=== PATIENT | male | born 1945 | race Caucasian/White ===

== ENCOUNTER 2017-07-23 17:13 | Inpatient (IN) | payer BC ==
[2017-07-23] MEDS ORDERED: ASPIRIN 81 MG CHEWABLE TABLET ONE (17:52)
[2017-07-23] MEDS ORDERED: LOSARTAN POTASSIUM 50 MG TABLET PO ONE (18:00)
[2017-07-23 18:21] LABS: Protime INR 1.17
[2017-07-23 18:27] LABS: Absolute Lymphocytes (CBC) 0.9 K/uL (0.7-4.9); Absolute Monocytes 0.7 K/uL (0.1-1.3); Absolute Neutrophil 5.7 K/uL (1.8-8.0); Basophils % 0.9 % (0-1.3); Eosinophils % 1.5 % (0-4.4); Hematocrit 28.7 % (39.6-49.0); MCH 26.6 pg (27.0-35.0); MCV 83.7 fL (80-100); MPV 7.2 fL (7.6-11.3); Monocytes % 9.7 % (3.3-12.3); RBC Red Blood Cell Count 3.43 M/uL (4.33-5.43)
[2017-07-23 18:29] LABS: Potassium 4.9 mEq/L (3.6-5.0)
[2017-07-23 18:35] LABS: Albumin 2.9 g/dL (3.2-5.5); Bilirubin Direct 0.2 mg/dL (0-0.2); Bilirubin Total 0.6 mg/dL (0.3-1.2); Magnesium 2.1 mg/dL (1.8-2.5); Protein, Total 6.8 g/dL (6.0-8.3)
--- NOTE | 2017-07-23 19:55 | EDPHYS ---
Physician Documentation [facility] Name: Navjot Collins Age: 72 yrs Sex: Male : 1945 Arrival Date: 07/23/2017 Time: 17:16 Bed 8 Private MD: ED Physician Tomas Moise HPI: 07/23 19:40 This 72 yrs old Male presents to ER via EMS with complaints of Shortness Of wa Breath. 19:40 The patient has shortness of breath at rest. Onset: The symptoms/episode began/occurred wa 3 week(s) ago. Duration: The symptoms are continuous, and are steadily getting worse, also c/o R leg swelling. denies chest pain. The patient's shortness of breath is aggravated by exertion, is alleviated by nothing. Associated signs and symptoms: Pertinent negatives: chest pain, non-productive cough, dizziness, fever, loss of consciousness. Severity of symptoms: At their worst the symptoms were moderate in the emergency department the symptoms are unchanged. The patient has experienced similar episodes in the past, a few times. The patient has not recently seen a physician. Historical: - Allergies: 17:24 Codeine; hb 17:24 fedrazil; hb 17:24 Vicodin; hb 17:24 Demerol; hb - Home Meds: 17:24 amiodarone 200 mg Oral tab 1 tab 2 times per day [Active]; atorvastatin 40 mg Oral tab hb 1 tab once daily [Active]; Bello Aspirin 81 mg tab Oral 1 tab once daily [Active]; bumetanide 1 mg Oral tab 1 tab once daily [Active]; carvedilol 6.25 mg Oral tab 1 tab every 12 hours [Active]; dobutamine intravenous 5 mcg/kg/min (89.4 Kg) [Active]; docusate sodium 100 mg Oral tab [Active]; Eliquis 5 mg Oral tab 1 tab 2 times per day [Active]; famotidine 20 mg Oral tab 1 tab once daily [Active]; famotidine 20 mg Oral tab [Active]; fenasteride 5 mg daily [Active]; glipizide 10 mg Oral tab 1 tab 2 times per day [Active]; Levemir 100 unit/mL subcutaneous soln 15 units in am and 3 units at 2100 [Active]; insulin regular human injection sliding tid [Active]; liothyronine 25 mcg Oral tab 1 tab once daily [Active]; losartan 50 mg Oral tab 1 tab once daily [Active]; metformin 500 mg Oral tab 1 tab 2 times per day [Active]; magnesium oxide 400 mg Oral tab [Active]; minocycline 100 mg Oral cap 1 cap every 12 hours [Active]; zinc sulfate 220 mg Oral tab daily [Active]; tamsulosin 0.4 mg Oral cp24 1 cap once daily [Active]; tramadol 50 mg Oral tab 1 tab every 6 hours [Active]; - PMHx: 17:24 CHF; Diabetes - NIDDM; HTN; hb - PSHx: 17:24 5 vessel bypass; left lower leg amputation; hb - Immunization history:: Adult Immunizations up to date. - Social history:: Smoking status: Patient/guardian denies using tobacco. - Family history:: not pertinent. - Hospitalizations: : No recent hospitalization is reported. ROS: 19:42 Constitutional: Negative for fever, chills, and weight loss, Eyes: Negative for injury, wa pain, redness, and discharge, ENT: Negative for injury, pain, and discharge, Neck: Negative for injury, pain, and swelling, Cardiovascular: Negative for chest pain, palpitations, and edema, Abdomen/GI: Negative for abdominal pain, nausea, vomiting, diarrhea, and constipation, Back: Negative for injury and pain, : Negative for injury, bleeding, discharge, and swelling, Neuro: Negative for headache, weakness, numbness, tingling, and seizure, Psych: Negative for depression, anxiety, suicide ideation, homicidal ideation, and hallucinations. 19:42 Respiratory: Positive for shortness of breath, at rest. Negative for cough. 19:42 MS/extremity: Positive for swelling, tenderness. 19:42 Skin: Positive for erythema, swelling, diffuse superficial wounds/ulcers. 19:42 All other systems are negative. Exam: 19:44 Constitutional: This is a well developed, well nourished patient who is awake, alert, wa and in no acute distress. Head/Face: Normocephalic, atraumatic. Eyes: Pupils equal round and reactive to light, extra-ocular motions intact. Lids and lashes normal. Conjunctiva and sclera are non-icteric and not injected. Cornea within normal limits. Periorbital areas with no swelling, redness, or edema. ENT: Nares patent. No nasal discharge, no septal abnormalities noted. Tympanic membranes are normal and external auditory canals are clear. Oropharynx with no redness, swelling, or masses, exudates, or evidence of obstruction, uvula midline. Mucous membranes moist. Neck: Trachea midline, no thyromegaly or masses palpated, and no cervical lymphadenopathy. Supple, full range of motion without nuchal rigidity, or vertebral point tenderness. No Meningismus. Chest/axilla: Normal chest wall appearance and motion. Nontender with no deformity. No lesions are appreciated. Abdomen/GI: Soft, non-tender, with normal bowel sounds. No distension or tympany. No guarding or rebound. No evidence of tenderness throughout. Back: No spinal tenderness. No costovertebral tenderness. Full range of motion. Neuro: Awake and alert, GCS 15, oriented to person, place, time, and situation. Cranial nerves II-XII grossly intact. Motor strength 5/5 in all extremities. Sensory grossly intact. Cerebellar exam normal. Normal gait. Psych: Awake, alert, with orientation to person, place and time. Behavior, mood, and affect are within normal limits. 19:44 Cardiovascular: Rate: normal, Heart sounds: murmur, systolic. 19:44 Respiratory: the patient does not display signs of respiratory distress, Respirations: normal, Breath sounds: coarse bilaterally. 19:44 Musculoskeletal/extremity: L BKA. R leg swelling with 1+ pitting edema. noted superficial cuts with erythema and superficial ulcerations. Vital Signs: 17:18 BP 129 / 73; Pulse 61; Resp 18; Temp 98.4; Pulse Ox 96% on R/A; Pain 0/10; hb 18:32 BP 122 / 86; Pulse 60; Resp 17; Pulse Ox 100% on R/A; Pain 0/10; hb 19:29 BP 117 / 55; Pulse 58; Resp 18 S; Temp 98.7(O); Pulse Ox 98% on R/A; Pain 0/10; ea 20:00 BP 120 / 77; Pulse 60; Resp 18; Pulse Ox 98% on R/A; Pain 0/10; ea 21:15 BP 118 / 68; Pulse 60; Resp 18; Pulse Ox 99% on R/A; ea 22:19 BP 102 / 68; Pulse 60; Resp 18; Temp 98; Pulse Ox 97% on R/A; Pain 0/10; mg2 MDM: 17:16 Patient medically screened. pa 19:46 Differential diagnosis: CHF exacerbation, Myocardial Infarction pneumonia, pulmonary wa edema, Pulmonary Embolism Unstable Angina cellulitis. DVT. Data reviewed: vital signs, nurses notes, lab test result(s), EKG, radiologic studies. Test interpretation: by ED physician or midlevel provider: EKG: HR: 60. rightward axis. non-specific ST-T changes. 19:48 Test interpretation: by ED physician or midlevel provider: labs noted for anemia. pa elevated BNP and d-dimer. renal insufficiency. hyperglycemia. 07/23 17:33 Order name: CPK; Complete Time: 19:22 07/23 17:33 Order name: Amylase, Serum; Complete Time: 19:22 07/23 17:33 Order name: Blood Culture Adult (2) 07/23 17:33 Order name: BMP; Complete Time: 19:22 07/23 17:33 Order name: BNP; Complete Time: 19:22 07/23 17:33 Order name: CBC with Diff; Complete Time: 19:22 07/23 17:33 Order name: D-Dimer; Complete Time: 19:22 07/23 17:33 Order name: Hepatic Function; Complete Time: 19:22 07/23 17:33 Order name: Lipase; Complete Time: 19:23 07/23 17:33 Order name: Magnesium; Complete Time: 19:23 07/23 17:33 Order name: PT-INR; Complete Time: 19:22 07/23 17:33 Order name: Ptt, Activated; Complete Time: 19:23 07/23 17:33 Order name: Troponin (emerg Dept Use Only); Complete Time: 19:23 07/23 17:33 Order name: EKG; Complete Time: 18:00 07/23 17:33 Order name: Cardiac monitoring; Complete Time: 17:53 07/23 17:33 Order name: EKG - Nurse/Tech; Complete Time: 18:57 07/23 17:33 Order name: IV Saline Lock; Complete Time: 17:53 07/23 17:33 Order name: Labs collected and sent; Complete Time: 18:57 07/23 17:33 Order name: O2 Per Protocol; Complete Time: 18:57 07/23 17:33 Order name: O2 Sat Monitoring; Complete Time: 18:57 pa 07/23 18:22 Order name: Chest Single View [facility] 07/23 19:24 Order name: US Extremity Venous Uni Ltd pa 07/23 19:25 Order name: CT Chest For PE Angio; Complete Time: 20:32 pa Administered Medications: 17:55 Drug: Aspirin Chewable Tablet 324 mg Route: PO; hb 19:00 Follow up: Response: No adverse reaction ea 18:08 Drug: Losartan 50 mg Route: PO; aj 19:00 Follow up: Response: No adverse reaction ea 21:00 Drug: Lasix 40 mg Route: IVP; Site: right antecubital; ea 21:19 Follow up: Response: No adverse reaction ea Disposition: 07/23/17 19:54 Hospitalization ordered by Rodo Paz for Inpatient Admission. Preliminary diagnosis are dyspnea, Right Lower Extremity Swelling, CHF, R leg cellulitis. - Bed requested for Telemetry/MedSurg (Inpatient). - Status is Inpatient Admission. mg2 - Condition is Stable. - Problem is an acute exacerbation. - Symptoms have improved. UTI on Admission? No Signatures: Dispatcher [employer] EDLA Ana Paula Kumar RN Tisha Hatfield RN RN Dayna Cabral [facility] Carey Villar RN RN Tomas Diaz MD MD wa Gardose, Michele RN RN mg2 Corrections: (The following items were deleted from the chart) 18:22 18:00 Chest Pa And Lat (2 Views)+[email or web address] ordered. [facility] 19:54 19:54 Hospitalization Ordered by Rodo Paz MD for Inpatient Admission. Preliminary pa diagnosis is dyspnea; Right Lower Extremity Swelling; CHF; R leg cellulitis. Bed requested for Telemetry/MedSurg (Inpatient). Status is Inpatient Admission. Condition is Stable. Problem is an acute exacerbation. Symptoms have improved. UTI on Admission? No. pa 20:48 19:54 07/23/2017 19:54 Hospitalization Ordered by Rodo Paz MD for Inpatient [facility] Admission. Preliminary diagnosis is dyspnea; Right Lower Extremity Swelling; CHF; R leg cellulitis. Bed requested for Telemetry/MedSurg (Inpatient). Status is Inpatient Admission. Condition is Stable. Problem is an acute exacerbation. Symptoms have improved. UTI on Admission? No. wa 22:33 20:48 07/23/2017 19:54 Hospitalization Ordered by Rodo Paz MD for Inpatient mg2 Admission. Preliminary diagnosis is dyspnea; Right Lower Extremity Swelling; CHF; R leg cellulitis. Bed requested for Telemetry/MedSurg (Inpatient). Status is Inpatient Admission. Condition is Stable. Problem is an acute exacerbation. Symptoms have improved. UTI on Admission? No. dh3
--- NOTE | 2017-07-23 19:55 | ER ---
Nurse's Notes [facility] Name: Navjot Collins Age: 72 yrs Sex: Male : 1945 Arrival Date: 07/23/2017 Time: 17:16 Bed 8 Private MD: Diagnosis: dyspnea;Right Lower Extremity Swelling;CHF;R leg cellulitis Presentation: 07/23 17:17 Presenting complaint: EMS states: SOB and sinus congestion x 3 days. BP 137/74, HR 60, hb SpO2 100% on RA, BGL 470. Transition of care: patient was not received from another setting of care. Onset of symptoms is unknown. Care prior to arrival: None. 17:17 Method Of Arrival: EMS: [facility] hb 17:17 Acuity: ZENAIDA 3 hb Historical: - Allergies: 17:24 Codeine; hb 17:24 fedrazil; hb 17:24 Vicodin; hb 17:24 Demerol; hb - Home Meds: 17:24 amiodarone 200 mg Oral tab 1 tab 2 times per day [Active]; atorvastatin 40 mg Oral tab hb 1 tab once daily [Active]; Bello Aspirin 81 mg tab Oral 1 tab once daily [Active]; bumetanide 1 mg Oral tab 1 tab once daily [Active]; carvedilol 6.25 mg Oral tab 1 tab every 12 hours [Active]; dobutamine intravenous 5 mcg/kg/min (89.4 Kg) [Active]; docusate sodium 100 mg Oral tab [Active]; Eliquis 5 mg Oral tab 1 tab 2 times per day [Active]; famotidine 20 mg Oral tab 1 tab once daily [Active]; famotidine 20 mg Oral tab [Active]; fenasteride 5 mg daily [Active]; glipizide 10 mg Oral tab 1 tab 2 times per day [Active]; Levemir 100 unit/mL subcutaneous soln 15 units in am and 3 units at 2100 [Active]; insulin regular human injection sliding tid [Active]; liothyronine 25 mcg Oral tab 1 tab once daily [Active]; losartan 50 mg Oral tab 1 tab once daily [Active]; metformin 500 mg Oral tab 1 tab 2 times per day [Active]; magnesium oxide 400 mg Oral tab [Active]; minocycline 100 mg Oral cap 1 cap every 12 hours [Active]; zinc sulfate 220 mg Oral tab daily [Active]; tamsulosin 0.4 mg Oral cp24 1 cap once daily [Active]; tramadol 50 mg Oral tab 1 tab every 6 hours [Active]; - PMHx: 17:24 CHF; Diabetes - NIDDM; HTN; hb - PSHx: 17:24 5 vessel bypass; left lower leg amputation; hb - Immunization history:: Adult Immunizations up to date. - Social history:: Smoking status: Patient/guardian denies using tobacco. - Family history:: not pertinent. - Hospitalizations: : No recent hospitalization is reported. Screenin:26 Abuse screen: Denies threats or abuse. Denies injuries from another. Nutritional hb screening: No deficits noted. Tuberculosis screening: No symptoms or risk factors identified. Fall Risk Total [place] Fall Scale indicates Low Risk Score (25-44 pts). Fall prevention measures have been instituted. Side Rails Up X 2 Frequent Obs/Assesments occuring As available Patient and Family Educated on Fall Prevention Program and strategies. Assessment: 17:45 General: Appears in no apparent distress. Behavior is calm, cooperative. Pain: Denies hb pain. Neuro: Level of Consciousness is awake, alert, obeys commands, Oriented to person, place, time, situation. Cardiovascular: Heart tones S1 S2 present Capillary refill < 3 seconds Patient's skin is warm and dry. Rhythm is regular. Respiratory: Airway is patent Trachea midline Respiratory effort is even, unlabored, Respiratory pattern is regular, symmetrical, Breath sounds are clear bilaterally. GI: No signs and/or symptoms were reported involving the gastrointestinal system. : No signs and/or symptoms were reported regarding the genitourinary system. EENT: No signs and/or symptoms were reported regarding the EENT system. Derm: No signs and/or symptoms reported regarding the dermatologic system. wounds in various stages of healing noted to right lower leg. Musculoskeletal: No signs and/or symptoms reported regarding the musculoskeletal system. 18:32 Reassessment: Patient appears in no apparent distress at this time. Patient and/or hb family updated on plan of care and expected duration. Pain level reassessed. Patient is alert, oriented x 3, equal unlabored respirations, skin warm/dry/pink. 19:15 General: Appears in no apparent distress. Behavior is calm, cooperative. Pain: Denies ea pain. Neuro: Level of Consciousness is awake, alert, obeys commands, Oriented to person, place, time, situation. Cardiovascular: Heart tones S1 S2 present Patient's skin is warm and dry. Respiratory: Airway is patent Respiratory effort is even, unlabored, Respiratory pattern is regular, symmetrical, Breath sounds are clear bilaterally. GI: No signs and/or symptoms were reported involving the gastrointestinal system. : No signs and/or symptoms were reported regarding the genitourinary system. EENT: No signs and/or symptoms were reported regarding the EENT system. Derm: No signs and/or symptoms reported regarding the dermatologic system. wounds noted to right lower leg. Musculoskeletal: No signs and/or symptoms reported regarding the musculoskeletal system. 20:00 Reassessment: Patient and/or family updated on plan of care and expected duration. Pain ea level reassessed. Patient is alert, oriented x 3, equal unlabored respirations, skin warm/dry/pink. 21:27 Reassessment: Patient and/or family updated on plan of care and expected duration. Pain ea level reassessed. Patient is alert, oriented x 3, equal unlabored respirations, skin warm/dry/pink. 22:19 Reassessment: Patient and/or family updated on plan of care and expected duration. Pain mg2 level reassessed. Patient is alert, oriented x 3, equal unlabored respirations, skin warm/dry/pink. Report given to Alba ROQUE on fourth floor. Vital Signs: 17:18 BP 129 / 73; Pulse 61; Resp 18; Temp 98.4; Pulse Ox 96% on R/A; Pain 0/10; hb 18:32 BP 122 / 86; Pulse 60; Resp 17; Pulse Ox 100% on R/A; Pain 0/10; hb 19:29 BP 117 / 55; Pulse 58; Resp 18 S; Temp 98.7(O); Pulse Ox 98% on R/A; Pain 0/10; ea 20:00 BP 120 / 77; Pulse 60; Resp 18; Pulse Ox 98% on R/A; Pain 0/10; ea 21:15 BP 118 / 68; Pulse 60; Resp 18; Pulse Ox 99% on R/A; ea 22:19 BP 102 / 68; Pulse 60; Resp 18; Temp 98; Pulse Ox 97% on R/A; Pain 0/10; mg2 ED Course: 17:16 Patient arrived in ED. hb 17:16 Jose Maria, Tomas, MD is Attending Physician. wa 17:18 Triage completed. hb 17:26 Arm band placed on right wrist. hb 17:45 Patient has correct armband on for positive identification. Placed in gown. Bed in low hb position. Call light in reach. Side rails up X 1. 17:45 Inserted saline lock: 18 gauge in right antecubital area, using aseptic technique. hb Blood collected. 18:04 EKG done, by stress test technician. reviewed by Tomas Moise MD. at1 18:17 Tisha Ward, RN is Primary Nurse. hb 18:19 X-ray completed. Portable x-ray completed in exam room. Patient tolerated procedure ml well. 18:23 Chest Single View In Process Unspecified. EDMS 18:29 Notified ED physician of [facility] [place] notified [id number]. hb 19:[address] via stretcher. nj 19:52 Rodo Paz MD is Hospitalizing Provider. wa 20:02 CT Chest For PE Angio In Process Unspecified. EDMS 20:39 US Extremity Venous Uni Ltd In Process Unspecified. EDMS 21:28 No provider procedures requiring assistance completed. Patient admitted, IV remains in ea place. Administered Medications: 17:55 Drug: Aspirin Chewable Tablet 324 mg Route: PO; hb 19:00 Follow up: Response: No adverse reaction ea 18:08 Drug: Losartan 50 mg Route: PO; aj 19:00 Follow up: Response: No adverse reaction ea 21:00 Drug: Lasix 40 mg Route: IVP; Site: right antecubital; ea 21:19 Follow up: Response: No adverse reaction ea Outcome: 19:54 Decision to Hospitalize by Provider. wa 21:28 Instructed on the need for admit. ea 22:20 Admitted to Med/surg accompanied by tech, room 412, with chart, Report called to Alba arango RN 22:23 Condition: stable mg2 22:33 Patient left the ED. mg2 Signatures: Dispatcher [employer] EDAna Paula Jones, RN Dorothy Iyer Amanda, virtualization engineer EKG Tat1 Tisha Ward, RN RN hb Baldev, Gary nj Villar, Carey, RN RN ea Jose Maria, Tomas, MD MD wa Gardose, Titi, RN RN mg2
--- NOTE | 2017-07-23 20:01 | RAD REPORT ---
EXAM DESCRIPTION: RAD - Chest Single View - 07/23/2017 6:23 pm CLINICAL HISTORY: Shortness of breath COMPARISON: November 2016 TECHNIQUE: AP portable chest image was obtained 1808 hours . FINDINGS: Opacification has developed in the lateral mid right lung field. Bilateral pleural effusio ns are present new or enlarged from the prior study. Cardiac silhouette has enlarged slightly. Sterno oneal wires are in place. Interstitial markings are diffusely prominent. Trachea is midline. No pneumo thorax. No gross bony abnormality seen. No acute aortic findings suspected. IMPRESSION: Lateral right midlung field opacification suspicious for pneumonia. Cardiomegaly, pleural effusions and increased interstitial markings suspicious for a concurrent CHF o r volume overload.
--- NOTE | 2017-07-23 20:12 | RAD REPORT ---
EXAM DESCRIPTION: CT - Chest For Pe Angio - 07/23/2017 8:02 pm CLINICAL HISTORY: Chest pain, shortness of breath, sinus congestion COMPARISON: None. TECHNIQUE: Dynamically enhanced 3 mm thick images of the chest were obtained during administration o f approximately 150mL Isovue 370 IV contrast. Coronal and oblique reconstruction images were generate d and reviewed. Exam utilizes a protocol to evaluate the pulmonary arterial tree. All CT scans are performed using dose optimization technique as appropriate and may include automated exposure control or mA/KV adjustment according to patient size. FINDINGS: No pulmonary emboli are identified. The aorta as imaged shows no acute or suspicious finding. Heart size is upper normal. No pericardial thickening or effusion. Interstitial markings are prominent and there are moderate bilateral pleural effusions. Fluid is seen along the fissures as well. Patient has a fluid retention pattern in the subcutaneous fatty tissues. No pneumothorax or pleural based mass. No mediastinal or hilar suspicious masses. No chest wall masses or abnormal axillary lymphadenopathy. Large thyroid gland extending into the substernal chest. IMPRESSION: No pulmonary emboli identified. Moderate bilateral pleural effusions with lung base atelectasis. There is diffuse interstitial thicke janae in subcutaneous fluid retention. Findings are all consistent with moderate severity CHF/ volume overload. The right midlung field opacification on the chest film is fluid along the major fissure. A consolida omega pneumonia is no longer suspected.
[2017-07-23] MEDS ORDERED: FUROSEMIDE 40 MG/4 ML VIAL ONE (20:29)
--- NOTE | 2017-07-23 20:50 | RAD REPORT ---
EXAM DESCRIPTION: VAS - Extremity Venous Uni Ltd - 07/23/2017 8:39 pm CLINICAL HISTORY: Leg pain and swelling COMPARISON: None. TECHNIQUE: Real-time sonographic evaluation of the right lower extremity deep venous systems was per formed. FINDINGS: Normal compressibility, flow augmentation, phasic flow and spontaneous flow are identified in the right lower extremity deep venous system. No intraluminal filling defects seen. Soft tissue edema is present with no abscess or drainable fluid collection. IMPRESSION: No DVT in the right lower extremity. Soft tissue edema without abscess or drainable fluid collection.
[2017-07-23] MEDS ORDERED: ACETAMINOPHEN 500 MG TAB PO PRN (22:42)
[2017-07-23] MEDS ORDERED: Levofloxacin500mg IV 500 MG/100 ML BAG IV SCH (22:42)
[2017-07-23] MEDS ORDERED: ONDANSETRON 4 MG/2 ML VIAL IV PRN (22:42)
[2017-07-23] MEDS: APIXABAN 5 MG TABLET PO SCH (22:42)
--- NOTE | 2017-07-23 23:43 | P.HP ---
Certification for Inpatient Patient admitted to: Inpatient With expected LOS: >2 Midnights Practitioner: I am a practitioner with admitting privileges, knowledge of patient current condition, hospital course, and medical plan of care. Services: Services provided to patient in accordance with Admission requirements found in Title 42 Section 412.3 of the Code of Federal Regulations Patient History Date of Service: 07/23/17 Reason for admission: acute on chronic systolic CHF History of Present Illness: Mr Collins is a 72 years old male with history of DM II, CKD, CAD s/p CABG, right BKA, who came to ED complaining of progressive SOB for the last 3 weeks. He also noticed swelling in his right leg. Also he has several wound lesions with a redness area on his right leg. No history of fever or chills. The patient denied any chest pain at all. No cough or wheezing. In ER Lab work revealed normal WBC count, D-Dimer elevated. CTA chest shows no PE but signs of fluid overload. Allergies meperidine [From Demerol] Allergy (Unverified 07/23/17 22:37) Unknown pseudoephedrine Allergy (Verified 10/10/16 11:24) Hives acetaminophen [From Vicodin] Adverse Reaction (Verified 10/10/16 11:24) Nausea/Vomiting codeine Adverse Reaction (Verified 10/10/16 11:24) Nausea/Vomiting hydrocodone bitartrate [From Vicodin] Adverse Reaction (Verified 10/10/16 11:24) Nausea/Vomiting [place] Allergy (Uncoded 10/10/16 11:24) Unknown Home Medications: Aspirin [Bello Chewable Aspirin] 1 tab PO DAILY 05/31/15 Losartan Potassium [Cozaar*] 50 mg PO DAILY #30 tablet 07/10/15 Tamsulosin HCl [Flomax] 0.4 mg PO DAILY #30 cap.er.24h 07/10/15 Ascorbic Acid [Vitamin C*] 1,000 mg PO DAILY 10/09/16 Carvedilol [Coreg*] 6.25 mg PO BID 10/09/16 Finasteride [Proscar*] 5 mg PO DAILY 10/09/16 Glipizide [Glipizide Xl] 10 mg PO BID 10/09/16 Metformin ER [Glucophage ER*] 500 mg PO BID 10/09/16 Zinc Sulfate [Zinc Sulfate*] 220 mg PO DAILY 10/09/16 Amiodarone HCl [Pacerone] 1 tab PO BID 12/07/16 Apixaban [Eliquis] 1 tab PO BID 12/07/16 Atorvastatin Calcium [Lipitor] 40 mg PO BEDTIME 12/07/16 Bumetanide 1 tab PO BID 12/07/16 Docusate Sodium [Stool Softener] 50 mg PO DAILY 12/07/16 Famotidine [Pepcid*] 1 tab PO BEDTIME 12/07/16 Liothyronine Sodium [Cytomel] 1 tab PO [id number] 12/07/16 Magnesium Oxide [Mag 0X*] 1 tab PO BID 12/07/16 traMADol HCL [Ultram*] 1 tab PO Q6H PRN MDD 200mg 12/07/16 Fluconazole [Diflucan] 100 mg PO DAILY #5 tablet 12/09/16 Amox/Clavulanate [Augmentin 500 mg Tab*] 500 mg PO BID #28 tab 12/11/16 - Past Medical/Surgical History Diabetic: Yes -: high cholesterol -: HTN -: CAD -: chronic systolic CHF -: carotid stent -: CABG - Family History Father -: Heart disease Mother -: Lung disease - Social History Smoking Status: Never smoker Alcohol use: No CD- Drugs: No Caffeine use: No Place of Residence: Home Review of Systems 10-point ROS is otherwise unremarkable Physical Examination - Vital Signs Temperature: 98 F Blood Pressure: 102/68 Pulse: 60 Respirations: 18 - Physical Exam General: Alert, In no apparent distress HEENT: Atraumatic, PERRLA, Mucous membr. moist/pink, EOMI, Sclerae nonicteric Neck: Supple, 2+ carotid pulse no bruit, No LAD, JVD distended Respiratory: Normal air movement, Crackles/rales (bibasilar rales) Cardiovascular: Regular rate/rhythm, Normal S1 S2 Gastrointestinal: Normal bowel sounds, No tenderness Musculoskeletal: No tenderness Integumentary: No rashes Neurological: Normal speech, Normal strength at 5/5 x4 extr, Normal tone, Normal affect Lymphatics: No axilla or inguinal lymphadenopathy - Studies Laboratory Data (last 24 hrs) 07/23/17 17:33: PT 13.8 H, INR 1.17, APTT 31.8 07/23/17 17:33: WBC 7.5, Hgb 9.1 L, Hct 28.7 L, Plt Count 399 07/23/17 17:33: B-Natriuretic Peptide 1745 H 07/23/17 17:33: Sodium 135, Potassium 4.9, BUN 35 H, Creatinine 1.31 H, Glucose 386 H, Magnesium 2.1, Total Bilirubin 0.6, AST 13, ALT 15, Alkaline Phosphatase 85, Amylase 44, Lipase 31 Assessment and Plan - Problems (Diagnosis) (1) Cellulitis Current Visit: Yes Status: Acute Qualifiers: Site of cellulitis: extremity Site of cellulitis of extremity: lower extremity Laterality: right Qualified Code(s): L03.115 - Cellulitis of right lower limb (2) Acute on chronic systolic CHF (congestive heart failure) Current Visit: Yes Status: Acute (3) Hx of CABG Current Visit: No Status: Acute (4) Hypertension Onset Date: 06/18/15 Current Visit: No Status: Acute Qualifiers: Hypertension type: essential hypertension Qualified Code(s): I10 - Essential (primary) hypertension (5) Diabetes type 2, controlled Onset Date: 12/08/16 Current Visit: No Status: Chronic Qualifiers: 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 He has also right leg cellulitis. Will order IV lasix, EHCO in am, will resume home medication when verified. Start empiric antibiotic for LE cellulitis. - Advance Directives Does patient have a Living Will: No Does patient have a Durable POA for Healthcare: No - Code Status/Comfort Care Code Status Assessed: Yes Code Status: Full Code
[2017-07-24] MEDS: INSULIN -REGULAR HUMAN 50 UNIT/0.5 ML ML SQ SCH ×5 (00:32→22:20)
[2017-07-24] MEDS: FUROSEMIDE 40 MG/4 ML VIAL IV SCH ×3 (01:00→16:36)
[2017-07-24] MEDS ORDERED: VANCOMYCIN 1.5 GM in NA CHLORIDE 0.9% 500 ML IVPB SCH (05:00)
--- NOTE | 2017-07-24 06:44 | EKG ---
Test Date: 2017-07-23 Test Time: 17:49:48 Appliance Fixer: XIANG MEASUREMENT RESULTS: Intervals: Rate: 60 SC: 204 QRSD: 114 QT: 492 QTc: 492 Curlew: P: 33 SC: 204 QRS: 103 T: 17 INTERPRETIVE STATEMENTS: Normal sinus rhythm Rightward axis Nonspecific T wave abnormality Prolonged QT Abnormal ECG Compared to ECG 12/07/2016 07:30:00 intraventricular conduction delay no longer present Electronically Signed On 07-24-17 06:43:41 CDT by Cristino Ellis
[2017-07-24 07:22] LABS: Potassium 4.6 mEq/L (3.6-5.0)
[2017-07-24 07:27] LABS: Absolute Monocytes 0.8 K/uL (0.1-1.3); Absolute Neutrophil 5.2 K/uL (1.8-8.0); Basophils % 0.6 % (0-1.3); Eosinophils % 2.8 % (0-4.4); Hematocrit 26.3 % (39.6-49.0); Lymphocytes % 13.7 % (15.3-44.8); MCH 27.5 pg (27.0-35.0); MCV 82.9 fL (80-100); MPV 6.9 fL (7.6-11.3); Monocytes % 11.6 % (3.3-12.3); RBC Red Blood Cell Count 3.17 M/uL (4.33-5.43)
[2017-07-24] MEDS: APIXABAN 5 MG TABLET PO SCH (08:22)
[2017-07-24] MEDS: VANCOMYCIN 1.5 GM in NA CHLORIDE 0.9% 500 ML IVPB SCH (09:30)
[2017-07-24] MEDS: ASPIRIN 81 MG CHEWABLE TABLET PO SCH (11:36)
[2017-07-24] MEDS: ASCORBIC ACID 500 MG TABLET PO SCH (11:36)
[2017-07-24] MEDS: ZINC SULFATE 220 MG CAP PO SCH (11:36)
[2017-07-24] MEDS: TAMSULOSIN 0.4 MG SR CAP PO SCH (11:37)
[2017-07-24] MEDS: FINASTERIDE 5 MG TAB PO SCH (11:38)
[2017-07-24] MEDS ORDERED: GLUCAGON 1 MG/VIAL IM PRN (12:35)
[2017-07-24] MEDS ORDERED: D50W 25 GM/50 ML SYRINGE IV PRN (12:35)
--- NOTE | 2017-07-24 12:49 | PN ---
Date of Progress Note: 07/24/2017 Subjective: The patient seen and examined, chart reviewed, and case discussed with RN. The patient states that he is not having any pain. His shortness of breath has improved significantly. Review of Systems: Negative except as above. Medications: Reviewed. Physical Examination: Vital Signs: Temperature 98.8, heart rate 58, blood pressure 100/54, respirations 16, and O2 94% on room air. General: Awake, alert, oriented x3. Not in any acute distress. Elderly male. CV: S1, S2. Regular rate and rhythm. Peripheral pulses present. Respiratory: Some diminished breath sounds at the bases. Some crackles heard. No wheezing. No use of accessory muscles. Gastrointestinal: Abdomen is soft, nontender, nondistended. Positive bowel sounds. Extremities: No clubbing, cyanosis, or edema. Musculoskeletal: The patient has a left BKA. Neurologic: Nonfocal. The patient does have some diabetic neuropathy in his right leg. Skin: Erythema of the right lower extremity with some swelling. No weeping. Mild tenderness to pal pation. Multiple healed abrasions and excoriation. Laboratory Data: Sodium 135, potassium 4.6, chloride 99, CO2 31, BUN 36, creatinine 1.37, glucose 30 9, calcium 8.5, and magnesium 2. D-dimer 1749. WBC 7.3, H and H 8.7, 26.3, platelets 394, and neutr ophils 71%. Blood cultures pending. CT angio of the chest shows no PE, moderate bilateral pleural e ffusions with lung base atelectasis, diffuse interstitial thickening and subcutaneous fluid retention . Findings are all consistent with moderate severity CHF, volume overload. Right mid lung field opa cification. The chest film is fluid along the major fissure. Consolidated pneumonia is no longer lindsay spected. Doppler of the lower extremity shows no DVT in the right lower extremity. Soft tissue memo a without abscess or drainable fluid collection. Assessment: A 72-year-old male with; 1.Right lower extremity cellulitis. We will continue with IV antibiotics. Follow up on blood cultu res. Elevate. 2.Acute on chronic systolic congestive heart failure. We will continue congestive heart failure francisco j delines. Repeat chest x-ray in a day or two depending on clinical improvement. 3.Coronary artery disease, status post coronary artery bypass graft, [place] artery, [place] heart wit hout angina. 4.Essential hypertension. Resume home medications. 5.Diabetes mellitus type 2, uncontrolled without long-term use of insulin, with skin complications a nd hyperglycemia. 6.Hypercholesterolemia. 7.We will continue statin. 8.History of paroxysmal atrial fibrillation. The patient states that he was initially on apixaban a nd amiodarone, however, was taken off by his power checker recently after a negative Holter monitor te sting that revealed no arrhythmias. 9.Gastrointestinal and deep venous thrombosis prophylaxis addressed. Plan: Continue antibiotics. Follow up with echocardiogram. /FRANCY Voice ID: [id number] Report ID: [id number]
[2017-07-24] MEDS: GLIPIZIDE S.A. 5 MG TAB PO SCH (16:35)
[2017-07-24] MEDS ORDERED: GLIPIZIDE S.A. 5 MG TAB PO SCH (21:00)
[2017-07-24] MEDS: CARVEDILOL 6.25 MG TAB PO SCH (21:00)
[2017-07-24] MEDS: ATORVASTATIN 40 MG TAB PO SCH (22:19)
[2017-07-24] MEDS: INSULIN DETEMIR 100 UNIT/1 ML INSULIN SQ SCH (22:19)
[2017-07-24] MEDS: FAMOTIDINE 20 MG TAB PO SCH (22:19)
[2017-07-24] MEDS: MAGNESIUM OXIDE 400 MG TAB PO SCH (22:19)
[2017-07-25] MEDS: FUROSEMIDE 40 MG/4 ML VIAL IV SCH ×3 (00:29→17:14)
[2017-07-25 05:20] LABS: Absolute Monocytes 0.8 K/uL (0.1-1.3); Absolute Neutrophil 5.5 K/uL (1.8-8.0); Basophils % 0.6 % (0-1.3); Eosinophils % 3.3 % (0-4.4); Hematocrit 29.8 % (39.6-49.0); Lymphocytes % 13.6 % (15.3-44.8); MCH 27.3 pg (27.0-35.0); MCV 81.9 fL (80-100); MPV 6.9 fL (7.6-11.3); RBC Red Blood Cell Count 3.64 M/uL (4.33-5.43)
[2017-07-25 05:35] LABS: Bilirubin Total 0.6 mg/dL (0.3-1.2); Potassium 4.5 mEq/L (3.6-5.0)
[2017-07-25 05:36] LABS: Albumin 2.7 g/dL (3.2-5.5); Protein, Total 6.2 g/dL (6.0-8.3)
[2017-07-25] MEDS: LIOTHYRONINE SOD 25 MCG TAB PO SCH (05:59)
[2017-07-25] MEDS: Levofloxacin500mg IV 500 MG/100 ML BAG IV SCH (05:59)
[2017-07-25] MEDS: GLIPIZIDE S.A. 5 MG TAB PO SCH ×2 (08:29→17:14)
[2017-07-25] MEDS: INSULIN -REGULAR HUMAN 50 UNIT/0.5 ML ML SQ SCH ×4 (08:29→21:54)
[2017-07-25] MEDS: VANCOMYCIN 1.5 GM in NA CHLORIDE 0.9% 500 ML IVPB SCH (08:31)
[2017-07-25] MEDS: ASCORBIC ACID 500 MG TABLET PO SCH (09:28)
[2017-07-25] MEDS: BUMETANIDE 1 MG TABLET PO SCH (09:28)
[2017-07-25] MEDS: ZINC SULFATE 220 MG CAP PO SCH (09:28)
[2017-07-25] MEDS: CARVEDILOL 6.25 MG TAB PO SCH ×2 (09:29→21:40)
[2017-07-25] MEDS: MAGNESIUM OXIDE 400 MG TAB PO SCH ×2 (09:29→21:40)
[2017-07-25] MEDS: TAMSULOSIN 0.4 MG SR CAP PO SCH (09:30)
[2017-07-25] MEDS: LOSARTAN POTASSIUM 50 MG TABLET PO SCH (09:30)
[2017-07-25] MEDS: ASPIRIN 81 MG CHEWABLE TABLET PO SCH (09:30)
[2017-07-25] MEDS: FINASTERIDE 5 MG TAB PO SCH (09:30)
--- NOTE | 2017-07-25 13:33 | CON ---
Chief Complaint: Swelling of his legs, shortness of breath. History Of Present Illness: Mr. Collins is a gentleman, who has diabetes and severe vascular disease. He had bypass surgery in September 2016 after we found severe 3-vessel CAD. He has underlying diabetes. 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 He has a histor y of hypothyroidism, diabetes, hypertension, CAD, dyslipidemia, peptic ulcer disease, congestive hear t failure. He gets a lot of injuries to his right shins as part of his daily activities. He does no t have a left [place], it is an artificial leg that apparently does not cause much pain in him and we lindsay spect he has severe peripheral neuropathy. He uses no tobacco now, rare alcohol, for the last 2 amrit hs he has been grieving. He lost his . He has been eating mostly restaurant food, fast foods, e asy to prepare foods. He is aware that he is having way too much salt intake. Physical Examination: Vital Signs: Height 6 feet 2, 187 pounds. General: Appears to be his stated age. HEENT: Unremarkable. Lungs: Clear. Heart: Reveals an S4 gallop. Abdomen: Soft. Extremities: Left kotks-myz-fxhi amputation stump looks good. On the right, there are numerous lace rations, most of them appear to be healing. The lower part of his calf is cyanotic, cool to touch an d there is 2 to 3+ edema and there seems to be cellulitis of the leg as well. Laboratory Data: Reveals creatinine of 1.41. He has a hemoglobin of 9.1 on arrival, it is 9.9 today . His white blood cell count is normal at 7500, there does seem to be a minimal left shift, the high est percent of neutrophils was 75.9. Impression: The patient is volume overloaded, he needs diuretics. He is getting antibiotics. I joana pect his leg will start to work better. We will teach him about sodium restriction instruction on a 2 g sodium diet and try to help and reestablish his level of stability, at some point an echocardiogr am will be useful. He has had a CT angio of the chest that is negative for PE and I do not think we have an echocardiogram any more recent than from before when he had heart surgery, at that point his ejection fraction was 45% to 49%. Thank you very much for kind referral of Mr. Collins. I will follow him with you. LAUREL Voice ID: [id number] Report ID: [id number]
--- NOTE | 2017-07-25 15:02 | PN ---
Date of Progress Note: 07/25/2017 Subjective: The patient seen and examined. Chart reviewed and case discussed with RN. The patient states he is doing better. His shortness of breath has improved. Lower extremity redness has also i mproved. The patient was seen by Dr. Ellis, this morning. Review of Systems: Negative except as above. Medications: Reviewed. Physical Examination: Vital Signs: Temperature 98.2, heart rate is 62, blood pressure 114/64, respirations 18, O2 of 99% o n room air. General: Awake, alert, oriented x3, not in any acute distress. Elderly male. CV: S1, S2. Regular rate and rhythm. Peripheral pulses present. Respiratory: Moving air well bilaterally. No wheezing or crackles. Gastrointestinal: Abdomen is soft, nontender, nondistended. Positive bowel sounds. Extremities: No clubbing, cyanosis. The patient does have some edema on the right lower extremity. Musculoskeletal: Left BKA. Neurologic: Nonfocal. Laboratory Data: Sodium 136, potassium 4.5, chloride 97, CO2 of 33, BUN 34, creatinine 1.41, glucose 206, calcium 8.7. WBC 7.7, H and H 9.9 and 29.8, platelets 421. Blood cultures, no growth to date. Assessment And Plan: A 72-year-old male with: 1.Right lower extremity cellulitis. We will continue IV antibiotics. Erythema is improving. Nannette nue elevation. Blood cultures, no growth to date. 2.Bykfo-vl-clhthci systolic congestive heart failure. We will continue with congestive heart failur e guidelines. Repeat chest x-ray in a.m. Appreciate Dr. Ellis' input. 3.Coronary artery disease status post coronary artery bypass graft, [place] artery, [place] heart with out angina. 4.Essential hypertension, stable. 5.Diabetes mellitus type 2, uncontrolled without long-term use of insulin with hyperglycemia. We wi ll adjust insulin dose. 6.Hypercholesterolemia. Continue statin. 7.History of paroxysmal atrial fibrillation, currently in sinus rhythm. The patient states he is no longer taking Eliquis. 8.Gastrointestinal and deep venous thrombosis prophylaxis addressed. SA/MODL Voice ID: [id number] Report ID: [id number]
[2017-07-25] MEDS: ENOXAPARIN 30 MG/0.3 ML SQ SCH (17:15)
[2017-07-25] MEDS: ATORVASTATIN 40 MG TAB PO SCH (21:40)
[2017-07-25] MEDS: FAMOTIDINE 20 MG TAB PO SCH (21:40)
[2017-07-25] MEDS: INSULIN DETEMIR 100 UNIT/1 ML INSULIN SQ SCH (21:55)
[2017-07-26] MEDS: FUROSEMIDE 40 MG/4 ML VIAL IV SCH ×2 (00:11→09:00)
[2017-07-26 05:16] LABS: Absolute Lymphocytes (CBC) 1.2 K/uL (0.7-4.9); Absolute Neutrophil 4.9 K/uL (1.8-8.0); Basophils % 0.9 % (0-1.3); Eosinophils % 2.9 % (0-4.4); Hematocrit 30.2 % (39.6-49.0); Lymphocytes % 16.6 % (15.3-44.8); MCH 27.1 pg (27.0-35.0); MCV 82.7 fL (80-100); Monocytes % 13.1 % (3.3-12.3); RBC Red Blood Cell Count 3.65 M/uL (4.33-5.43)
[2017-07-26 05:32] LABS: Albumin 2.7 g/dL (3.2-5.5); Bilirubin Total 0.7 mg/dL (0.3-1.2); Magnesium 1.8 mg/dL (1.8-2.5)
[2017-07-26] MEDS: Levofloxacin500mg IV 500 MG/100 ML BAG IV SCH (05:54)
[2017-07-26] MEDS: LIOTHYRONINE SOD 25 MCG TAB PO SCH (05:55)
[2017-07-26] MEDS ORDERED: MAGNESIUM SULFATE 1 gm IVPB 1 GM/100 ML BAG IV ONE (07:00)
[2017-07-26] MEDS: INSULIN -REGULAR HUMAN 50 UNIT/0.5 ML ML SQ SCH ×4 (07:30→21:53)
[2017-07-26] MEDS: GLIPIZIDE S.A. 5 MG TAB PO SCH ×2 (08:39→17:14)
[2017-07-26] MEDS: VANCOMYCIN 1.5 GM in NA CHLORIDE 0.9% 500 ML IVPB SCH (08:40)
[2017-07-26] MEDS: BUMETANIDE 1 MG TABLET PO SCH (10:36)
[2017-07-26] MEDS: MAGNESIUM OXIDE 400 MG TAB PO SCH ×2 (10:36→21:52)
[2017-07-26] MEDS: ASCORBIC ACID 500 MG TABLET PO SCH (10:36)
[2017-07-26] MEDS: FINASTERIDE 5 MG TAB PO SCH (10:37)
[2017-07-26] MEDS: CARVEDILOL 6.25 MG TAB PO SCH ×2 (10:37→21:52)
[2017-07-26] MEDS: LOSARTAN POTASSIUM 50 MG TABLET PO SCH (10:37)
[2017-07-26] MEDS: ZINC SULFATE 220 MG CAP PO SCH (10:37)
[2017-07-26] MEDS: TAMSULOSIN 0.4 MG SR CAP PO SCH (10:37)
[2017-07-26] MEDS: ASPIRIN 81 MG CHEWABLE TABLET PO SCH (10:38)
--- NOTE | 2017-07-26 12:49 | PN ---
Mr. Collins has lost about 14 pounds of body fluids since being here. I am going to recommend we stop t he intravenous Lasix, continue to give him the bumetanide. I believe he is approaching a point where he could be discharged for outpatient care. I think the main thing that got him in trouble was eati ng way too much sodiums. We have some reassurance that he is going to be able to reduce that. He co uld probably be discharged perhaps tomorrow. LORIN/FRANCY Voice ID: [id number] Report ID: [id number]
--- NOTE | 2017-07-26 14:22 | PN ---
Date of Progress Note: 07/26/2017 Subjective: The patient seen and examined, chart reviewed, and case discussed with RN. The patient is still having some redness and erythema of his right lower extremity. The patient states his breat brandi has improved. Review of Systems: Negative except as above. Medications: Reviewed. Physical Examination: Vital Signs: Temperature 98.2, heart rate 58, blood pressure 103/55, respirations 18, O2 of 96% on r oom air. General: Awake, alert, oriented x3. He is in no acute distress. Does appear somewhat depressed. CV: S1, S2. Regular rate and rhythm. Peripheral pulses present. Respiratory: Moving air better. No crackles. Improved. Gastrointestinal: Abdomen is soft, nontender, nondistended. Positive bowel sounds. No guarding or rigidity. Extremities: No clubbing, cyanosis, or edema. Musculoskeletal: Left BKA. Neurologic: Nonfocal. Laboratory Data: Sodium 134, potassium 4, chloride 93, CO2 of 34, BUN 34, creatinine 1.45, glucose 1 69, calcium 8.7, magnesium 1.8. WBC 7.3, H and H are 9.9 and 30.2, platelets 430. Blood cultures, n o growth to date. Assessment And Plan: A 72-year-old male with: 1.Right lower extremity cellulitis: Continue antibiotics. Erythema still present. Elevate and use ice. Blood cultures show no growth to date. 2.Ekloe-ns-iphqbke systolic congestive heart failure: Continue with congestive heart failure mally lopez repeat. We will follow up with chest x-ray. Dr. Ellis on board. 3.Coronary artery disease, status post coronary artery bypass graft: [place] artery, [place] heart wi thout angina. 4.Essential hypertension, stable. 5.Diabetes mellitus, type 2: Uncontrolled with long-term use of insulin with hyperglycemia. Hemogl obin A1c pending. Adjust insulin dose. 6.Hypercholesterolemia: Continue statin. 7.History of paroxysmal atrial fibrillation: Currently in sinus rhythm. The patient states he is n o longer taking amiodarone or Eliquis. 8.Gastrointestinal and deep venous thrombosis prophylaxis addressed. Plan: Continue IV antibiotics. Likely discharge in next 24 to 48 hours once continues to improve. SA/MODL Voice ID: [id number] Report ID: [id number]
[2017-07-26] MEDS: ENOXAPARIN 30 MG/0.3 ML SQ SCH (17:14)
[2017-07-26] MEDS: FAMOTIDINE 20 MG TAB PO SCH (21:52)
[2017-07-26] MEDS: ATORVASTATIN 40 MG TAB PO SCH (21:52)
[2017-07-26] MEDS: INSULIN DETEMIR 100 UNIT/1 ML INSULIN SQ SCH (21:53)
[2017-07-27 04:17] LABS: Absolute Lymphocytes (CBC) 1.3 K/uL (0.7-4.9); Absolute Neutrophil 4.7 K/uL (1.8-8.0); Basophils % 0.8 % (0-1.3); Eosinophils % 3.2 % (0-4.4); Hematocrit 29.8 % (39.6-49.0); Lymphocytes % 17.4 % (15.3-44.8); MCH 26.7 pg (27.0-35.0); MCV 82.4 fL (80-100); MPV 6.7 fL (7.6-11.3); Monocytes % 14.1 % (3.3-12.3); RBC Red Blood Cell Count 3.62 M/uL (4.33-5.43)
[2017-07-27 04:34] LABS: Albumin 2.7 g/dL (3.2-5.5); Bilirubin Total 0.7 mg/dL (0.3-1.2); Magnesium 2.1 mg/dL (1.8-2.5); Potassium 4.1 mEq/L (3.6-5.0); Protein, Total 6.2 g/dL (6.0-8.3)
[2017-07-27] MEDS: LIOTHYRONINE SOD 25 MCG TAB PO SCH (05:32)
[2017-07-27] MEDS: Levofloxacin500mg IV 500 MG/100 ML BAG IV SCH (05:32)
[2017-07-27] MEDS: BUMETANIDE 1 MG TABLET PO SCH (09:00)
[2017-07-27] MEDS: VANCOMYCIN 1.5 GM in NA CHLORIDE 0.9% 500 ML IVPB SCH (10:03)
[2017-07-27] MEDS: GLIPIZIDE S.A. 5 MG TAB PO SCH ×2 (10:04→16:30)
[2017-07-27] MEDS: FINASTERIDE 5 MG TAB PO SCH (10:04)
[2017-07-27] MEDS: ASPIRIN 81 MG CHEWABLE TABLET PO SCH (10:04)
[2017-07-27] MEDS: CARVEDILOL 6.25 MG TAB PO SCH ×2 (10:04→20:38)
[2017-07-27] MEDS: ASCORBIC ACID 500 MG TABLET PO SCH (10:04)
[2017-07-27] MEDS: MAGNESIUM OXIDE 400 MG TAB PO SCH ×2 (10:04→20:37)
[2017-07-27] MEDS: TAMSULOSIN 0.4 MG SR CAP PO SCH (10:04)
[2017-07-27] MEDS: ZINC SULFATE 220 MG CAP PO SCH (10:05)
[2017-07-27] MEDS: INSULIN -REGULAR HUMAN 50 UNIT/0.5 ML ML SQ SCH ×4 (10:05→20:39)
[2017-07-27] MEDS: LOSARTAN POTASSIUM 50 MG TABLET PO SCH (10:05)
[2017-07-27 10:19] LABS: A1c Component 1.19 mg/dL; Hemoglobin A1c 14.8 % (4-6.0)
[2017-07-27] MEDS: ENOXAPARIN 30 MG/0.3 ML SQ SCH (16:30)
--- NOTE | 2017-07-27 17:56 | P.PN ---
Date of Service: 07/27/17 Subjective: The patient seen and examined, chart reviewed, and case discussed with RN. Improved Erythema than before. Pt would like to have one more night in the hospital to ensure his is not getting worse. Review of Systems: Negative except as above. Medications: Reviewed. Physical Examination: Vital Signs: Temp Pulse Resp BP Pulse Ox 97.0 F 59 18 103/55 L 98 07/27/17 16:00 07/27/17 16:00 07/27/17 16:00 07/27/17 16:00 07/27/17 16:00 General: Awake, alert, oriented x3. He is in no acute distress. Does appear somewhat depressed. CV: S1, S2. Regular rate and rhythm. Peripheral pulses present. Respiratory: Moving air better. No crackles. Improved. Gastrointestinal: Abdomen is soft, nontender, nondistended. Positive bowel sounds. No guarding or rigidity. Extremities: No clubbing, cyanosis, or edema. Musculoskeletal: Left BKA. Neurologic: Nonfocal. Laboratory Data: Sodium 134, potassium 4, chloride 93, CO2 of 34, BUN 34, creatinine 1.45, glucose 169, calcium 8.7, magnesium 1.8. WBC 7.3, H and H are 9.9 and 30.2, platelets 430. Blood cultures, no growth to date. Assessment And Plan: A 72-year-old male with: 1.Right lower extremity cellulitis: - Continue antibiotics. Switch to PO. Observe for 24hrs for adequate response - Erythema still present but improved - Elevate and use ice. - Blood cultures show no growth to date. 2. Ozeqe-zl-pvfmcxm systolic congestive heart failure: - Continue with congestive heart failure guidelines - We will follow up with chest x-ray. - Cardiology consulted. Appreciate reccs 3. Coronary artery disease, status post coronary artery bypass graft: [place] artery, [place] heart without angina. 4. Essential hypertension, stable. 5. Diabetes mellitus, type 2: Uncontrolled with long-term use of insulin with hyperglycemia. Hemoglobin A1c pending. Adjust insulin dose. 6. Hypercholesterolemia: Continue statin. 7. History of paroxysmal atrial fibrillation: Currently in sinus rhythm. The patient states he is no longer taking amiodarone or Eliquis. 8. Gastrointestinal and deep venous thrombosis prophylaxis addressed. Plan: Continue PO antibiotics. Likely discharge in next 24 to 48 hours once continues to improve.
[2017-07-27] MEDS: ATORVASTATIN 40 MG TAB PO SCH (20:38)
[2017-07-27] MEDS: FAMOTIDINE 20 MG TAB PO SCH (20:38)
[2017-07-27] MEDS: INSULIN DETEMIR 100 UNIT/1 ML INSULIN SQ SCH (20:38)
[2017-07-28 04:43] VITALS: TEMP 97.8
[2017-07-28] MEDS: LIOTHYRONINE SOD 25 MCG TAB PO SCH (05:03)
[2017-07-28 05:17] VITALS: BMI 22.7
[2017-07-28] MEDS: INSULIN -REGULAR HUMAN 50 UNIT/0.5 ML ML SQ SCH (07:30)
[2017-07-28 08:14] VITALS: BP 110/65
[2017-07-28] MEDS ORDERED: levoFLOXacin 500 MG TAB PO SCH (09:00)
[2017-07-28] MEDS: ASCORBIC ACID 500 MG TABLET PO SCH (09:31)
[2017-07-28] MEDS: LOSARTAN POTASSIUM 50 MG TABLET PO SCH (09:31)
[2017-07-28] MEDS: GLIPIZIDE S.A. 5 MG TAB PO SCH (09:31)
[2017-07-28] MEDS: MAGNESIUM OXIDE 400 MG TAB PO SCH (09:31)
[2017-07-28] MEDS: BUMETANIDE 1 MG TABLET PO SCH (09:31)
[2017-07-28] MEDS: ZINC SULFATE 220 MG CAP PO SCH (09:31)
[2017-07-28] MEDS: ASPIRIN 81 MG CHEWABLE TABLET PO SCH (09:32)
[2017-07-28] MEDS: CARVEDILOL 6.25 MG TAB PO SCH (09:32)
[2017-07-28] MEDS: FINASTERIDE 5 MG TAB PO SCH (09:32)
[2017-07-28] MEDS: TAMSULOSIN 0.4 MG SR CAP PO SCH (09:32)
[2017-07-28 10:31] VITALS: O2SAT 93
--- NOTE | 2017-07-28 16:48 | P.DS ---
Admission Date: 07/23/17 Discharge Date: 07/28/17 Disposition: ROUTINE DISCHARGE Discharge Condition: GOOD Reason for Admission: acute on chronic systolic CHF Consultations: Cardiology Brief History of Present Illness: Mr Collins is a 72 years old male with history of DM II, CKD, CAD s/p CABG, right BKA, who came to ED complaining of progressive SOB for the last 3 weeks. He also noticed swelling in his right leg. Also he has several wound lesions with a redness area on his right leg. No history of fever or chills. The patient denied any chest pain at all. No cough or wheezing. In ER Lab work revealed normal WBC count, D-Dimer elevated. CTA chest shows no PE but signs of fluid overload. Hospital Course: Discharge Diagnosis: 1. Right lower extremity cellulitis 2. Hyvql-ah-pivrsqx systolic congestive heart failure 3. Coronary artery disease, status post coronary artery bypass graft: [place] artery, [place] heart without angina. 4. Essential hypertension, stable. 5. Diabetes mellitus, type 2: Uncontrolled with long-term use of insulin with hyperglycemia. 6. Hypercholesterolemia 7. History of paroxysmal atrial fibrillation Hospital Course Overall during the hospital stay patient remained stable The patient was initially to the hospital for right lower extremity cellulitis. Started on vancomycin IV. Blood culture and wound cultures were done. Blood culture and controllable negative patient was switched over to p.o. antibiotics upon improvement of his lower extremity cellulitis. Patient was switched to p.o. Levaquin here in the hospital. Patient also was found to have acute on chronic systolic congestive heart failure for which he was initially placed on IV Lasix which improved his symptoms markedly. Cardiology was consulted who agreed with the plan. Cardiology recommended patient to be on a 2 g sodium diet along with fluid restriction as well while here in the hospital and discharged. Patient was then switched over to p.o. Lasix once adequate diuresis was achieved. Patient was asked to follow up with cardiology outpatient in about 1-2 weeks post discharge and was asked to continue taking the medication as prescribed. Other chronic conditions remained stable while here in the hospital. Vital Signs/Physical Exam: Temp Pulse Resp BP Pulse Ox 97.8 F 68 18 110/65 97 07/28/17 08:00 07/28/17 09:32 07/28/17 08:00 07/28/17 09:32 07/28/17 08:00 General: Alert, In no apparent distress HEENT: Atraumatic, PERRLA, EOMI Neck: Supple, JVD not distended Respiratory: Clear to auscultation bilaterally, Normal air movement Cardiovascular: Regular rate/rhythm, Normal S1 S2 Gastrointestinal: Normal bowel sounds, No tenderness Musculoskeletal: No tenderness Integumentary: No rashes Neurological: Normal speech, Normal tone, Normal affect Lymphatics: No axilla or inguinal lymphadenopathy Laboratory Data at Discharge: WBC 7.3 K/uL (4.3-10.9) 07/27/17 03:50 Hgb 9.7 g/dL (13.6-17.9) L 07/27/17 03:50 Hct 29.8 % (39.6-49.0) L 07/27/17 03:50 Plt Count 407 K/uL (152-406) H 07/27/17 03:50 PT 13.8 SECONDS (9.5-12.5) H 07/23/17 17:33 INR 1.17 07/23/17 17:33 APTT 31.8 SECONDS (24.3-36.9) 07/23/17 17:33 Sodium 136 mEq/L (135-145) 07/27/17 03:50 Potassium 4.1 mEq/L (3.6-5.0) 07/27/17 03:50 BUN 37 mg/dL (6-20) H 07/27/17 03:50 Creatinine 1.48 mg/dL (0.61-1.24) H 07/27/17 03:50 Glucose 220 mg/dL (65-120) H 07/27/17 03:50 Magnesium 2.1 mg/dL (1.8-2.5) 07/27/17 03:50 Total Bilirubin 0.7 mg/dL (0.3-1.2) 07/27/17 03:50 AST 16 IU/L (10-42) 07/27/17 03:50 ALT 14 IU/L (10-60) 07/27/17 03:50 Alkaline Phosphatase 86 IU/L (42-121) 07/27/17 03:50 B-Natriuretic Peptide 1745 pg/ml (<=100) H 07/23/17 17:33 Amylase 44 U/L (28-100) 07/23/17 17:33 Lipase 31 U/L (22-51) 07/23/17 17:33 Home Medications: Aspirin [Bello Chewable Aspirin] 1 tab PO DAILY 05/31/15 Losartan Potassium [Cozaar*] 50 mg PO DAILY #30 tablet 07/10/15 Tamsulosin HCl [Flomax] 0.4 mg PO DAILY #30 cap.er.24h 07/10/15 Ascorbic Acid [Vitamin C*] 1,000 mg PO DAILY 10/09/16 Carvedilol [Coreg*] 6.25 mg PO BID 10/09/16 Finasteride [Proscar*] 5 mg PO DAILY 10/09/16 Glipizide [Glipizide Xl] 10 mg PO BID 10/09/16 Metformin ER [Glucophage ER*] 500 mg PO BID 10/09/16 Zinc Sulfate [Zinc Sulfate*] 220 mg PO DAILY 10/09/16 Atorvastatin Calcium [Lipitor] 40 mg PO BEDTIME 12/07/16 Bumetanide 1 tab PO DAILY 12/07/16 Famotidine [Pepcid*] 1 tab PO BEDTIME 12/07/16 Liothyronine Sodium [Cytomel] 1 tab PO [id number] 12/07/16 Magnesium Oxide [Mag 0X*] 500 tab PO BID 12/07/16 Levofloxacin [Levaquin*] 500 mg PO DAILY #10 tab 07/28/17 New Medications: Levofloxacin [Levaquin*] 500 mg PO DAILY #10 tab Patient Discharge Instructions: Please f/u with Dr Greene in 1 to 2 days post discharge. Please f/u with Dr Kelley in 1 to 2 days post discharge. New medication. Levaquin 500mg Daily for 10 days Diet: Regular Activity: Ad joao Followup: Haresh Kelley MD [ACTIVE - CAN ADMIT] - 1 Week (call to schedule appointment) Harry Greene MD [Primary Care Provider] - 1 Week (call to schedule appoinment)
--- NOTE | 2017-07-29 07:01 | PN ---
Date of Progress Note: 07/27/2017 History Of Present Illness: Mr. Collins is a 72-year-old who is a patient of mine, has had coronary art livan disease, status post CABG. He has peripheral vascular disease, status post left BKA. He came in with congestive heart failure. He has been grieving over the of his . He has been eating inappropriately with excessive salt intake, came in with congestive heart failure, has been seen by Dr. Ellis on the July 25 and the July 26. I saw him on July 27 here. Diuresed well. Lost approximat reynaldo 16 pounds since he has been admitted. We will continue present regimen. Mr. Collins wishes to stay 1 more day before going home and we will concur with that. Continue present regimen. The case was discussed with Dr. Parker. He can go home tomorrow. I would like to see him in the office in the nex t 2 weeks. He was instructed on salt intake control and he is very aware of his diet. JAVIER/FRANCY Voice ID: [id number] Report ID: [id number]
== END 2017-07-28 11:02 | disposition home or self-care (01) | DRG 602 ==
LOC: ER 17:13 → ERHOLD 21:42 → 4TH 21:50
PROVIDERS: ADMIT Internal Medicine; ATTEND Internal Medicine
DX: L03.115 Cellulitis of right lower limb (principal); I50.23 Acute on chronic systolic (congestive) heart failure; E78.00 Pure hypercholesterolemia, unspecified; I48.0 Paroxysmal atrial fibrillation; Z89.512 Acquired absence of left leg below knee; E03.9 Hypothyroidism, unspecified; I11.0 Hypertensive heart disease with heart failure; I25.10 Atherosclerotic heart disease of native coronary artery without angina pectoris; E11.65 Type 2 diabetes mellitus with hyperglycemia; Z95.1 Presence of aortocoronary bypass graft; Z79.82 Long term (current) use of aspirin
CPT/HCPCS: 36415; 71045; 71275; 80048; 80053; 80076; 80202; 82150; 82550; 82962; 83036; 83690; 83735; 83880; 84484; 85025; 85379; 85610; 85730; 87040; 93005; 93971; 94760; 96374; 99285; J1650; J3475; Q9967

== ENCOUNTER 2017-08-03 08:46 | Observation (INO) | payer BC ==
[2017-08-03 09:36] LABS: Absolute Lymphocytes (CBC) 0.8 K/uL (0.7-4.9); Absolute Neutrophil 4.5 K/uL (1.8-8.0); Basophils % 0.6 % (0-1.3); Hematocrit 28.2 % (39.6-49.0); MCH 26.3 pg (27.0-35.0); MCV 80.9 fL (80-100); MPV 7.1 fL (7.6-11.3); RBC Red Blood Cell Count 3.49 M/uL (4.33-5.43)
[2017-08-03 09:40] LABS: Protime INR 1.32
[2017-08-03 09:47] LABS: Potassium 4.2 mEq/L (3.6-5.0)
[2017-08-03 09:53] LABS: Albumin 2.9 g/dL (3.2-5.5); Bilirubin Direct 0.2 mg/dL (0-0.2); Bilirubin Total 0.8 mg/dL (0.3-1.2); Magnesium 2.3 mg/dL (1.8-2.5)
[2017-08-03 09:55] LABS: CKMB Creatine Kinase MB 4.8 ng/ml (0.3-4.0)
[2017-08-03] MEDS ORDERED: FUROSEMIDE 20 MG/ 2ML VIAL ONE ×2 (09:55→11:20)
[2017-08-03] MEDS ORDERED: PANTOPRAZOLE 40 MG INJ ONE (10:00)
--- NOTE | 2017-08-03 10:38 | RAD REPORT ---
EXAM DESCRIPTION: Marisol Single View08/03/2017 10:00 am CLINICAL HISTORY: Chest pain COMPARISON: July 23, 2017 FINDINGS: An opacity overlying the mid to lower lateral right hemithorax is without significant hernandez ge compatible with a small to moderate loculated pleural effusion which extends into the fissure. A small left pleural effusion is seen. The lungs appear clear of acute infiltrate The heart remains enlarged. Postsurgical changes involve the chest
--- NOTE | 2017-08-03 10:44 | EDPHYS ---
Physician Documentation [facility] Name: Navjot Collins Age: 72 yrs Sex: Male : 1945 Arrival Date: 08/03/2017 Time: 08:49 Bed 5 Private MD: ED Physician Davon Arredondo HPI: 08/03 09:00 This 72 yrs old Male presents to ER via EMS with complaints of Shortness Of laila Breath. 09:00 The patient has shortness of breath at rest, that woke him/her from sleep. Onset: The laila symptoms/episode began/occurred 2 day(s) ago. Duration: The symptoms are continuous, and are steadily getting worse. The patient's shortness of breath is aggravated by supine position, is alleviated by sitting up, application of supplemental oxygen. Associated signs and symptoms: The patient has no apparent associated signs or symptoms. Severity of symptoms: At their worst the symptoms were mild in the emergency department the symptoms are unchanged. The patient has experienced similar episodes in the past, a few times. Historical: - Allergies: 08:50 Codeine; sg 08:50 Demerol; sg 08:50 fedrazil; sg 08:50 Vicodin; sg - PMHx: 08:50 CHF; Diabetes - NIDDM; HTN; sg - PSHx: 08:50 5 vessel bypass; left lower leg amputation; sg - Immunization history:: Adult Immunizations up to date. - Social history:: Smoking status: Patient/guardian denies using tobacco. ROS: 09:01 Constitutional: Negative for fever, chills, and weight loss, Eyes: Negative for injury, laila pain, redness, and discharge, ENT: Negative for injury, pain, and discharge, Neck: Negative for injury, pain, and swelling, Cardiovascular: Negative for chest pain, palpitations, and edema, Abdomen/GI: Negative for abdominal pain, nausea, vomiting, diarrhea, and constipation, Back: Negative for injury and pain, : Negative for injury, bleeding, discharge, and swelling, MS/Extremity: Negative for injury and deformity, Neuro: Negative for headache, weakness, numbness, tingling, and seizure, Psych: Negative for depression, anxiety, suicide ideation, homicidal ideation, and hallucinations, Allergy/Immunology: Negative for hives, rash, and allergies, Endocrine: Negative for neck swelling, polydipsia, polyuria, polyphagia, and marked weight changes, Hematologic/Lymphatic: Negative for swollen nodes, abnormal bleeding, and unusual bruising. 09:01 Respiratory: Positive for dyspnea on exertion, orthopnea, shortness of breath. 09:01 MS/extremity: Positive for left bka. 09:01 Skin: Positive for pallor. Exam: 09: Constitutional: This is a well developed, well nourished patient who is awake, alert, laila and in no acute distress. Head/Face: Normocephalic, atraumatic. Eyes: Pupils equal round and reactive to light, extra-ocular motions intact. Lids and lashes normal. Conjunctiva and sclera are non-icteric and not injected. Cornea within normal limits. Periorbital areas with no swelling, redness, or edema. ENT: Nares patent. No nasal discharge, no septal abnormalities noted. Tympanic membranes are normal and external auditory canals are clear. Oropharynx with no redness, swelling, or masses, exudates, or evidence of obstruction, uvula midline. Mucous membranes moist. Neck: Trachea midline, no thyromegaly or masses palpated, and no cervical lymphadenopathy. Supple, full range of motion without nuchal rigidity, or vertebral point tenderness. No Meningismus. Chest/axilla: Normal chest wall appearance and motion. Nontender with no deformity. No lesions are appreciated. Cardiovascular: Regular rate and rhythm with a normal S1 and S2. No gallops, murmurs, or rubs. Normal PMI, no JVD. No pulse deficits. Abdomen/GI: Soft, non-tender, with normal bowel sounds. No distension or tympany. No guarding or rebound. No evidence of tenderness throughout. Back: No spinal tenderness. No costovertebral tenderness. Full range of motion. Male : Normal genitalia with no discharge or lesions. MS/ Extremity: Pulses equal, no cyanosis. Neurovascular intact. Full, normal range of motion. Neuro: Awake and alert, GCS 15, oriented to person, place, time, and situation. Cranial nerves II-XII grossly intact. Motor strength 5/5 in all extremities. Sensory grossly intact. Cerebellar exam normal. Normal gait. Psych: Awake, alert, with orientation to person, place and time. Behavior, mood, and affect are within normal limits. 09:01 Respiratory: the patient does not display signs of respiratory distress, Respirations: normal, Breath sounds: rales, that are mild, are located in both bases. Vital Signs: 08:51 BP 114 / 60; Pulse 66 MON; Resp 18 S; Temp 97.9; Pulse Ox 100% on R/A; sg 08:52 Weight 80.29 kg; Height 6 ft. 2 in. (187.96 cm); sv 09:56 BP 101 / 50; Pulse 65 MON; Resp 17 S; Pulse Ox 100% on R/A; Pain 0/10; sg 12:51 BP 106 / 72; Pulse 63; Resp 17; Temp 97.9; Pulse Ox 100% on R/A; Pain 0/10; sg 08:52 Body Mass Index 22.73 (80.29 kg, 187.96 cm) sv MDM: 08:55 Patient medically screened. [facility] 09:03 Data reviewed: vital signs, nurses notes, lab test result(s), EKG, radiologic studies, laila plain films. 08/03 08:59 Order name: Basic Metabolic Panel [facility] 08/03 08:59 Order name: BNP; Complete Time: 10:34 [facility] 08/03 08:59 Order name: CBC with Diff; Complete Time: 10:08 [facility] 08/03 08:59 Order name: Ckmb; Complete Time: 10:08 [facility] 08/03 08:59 Order name: CPK; Complete Time: 10:08 [facility] 08/03 08:59 Order name: LFT's; Complete Time: 10:08 [facility] 08/03 08:59 Order name: Magnesium; Complete Time: 10:08 [facility] 08/03 08:59 Order name: PT-INR; Complete Time: 10:08 [facility] 08/03 08:59 Order name: Ptt, Activated; Complete Time: 10:08 [facility] 08/03 08:59 Order name: Troponin (emerg Dept Use Only); Complete Time: 10:08 [facility] 08/03 08:59 Order name: Lipase; Complete Time: 10:08 [facility] 08/03 09:00 Order name: Basic Metabolic Panel; Complete Time: 10:08 EDMS 08/03 09:10 Order name: Type And Screen; Complete Time: 10:34 [facility] 08/03 11:55 Order name: Urine Dipstick--Ancillary (enter results) bd 08/03 08:59 Order name: XRAY Chest (1 view); Complete Time: 11:31 [facility] 08/03 08:59 Order name: EKG; Complete Time: 09:00 [facility] 08/03 08:59 Order name: Cardiac monitoring; Complete Time: 09: [facility] 08/03 08:59 Order name: EKG - Nurse/Tech; Complete Time: 09:22 [facility] 08/03 08:59 Order name: IV Saline Lock; Complete Time: 09: [facility] 08/03 08:59 Order name: Labs collected and sent; Complete Time: : [facility] 08/03 08:59 Order name: O2 Per Protocol; Complete Time: 09: [facility] 08/03 10:52 Order name: CONS Physician Consult EDNM 08/03 11:26 Order name: Diet Ada 1800 Angelito; Complete Time: 11:27 sg 08/03 11:55 Order name: Urine Culture [facility] 08/03 08:59 Order name: O2 Sat Monitoring; Complete Time: 09:22 [facility] Administered Medications: 10:05 Drug: ProTONIX 40 mg Route: IVP; Site: right forearm; sg 11:00 Follow up: Response: No adverse reaction sg 10:05 Drug: Lasix 20 mg Route: IVP; Site: right forearm; sg 11:57 Follow up: Urine output 500 ml; Response: No adverse reaction sg 11:15 Drug: Lasix 20 mg Route: IVP; Site: right forearm; sg 11:58 Follow up: Response: No adverse reaction sg 11:25 Drug: Aspirin 81 mg Route: PO; sg 11:57 Follow up: Response: No adverse reaction sg 11:26 Drug: Lovenox 70 mg Route: Sub-Q; Site: right lower abdomen; sg 11:58 Follow up: Response: No adverse reaction sg 12:24 Drug: Rocephin - (cefTRIAXone) 1 grams Route: IVPB; Infused Over: 30 mins; Site: right sg wrist; 13:00 Follow up: Response: No adverse reaction; IV Status: Completed infusion; abx sg administered slow IV push as per hospital pharmacy protocol Point of Care Testing: Blood Glucose: 09:00 Blood Glucose: 221 mg/dL; sg 12:37 Blood Glucose: 201 mg/dL; sg Ranges: Critical Glucose Levels:Adult <50 mg/dl or >400 mg/dl <40 mg/dl or >180 mg/dl Disposition: 08/03/17 10:43 Hospitalization ordered by Katlyn Praker for Inpatient Admission. Preliminary diagnosis are Dyspnea, Anemia, unspecified, Cardiomegaly, Unspecified combined systolic (congestive) and diastolic (congestive) heart failure. - Bed requested for Telemetry/MedSurg (Inpatient). - Status is Inpatient Admission. aa5 - Condition is Fair. - Problem is new. - Symptoms have improved. UTI on Admission? No Signatures: Dispatcher [employer] EDMS Ariadna Huntley Blayne Scott RN RN Davon Arredondo MD MD cha Calderon, Audri, RN RN aa5 Maksim Pierce PA PA [id number] Corrections: (The following items were deleted from the chart) 12:18 10:43 Hospitalization Ordered by Katlyn Parker MD for Inpatient Admission. Preliminary bd diagnosis is Dyspnea; Anemia, unspecified; Cardiomegaly; Unspecified combined systolic (congestive) and diastolic (congestive) heart failure. Bed requested for Telemetry/MedSurg (Inpatient). Status is Inpatient Admission. Condition is Fair. Problem is new. Symptoms have improved. UTI on Admission? No. [facility] 13:15 12:18 08/03/2017 10:43 Hospitalization Ordered by Katlyn Parker MD for Inpatient aa5 Admission. Preliminary diagnosis is Dyspnea; Anemia, unspecified; Cardiomegaly; Unspecified combined systolic (congestive) and diastolic (congestive) heart failure. Bed requested for Telemetry/MedSurg (Inpatient). Status is Inpatient Admission. Condition is Fair. Problem is new. Symptoms have improved. UTI on Admission? No. bd
--- NOTE | 2017-08-03 10:44 | ER ---
Nurse's Notes [facility] Name: Navjot Collins Age: 72 yrs Sex: Male : 1945 Arrival Date: 08/03/2017 Time: 08:49 Bed 5 Private MD: Diagnosis: Dyspnea;Anemia, unspecified;Cardiomegaly;Unspecified combined systolic (congestive) and diastolic (congestive) heart failure Presentation: 08/03 08:51 Presenting complaint: EMS states: pt reports shortness of breath that started yesterday sg and is worsened by being in the supine position, feels better sitting upright, pt has a hx of CHF, HTN, Diabetes, pt EMS states that VSS in transport and upon arrival, pt denies CP, Fever, NVD. Transition of care: patient was not received from another setting of care. Onset of symptoms was August 03, 2017. Initial Sepsis Screen: Does the patient meet any 2 criteria? No. Patient's initial sepsis screen is negative. Does the patient have a suspected source of infection? No. Patient's initial sepsis screen is negative. Care prior to arrival: None. 08:51 Method Of Arrival: EMS: [facility] sg 08:51 Acuity: ZENAIDA 3 sg Triage Assessment: 08:50 General: Appears in no apparent distress. comfortable, well groomed, well developed, sg well nourished, Behavior is calm, cooperative, appropriate for age. Pain: Denies pain. EENT: No signs and/or symptoms were reported regarding the EENT system. Nares are clear bilaterally Throat is pink. Neuro: Level of Consciousness is awake, alert, obeys commands, Oriented to person, place, time, Speech is normal, Facial symmetry appears normal. Cardiovascular: Heart tones S1 S2 present Capillary refill is brisk in bilateral fingers Patient's skin is warm and dry. Chest pain is denied. Respiratory: Reports shortness of breath at rest in supine position, but improves if sitting upright Onset: The symptoms/episode began/occurred yesterday, the patient has mild shortness of breath. GI: No signs and/or symptoms were reported involving the gastrointestinal system. : No signs and/or symptoms were reported regarding the genitourinary system. Derm: Skin is pink, warm \T\ dry. Musculoskeletal: No signs and/or symptoms reported regarding the musculoskeletal system. Historical: - Allergies: 08:50 Codeine; sg 08:50 Demerol; sg 08:50 fedrazil; sg 08:50 Vicodin; sg - PMHx: 08:50 CHF; Diabetes - NIDDM; HTN; sg - PSHx: 08:50 5 vessel bypass; left lower leg amputation; sg - Immunization history:: Adult Immunizations up to date. - Social history:: Smoking status: Patient/guardian denies using tobacco. Screenin:00 Abuse screen: Denies threats or abuse. Denies injuries from another. Nutritional sg screening: No deficits noted. Tuberculosis screening: No symptoms or risk factors identified. Never had TB. Fall Risk None identified. Assessment: 09:29 General: Appears in no apparent distress. comfortable, well groomed, well developed, sg well nourished, Behavior is calm, cooperative, appropriate for age. Pain: Denies pain. Neuro: Level of Consciousness is awake, alert, obeys commands, Oriented to person, place, time, Speech is normal, Facial symmetry appears normal, Pupils are PERRLA. Cardiovascular: Heart tones S1 S2 present Capillary refill is brisk in bilateral fingers Patient's skin is warm and dry. Chest pain is denied. Cardiovascular: Rhythm is sinus rhythm. Respiratory: Airway is patent Respiratory effort is even, unlabored, Breath sounds are clear. GI: No signs and/or symptoms were reported involving the gastrointestinal system. : No signs and/or symptoms were reported regarding the genitourinary system. EENT: No signs and/or symptoms were reported regarding the EENT system. Derm: Skin is pink, warm \T\ dry. redness noted to the RLE, no swelling noted. Musculoskeletal: Circulation, motion, and sensation intact. Range of motion: intact in all extremities, Swelling absent L BKA. 11:30 Reassessment: Patient appears in no apparent distress at this time. Patient and/or sg family updated on plan of care and expected duration. Pain level reassessed. Patient is alert, oriented x 3, equal unlabored respirations, skin warm/dry/pink. Patient states feeling better. Respiratory: Airway is patent Respiratory effort is even, unlabored, Breath sounds are clear Denies cough, shortness of breath. 12:50 Reassessment: Patient appears in no apparent distress at this time. Patient and/or sg family updated on plan of care and expected duration. Pain level reassessed. Patient is alert, oriented x 3, equal unlabored respirations, skin warm/dry/pink. Report called to Yanira ROQUE. Vital Signs: 08:51 BP 114 / 60; Pulse 66 MON; Resp 18 S; Temp 97.9; Pulse Ox 100% on R/A; sg 08:52 Weight 80.29 kg; Height 6 ft. 2 in. (187.96 cm); sv 09:56 BP 101 / 50; Pulse 65 MON; Resp 17 S; Pulse Ox 100% on R/A; Pain 0/10; sg 12:51 BP 106 / 72; Pulse 63; Resp 17; Temp 97.9; Pulse Ox 100% on R/A; Pain 0/10; sg 08:52 Body Mass Index 22.73 (80.29 kg, 187.96 cm) sv ED Course: 08:45 First set of blood cultures drawn by me. Missed attempt(s): 18 gauge in right forearm. sg Bleeding controlled, band aid applied, catheter tip intact. 08:49 Patient arrived in ED. sg 08:50 Arm band placed on. sg 08:53 Triage completed. sg 08:55 Davon Arredondo MD is Attending Physician. laila 09:00 Initial lab(s) drawn, by me, sent to lab. Second set of blood cultures drawn by me. sg Inserted saline lock: 20 gauge in right forearm, using aseptic technique. Blood collected. 09:26 Blayne Oreilly, RN is Primary Nurse. sg 09:56 XRAY Chest (1 view) In Process Unspecified. EDMS 09:57 X-ray completed. Portable x-ray completed in exam room. Patient tolerated procedure jb2 well. 10:00 Patient has correct armband on for positive identification. Bed in low position. Call sg light in reach. Side rails up X2. electronic device monitor on. Pulse ox on. NIBP on. Warm blanket given. Verbal reassurance given. Head of bed elevated. 10:41 Katlyn Parker MD is Hospitalizing Provider. [facility] 12:37 Diet: Patient given a diabetic meal tray. Tolerated well. sg 13:10 No provider procedures requiring assistance completed. Patient admitted, IV remains in sg place. intact, No redness/swelling at site. Administered Medications: 10:05 Drug: ProTONIX 40 mg Route: IVP; Site: right forearm; sg 11:00 Follow up: Response: No adverse reaction sg 10:05 Drug: Lasix 20 mg Route: IVP; Site: right forearm; sg 11:57 Follow up: Urine output 500 ml; Response: No adverse reaction sg 11:15 Drug: Lasix 20 mg Route: IVP; Site: right forearm; sg 11:58 Follow up: Response: No adverse reaction sg 11:25 Drug: Aspirin 81 mg Route: PO; sg 11:57 Follow up: Response: No adverse reaction sg 11:26 Drug: Lovenox 70 mg Route: Sub-Q; Site: right lower abdomen; sg 11:58 Follow up: Response: No adverse reaction sg 12:24 Drug: Rocephin - (cefTRIAXone) 1 grams Route: IVPB; Infused Over: 30 mins; Site: right sg wrist; 13:00 Follow up: Response: No adverse reaction; IV Status: Completed infusion; abx sg administered slow IV push as per hospital pharmacy protocol Point of Care Testing: Blood Glucose: 09:00 Blood Glucose: 221 mg/dL; sg 12:37 Blood Glucose: 201 mg/dL; sg Ranges: Output: 11:57 Urine: 500ml; Total: 500ml. Outcome: 10:43 Decision to Hospitalize by Provider. laila 13:10 Admitted to Med/surg accompanied by tech, via wheelchair, with chart, Report called to lu Doyle RN 13:10 Condition: stable 13:10 Instructed on the need for admit, safety practices, Demonstrated understanding of instructions, pt escorted upstairs wearing personal clothing with belongings, eye glasses noted to be hanging on his shirt during transport to admit unit 13:15 Patient left the ED. aa5 Signatures: Dispatcher [employer] Yolie Duggan RN RN sv Gay, Steven, RN RN sg Anderson, Corey, MD MD cha Buechter, Jesse jb2 Calderon, Audri, RN RN aa5
[2017-08-03] MEDS ORDERED: ASPIRIN 81 MG CHEWABLE TABLET ONE (11:19)
[2017-08-03] MEDS ORDERED: ENOXAPARIN 80 MG/0.8 ML SQ ONE (11:20)
--- NOTE | 2017-08-03 11:47 | P.HP ---
Certification for Inpatient Patient admitted to: Observation With expected LOS: <2 Midnights Patient will require the following post-hospital care: None Practitioner: I am a practitioner with admitting privileges, knowledge of patient current condition, hospital course, and medical plan of care. Services: Services provided to patient in accordance with Admission requirements found in Title 42 Section 412.3 of the Code of Federal Regulations Patient History Date of Service: 08/03/17 Reason for admission: Shortness Of breath History of Present Illness: This is a 72 y/o M who presented to ED with shortness of breath along with orthopnea for the past couple of days. Has history of CAD with Bypass surgery and congestive heart failure. Stated that he has been having trouble sleeping at night due to the shortness of breath. Called Dr. Kelley's office today and was instructed to come to ED for further evaluation. Patient resting comfortably in exam room now. Currently without shortness of breath. Denies chest pain. Allergies meperidine [From Demerol] Allergy (Verified 07/23/17 23:55) Unknown pseudoephedrine Allergy (Verified 07/23/17 23:55) Hives acetaminophen [From Vicodin] Adverse Reaction (Verified 07/23/17 23:55) Nausea/Vomiting codeine Adverse Reaction (Verified 07/23/17 23:55) Nausea/Vomiting hydrocodone bitartrate [From Vicodin] Adverse Reaction (Verified 07/23/17 23:55) Nausea/Vomiting fedrazil Allergy (Mild, Uncoded 07/24/17 03:46) Unknown Home medications list reviewed: Yes Home Medications: Aspirin [Bello Chewable Aspirin] 1 tab PO DAILY 05/31/15 Losartan Potassium [Cozaar*] 50 mg PO DAILY #30 tablet 07/10/15 Tamsulosin HCl [Flomax] 0.4 mg PO DAILY #30 cap.er.24h 07/10/15 Ascorbic Acid [Vitamin C*] 1,000 mg PO DAILY 10/09/16 Carvedilol [Coreg*] 6.25 mg PO BID 10/09/16 Finasteride [Proscar*] 5 mg PO DAILY 10/09/16 Glipizide [Glipizide Xl] 10 mg PO BID 10/09/16 Metformin ER [Glucophage ER*] 500 mg PO BID 10/09/16 Zinc Sulfate [Zinc Sulfate*] 220 mg PO DAILY 10/09/16 Atorvastatin Calcium [Lipitor] 40 mg PO BEDTIME 12/07/16 Bumetanide 1 tab PO DAILY 12/07/16 Famotidine [Pepcid*] 1 tab PO BEDTIME 12/07/16 Liothyronine Sodium [Cytomel] 1 tab PO [id number] 12/07/16 Magnesium Oxide [Mag 0X*] 500 tab PO BID 12/07/16 Levofloxacin [Levaquin*] 500 mg PO DAILY #10 tab 07/28/17 - Past Medical/Surgical History Diabetic: Yes -: high cholesterol -: HTN -: CAD -: chronic systolic CHF Past Surgical History: Reviewed- Non-Contributory -: carotid stent -: CABG -: BKA left leg -: Prostate surgery - Family History Father -: Heart disease Mother -: Lung disease - Social History Smoking Status: Never smoker Alcohol use: No CD- Drugs: No Caffeine use: No Review of Systems General: Unremarkable Eyes: Unremarkable ENT: Unremarkable Respiratory: Shortness of Breath, SOB with Excertion, As per HPI Cardiovascular: Orthopnea Gastrointestinal: Unremarkable Genitourinary: Unremarkable Musculoskeletal: Unremarkable Integumentary: Unremarkable Neurological: Unremarkable Lymphatics: Unremarkable Physical Examination - Vital Signs Temperature: 97.9 F Blood Pressure: 114/60 Pulse: 66 Respirations: 18 Pulse Ox (%): 100 - Physical Exam General: Alert, In no apparent distress, Oriented x3, Cooperative HEENT: Atraumatic, Normocephalic, PERRLA, Mucous membr. moist/pink, EOMI Neck: Supple, 2+ carotid pulse no bruit, Without JVD or thyroid abnormality Respiratory: Clear to auscultation bilaterally, Normal air movement Cardiovascular: No edema, Normal pulses, No gallops, Systolic murmur Capillary refill: <2 Seconds Gastrointestinal: Normal bowel sounds, Soft and benign, Non-distended, No ascites, No tenderness, No masses, No rebound, No guarding Musculoskeletal: No swelling, No erythema, No tenderness, No warmth Integumentary: No rashes Neurological: Normal speech, Normal strength at 5/5 x4 extr, Normal tone, Sensation intact, Cranial nerves 3-12 intact, Normal reflexes 2+, Normal affect Lymphatics: No axilla or inguinal lymphadenopathy - Studies Laboratory Data (last 24 hrs) 08/03/17 09:00: PT 15.6 H, INR 1.32, APTT 29.6 08/03/17 09:00: WBC 6.4, Hgb 9.2 L, Hct 28.2 L, Plt Count 319 D 08/03/17 09:00: B-Natriuretic Peptide 1543 H 08/03/17 09:00: Sodium 133 L, Potassium 4.2, BUN 44 H, Creatinine 1.44 H, Glucose 211 H, Magnesium 2.3, Total Bilirubin 0.8, AST 20, ALT 20, Alkaline Phosphatase 80, Lipase 26 Troponin 0.04 Assessment and Plan - Problems (Diagnosis) (1) Anemia Current Visit: Yes Status: Chronic Plan: To monitor H/H Qualifiers: Anemia type: iron deficiency Iron deficiency anemia type: unspecified iron deficiency Qualified Code(s): D50.9 - Iron deficiency anemia, unspecified (2) Hx of CABG Current Visit: No Status: Acute (3) Hypertension Onset Date: 06/18/15 Current Visit: No Status: Chronic Qualifiers: Hypertension type: essential hypertension Qualified Code(s): I10 - Essential (primary) hypertension (4) Hyponatremia Onset Date: 12/08/16 Current Visit: Yes Status: Acute Plan: Hyponatremia probably secondary to cardiomegaly and heart failure. Will give diuretics and monitor sodium levels (5) CHF (congestive heart failure) Onset Date: 12/08/16 Current Visit: Yes Status: Chronic Plan: Echocardiogram will be done. Diuretics will be given to patient. Monitor SPO2 and patients respiratory status Qualifiers: Qualified Code(s): I50.22 - Chronic systolic (congestive) heart failure (6) Diabetes type 2, controlled Onset Date: 12/08/16 Current Visit: No Status: Chronic Plan: to monitor glucose closely and adjust with home medications and insulin if need be Qualifiers: Diabetes mellitus detention insulin use: with detention use Diabetes mellitus complication status: without complication Qualified Code(s): E11.9 - Type 2 diabetes mellitus without complications; Z79.4 - correction (current) use of insulin (7) Renal insufficiency Onset Date: 12/08/16 Current Visit: Yes Status: Chronic Plan: monitor creatinine and BUN with daily BMP Discharge Plan: Home Plan to discharge in: 24 Hours - Advance Directives Does patient have a Living Will: No Does patient have a Durable POA for Healthcare: No - Code Status/Comfort Care Code Status Assessed: Yes (Blayne Oreilly RN and I both in room and spoke to patient about code status.) Code Status: Do Not Resuscitate
[2017-08-03] MEDS ORDERED: GLUCAGON 1 MG/VIAL IM PRN ×2 (11:49→13:40)
[2017-08-03] MEDS ORDERED: D50W 25 GM/50 ML SYRINGE IV PRN ×2 (11:49→13:40)
[2017-08-03] MEDS ORDERED: CEFTRIAXONE/SWI 1gm 1 GM/10 ML SYR ONE (12:05)
[2017-08-03] MEDS ORDERED: INSULIN -REGULAR HUMAN 50 UNIT/0.5 ML ML ONE (12:41)
[2017-08-03 13:26] LABS: Urine Blood 1+ (NEG); Urine Glucose NEGATIVE (NEG); Urine Protein NEGATIVE (NEG); Urine Specific Gravity <1.005 (1.005-1.030)
[2017-08-03] MEDS ORDERED: ALBUTEROL 2.5 MG/3 ML NEB SOL NEB PRN (13:40)
[2017-08-03] MEDS ORDERED: ONDANSETRON 4 MG/2 ML VIAL IV PRN (13:40)
[2017-08-03] MEDS ORDERED: IPRATROPIUM BROM 0.5MG/2.5ML NEB PRN (13:40)
[2017-08-03] MEDS ORDERED: ACETAMINOPHEN 500 MG TAB PO PRN (13:40)
--- NOTE | 2017-08-03 14:43 | EKG ---
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
[2017-08-03] MEDS: INSULIN -REGULAR HUMAN 50 UNIT/0.5 ML ML SQ SCH ×2 (16:30→21:00)
[2017-08-03] MEDS ORDERED: INSULIN -REGULAR HUMAN 50 UNIT/0.5 ML ML SQ SCH (16:30)
--- NOTE | 2017-08-03 16:59 | CON ---
History Of Present Illness: Mr. Collins is 72. He came to the hospital with more shortness of breath. He was in our hospital about 10 days ago. When he went home, he was free of any symptoms, but after being home about 2 days, he developed orthopnea and came to the hospital. When he was here last wee k, he was volume overloaded, underwent a diuresis with intravenous Lasix, went home, and tried to do a better job of controlling sodium. His medications when he went home where Levaquin, Pepcid, liothy ronine, bumetanide 1 mg, magnesium oxide, atorvastatin, glipizide, metformin, Proscar, zinc, Coreg 6. 25 b.i.d., tamsulosin, losartan, and aspirin. We do not have a very recent echocardiogram. I think, he went home, came to the hospital, and went home over the weekend. An echocardiogram from 2015 ifeanyi wed the ejection fraction was mildly depressed. He had a cardiac cath in the summer of 2016 and unde rwent bypass surgery after that. He has also had a left [id number] amputation for gangrene. He has underlying diabetes, congestive heart failure, coronary heart disease, and dyslipidemia. Physical Examination: General: He is alert, oriented, pleasant. Vital signs: 6 feet 2, 177 pounds. Lungs: Reveal sparse basilar crackles. Heart: Reveals a regular rate and rhythm. There is no significant murmur. There seems to be an S4 gallop. Abdomen: Soft. Extremities: He has a left [id number]-bgf-[id number] amputation on the right. There are lot of wounds to the s kin. There is mild redness of the skin and mild edema. The chest x-ray from today reveals mild interstitial pulmonary edema. Small left pleural effusion is seen. Impression: If the patient again has mild volume overload, I think we need to let him go home not ta loretta the 1 mg of bumetanide, either double the dose or given 80 mg of Lasix and he will continue to w ork with a low-sodium diet. I think we should do an echocardiogram to see if perhaps he needs a defi brillator or perhaps therapy with Entresto. Thank you very much for your kind referral of Mr. Collins. I will follow him with you. LORIN/FRANCY Voice ID: [id number] Report ID: [id number]
[2017-08-03] MEDS ORDERED: FUROSEMIDE 20 MG/ 2ML VIAL IV SCH (17:00)
--- NOTE | 2017-08-03 17:17 | ECHO ---
HEIGHT: 6 ft 2 in WEIGHT: 177 lb 0 oz DATE OF STUDY: 08/03/[address]: Cl Pierce 2-DIMENSIONAL: YES M.MODE: YES DOPPLER: YES COLOR FLOW: YES TDS: PORTABLE: DEFINITY: BUBBLE STUDY: DIAGNOSIS: SHORTNESS OF BREATH CARDIAC HISTORY: CATHERIZATION: NO SURGERY: YES PROSTHETIC VALVE: NO PACEMAKER: NO MEASUREMENTS (cm) DIASTOLIC (NORMALS) SYSTOLIC (NORMALS) IVSd (0.6-1.2) LA Diam (1.9-4.0) LVEF 45% LVIDd (3.5-5.7) LVIDs (2.0-3.5) %FS % LVPWd (0.6-1.2) Ao Diam (2.0-3.7) 2 DIMENSIONAL ASSESSMENT: RIGHT ATRIUM: DILATED LEFT ATRIUM: DILATED RIGHT VENTRICLE: NORMAL LEFT VENTRICLE: NORMAL TRICUSPID VALVE: NORMAL MITRAL VALVE: NORMAL PULMONIC VALVE: NORMAL AORTIC VALVE: NORMAL PERICARDIAL EFFUSION: NONE AORTIC ROOT: NORMAL LEFT VENTRICULAR WALL MOTION: PARADOXICAL SEPTAL MOTION. MILD GLOBAL HYPOKINESIS. DOPPLER/COLOR FLOW: MILD AORITC, MITRAL AND TRICUSPID REGURGITATION. MILD PULMONARY HYPERTENSION. ESTIMATED RIGHT VENTRICULAR SYSTOLIC PRESSURE 45 mmHg. COMMENTS: MILDLY DESPRESSED LEFT VENTRICULAR EJECTION FRACTION. DILATED LEFT AND RIGHT ATRIUM. MILD AORTIC, MITRAL AND TRICUSPID REGURGITATION. MILD PULMONARY HYPERTENSION. TECHNOLOGIST: REGGIE CEDENO
[2017-08-03] MEDS: FUROSEMIDE 40 MG/4 ML VIAL IV SCH (18:19)
[2017-08-03] MEDS: ENOXAPARIN 80 MG/0.8 ML SQ SCH (20:57)
[2017-08-03] MEDS: MAGNESIUM OXIDE 400 MG TAB PO SCH (20:58)
[2017-08-03] MEDS: METFORMIN ER 500 MG TAB PO SCH (20:59)
[2017-08-03] MEDS: CARVEDILOL 6.25 MG TAB PO SCH (20:59)
[2017-08-03] MEDS ORDERED: ATORVASTATIN 40 MG TAB PO SCH (21:00)
[2017-08-03] MEDS ORDERED: FAMOTIDINE 20 MG TAB PO SCH (21:00)
[2017-08-03 21:45] VITALS: O2SAT 96
[2017-08-04 04:42] LABS: Absolute Lymphocytes (CBC) 1.1 K/uL (0.7-4.9); Absolute Monocytes 0.9 K/uL (0.1-1.3); Absolute Neutrophil 3.4 K/uL (1.8-8.0); Basophils % 0.6 % (0-1.3); Eosinophils % 2.3 % (0-4.4); Hematocrit 27.6 % (39.6-49.0); Lymphocytes % 19.4 % (15.3-44.8); MCH 25.8 pg (27.0-35.0); MPV 7.2 fL (7.6-11.3); Monocytes % 16.8 % (3.3-12.3); RBC Red Blood Cell Count 3.41 M/uL (4.33-5.43)
[2017-08-04 05:06] VITALS: BMI 22.8
[2017-08-04] MEDS ORDERED: LIOTHYRONINE SOD 25 MCG TAB PO SCH (06:00)
[2017-08-04] MEDS: INSULIN -REGULAR HUMAN 50 UNIT/0.5 ML ML SQ SCH (07:30)
[2017-08-04 07:50] VITALS: BP 108/53; TEMP 99.3
[2017-08-04] MEDS ORDERED: LOSARTAN POTASSIUM 50 MG TABLET PO SCH (09:00)
[2017-08-04] MEDS ORDERED: CEFTRIAXONE/SWI 1gm 1 GM/10 ML SYR IV SCH (09:00)
[2017-08-04] MEDS ORDERED: ZINC SULFATE 220 MG CAP PO SCH (09:00)
[2017-08-04] MEDS ORDERED: ASPIRIN 81 MG CHEWABLE TABLET PO SCH ×2 (09:00)
[2017-08-04] MEDS ORDERED: TAMSULOSIN 0.4 MG SR CAP PO SCH (09:00)
[2017-08-04] MEDS ORDERED: FINASTERIDE 5 MG TAB PO SCH (09:00)
[2017-08-04] MEDS ORDERED: ASCORBIC ACID 500 MG TABLET PO SCH (09:00)
[2017-08-04] MEDS ORDERED: BUMETANIDE 1 MG TABLET PO SCH (09:00)
[2017-08-04] MEDS: ENOXAPARIN 80 MG/0.8 ML SQ SCH (09:44)
[2017-08-04] MEDS: METFORMIN ER 500 MG TAB PO SCH (09:46)
[2017-08-04] MEDS: MAGNESIUM OXIDE 400 MG TAB PO SCH (09:46)
[2017-08-04] MEDS: CARVEDILOL 6.25 MG TAB PO SCH (09:47)
[2017-08-04] MEDS: FUROSEMIDE 40 MG/4 ML VIAL IV SCH (09:47)
--- NOTE | 2017-08-04 15:14 | P.SSS ---
Patient History Date of Service: 08/04/17 Primary Care Provider: None Reason for admission: Shortness Of breath History of Present Illness: See HPI Allergies meperidine [From Demerol] Allergy (Verified 07/23/17 23:55) Unknown pseudoephedrine Allergy (Verified 07/23/17 23:55) Hives acetaminophen [From Vicodin] Adverse Reaction (Verified 07/23/17 23:55) Nausea/Vomiting codeine Adverse Reaction (Verified 07/23/17 23:55) Nausea/Vomiting hydrocodone bitartrate [From Vicodin] Adverse Reaction (Verified 07/23/17 23:55) Nausea/Vomiting fedrazil Allergy (Mild, Uncoded 07/24/17 03:46) Unknown Home Medications: Aspirin [Bello Chewable Aspirin] 1 tab PO DAILY 05/31/15 Losartan Potassium [Cozaar*] 50 mg PO DAILY #30 tablet 07/10/15 Tamsulosin HCl [Flomax] 0.4 mg PO DAILY #30 cap.er.24h 07/10/15 Ascorbic Acid [Vitamin C*] 1,000 mg PO DAILY 10/09/16 Carvedilol [Coreg*] 6.25 mg PO BID 10/09/16 Finasteride [Proscar*] 5 mg PO DAILY 10/09/16 Glipizide [Glipizide Xl] 10 mg PO BID 10/09/16 Metformin ER [Glucophage ER*] 500 mg PO BID 10/09/16 Zinc Sulfate [Zinc Sulfate*] 220 mg PO DAILY 10/09/16 Atorvastatin Calcium [Lipitor] 40 mg PO BEDTIME 12/07/16 Famotidine [Pepcid*] 1 tab PO BEDTIME 12/07/16 Liothyronine Sodium [Cytomel] 1 tab PO [id number] 12/07/16 Magnesium Oxide [Mag 0X*] 400 mg PO BID 12/07/16 Levofloxacin [Levaquin*] 500 mg PO DAILY #10 tab 07/28/17 Furosemide [Lasix] 40 mg PO BIDL #60 tab 08/04/17 - Past Medical/Surgical History Has patient received pneumonia vaccine in the past: Yes Diabetic: Yes -: high cholesterol -: HTN -: CAD -: chronic systolic CHF -: carotid stent -: CABG -: BKA left leg -: Prostate surgery - Family History Father -: Heart disease Mother -: Lung disease - Social History Smoking Status: Never smoker Alcohol use: No CD- Drugs: No Caffeine use: No Place of Residence: Home Review of Systems General: As per HPI Physical Examination - Vital Signs Temperature: 99.3 F Blood Pressure: 108/53 Pulse: 66 Respirations: 18 Pulse Ox (%): 96 - Physical Exam General: Alert, In no apparent distress HEENT: Atraumatic, PERRLA, Mucous membr. moist/pink, EOMI, Sclerae nonicteric Neck: Supple, 2+ carotid pulse no bruit, No LAD, Without JVD or thyroid abnormality Respiratory: Clear to auscultation bilaterally, Normal air movement Cardiovascular: Regular rate/rhythm, Normal S1 S2 Gastrointestinal: Normal bowel sounds, No tenderness Musculoskeletal: No tenderness Integumentary: No rashes Neurological: Normal gait, Normal speech, Normal strength at 5/5 x4 extr, Normal tone, Normal affect Lymphatics: No axilla or inguinal lymphadenopathy - Diagnosis (Problem(s)) (1) Acute on chronic systolic CHF (congestive heart failure) Onset Date: 07/24/17 Status: Resolved Plan: CHF exacerbation due to noncompliance with diet and fluid restriction -ECHO with EF of 45% doing well -Continue on ARB, BB and lasix -DC home with F/u with PCP and cards (2) Hx of CABG Status: Acute (3) Diabetes type 2, controlled Onset Date: 12/08/16 Status: Chronic Qualifiers: Diabetes mellitus [facility] insulin use: with [facility] use Diabetes mellitus complication status: without complication Qualified Code(s): E11.9 - Type 2 diabetes mellitus without complications; Z79.4 - [facility] (current) use of insulin (4) Hypertension Onset Date: 06/18/15 Status: Chronic Qualifiers: Hypertension type: essential hypertension Qualified Code(s): I10 - Essential (primary) hypertension - Disposition Disposition: ROUTINE DISCHARGE Condition: GOOD Patient Discharge Instructions: Please f/u with PCP and Cards in 1 to 2 week post discharge. New medication. Lasix 40mg BID. Stop taking. Bumex Diet: Regular Activity: Ad joao
== END 2017-08-04 11:42 | disposition home or self-care (01) ==
LOC: ER 08:46 → ERHOLD 10:47 → 4TH 12:54
PROVIDERS: ADMIT Family Medicine; ATTEND Family Medicine
DX: I11.0 Hypertensive heart disease with heart failure (principal); I50.23 Acute on chronic systolic (congestive) heart failure; E11.9 Type 2 diabetes mellitus without complications; D64.9 Anemia, unspecified; E87.1 Hypo-osmolality and hyponatremia; N28.9 Disorder of kidney and ureter, unspecified; Z95.1 Presence of aortocoronary bypass graft; Z89.512 Acquired absence of left leg below knee; Z79.82 Long term (current) use of aspirin
CPT/HCPCS: 36415; 71045; 80048; 80076; 81003; 82550; 82553; 82962; 83690; 83735; 83880; 84484; 85025; 85610; 85730; 86850; 86900; 86901; 87077; 87086; 87088; 87186; 93005; 93306; 96365; 96372; 96375; 99285; C9113; G0378; J0696; J1650; J1940

== ENCOUNTER 2017-10-29 08:20 | Emergency (ER) | payer BC ==
[2017-10-29 09:13] LABS: Absolute Lymphocytes (CBC) 1.4 K/uL (0.7-4.9); Absolute Monocytes 0.8 K/uL (0.1-1.3); Absolute Neutrophil 4.6 K/uL (1.8-8.0); Basophils % 0.7 % (0-1.3); Eosinophils % 2.7 % (0-4.4); Hematocrit 31.4 % (39.6-49.0); Lymphocytes % 20.5 % (15.3-44.8); MCV 76.7 fL (80-100); MPV 7.1 fL (7.6-11.3); Monocytes % 11.1 % (3.3-12.3); RBC Red Blood Cell Count 4.09 M/uL (4.33-5.43)
[2017-10-29 09:16] LABS: Protime INR 0.99
[2017-10-29] MEDS ORDERED: INSULIN -REGULAR HUMAN 50 UNIT/0.5 ML ML ONE ×2 (10:16→11:47)
--- NOTE | 2017-10-29 11:09 | EKG ---
Test Date: 2017-10-29 Test Time: 08:47:24 Sleeve Separator: XIANG MEASUREMENT RESULTS: Intervals: Rate: 69 ID: [id number] QRSD: 116 QT: 434 QTc: 465 [place]: P: 51 ID: [id number] QRS: 92 T: 250 INTERPRETIVE STATEMENTS: Normal sinus rhythm Rightward axis T wave abnormality, consider inferolateral ischemia Prolonged QT Abnormal ECG Compared to ECG 08/03/2017 09:14:14 Possible ischemia now present Prolonged QT interval now present First degree AV block no longer present T-wave abnormality still present Electronically Signed On 10-29-17 11:08:37 CDT by Cristino Ellis
[2017-10-29 11:56] LABS: BUN Blood Urea Nitrogen 43 mg/dL (7-18)
[2017-10-29 11:58] LABS: Bicarbonate 29 mmol/L (21-32)
[2017-10-29 12:00] LABS: Potassium 4.2 mmol/L (3.5-5.1); Sodium Level 132 mmol/L (136-145)
[2017-10-29] MEDS ORDERED: NA CHLORIDE 0.9% 1,000 ML ONE (12:00)
[2017-10-29 12:06] LABS: Glucose Level 574 mg/dL (74-106)
--- NOTE | 2017-10-29 13:38 | EDPHYS ---
Physician Documentation [facility] Name: Navjot Collins Age: 72 yrs Sex: Male : 1945 Arrival Date: 10/29/2017 Time: 08:21 Bed 2 Private MD: ED Physician Caleb Locke HPI: 10/29 09:00 This 72 yrs old Male presents to ER via EMS with complaints of Wound Check. rn 09:00 The patient presents with an injury, pain. The complaints affect the right [place]. Onset: rn The symptoms/episode began/occurred yesterday. Severity of symptoms: At their worst the symptoms were mild, in the emergency department the symptoms are unchanged. The patient has not experienced similar symptoms in the past. Reports went to bed last night, leg was ok, woke up with bleeding wounds, has neuropathy and rat problem at home, on aspirin, also reports blood sugar has been high, just started on insulin yesterday.. Historical: - Allergies: 08:22 Codeine; aa5 08:22 Demerol; aa5 08:22 fedrazil; aa5 08:22 Vicodin; aa5 - Home Meds: 08:27 Tresiba FlexTouch U-100 100 unit/mL (3 mL) subcutaneous inpn [Active]; aa5 - PMHx: 08:22 CHF; HTN; Diabetes - IDDM; aa5 - PSHx: 08:22 5 vessel bypass; left lower leg amputation; aa5 - Immunization history:: Adult Immunizations unknown. - Ebola Screening: : No symptoms or risks identified at this time. - Family history:: not pertinent. - Social history:: Smoking status: Patient/guardian denies using tobacco. - Hospitalizations: : No recent hospitalization is reported. ROS: 09:00 Constitutional: Negative for fever, chills, and weight loss, Eyes: Negative for injury, rn pain, redness, and discharge, Neck: Negative for injury, pain, and swelling, Cardiovascular: Negative for chest pain, palpitations, and edema, Respiratory: Negative for shortness of breath, cough, wheezing, and pleuritic chest pain, Abdomen/GI: Negative for abdominal pain, nausea, vomiting, diarrhea, and constipation, MS/Extremity: Negative for deformity, Skin: + multiple skin abrasions and bleeding Neuro: Negative for headache, weakness, and seizure. Exam: 09:00 Constitutional: This is a well developed, well nourished patient who is awake, alert, rn and in no acute distress. Head/Face: Normocephalic, atraumatic. Eyes: Pupils equal round and reactive to light, extra-ocular motions intact. Lids and lashes normal. Conjunctiva and sclera are non-icteric and not injected. Cornea within normal limits. Periorbital areas with no swelling, redness, or edema. ENT: dry MM Cardiovascular: Regular rate and rhythm with a normal S1 and S2. No gallops, murmurs, or rubs. Normal PMI, no JVD. No pulse deficits. Respiratory: Lungs have equal breath sounds bilaterally, clear to auscultation and percussion. No rales, rhonchi or wheezes noted. No increased work of breathing, no retractions or nasal flaring. Abdomen/GI: Soft, non-tender, with normal bowel sounds. No distension or tympany. No guarding or rebound. No evidence of tenderness throughout. MS/ Extremity: Left lower ext amputation with prosthesis in place, RLE with multiple shallow abrasions/ulcerations to anterior tibia, no arterial bleeding, no signs of cellulitis Vital Signs: 08:25 BP 111 / 55; Pulse 72; Resp 18 S; Temp 98.0(O); Pulse Ox 100% on R/A; aa5 09:32 BP 123 / 59; Pulse 72; Resp 18; Pulse Ox 98% on R/A; Pain 0/10; jb4 10:07 BP 123 / 70; Pulse 80; Resp 18; Pulse Ox 100% on R/A; jb1 13:18 BP 105 / 66; Pulse 76; Resp 18; Pulse Ox 98% on R/A; Pain 0/10; jb4 14:18 BP 112 / 60; Pulse 68; Resp 18 S; Pulse Ox 96% on R/A; Pain 0/10; jb4 MDM: 08:21 Patient medically screened. rn 13:35 Differential diagnosis: abrasion, rat bites, hyperglycemia. Data reviewed: vital signs, rn nurses notes, lab test result(s), and as a result, I will discharge patient. Counseling: I had a detailed discussion with the patient and/or guardian regarding: the historical points, exam findings, and any diagnostic results supporting the discharge/admit diagnosis, lab results, the need for outpatient follow up, to return to the emergency department if symptoms worsen or persist or if there are any questions or concerns that arise at home. Response to treatment: the patient's symptoms have markedly improved after treatment, patient is well hydrated. and as a result, I will discharge patient. Special discussion: I discussed with the patient/guardian in detail that at this point there is no indication for admission to the hospital. It is understood, however, that if the symptoms persist or worsen the patient needs to return immediately for re-evaluation. ED course: Abrasions/possible bites, normal bloodwork except for hyperglycemia, no acidosis/AG/ketones, improved down to 225, will dc home, has insulin at home, insulin pen.. 10/29 08:31 Order name: CBC with Diff; Complete Time: 10:09 rn 10/29 08:31 Order name: Basic Metabolic Panel; Complete Time: 12:12 rn 10/29 08:31 Order name: Protime (+inr); Complete Time: 10: rn 10/29 08:31 Order name: Ptt, Activated; Complete Time: 10: rn 10/29 08:31 Order name: Procalcitonin; Complete Time: 10:09 rn 10/29 08:31 Order name: Blood Culture Adult (2) rn 10/29 08:31 Order name: Ketone, Serum; Complete Time: 12:12 rn 10/29 08:31 Order name: Osmolality, Serum; Complete Time: 10:34 rn 10/29 08:34 Order name: Glucose; Complete Time: 10:09 aa5 10/29 08:31 Order name: IV Start; Complete Time: 08:32 rn 10/29 08:31 Order name: Glucose Level; Complete Time: 08:32 rn 10/29 08:31 Order name: EKG; Complete Time: 08:31 rn 08 08:31 Order name: EKG - Nurse/Tech; Complete Time: 08:48 rn Administered Medications: 10:16 Drug: Insulin Regular Human 10 units {Co-Signature: la1 (Tomi Bangura RN).} Route: Sub-Q; iw Site: left upper arm; 11:23 Follow up: Response: No adverse reaction jb4 10:17 Not Given (Physician Discretion): Insulin Regular Human 10 units IVP once iw 11:42 Drug: Insulin Regular Human 10 units {Co-Signature: drea (Aadn Harley RN).} Route: aa5 Sub-Q; Site: left lower abdomen; 13:18 Follow up: Response: No adverse reaction jb4 11:43 Drug: Insulin Regular Human 5 units {Co-Signature: drea (Adan Harley RN).} Route: IVP; aa5 Site: left antecubital; 13:18 Follow up: Response: No adverse reaction jb4 12:01 Drug: NS 0.9% 1000 ml Route: IV; Rate: 1000 ml; Site: left antecubital; la1 13:01 Follow up: Response: No adverse reaction; IV Status: Completed infusion jb4 Point of Care Testing: Blood Glucose: 11:23 Blood Glucose: 447 mg/dL; jb4 13:18 Blood Glucose: 220 mg/dL; jb4 08:32 >486 mg/dL aa5 Ranges: Critical Glucose Levels:Adult <50 mg/dl or >400 mg/dl <40 mg/dl or >180 mg/dl Disposition: 10/29/17 13:37 Discharged to Home. Impression: Hyperglycemia, unspecified, Dehydration, Skin avulsions/abrasions, possible rat bites. - Condition is Stable. - Discharge Instructions: Dehydration, Adult, Hyperglycemia, Blood Glucose Monitoring, Adult, Wound Care. - Prescriptions for Bactrim DS 800- 160 mg Oral Tablet - take 1 tablet by ORAL route every 12 hours for 10 days; 20 tablet. Doxycycline Monohydrate 100 mg Oral Tablet - take 1 tablet by ORAL route every 12 hours for 10 days; 20 tablet. - Medication Reconciliation Form, Thank You Letter, Antibiotic Education, Prescription Opioid Use, Work release form form. - Follow up: Private Physician; When: 5 - 6 days; Reason: Recheck today's complaints, Re-evaluation by your physician. - Problem is new. - Symptoms have improved. Signatures: Dispatcher [employer] Ira Jha RN RN iw Nieto, Roman, MD MD rn Calderon, Audri, RN RN aa5 Tomi Bangura RN RN la1 Adan Harley RN RN jb4 Tomi damon1 Adan Harley RN jb4 Corrections: (The following items were deleted from the chart) 09:03 09:00 Constitutional: Negative for fever, chills, and weight loss, Eyes: Negative for rn injury, pain, redness, and discharge, Neck: Negative for injury, pain, and swelling, Cardiovascular: Negative for chest pain, palpitations, and edema, Respiratory: Negative for shortness of breath, cough, wheezing, and pleuritic chest pain, Abdomen/GI: Negative for abdominal pain, nausea, vomiting, diarrhea, and constipation, MS/Extremity: Negative for deformity, Skin: + multiple skin abrasions and bleeding Neuro: Negative for headache, weakness, numbness, tingling, and seizure, rn 14:45 13:37 10/29/2017 13:37 Discharged to Home. Impression: Hyperglycemia, unspecified; jb4 Dehydration; Skin avulsions/abrasions, possible rat bites. Condition is Stable. Forms are Medication Reconciliation Form, Thank You Letter, Antibiotic Education, Prescription Opioid Use. Follow up: Private Physician; When: 5 - 6 days; Reason: Recheck today's complaints, Re-evaluation by your physician. Problem is new. Symptoms have improved. rn
--- NOTE | 2017-10-29 13:38 | ER ---
Nurse's Notes [facility] Name: Navjot Collins Age: 72 yrs Sex: Male : 1945 Arrival Date: 10/29/2017 Time: 08:21 Bed 2 Private MD: Diagnosis: Hyperglycemia, unspecified;Dehydration;Skin avulsions/abrasions, possible rat bites Presentation: 10/29 08:21 Presenting complaint: EMS states: wound to right lower leg x 2 days ago. Pt states aa5 "I've found 2 rats in my house so I don't know it that is where I got the wounds from". Pt denies any injury. EMS also reports pt has not taken his insulin for 2 weeks. Transition of care: patient was not received from another setting of care. Onset of symptoms was October 2017. Risk Assessment: Do you want to hurt yourself or someone else? Patient reports no desire to harm self or others. Initial Sepsis Screen: Does the patient meet any 2 criteria? No. Patient's initial sepsis screen is negative. Does the patient have a suspected source of infection? No. Patient's initial sepsis screen is negative. Care prior to arrival: Medication(s) given: Normal saline infusion, 250cc IV initiated. 20 GA, in the right antecubital area, Glucose check: 580 Tresiba 20 units SQ. 08:21 Method Of Arrival: EMS: [facility] aa5 08:21 Acuity: ZENAIDA 3 aa5 Historical: - Allergies: 08:22 Codeine; aa5 08:22 Demerol; aa5 08:22 fedrazil; aa5 08:22 Vicodin; aa5 - Home Meds: 08:27 Tresiba FlexTouch U-100 100 unit/mL (3 mL) subcutaneous inpn [Active]; aa5 - PMHx: 08:22 CHF; HTN; Diabetes - IDDM; aa5 - PSHx: 08:22 5 vessel bypass; left lower leg amputation; aa5 - Immunization history:: Adult Immunizations unknown. - Ebola Screening: : No symptoms or risks identified at this time. - Family history:: not pertinent. - Social history:: Smoking status: Patient/guardian denies using tobacco. - Hospitalizations: : No recent hospitalization is reported. Screenin:30 Abuse screen: Denies threats or abuse. Nutritional screening: No deficits noted. aa5 Tuberculosis screening: No symptoms or risk factors identified. Fall Risk Secondary diagnosis (15 points) BKA. IV access (20 points). Total Oakes Fall Scale indicates Low Risk Score (25-44 pts). Fall prevention measures have been instituted. Side Rails Up X 2. Assessment: 08:22 General: Appears comfortable, Behavior is calm, cooperative. Pain: Denies pain. Neuro: aa5 Level of Consciousness is awake, alert, obeys commands, Oriented to person, place, time, situation. Cardiovascular: Heart tones S1 S2 present Rhythm is regular. Respiratory: Airway is patent Respiratory effort is even, unlabored, Respiratory pattern is regular, symmetrical, Breath sounds are clear bilaterally. GI: Abdomen is flat, non-distended, Bowel sounds present X 4 quads. Abd is soft and non tender X 4 quads. Patient currently denies nausea, vomiting. : No signs and/or symptoms were reported regarding the genitourinary system. EENT: No signs and/or symptoms were reported regarding the EENT system. Derm: Skin is pink, warm \\T\\ dry. 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 Abrasion noted to right knee and right lateral aspect of lower leg, multiple puncture wounds noted to right knee, mild bleeding noted at this time. 3 puncture wounds noted to knuckles of right hand (right pinky finger and right ring finger). Large abrasion noted to right [place]. 08:30 Reassessment: When asked why pt has not taken insulin over the last 2 weeks pt states aa5 "I thought the insulin had the needles in the pen ready to go but they didn't and I had trouble figuring out how to attach the needles to the pen so I gave up". Pt states "everything has been hard since my a couple of months ago". . 09:00 Reassessment: Patient and/or family updated on plan of care and expected duration. Pain aa5 level reassessed. Patient is alert, oriented x 3, equal unlabored respirations, skin warm/dry/pink. Patient denies pain at this time. 10:00 Reassessment: Patient and/or family updated on plan of care and expected duration. Pain aa5 level reassessed. Patient is alert, oriented x 3, equal unlabored respirations, skin warm/dry/pink. Patient denies pain at this time. Wound care completed per MD VO to right lower leg and right hand, cleaned with Hibiclens and saline. Right leg and right hand dressed with Neosporin, non-adherent dressing and Kerlix. . 11:00 Reassessment: Patient and/or family updated on plan of care and expected duration. Pain aa5 level reassessed. Patient is alert, oriented x 3, equal unlabored respirations, skin warm/dry/pink. Patient denies pain at this time. 12:03 Reassessment: Patient appears in no apparent distress at this time. No changes from la1 previously documented assessment. Patient and/or family updated on plan of care and expected duration. Pain level reassessed. Patient is alert, oriented x 3, equal unlabored respirations, skin warm/dry/pink. 13:08 Reassessment: Patient appears in no apparent distress at this time. Patient and/or jb4 family updated on plan of care and expected duration. Pain level reassessed. Patient is alert, oriented x 3, equal unlabored respirations, skin warm/dry/pink. Dressing changed applied to lower right leg. Pt denies pain. Vital Signs: 08:25 BP 111 / 55; Pulse 72; Resp 18 S; Temp 98.0(O); Pulse Ox 100% on R/A; aa5 09:32 BP 123 / 59; Pulse 72; Resp 18; Pulse Ox 98% on R/A; Pain 0/10; jb4 10:07 BP 123 / 70; Pulse 80; Resp 18; Pulse Ox 100% on R/A; jb1 13:18 BP 105 / 66; Pulse 76; Resp 18; Pulse Ox 98% on R/A; Pain 0/10; jb4 14:18 BP 112 / 60; Pulse 68; Resp 18 S; Pulse Ox 96% on R/A; Pain 0/10; jb4 ED Course: 08:21 Patient arrived in ED. aa5 08:21 Caleb Locke MD is Attending Physician. rn 08:21 Arm band placed on. aa5 08:21 Patient has correct armband on for positive identification. Bed in low position. Call aa5 light in reach. Side rails up X2. 08:25 First set of blood cultures drawn by me. Maintain EMS IV. Dressing intact. Good blood jb4 return noted. Site clean \\T\\ dry. Gauge \\T\\ site: 20 gauge, right A/C. 08:25 Initial lab(s) drawn, by me, sent to lab. jb4 08:28 Eleonora Emmanuel, RN is Primary Nurse. aa5 08:29 Triage completed. aa5 09:05 Inserted saline lock: 22 gauge in left antecubital area, using aseptic technique. Blood jb4 collected. 09:22 EKG done, by gem technician. reviewed by Caleb Locke MD. at1 09:23 Notified ED physician of a critical lab result(s). 575. la1 09:40 Second set of blood cultures drawn. jb4 10:00 No provider procedures requiring assistance completed. aa5 14:12 intact, bleeding controlled. jb4 Administered Medications: 10:16 Drug: Insulin Regular Human 10 units {Co-Signature: annalise (Tomi Bangura RN).} Route: Sub-Q; iw Site: left upper arm; 11:23 Follow up: Response: No adverse reaction jb4 10:17 Not Given (Physician Discretion): Insulin Regular Human 10 units IVP once iw 11:42 Drug: Insulin Regular Human 10 units {Co-Signature: drea (Adan Harley RN).} Route: aa5 Sub-Q; Site: left lower abdomen; 13:18 Follow up: Response: No adverse reaction jb4 11:43 Drug: Insulin Regular Human 5 units {Co-Signature: drea (Adan Harley RN).} Route: IVP; aa5 Site: left antecubital; 13:18 Follow up: Response: No adverse reaction jb4 12:01 Drug: NS 0.9% 1000 ml Route: IV; Rate: 1000 ml; Site: left antecubital; la1 13:01 Follow up: Response: No adverse reaction; IV Status: Completed infusion jb4 Point of Care Testing: Blood Glucose: 11:23 Blood Glucose: 447 mg/dL; jb4 13:18 Blood Glucose: 220 mg/dL; jb4 08:32 >486 mg/dL aa5 Ranges: Outcome: 13:37 Discharge ordered by . rn 14:12 Discharged to home ambulatory. jb4 14:12 Condition: stable 14:12 Discharge instructions given to patient, Instructed on discharge instructions, follow up and referral plans. medication usage, wound care, Demonstrated understanding of instructions, follow-up care, medications, wound care, Prescriptions given X 2. 14:45 Patient left the ED. jb4 Signatures: Adalberto Rascon jb1 Ira Garcia, RN Caleb Yap MD MD rn Calderon, Audri RN RN aa5 Ana Paula morocho, jockey's agent EKG Tat1 Tomi Bangura, RN RN la1 Adan Harley, RN RN jb4 Tomi Bangura RN la1 Adan Harley RN jb4 Corrections: (The following items were deleted from the chart) 08:28 08:21 Care prior to arrival: IV initiated. 20 GA, in the right antecubital area, aa5 Glucose check: 580 aa5 08:30 08:21 Care prior to arrival: IV initiated. 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 Abrasion noted to right knee and right aa5 lateral aspect of lower leg, multiple puncture wounds noted to right lower leg, mild bleeding noted at this time. 3 puncture wounds noted to top of R hand adjacent to thumb. aa5 10:56 10:00 Reassessment: Patient and/or family updated on plan of care and expected aa5 duration. Pain level reassessed. Patient is alert, oriented x 3, equal unlabored respirations, skin warm/dry/pink. Wound care completed per MD VO to right lower leg and right hand, cleaned with Hibiclens and saline. Right leg and right hand dressed with Neosporin, non-adherent dressing and Kerlix. . aa5 14:16 14:15 Response: No adverse reaction; IV Status: Completed infusion jb4 jb4 14:50 14:12 Discharge instructions given to patient, Instructed on discharge instructions, jb4 follow up and referral plans. medication usage, wound care, Demonstrated understanding of instructions, follow-up care, medications, wound care, Prescriptions given X 2, jb4
[2017-10-29 14:49] VITALS: TEMP 98
[2017-10-29 14:54] VITALS: BP 112/60; O2SAT 96
== END 2017-10-29 14:45 | disposition home or self-care (01) ==
LOC: ER 08:20
DX: S80.811A Abrasion, right lower leg, initial encounter (principal); X58.XXXA Exposure to other specified factors, initial encounter; Y93.9 Activity, unspecified; Y92.9 Unspecified place or not applicable; E11.65 Type 2 diabetes mellitus with hyperglycemia; Z79.4 Long term (current) use of insulin; E86.0 Dehydration; I11.0 Hypertensive heart disease with heart failure; I50.9 Heart failure, unspecified; Z89.512 Acquired absence of left leg below knee; Z88.5 Allergy status to narcotic agent; Z88.8 Allergy status to other drugs, medicaments and biological substances
CPT/HCPCS: 36415; 80048; 82010; 82947; 82962; 83930; 84145; 85025; 85610; 85730; 87040; 93005; 96361; 96372; 96374; 99284; J7030

== ENCOUNTER 2018-04-13 21:03 | Observation (INO) | payer BC ==
[2018-04-13 21:44] LABS: Absolute Lymphocytes (CBC) 0.9 K/uL (0.7-4.9); Absolute Neutrophil 4.6 K/uL (1.8-8.0); Basophils % 0.4 % (0-1.3); Eosinophils % 0.7 % (0-4.4); Hematocrit 41.5 % (39.6-49.0); Lymphocytes % 13.2 % (15.3-44.8); MPV 7.8 fL (7.6-11.3); Monocytes % 15.5 % (3.3-12.3); Protime INR 1.05; RBC Red Blood Cell Count 4.81 M/uL (4.33-5.43)
[2018-04-13 22:00] LABS: Albumin 3.6 g/dL (3.4-5.0); Bilirubin Direct 0.2 mg/dL (0-0.2); Bilirubin Total 0.7 mg/dL (0.2-1.0); Magnesium 2.6 mg/dL (1.8-2.4); Potassium 4.3 mmol/L (3.5-5.1); Protein, Total 7.5 g/dL (6.4-8.2)
[2018-04-13 22:34] LABS: Blood Morphology Comment NOT SEEN (NOT SEEN); Platelet Estimate ADEQ
[2018-04-13 23:16] LABS: Urine Blood 1+ (NEG); Urine Glucose 3+ (NEG); Urine Protein 1+ (NEG); Urine Specific Gravity 1.015 (1.005-1.030); Urine pH 5.5 (5.0-7.0)
[2018-04-13] MEDS ORDERED: INSULIN -REGULAR HUMAN 50 UNIT/0.5 ML ML ONE (23:35)
[2018-04-14 00:03] LABS: Urine Bacteria 20-50 /HPF (NONE SEEN); Urine Culture Reflex Order REFLEXED; Urine RBC <5 /HPF (NONE SEEN); Urine Yeast PRESENT (NONE SEEN)
--- NOTE | 2018-04-14 00:21 | ER ---
Nurse's Notes [facility] Name: Navjot Collins Age: 72 yrs Sex: Male : 1945 Arrival Date: 04/13/2018 Time: 21:04 Bed 23 Private MD: Diagnosis: Urinary tract infection, site not specified;Unspecified combined systolic (congestive) and diastolic (congestive) heart failure Presentation: 04/13 21:09 Presenting complaint: Patient states: COUGH AND CONGESTION SINCE THURSDAY. TAKING DESYM ls4 AND STILL FEELING BAD. THROAT HURTS AND NOSE IS STUFFY. DRAINAGE GOES TO MY STOMACH AND MAKES MY STOMACH UNEASY. Transition of care: patient was not received from another setting of care. Onset of symptoms was April 11, 2018. Risk Assessment: Do you want to hurt yourself or someone else? Patient reports no desire to harm self or others. Initial Sepsis Screen: Does the patient meet any 2 criteria? No. Patient's initial sepsis screen is negative. Does the patient have a suspected source of infection? No. Patient's initial sepsis screen is negative. Care prior to arrival: None. 21:09 Method Of Arrival: EMS: [facility] ls4 21:09 Acuity: ZENAIDA 3 ls4 Triage Assessment: 21:13 General: Appears in no apparent distress. Behavior is calm, cooperative. Pain: Denies ls4 pain. Historical: - Allergies: 21:13 Codeine; ls4 21:13 Demerol; ls4 21:13 fedrazil; ls4 21:13 Vicodin; ls4 - Home Meds: 21:13 Tresiba FlexTouch U-100 100 unit/mL (3 mL) subcutaneous inpn [Active]; metformin 500 mg ls4 Oral tab 1 tab 2 times per day [Active]; glipizide 10 mg Oral tab 1 tab 2 times per day [Active]; - PMHx: 21:13 CHF; Diabetes - IDDM; Diabetes - NIDDM; HTN; ls4 - Immunization history:: Adult Immunizations up to date. - Social history:: Smoking status: Patient/guardian denies using tobacco, never smoked. - Ebola Screening: : Patient negative for fever greater than or equal to 101.5 degrees Fahrenheit, and additional compatible Ebola Virus Disease symptoms Patient denies exposure to infectious person Patient denies travel to an Ebola-affected area in the 21 days before illness onset No symptoms or risks identified at this time. Screenin:15 Abuse screen: Denies threats or abuse. Denies injuries from another. Nutritional ls4 screening: No deficits noted. Tuberculosis screening: No symptoms or risk factors identified. Fall Risk None identified. Assessment: 21:15 General: Appears in no apparent distress. Behavior is calm, cooperative. Neuro: No ls4 deficits noted. Respiratory: No deficits noted. GI: No deficits noted. : No deficits noted. EENT: Reports difficulty swallowing since THURSDAY DUE TO SORE THROAT THURSDAY nasal congestion since THURSDAY. Musculoskeletal: Amputation of BKA Circulation, motion, and sensation intact. Capillary refill < 3 seconds, Range of motion: intact in all extremities. 22:30 Reassessment: Patient appears in no apparent distress at this time. Patient and/or ls4 family updated on plan of care and expected duration. Pain level reassessed. Patient is alert, oriented x 3, equal unlabored respirations, skin warm/dry/pink. 04/14 00:01 Reassessment: Patient and/or family updated on plan of care and expected duration. Pain ls4 level reassessed. Patient is alert, oriented x 3, equal unlabored respirations, skin warm/dry/pink. Vital Signs: 04/13 21:13 BP 114 / 63; Pulse 70; Resp 16; Temp 98.2(O); Pulse Ox 99% on R/A; Pain 3/10; ls4 22:26 BP 118 / 58; Pulse 73; Resp 16; Temp 98.4; Pulse Ox 96% on R/A; Pain 0/10; ls4 23:54 BP 109 / 47; Pulse 76; Resp 16; Pulse Ox 99% on R/A; Pain 3/10; rv 04/14 00:00 BP 105 / 51; Pulse 70; Resp 18; Pulse Ox 98% on R/A; rv 00:30 BP 106 / 51; Pulse 69; Resp 18; Pulse Ox 100% on R/A; rv ED Course: 04/13 21:04 Patient arrived in ED. al2 21:05 Davon Norman PA is PHCP. cp 21:05 Mekhi Sandhu MD is Attending Physician. cp 21:09 Zee Norman RN is Primary Nurse. ls4 21:11 Triage completed. ls4 21:13 Arm band placed on right wrist. ls4 21:14 Fall risk band placed. Side rails up X 1. Pulse ox on. NIBP on. ls4 21:14 Warm blanket given. ls4 21:22 No provider procedures requiring assistance completed. ls4 21:42 Inserted saline lock: 20 gauge in right forearm, using aseptic technique. lt1 21:42 Initial lab(s) drawn, by me, sent to lab. lt1 21:42 Flu and/or RSV swab sent to lab. Strep swab sent to lab. lt1 21:57 XRAY Chest (1 view) In Process Unspecified. EDMS 23:54 Urine Dipstick--Ancillary (enter results) Sent. rv 04/14 00:19 Rodo Paz MD is Hospitalizing Provider. cp 00:36 Inserted saline lock: 22 gauge in right hand, using aseptic technique. IV discontinued, ls4 RIGHT FOREARM 20 G DISCONTINUED, SOME SWELLING AT CATHETER SITE, POSSIBLE TO INFILTRATE. WARM PACK APPLIED. 01:04 Urine Culture Sent. rv Administered Medications: 04/13 23:42 Drug: Insulin Regular Human 10 units {Co-Signature: rv (Naresh Hoover RN).} Route: ls4 IVP; Site: left antecubital; 23:59 Follow up: Response: No adverse reaction; Blood sugar is lowered ls4 04/14 00:34 Drug: Rocephin - (cefTRIAXone) 1 grams {Note: 10 MIN PER PHARMACY PROTOCOL .} Route: ls4 IVPB; Infused Over: 10 mins; Site: right hand; 01:04 Follow up: IV Status: Completed infusion rv 00:34 Drug: Lasix 20 mg Route: IVP; Site: right hand; ls4 01:04 Follow up: Response: No adverse reaction rv Outcome: 00:20 Decision to Hospitalize by Provider. cp 01:02 Admitted to Med/surg accompanied by tech, via stretcher, room 206, with chart, Report rv called to SHALA ROQUE3 01:02 Condition: good 01:02 Instructed on the need for admit. 01:35 Patient left the ED. rv Signatures: Dispatcher [employer] EDMS Davon Norman PA PA cp Love, Angelica al2 Naresh Hoover RN RN rv Zee Norman RN RN ls4 Jennifer Mcfarland lt1 Naresh Hoover RN rv Corrections: (The following items were deleted from the chart) 04/13 21:25 21:09 Acuity: ZENAIDA 4 ls4 ls4
--- NOTE | 2018-04-14 00:21 | EDPHYS ---
Physician Documentation [facility] Name: Navjot Collins Age: 72 yrs Sex: Male : 1945 Arrival Date: 04/13/2018 Time: 21:04 Bed 23 Private MD: ED Physician Mekhi Sandhu HPI: 04/13 21:15 This 72 yrs old Male presents to ER via EMS with complaints of cough, cp congestion. 21:15 The patient or guardian reports cough, that is intermittent. cp 21:15 Onset: The symptoms/episode began/occurred 2 day(s) ago. cp 21:15 Severity of symptoms: in the emergency department the symptoms are unchanged, despite cp home interventions. Associated signs and symptoms: Pertinent positives: nausea, sore throat. Historical: - Allergies: 21:13 Codeine; ls4 21:13 Demerol; ls4 21:13 fedrazil; ls4 21:13 Vicodin; ls4 - Home Meds: 21:13 Tresiba FlexTouch U-100 100 unit/mL (3 mL) subcutaneous inpn [Active]; metformin 500 mg ls4 Oral tab 1 tab 2 times per day [Active]; glipizide 10 mg Oral tab 1 tab 2 times per day [Active]; - PMHx: 21:13 CHF; Diabetes - IDDM; Diabetes - NIDDM; HTN; ls4 - Immunization history:: Adult Immunizations up to date. - Social history:: Smoking status: Patient/guardian denies using tobacco, never smoked. - Ebola Screening: : Patient negative for fever greater than or equal to 101.5 degrees Fahrenheit, and additional compatible Ebola Virus Disease symptoms Patient denies exposure to infectious person Patient denies travel to an Ebola-affected area in the 21 days before illness onset No symptoms or risks identified at this time. ROS: 21:25 Constitutional: Positive for body aches, Negative for fever, poor PO intake. cp 21:25 Eyes: Negative for injury, pain, redness, and discharge. cp 21:25 ENT: Positive for sinus congestion, sore throat, Negative for drainage from ear(s), ear cp pain, difficulty swallowing, difficulty handling secretions. 21:25 Neck: Negative for pain with movement, pain at rest, stiffness. 21:25 Cardiovascular: Negative for chest pain, palpitations. 21:25 Respiratory: Positive for cough, "sounds productive", Negative for wheezing. cp 21:25 Abdomen/GI: Negative for abdominal pain, vomiting, diarrhea, constipation, black/tarry stool, rectal bleeding. 21:25 : Negative for urinary symptoms, testicular pain 21:25 Skin: Negative for cellulitis, rash. 21:25 Neuro: Positive for general weakness, Negative for altered mental status, dizziness, headache. 21:25 All other systems are negative. Exam: 21:30 Constitutional: The patient appears in no acute distress, alert, awake, cp non-diaphoretic, non-toxic, well developed, well nourished. 21:30 Head/Face: Normocephalic, atraumatic. cp 21:30 Eyes: Periorbital structures: appear normal, Pupils: equal, round, and reactive to cp light and accomodation, Extraocular movements: intact throughout, Conjunctiva: normal, no exudate, no injection, Sclera: no appreciated abnormality, Lids and lashes: appear normal, bilaterally. 21:30 ENT: External ear(s): are unremarkable, Ear canal(s): are normal, clear, TM's: bulging, is not appreciated, bilaterally, dullness, bilaterally, erythema, is not appreciated, bilaterally, Nose: is normal, Mouth: Lips: moist, Oral mucosa: pink and intact, moist, Posterior pharynx: is normal, airway is patent, no erythema, no exudate. 21:30 Neck: ROM/movement: is normal, is supple, without pain, no range of motions cp limitations, no meningismus, no nuchal rigidity. 21:30 Chest/axilla: Inspection: normal, Palpation: is normal, no crepitus, no tenderness. 21:30 Cardiovascular: Rate: normal, Rhythm: regular, JVD: is not appreciated. 21:30 Respiratory: the patient does not display signs of respiratory distress, Respirations: normal, no use of accessory muscles, no retractions, no splinting, no tachypnea, labored breathing, is not present, Breath sounds: bronchial sounds, that are mild, are heard diffusely, stridor, is not appreciated, + upper airway congestion. wheezing: is not appreciated. 21:30 Abdomen/GI: Inspection: abdomen appears normal, Bowel sounds: active, all quadrants, Palpation: abdomen is soft and non-tender, in all quadrants, rebound tenderness, is not appreciated, voluntary guarding, is not appreciated, involuntary guarding, is not appreciated. 21:30 Back: CVA tenderness, is absent. 21:30 Skin: cellulitis, is not appreciated, no rash present. 21:30 Neuro: Orientation: to person, place \\T\\ time. Mentation: is normal, Cerebellar function: is grossly normal, Motor: moves all fours, strength is normal, Sensation: is normal. 21:30 Musculoskeletal/extremity: left BKA. cp Vital Signs: 21:13 BP 114 / 63; Pulse 70; Resp 16; Temp 98.2(O); Pulse Ox 99% on R/A; Pain 3/10; ls4 22:26 BP 118 / 58; Pulse 73; Resp 16; Temp 98.4; Pulse Ox 96% on R/A; Pain 0/10; ls4 23:54 BP 109 / 47; Pulse 76; Resp 16; Pulse Ox 99% on R/A; Pain 3/10; rv 04/14 00:00 BP 105 / 51; Pulse 70; Resp 18; Pulse Ox 98% on R/A; rv 00:30 BP 106 / 51; Pulse 69; Resp 18; Pulse Ox 100% on R/A; rv MDM: 04/13 21:05 Patient medically screened. cp 22:00 Differential Diagnosis: Bronchitis Influenza Otitis Media Pneumonia Other CHF, cp pulmonary edema, sepsis. 04/14 00:18 Data reviewed: vital signs, nurses notes, lab test result(s), EKG, radiologic studies, cp plain films. Physician consultation: Rodo Paz MD was called at 00:18, was contacted at 00:18, regarding admission, to the telemetry unit. patient's condition. 04/13 21:13 Order name: Influenza Screen (a \\T\\ B); Complete Time: 22:30 cp 04/13 21:13 Order name: Strep; Complete Time: 22:30 cp 04/13 21: Order name: Basic Metabolic Panel; Complete Time: 22:30 cp 04/13 23:20 Interpretation: Normal except: GLUC 328; BUN 44; CRE 1.53; GFR 45. cp 04/13 21: Order name: CBC with Diff; Complete Time: 23:04 cp 04/13 23:04 Interpretation: Normal except: MCV 86.3; MCH 29.1; LYM% 13.2; MN% 15.5. 04/13 21:13 Order name: LFT's; Complete Time: 22:30 04/13 23:36 Interpretation: Normal except: ALK 124; GLOB 3.9; A/G 0.9. cp 04/13 21:13 Order name: Magnesium; Complete Time: 22:30 04/13 23:47 Interpretation: Abnormal: MG 2.6. 04/13 21:13 Order name: NT PRO-BNP; Complete Time: 22:30 04/13 23:20 Interpretation: Abnormal: NT PRO-BNP 3285. 04/13 21:13 Order name: PT-INR; Complete Time: 22:30 04/13 21:46 Order name: Manual Differential; Complete Time: 23:04 EDMO 04/13 23:47 Interpretation: Normal except: LYM 13; MONO 11. 04/13 22:09 Order name: Throat Culture EDMO 04/13 22:44 Order name: Urine Dipstick--Ancillary (enter results) ar5 04/13 22:45 Order name: Urine Dipstick-Ancillary; Complete Time: 23:20 [facility] 04/13 23:20 Interpretation: Normal except: UBLD 1+; UPROT 1+; UESTR 1+. 04/13 23:37 Order name: Urine Microscopic Only; Complete Time: 00:16 04/14 00:16 Interpretation: Normal except: UWBC >50; UBACT 20-50; YEAST PRESENT; BUD PRESENT. 04/13 23:56 Order name: Glucose, Ancillary Testing; Complete Time: 00:16 [facility] 04/13 21:13 Order name: Urine Dipstick-Ancillary (obtain specimen); Complete Time: 22:40 04/13 21:13 Order name: XRAY Chest (1 view) 04/13 21:13 Order name: EKG; Complete Time: 21:14 04/13 21:13 Order name: Cardiac monitoring; Complete Time: 21:24 04/13 21:13 Order name: EKG - Nurse/Tech; Complete Time: 21:24 04/13 21:13 Order name: IV Saline Lock; Complete Time: 21:25 04/13 21:13 Order name: Labs collected and sent; Complete Time: 21:25 04/13 21:13 Order name: O2 Per Protocol; Complete Time: 00:00 cp 04/13 21:13 Order name: O2 Sat Monitoring; Complete Time: 21:25 cp 04/14 00:07 Order name: Urine Culture EDMS 04/14 00:45 Order name: Lactate EDMS 04/14 00:45 Order name: Procalcitonin EDMS Administered Medications: 04/13 23:42 Drug: Insulin Regular Human 10 units {Co-Signature: rv (Naresh Hoover RN).} Route: ls4 IVP; Site: left antecubital; 23:59 Follow up: Response: No adverse reaction; Blood sugar is lowered [facility] 04/14 00:34 Drug: Rocephin - (cefTRIAXone) 1 grams {Note: 10 MIN PER PHARMACY PROTOCOL .} Route: ls4 IVPB; Infused Over: 10 mins; Site: right hand; 01:04 Follow up: IV Status: Completed infusion rv 00:34 Drug: Lasix 20 mg Route: IVP; Site: right hand; [facility] 01:04 Follow up: Response: No adverse reaction rv Disposition: 04/14/18 00:20 Hospitalization ordered by Rodo Paz for Observation. Preliminary diagnosis are Urinary tract infection, site not specified, Unspecified combined systolic (congestive) and diastolic (congestive) heart failure. - Bed requested for Telemetry/MedSurg (observation). - Status is Observation. rv - Condition is Stable. - Problem is new. - Symptoms have improved. UTI on Admission? Yes Signatures: Dispatcher [employer] [facility] Sarahi Osborne RN RN mw Page, Corey, PA PA cp Vicente, Ronaldo, RN RN rv Stewart, Lisa, RN RN 4 Naresh Hoover RN rv Corrections: (The following items were deleted from the chart) 00:26 00:20 Hospitalization Ordered by Rodo Paz MD for Observation. Preliminary mw diagnosis is Urinary tract infection, site not specified; Unspecified combined systolic (congestive) and diastolic (congestive) heart failure. Bed requested for Telemetry/MedSurg (observation). Status is Observation. Condition is Stable. Problem is new. Symptoms have improved. UTI on Admission? Yes. cp 01:35 00:26 04/14/2018 00:20 Hospitalization Ordered by Rodo Paz MD for Observation. rv Preliminary diagnosis is Urinary tract infection, site not specified; Unspecified combined systolic (congestive) and diastolic (congestive) heart failure. Bed requested for Telemetry/MedSurg (observation). Status is Observation. Condition is Stable. Problem is new. Symptoms have improved. UTI on Admission? Yes. mw
[2018-04-14] MEDS ORDERED: FUROSEMIDE 20 MG/ 2ML VIAL ONE (00:31)
[2018-04-14] MEDS ORDERED: CEFTRIAXONE/SWI 1gm 1 GM/10 ML SYR ONE (00:31)
--- NOTE | 2018-04-14 00:54 | P.HP ---
Certification for Inpatient Patient admitted to: Inpatient With expected LOS: >2 Midnights Practitioner: I am a practitioner with admitting privileges, knowledge of patient current condition, hospital course, and medical plan of care. Services: Services provided to patient in accordance with Admission requirements found in Title 42 Section 412.3 of the Code of Federal Regulations Patient History Date of Service: 04/14/18 Reason for admission: UTI, URI History of Present Illness: Mr Collins is a 72 years old male with history of CAD, Chronic systolic CHF, last echo shows EF 45% on 08/07, diabetes mellitus II, HTN, who start about 3 days ago with stuffy and runny nose, chills but no fever, sore throat, upset stomach and dry cough. His symptoms continue getting worse and today decided to come to ER for evaluation. At arrival he was afebrile, O2 Sat 99% on RA, Lab work remarkable for normal WBC count, abnormal renal function (possible at baseline) and abnormal UA consistent with UTI. ProBNP is also elevated, but the patient denied SOB. Allergies meperidine [From Demerol] Allergy (Verified 07/23/17 23:55) Unknown pseudoephedrine Allergy (Verified 07/23/17 23:55) Hives acetaminophen [From Vicodin] Adverse Reaction (Verified 07/23/17 23:55) Nausea/Vomiting codeine Adverse Reaction (Verified 07/23/17 23:55) Nausea/Vomiting hydrocodone bitartrate [From Vicodin] Adverse Reaction (Verified 07/23/17 23:55) Nausea/Vomiting fedrazil Allergy (Mild, Uncoded 07/24/17 03:46) Unknown Home medications list reviewed: Yes Home Medications: Aspirin [Bello Chewable Aspirin] 1 tab PO DAILY 05/31/15 Losartan Potassium [Cozaar*] 50 mg PO DAILY #30 tablet 07/10/15 Tamsulosin HCl [Flomax] 0.4 mg PO DAILY #30 cap.er.24h 07/10/15 Ascorbic Acid [Vitamin C*] 1,000 mg PO DAILY 10/09/16 Carvedilol [Coreg*] 6.25 mg PO BID 10/09/16 Finasteride [Proscar*] 5 mg PO DAILY 10/09/16 Glipizide [Glipizide Xl] 10 mg PO BID 10/09/16 Metformin ER [Glucophage ER*] 500 mg PO BID 10/09/16 Zinc Sulfate [Zinc Sulfate*] 220 mg PO DAILY 10/09/16 Atorvastatin Calcium [Lipitor] 40 mg PO BEDTIME 12/07/16 Famotidine [Pepcid*] 1 tab PO BEDTIME 12/07/16 Liothyronine Sodium [Cytomel] 1 tab PO [id number] 12/07/16 Magnesium Oxide [Mag 0X*] 400 mg PO BID 12/07/16 levoFLOXacin [Levaquin*] 500 mg PO DAILY #10 tab 07/28/17 Furosemide [Lasix] 40 mg PO BIDL #60 tab 08/04/17 - Past Medical/Surgical History Diabetic: Yes -: high cholesterol -: HTN -: CAD -: chronic systolic CHF -: carotid stent -: CABG -: BKA left leg -: Prostate surgery - Family History Father -: Heart disease Mother -: Lung disease - Social History Smoking Status: Never smoker Alcohol use: No CD- Drugs: No Caffeine use: No Place of Residence: Home Review of Systems 10-point ROS is otherwise unremarkable Physical Examination - Physical Exam General: Alert, In no apparent distress HEENT: Atraumatic, PERRLA, Mucous membr. moist/pink, EOMI, Sclerae nonicteric Neck: Supple, 2+ carotid pulse no bruit, No LAD, Without JVD or thyroid abnormality Respiratory: Normal air movement, Other (coarse bilateral) Cardiovascular: Regular rate/rhythm, Normal S1 S2 Gastrointestinal: Normal bowel sounds, No tenderness Musculoskeletal: No tenderness, Other (left BKA) Integumentary: No rashes Neurological: Normal speech, Normal strength at 5/5 x4 extr, Normal tone, Normal affect Lymphatics: No axilla or inguinal lymphadenopathy - Studies Laboratory Data (last 24 hrs) 04/13/18 21:25: PT 12.4, INR 1.05 04/13/18 21:25: WBC 6.6, Hgb 14.0, Hct 41.5, Plt Count 218 04/13/18 21:25: Sodium 138, Potassium 4.3, BUN 44 H, Creatinine 1.53 H, Glucose 328 H, Magnesium 2.6 H, Total Bilirubin 0.7, AST 24, ALT 52, Alkaline Phosphatase 124 H Microbiology Data (last 24 hrs): 04/13/18 21:34 Throat Group A Streptococcus Rapid Screen - Final 04/13/18 21:34 Nasopharnyx Influenza Type A Antigen Screen - Final 04/13/18 21:34 Nasopharnyx Influenza Type B Antigen Screen - Final Assessment and Plan - Problems (Diagnosis) (1) CKD (chronic kidney disease) Current Visit: Yes Status: Acute Qualifiers: Chronic kidney disease stage: stage 3 (moderate) Qualified Code(s): N18.3 - Chronic kidney disease, stage 3 (moderate) (2) Chronic systolic CHF (congestive heart failure) Current Visit: Yes Status: Acute (3) URI (upper respiratory infection) Current Visit: Yes Status: Acute Qualifiers: URI type: unspecified viral URI Qualified Code(s): J06.9 - Acute upper respiratory infection, unspecified (4) CAD (coronary artery disease) Current Visit: Yes Status: Acute Qualifiers: Coronary Disease-Associated Artery/Lesion type: bypass graft [place] vs. 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 UA shows presence of yeast as well as leukocyte esterase. Will start empiric treatment with fluconazole and Rocephin. Pending lactate and procalcitonin. - Advance Directives Does patient have a Living Will: No Does patient have a Durable POA for Healthcare: No - Code Status/Comfort Care Code Status Assessed: Yes Code Status: Full Code
[2018-04-14] MEDS ORDERED: ACETAMINOPHEN 500 MG TAB PO PRN (01:43)
[2018-04-14] MEDS ORDERED: ONDANSETRON 4 MG/2 ML VIAL IV PRN (01:43)
[2018-04-14] MEDS ORDERED: FLUCONAZOLE 200mg IVPB 200 MG/100 ML BAG IV SCH (01:43)
[2018-04-14 01:55] VITALS: BMI 22.7
[2018-04-14] MEDS: PHENOL 1.4% ORAL SPRAY 180ML MM PRN ×2 (05:00→09:34)
--- NOTE | 2018-04-14 08:09 | RAD REPORT ---
EXAM DESCRIPTION: Marisol Single View04/13/2018 11:41 pm CLINICAL HISTORY: Cough COMPARISON: July 2017 FINDINGS: The lungs appear clear of acute infiltrate. The heart is mildly to moderately enlarged. Postsurgical changes involve the chest. IMPRESSION: No acute abnormalities displayed
[2018-04-14] MEDS ORDERED: CEFTRIAXONE/SWI 1gm 1 GM/10 ML SYR IV SCH (09:00)
[2018-04-14] MEDS ORDERED: ASCORBIC ACID 500 MG TABLET PO SCH (09:00)
[2018-04-14] MEDS ORDERED: LOSARTAN POTASSIUM 50 MG TABLET PO SCH (09:00)
[2018-04-14] MEDS ORDERED: INFLUENZA VACCINE (for 3y+) 0.5 ML DOSE IMVAC ONE (09:00)
[2018-04-14] MEDS ORDERED: TAMSULOSIN 0.4 MG SR CAP PO SCH (09:00)
[2018-04-14] MEDS ORDERED: LIOTHYRONINE SOD 25 MCG TAB PO SCH (09:00)
[2018-04-14] MEDS ORDERED: CEFTRIAXONE 1 GM/NS 50 ML 1 GM/50 ML BAG IV SCH (09:00)
[2018-04-14] MEDS ORDERED: FINASTERIDE 5 MG TAB PO SCH (09:00)
[2018-04-14] MEDS ORDERED: INSULIN DEGLUDEC 20 UNIT SQ SCH (09:00)
[2018-04-14] MEDS ORDERED: ENOXAPARIN 40 MG/0.4 ML SQ SCH (09:00)
[2018-04-14] MEDS ORDERED: CARVEDILOL 6.25 MG TAB PO SCH (09:00)
[2018-04-14] MEDS ORDERED: ASPIRIN 81 MG CHEWABLE TABLET PO SCH (09:00)
[2018-04-14] MEDS: INSULIN -REGULAR HUMAN 50 UNIT/0.5 ML ML SQ SCH ×2 (09:40→11:30)
--- NOTE | 2018-04-14 10:09 | P.DS ---
Admission Date: 04/14/18 Discharge Date: 04/14/18 Primary Care Provider: Dr. Greene; Cardiology-Dr. Kelley; Disposition: ROUTINE DISCHARGE Discharge Condition: GOOD Reason for Admission: UTI, URI Consultations: none Procedures: Chest x-ray: Unremarkable Medication problem list: UTI URI likely viral Chronic renal disease stage 3 CAD Chronic systolic CHF Diabetes mellitus type 2 Hypertension Insomnia History BKA left lower extremity BPH Hypothyroidism Grief reaction Brief History of Present Illness: 72-year-old male presented emergency room with cough, congestion and sore throat. Patient was evaluated in the emergency room. Chest x-ray unremarkable. Urinalysis showed UTI. Patient was admitted for treatment. Patient with underlying chronic CHF, CAD, diabetes, hypertension. Hospital Course: Patient presented with cough, congestion. Patient evaluated in the hospital. Chest x-ray unremarkable for pneumonia. Pro calcitonin negative. White count negative. Strep test and influenza test also negative. Patient likely with viral upper respiratory infection. Patient also found to have UTI. Yeast was also noted. Patient did well in his stay. at discharge patient will continue with Augmentin 500 mg 1 pill twice daily for 7 days. Patient will also be given Diflucan 100 mg once daily for 5 days. Patient will be provided Tessalon Perles 100 mg 1 pill 3 times a day as needed for cough and Mucinex 600 mg twice daily as needed for congestion. Recommendation is for the patient to follow up with his PCP within 1 week to follow up urine culture results. Patient may require repeat chest x-ray in the future if congestion persists. Patient with chronic renal disease stage II. This has remained stable. Recommend for patient to follow up with nephrology in outpatient to further monitor. Recommend to recheck lab-BMP in 1-2 weeks to monitor stability. Recommend no further use of nonsteroidal anti-inflammatories. Future medications will need to be renally dosed. Patient with chronic systolic CHF and CAD. This has remained stable. Recent echo shows ejection fraction 45%. Patient will continue with a 1500 cc per day fluid restriction and low-salt diet. Patient may follow up with cardiology as directed. Patient may require diuretic therapy in the future if with increase edema and shortness of breath. Patient will continue with aspirin 81 mg daily. Patient has hypertension. This has remained stable. At discharge patient will continue with carvedilol 6.25 mg 1 pill twice daily and losartan 50 mg 1 pill daily. Recommendation is to maintain blood pressures less 150/80. Further adjustment can be done by his PCP. Patient has diabetes mellitus type 2, insulin dependent. This has remained stable. At discharge patient will continue with Tresiba 20 units subcu daily, glipizide 10 mg 1 pill twice daily and metformin 500 mg 1 pill twice daily. Recommendation is to maintain blood sugars less 140 fasting and less than 200 per meals. Further adjustment can be done by his PCP. Patient has BPH. Patient will continue with Proscar 5 mg daily and Flomax 0.4 mg daily. Patient may follow up with urology as directed. Patient has hypothyroidism. Patient will continue with Cytomel 25 mcg daily. Patient has hyperlipidemia. Patient will continue with Lipitor 40 mg daily. Patient reports loss of over the last year. Patient may benefit with grief counseling. This can be further addressed by his PCP. Vital Signs/Physical Exam: Temp Pulse Resp BP Pulse Ox 98.6 F 74 17 129/58 L 97 04/14/18 08:00 04/14/18 09:37 04/14/18 08:00 04/14/18 09:37 04/14/18 08:00 General: Alert, In no apparent distress, Oriented x3, Cooperative HEENT: Atraumatic Neck: Supple Respiratory: Clear to auscultation bilaterally, Normal air movement Cardiovascular: Normal pulses, Regular rate/rhythm Gastrointestinal: Normal bowel sounds, Soft and benign, Non-distended, No tenderness, No masses, No rebound, No guarding Musculoskeletal: No erythema, No tenderness, No warmth Integumentary: No tenderness/swelling, No erythema, No warmth, No cyanosis Neurological: Normal speech, Normal strength at 5/5 x4 extr, Normal tone, Normal affect Laboratory Data at Discharge: WBC 6.6 K/uL (4.3-10.9) 04/13/18 21:25 Hgb 14.0 g/dL (13.6-17.9) 04/13/18 21:25 Hct 41.5 % (39.6-49.0) 04/13/18 21:25 Plt Count 218 K/uL (152-406) 04/13/18 21:25 PT 12.4 SECONDS (9.5-12.5) 04/13/18 21:25 INR 1.05 04/13/18 21:25 Sodium 138 mmol/L (136-145) 04/13/18 21:25 Potassium 4.3 mmol/L (3.5-5.1) 04/13/18 21:25 BUN 44 mg/dL (7-18) H 04/13/18 21:25 Creatinine 1.53 mg/dL (0.55-1.3) H 04/13/18 21:25 Glucose 328 mg/dL (74-106) H 04/13/18 21:25 Magnesium 2.6 mg/dL (1.8-2.4) H 04/13/18 21:25 Total Bilirubin 0.7 mg/dL (0.2-1.0) 04/13/18 21:25 AST 24 U/L (15-37) 04/13/18 21:25 ALT 52 U/L (12-78) 04/13/18 21:25 Alkaline Phosphatase 124 U/L (45-117) H 04/13/18 21:25 Home Medications: Amoxicillin/Potassium Clav [Augmentin 500-125 Tablet] 1 each PO BID #14 tablet 04/14/18 Aspirin 81 mg PO DAILY 04/14/18 Atorvastatin Calcium 40 mg PO DAILY 04/14/18 Benzonatate [Tessalon Perle] 100 mg PO TID PRN #15 cap 04/14/18 Carvedilol [Coreg*] 6.25 mg PO BID 04/14/18 Finasteride [Proscar*] 5 mg PO DAILY 04/14/18 Fluconazole [Diflucan] 100 mg PO DAILY #5 tablet 04/14/18 Glipizide [Glucotrol] 10 mg PO BID 04/14/18 Guaifenesin [Mucinex] 600 mg PO BID #15 tab.er.12h 04/14/18 Insulin Degludec [Tresiba Flextouch U-200] 20 units SQ DAILY 04/14/18 Liothyronine [Cytomel*] 1 tab PO DAILY 04/14/18 Losartan Potassium [Cozaar*] 50 mg PO DAILY 04/14/18 Metformin HCl 500 mg PO BID 04/14/18 Tamsulosin HCl 0.4 mg PO DAILY 04/14/18 Vit C/Ascorb Sod/Multivit-Min [Emergen-C 500 mg Chewable Tab] 1,000 mg PO DAILY 04/14/18 New Medications: Amoxicillin/Potassium Clav [Augmentin 500-125 Tablet] 1 each PO BID #14 tablet Benzonatate [Tessalon Perle] 100 mg PO TID PRN #15 cap PRN Reason: Cough Fluconazole [Diflucan] 100 mg PO DAILY #5 tablet Guaifenesin [Mucinex] 600 mg PO BID #15 tab.er.12h Patient Discharge Instructions: 1. Patient will need follow up with PCP in 1 week to follow up this hospitalization. 2. Patient presented with cough, congestion. Patient evaluated in the hospital. Chest x-ray unremarkable for pneumonia. Pro calcitonin negative. White count negative. Strep test and influenza test also negative. Patient likely with viral upper respiratory infection. Patient also found to have UTI. Yeast was also noted. Patient did well in his stay. at discharge patient will continue with Augmentin 500 mg 1 pill twice daily for 7 days. Patient will also be given Diflucan 100 mg once daily for 5 days. Patient will be provided Tessalon Perles 100 mg 1 pill 3 times a day as needed for cough and Mucinex 600 mg twice daily as needed for congestion. Recommendation is for the patient to follow up with his PCP within 1 week to follow up urine culture results. Patient may require repeat chest x- ray in the future if congestion persists. 3. Patient with chronic renal disease stage II. This has remained stable. Recommend for patient to follow up with nephrology in outpatient to further monitor. Recommend to recheck lab- BMP in 1-2 weeks to monitor stability. Recommend no further use of nonsteroidal anti-inflammatories. Future medications will need to be renally dosed. 4. Patient with chronic systolic CHF and CAD. This has remained stable. Patient will continue with a 1500 cc per day fluid restriction and low- salt diet. Patient may follow up with cardiology as directed. Patient may require diuretic therapy in the future if with increase edema and shortness of breath. Patient will continue with aspirin 81 mg daily. 5. Patient has hypertension. This has remained stable. At discharge patient will continue with carvedilol 6.25 mg 1 pill twice daily and losartan 50 mg 1 pill daily. Recommendation is to maintain blood pressures less 150/80. Further adjustment can be done by his PCP. 6. Patient has diabetes mellitus type 2, insulin dependent. This has remained stable. At discharge patient will continue with Tresiba 20 units subcu daily, glipizide 10 mg 1 pill twice daily and metformin 500 mg 1 pill twice daily. Recommendation is to maintain blood sugars less 140 fasting and less than 200 per meals. Further adjustment can be done by his PCP. 7. Patient has BPH. Patient will continue with Proscar 5 mg daily and Flomax 0.4 mg daily. Patient may follow up with urology as directed. 8. Patient has hypothyroidism. Patient will continue with Cytomel 25 mcg daily. 9. Patient has hyperlipidemia. Patient will continue with Lipitor 40 mg daily. 10. Patient reports loss of over the last year. Patient may benefit with grief counseling. This can be further addressed by his PCP. Diet: ADA Activity: Fall precautions Time spent managing pt's care (in minutes): 55
[2018-04-14 12:04] VITALS: O2SAT 97
[2018-04-14 13:48] VITALS: BP 129/65; TEMP 98.3
[2018-04-14] MEDS ORDERED: ATORVASTATIN 40 MG TAB PO SCH (21:00)
[2018-04-15] MEDS ORDERED: FLUCONAZOLE 200mg IVPB 200 MG/100 ML BAG IV SCH (02:00)
== END 2018-04-14 14:04 | disposition home or self-care (01) ==
LOC: ER 21:03 → INTOOBSV 04-14 00:43 → ERHOLD 04-14 00:43 → 2ND 04-14 01:06
PROVIDERS: ADMIT Internal Medicine; ATTEND Internal Medicine
DX: N39.0 Urinary tract infection, site not specified (principal); B37.49 Other urogenital candidiasis; J06.9 Acute upper respiratory infection, unspecified; I13.0 Hypertensive heart and chronic kidney disease with heart failure and stage 1 through stage 4 chronic kidney disease, or unspecified chronic kidney disease; E11.22 Type 2 diabetes mellitus with diabetic chronic kidney disease; N18.3 Chronic kidney disease, stage 3 (moderate); I50.22 Chronic systolic (congestive) heart failure; I25.10 Atherosclerotic heart disease of native coronary artery without angina pectoris; G47.00 Insomnia, unspecified; E03.9 Hypothyroidism, unspecified; N40.0 Benign prostatic hyperplasia without lower urinary tract symptoms; Z89.512 Acquired absence of left leg below knee; F43.20 Adjustment disorder, unspecified; E78.5 Hyperlipidemia, unspecified; Z23 Encounter for immunization
CPT/HCPCS: 36415; 71045; 80048; 80076; 81003; 81015; 82962; 83605; 83735; 83880; 84145; 85025; 85610; 87040; 87070; 87081; 87086; 87088; 87804; 99285; G0008; G0378; J0696; J1450; J1650; J1940; Q2035

== ENCOUNTER 2019-05-26 19:59 | Inpatient (IN) | payer BC ==
[2019-05-26 21:08] LABS: Absolute Lymphocytes (CBC) 1.3 K/uL (0.7-4.9); Basophils % 0.6 % (0-1.3); Hematocrit 41.9 % (39.6-49.0); Lymphocytes % 17.6 % (15.3-44.8); MPV 7.6 fL (7.6-11.3); RBC Red Blood Cell Count 4.84 M/uL (4.33-5.43)
[2019-05-26 21:11] LABS: Protime INR 1.04
[2019-05-26 21:40] LABS: Albumin 3.7 g/dL (3.4-5.0); Bilirubin Direct 0.2 mg/dL (0-0.2); Bilirubin Total 0.8 mg/dL (0.2-1.0); Potassium 4.4 mmol/L (3.5-5.1); Protein, Total 7.9 g/dL (6.4-8.2)
[2019-05-26 21:41] LABS: Magnesium 2.4 mg/dL (1.8-2.4); Troponin (Emerg Dept Use Only) 0.02 ng/mL (0.0-0.045)
[2019-05-26 21:44] LABS: CKMB Creatine Kinase MB 10.9 ng/mL (0.3-3.6)
--- NOTE | 2019-05-26 21:56 | ER ---
Nurse's Notes [facility] Name: Navjot Collins Age: 74 yrs Sex: Male : 1945 Arrival Date: 05/26/2019 Time: 20:02 Bed 27 Private MD: Diagnosis: Persistent atrial fibrillation;Unspecified atrial fibrillation Presentation: 05/25 20:22 Chief complaint: Patient states: STARTED THURSDAY MORNING WITH CHILLS, FEVER, BODY ACHE, rv DRY COUGH. HAVE BEEN TAKING OTC DRUGS WHICH HELPED, AND ABLE TO GO TO WORK. THURSDAY FELT BETTER, THURSDAY DRY COUGH STARTING TO BEING A WET COUGH. Coronavirus screen: The patient has NOT traveled to a country currently being monitored by the [facility] within the last 14 days. Proceed with normal triage procedures. The patient has NOT had contact with any known and/or suspected case of coronavirus. Proceed with normal triage procedures. Ebola Screen: No symptoms or risks identified at this time. Initial Sepsis Screen: Does the patient meet any 2 criteria? No. Patient's initial sepsis screen is negative. Does the patient have a suspected source of infection? No. Patient's initial sepsis screen is negative. Risk Assessment: Do you want to hurt yourself or someone else? Patient reports no desire to harm self or others. 20:22 Method Of Arrival: Ambulatory rv 20:22 Acuity: ZENAIDA 3 rv 20:28 Onset of symptoms was May 23, 2019 at 08:00. rv Triage Assessment: 20:27 Respiratory: Reports cough that is Onset: The symptoms/episode began/occurred THURSDAY, rv the patient has mild shortness of breath. Historical: - Allergies: 20:26 Codeine; rv 20:26 Demerol; rv 20:26 fedrazil; rv 20:26 Vicodin; rv - Home Meds: 20:26 glipizide 10 mg Oral tab 1 tab 2 times per day [Active]; metformin 500 mg Oral tab 1 rv tab 2 times per day [Active]; Tresiba FlexTouch U-100 100 unit/mL (3 mL) subcutaneous inpn [Active]; - PMHx: 20:26 CHF; Diabetes - IDDM; HTN; PROSTATE CA; rv - PSHx: 20:26 PROSTATE AND BLADDER SX; BKA; CABG; rv - Immunization history:: Adult Immunizations up to date. - Social history:: Smoking status: Patient denies any tobacco usage or history of. Screenin:27 Abuse screen: Denies threats or abuse. Denies injuries from another. Nutritional rv screening: No deficits noted. Tuberculosis screening: No symptoms or risk factors identified. Fall Risk None identified. Assessment: 20:27 General: Appears in no apparent distress. Behavior is calm, cooperative. Pain: Denies rv pain. Neuro: Level of Consciousness is awake, alert, obeys commands, Oriented to person, place, time, situation. Cardiovascular: Patient's skin is warm and dry. Rhythm is regular. Respiratory: Airway is patent Respiratory effort is even, Breath sounds are clear bilaterally. Derm: Skin is intact. 22:12 Reassessment: Patient appears in no apparent distress at this time. Patient and/or rv family updated on plan of care and expected duration. Pain level reassessed. Patient is alert, oriented x 3, equal unlabored respirations, skin warm/dry/pink. DR DOS SANTOS EXPLAINED THE TEST RESULTS AND THE PLAN OF CARE. PATIENT UNDERSTOOD AND AGREED. AWAITING ADMISSION ORDERS. Vital Signs: 20:22 BP 122 / 68; Pulse 88; Resp 19; Temp 97.6; Pulse Ox 100% ; Weight 97.52 kg; Height 6 rv ft. 2 in. (187.96 cm); Pain 0/10; 22:00 BP 96 / 53; Pulse 89; Resp 17; Pulse Ox 98% on R/A; rv 22:40 BP 106 / 85; Pulse 97; Resp 16; Temp 97.6; Pulse Ox 97% on R/A; Pain 0/10; rv 20:22 Body Mass Index 27.60 (97.52 kg, 187.96 cm) rv Vitals: 22:41 Cardiac Rhythm Assessment Atrial fibrillation. rv Lomira Coma Score: 22:41 Eye Response: spontaneous(4). Verbal Response: oriented(5). Motor Response: obeys rv commands(6). Total: 15. ED Course: 20:02 Patient arrived in ED. cl3 20:09 Naresh Hoover, JUDE is Primary Nurse. rv 20:22 Mekhi Dos Santos MD is Attending Physician. tw4 20:25 Triage completed. rv 20:27 Arm band placed on Patient placed Patient notified of wait time. rv 20:28 Patient has correct armband on for positive identification. Pulse ox on. NIBP on. rv 20:41 XRAY CXR (1 view) In Process Unspecified. EDMS 20:50 Inserted saline lock: 20 gauge in right antecubital area, using aseptic technique. rv Blood collected. 20:50 Initial lab(s) drawn, by me, sent to lab. First set of blood cultures drawn by me. rv 21:44 Notified ED physician of a critical lab result(s). CKMB 10.9 Dr Dos Santos notified. bb 21:55 Bharti Mclaughlin MD is Hospitalizing Provider. tw4 22:41 No provider procedures requiring assistance completed. IV is intact, with fluids rv infusing freely, with good blood return, Patient admitted, IV remains in place. Administered Medications: No medications were administered Outcome: 21:56 Decision to Hospitalize by Provider. tw4 22:42 Admitted to Tele accompanied by tech, via wheelchair, room 429, with chart, Report rv called to NURIA ROQUE 22:42 Condition: good 22:42 Discharge instructions given to patient, Instructed on the need for admit, Demonstrated understanding of instructions. 22:53 Patient left the ED. mg2 Signatures: Dispatcher [employer] EDSarai Oliveros RN RN bb Mekhi Dos Santos MD MD tw4 Titi Miller RN RN mg2 Naresh Hoover RN RN rv Maxim Tovar cl3 Corrections: (The following items were deleted from the chart) 20:29 20:22 Acuity: ZENAIDA 4 rv rv
--- NOTE | 2019-05-26 21:57 | EDPHYS ---
Physician Documentation [facility] Name: Navjot Collins Age: 74 yrs Sex: Male : 1945 Arrival Date: 05/26/2019 Time: 20:02 Bed 27 Private MD: ED Physician Mekhi Sandhu HPI: 05/26 03:30 This 74 yrs old Male presents to ER via Ambulatory with complaints of tw4 Productive Cough. 03:30 The patient or guardian reports cough. Onset: The symptoms/episode began/occurred tw4 today. Severity of symptoms: At their worst the symptoms were moderate, in the emergency department the symptoms are unchanged. The patient has not experienced similar symptoms in the past. Historical: - Allergies: 05/25 20:26 Codeine; rv 20:26 Demerol; rv 20:26 fedrazil; rv 20:26 Vicodin; rv - Home Meds: 20:26 glipizide 10 mg Oral tab 1 tab 2 times per day [Active]; metformin 500 mg Oral tab 1 rv tab 2 times per day [Active]; Tresiba FlexTouch U-100 100 unit/mL (3 mL) subcutaneous inpn [Active]; - PMHx: 20:26 CHF; Diabetes - IDDM; HTN; PROSTATE CA; rv - PSHx: 20:26 PROSTATE AND BLADDER SX; BKA; CABG; rv - Immunization history:: Adult Immunizations up to date. - Social history:: Smoking status: Patient denies any tobacco usage or history of. ROS: 05/26 03:30 Constitutional: Negative for fever, chills, and weight loss, Eyes: Negative for injury, tw4 pain, redness, and discharge, ENT: Negative for injury, pain, and discharge, Cardiovascular: Negative for chest pain, palpitations, and edema, Abdomen/GI: Negative for abdominal pain, nausea, vomiting, diarrhea, and constipation, Back: Negative for injury and pain, MS/Extremity: Negative for injury and deformity, Skin: Negative for injury, rash, and discoloration. Respiratory: Positive for cough, with no reported sputum, Negative for dyspnea on exertion, hemoptysis, orthopnea, shortness of breath, sputum production. Exam: 03:30 Constitutional: This is a well developed, well nourished patient who is awake, alert, tw4 and in no acute distress. Head/Face: Normocephalic, atraumatic. Chest/axilla: Normal chest wall appearance and motion. Nontender with no deformity. No lesions are appreciated. Cardiovascular: Regular rate and rhythm with a normal S1 and S2. No gallops, murmurs, or rubs. Normal PMI, no JVD. No pulse deficits. Abdomen/GI: Soft, non-tender, with normal bowel sounds. No distension or tympany. No guarding or rebound. No evidence of tenderness throughout. Back: No spinal tenderness. No costovertebral tenderness. Full range of motion. Skin: Warm, dry with normal turgor. Normal color with no rashes, no lesions, and no evidence of cellulitis. 03:30 Respiratory: the patient does not display signs of respiratory distress, Respirations: normal, Breath sounds: no acute changes. Vital Signs: 05/25 20:22 BP 122 / 68; Pulse 88; Resp 19; Temp 97.6; Pulse Ox 100% ; Weight 97.52 kg; Height 6 rv ft. 2 in. (187.96 cm); Pain 0/10; 22:00 BP 96 / 53; Pulse 89; Resp 17; Pulse Ox 98% on R/A; rv 22:40 BP 106 / 85; Pulse 97; Resp 16; Temp 97.6; Pulse Ox 97% on R/A; Pain 0/10; rv 20:22 Body Mass Index 27.60 (97.52 kg, 187.96 cm) rv Gerda Coma Score: 22:41 Eye Response: spontaneous(4). Verbal Response: oriented(5). Motor Response: obeys rv commands(6). Total: 15. MDM: 20:22 Patient medically screened. tw4 05/26 03:41 Differential Diagnosis: Obstructed Airway Bronchitis Influenza. Data reviewed: vital tw4 signs, nurses notes. Data interpreted: Pulse oximetry: Interpretation: normal. Counseling: I had a detailed discussion with the patient and/or guardian regarding: the historical points, exam findings, and any diagnostic results supporting the discharge/admit diagnosis. Physician consultation: Bharti Mclaughlin MD regarding admission, to the telemetry unit. patient's condition, and will see patient in ED. Special discussion: I discussed with the patient/guardian in detail that at this point there is no indication for admission to the hospital. It is understood, however, that if the symptoms persist or worsen the patient needs to return immediately for re-evaluation. 05/25 20:26 Order name: Blood Culture Adult (2) 05/25 20:26 Order name: BMP; Complete Time: 21:46 05/25 21:46 Interpretation: Normal except: GLUC 149; CRE 1.58; GFR 43; BUN 34. 05/25 20:26 Order name: CBC with Diff; Complete Time: 21:44 05/25 21:46 Interpretation: Within normal limits. 05/25 20:26 Order name: Ckmb; Complete Time: 21:46 05/25 21:46 Interpretation: Normal except: CKMB 10.9. 05/25 20:26 Order name: CPK; Complete Time: 21:47 05/25 21:47 Interpretation: Within normal limits: CPK 204. 05/25 20:26 Order name: Hepatic Function; Complete Time: 21:46 05/25 21:46 Interpretation: Normal except: ALK 132; GLOB 4.2; A/G 0.9. 05/25 20:26 Order name: Lipase; Complete Time: 21:47 05/25 21:47 Interpretation: Within normal limits: LIP 141. 05/25 20:26 Order name: Magnesium; Complete Time: 21:47 05/25 21:47 Interpretation: Within normal limits: MG 2.4. 05/25 20:26 Order name: NT PRO-BNP; Complete Time: 21:47 05/25 21:47 Interpretation: Normal except: NT PRO-BNP 2696. 05/25 20:26 Order name: PT-INR; Complete Time: 21:44 05/25 21:47 Interpretation: Within normal limits: PT 12.2. 05/25 20:26 Order name: Ptt, Activated; Complete Time: 21:44 05/25 21:47 Interpretation: Within normal limits: PTT 33.8. 05/25 20:26 Order name: Troponin (emerg Dept Use Only); Complete Time: 21:47 05/25 21:47 Interpretation: Within normal limits: TROPED 0.02. 05/25 20:30 Order name: Flu rv 05/25 22:10 Order name: Magnesium EDOH 05/25 20:26 Order name: XRAY CXR (1 view) tw 05/25 20:26 Order name: EKG; Complete Time: 20:28 tw4 05/25 20:26 Order name: Cardiac monitoring; Complete Time: 20:57 tw4 05/25 20:26 Order name: EKG - Nurse/Tech; Complete Time: 20:57 tw 05/25 20:26 Order name: IV Saline Lock; Complete Time: 20:57 tw4 05/25 20:26 Order name: Labs collected and sent; Complete Time: 20:57 tw 05/25 20:26 Order name: O2 Per Protocol; Complete Time: 20:58 tw 05/25 20:26 Order name: O2 Sat Monitoring; Complete Time: 20:58 tw 05/25 22:09 Order name: CONS Pharmacy Consult EDOH 05/25 22:10 Order name: CONS Physician Consult; Complete Time: 22:16 EDOH 05/25 22:10 Order name: Echo with Doppler EDOH 05/25 22:10 Order name: Thyroid Stimulating Hormone EDOH 05/25 22:39 Order name: CONS Physician Consult EDOH EC:30 Rate is 84 beats/min. Rhythm is irregularly irregular, A fib. PA interval is normal. tw4 QRS interval is normal. QT interval is normal. No ST changes noted. Clinical impression: Atrial Fibrillation. Interpreted by me. Reviewed by me. Administered Medications: No medications were administered Disposition: 05/26/19 21:56 Hospitalization ordered by Bharti Mclaughlin for Inpatient Admission. Preliminary diagnosis are Persistent atrial fibrillation, Unspecified atrial fibrillation. - Bed requested for Telemetry/MedSurg (Inpatient). - Status is Inpatient Admission. mg2 - Condition is Stable. - Problem is new. - Symptoms have improved. Signatures: Dispatcher [employer] EDOH Charlotte Amaya, RN RN Mekhi Sandhu MD MD tw4 Titi Miller RN RN mg2 Naresh Hoover RN RN rv Corrections: (The following items were deleted from the chart) 05/25 22:18 21:56 Hospitalization Ordered by Bharti Mclaughlin MD for Inpatient Admission. Preliminary cg diagnosis is Persistent atrial fibrillation; Unspecified atrial fibrillation. Bed requested for Telemetry/MedSurg (Inpatient). Status is Inpatient Admission. Condition is Stable. Problem is new. Symptoms have improved. tw4 22:53 22:18 05/26/2019 21:56 Hospitalization Ordered by Bharti cMlaughlin MD for Inpatient mg2 Admission. Preliminary diagnosis is Persistent atrial fibrillation; Unspecified atrial fibrillation. Bed requested for Telemetry/MedSurg (Inpatient). Status is Inpatient Admission. Condition is Stable. Problem is new. Symptoms have improved. cg
[2019-05-26] MEDS ORDERED: MORPHINE 2 MG/ML SYR IV PRN (22:03)
[2019-05-26] MEDS ORDERED: ONDANSETRON 4 MG/2 ML VIAL IV PRN (22:03)
[2019-05-26] MEDS ORDERED: ALBUTEROL 2.5 MG/3 ML NEB SOL NEB PRN ×2 (22:03→22:05)
[2019-05-26] MEDS ORDERED: FUROSEMIDE 40 MG/4 ML VIAL IV ONE (22:05)
[2019-05-26] MEDS: guaiFENesin 100 MG/5 ML UCUP PO PRN (23:40)
[2019-05-26 23:58] LABS: Magnesium 2.3 mg/dL (1.8-2.4); Thyroid Stimulating Hormone 0.891 uIU/mL (0.360-3.740)
--- NOTE | 2019-05-27 00:20 | HP ---
Date of Admission: 05/26/2019 Presenting Complaint: Fatigue, body weakness, and exertional dyspnea. History Of Present Illness: A 74-year-old male with past medical history of hypertension, diabetes mellitus, hyperlipidemia, hypothyroidism, CAD status post CABG in 2017, follows with Dr. Harry for history of PVD, status post left BKA in 2016, who presented today because of fatigue. The p atient describes nasal congestion and cough 1 week ago that has since resolved, but he continued to h ave feeling of wellness as well as fatigue since the last 5 days. He has left work today feeling aimee y tired and has presented to the ED. In the ED, he was noted with EKG finding of atrial fibrillation with rate control at 83 beats per minute. Patient denies any chest pain. He denies any palpitation s or fluttering of the heart. He initially denies history of atrial fibrillation in the past, but marisol gutierrez recalled he was on Eliquis for a period of 1 year after which he was taken off for cardiac arrhyt hmia 2 years ago. He states he has followed with Dr. Kelley since then and is scheduled for a stres s test. His initial troponin was negative, but his CK was mildly elevated. Patient denies any alcoh ol or tobacco use. He denies any new medication changes. He states his losartan and aspi rin. In the ED, his blood pressure has been ranging in the upper 90s to low 100 systolic. The patie nt is a poor historian and it was difficult getting history from him, but later admits to being on le vothyroxine, but unsure of dose. Past Medical History: Hypertension, hyperlipidemia, diabetes mellitus, relatively uncontrolled. He states his last A1c was greater than 12.4. Hypomagnesemia, coronary artery disease status post CABG, prostate cancer, history of CHF with self-reported last ejection fraction of 40%. Past Surgical History: Left BKA, CABG, prostate and bladder surgery. Home Medications: Tresiba, glipizide, losartan 50 daily, and aspirin. The patient did not come with full list. These as self-reported by him. Levothyroxine unknown dose and magnesium tablet unknown dose. Allergies: CODEINE, DEMEROL, , AND VICODIN. Family History: Significant for coronary artery disease. Social History: The resides in the community, is fully functional. 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 Review of Systems: All other systems reviewed x14 were negative. Physical Examination: Vital Signs: Blood pressure currently 110/65, pulse of 76, respiratory rate of 18, O2 saturation of 100% on room air, temperature, afebrile 98.7. General: Elderly male, calm, sitting up in bed. Head: Atraumatic, normocephalic. Pupils equal and reactive to light. Anicteric. Moist oral mucosa . Neck: No JVD. No carotid bruit. Respiratory: Good air entry. No crepitation. Left sternotomy scar in situ. Cardiovascular: S1, S2. Irregular rhythm. No murmur. No S3 noted. GI: Abdomen full, soft. Bowel sounds positive. No organomegaly. Extremities: Left BKA. Right lower extremity with 1+ pedal edema. Hands; marked Dupuytren contract ures with interossei muscle wasting of bilateral hands. Neuro: Patient is alert, oriented. Cranial nerves 2 through 12 grossly intact. Laboratory Data: EKG; atrial fibrillation at 84 beats per minute. No ST-segment changes. Potassium 4.4, BUN 34, creatinine 1.5, magnesium 2.4, alkaline phosphatase 132. CK 204, CK-MB 10.9, troponin 0.02. ProBNP of 2696, lipase 146, hemoglobin 14, platelet 265. INR 1.04. Chest x-ray shows mild pu lmonary congestive changes. Impression: 1.Recurrent atrial fibrillation. 2.Mild systolic congestive heart failure exacerbation. 3.Hypertension, controlled. 4.Diabetes mellitus. 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 6.Presumed hypothyroidism. 7.Presumed hypomagnesemia. Plan: 1.We will admit patient to observation. We will place patient on telemetry monitoring. We will do serial set of cardiac enzymes. We will consult Cardiology in a.m. We will obtain echo given new ons et atrial fibrillation. We will give patient Lasix 40 mg x1 now. Patient may need p.o. diuretic if not already on it when home medications are reviewed. We will do insulin sliding scale with Accu-Mery ks. Given new onset atrial fibrillation, risk of CVA has been discussed with patient. We will start patient on low-dose Eliquis. We will obtain magnesium and TSH. Pending patient home med list, we w ill start patient on empirical magnesium at TSH doses. Mild creatinine elevation may be due to chron ic kidney disease. We will monitor. We will consult Nephrology for outpatient followup. 2.Deep venous thrombosis prophylaxis, patient is on Eliquis. 3.Advanced directives, patient is full code. Total time spent in evaluation and discussion with patient and review greater than 60 minutes. EO/MODL Voice ID: [id number]
[2019-05-27] MEDS: LORAZEPAM 0.5 MG TABLET PO PRN ×2 (02:27→22:36)
[2019-05-27] MEDS: LEVOTHYROXINE SOD 0.025 MG TAB PO SCH (05:31)
[2019-05-27 06:09] LABS: Absolute Lymphocytes (CBC) 1.3 K/uL (0.7-4.9); Basophils % 0.6 % (0-1.3); Lymphocytes % 13.1 % (15.3-44.8); MPV 7.6 fL (7.6-11.3); RBC Red Blood Cell Count 4.28 M/uL (4.33-5.43)
[2019-05-27 06:18] LABS: Albumin 3.3 g/dL (3.4-5.0); Bilirubin Total 0.6 mg/dL (0.2-1.0); CKMB Creatine Kinase MB 8.2 ng/mL (0.3-3.6); Potassium 4.2 mmol/L (3.5-5.1); Protein, Total 6.9 g/dL (6.4-8.2); Troponin I 0.04 ng/mL (0.0-0.045)
[2019-05-27] MEDS: BENZONATATE 100 MG CAP PO PRN ×3 (06:36→20:16)
[2019-05-27] MEDS: INSULIN -REGULAR HUMAN 50 UNIT/0.5 ML ML SQ SCH ×4 (07:30→20:21)
[2019-05-27] MEDS: PANTOPRAZOLE 40MG TABLET PO SCH ×2 (07:39→17:13)
[2019-05-27] MEDS: MAGNESIUM OXIDE 400 MG TAB PO SCH ×2 (07:40→20:20)
[2019-05-27] MEDS ORDERED: SOTALOL HCL 80 MG TAB PO ONE (07:57)
[2019-05-27] MEDS ORDERED: PNEUMOCOCCAL VACCINE 0.5 ML IMVAC ONE (08:00)
--- NOTE | 2019-05-27 08:22 | RAD REPORT ---
EXAM DESCRIPTION: Marisol Single View05/26/2019 8:38 pm CLINICAL HISTORY: Cough COMPARISON: 2019 FINDINGS: The lungs appear clear of acute infiltrate. The heart is mildly to moderately enlarged. Postsurgical changes involve the chest. IMPRESSION: No acute abnormalities displayed
[2019-05-27] MEDS ORDERED: APIXABAN 2.5 MG TABLET PO SCH (09:00)
[2019-05-27] MEDS: FUROSEMIDE 40 MG TABLET PO SCH (09:16)
[2019-05-27] MEDS: APIXABAN 5 MG TABLET PO SCH ×2 (09:16→20:16)
[2019-05-27] MEDS: NITROGLYCERIN 0.2 MG/HR (5 MG) PATCH TD SCH (09:19)
--- NOTE | 2019-05-27 12:15 | CON ---
Identification: 74-year-old man. Chief Complaint: Symptoms of cold and flu and dyspnea. Reason For Consult: Atrial fibrillation. History Of Present Illness: Mr. Collins is a gentleman, who has prior bypass surgery, prior left below- the-knee amputation. He has had about a week of upper respiratory viral illness type symptoms, came to the ER because he was coughing more instead of less and was found to be in atrial fibrillation. T he patient was treated for atrial fibrillation for several years following a surgery. He was in atri al fibrillation briefly following surgery, but several years ago amiodarone and Eliquis were both sto pped. He has had no atrial fibrillation for the past couple of years. He is not really aware of his heart beating irregularly. His chest x-ray looks like there is pulmonary edema. There is no radiol ogy report and may be a left pleural effusion as well. Medications: The patient's outpatient medications; Coreg, finasteride, liothyronine, tamsulosin, los shelly, vitamin C, atorvastatin, glipizide, insulin, aspirin, bumetanide, cinnamon bark, famotidine, z inc, and magnesium oxide. Allergies: HE IS ALLERGIC TO MEPERIDINE, PSEUDOEPHEDRINE, ACETAMINOPHEN, AND CODEINE. Social History: He smoked cigarettes remotely, none in several years. His bypass surgery was Eliseo koehler in 2016. Physical Examination: General: He is 6 feet 2 inches, 211 pounds. HEENT: Normal. Lungs: Clear. Heart: Abnormal with rapid regular heartbeat. It is going about 109 beats per minute on telemetry. I am concerned that it is probably atrial flutter. He is not in atrial fibrillation now. Laboratory Data: His laboratory exam does not reveal elevated troponin. His complete blood count wa s normal. Creatinine 1.54. Glomerular filtration rate 45, blood sugars 149 to 128 and troponins are normal. Patient is known to have an ejection fraction that is mildly depressed in the range of 45%. Impression: The patient is probably still in flutter. He is in mild volume overload heart failure. He will get diuresis, anticoagulation with Eliquis, and the correct dose would be 5 mg twice a day a nd we will start Betapace, stop the Coreg, consider doing a cardioversion if he is still in atrial fl utter tomorrow. SH/MODL Voice ID: [id number] Report ID: [id number]
--- NOTE | 2019-05-27 13:28 | ECHO ---
HEIGHT: 6 ft 2 in WEIGHT: 211 lb 0 oz DATE OF STUDY: 05/27/[address]: Bharti Mclaughlin MD 2-DIMENSIONAL: YES M.MODE: YES DOPPLER: YES COLOR FLOW: YES TDS: NO PORTABLE: NO DEFINITY: NO BUBBLE STUDY: NO DIAGNOSIS: ATRIAL FIBRILLATION CARDIAC HISTORY: CATHERIZATION: YES SURGERY: YES PROSTHETIC VALVE: NO PACEMAKER: NO MEASUREMENTS (cm) DIASTOLIC (NORMALS) SYSTOLIC (NORMALS) IVSd 1.2 (0.6-1.2) LA Diam 3.8 (1.9-4.0) LVEF 40-45% LVIDd 4.6 (3.5-5.7) LVIDs 4.1 (2.0-3.5) %FS 12% LVPWd 1.1 (0.6-1.2) Ao Diam 3.2 (2.0-3.7) 2 DIMENSIONAL ASSESSMENT: RIGHT ATRIUM: NORMAL LEFT ATRIUM: DILATED RIGHT VENTRICLE: NORMAL LEFT VENTRICLE: LEFT VENTRICULAR HYPERTROPHY TRICUSPID VALVE: NORMAL MITRAL VALVE: NORMAL PULMONIC VALVE: NORMAL AORTIC VALVE: NORMAL PERICARDIAL EFFUSION: NONE AORTIC ROOT: NORMAL LEFT VENTRICULAR WALL MOTION: PARADOXICAL SEPTAL MOTION. DOPPLER/COLOR FLOW: TRACE OF AORTIC REGURGITATION. COMMENTS: DEPRESSED LEFT VENTRICULAR EJECTION FRACTION WITH PARADOXICAL SEPTAL MOTION. DILATED LEFT ATRIUM. LEFT VENTRICULAR HYPERTROPHY. TECHNOLOGIST: ADONIS LINDQUIST
--- NOTE | 2019-05-27 13:44 | EKG ---
Test Date: 2019-05-27 Test Time: 08:18:29 Shoe Worker: XIANG MEASUREMENT RESULTS: Intervals: Rate: 96 OR: 226 QRSD: 114 QT: 360 QTc: 454 [place]: P: 51 OR: 226 QRS: 98 T: -15 INTERPRETIVE STATEMENTS: Sinus rhythm with 1st degree AV block Rightward axis T wave abnormality, consider inferior ischemia Abnormal ECG Compared to ECG 05/26/2019 20:39:04 First degree AV block now present Possible ischemia now present Atrial fibrillation no longer present T-wave abnormality still present Electronically Signed On 05-27-19 13:43:31 SHIP KEEPER by Cristino Ellis
--- NOTE | 2019-05-27 13:45 | EKG ---
Test Date: 2019-05-26 Test Time: 20:39:04 Doughmaker: RV MEASUREMENT RESULTS: Intervals: Rate: 84 [place]: QRSD: 114 QT: 388 QTc: 458 [place]: P: [place]: QRS: 95 T: -65 INTERPRETIVE STATEMENTS: Atrial fibrillation Rightward axis Nonspecific T wave abnormality Abnormal ECG Compared to ECG 10/29/2017 08:47:24 Sinus rhythm no longer present Possible ischemia no longer present Prolonged QT interval no longer present T-wave abnormality still present Electronically Signed On 05-27-19 13:43:53 FINISH REPAIR WORKER by Cristino Ellis
--- NOTE | 2019-05-27 15:32 | P.CNS ---
Date of Consult: 05/27/19 Reason for Consult: CKD Requesting Physician: Bharti Mclaughlin Chief Complaint: Fatigue History of Present Illness: 74 yo WM HTN, DM presented to the ER with several days of moderate, progressive fatigue with associated cough and congestion. Feels like he is fighting a viral syndrome. Denies any history of CKD. Denies excessive NSAIDs. No difficulty with urination. Reports a history of prostate cancer sp resection by Dr. Farley. Allergies meperidine [From Demerol] Allergy (Verified 04/14/18 01:48) Unknown pseudoephedrine Allergy (Verified 04/14/18 01:48) Hives acetaminophen [From Vicodin] Adverse Reaction (Verified 05/26/19 23:06) Nausea/Vomiting codeine Adverse Reaction (Verified 05/26/19 23:06) Nausea/Vomiting hydrocodone bitartrate [From Vicodin] Adverse Reaction (Verified 05/26/19 23:06) Nausea/Vomiting fedrazil Allergy (Mild, Uncoded 04/14/18 01:48) Unknown Home medications list reviewed: Yes Home Medications: Aspirin 81 mg PO DAILY 04/14/18 Atorvastatin Calcium 40 mg PO DAILY 04/14/18 Finasteride [Proscar*] 5 mg PO DAILY 04/14/18 Insulin Degludec [Tresiba Flextouch U-200] 40 units SQ DAILY 04/14/18 Liothyronine [Cytomel*] 1 tab PO DAILY 04/14/18 Losartan Potassium [Cozaar*] 50 mg PO DAILY 04/14/18 Tamsulosin HCl 0.4 mg PO DAILY 04/14/18 Vit C/Ascorb Sod/Multivit-Min [Emergen-C 500 mg Chewable Tab] 1,000 mg PO DAILY 04/14/18 carvediloL [Coreg*] 6.25 mg PO BID 04/14/18 glipiZIDE [Glucotrol] 10 mg PO BID 04/14/18 Bumetanide [Bumex] 1 mg PO DAILY 06/24/18 Cinnamon Bark [Cinnamon] 500 mg PO BID 06/24/18 Famotidine 1 tab PO DAILY 05/26/19 Magnesium Oxide [Magnesium] 1 tab PO BID 05/26/19 Zinc 1 tab PO DAILY 05/26/19 - Past Medical/Surgical History Diabetic: Yes -: diabetes -: hypertention -: CAD -: chronic systolic CHF -: carotid stent -: CABG quintup2016 -: BKA left leg -: Prostate surgery -: bladder surgery -: skin graft - Family History Father Medical History: Heart disease Mother Medical History: Lung disease Notes: COPD, leaking heart valve, emphysema - Social History Smoking Status: Never smoker Alcohol use: No CD- Drugs: No Caffeine use: No Place of Residence: Home Review of Systems 10-point ROS is otherwise unremarkable General: Weakness, Malaise Respiratory: Cough Neurological: Weakness Physical Examination Temp Pulse Resp BP Pulse Ox 98.5 F 85 20 100/54 L 97 05/27/19 12:00 05/27/19 12:00 05/27/19 12:00 05/27/19 12:00 05/27/19 12:00 General: In no apparent distress, Oriented x3, Cooperative HEENT: Atraumatic Neck: Supple Respiratory: Clear to auscultation bilaterally Cardiovascular: No edema, Regular rate/rhythm Gastrointestinal: Soft and benign, Non-distended Musculoskeletal: No clubbing, No contractures Integumentary: No rashes, No cyanosis Neurological: Normal speech Laboratory Data (last 24 hrs) 05/27/19 05:46: Sodium 139, Potassium 4.2, BUN 35 H, Creatinine 1.54 H, Glucose 135 H, Total Bilirubin 0.6, AST 23, ALT 28, Alkaline Phosphatase 110, Troponin I 0.04 05/27/19 05:46: WBC 10.1 D, Hgb 12.8 L, Hct 37.0 L, Plt Count 269 05/26/19 23:20: Magnesium 2.3 05/26/19 20:50: PT 12.2, INR 1.04, APTT 33.8 05/26/19 20:50: WBC 7.5, Hgb 14.0, Hct 41.9, Plt Count 265 05/26/19 20:50: Sodium 138, Potassium 4.4, BUN 34 H, Creatinine 1.58 H, Glucose 149 H, Magnesium 2.4, Total Bilirubin 0.8, AST 24, ALT 32, Alkaline Phosphatase 132 H, Lipase 141 Imagings Data: EXAM DESCRIPTION: Marisol Single View05/26/2019 8:38 pm CLINICAL HISTORY: Cough COMPARISON: 2019 FINDINGS: The lungs appear clear of acute infiltrate. The heart is mildly to moderately enlarged. Postsurgical changes involve the chest IMPRESSION: No acute abnormalities displayed LEFT VENTRICULAR WALL MOTION: PARADOXICAL SEPTAL MOTION. DOPPLER/COLOR FLOW: TRACE OF AORTIC REGURGITATION. COMMENTS: DEPRESSED LEFT VENTRICULAR EJECTION FRACTION WITH PARADOXICAL SEPTAL MOTION. DILATED LEFT ATRIUM. LEFT VENTRICULAR HYPERTROPHY. LVEF 40-45% Conclusions/Impression: A/ CKD III in the setting of DM & HTN. Hypocalcemia. Systolic CHF, chronic. HTN with CKD/ CHF. DM II with CKD. BPH with LUTS. P/ Continue current POC and Medications. Continue Lasix. Start Vitamin D. Counseled regarding CKD. No NSAIDs. AM labs. Daily weight. Thank you kindly for the consultation.
--- NOTE | 2019-05-27 16:35 | PN ---
Date of Progress Note: 05/27/2019 Code Status: Full. Medications: List reviewed. Subjective: Patient seen and examined. Chart reviewed and case discussed with RN. Patient seems to be doing better, currently on Betapace. No acute events overnight. Physical Examination: Vital Signs: Temperature 98.7, heart rate 105, blood pressure 152/74, respirations 20, O2 sat 97% on room air. General: Awake, alert, oriented x3. Elderly male, in some mild distress. CV: S1, S2, irregularly irregular. Peripheral pulses on the right present. Respiratory: Moving air well bilaterally. Some upper airway noise, but no wheezing or stridor. Gastrointestinal: Abdomen is soft, nontender, nondistended. Positive bowel sounds. No guarding or rigidity. Extremities: No clubbing, cyanosis, or edema in the right lower extremity. Musculoskeletal: Left BKA. Neuro: Nonfocal. Laboratory Data: Sodium 139, potassium 4.2, chloride 107, CO2 of 25, BUN 35, creatinine 1.54, glucose 135, calcium 8.1, albumin 3.3. WBC 10.1, H and H 12.8 and 37, platelets 269. Assessment: 1. Recurrent atrial fibrillation. Patient now on Betapace and Eliquis for stroke prophylaxis. Appreciate Dr. Ellis' input. Patient may go for cardioversion in a.m. 2. Acute on chronic systolic congestive heart failure exacerbation. improving. We will continue with Lasix. Monitor I's and O's, free fluid restriction, daily weights. 3. Essential hypertension. Continue home medications. Stable 4. Diabetes mellitus type 2 with hyperglycemia, [id number]. SSI, monitor glucose levels. 5. Hypothyroidism. We will continue Synthroid. 6. Mixed hyperlipidemia. Continue statin. 7. Diabetic amyotrophy with hand muscle weakness. 8. Chronic kidney disease stage 3. We will continue with monitoring creatinine and avoid NSAIDs. 9. Deep vein thrombosis prophylaxis. Patient is on Eliquis. Plan: Continue with current treatment. /FRANCY Voice ID: [id number] Report ID: [id number] MTDWalter
[2019-05-27] MEDS: glipiZIDE 5 MG TAB PO SCH (17:13)
[2019-05-27] MEDS: SOTALOL HCL 80 MG TAB PO SCH (17:13)
[2019-05-27] MEDS ORDERED: HOME MED 1 EA UNK (Glipizide [Glucotrol] 10 MG) PO SCH (21:00)
[2019-05-27 22:21] VITALS: O2SAT 93
[2019-05-27] MEDS: guaiFENesin 100 MG/5 ML UCUP PO PRN (22:36)
[2019-05-28 03:59] LABS: Urine Appearance CLEAR; Urine Bilirubin NEGATIVE (NEG); Urine Blood NEGATIVE (NEG); Urine Color YELLOW; Urine Glucose NEGATIVE (NEG); Urine Protein NEGATIVE (NEG); Urine Specific Gravity 1.015 (1.005-1.030); Urine Urobilinogen 0.2 mg/dL (0.2-1.0); Urine pH 5.5 (5.0-7.0)
[2019-05-28 04:19] LABS: Urine Bacteria 20-50 /HPF (NONE SEEN); Urine Culture Reflex Order REFLEXED; Urine RBC NONE SEEN /HPF (NONE SEEN)
[2019-05-28 04:42] LABS: UR MICROALBUMIN 2.4 mg/dL (< 1.9)
[2019-05-28] MEDS: SOTALOL HCL 80 MG TAB PO SCH (05:34)
[2019-05-28] MEDS: LEVOTHYROXINE SOD 0.025 MG TAB PO SCH (05:34)
[2019-05-28 05:55] LABS: Basophils % 0.3 % (0-1.3); Hematocrit 34.5 % (39.6-49.0); Lymphocytes % 8.4 % (15.3-44.8); MPV 7.8 fL (7.6-11.3); RBC Red Blood Cell Count 3.85 M/uL (4.33-5.43)
[2019-05-28 06:06] LABS: Albumin 2.9 g/dL (3.4-5.0); Bilirubin Total 0.7 mg/dL (0.2-1.0); CKMB Creatine Kinase MB 5.2 ng/mL (0.3-3.6); Magnesium 2.1 mg/dL (1.8-2.4); Phosphorus 3.6 mg/dL (2.5-4.9); Protein, Total 6.3 g/dL (6.4-8.2); Troponin I 0.04 ng/mL (0.0-0.045); Uric Acid 8.6 mg/dL (3.5-7.2)
[2019-05-28] MEDS ORDERED: LIOTHYRONINE SOD 25 MCG TAB PO SCH (06:30)
[2019-05-28 06:33] VITALS: BMI 27.0
[2019-05-28] MEDS: INSULIN -REGULAR HUMAN 50 UNIT/0.5 ML ML SQ SCH ×2 (07:30→11:30)
[2019-05-28 08:11] LABS: Blood Morphology Comment NOT SEEN (NOT SEEN); Platelet Estimate ADEQ; Urine White Blood Cell Casts OK
[2019-05-28] MEDS: guaiFENesin 100 MG/5 ML UCUP PO PRN (08:42)
[2019-05-28] MEDS: NITROGLYCERIN 0.2 MG/HR (5 MG) PATCH TD SCH (08:44)
[2019-05-28] MEDS: FUROSEMIDE 40 MG TABLET PO SCH (08:46)
[2019-05-28] MEDS: PANTOPRAZOLE 40MG TABLET PO SCH (08:50)
[2019-05-28] MEDS: APIXABAN 5 MG TABLET PO SCH (08:51)
[2019-05-28] MEDS: glipiZIDE 5 MG TAB PO SCH (08:51)
[2019-05-28] MEDS: MAGNESIUM OXIDE 400 MG TAB PO SCH (08:52)
[2019-05-28] MEDS: BENZONATATE 100 MG CAP PO PRN (08:54)
[2019-05-28] MEDS ORDERED: FINASTERIDE 5 MG TAB PO SCH (09:00)
[2019-05-28] MEDS ORDERED: VITAMIN D 5,000 UNIT CAP PO SCH (09:00)
[2019-05-28] MEDS ORDERED: INSULIN DEGLUDEC 40 UNIT SQ SCH (09:00)
[2019-05-28] MEDS ORDERED: LOSARTAN POTASSIUM 50 MG TABLET PO SCH (09:00)
[2019-05-28] MEDS ORDERED: ATORVASTATIN 40 MG TAB PO SCH (09:00)
[2019-05-28] MEDS ORDERED: FAMOTIDINE 20 MG TAB PO SCH (09:00)
[2019-05-28] MEDS ORDERED: TAMSULOSIN 0.4 MG SR CAP PO SCH (09:00)
[2019-05-28] MEDS ORDERED: CALCITROL 0.25 MCG CAP PO SCH (09:00)
--- NOTE | 2019-05-28 09:27 | PN ---
Subjective: Mr. Collins is in sinus rhythm, sinus bradycardia. I think he should be discharged home, t aking Betapace 80 b.i.d., Eliquis 5 b.i.d. He should stop his aspirin. He should continue albuterol , atorvastatin, glipizide, insulin, levothyroxine, losartan and his other home medications. He seems to have a stable situation with his coronary artery disease and his heart rhythm is stable. LORIN/FRANCY Voice ID: [id number] Report ID: [id number]
--- NOTE | 2019-05-28 10:54 | P.PN ---
Date of Service: 05/28/19 Vital Signs Temp Pulse Resp BP Pulse Ox 97.9 F 68 17 109/60 98 05/28/19 04:00 05/28/19 08:46 05/28/19 04:00 05/28/19 08:46 05/28/19 04:00 Medications Albuterol Sulfate (Proventil 0.083% Neb Soln) 2.5 mg NEB Q3HP PRN PRN Reason: SHORTNESS OF BREATH Stop: 06/25/19 22:06 Albuterol Sulfate (Proventil 0.083% Neb Soln) 2.5 mg NEB Q6HP PRN PRN Reason: SHORTNESS OF BREATH Stop: 06/25/19 22:04 Apixaban (Eliquis) 5 mg PO BID [facility] Stop: 06/26/19 09:01 Last Admin: 05/28/19 08:51 Dose: 5 mg Atorvastatin Calcium (Lipitor) 40 mg PO DAILY [facility] Stop: 06/27/19 09:01 Last Admin: 05/28/19 08:51 Dose: 40 mg Benzonatate (Tessalon Perle) 200 mg PO TID PRN PRN Reason: COUGH Stop: 06/26/19 05:53 Last Admin: 05/28/19 08:54 Dose: 100 mg Calcitriol (Rocaltrol) 0.5 mcg PO DAILY [facility] Stop: 06/27/19 09:01 Last Admin: 05/28/19 08:50 Dose: 0.5 mcg Cholecalciferol (Vitamin D 5,000 Iu Cap) 5,000 unit PO DAILY [facility] Stop: 06/27/19 09:01 Last Admin: 05/28/19 08:46 Dose: 5,000 unit Famotidine (Pepcid) 20 mg PO DAILY [facility]; Protocol Stop: 06/27/19 09:01 Last Admin: 05/28/19 08:50 Dose: 20 mg Finasteride (Proscar) 5 mg PO DAILY [facility] Stop: 06/27/19 09:01 Last Admin: 05/28/19 08:46 Dose: 5 mg Furosemide (Lasix) 40 mg PO DAILY [facility] Stop: 06/26/19 09:01 Last Admin: 05/28/19 08:46 Dose: 40 mg [facility]) [facility] Stop: 06/26/19 16:31 Last Admin: 05/28/19 08:51 Dose: 10 mg Guaifenesin (Robitussin 100mg/5ml) 200 mg PO QID PRN PRN Reason: COUGH Stop: 06/25/19 22:06 Last Admin: 05/28/19 08:42 Dose: 200 mg Home Med (Insulin Degludec [Tresiba Flextouch U-200]) 40 units SQ DAILY [facility] Stop: 06/27/19 09:01 Last Admin: 05/28/19 08:51 Dose: Not Given Insulin Human Regular (Novolin -R) 0 unit SQ ACHS [facility]; Protocol Stop: 06/26/19 07:31 Last Admin: 05/28/19 07:30 Dose: Not Given Levothyroxine Sodium (Synthroid) 0.025 mg PO DAILYAC [facility] Stop: 06/26/19 06:31 Last Admin: 05/28/19 05:34 Dose: 0.025 mg Liothyronine Sodium (Cytomel) 25 mcg PO DAILYAC [facility] Stop: 06/27/19 06:31 Last Admin: 05/28/19 05:34 Dose: 25 mcg Lorazepam (Ativan) 0.5 mg PO DAILY PRN PRN Reason: INSOMNIA Stop: 06/25/19 22:06 Last Admin: 05/27/19 22:36 Dose: 0.5 mg Losartan Potassium (Cozaar) 50 mg PO DAILY [facility] Stop: 06/27/19 09:01 Last Admin: 05/28/19 08:46 Dose: 50 mg Magnesium Oxide (Mag 0x Tab) 400 mg PO BID [facility] Stop: 06/26/19 09:01 Last Admin: 05/28/19 08:52 Dose: 400 mg Morphine Sulfate (Morphine Sulfate) 2 mg IV Q4H PRN PRN Reason: Pain scale 5-7 (Moderate) Stop: 06/25/19 22:04 Nitroglycerin (Transderm-Nitro 0.2mg/Hr Patch) 5 mg TD DAILY [facility] Stop: 06/26/19 09:01 Last Admin: 05/28/19 08:44 Dose: 5 mg Ondansetron HCl (Zofran) 4 mg IV Q8H PRN PRN Reason: NAUSEA / VOMITING Stop: 06/25/19 22:04 Last Admin: 05/28/19 08:40 Dose: 4 mg Pantoprazole Sodium (Protonix Tab) [facility]; Protocol Stop: 06/26/19 07:31 Last Admin: 05/28/19 08:50 Dose: 40 mg Sodium Chloride (Normal Saline Flush) 10 ml IV BID [facility] Stop: 06/26/19 09:01 Last Admin: 05/28/19 08:53 Dose: 10 ml Sotalol HCl (Betapace) 80 mg PO BID 6AM 6PM [facility] Stop: 06/26/19 18:01 Last Admin: 05/28/19 05:34 Dose: 80 mg Tamsulosin HCl (Flomax) 0.4 mg PO DAILY [facility] Stop: 06/27/19 09:01 Last Admin: 05/28/19 08:46 Dose: 0.4 mg Microbiology Results 05/27/19 05:40 Sputum Culture & Sensitivity - Preliminary 05/26/19 21:07 Blood - Blood Aerobic Blood Culture - Preliminary No growth in 24 hours. 05/26/19 21:07 Blood - Blood Anaerobic Blood Culture - Preliminary No growth in 24 hours. 05/26/19 20:50 Blood - Blood Aerobic Blood Culture - Preliminary No growth in 24 hours. 05/26/19 20:50 Blood - Blood Anaerobic Blood Culture - Preliminary No growth in 24 hours. 05/26/19 20:44 Nasopharnyx Influenza Type A Antigen Screen - Final 05/26/19 20:44 Nasopharnyx Influenza Type B Antigen Screen - Final Assessment/ Plan: Nephrology CPS stable without CP or SOB. No acute events overnight. Feeling better. +Cough and congestion. Vitals, medications, blood work and imaging reviewed in the chart. General: In no apparent distress, Oriented x3, Cooperative HEENT: Atraumatic Neck: Supple Respiratory: Clear to auscultation bilaterally Cardiovascular: No edema, Regular rate/rhythm Gastrointestinal: Soft and benign, Non-distended Musculoskeletal: No clubbing, No contractures Integumentary: No rashes, No cyanosis Neurological: Normal speech Laboratory Data (last 24 hrs) 05/27/19 05:46: Sodium 139, Potassium 4.2, BUN 35 H, Creatinine 1.54 H, Glucose 135 H, Total Bilirubin 0.6, AST 23, ALT 28, Alkaline Phosphatase 110, Troponin I 0.04 05/27/19 05:46: WBC 10.1 D, Hgb 12.8 L, Hct 37.0 L, Plt Count 269 05/26/19 23:20: Magnesium 2.3 05/26/19 20:50: PT 12.2, INR 1.04, APTT 33.8 05/26/19 20:50: WBC 7.5, Hgb 14.0, Hct 41.9, Plt Count 265 05/26/19 20:50: Sodium 138, Potassium 4.4, BUN 34 H, Creatinine 1.58 H, Glucose 149 H, Magnesium 2.4, Total Bilirubin 0.8, AST 24, ALT 32, Alkaline Phosphatase 132 H, Lipase 141 Imagings Data: [facility] 8:38 pm CLINICAL HISTORY: Cough COMPARISON: 2018 FINDINGS: The lungs appear clear of acute infiltrate. The heart is mildly to moderately enlarged. Postsurgical changes involve the chest IMPRESSION: No acute abnormalities displayed LEFT VENTRICULAR WALL MOTION: PARADOXICAL SEPTAL MOTION. DOPPLER/COLOR FLOW: TRACE OF AORTIC REGURGITATION. COMMENTS: DEPRESSED LEFT VENTRICULAR EJECTION FRACTION WITH PARADOXICAL SEPTAL MOTION. DILATED LEFT ATRIUM. LEFT VENTRICULAR HYPERTROPHY. LVEF 40-45% Conclusions/Impression: A/ CKD III in the setting of DM & HTN. Hypocalcemia. Systolic CHF, chronic. HTN with CKD/ CHF. DM II with CKD. BPH with LUTS. P/ Continue current POC and Medications. Continue Lasix. Counseled regarding CKD. Follow up urine culture. No NSAIDs. AM labs. Daily weight.
--- NOTE | 2019-05-28 12:21 | PN ---
Mr. Collins seems to be stable. I would recommend he be discharged. Taking Betapace and Eliquis. Stop aspirin. LORIN/MODL Voice ID: [id number] Report ID: [id number]
[2019-05-28] MEDS ORDERED: PNEUMOCOCCAL VACCINE 0.5 ML IMVAC ONE (15:00)
[2019-05-28 15:47] VITALS: BP 101/59; TEMP 98.6
--- NOTE | 2019-05-29 00:10 | DS ---
Date of Discharge: 05/28/2019 Consultants: 1.Dr. Ellis with Cardiology. 2.Dr. Márquez with Nephrology. Admitting Diagnoses: 1.Recurrent atrial fibrillation with rapid ventricular rate. 2.Mild systolic congestive heart failure. 3.Essential hypertension. 4.Diabetes mellitus type 2 insulin requiring with hyperglycemia. 5.Diabetic amyotrophy with hand muscle weakness. 6.Hypothyroidism. 7.Hypomagnesemia. Discharge Diagnoses: 1.Recurrent atrial fibrillation with rapid ventricular rate, now in sinus rhythm on Betapace and Uma hyun for stroke prophylaxis. 2.Acute on chronic systolic congestive heart failure exacerbation, improved. 3.Essential hypertension, stable. 4.Diabetes mellitus type 2, now with hypoglycemia, improved. 5.Hypothyroidism, continue Synthroid. 6.Mixed hyperlipidemia, on statin. 7.Diabetic amyotrophy with hand muscle weakness, stable. 8.Chronic kidney disease stage 3, stable. Hospital Course: Patient is a 74-year-old male with past medical history of diabetes, hyperlipidemia , hypothyroidism, coronary artery disease status post CABG, peripheral vascular disease status post l eft BKA, comes in with fatigue. Patient was found to be in atrial fibrillation. Patient was started on Betapace and Eliquis. Patient was seen by Dr. Ellis, Cardiology. He was also given Lasix IV fo r his congestive heart failure. Workup for his atrial fibrillation was done. TSH was normal. Kiki raymond did have elevated kidney function, however, this is chronic and his kidney function was at baselin e. He was seen by his special education educational assistant, Dr. Márquez. The patient's flu screen was negative. He has bee n having some cough and upper respiratory tract type symptoms. Patient was doing better. He is back in sinus rhythm. His rate was controlled. He tolerated sotalol well. He was then cleared from Dr. Ellis's standpoint. Patient did have some nausea and vomiting on the day of discharge, however, wa s subsequently able to tolerate his lunch. His blood glucose levels remained stable after he ate. Gurmeet reddy was then discharged home in a stable condition. Activity: As tolerated. Medications: As per medication reconciliation list. Followup: Follow up with primary care physician in 2-3 days. Follow up with special education educational assistant, Dr. Kristen belle in 2 weeks. Follow up with pharmaceutical representative, Dr. Ellis in 2 weeks. Return to ER for worsening condi tion. Diet: Diabetic, free fluid restriction 1500 mL and sodium restriction. Physical Examination: General: Awake, alert, and oriented x3 elderly male. CV: S1, S2. Respiratory: Moving air well bilaterally. Abdomen: Abdomen is soft, nontender, nondistended. Positive bowel sounds. Extremities: No clubbing, cyanosis, or edema in the right lower extremity Musculoskeletal: Left BKA . Neurologic: Nonfocal. Total time spent discharging patient was 40 minutes. /FRANCY Voice ID: [id number] Report ID: [id number]
== END 2019-05-28 16:20 | disposition home or self-care (01) | DRG 308 ==
LOC: ER 19:59 → 4TH 22:04 → OBSVTOIN 05-27 10:55
PROVIDERS: ADMIT Internal Medicine; ATTEND Internal Medicine
DX: I48.20 Chronic atrial fibrillation, unspecified (principal); I50.23 Acute on chronic systolic (congestive) heart failure; I13.0 Hypertensive heart and chronic kidney disease with heart failure and stage 1 through stage 4 chronic kidney disease, or unspecified chronic kidney disease; N18.3 Chronic kidney disease, stage 3 (moderate); E11.22 Type 2 diabetes mellitus with diabetic chronic kidney disease; E03.9 Hypothyroidism, unspecified; E78.2 Mixed hyperlipidemia; E11.44 Type 2 diabetes mellitus with diabetic amyotrophy; E11.649 Type 2 diabetes mellitus with hypoglycemia without coma; I25.10 Atherosclerotic heart disease of native coronary artery without angina pectoris; I73.9 Peripheral vascular disease, unspecified; Z95.1 Presence of aortocoronary bypass graft; Z89.512 Acquired absence of left leg below knee; Z23 Encounter for immunization
CPT/HCPCS: 36415; 71045; 80048; 80053; 80076; 81001; 82043; 82550; 82553; 82570; 82947; 83690; 83735; 83880; 84100; 84443; 84484; 84550; 85025; 85610; 85730; 87040; 87070; 87086; 87088; 87205; 87804; 90471; 90670; 93005; 93306; 94760; 99285; G0378; J1940; J2405

== ENCOUNTER 2020-02-08 03:19 | Observation (INO) | payer BC ==
--- OUTSIDE RECORDS SUMMARY | 2020-02-08 03:22 | XMS REPORT | Clinical Summary ---
:1945 Author Organization [facility] Address [address] [place] [address] Care Team Providers Name Role Phone Terell Primary Care Provider Hardik Schofield Unavailable Allergies Active Allergy Reactions Severity Noted Date Comments Codeine 10/14/2016 Hydrocodone-Acetaminophen 10/14/2016 Medications Medication Sig Dispensed Refills Start Date End Date Status liothyronine Take 25 mcg by mouth 0 Active (CYTOMEL) 25 MCG daily. tablet finasteride Take 5 mg by mouth 0 Active (PROSCAR) 5 mg daily. tablet aspirin 81 MG EC Take 81 mg by mouth 0 Active tablet daily. zinc sulfate Take 220 mg by mouth 0 Active (ZINCATE) 220 (50) daily. mg capsule insulin detemir To use 15 units q am 45 mL 3 11/05/2016 Active (LEVEMIR FLEXTOUCH) and 3 units q 9 pm. 100 unit/mL (3 mL) InPn injection insulin aspart To use via sliding 45 mL 3 11/05/2016 Active (NOVOLOG FLEXPEN) scale from 3 units 100 unit/mL InPn to 20 units three times a day. insulin pen needles Use as directed. 600 each 3 11/05/2016 Active (BD ULTRA-FINE Dispense as written, SLICK) 4 mm x 32 G do not substitute. Brand medically necessary. To use 6 a day. apixaban (ELIQUIS) Take 1 tablet (5 mg 60 tablet 0 11/05/2016 Active 5 mg Tab tablet total) by mouth 2 (two) times daily. DOBUTamine Inject 447 mcg/min 250 mL 0 11/05/2016 Active (DOBUTREX) 1,000 intravenously mg/250 mL (4,000 continuous. mcg/mL) infusion famotidine (PEPCID) Take 1 tablet (20 mg 30 tablet 0 7 Active 20 MG tablet total) by mouth nightly. tamsulosin (FLOMAX) Take 1 capsule (0.4 30 capsule 0 7 Active 0.4 mg Cp24 24 hr mg total) by mouth capsule daily. 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 Coronary artery disease 10/14/2016 Social History Tobacco Use Types Packs/Day Years Used Date Never Smoker Smokeless Tobacco: Never Used Alcohol Use Drinks/Week oz/Week Comments No Sex Assigned at Date Recorded Not on file Last Filed Vital Signs Not on file Plan of Treatment Not on file Implants Implanted Type Area Yolk Spray Drier Device Shelf Model / Identifier Expiration Serial / Date Lot Sternal Zipfix Ndl Strl [id number] - [id number] Cardiovascula r SYNTHES:SYNTHES 09/19/2021 [id number] / Implanted: Qty: 4 on 10/15/2016 at [facility][NOTE 3] / [id number] Description:2 IMPLANTED AND 4 WASTED/ H AD TO REOPEN CHEST Results Not on fileafter 02/07/2019 Insurance Payer Benefit Plan Subscriber ID Effective Phone Address Typ e / Group Dates MEDICARE MEDICARE PART [id number] 2012-Prese Medicare A nt BLUE BCBS OS [id number] 2013-Prese [phone] [address] PO CROSS/BLUE POS/PPO/EPO nt 12 [id number] [place] [address] Advance Directives For more information, please contact: [phone] Code Status Date Activated Date Inactivated Comments Full Code 10/14/2016 6:43 PM 11/07/2016 4:05 PM This code status was determined by: Patient
--- OUTSIDE RECORDS SUMMARY | 2020-02-08 03:22 | XMS REPORT ---
:1945 Author Organization [facility] Address [address] [facility] [place] [place] [address] Care Team Providers Name Role Phone Higinio Garcia Unavailable [phone] PROBLEMS Type Condition ICD9-CM [id number] Onset Condition SNOMED Code Notes Code Code Dates Status Problem Cancer of C61 Active 80150251 prostate with intermediate recurrence risk (stage T2b-c or Lili 7 or PSA 10-20) Problem CA of prostate C61 Active 295545062 Problem Status post Z98.890 Active 188999637 cryoablation ALLERGIES Allergen (clinical Drug/Non Drug Reaction Allergy Type Onset Date S tatus drug ingredient) Allergy documented on EMR CODEINE Unknown Non Drug Allergy Active VICODIN Unknown Non Drug Allergy Active ENCOUNTERS from 1945 to 2020-02-02 Encounter Location Date Provider Diagnosis [place] [address] [facility] Jan, Higinio Garcia Cancer o f prostate Specialty/Urology [address], [place] [address] recurrence ris k (stage T2b-c or Sumner 7 or PS A 10-20) C61 and Status post cryoablati on Z98.890 IMMUNIZATIONS No Information SOCIAL HISTORY Tobacco Use: Social History Observation Description Date Details (start date - stop date) Never Smoker Sex Assigned At : Social History Observation Description Sex Assigned At Unknown Alcohol Screen Question Answer Notes Did you have a drink containing alcohol in the past year? No Points 0 Interpretation Negative Tobacco Use/Smoking Question Answer Notes Are you a never smoker REASON FOR REFERRAL No Information VITAL SIGNS Height 72 in Jan, Weight 211 lbs Jan, Temperature 97.2 degrees Fahrenheit Jan, BMI 28.61 kg/m2 Jan, Oximetry 96 % Jan, Blood pressure systolic 118 mm Hg Jan, Blood pressure diastolic 60 mm Hg Jan, MEDICATIONS Medication SIG (Take, Route, Frequency, Start Date End Date Status Duration) Eliquis 2.5 MG as directed Orally Active Metformin HCl 1000 MG 1 tablet with meals Orally Twice Active a day GlipiZIDE - as directed Active Cinnamon 500 MG as directed Orally Active Sotalol HCl 80 MG 1 tablet Orally every 12 hrs Active Famotidine 20 MG 1 tablet at bedtime as needed Active Orally Once a day Losartan Potassium 50 MG 1 tablet Orally BID Active Zinc 50 MG 1 tablet Orally Once a day A ctive Tresiba 200 units/mL As Directed Subcuteneous Active Magnesium 300 MG 1 capsule with a meal Orally Once Active a day Flomax 0.4 MG 1 capsule Orally Once a day Active Finasteride 5 MG 1 tablet Orally Once a day Active Vitamin C 1000 MG 1 tablet Orally Once a day Active Bumetanide 1 MG as directed Orally Active PROCEDURES No Information RESULTS No Results REASON FOR VISIT MICAELA CRESPO MEDICAL (GENERAL) HISTORY Type Description Date Medical History CONGESTIVE HEART FAILURE Medical History DIABETES Medical History PROSTATE CANCER-T1C Nx M0, GL 7 Medical History psa from dr mendes 0.2 done on 06/30/2019 Medical History ARTHIRITIS Surgical History CRYOTHERAPT OF THE PROSTATE 08/12/2016 Surgical History LEG AMPUTATION 06/09/2015 [facility]ICA Surgical History VASECTOMY Surgical History 5 WAY HEART BYPASS 10/15/2016 Goals Section No Information Health Concerns No Information MEDICAL EQUIPMENT No Information MENTAL STATUS No Information FUNCTIONAL STATUS No Information ASSESSMENTS Encounter Date Diagnosis Notes Jan, Status post cryoablation (ICD-10 - Z98.8 90) Jan, Cancer of prostate with intermediate rec urrence risk (stage T2b-c or Sumner 7 or PSA 10-20) (ICD-10 - C61) PLAN OF TREATMENT Treatment Notes Test Name Order Date URINALYSIS AUTO W/O SCOPE ([id number]) 2020-02-02 PSA, TOTAL 2020-02-02 PSA (Free and Total) 2020-02-02 Next Appt Details Provider Name:Higinio Garcia, 2020-08-02 09:00:00 AM, [address] [place] [address], [place], [address], Insurance Providers Payer Name Payer Payer Insured Name Patient Coverage Covera End Address Phone Relationship to Start Date Russ e Insured [facility] [phone] Navjot Collins and Servando [id number] [address] [place] [phone]
[2020-02-08 04:17] LABS: Absolute Lymphocytes (CBC) 0.6 K/uL (0.7-4.9); Basophils % 0.2 % (0-1.3); Hematocrit 37.5 % (39.6-49.0); Lymphocytes % 9.9 % (15.3-44.8); MPV 8.1 fL (7.6-11.3); RBC Red Blood Cell Count 4.43 M/uL (4.33-5.43)
[2020-02-08] MEDS ORDERED: PIPER/TAZO/NS 3.375gm 3.375 GM/100 ML BAG ONE (04:18)
[2020-02-08] MEDS ORDERED: NA CHLORIDE 0.9% 1,000 ML ONE (04:18)
[2020-02-08] MEDS ORDERED: FAMOTIDINE 20 MG/2 ML VIAL IV ONE (04:18)
[2020-02-08 04:30] LABS: Albumin 3.3 g/dL (3.4-5.0); Bilirubin Direct 0.1 mg/dL (0-0.2); Bilirubin Total 0.6 mg/dL (0.2-1.0); Magnesium 2.5 mg/dL (1.8-2.4); Potassium 4.8 mmol/L (3.5-5.1); Protein, Total 7.1 g/dL (6.4-8.2); Troponin (Emerg Dept Use Only) 0.03 ng/mL (0.0-0.045)
--- NOTE | 2020-02-08 04:51 | EDPHYS ---
Physician Documentation [facility] Name: Navjot Collins Age: 74 yrs Sex: Male : 1945 Arrival Date: 02/08/2020 Time: 03:19 Bed 26 Private MD: ED Physician Davon Arredondo HPI: 02/07 04:15 This 74 yrs old Male presents to ER via EMS with complaints of Not Feeling laila Well. 04:15 The patient has shortness of breath at rest, with light activity. Onset: The laila symptoms/episode began/occurred 4 day(s) ago. Duration: The symptoms are continuous, and are steadily getting worse. The patient's shortness of breath has no apparent modifying factors. The patient or guardian reports cough, difficulty breathing, flu symptoms. Modifying factors: The symptoms are alleviated by elevating head. Associated signs and symptoms: Pertinent positives: non-productive cough. Severity of symptoms: At their worst the symptoms were moderate in the emergency department the symptoms. Historical: - Allergies: 03:30 Codeine; wh 03:30 Demerol; 03:30 fedrazil; 03:30 Vicodin; wh - Home Meds: 03:30 tamsulosin 0.4 mg oral cp24 1 cap once daily [Active]; famotidine 20 mg Oral tab 1 tab wh once daily [Active]; losartan 50 mg oral tab 1 tab once daily [Active]; Eliquis 5 mg oral tab 1 tab 2 times per day [Active]; sotalol 80 mg Oral tab 1 tab daily [Active]; finasteride 5 mg oral tab 1 tab once daily [Active]; bumetanide 1 mg oral tab 1 tab once daily [Active]; Vit C [Active]; Zinc [Active]; Tresiba 40 units once daily [Active]; gabapentin 300 mg oral cap 1 cap as needed [Active]; - PMHx: 03:30 CHF; Diabetes - IDDM; HTN; PROSTATE CA; wh - Immunization history:: Adult Immunizations up to date. - Social history:: Smoking status: Patient/guardian denies using. - Family history:: not pertinent. ROS: 04:15 Constitutional: Negative for fever, chills, and weight loss, Eyes: Negative for injury, laila pain, redness, and discharge, ENT: Negative for injury, pain, and discharge, Neck: Negative for injury, pain, and swelling, Cardiovascular: Negative for chest pain, palpitations, and edema, Abdomen/GI: Negative for abdominal pain, nausea, vomiting, diarrhea, and constipation, Back: Negative for injury and pain, : Negative for injury, bleeding, discharge, and swelling, MS/Extremity: Negative for injury and deformity, Skin: Negative for injury, rash, and discoloration, Neuro: Negative for headache, weakness, numbness, tingling, and seizure, Psych: Negative for depression, anxiety, suicide ideation, homicidal ideation, and hallucinations, Allergy/Immunology: Negative for hives, rash, and allergies, Endocrine: Negative for neck swelling, polydipsia, polyuria, polyphagia, and marked weight changes, Hematologic/Lymphatic: Negative for swollen nodes, abnormal bleeding, and unusual bruising. 04:15 Respiratory: Positive for dyspnea on exertion, orthopnea, shortness of breath, at rest. Exam: 04:15 Constitutional: This is a well developed, well nourished patient who is awake, alert, laila and in no acute distress. Head/Face: Normocephalic, atraumatic. Eyes: Pupils equal round and reactive to light, extra-ocular motions intact. Lids and lashes normal. Conjunctiva and sclera are non-icteric and not injected. Cornea within normal limits. Periorbital areas with no swelling, redness, or edema. ENT: Nares patent. No nasal discharge, no septal abnormalities noted. Tympanic membranes are normal and external auditory canals are clear. Oropharynx with no redness, swelling, or masses, exudates, or evidence of obstruction, uvula midline. Mucous membranes moist. Neck: Trachea midline, no thyromegaly or masses palpated, and no cervical lymphadenopathy. Supple, full range of motion without nuchal rigidity, or vertebral point tenderness. No Meningismus. Chest/axilla: Normal chest wall appearance and motion. Nontender with no deformity. No lesions are appreciated. Cardiovascular: Regular rate and rhythm with a normal S1 and S2. No gallops, murmurs, or rubs. Normal PMI, no JVD. No pulse deficits. Abdomen/GI: Soft, non-tender, with normal bowel sounds. No distension or tympany. No guarding or rebound. No evidence of tenderness throughout. Back: No spinal tenderness. No costovertebral tenderness. Full range of motion. Male : Normal genitalia with no discharge or lesions. Skin: Warm, dry with normal turgor. Normal color with no rashes, no lesions, and no evidence of cellulitis. Neuro: Awake and alert, GCS 15, oriented to person, place, time, and situation. Cranial nerves II-XII grossly intact. Motor strength 5/5 in all extremities. Sensory grossly intact. Cerebellar exam normal. Normal gait. Psych: Awake, alert, with orientation to person, place and time. Behavior, mood, and affect are within normal limits. 04:15 Respiratory: mild respiratory distress is noted, Respirations: labored breathing, is not present, Breath sounds: decreased breath sounds, that are mild, rhonchi, that are mild, Respiratory rate: cough, sob , dyspnea, orthopena 04:24 ECG was reviewed by the Attending Physician. [facility] Vital Signs: 03:25 BP 114 / 62; Pulse 59; Resp 21; Temp 99.8; Pulse Ox 96% ; rv 05:02 BP 110 / 61; Pulse 56; Resp 16; Pulse Ox 98% on R/A; wh MDM: 03:30 Patient medically screened. [facility] 04:15 Differential diagnosis: asthma, CHF exacerbation, Chronic Obstructive Pulmonary Disease laila bronchitis, flu, URI, pneumonia, pulmonary edema. Antibiotic administration: zosyn and zithromax. The patient's Wells Deep Vein Thrombosis Score was calculated as follows: Total Score: 0-2 Pts- Low Risk. The patient's pulmonary embolism risk score was calculated as follows: Total Score: 0-2 points. This patient was found to be at low risk for a pulmonary embolism by using the Well's assessment criteria. Immunization status: Pneumococcal vaccine: Influenza vaccine: Data reviewed: vital signs, nurses notes, EMS record, lab test result(s), EKG, radiologic studies, plain films. 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 Test interpretation: by ED physician or midlevel provider: ECG, plain radiologic studies. 02/07 03:33 Order name: Basic Metabolic Panel [facility] 02/07 03:33 Order name: CBC with Diff; Complete Time: 04:20 [facility] 02/07 03:33 Order name: LFT's; Complete Time: 04:46 [facility] 02/07 03:33 Order name: Magnesium; Complete Time: 04:46 [facility] 02/07 03:33 Order name: NT PRO-BNP; Complete Time: 04:46 [facility] 02/07 03:33 Order name: PT-INR; Complete Time: 05:31 [facility] 02/07 03:33 Order name: Troponin (emerg Dept Use Only); Complete Time: 04:46 [facility] 02/07 03:33 Order name: Blood Culture Adult (2) [facility] 02/07 03:33 Order name: Lipase; Complete Time: 04:46 [facility] 02/07 03:33 Order name: Lactate; Complete Time: 04:46 [facility] 02/07 03:33 Order name: Urine Culture [facility] 02/07 03:33 Order name: Flu; Complete Time: 05:31 [facility] 02/07 03:33 Order name: COVID-19 [facility] 02/07 03:33 Order name: Basic Metabolic Panel; Complete Time: 04:46 [facility] 02/07 03:33 Order name: XRAY Chest (1 view) [facility] 02/07 03:33 Order name: EKG; Complete Time: 03:34 [facility] 02/07 03:33 Order name: Cardiac monitoring; Complete Time: 04:02 [facility] 02/07 03:33 Order name: EKG - Nurse/Tech; Complete Time: 04:02 [facility] 02/07 03:33 Order name: IV Saline Lock; Complete Time: 04:02 [facility] 02/07 03:33 Order name: Labs collected and sent; Complete Time: 04:02 [facility] 02/07 08:06 Order name: Glucose, Ancillary Testing [facility] 02/07 10:17 Order name: SARS-COV-2 RT PCR [facility] 02/07 11:11 Order name: Troponin I [facility] 02/07 11:44 Order name: Glucose, Ancillary Testing [facility] 02/07 03:33 Order name: O2 Per Protocol; Complete Time: 04:02 [facility] 02/07 03:33 Order name: O2 Sat Monitoring; Complete Time: 04:03 [facility] 02/07 03:33 Order name: Urine Dipstick-Ancillary (obtain specimen); Complete Time: 05:49 [facility] EC:24 Rate is 57 beats/min. Rhythm is regular. QRS [place] is Normal. NM interval is normal. QRS laila interval is normal. QT interval is normal. No Q waves. T waves are Normal. T waves are Inverted in leads V5, V6. Clinical impression: NSR w/ Non-specific ST/T Changes. Interpreted by me. Reviewed by me. Administered Medications: Discontinued: NS 0.9% 1000 ml IV at 1 bolus Per protocol; 1000 mL bolus Discontinued: NS 0.9% 1000 ml IV at 125 ml/hr continuous 04:39 Drug: Pepcid 20 mg Route: IVP; Site: left forearm; rv 04:57 Follow up: Response: No adverse reaction wh 04:39 Drug: NS 0.9% 1000 ml Route: IV; Rate: 1 bolus; Site: left forearm; rv 04:42 Follow up: IV Status: Order to discontinue infusion rv 05:50 Follow up: Response: No adverse reaction; IV Status: Order to discontinue infusion 04:40 Drug: Zosyn 3.375 grams Route: IVPB; Infused Over: 60 mins; Site: left forearm; rv 05:20 Follow up: Response: No adverse reaction; IV Status: Completed infusion 04:40 Drug: NS 0.9% 1000 ml Route: IV; Rate: 125 ml/hr; Site: left forearm; rv 05:50 Follow up: Response: No adverse reaction; IV Status: Order to discontinue infusion 04:57 Drug: Lasix 20 mg Route: IVP; Site: left forearm; 05:20 Follow up: Response: No adverse reaction 05:20 Drug: Zithromax 500 mg Route: IVPB; Infused Over: 1 hrs; Site: left forearm; 05:48 Follow up: Response: No adverse reaction; IV Status: Infusion continued upon admission Disposition: 02/08/20 04:50 Hospitalization ordered by Maris Chao for Inpatient Admission. Preliminary diagnosis are Cough, Dyspnea, Acute upper respiratory infection, unspecified, Systolic (congestive) heart failure, Cardiomegaly. - Bed requested for [facility] ER HOLD. - Status is Inpatient Admission. iw - Condition is Stable. - Problem is new. - Symptoms have improved. Signatures: Dispatcher [employer] EDMS Davon Arredondo MD MD cha Williams, Irene, RN RN iw Tomi Bangura, COMMODITY MANAGER-C COMMODITY MANAGER-Cla1 Anita Hoffman RN RN tl1 [place] Naresh Hoover RN RN rv Corrections: (The following items were deleted from the chart) 05:43 04:50 Hospitalization Ordered by Maris Chao MD for Inpatient Admission. Preliminary tl1 diagnosis is Cough; Dyspnea; Acute upper respiratory infection, unspecified; Systolic (congestive) heart failure; Cardiomegaly. Bed requested for Telemetry/MedSurg (Inpatient). Status is Inpatient Admission. Condition is Stable. Problem is new. Symptoms have improved. laila 12:48 05:43 02/08/2020 04:50 Hospitalization Ordered by Maris Chao MD for Inpatient iw Admission. Preliminary diagnosis is Cough; Dyspnea; Acute upper respiratory infection, unspecified; Systolic (congestive) heart failure; Cardiomegaly. Bed requested for [facility] ER HOLD. Status is Inpatient Admission. Condition is Stable. Problem is new. Symptoms have improved. tl1
--- NOTE | 2020-02-08 04:51 | ER ---
Nurse's Notes [facility] Name: Navjot Collins Age: 74 yrs Sex: Male : 1945 Arrival Date: 02/08/2020 Time: 03:19 Bed 26 Private MD: Diagnosis: Cough;Dyspnea;Acute upper respiratory infection, unspecified;Systolic (congestive) heart failure;Cardiomegaly Presentation: 02/07 03:24 Chief complaint: EMS states: Pt C/O general malaise that started Thursday, getting wh worse. Associated symptoms of cough, SOB and dry heaving. Pt denies having fever. Coronavirus screen: Client denies travel out of the [place] in the last 14 days. cough unrelated to allergies, Malaise. Ebola Screen: Patient negative for fever greater than or equal to 101.5 degrees Fahrenheit, and additional compatible Ebola Virus Disease symptoms Patient denies exposure to infectious person. Initial Sepsis Screen: Does the patient meet any 2 criteria? No. Patient's initial sepsis screen is negative. Does the patient have a suspected source of infection? No. Patient's initial sepsis screen is negative. Risk Assessment: Do you want to hurt yourself or someone else? Patient reports no desire to harm self or others. Onset of symptoms was February 08, 2020. Care prior to arrival: Glucose check: 109. 03:24 Method Of Arrival: EMS: [facility] 03:24 Acuity: ZENAIDA 3 Historical: - Allergies: 03:30 Codeine; 03:30 Demerol; 03:30 fedrazil; 03:30 Vicodin; - Home Meds: 03:30 tamsulosin 0.4 mg oral cp24 1 cap once daily [Active]; famotidine 20 mg Oral tab 1 tab once daily [Active]; losartan 50 mg oral tab 1 tab once daily [Active]; Eliquis 5 mg oral tab 1 tab 2 times per day [Active]; sotalol 80 mg Oral tab 1 tab daily [Active]; finasteride 5 mg oral tab 1 tab once daily [Active]; bumetanide 1 mg oral tab 1 tab once daily [Active]; Vit C [Active]; Zinc [Active]; Tresiba 40 units once daily [Active]; gabapentin 300 mg oral cap 1 cap as needed [Active]; - PMHx: 03:30 CHF; Diabetes - IDDM; HTN; PROSTATE CA; wh - Immunization history:: Adult Immunizations up to date. - Social history:: Smoking status: Patient/guardian denies using. - Family history:: not pertinent. Screenin:30 Abuse screen: Denies threats or abuse. Denies injuries from another. Nutritional wh screening: No deficits noted. Tuberculosis screening: No symptoms or risk factors identified. Fall Risk None identified. Assessment: 03:45 General: Appears in no apparent distress. Behavior is calm, cooperative, appropriate wh for age. Pain: Denies pain. Neuro: Level of Consciousness is awake, alert, obeys commands, Oriented to person, place, time, situation, Appropriate for age. Cardiovascular: Heart tones S1 S2 Rhythm is regular. Respiratory: Reports shortness of breath cough that is Airway is patent Respiratory effort is even, unlabored, Respiratory pattern is regular, symmetrical, Breath sounds are diminished. GI: Abdomen is flat, non-distended. : No signs and/or symptoms were reported regarding the genitourinary system. EENT: No signs and/or symptoms were reported regarding the EENT system. Derm: Skin is intact, is healthy with good turgor, Skin is pink, warm \T\ dry. normal. Musculoskeletal: Amputation of left BKA. Circulation, motion, and sensation intact. 05:02 Reassessment: Patient appears in no apparent distress at this time. No changes from previously documented assessment. Patient and/or family updated on plan of care and expected duration. Pain level reassessed. Patient is alert, oriented x 3, equal unlabored respirations, skin warm/dry/pink. Provider at bedside explaining POC need for admit. Vital Signs: 03:25 BP 114 / 62; Pulse 59; Resp 21; Temp 99.8; Pulse Ox 96% ; rv 05:02 BP 110 / 61; Pulse 56; Resp 16; Pulse Ox 98% on R/A; ED Course: 03:19 Patient arrived in ED. cl3 03:26 Triage completed. 03:30 Davon Arredondo MD is Attending Physician. [facility] 03:30 Patient has correct armband on for positive identification. Bed in low position. Call light in reach. Side rails up X 1. Pulse ox on. NIBP on. 03:31 Arm band placed on right wrist. wh 03:45 Inserted saline lock: 20 gauge in right antecubital area, using aseptic technique. Blood collected. 03:48 XRAY Chest (1 view) In Process Unspecified. EDMS 04:30 Inserted saline lock: 20 gauge in left forearm, using aseptic technique. Blood rv collected. 04:30 Lab(s) recollected, by me, sent to lab. rv 04:38 Naresh Hoover RN is Primary Nurse. rv 04:48 Maris Chao MD is Hospitalizing Provider. laila 05:48 No provider procedures requiring assistance completed. Patient admitted, IV remains in place. Administered Medications: Discontinued: NS 0.9% 1000 ml IV at 1 bolus Per protocol; 1000 mL bolus Discontinued: NS 0.9% 1000 ml IV at 125 ml/hr continuous 04:39 Drug: Pepcid 20 mg Route: IVP; Site: left forearm; rv 04:57 Follow up: Response: No adverse reaction wh 04:39 Drug: NS 0.9% 1000 ml Route: IV; Rate: 1 bolus; Site: left forearm; rv 04:42 Follow up: IV Status: Order to discontinue infusion rv 05:50 Follow up: Response: No adverse reaction; IV Status: Order to discontinue infusion wh 04:40 Drug: Zosyn 3.375 grams Route: IVPB; Infused Over: 60 mins; Site: left forearm; rv 05:20 Follow up: Response: No adverse reaction; IV Status: Completed infusion wh 04:40 Drug: NS 0.9% 1000 ml Route: IV; Rate: 125 ml/hr; Site: left forearm; rv 05:50 Follow up: Response: No adverse reaction; IV Status: Order to discontinue infusion wh 04:57 Drug: Lasix 20 mg Route: IVP; Site: left forearm; wh 05:20 Follow up: Response: No adverse reaction wh 05:20 Drug: Zithromax 500 mg Route: IVPB; Infused Over: 1 hrs; Site: left forearm; wh 05:48 Follow up: Response: No adverse reaction; IV Status: Infusion continued upon admission Outcome: 04:50 Decision to Hospitalize by Provider. laila 05:48 Admitted to ER Hold. Please see [facility] for further documentation. 05:48 Condition: stable 05:48 Instructed on the need for admit. 12:48 Patient left the ED. iw Signatures: Dispatcher [employer] EDDavon Gongora MD MD cha Williams, Irene RN RN Bay Perdomo Ronaldo, RN RN Maxim Acosta cl3 Corrections: (The following items were deleted from the chart) 03:31 03:31 General: Appears [facility] 05:01 03:24 Chief complaint: EMS states: Pt C/O general malaise that started Thursday, wh getting worse. Associated symptoms of cough and dry heaving. Pt denies having fever 05:05 05:02 Pulse 56bpm; Resp 16bpm; Pulse Ox 98% RA; wh 06:06 03:45 Musculoskeletal: Circulation, motion, and sensation intact. [facility]
[2020-02-08 04:59] LABS: Protime INR 1.39
[2020-02-08] MEDS ORDERED: NA CHLORIDE 0.9% 250 ML ONE (05:07)
[2020-02-08] MEDS ORDERED: AZITHROMYCIN 500 MG INJ IVPB ONE (05:07)
[2020-02-08] MEDS ORDERED: FUROSEMIDE 20 MG/ 2ML VIAL ONE (05:08)
--- NOTE | 2020-02-08 05:44 | P.HP ---
Certification for Inpatient Patient admitted to: Observation With expected LOS: <2 Midnights Patient will require the following post-hospital care: None Practitioner: I am a practitioner with admitting privileges, knowledge of patient current condition, hospital course, and medical plan of care. Services: Services provided to patient in accordance with Admission requirements found in Title 42 Section 412.3 of the Code of Federal Regulations <Tomi Bangura - Last Filed: 02/08/20 05:38> Patient History Date of Service: 02/08/20 Primary Care Provider: Dr. Greene Reason for admission: CHF exacerbation History of Present Illness: 74-year-old male with history of systolic congestive heart failure, diabetes mellitus type 2, hypertension presents emergency department for increasing shortness of breath and malaise over the course of the last 1 day. Patient reports that he has also had some nausea and dry heaving. Patient was evaluated in the emergency department labs significant for creatinine 1.48, GFR 47, BUN 34 which is around his baseline and elevated BNP 08383. White blood cell count 6.0 hemoglobin 12.6 hematocrit 37.5. Chest x-ray appears to show mild overload with questionable pneumonia. Patient given IV antibiotics and Lasix in the emergency department, ED provider wishes to admit patient for further evaluation and management. When I saw the patient in the emergency department is awake, alert, oriented x3. Patient in no respiratory distress. Patient does appear mildly overloaded, patient does not appear septic. Patient be admitted for further evaluation and management. - Past Medical/Surgical History Diabetic: Yes -: Diabetes mellitus type 2 -: hypertention -: CAD -: chronic systolic CHF -: Atrial fibrillation on chronic anticoagulation -: carotid stent -: CABG tup2016 -: BKA left leg -: Prostate surgery -: bladder surgery -: skin graft Psychosocial/ Personal History: Patient lives at home with his family - Family History Father -: Heart disease Mother -: Lung disease Notes: COPD, leaking heart valve, emphysema - Social History Smoking Status: Never smoker Alcohol use: No CD- Drugs: No Caffeine use: No Place of Residence: Home <SvetaTomi - Last Filed: 02/08/20 05:38> Date of Service: 02/08/20 <Maris Chao - Last Filed: 02/09/20 06:08> Allergies meperidine [From Demerol] Allergy (Verified 02/08/20 05:56) Unknown pseudoephedrine Allergy (Verified 02/08/20 05:56) Hives acetaminophen [From Vicodin] Adverse Reaction (Verified 02/08/20 05:56) Nausea/Vomiting codeine Adverse Reaction (Verified 02/08/20 05:56) Nausea/Vomiting hydrocodone bitartrate [From Vicodin] Adverse Reaction (Verified 02/08/20 05:56) Nausea/Vomiting fedrazil Allergy (Mild, Uncoded 02/08/20 05:56) Unknown Home Medications: Finasteride [Proscar*] 5 mg PO DAILY 04/14/18 Insulin Degludec [Tresiba Flextouch U-200] 40 units SQ DAILY 04/14/18 Liothyronine [Cytomel*] 1 tab PO DAILY 04/14/18 Losartan Potassium [Cozaar*] 50 mg PO DAILY 04/14/18 Tamsulosin HCl 0.4 mg PO DAILY 04/14/18 Vit C/Ascorb Sod/Multivit-Min [Emergen-C 500 mg Chewable Tab] 1,000 mg PO DAILY 04/14/18 Bumetanide [Bumex*] 1 mg PO DAILY 06/24/18 Famotidine 1 tab PO DAILY 05/26/19 Zinc 1 tab PO DAILY 05/26/19 Apixaban [Eliquis] 5 mg PO BID #60 tablet 05/28/19 Sotalol HCl [Betapace*] 80 mg PO BID 6AM 6PM #60 tab 05/28/19 Glipizide [Glipizide ER] 10 mg PO BID 02/08/20 Review of Systems 10-point ROS is otherwise unremarkable Respiratory: Cough, Shortness of Breath, SOB with Excertion <Tomi Bangura - Last Filed: 02/08/20 05:38> Physical Examination - Physical Exam General: Alert, In no apparent distress HEENT: Atraumatic, PERRLA, Mucous membr. moist/pink Neck: Supple, 2+ carotid pulse no bruit, No LAD Respiratory: Normal air movement, Crackles/rales (Crackles in lung bases bilateral) Cardiovascular: Normal S1 S2, Irregular heart rate/rhythm (Atrial fibrillation, rate controlled) Gastrointestinal: Normal bowel sounds, No tenderness Musculoskeletal: No tenderness Integumentary: No rashes Neurological: Normal gait, Normal speech, Normal strength at 5/5 x4 extr, Normal tone, Normal affect - Studies Laboratory Data (last 24 hrs) 02/08/20 04:30: PT 16.3 H, INR 1.39 02/08/20 03:55: WBC 6.0, Hgb 12.6 L, Hct 37.5 L, Plt Count 185 02/08/20 03:55: Sodium 139, Potassium 4.8, BUN 34 H, Creatinine 1.48 H, Glucose 88, Magnesium 2.5 H, Total Bilirubin 0.6, AST 20, ALT 20, Alkaline Phosphatase 92, Lipase 130 Microbiology Data (last 24 hrs): 02/08/20 04:30 Nasopharnyx Influenza Type A Antigen Screen - Final 02/08/20 04:30 Nasopharnyx Influenza Type B Antigen Screen - Final <Tomi Bangura - Last Filed: 02/08/20 05:38> - Studies Microbiology Data (last 24 hrs): 02/08/20 04:30 Nasopharnyx Influenza Type A Antigen Screen - Final 02/08/20 04:30 Nasopharnyx Influenza Type B Antigen Screen - Final <Maris Chao - Last Filed: 02/09/20 06:08> Assessment and Plan - Plan Assessment Acute on chronic systolic congestive heart failure Dyspnea-suspected pneumonia Atrial fibrillation on chronic anticoagulation therapy Diabetes mellitus type 2 CKD 3 Hypertension Plan Acute on chronic systolic congestive heart failure: Monitor on telemetry, IV Lasix for diuresis. 1500 cc per day fluid restriction. DVT prophylaxis, continue Eliquis 5 mg p.o. b.i.d.. Dyspnea-suspected pneumonia: Continue with Rocephin/Zithromax. Blood cultures were obtained in the ER, follow these up. Daily labs. Atrial fibrillation on chronic anticoagulation therapy: Continue Eliquis and sotalol. Diabetes mellitus type 2: A.c. HS Accu-Cheks, sliding scale insulin therapy. CKD 3: Appears stable at this time, continue diuresis. Consult nephrology as necessary. Hypertension: Continue home medications losartan and sotalol. Discharge Plan: Home Plan to discharge in: 24 Hours - Advance Directives Does patient have a Living Will: No Does patient have a Durable POA for Healthcare: Yes - Code Status/Comfort Care Code Status Assessed: Yes (Full code) Critical Care: No Time Spent Managing Pts Care (In Minutes): 55 <Tomi Bangura - Last Filed: 02/08/20 05:38> Date of Service: 02/08/20 Agree with findings as mentioned above. Patient is clinically still short of breath and coughing and congested. His COVID-19 test came back positive. Will continue with current plan of care. We may have a dose of steroids if he starts getting hypoxic. Currently he is afebrile and his clinical symptoms appear to be stable. Will monitor him for any diarrhea or respiratory distress. <Maris Chao - Last Filed: 02/09/20 06:08>
[2020-02-08] MEDS ORDERED: ACETAMINOPHEN 500 MG TAB PO PRN (06:04)
[2020-02-08] MEDS ORDERED: ONDANSETRON 4 MG/2 ML VIAL IV PRN (06:04)
[2020-02-08] MEDS: SOTALOL HCL 80 MG TAB PO SCH ×2 (06:04→17:10)
[2020-02-08] MEDS ORDERED: SOTALOL HCL 80 MG TAB ONE (06:47)
--- NOTE | 2020-02-08 07:15 | RAD REPORT ---
EXAM DESCRIPTION: RAD - Chest Single View - 02/08/2020 3:48 am CLINICAL HISTORY: COUGH COMPARISON: Portable May 2019 TECHNIQUE: AP portable chest image was obtained 02/08/2020 3:48 am . FINDINGS: Lung volumes are very low. No peripheral mass or consolidations seen. Interstitial pattern is accentuated by the exam limitations. Edema and infiltrate are potentially masked. Enlarged cardia c silhouette with prominent pericardial fat pad is again noted. Sternotomy wires are in place. No roman surable pleural effusion and no pneumothorax. No acute bony abnormality seen. No acute aortic finding s suspected. IMPRESSION: Exam is significantly limited. Cardiomegaly and increased interstitial opacification present. This is mostly or entirely chronic fin dings. Early edema or infiltrate potentially masked.
[2020-02-08] MEDS: INSULIN -REGULAR HUMAN 50 UNIT/0.5 ML ML SQ SCH ×4 (07:30→20:11)
[2020-02-08] MEDS: LOSARTAN POTASSIUM 50 MG TABLET PO SCH ×2 (08:15→08:25)
[2020-02-08] MEDS: APIXABAN 5 MG TABLET PO SCH ×2 (08:23→20:11)
[2020-02-08] MEDS: FUROSEMIDE 40 MG/4 ML VIAL IV SCH ×2 (08:24→17:09)
[2020-02-08] MEDS ORDERED: CEFTRIAXONE/SWI 1gm 1 GM/10 ML SYR ONE (08:31)
[2020-02-08] MEDS ORDERED: CEFTRIAXONE/SWI 1gm 1 GM/10 ML SYR IV SCH (09:00)
[2020-02-08] MEDS ORDERED: AZITHROMYCIN IV 500 MG in NA CHLORIDE 0.9% 250 ML IVPB SCH (09:00)
[2020-02-08] MEDS ORDERED: CEFTRIAXONE 1 GM/NS 50 ML 1 GM/50 ML BAG IV SCH (09:00)
[2020-02-08] MEDS ORDERED: HYDROCODONE/CHLORPHEN 5 ML/OSYR PO ONE (09:06)
[2020-02-08] MEDS ORDERED: HYDROCODONE/CHLORPHEN 5 ML/OSYR ONE (11:18)
[2020-02-08] MEDS: BENZONATATE 100 MG CAP PO PRN (14:36)
[2020-02-08] MEDS ORDERED: FUROSEMIDE 40 MG/4 ML VIAL IV ONE (17:00)
[2020-02-09 05:35] LABS: Absolute Lymphocytes (CBC) 0.4 K/uL (0.7-4.9); Basophils % 0.6 % (0-1.3); Hematocrit 35.5 % (39.6-49.0); Lymphocytes % 10.1 % (15.3-44.8); MPV 8.1 fL (7.6-11.3); RBC Red Blood Cell Count 4.21 M/uL (4.33-5.43)
[2020-02-09 05:44] LABS: Magnesium 2.2 mg/dL (1.8-2.4); Potassium 4.2 mmol/L (3.5-5.1)
[2020-02-09] MEDS: SOTALOL HCL 80 MG TAB PO SCH ×2 (05:56→17:01)
--- NOTE | 2020-02-09 06:07 | EKG ---
Test Date: 2020-02-08 Test Time: 03:42:29 Container Maker: MEASUREMENT RESULTS: Intervals: Rate: 57 TN: 218 QRSD: 102 QT: 472 QTc: 459 [place]: P: 36 TN: 218 QRS: 110 T: 41 INTERPRETIVE STATEMENTS: Sinus bradycardia with 1st degree AV block Right axis deviation Nonspecific T wave abnormality Abnormal ECG Compared to ECG 05/27/2019 08:18:29 Sinus rhythm no longer present Possible ischemia no longer present T-wave abnormality still present Electronically Signed On 02-09-20 06:03:19 RULING MACHINE OPERATOR by Haresh Kelley
--- NOTE | 2020-02-09 06:09 | P.PN ---
Subjective Date of Service: 02/09/20 Patient started desatting. His oxygen saturations when I was talking with then went down to 87% on room air. The nurses have reported that he was down to 90% around lunchtime. Concerned that he would develop more severe symptoms of COVID-19 pneumonia. Repeat chest x-ray and lab data. Patient also with c ongestive heart failure symptoms. Continue with diuresing patient aggressively. If chest x-ray shows infiltrates will also get pulmonary consultation. Will add steroids to patient's regimen. I have talked to him and he said he does not feel well. He feels a little more short of breath today. He is concerned because of his diagnosis. Will monitor him closely. Review of Systems 10-point ROS is otherwise unremarkable Physical Examination - Vital Signs Temperature: 97.6 F Blood Pressure: 101/50 Pulse: 60 Respirations: 12 Pulse Ox (%): 87 - Physical Exam General: Alert, In no apparent distress, Oriented x3, Mild distress HEENT: Atraumatic, PERRLA, EOMI Neck: Supple, JVD not distended Respiratory: Diminished, Crackles/rales, Expiratory wheezes Cardiovascular: Regular rate/rhythm, Normal S1 S2, Systolic murmur Gastrointestinal: Normal bowel sounds, Soft and benign, Non-distended, No tenderness Musculoskeletal: No clubbing, No swelling, No tenderness Integumentary: No rashes Neurological: Normal speech, Normal tone, Normal affect Lymphatics: No axilla or inguinal lymphadenopathy - Studies Microbiology Data (last 24 hrs): 02/08/20 04:30 Nasopharnyx Influenza Type A Antigen Screen - Final 02/08/20 04:30 Nasopharnyx Influenza Type B Antigen Screen - Final Medications List Reviewed: Yes Assessment & Plan - Problems (Diagnosis) (1) Acute diastolic CHF (congestive heart failure) Current Visit: Yes Status: Acute (2) Pneumonia due to COVID-19 virus Current Visit: Yes Status: Acute (3) Chronic kidney disease, stage 3 Current Visit: Yes Status: Acute (4) Type 2 diabetes mellitus with diabetic foot infection Current Visit: No Status: Resolved - Plan 1. Echocardiogram pending 2. Patient remains hypoxic. O2 sats were 87% today on room air. He did come up to 93% after I had him take some deep breaths. But of concern because he has dropped his sats over the last 24 hr quite significantly. May start him on 2 L of oxygen. 3. We will start patient on a Beta naheed 4. Cardiology consultation appreciated 5. Aggressive diuresis 6. Strict I's and O's 7. Repeat CXR 8. Daily weights 9. Add IV steroids and check inflammatory markers 10. Education regarding diet and treatment of congestive heart failure Discharge Plan: Home Plan to discharge in: Greater than 2 days - Advance Directives Does patient have a Living Will: No Does patient have a Durable POA for Healthcare: No - Code Status/Comfort Care Code Status Assessed: Yes Code Status: Full Code Critical Care: No Time Spent Managing PTS Care (In Minutes): 35
[2020-02-09] MEDS: INSULIN -REGULAR HUMAN 50 UNIT/0.5 ML ML SQ SCH ×4 (07:30→20:14)
[2020-02-09] MEDS: LOSARTAN POTASSIUM 50 MG TABLET PO SCH (09:18)
[2020-02-09] MEDS: FUROSEMIDE 40 MG/4 ML VIAL IV SCH (09:18)
[2020-02-09] MEDS: APIXABAN 5 MG TABLET PO SCH ×2 (09:18→20:03)
[2020-02-09] MEDS: AZITHROMYCIN 250 MG TAB PO SCH (09:47)
[2020-02-09 10:18] LABS: Platelet Estimate ADEQ
[2020-02-09 10:19] LABS: Blood Morphology Comment NOT SEEN (NOT SEEN)
[2020-02-09] MEDS: BENZONATATE 100 MG CAP PO PRN (11:03)
[2020-02-09 12:01] LABS: C-Reactive Protein 79.4 mg/L (<3.00); Ferritin 170.6 ng/mL (26-388); Troponin I 0.04 ng/mL (0.0-0.045)
--- NOTE | 2020-02-09 14:15 | P.CNS ---
Date of Consult: 02/09/20 Primary Care Provider: Dr. Greene Chief Complaint: Mancia virus pneumonia History of Present Illness: Patient is 74 years of age became sick over the weekend developed progressive shortness of breath CT the emergency room currently on room air feeling fine denies any other systemic symptoms multiple medical problems patient is anti coagulated Allergies meperidine [From Demerol] Allergy (Verified 02/08/20 05:56) Unknown pseudoephedrine Allergy (Verified 02/08/20 05:56) Hives acetaminophen [From Vicodin] Adverse Reaction (Verified 02/08/20 05:56) Nausea/Vomiting codeine Adverse Reaction (Verified 02/08/20 05:56) Nausea/Vomiting hydrocodone bitartrate [From Vicodin] Adverse Reaction (Verified 02/08/20 05:56) Nausea/Vomiting fedrazil Allergy (Mild, Uncoded 02/08/20 05:56) Unknown Home Medications: Finasteride [Proscar*] 5 mg PO DAILY 04/14/18 Insulin Degludec [Tresiba Flextouch U-200] 40 units SQ DAILY 04/14/18 Liothyronine [Cytomel*] 1 tab PO DAILY 04/14/18 Losartan Potassium [Cozaar*] 50 mg PO DAILY 04/14/18 Tamsulosin HCl 0.4 mg PO DAILY 04/14/18 Vit C/Ascorb Sod/Multivit-Min [Emergen-C 500 mg Chewable Tab] 1,000 mg PO DAILY 04/14/18 Bumetanide [Bumex*] 1 mg PO DAILY 06/24/18 Famotidine 1 tab PO DAILY 05/26/19 Zinc 1 tab PO DAILY 05/26/19 Apixaban [Eliquis] 5 mg PO BID #60 tablet 05/28/19 Sotalol HCl [Betapace*] 80 mg PO BID 6AM 6PM #60 tab 05/28/19 Glipizide [Glipizide ER] 10 mg PO BID 02/08/20 - Past Medical/Surgical History Diabetic: Yes -: Diabetes mellitus type 2 -: hypertention -: CAD -: chronic systolic CHF -: Atrial fibrillation on chronic anticoagulation -: carotid stent -: CABG quintuple 2016 -: BKA left leg -: Prostate surgery -: bladder surgery -: skin graft Psychosocial/ Personal History: Patient lives at home with his family - Family History Father Medical History: Heart disease Mother Medical History: Lung disease Notes: COPD, leaking heart valve, emphysema - Social History Smoking Status: Never smoker Alcohol use: No CD- Drugs: No Caffeine use: No Place of Residence: Home Review of Systems 10-point ROS is otherwise unremarkable General: Weakness Respiratory: Shortness of Breath Physical Examination Temp Pulse Resp BP Pulse Ox 97.6 F 60 12 101/50 L 87 L 02/09/20 13:44 02/09/20 13:44 02/09/20 13:44 02/09/20 13:44 02/09/20 13:44 General: Alert, Oriented x3 HEENT: Atraumatic Neck: Supple Respiratory: Diminished, Crackles/rales Cardiovascular: No edema, Normal S1 S2 Musculoskeletal: Other (Patient has below-knee amputation on the left leg) - Problems (1) Pneumonia due to COVID-19 virus Current Visit: Yes Status: Acute Plan: Patient is 74 years of age admitted with pneumonia due to mancia virus he is doing better room-air saturation satisfactory plan to discharge home tomorrow on prednisone 20 mg twice a day released a week and then 10 mg twice a day follow- up with me in 2 weeks
[2020-02-09] MEDS: METHYLPREDNISOLONE 40 MG INJ IV SCH (17:01)
[2020-02-10] MEDS: METHYLPREDNISOLONE 40 MG INJ IV SCH ×2 (00:48→08:09)
[2020-02-10] MEDS: SOTALOL HCL 80 MG TAB PO SCH (05:28)
[2020-02-10 06:06] VITALS: BMI 27.8
[2020-02-10 06:23] LABS: Absolute Lymphocytes (CBC) 0.3 K/uL (0.7-4.9); Basophils % 0.3 % (0-1.3); Hematocrit 40.2 % (39.6-49.0); Lymphocytes % 9.6 % (15.3-44.8); MPV 7.9 fL (7.6-11.3); RBC Red Blood Cell Count 4.76 M/uL (4.33-5.43)
[2020-02-10 06:58] LABS: Bilirubin Total 0.8 mg/dL (0.2-1.0); Magnesium 2.2 mg/dL (1.8-2.4); Phosphorus 3.6 mg/dL (2.5-4.9); Potassium 4.8 mmol/L (3.5-5.1); Protein, Total 7.2 g/dL (6.4-8.2)
[2020-02-10] MEDS: LOSARTAN POTASSIUM 50 MG TABLET PO SCH (08:08)
[2020-02-10] MEDS: INSULIN -REGULAR HUMAN 50 UNIT/0.5 ML ML SQ SCH ×2 (08:09→11:46)
[2020-02-10] MEDS: APIXABAN 5 MG TABLET PO SCH (08:09)
[2020-02-10] MEDS: AZITHROMYCIN 250 MG TAB PO SCH (08:10)
[2020-02-10 08:34] LABS: Blood Morphology Comment NOT SEEN (NOT SEEN); Platelet Estimate ADEQ; White Blood Cell Scan OK (OK)
--- NOTE | 2020-02-10 08:36 | RAD REPORT ---
EXAM DESCRIPTION: RAD - Chest Single View - 02/10/2020 5:20 am CLINICAL HISTORY: pneumonia Chest pain. COMPARISON: Chest Single View dated 02/08/2020; Chest Single View dated 05/26/2019; Chest Single View dated 04/13/2018; Chest Single View dated 08/03/2017 FINDINGS: Portable technique limits examination quality. [id number] bilateral interstitial lung opacities again noted favored to represent interstitial pulmonary edema or interstitial pneumonia. The heart is moderately enlarged in size. Sternotomy wires . IMPRESSION: Stable chest since 02/08/2020.
[2020-02-10] MEDS ORDERED: FUROSEMIDE 40 MG/4 ML VIAL IV SCH (09:00)
[2020-02-10 13:21] VITALS: BP 139/69; TEMP 98.9
[2020-02-10 13:45] VITALS: O2SAT 92
--- NOTE | 2020-02-10 14:09 | P.DS ---
Discharge Date: 02/10/20 Primary Care Provider: Dr. 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 Patient reports that he has also had some nausea and dry heaving. Patient was evaluated in the emergency department labs significant for creatinine 1.48, GFR 47, BUN 34 which is around his baseline and elevated BNP 55[address]. White blood cell count 6.0 hemoglobin 12.6 hematocrit 37.5. Chest x-ray appears to show mild overload with questionable pneumonia. Patient given IV antibiotics and Lasix in the emergency department, ED provider wishes to admit patient for further evaluation and management. When I saw the patient in the emergency department is awake, alert, oriented x3. Patient in no respiratory distress. Patient does appear mildly overloaded, patient does not appear septic. Patient be admitted for further evaluation and management. Hospital Course: Patient has done well during hospital stay. Patient was seen by pulmonary. Recommendation is to discharged with Outpatient follow up. continue with anticoagulation and steroids. Inhaler therapy as needed. Return to the Emergency room if symptoms worsen. Vital Signs/Physical Exam: Temp Pulse Resp BP Pulse Ox 98.9 F 58 20 139/69 93 02/10/20 12:00 02/10/20 12:00 02/10/20 12:00 02/10/20 12:00 02/10/20 12:00 General: Alert, In no apparent distress, Oriented x3 Laboratory Data at Discharge: WBC 2.6 K/uL (4.3-10.9) L D 02/10/20 06:11 Hgb 13.7 g/dL (13.6-17.9) 02/10/20 06:11 Hct 40.2 % (39.6-49.0) 02/10/20 06:11 Plt Count 189 K/uL (152-406) 02/10/20 06:11 PT 16.3 SECONDS (9.5-12.5) H 02/08/20 04:30 INR 1.39 02/08/20 04:30 Sodium 135 mmol/L (136-145) L 02/10/20 06:11 Potassium 4.8 mmol/L (3.5-5.1) 02/10/20 06:11 BUN 37 mg/dL (7-18) H 02/10/20 06:11 Creatinine 1.66 mg/dL (0.55-1.3) H 02/10/20 06:11 Glucose 307 mg/dL (74-106) H 02/10/20 06:11 Phosphorus 3.6 mg/dL (2.5-4.9) 02/10/20 06:11 Magnesium 2.2 mg/dL (1.8-2.4) 02/10/20 06:11 Total Bilirubin 0.8 mg/dL (0.2-1.0) 02/10/20 06:11 AST 17 U/L (15-37) 02/10/20 06:11 ALT 21 U/L (12-78) 02/10/20 06:11 Alkaline Phosphatase 88 U/L (45-117) 02/10/20 06:11 Troponin I 0.04 ng/mL (0.0-0.045) 02/09/20 11:02 Lipase 130 U/L (73-393) 02/08/20 03:55 Home Medications: Finasteride [Proscar*] 5 mg PO DAILY 04/14/18 Insulin Degludec [Tresiba Flextouch U-200] 40 units SQ DAILY 04/14/18 Liothyronine [Cytomel*] 1 tab PO DAILY 04/14/18 Losartan Potassium [Cozaar*] 50 mg PO DAILY 04/14/18 Tamsulosin HCl 0.4 mg PO DAILY 04/14/18 Vit C/Ascorb Sod/Multivit-Min [Emergen-C 500 mg Chewable Tab] 1,000 mg PO DAILY 04/14/18 Bumetanide [Bumex*] 1 mg PO DAILY 06/24/18 Famotidine 1 tab PO DAILY 05/26/19 Zinc 1 tab PO DAILY 05/26/19 Apixaban [Eliquis] 5 mg PO BID #60 tablet 03/07/20 Sotalol HCl [Betapace*] 80 mg PO BID 6AM 6PM #60 tab 05/28/19 Glipizide [Glipizide ER] 10 mg PO BID 02/08/20 Benzonatate [Tessalon Perle*] 200 mg PO TID PRN #30 cap 02/10/20 New Medications: Benzonatate [Tessalon Perle*] 200 mg PO TID PRN #30 cap PRN Reason: Cough Patient Discharge Instructions: OK TO DC IV AND DC HOME. FOLLOW-UP WITH PRIMARY CARE PROVIDER IN 1-2 WEEKS. FOLLOW-UP WITH pulmonary and cardiology IN 1-2 WEEKS. RETURN TO THE ER IF symptoms worsen. CALL DR. GARCIA AT [phone] IF ANY QUESTIONS REGARDING HOSPITAL STAY. PLEASE CALL THE FLOOR AT [phone] IF ANY MEDICATION OR NURSING QUESTIONS. Diet: Renal Activity: Fall precautions Followup: Kevin Mueller MD [ACTIVE - CAN ADMIT] - NONE,NONE [Primary Care Provider] - Time spent managing pt's care (in minutes): 35
== END 2020-02-10 13:25 | disposition home or self-care (01) ==
LOC: ER 03:19 → ERHOLD 05:36 → 3RD-ICU 11:39
PROVIDERS: ADMIT Hospitalist; ATTEND Hospitalist
DX: U07.1 COVID-19 (principal); J12.89 Other viral pneumonia; I13.0 Hypertensive heart and chronic kidney disease with heart failure and stage 1 through stage 4 chronic kidney disease, or unspecified chronic kidney disease; N18.30 Chronic kidney disease, stage 3 unspecified; I50.23 Acute on chronic systolic (congestive) heart failure; E11.22 Type 2 diabetes mellitus with diabetic chronic kidney disease; Z79.4 Long term (current) use of insulin; I25.10 Atherosclerotic heart disease of native coronary artery without angina pectoris; Z79.01 Long term (current) use of anticoagulants; I48.91 Unspecified atrial fibrillation; Z95.1 Presence of aortocoronary bypass graft; Z89.512 Acquired absence of left leg below knee; R94.31 Abnormal electrocardiogram [ECG] [EKG]; E11.628 Type 2 diabetes mellitus with other skin complications; L08.9 Local infection of the skin and subcutaneous tissue, unspecified
CPT/HCPCS: 96365; 96367; 93005; 87040 ×2; 87088; 85025 ×3; 87086; 80048 ×2; 36415 ×3; 83735 ×3; 84100; 85610; 82947 ×11; 85379; 80076; 83605; 84484 ×4; 82728; 83690; 80053; 84145; 83880 ×3; 86140; 87804 ×2; 71045 ×2; 96375; 99285; U0003; J1940 ×5; J0456 ×2; J2543; J0696; J7050 ×2; J7030; J2405; J2920 ×3; G0378 ×4

== ENCOUNTER 2020-02-12 19:43 | Inpatient (IN) | payer BC ==
[2020-02-12 20:39] LABS: Absolute Lymphocytes (CBC) 0.3 K/uL (0.7-4.9); Basophils % 0.2 % (0-1.3); Hematocrit 39.4 % (39.6-49.0); Lymphocytes % 5.2 % (15.3-44.8); MPV 7.8 fL (7.6-11.3); RBC Red Blood Cell Count 4.74 M/uL (4.33-5.43)
[2020-02-12 20:42] LABS: Protime INR 1.27
[2020-02-12 21:00] LABS: Bilirubin Direct 0.2 mg/dL (0-0.2); Magnesium 2.3 mg/dL (1.8-2.4); Potassium 5.2 mmol/L (3.5-5.1); Troponin (Emerg Dept Use Only) 0.05 ng/mL (0.0-0.045)
--- NOTE | 2020-02-12 21:20 | RAD REPORT ---
EXAM DESCRIPTION: RAD - Chest Single View - 02/12/2020 8:56 pm CLINICAL HISTORY: generalized weakness Chest pain. COMPARISON: Chest Single View dated 02/10/2020; Chest Single View dated 02/08/2020; Chest Single Vie w dated 05/26/2019; Chest Single View dated 04/13/2018 FINDINGS: Portable technique limits examination quality. Moderate bilateral interstitial lung prominence is seen which probably represents a viral pneumonitis /bronchitis. The heart is prominent in size with changes of a prior CABG. No displaced fractures. IMPRESSION: Moderate viral pneumonitis/bronchitis pattern.
--- NOTE | 2020-02-12 22:46 | EDPHYS ---
Physician Documentation [facility] Name: Navjot Collins Age: 74 yrs Sex: Male : 1945 Arrival Date: 02/12/2020 Time: 19:51 Bed 18 Private MD: ED Physician Duglas Burnham HPI: 02/11 20:09 This 74 yrs old Male presents to ER via EMS with complaints of Generalized pm1 weakness, covid positive. 20:09 The patient presents to the emergency department with weakness of the entire body, pm1 generalized weakness. 20:09 Onset: The symptoms/episode began/occurred today. Associated signs and symptoms: pm1 Pertinent positives: fever, shortness of breath, Pertinent negatives: chest pain. Severity of symptoms: in the emergency department the symptoms are worse. Current symptoms: bodyaches. The patient has been recently been admitted at [facility], was discharged last week. Patient was hospitalized last week with covid and was discharged 3 days ago. He was doing fine Thursday and Thursday, but this morning he started getting a fever and having generalized weakness. On EMS arrival the patient RA O2 sat was 89%. Historical: - Allergies: 19:57 Codeine; jb4 19:57 Demerol; jb4 19:57 fedrazil; jb4 19:57 Vicodin; jb4 - Home Meds: 19:57 bumetanide 1 mg Oral tab 1 tab once daily [Active]; Eliquis 5 mg Oral tab 1 tab 2 times jb4 per day [Active]; famotidine 20 mg Oral tab 1 tab once daily [Active]; finasteride 5 mg Oral tab 1 tab once daily [Active]; gabapentin 300 mg Oral cap 1 cap as needed [Active]; sotalol 80 mg Oral tab 1 tab daily [Active]; losartan 50 mg Oral tab 1 tab once daily [Active]; tamsulosin 0.4 mg Oral cp24 1 cap once daily [Active]; Tresiba 40 units once daily [Active]; vit c [Active]; zinc [Active]; - PMHx: 19:57 CHF; Diabetes - IDDM; HTN; PROSTATE CA; jb4 - PSHx: 19:57 None; RBTK amputation; jb4 - Immunization history:: Adult Immunizations up to date. - Social history:: Smoking status: Patient denies any tobacco usage or history of. Patient/guardian denies using alcohol, street drugs. ROS: 20:09 ENT: Negative for injury, pain, and discharge, Neck: Negative for injury, pain, and pm1 swelling, Cardiovascular: Negative for chest pain, palpitations, and edema. 20:09 Abdomen/GI: Negative for abdominal pain, nausea, vomiting, diarrhea, and constipation, Back: Negative for injury and pain, MS/Extremity: Negative for injury and deformity, Skin: Negative for injury, rash, and discoloration, Neuro: Negative for headache, weakness, numbness, tingling, and seizure. 20:09 Constitutional: Positive for body aches, fever, poor PO intake. 20:09 Respiratory: Positive for cough, shortness of breath, Negative for wheezing. Exam: 20:09 Constitutional: This is a well developed, well nourished patient who is awake, alert, pm1 and in no acute distress. Head/Face: Normocephalic, atraumatic. Chest/axilla: Normal chest wall appearance and motion. Nontender with no deformity. No lesions are appreciated. Respiratory: Lungs have equal breath sounds bilaterally, clear to auscultation and percussion. No rales, rhonchi or wheezes noted. No increased work of breathing, no retractions or nasal flaring. Abdomen/GI: Soft, non-tender, with normal bowel sounds. No distension or tympany. No guarding or rebound. No evidence of tenderness throughout. Back: No spinal tenderness. No costovertebral tenderness. Full range of motion. Skin: Warm, dry with normal turgor. Normal color with no rashes, no lesions, and no evidence of cellulitis. MS/ Extremity: Pulses equal, no cyanosis. Neurovascular intact. Full, normal range of motion. 20:09 Cardiovascular: Exam negative for acute changes, Rate: normal, Rhythm: regular, Pulses: 20:09 Neuro: Orientation: is normal, Mentation: is normal, Motor: is normal, moves all fours. Vital Signs: 19:52 BP 128 / 68; Pulse 69; Resp 16; Temp 100.5(O); Pulse Ox 96% on R/A; Weight 95.25 kg jb4 (R); Height 6 ft. 2 in. (187.96 cm); Pain 0/10; 21:00 BP 123 / 59; Pulse 67; Resp 19; Temp 100.3(O); Pulse Ox 96% on R/A; jb4 22:00 BP 108 / 50; Pulse 62; Resp 16; Pulse Ox 94% on R/A; jb4 22:43 BP 107 / 48; Pulse 67; Resp 17; Temp 99.2(O); Pulse Ox 81% on R/A; jb4 23:45 BP 107 / 57; Pulse 66; Resp 16; Pulse Ox 97% on 2 lpm NC; 4 02/12 00:45 BP 117 / 86; Pulse 69; Resp 16; Temp 98.4(O); Pulse Ox 98% on 2 lpm NC; 4 01:30 BP 102 / 51; Pulse 88; Resp 16; Pulse Ox 98% on 2 lpm NC; [facility] 02/11 19:52 Body Mass Index 26.96 (95.25 kg, 187.96 cm) [facility] 02/11 22:43 Pt resting in bed. Provider notified of O2 levels, pt placed on nasal cannula. [facility] MDM: 20:01 Patient medically screened. pm1 22:42 Data reviewed: vital signs. pm1 22:42 Counseling: I had a detailed discussion with the patient and/or guardian regarding: the pm1 historical points, exam findings, and any diagnostic results supporting the discharge/admit diagnosis, lab results, radiology results, the need for further work-up and treatment in the hospital, due to hypoxia. 22:45 ED course: Patient with RA sat of 86% while talking. Elevated troponin, like demand pm1 ischemia from hypoxia related to covid. Patient without home O2. Patient meets criteria for admission. 02/11 20:08 Order name: Basic Metabolic Panel; Complete Time: 00:16 pm1 02/11 20:08 Order name: CBC with Diff; Complete Time: 20:41 pm1 02/11 20:08 Order name: LFT's; Complete Time: 00:16 pm1 02/11 20:08 Order name: Magnesium; Complete Time: 00:16 pm1 02/11 20:08 Order name: NT PRO-BNP; Complete Time: 00:16 pm1 02/11 20:08 Order name: PT-INR; Complete Time: 20:46 pm1 02/11 20:08 Order name: Troponin (emerg Dept Use Only); Complete Time: 00:16 pm1 02/11 20:08 Order name: XRAY Chest (1 view); Complete Time: 21:22 pm1 02/11 20:08 Order name: EKG; Complete Time: 20:09 pm1 02/11 20:08 Order name: Procalcitonin; Complete Time: 21:20 pm1 02/11 20:08 Order name: Lactate; Complete Time: 21:10 pm1 02/11 23:07 Order name: COVID-19 jb4 02/11 23:17 Order name: CRP la1 02/12 00:14 Order name: C-Reactive Protein; Complete Time: 00:16 EDMS 02/11 20:08 Order name: Cardiac monitoring; Complete Time: 21:04 pm1 02/11 20:08 Order name: EKG - Nurse/Tech; Complete Time: 21:04 pm1 02/11 20:08 Order name: IV Saline Lock; Complete Time: 20:35 pm1 02/11 20:08 Order name: Labs collected and sent; Complete Time: 20:35 pm1 02/11 20:08 Order name: O2 Per Protocol; Complete Time: 20:35 pm1 02/11 20:08 Order name: O2 Sat Monitoring; Complete Time: 20:35 pm1 Administered Medications: No medications were administered Disposition: 02/12 06:07 Co-signature as Attending Physician, Duglas Burnham MD. 7 Disposition: 02/12/20 22:45 Hospitalization ordered by Nathan Soler for Observation. Preliminary diagnosis are Coronavirus infection, unspecified, Hypoxia. - Bed requested for Intensive Care Unit. - Status is Observation. rosa - Condition is Stable. - Problem is new. - Symptoms have improved. Signatures: Dispatcher [employer] EDMS Raina Perez RN Tomi Gallardo FNP-C CRUISE AGENT-Cla1 Donnie Duran, ICE SKATING TEACHER ICE SKATING TEACHER pm1 Adan Harley, RN RN jb4 [place] Maurice, MD MD 7 Corrections: (The following items were deleted from the chart) 02/11 22:49 22:45 Hospitalization Ordered by Tomi DAVALOS-C for Observation. Preliminary dw diagnosis is Coronavirus infection, unspecified; Hypoxia. Bed requested for Telemetry/MedSurg (observation). Status is Observation. Condition is Stable. Problem is new. Symptoms have improved. pm1 22:59 22:49 02/12/2020 22:45 Hospitalization Ordered by Tomi PHIPPS for Observation. la1 Preliminary diagnosis is Coronavirus infection, unspecified; Hypoxia. Bed requested for Intensive Care Unit. Status is Observation. Condition is Stable. Problem is new. Symptoms have improved. dw 02/12 01:47 02/11 22:59 02/12/2020 22:45 Hospitalization Ordered by Nathan Soler DO for wh Observation. Preliminary diagnosis is Coronavirus infection, unspecified; Hypoxia. Bed requested for Intensive Care Unit. Status is Observation. Condition is Stable. Problem is new. Symptoms have improved. la1
--- NOTE | 2020-02-12 22:46 | ER ---
Nurse's Notes [facility] Name: Navjot Collins Age: 74 yrs Sex: Male : 1945 Arrival Date: 02/12/2020 Time: 19:51 Bed 18 Private MD: Diagnosis: Coronavirus infection, unspecified;Hypoxia Presentation: 02/11 19:52 Chief complaint: EMS states: Pt was released on Thursday from the Covid unit. He is jb4 positive. Tonight he is complaining of Generalized weakness and overall just feeling bad. His O2 at home was 89% on RA and had a temp of 102. Placed on 2L NC, given 1 G of Tylenol PO. BGL was 208. Coronavirus screen: Client denies travel out of the [place] in the last 14 days. At this time, the client does not indicate any symptoms associated with coronavirus-19. Ebola Screen: No symptoms or risks identified at this time. Initial Sepsis Screen: Does the patient meet any 2 criteria? Temp <36.0*C (96.8*F)) or > 38.3*C (100.9*F). Yes Does the patient have a suspected source of infection? No. Patient's initial sepsis screen is negative. Risk Assessment: Do you want to hurt yourself or someone else? Patient reports no desire to harm self or others. Onset of symptoms was February 12, 2020. Transition of care: patient was not received from another setting of care. 19:52 Method Of Arrival: EMS: [facility] jb4 19:52 Acuity: ZENAIDA 3 jb4 Historical: - Allergies: 19:57 Codeine; jb4 19:57 Demerol; jb4 19:57 fedrazil; jb4 19:57 Vicodin; jb4 - Home Meds: 19:57 bumetanide 1 mg Oral tab 1 tab once daily [Active]; Eliquis 5 mg Oral tab 1 tab 2 times jb4 per day [Active]; famotidine 20 mg Oral tab 1 tab once daily [Active]; finasteride 5 mg Oral tab 1 tab once daily [Active]; gabapentin 300 mg Oral cap 1 cap as needed [Active]; sotalol 80 mg Oral tab 1 tab daily [Active]; losartan 50 mg Oral tab 1 tab once daily [Active]; tamsulosin 0.4 mg Oral cp24 1 cap once daily [Active]; Tresiba 40 units once daily [Active]; vit c [Active]; zinc [Active]; - PMHx: 19:57 CHF; Diabetes - IDDM; HTN; PROSTATE CA; jb4 - PSHx: 19:57 None; RBTK amputation; jb4 - Immunization history:: Adult Immunizations up to date. - Social history:: Smoking status: Patient denies any tobacco usage or history of. Patient/guardian denies using alcohol, street drugs. Screenin:57 Abuse screen: Denies threats or abuse. Nutritional screening: No deficits noted. jb4 Tuberculosis screening: Fall Risk None identified. Assessment: 19:57 General: Appears in no apparent distress. comfortable, Behavior is calm, cooperative, jb4 appropriate for age. Pain: Denies pain. Neuro: Level of Consciousness is awake, alert, obeys commands, Oriented to person, place, time, situation. Cardiovascular: Patient's skin is warm and dry. Respiratory: Airway is patent Respiratory effort is even, unlabored, Respiratory pattern is regular, symmetrical, Denies shortness of breath. GI: No signs and/or symptoms were reported involving the gastrointestinal system. : No signs and/or symptoms were reported regarding the genitourinary system. EENT: No signs and/or symptoms were reported regarding the EENT system. Derm: Skin is intact, Skin is pink, warm \T\ dry. Musculoskeletal: Circulation, motion, and sensation intact. Range of motion: intact in all extremities. 21:00 Reassessment: Patient appears in no apparent distress at this time. Patient and/or jb4 family updated on plan of care and expected duration. Pain level reassessed. Patient is alert, oriented x 3, equal unlabored respirations, skin warm/dry/pink. 22:00 Reassessment: Patient appears in no apparent distress at this time. Patient and/or jb4 family updated on plan of care and expected duration. Pain level reassessed. Patient is alert, oriented x 3, equal unlabored respirations, skin warm/dry/pink. 23:00 Reassessment: Patient appears in no apparent distress at this time. Patient and/or jb4 family updated on plan of care and expected duration. Pain level reassessed. Patient is alert, oriented x 3, equal unlabored respirations, skin warm/dry/pink. 23:48 Reassessment: Patient appears in no apparent distress at this time. Patient and/or jb4 family updated on plan of care and expected duration. Pain level reassessed. Patient is alert, oriented x 3, equal unlabored respirations, skin warm/dry/pink. 02/12 00:00 Reassessment: attempted to call report, informed that the nurse could not take report jb4 and they would call back. 01:00 Reassessment: Patient appears in no apparent distress at this time. Patient and/or jb4 family updated on plan of care and expected duration. Pain level reassessed. Patient is alert, oriented x 3, equal unlabored respirations, skin warm/dry/pink. 01:45 Reassessment: Patient appears in no apparent distress at this time. Patient and/or jb4 family updated on plan of care and expected duration. Pain level reassessed. Patient is alert, oriented x 3, equal unlabored respirations, skin warm/dry/pink. Vital Signs: 02/11 19:52 BP 128 / 68; Pulse 69; Resp 16; Temp 100.5(O); Pulse Ox 96% on R/A; Weight 95.25 kg jb4 (R); Height 6 ft. 2 in. (187.96 cm); Pain 0/10; 21:00 BP 123 / 59; Pulse 67; Resp 19; Temp 100.3(O); Pulse Ox 96% on R/A; jb4 22:00 BP 108 / 50; Pulse 62; Resp 16; Pulse Ox 94% on R/A; jb4 22:43 BP 107 / 48; Pulse 67; Resp 17; Temp 99.2(O); Pulse Ox 81% on R/A; jb4 23:45 BP 107 / 57; Pulse 66; Resp 16; Pulse Ox 97% on 2 lpm NC; jb4 02/12 00:45 BP 117 / 86; Pulse 69; Resp 16; Temp 98.4(O); Pulse Ox 98% on 2 lpm NC; jb4 01:30 BP 102 / 51; Pulse 88; Resp 16; Pulse Ox 98% on 2 lpm NC; 4 02/11 19:52 Body Mass Index 26.96 (95.25 kg, 187.96 cm) [facility] 11/22 22:43 Pt resting in bed. Provider notified of O2 levels, pt placed on nasal cannula. [facility] ED Course: 19:51 Patient arrived in ED. jb4 19:54 Triage completed. jb4 19:57 Arm band placed on right wrist. jb4 19:57 Patient has correct armband on for positive identification. Bed in low position. Call [facility] light in reach. Side rails up X 1. Pulse ox on. NIBP on. 20:01 Donnie Duran NP is PHCP. pm1 20:01 Duglas Burnham MD is Attending Physician. pm1 20:16 Adan Harley, RN is Primary Nurse. jb4 20:34 Initial lab(s) drawn, by nc, sent to lab. Inserted saline lock: 20 gauge in right jp3 forearm, using aseptic technique. Blood collected. Patient maintains SpO2 saturation greater than 95% on room air. 20:57 XRAY Chest (1 view) In Process Unspecified. EDMS 22:45 Tomi Bangura FNP-C is Hospitalizing Provider. pm1 22:59 Nathan Soler DO is Hospitalizing Provider. sc1 02/12 00:16 No provider procedures requiring assistance completed. Patient admitted, IV remains in jb4 place. Administered Medications: No medications were administered Outcome: 02/11 22:45 Decision to Hospitalize by Provider. pm1 02/12 01:45 Admitted to ICU accompanied by nurse, via stretcher, room 7, with oxygen, with chart. [facility] Condition: stable Discharge instructions given to patient, Instructed on the need for admit, Demonstrated understanding of instructions. 01:47 Patient left the ED. Signatures: Dispatcher [employer] EDOK Tomi Bangura FNP-C COOKER SODA-Cla1 Donnie Duran NP ACCOUNTING TECHNICIAN pm1 Adan Harley, RN RN [facility] [place] Ilan Dougherty 3 Corrections: (The following items were deleted from the chart) 00:17 00:16 Discharged to [place] [id number]
[2020-02-13 00:14] LABS: C-Reactive Protein 61.6 mg/L (<3.00)
--- NOTE | 2020-02-13 00:14 | P.HP ---
Certification for Inpatient Patient admitted to: Inpatient With expected LOS: >2 Midnights Patient will require the following post-hospital care: None Practitioner: I am a practitioner with admitting privileges, knowledge of patient current condition, hospital course, and medical plan of care. Services: Services provided to patient in accordance with Admission requirements found in Title 42 Section 412.3 of the Code of Federal Regulations <Tomi Bangura - Last Filed: 02/13/20 00:09> Patient History Date of Service: 02/13/20 Primary Care Provider: Dr. Greene Reason for admission: COVID pneumonia History of Present Illness: 74-year-old male with history of diabetes mellitus type 2, chronic sy stolic congestive heart failure, chronic kidney disease stage III, CAD status post CABG, HIV presents emergency department for shortness of breath. Patient was recently admitted on 02/08/2020 for CHF exacerbation and COVID. Patient was diuresed and treated with IV steroids while in the hospital. Patient was discharged on home oxygen, patient was not sure if he was prescribed steroids are not but he has not been taking them. Patient became much more short of breath throughout the course of the day, reported that they had delivered his home oxygen but he did not attempt to utilize it. Patient presented to the emergency department for evaluation. During patient's evaluation in the emergency department he was noted to have stable CKD 3, elevated BNP at 11,000 which has improved since his previous hospitalization. Chest x-ray is significant for moderate viral pneumonitis pattern. Patient was hypoxic on room air with saturations in the low 80s, patient appears very weak and ill. Patient doing okay on 3-4 L per nasal cannula at this time. ED provider wishes to admit patient for further evaluation and management. When I saw the patient in the emergency department he was awake but drowsy, oriented x3. Patient complaining of shortness of breath and generalized weakness. - Past Medical/Surgical History Diabetic: Yes -: Diabetes mellitus type 2 -: hypertention -: CAD -: chronic systolic CHF -: Atrial fibrillation on chronic anticoagulation -: carotid stent -: CABG quintuple 2016 -: BKA left leg -: Prostate surgery -: bladder surgery -: skin graft Psychosocial/ Personal History: Patient lives at home with his family - Family History Father -: Heart disease Mother -: Lung disease Notes: COPD, leaking heart valve, emphysema - Social History Smoking Status: Never smoker Alcohol use: No CD- Drugs: No Caffeine use: No Place of Residence: Home <Tomi Bangura - Last Filed: 02/13/20 00:09> Date of Service: 02/13/20 Home medications list reviewed: Yes <Nathan Soler - Last Filed: 02/13/20 12:21> Allergies meperidine [From Demerol] Allergy (Verified 02/08/20 05:56) Unknown pseudoephedrine Allergy (Verified 02/08/20 05:56) Hives acetaminophen [From Vicodin] Adverse Reaction (Verified 02/08/20 05:56) Nausea/Vomiting codeine Adverse Reaction (Verified 02/08/20 05:56) Nausea/Vomiting hydrocodone bitartrate [From Vicodin] Adverse Reaction (Verified 02/08/20 05:56) Nausea/Vomiting fedrazil Allergy (Mild, Uncoded 02/08/20 05:56) Unknown Home Medications: Finasteride [Proscar*] 5 mg PO DAILY 04/14/18 Insulin Degludec [Tresiba Flextouch U-200] 40 units SQ DAILY 04/14/18 Liothyronine [Cytomel*] 1 tab PO DAILY 04/14/18 Losartan Potassium [Cozaar*] 50 mg PO DAILY 04/14/18 Tamsulosin HCl 0.4 mg PO DAILY 04/14/18 Vit C/Ascorb Sod/Multivit-Min [Emergen-C 500 mg Chewable Tab] 1,000 mg PO DAILY 04/14/18 Bumetanide [Bumex*] 1 mg PO DAILY 06/24/18 Famotidine 1 tab PO DAILY 05/26/19 Zinc 1 tab PO DAILY 05/26/19 Apixaban [Eliquis] 5 mg PO BID #60 tablet 05/28/19 Sotalol HCl [Betapace*] 80 mg PO BID 6AM 6PM #60 tab 05/28/19 Glipizide [Glipizide ER] 10 mg PO BID 02/08/20 Benzonatate [Tessalon Perle*] 200 mg PO TID PRN #30 cap 02/10/20 Review of Systems 10-point ROS is otherwise unremarkable Respiratory: Cough, Shortness of Breath, SOB with Excertion <Tomi Bangura - Last Filed: 02/13/20 00:09> Physical Examination - Physical Exam General: Alert, In no apparent distress, Oriented x3 HEENT: Atraumatic, Normocephalic, Other (Mucous membranes dry) Neck: Supple Respiratory: Clear to auscultation bilaterally, Diminished (Bilateral) Cardiovascular: No edema, Normal S1 S2 Capillary refill: <2 Seconds Gastrointestinal: Normal bowel sounds, No tenderness, No masses Musculoskeletal: No erythema, No tenderness, Other (Left BKA) Integumentary: No tenderness/swelling, No erythema, No warmth Neurological: Normal speech, Normal strength at 5/5 x4 extr, Normal tone, Sen sation intact - Studies Laboratory Data (last 24 hrs) 02/12/20 20:26: PT 14.9 H, INR 1.27 02/12/20 20:26: WBC 5.3 D, Hgb 13.5 L, Hct 39.4 L, Plt Count 184 02/12/20 20:26: Sodium 134 L, Potassium 5.2 H, BUN 35 H, Creatinine 1.59 H, Glucose 211 H, Magnesium 2.3, Total Bilirubin 1.0, AST 24, ALT 23, Alkaline Ph osphatase 74 <Tomi Bangura - Last Filed: 02/13/20 00:09> - Studies Laboratory Data (last 24 hrs) 02/12/20 20:26: PT 14.9 H, INR 1.27 02/12/20 20:26: WBC 5.3 D, Hgb 13.5 L, Hct 39.4 L, Plt Count 184 02/12/20 20:26: Sodium 134 L, Potassium 5.2 H, BUN 35 H, Creatinine 1.59 H, Glucose 211 H, Magnesium 2.3, Total Bilirubin 1.0, AST 24, ALT 23, Alkaline Phosphatase 74 <Nathan Soler - Last Filed: 02/13/20 12:21> Assessment and Plan - Plan Assessment Acute respiratory failure with hypoxia secondary to COVID pneumonia Chronic systolic congestive heart failure CKD stage 3 Atrial fibrillation on chronic anticoagulation therapy Diabetes mellitus type 2 Hypertension Hyperlipidemia Plan Acute respiratory failure with hypoxia secondary to COVID pneumonia: Pulmonology consult in place, respiratory therapy consult in place. Daily room air saturations. Continue with IV steroids, oral supplements. Monitor on telemetry. Oxygen as needed. Continue Eliquis for DVT prophylaxis. Chronic systolic congestive heart failure: Obtain and continue home medications. Appears stable at this time CKD stage 3: Appears stable at this time. Consult nephrology as necessary. Atrial fibrillation on chronic anticoagulation therapy: Continue Eliquis. Monitor on telemetry Diabetes mellitus type 2: A.c. HS Accu-Cheks scale insulin therapy. Hypertension: Obtain and continue home medications. Hyperlipidemia: Obtain and continue home medications. Discharge Plan: Home Plan to discharge in: 48 Hours - Advance Directives Does patient have a Living Will: No Does patient have a Durable POA for Healthcare: No - Code Status/Comfort Care Code Status Assessed: Yes (Full code) Critical Care: No Time Spent Managing Pts Care (In Minutes): 55 <Tomi Bangura - Last Filed: 02/13/20 00:09> - Plan Case discussed in detail with nurse practitioner. Agree with evaluation, assessment and plan of care. Please see orders for more details. Will discuss with pulmonology as well. <Nathan Soler - Last Filed: 02/13/20 12:21>
[2020-02-13] MEDS ORDERED: ONDANSETRON 4 MG/2 ML VIAL IV PRN (01:24)
[2020-02-13] MEDS ORDERED: HYDROCODONE/APAP 7.5/325 MG TAB PO PRN (01:24)
[2020-02-13] MEDS ORDERED: BENZONATATE 100 MG CAP PO PRN (01:24)
[2020-02-13] MEDS ORDERED: ACETAMINOPHEN 500 MG TAB PO PRN (01:24)
[2020-02-13] MEDS ORDERED: MORPHINE 2 MG/ML SYR IV PRN (01:24)
[2020-02-13] MEDS: METHYLPREDNISOLONE 125 MG INJ IV SCH ×3 (02:22→17:46)
[2020-02-13 03:11] LABS: Absolute Lymphocytes (CBC) 0.5 K/uL (0.7-4.9); Basophils % 0.2 % (0-1.3); Hematocrit 40.4 % (39.6-49.0); Lymphocytes % 12.7 % (15.3-44.8); MPV 8.3 fL (7.6-11.3); RBC Red Blood Cell Count 4.78 M/uL (4.33-5.43)
[2020-02-13 03:25] LABS: C-Reactive Protein 64.1 mg/L (<3.00); Ferritin 338.2 ng/mL (26-388); Magnesium 2.5 mg/dL (1.8-2.4); Potassium 4.8 mmol/L (3.5-5.1)
[2020-02-13] MEDS: SOTALOL HCL 80 MG TAB PO SCH ×2 (06:06→17:46)
[2020-02-13] MEDS: INSULIN -REGULAR HUMAN 50 UNIT/0.5 ML ML SQ SCH ×4 (07:30→21:18)
--- NOTE | 2020-02-13 08:32 | P.CNS ---
Date of Consult: 02/13/20 Reason for Consult: Mancia virus pneumonia Primary Care Provider: Dr. Greene Chief Complaint: COVID pneumonia History of Present Illness: Patient is 74 years of age recurrent hospital admission knee Dameon recently discharged with diagnosis of mancia virus came in worsening shortness of breath some fever doing better on oxygen he was not discharged home on prednisone Allergies meperidine [From Demerol] Allergy (Verified 02/08/20 05:56) Unknown pseudoephedrine Allergy (Verified 02/08/20 05:56) Hives acetaminophen [From Vicodin] Adverse Reaction (Verified 02/08/20 05:56) Nausea/Vomiting codeine Adverse Reaction (Verified 02/08/20 05:56) Nausea/Vomiting hydrocodone bitartrate [From Vicodin] Adverse Reaction (Verified 02/08/20 05:56) Nausea/Vomiting fedrazil Allergy (Mild, Uncoded 02/08/20 05:56) Unknown Home Medications: Finasteride [Proscar*] 5 mg PO DAILY 04/14/18 Insulin Degludec [Tresiba Flextouch U-200] 40 units SQ DAILY 04/14/18 Liothyronine [Cytomel*] 1 tab PO DAILY 04/14/18 Losartan Potassium [Cozaar*] 50 mg PO DAILY 04/14/18 Tamsulosin HCl 0.4 mg PO DAILY 04/14/18 Vit C/Ascorb Sod/Multivit-Min [Emergen-C 500 mg Chewable Tab] 1,000 mg PO DAILY 04/14/18 Bumetanide [Bumex*] 1 mg PO DAILY 06/24/18 Famotidine 1 tab PO DAILY 05/26/19 Zinc 1 tab PO DAILY 05/26/19 Apixaban [Eliquis] 5 mg PO BID #60 tablet 05/28/19 Sotalol HCl [Betapace*] 80 mg PO BID 6AM 6PM #60 tab 05/28/19 Glipizide [Glipizide ER] 10 mg PO BID 02/08/20 Benzonatate [Tessalon Perle*] 200 mg PO TID PRN #30 cap 02/10/20 - Past Medical/Surgical History Diabetic: Yes -: Diabetes mellitus type 2 -: hypertention -: CAD -: chronic systolic CHF -: Atrial fibrillation on chronic anticoagulation -: carotid stent -: CABG quintuple 2017 -: BKA left leg -: Prostate surgery -: bladder surgery -: skin graft Psychosocial/ Personal History: Patient lives at home with his family - Family History Father Medical History: Heart disease Mother Medical History: Lung disease Notes: COPD, leaking heart valve, emphysema - Social History Smoking Status: Never smoker Alcohol use: No CD- Drugs: No Caffeine use: Yes Place of Residence: Home Review of Systems 10-point ROS is otherwise unremarkable General: Weakness Respiratory: Cough, Shortness of Breath Physical Examination Temp Pulse Resp BP Pulse Ox 97 F 67 20 125/63 99 02/13/20 04:00 02/13/20 04:00 02/13/20 04:00 02/13/20 04:00 02/13/20 04:00 General: Alert, In no apparent distress, Oriented x3 Respiratory: Clear to auscultation bilaterally Cardiovascular: No edema, Normal S1 S2 Laboratory Data (last 24 hrs) 02/12/20 20:26: PT 14.9 H, INR 1.27 02/12/20 20:26: WBC 5.3 D, Hgb 13.5 L, Hct 39.4 L, Plt Count 184 02/12/20 20:26: Sodium 134 L, Potassium 5.2 H, BUN 35 H, Creatinine 1.59 H, Glucose 211 H, Magnesium 2.3, Total Bilirubin 1.0, AST 24, ALT 23, Alkaline Phosphatase 74 - Problems (1) Pneumonia due to human coronavirus Current Visit: Yes Status: Acute Plan: Patient is 74 years of age admitted with pneumonia due to mancia virus is hypoxic he is doing much better on oxygen patient has chronic renal failure mildly elevated CRP chest x-ray reviewed currently he is stable agree with present anticoagulation and steroids possible discharge home tomorrow on oxygen and prednisone patient is a diabetic
[2020-02-13] MEDS ORDERED: LOSARTAN POTASSIUM 50 MG TABLET PO SCH (09:00)
[2020-02-13] MEDS: BUMETANIDE 1 MG TABLET PO SCH (09:03)
[2020-02-13] MEDS: APIXABAN 5 MG TABLET PO SCH ×2 (09:04→21:18)
[2020-02-13] MEDS: TAMSULOSIN 0.4 MG SR CAP PO SCH (09:04)
[2020-02-13] MEDS: FAMOTIDINE 20 MG TAB PO SCH (09:04)
[2020-02-13] MEDS: FINASTERIDE 5 MG TAB PO SCH (09:04)
[2020-02-13] MEDS: LIOTHYRONINE SOD 25 MCG TAB PO SCH (09:04)
[2020-02-13] MEDS: VITAMIN D 1000 UNIT TAB PO SCH (09:05)
[2020-02-13] MEDS: ZINC SULFATE 220 MG CAP PO SCH (09:05)
[2020-02-13] MEDS: ASCORBIC ACID 500 MG TABLET PO SCH ×3 (09:05→21:18)
--- NOTE | 2020-02-13 12:20 | P.PN ---
Subjective Date of Service: 02/13/20 Primary Care Provider: Dr. Greene Chief Complaint: COVID pneumonia Subjective: Other (Shortness of breath improved) Physical Examination - Vital Signs Temperature: 97 F Blood Pressure: 108/54 Pulse: 66 Respirations: 20 Pulse Ox (%): 91 - Physical Exam General: Alert, Other (Some tachypnea noted) HEENT: Atraumatic Respiratory: Other (Some tachypnea noted. Patient on nasal cannula.) Cardiovascular: Normal pulses Neurological: Normal speech, Normal strength at 5/5 x4 extr, Normal tone, Normal affect - Studies Laboratory Data (last 24 hrs) 02/12/20 20:26: PT 14.9 H, INR 1.27 02/12/20 20:26: WBC 5.3 D, Hgb 13.5 L, Hct 39.4 L, Plt Count 184 02/12/20 20:26: Sodium 134 L, Potassium 5.2 H, BUN 35 H, Creatinine 1.59 H, Glucose 211 H, Magnesium 2.3, Total Bilirubin 1.0, AST 24, ALT 23, Alkaline Phosphatase 74 Medications List Reviewed: Yes Assessment & Plan Discharge Plan: Home Plan to discharge in: 24 Hours Physician Review Additional Text: Assessment Acute respiratory failure with hypoxia secondary to COVID pneumonia Chronic systolic congestive heart failure CKD stage 3 Atrial fibrillation on chronic anticoagulation therapy Diabetes mellitus type 2 Hypertension Hyperlipidemia Hypothyroidism Plan Acute respiratory failure with hypoxia secondary to COVID pneumonia: Continue with IV steroids. Supplementations to be continued. Continue Eliquis. Will continue monitor closely. Anticipate improvement over the next 24 hr. Likely discharge tomorrow on oxygen and steroids. Advanced care planning addressed. Patient will go home with oxygen at discharge. Chronic systolic congestive heart failure: Continue home medication CKD stage 3: Overall stable. Atrial fibrillation on chronic anticoagulation therapy: Continue Eliquis and sotalol. Monitor on telemetry. Patient normal sinus rhythm. Diabetes mellitus type 2: Monitor Accu-Cheks and provide sliding scale. Hypertension: Obtain and restart home medication Hyperlipidemia: Obtain and restart home medication. Hypothyroidism: Continue medication Time Spent Managing Pts Care (In Minutes): 55
[2020-02-13] MEDS ORDERED: D50W 25 GM/50 ML SYRINGE IV PRN (16:55)
[2020-02-13] MEDS ORDERED: GLUCAGON 1 MG/VIAL IM PRN (16:55)
[2020-02-13] MEDS ORDERED: INSULIN GLARGINE 100 UNITS/ML SQ SCH (21:00)
[2020-02-13] MEDS ORDERED: INSULIN GLARGINE 100 UNITS/ML SQ ONE (21:13)
[2020-02-14] MEDS: METHYLPREDNISOLONE 125 MG INJ IV SCH ×2 (00:50→07:54)
[2020-02-14 03:55] VITALS: O2SAT 96
[2020-02-14 05:08] LABS: Absolute Lymphocytes (CBC) 0.5 K/uL (0.7-4.9); Basophils % 0.1 % (0-1.3); Hematocrit 41.7 % (39.6-49.0); Lymphocytes % 5.1 % (15.3-44.8); MPV 8.1 fL (7.6-11.3); RBC Red Blood Cell Count 5.01 M/uL (4.33-5.43)
[2020-02-14 05:29] LABS: C-Reactive Protein 42.2 mg/L (<3.00); Magnesium 2.6 mg/dL (1.8-2.4); Potassium 4.7 mmol/L (3.5-5.1)
[2020-02-14] MEDS: SOTALOL HCL 80 MG TAB PO SCH (05:37)
[2020-02-14 06:19] VITALS: BMI 27.1
[2020-02-14 07:41] LABS: Blood Morphology Comment NOT SEEN (NOT SEEN); Platelet Estimate ADEQ
--- NOTE | 2020-02-14 07:47 | P.DS ---
Admission Date: 02/12/20 Discharge Date: 02/14/20 Primary Care Provider: Dr. Greene Disposition: DC HOME/HOME HEALTH CARE Discharge Condition: GOOD Reason for Admission: COVID pneumonia Consultations: Pulmonary-Dr. Mueller Procedures: CXR: FINDINGS: Portable technique limits examination quality. Moderate bilateral interstitial lung prominence is seen which probably represents a viral pneumonitis/bronchitis. The heart is prominent in size with changes of a prior CABG. No displaced fractures. IMPRESSION: Moderate viral pneumonitis/bronchitis pattern. Medical Problem List: Acute respiratory failure with hypoxia secondary to COVID-19 bilateral pneumonia Chronic systolic congestive heart failure CKD stage 3 Atrial fibrillation on chronic anticoagulation therapy Diabetes mellitus type 2, insulin-dependent with hyperglycemia Hypertension BPH Hypothyroidism Brief History of Present Illness: 74-year-old male with history of systolic this CHF, chronic renal disease stage III, atrial fibrillation on chronic anti coagulation therapy, diabetes mellitus type 2, hypertension, hyperlipidemia and hypothyroidism. Patient recently hospitalist for CHF exacerbation and COVID 19 infection. The patient was discharge. Since that time the patient had worsening shortness of breath. The patient presented back with difficulty breathing. Patient found to have acute respiratory failure with hypoxia. The patient was admitted for treatment. Hospital Course: Patient presented with acute respiratory failure with hypoxia secondary to COVID 19 bilateral pneumonia. Patient was treated with IV steroids and supplementation. The patient has done well. The patient remains on home oxygen. Home oxygen had been arranged on prior visit. Patient was seen and evaluated by pulmonology. Patient has improved. Inflammatory markers also improved. At discharge the patient will continue with home oxygen. Currently on 1 L per nasal cannula. Home oxygen will be arranged. At discharge the patient will also continue with prednisone 20 mg 1 pill twice daily for 7 days then 1 pill daily for 7 days. The patient may also continue with vitamin supplementation including vitamin-C, vitamin-D, and zinc. Patient will follow up with pulmonology within 1 week to follow up this hospitalization and continue his care. Education on COVID 19 will be provided including isolation. Patient will continue with face mask use, social distancing and hand washing. Patient with underlying history of chronic systolic CHF. This appears stable. At discharge patient will continue with a 1500 cc per day fluid restriction and low-salt diet. Recommend to monitor his weight daily. If his weight increases by more than 5 lb he is to contact his PCP or cardiology for further recommendation. At discharge patient will continue with Bumex 1 mg daily. Patient with atrial fibrillation on chronic anti coagulation therapy. This appears stable. At discharge patient will continue with sotalol 80 mg 1 pill twice daily and Eliquis 5 mg 1 pill twice daily. Recommend follow up with cardiology in 2-4 weeks to monitor his progress. Patient with hypertension. At discharge patient will continue with Cozaar 100 mg daily. Recommend to maintain blood pressure less than 130/80. May need to hold medication if blood pressure less than 110 systolic. Further adjustment in medication can be done by his PCP. Patient with diabetes mellitus type 2 insulin-dependent with hyperglycemia. Recommend to maintain blood sugar less than 140 fasting and less than 200 after meals. Patient will continue with glipizide ER 10 mg 1 pill twice daily and Tresiba 40 units subcu daily. If his blood sugars remain above 200. He may have to increase Tresiba insulin by 2-5 units. This can be done with the help of his PCP. Recommend follow up with his PCP to further monitor and address. Patient with hypothyroidism. At discharge he will continue with Cytomel 25 mcg daily. Patient with BPH. At discharge patient will continue with Proscar 5 mg daily and Flomax 0.4 mg daily. Patient with chronic renal disease stage III. This appears stable at this time. Recommend no further use of nonsteroidal anti-inflammatories. Future medications may need to be renally dose. Recommend recheck lab-BMP in 2-4 weeks to monitor his progress. Patient may benefit with nephrology evaluation as an outpatient to further address. Vital Signs/Physical Exam: Temp Pulse Resp BP Pulse Ox 97.6 F 61 15 118/58 L 95 02/14/20 04:00 02/14/20 06:00 02/14/20 06:00 02/14/20 04:00 02/14/20 06:00 General: Alert, In no apparent distress, Oriented x3, Cooperative HEENT: Atraumatic Respiratory: Other (Patient on 1 L per nasal cannula. Patient breathing appropriately. No tachypnea or tachycardia noted.) Cardiovascular: Normal pulses Gastrointestinal: No guarding Neurological: Normal speech, Normal strength at 5/5 x4 extr, Normal tone, Normal affect Laboratory Data at Discharge: WBC 9.1 K/uL (4.3-10.9) D 02/14/20 05:00 Hgb 14.2 g/dL (13.6-17.9) 02/14/20 05:00 Hct 41.7 % (39.6-49.0) 02/14/20 05:00 Plt Count 217 K/uL (152-406) 02/14/20 05:00 PT 14.9 SECONDS (9.5-12.5) H 02/12/20 20:26 INR 1.27 02/12/20 20:26 Sodium 137 mmol/L (136-145) 02/14/20 05:00 Potassium 4.7 mmol/L (3.5-5.1) 02/14/20 05:00 BUN 47 mg/dL (7-18) H 02/14/20 05:00 Creatinine 1.60 mg/dL (0.55-1.3) H 02/14/20 05:00 Glucose 340 mg/dL (74-106) H 02/14/20 05:00 Magnesium 2.6 mg/dL (1.8-2.4) H 02/14/20 05:00 Total Bilirubin 1.0 mg/dL (0.2-1.0) 02/12/20 20:26 AST 24 U/L (15-37) 02/12/20 20:26 ALT 23 U/L (12-78) 02/12/20 20:26 Alkaline Phosphatase 74 U/L (45-117) 02/12/20 20:26 Troponin I 0.05 ng/mL (0.0-0.045) H 02/13/20 08:45 Home Medications: Finasteride [Proscar*] 5 mg PO DAILY 04/14/18 Insulin Degludec [Tresiba Flextouch U-200] 40 units SQ DAILY 04/14/18 Liothyronine [Cytomel*] 1 tab PO DAILY 04/14/18 Losartan Potassium [Cozaar*] 50 mg PO DAILY 04/14/18 Tamsulosin HCl 0.4 mg PO DAILY 04/14/18 Vit C/Ascorb Sod/Multivit-Min [Emergen-C 500 mg Chewable Tab] 1,000 mg PO DAILY 04/14/18 Bumetanide [Bumex*] 1 mg PO DAILY 06/24/18 Famotidine 1 tab PO DAILY 05/26/19 Zinc 1 tab PO DAILY 05/26/19 Apixaban [Eliquis] 5 mg PO BID #60 tablet 05/28/19 Sotalol HCl [Betapace*] 80 mg PO BID 6AM 6PM #60 tab 05/28/19 Glipizide [Glipizide ER] 10 mg PO BID 02/08/20 Benzonatate [Tessalon Perle*] 200 mg PO TID PRN #30 cap 02/10/20 Cholecalciferol (Vitamin D3) [Vitamin D 1000 Iu Tab*] 1,000 unit PO DAILY #90 tab 02/14/20 predniSONE [Prednisone*] 20 mg PO SEECOM #21 tab 02/14/20 New Medications: predniSONE [Prednisone*] 20 mg PO SEECOM #21 tab Cholecalciferol (Vitamin D3) [Vitamin D 1000 Iu Tab*] 1,000 unit PO DAILY #90 tab Patient Discharge Instructions: 1. Recommend follow up with PCP in 1 week to follow up this hospitalization. 2. Patient presented with acute respiratory failure with hypoxia secondary to COVID 19 bilateral pneumonia. Patient was treated with IV steroids and supplementation. The patient has done well. The patient remains on home oxygen. Home oxygen had been arranged on prior visit. Patient was seen and evaluated by pulmonology. Patient has improved. Inflammatory markers also improved. At discharge the patient will continue with home oxygen. Currently on 1 L per nasal cannula. Home oxygen will be arranged. At discharge the patient will also continue with prednisone 20 mg 1 pill twice daily for 7 days then 1 pill daily for 7 days. The patient may also continue with vitamin supplementation including vitamin-C, vitamin-D, and zinc. Patient will follow up with pulmonology within 1 week to follow up this hospitalization and continue his care. Education on COVID 19 will be provided including isolation. Patient will continue with face mask use, social distancing and hand washing. 3. Patient with underlying history of chronic systolic CHF. This appears stable. At discharge patient will continue with a 1500 cc per day fluid restriction and low-salt diet. Recommend to monitor his weight daily. If his weight increases by more than 5 lb he is to contact his PCP or cardiology for further recommendation. At discharge patient will continue with Bumex 1 mg daily. 4. Patient with atrial fibrillation on chronic anti coagulation therapy. This appears stable. At discharge patient will continue with sotalol 80 mg 1 pill twice daily and Eliquis 5 mg 1 pill twice daily. Recommend follow up with cardiology in 2-4 weeks to monitor his progress. 5. Patient with hypertension. At discharge patient will continue with Cozaar 100 mg daily. Recommend to maintain blood pressure less than 130/80. May need to hold medication if blood pressure less than 110 systolic. Further adjustment in medication can be done by his PCP. 6. Patient with diabetes mellitus type 2 insulin-dependent with hyperglycemia. Recommend to maintain blood sugar less than 140 fasting and less than 200 after meals. Patient will continue with glipizide ER 10 mg 1 pill twice daily and Tresiba 40 units subcu daily. If his blood sugars remain above 200. He may have to increase Tresiba insulin by 2-5 units. This can be done with the help of his PCP. Recommend follow up with his PCP to further monitor and address. 7. Patient with hypothyroidism. At discharge he will continue with Cytomel 25 mcg daily. 8. Patient with BPH. At discharge patient will continue with Proscar 5 mg daily and Flomax 0.4 mg daily. 9. Patient with chronic renal disease stage III. This appears stable at this time. Recommend no further use of nonsteroidal anti-inflammatories. Future medications may need to be renally dose. Recommend recheck lab-BMP in 2-4 weeks to monitor his progress. Patient may benefit with nephrology evaluation as an outpatient to further address. Diet: ADA Activity: Ad joao Followup: Unknown,U [Primary Care Provider] - Time spent managing pt's care (in minutes): 55
[2020-02-14] MEDS: LIOTHYRONINE SOD 25 MCG TAB PO SCH (07:49)
[2020-02-14] MEDS: FAMOTIDINE 20 MG TAB PO SCH (07:50)
[2020-02-14] MEDS: ASCORBIC ACID 500 MG TABLET PO SCH (07:50)
[2020-02-14] MEDS: TAMSULOSIN 0.4 MG SR CAP PO SCH (07:50)
[2020-02-14] MEDS: VITAMIN D 1000 UNIT TAB PO SCH (07:50)
[2020-02-14] MEDS: ZINC SULFATE 220 MG CAP PO SCH (07:51)
[2020-02-14] MEDS: FINASTERIDE 5 MG TAB PO SCH (07:51)
[2020-02-14] MEDS: APIXABAN 5 MG TABLET PO SCH (07:51)
[2020-02-14] MEDS: INSULIN -REGULAR HUMAN 50 UNIT/0.5 ML ML SQ SCH ×2 (07:53→12:16)
[2020-02-14] MEDS: BUMETANIDE 1 MG TABLET PO SCH (07:55)
[2020-02-14 14:58] VITALS: BP 123/70; TEMP 97.2
== END 2020-02-14 14:15 | disposition home or self-care (01) | DRG 177 ==
LOC: ER 19:43 → ERHOLD 23:25 → 3RD-ICU 02-13 01:33
PROVIDERS: ADMIT Family Medicine; ATTEND Family Medicine
DX: U07.1 COVID-19 (principal); J12.89 Other viral pneumonia; J96.01 Acute respiratory failure with hypoxia; I13.0 Hypertensive heart and chronic kidney disease with heart failure and stage 1 through stage 4 chronic kidney disease, or unspecified chronic kidney disease; I50.22 Chronic systolic (congestive) heart failure; N18.30 Chronic kidney disease, stage 3 unspecified; E11.22 Type 2 diabetes mellitus with diabetic chronic kidney disease; E11.65 Type 2 diabetes mellitus with hyperglycemia; I25.10 Atherosclerotic heart disease of native coronary artery without angina pectoris; I48.91 Unspecified atrial fibrillation; N40.0 Benign prostatic hyperplasia without lower urinary tract symptoms; E03.9 Hypothyroidism, unspecified; E78.5 Hyperlipidemia, unspecified; Z88.8 Allergy status to other drugs, medicaments and biological substances; Z79.899 Other long term (current) drug therapy; Z88.5 Allergy status to narcotic agent; Z79.01 Long term (current) use of anticoagulants; Z85.46 Personal history of malignant neoplasm of prostate; Z89.511 Acquired absence of right leg below knee; Z95.1 Presence of aortocoronary bypass graft; Z79.4 Long term (current) use of insulin; Z99.81 Dependence on supplemental oxygen; Z79.52 Long term (current) use of systemic steroids
CPT/HCPCS: 36415; 71045; 80048; 80076; 82728; 82947; 83605; 83735; 83880; 84145; 84484; 85025; 85610; 86140; 93005; 99285; J1815; J2930

== ENCOUNTER 2020-04-22 05:07 | Inpatient (IN) | payer BC ==
[2020-04-22 06:09] LABS: Absolute Lymphocytes (CBC) 1.2 K/uL (0.7-4.9); Basophils % 0.8 % (0-1.3); Hematocrit 33.4 % (39.6-49.0); Lymphocytes % 17.5 % (15.3-44.8); MPV 8.1 fL (7.6-11.3); RBC Red Blood Cell Count 3.94 M/uL (4.33-5.43)
[2020-04-22 06:13] LABS: Protime INR 1.2
[2020-04-22] MEDS ORDERED: INSULIN -REGULAR HUMAN 50 UNIT/0.5 ML ML ONE (06:13)
[2020-04-22 06:27] LABS: Albumin 3.2 g/dL (3.4-5.0); Bilirubin Direct 0.1 mg/dL (0-0.2); Bilirubin Total 0.4 mg/dL (0.2-1.0); Magnesium 2.7 mg/dL (1.8-2.4); Protein, Total 6.8 g/dL (6.4-8.2); Troponin (Emerg Dept Use Only) 0.02 ng/mL (0.0-0.045)
--- NOTE | 2020-04-22 06:41 | EDPHYS ---
Physician Documentation [facility] Name: Navjot Collins Age: 74 yrs Sex: Male : 1945 Arrival Date: 04/22/2020 Time: 05:08 Bed 5 Private MD: MIKAEL Physician Davon Arredondo HPI: 04/22 05:15 This 74 yrs old Male presents to ER via Unassigned with complaints of laila Shortness Of Breath. 05:15 The patient has shortness of breath at rest, with light activity. Onset: The laila symptoms/episode began/occurred this morning. Duration: The symptoms are intermittent, with no pattern. The patient's shortness of breath is aggravated by nothing, is alleviated by nothing. Associated signs and symptoms: The patient has no apparent associated signs or symptoms. Severity of symptoms: At their worst the symptoms were moderate. The patient has not experienced similar symptoms in the past. Historical: - Allergies: 05:23 Codeine; lp1 05:23 Demerol; lp1 05:23 fedrazil; lp1 05:23 Vicodin; lp1 - PMHx: 05:23 CHF; Diabetes - IDDM; HTN; PROSTATE CA; lp1 09:35 Atrial Fib; CAD; sv - PSHx: 05:24 L BKA; lp1 09:35 Carotid stent; CABG; Prostate; Bladder; Skin Graft; sv - Immunization history:: Adult Immunizations up to date. - Social history:: Smoking status: Patient denies any tobacco usage or history of. - Family history:: not pertinent. ROS: 05:15 Constitutional: Negative for fever, chills, and weight loss, Eyes: Negative for injury, laila pain, redness, and discharge, ENT: Negative for injury, pain, and discharge, Neck: Negative for injury, pain, and swelling, Cardiovascular: Negative for chest pain, palpitations, and edema, Abdomen/GI: Negative for abdominal pain, nausea, vomiting, diarrhea, and constipation, Back: Negative for injury and pain, : Negative for injury, bleeding, discharge, and swelling, MS/Extremity: Negative for injury and deformity, Skin: Negative for injury, rash, and discoloration, Neuro: Negative for headache, weakness, numbness, tingling, and seizure, Psych: Negative for depression, anxiety, suicide ideation, homicidal ideation, and hallucinations, Allergy/Immunology: Negative for hives, rash, and allergies, Endocrine: Negative for neck swelling, polydipsia, polyuria, polyphagia, and marked weight changes, Hematologic/Lymphatic: Negative for swollen nodes, abnormal bleeding, and unusual bruising. 05:15 Respiratory: Positive for cough, shortness of breath, at rest. Exam: 05:15 Constitutional: This is a well developed, well nourished patient who is awake, alert, laila and in no acute distress. Head/Face: Normocephalic, atraumatic. Eyes: Pupils equal round and reactive to light, extra-ocular motions intact. Lids and lashes normal. Conjunctiva and sclera are non-icteric and not injected. Cornea within normal limits. Periorbital areas with no swelling, redness, or edema. ENT: Nares patent. No nasal discharge, no septal abnormalities noted. Tympanic membranes are normal and external auditory canals are clear. Oropharynx with no redness, swelling, or masses, exudates, or evidence of obstruction, uvula midline. Mucous membranes moist. Neck: Trachea midline, no thyromegaly or masses palpated, and no cervical lymphadenopathy. Supple, full range of motion without nuchal rigidity, or vertebral point tenderness. No Meningismus. Chest/axilla: Normal chest wall appearance and motion. Nontender with no deformity. No lesions are appreciated. Cardiovascular: Regular rate and rhythm with a normal S1 and S2. No gallops, murmurs, or rubs. Normal PMI, no JVD. No pulse deficits. Abdomen/GI: Soft, non-tender, with normal bowel sounds. No distension or tympany. No guarding or rebound. No evidence of tenderness throughout. Back: No spinal tenderness. No costovertebral tenderness. Full range of motion. Male : Normal genitalia with no discharge or lesions. Skin: Warm, dry with normal turgor. Normal color with no rashes, no lesions, and no evidence of cellulitis. MS/ Extremity: Pulses equal, no cyanosis. Neurovascular intact. Full, normal range of motion. Neuro: Awake and alert, GCS 15, oriented to person, place, time, and situation. Cranial nerves II-XII grossly intact. Motor strength 5/5 in all extremities. Sensory grossly intact. Cerebellar exam normal. Normal gait. Psych: Awake, alert, with orientation to person, place and time. Behavior, mood, and affect are within normal limits. 05:15 Respiratory: the patient does not display signs of respiratory distress, Respirations: normal, Breath sounds: 06:03 ECG was reviewed by the Attending Physician. [facility] Vital Signs: 05:21 BP 128 / 69; Pulse 60; Resp 20; Pulse Ox 95% on R/A; Weight 98.43 kg (R); Height 6 ft. lp1 2 in. (187.96 cm); Pain 0/10; 06:45 BP 112 / 57; Pulse 59; Resp 21; Pulse Ox 95% on 2 lpm NC; jb4 07:30 BP 125 / 71; Pulse 56; Resp 19; Pulse Ox 96% on R/A; hb 05:21 Body Mass Index 27.86 (98.43 kg, 187.96 cm) lp1 MDM: 05:10 Patient medically screened. laila 05:17 Differential diagnosis: Anemia pulmonary edema, Pulmonary Embolism reactive airway laila disease, Sepsis Unstable Angina. Antibiotic administration: Not indicated. The patient's Wells Deep Vein Thrombosis Score was calculated as follows: Total Score: 0-2 Pts- Low Risk. The patient's pulmonary embolism risk score was calculated as follows: Total Score: 0-2 points. This patient was found to be at low risk for a pulmonary embolism by using the Well's assessment criteria. Immunization status: Pneumococcal vaccine: Influenza vaccine: Data reviewed: vital signs, nurses notes, EMS record, old medical records, lab test result(s), EKG, radiologic studies. 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 Test interpretation: by ED physician or midlevel provider: ECG, plain radiologic studies. Counseling: I had a detailed discussion with the patient and/or guardian regarding: the historical points, exam findings, and any diagnostic results supporting the discharge/admit diagnosis, the presence of at least one elevated blood pressure reading (>120/80) during this emergency department visit, lab results, radiology results, the need for outpatient follow up. 04/22 05:14 Order name: Basic Metabolic Panel [facility] 04/22 05:14 Order name: CBC with Diff [facility] 04/22 05:14 Order name: LFT's [facility] 04/22 05:14 Order name: Magnesium [facility] 04/22 05:15 Order name: NT PRO-BNP [facility] 04/22 05:15 Order name: PT-INR [facility] 04/22 05:15 Order name: Troponin (emerg Dept Use Only) [facility] 04/22 05:15 Order name: Basic Metabolic Panel; Complete Time: 06:36 [facility] 04/22 05:15 Order name: CBC with Automated Diff; Complete Time: 06:25 [facility] 04/22 05:15 Order name: Liver (Hepatic) Function; Complete Time: 06:36 [facility] 04/22 05:15 Order name: Magnesium; Complete Time: 06:36 [facility] 04/22 05:15 Order name: NT PRO-BNP; Complete Time: 06:36 [facility] 04/22 05:15 Order name: Protime (+INR); Complete Time: 06:25 [facility] 04/22 05:15 Order name: Troponin (Emerg Dept Use Only); Complete Time: 06:36 [facility] 04/22 05:15 Order name: XRAY Chest (1 view) [facility] 04/22 06:00 Order name: Glucose, Ancillary Testing; Complete Time: 06:25 [facility] 04/22 06:31 Order name: Blood Culture Adult (2) [facility] 04/22 07:15 Order name: Glucose, Ancillary Testing [facility] 04/22 07:41 Order name: Glucose, Ancillary Testing [facility] 04/22 07:50 Order name: COVID-19 : Document "Date of Symptom Onset" if Symptomatic. sv 04/22 07:56 Order name: CORONAVIRUS [facility] 04/22 08:09 Order name: Glucose, Ancillary Testing [facility] 04/22 08:44 Order name: SARS-COV-[address] [facility] 04/22 08:49 Order name: Urine Dipstick--Ancillary (enter results) 04/22 09:31 Order name: Urine Dipstick-Ancillary [facility] 04/22 13:39 Order name: Troponin I [facility] 04/22 05:15 Order name: EKG; Complete Time: 05:16 [facility] 04/22 05:15 Order name: Cardiac monitoring; Complete Time: 05:44 [facility] 04/22 05:15 Order name: EKG - Nurse/Tech; Complete Time: 05:52 [facility] 04/22 05:15 Order name: IV Saline Lock; Complete Time: 05:52 [facility] 04/22 05:15 Order name: Labs collected and sent; Complete Time: 05:52 [facility] 04/22 05:15 Order name: O2 Per Protocol; Complete Time: 05:44 [facility] 04/22 05:15 Order name: O2 Sat Monitoring; Complete Time: 05:44 [facility] 04/22 05:15 Order name: Urine Dipstick-Ancillary (obtain specimen); Complete Time: 08:53 laila EC:03 Rate is 58 beats/min. Rhythm is regular. QRS Lysite is Normal. VT interval is normal. QRS laila interval is normal. QT interval is normal. No Q waves. T waves are Normal. No ST changes noted. Clinical impression: Abnormal EKG without significant change and No evidence of ischemia. Interpreted by me. Reviewed by me. Administered Medications: 05:53 Not Given (Other Intervention Used): Insulin Regular Human 10 units IVP once jb4 06:07 Drug: Insulin Regular Human 7 units {Co-Signature: mike (Ameena Myers RN).} Route: IVP; jb4 Site: right antecubital; 07:05 Follow up: Response: No adverse reaction sv 06:37 CANCELLED (Duplicate Order): Lasix 20 mg IVP once laila 06:54 CANCELLED (Duplicate Order): Zithromax 500 mg IVPB once over 1 hrs; mix in 250 mL NS laila 07:30 Drug: Decadron - Dexamethasone 10 mg Route: IVP; Site: right wrist; sv 08:20 Follow up: Response: No adverse reaction sv 07:33 Drug: D50W 50 ml Route: IVP; Site: right wrist; hb 07:55 Follow up: Response: No adverse reaction; Blood sugar is elevated sv 07:36 Drug: Lasix 40 mg Route: IVP; Site: right wrist; sv 08:20 Follow up: Response: No adverse reaction sv 08:40 Drug: Rocephin 1 grams Route: IV; Rate: per protocol; Site: right wrist; sv 08:42 Follow up: Response: No adverse reaction; IV Status: Completed infusion; IV Intake: 10mlsv 10:31 Drug: Pepcid 20 mg Route: IVP; Site: right wrist; sv 11:00 Follow up: Response: No adverse reaction sv Disposition: 04/22/20 06:41 Hospitalization ordered by Maris Chao for Inpatient Admission. Preliminary diagnosis are Dyspnea, Hypoxemia, Cardiomegaly, Unspecified combined systolic (congestive) and diastolic (congestive) heart failure, Type 1 diabetes mellitus, Unspecified kidney failure - insufficency. - Bed requested for Intensive Care Unit. - Status is Inpatient Admission. sv - Condition is Fair. - Problem is new. - Symptoms have improved. Signatures: Dispatcher [employer] EDYolie Brenner, RN JUDE Raina Perez RN Davon Recinos MD MD cha Smirch, Shelby, JUDE ROQUE Ameena Myers RN RN lp1 Tisha Ward RN RN Adan Harley RN RN jb4 Ameena Myers RN lp1 Corrections: (The following items were deleted from the chart) 06:37 06:31 Lasix 20 mg IVP once ordered. [facility] 06:51 06:41 Hospitalization Ordered by Maris Chao MD for Inpatient Admission. Preliminary [facility] diagnosis is Dyspnea; Hypoxemia; Cardiomegaly; Unspecified combined systolic (congestive) and diastolic (congestive) heart failure; Type 1 diabetes mellitus. Bed requested for Telemetry/MedSurg (Inpatient). Status is Inpatient Admission. Condition is Fair. Problem is new. Symptoms have improved. [facility] 06:54 06:31 Zithromax 500 mg IVPB once over 1 hrs; mix in 250 mL NS ordered. [facility] 08:26 06:51 04/22/2020 06:41 Hospitalization Ordered by Maris Chao MD for Inpatient ss Admission. Preliminary diagnosis is Dyspnea; Hypoxemia; Cardiomegaly; Unspecified combined systolic (congestive) and diastolic (congestive) heart failure; Type 1 diabetes mellitus; Unspecified kidney failure - insufficency. Bed requested for Telemetry/MedSurg (Inpatient). Status is Inpatient Admission. Condition is Fair. Problem is new. Symptoms have improved. [facility] 12:27 08:26 04/22/2020 06:41 Hospitalization Ordered by Maris Chao MD for Inpatient dw Admission. Preliminary diagnosis is Dyspnea; Hypoxemia; Cardiomegaly; Unspecified combined systolic (congestive) and diastolic (congestive) heart failure; Type 1 diabetes mellitus; Unspecified kidney failure - insufficency. Bed requested for [facility] ER HOLD. Status is Inpatient Admission. Condition is Fair. Problem is new. Symptoms have improved. ss 13:55 12:27 04/22/2020 06:41 Hospitalization Ordered by Maris Chao MD for Inpatient sv Admission. Preliminary diagnosis is Dyspnea; Hypoxemia; Cardiomegaly; Unspecified combined systolic (congestive) and diastolic (congestive) heart failure; Type 1 diabetes mellitus; Unspecified kidney failure - insufficency. Bed requested for Intensive Care Unit. Status is Inpatient Admission. Condition is Fair. Problem is new. Symptoms have improved. dw
--- NOTE | 2020-04-22 06:41 | ER ---
Nurse's Notes [facility] Name: Navjot Collins Age: 74 yrs Sex: Male : 1945 Arrival Date: 04/22/2020 Time: 05:08 Bed 5 Private MD: Diagnosis: Dyspnea;Hypoxemia;Cardiomegaly;Unspecified combined systolic (congestive) and diastolic (congestive) heart failure;Type 1 diabetes mellitus;Unspecified kidney failure-insufficency Presentation: 04/22 05:21 Chief complaint: EMS states: shortness of breath when going to bed tonight; states sob lp1 worse when laying flat; Hx of CHF; Denies any fever, N/V/D. Coronavirus screen: Client denies travel out of the [place] in the last 14 days. At this time, the client does not indicate any symptoms associated with coronavirus-19. Ebola Screen: No symptoms or risks identified at this time. Initial Sepsis Screen: Does the patient meet any 2 criteria? No. Patient's initial sepsis screen is negative. Does the patient have a suspected source of infection? No. Patient's initial sepsis screen is negative. Risk Assessment: Do you want to hurt yourself or someone else? Patient reports no desire to harm self or others. Onset of symptoms was April 22, 2020. 05:21 Method Of Arrival: EMS: [facility] lp1 05:21 Acuity: ZENAIDA 3 lp1 Historical: - Allergies: 05:23 Codeine; lp1 05:23 Demerol; lp1 05:23 fedrazil; lp1 05:23 Vicodin; lp1 - PMHx: 05:23 CHF; Diabetes - IDDM; HTN; PROSTATE CA; lp1 09:35 Atrial Fib; CAD; sv - PSHx: 05:24 L BKA; lp1 09:35 Carotid stent; CABG; Prostate; Bladder; Skin Graft; sv - Immunization history:: Adult Immunizations up to date. - Social history:: Smoking status: Patient denies any tobacco usage or history of. - Family history:: not pertinent. Screenin:23 Abuse screen: Denies threats or abuse. Denies injuries from another. Nutritional lp1 screening: No deficits noted. Tuberculosis screening: No symptoms or risk factors identified. 07:30 Fall Risk No fall in past 12 months (0 pts). Secondary diagnosis (15 points) impaired sv mobility, IV access (20 points). Ambulatory Aid- Crutches/Cane/Walker (15 pts). Gait- Mental Status- Oriented to own ability (0 pts). Total Oakes Fall Scale indicates High Risk Score (45 or more points). Fall prevention measures have been instituted. Side Rails Up X 2 Placed Close to Nursing Station Frequent Obs/Assessments Occuring As available patient and family educated on Fall Prevention Program and Strategies. Assessment: 05:15 General: Appears in no apparent distress. comfortable, Behavior is calm, cooperative, jb4 appropriate for age. Pain: Denies pain. Neuro: Level of Consciousness is awake, alert, obeys commands, Oriented to person, place, time, situation. Cardiovascular: Patient's skin is warm and dry. Respiratory: Airway is patent Respiratory effort is even, unlabored, Respiratory pattern is regular, symmetrical, Breath sounds are clear bilaterally. GI: No signs and/or symptoms were reported involving the gastrointestinal system. : No signs and/or symptoms were reported regarding the genitourinary system. EENT: No signs and/or symptoms were reported regarding the EENT system. Derm: Skin is intact, Skin is pink, warm \\T\\ dry. Musculoskeletal: Circulation, motion, and sensation intact. Range of motion: intact in all extremities. 06:08 Reassessment: PT reports feeling more short of breath, lungs CTA JANNET, placed on 2L NC. jb4 06:15 Reassessment: Patient appears in no apparent distress at this time. Patient and/or jb4 family updated on plan of care and expected duration. Pain level reassessed. Patient is alert, oriented x 3, equal unlabored respirations, skin warm/dry/pink. 07:00 Reassessment: Patient appears in no apparent distress at this time. Patient and/or jb4 family updated on plan of care and expected duration. Pain level reassessed. Patient is alert, oriented x 3, equal unlabored respirations, skin warm/dry/pink. 07:20 Reassessment: Patient appears in no apparent distress at this time. Patient and/or sv family updated on plan of care and expected duration. Pain level reassessed. Patient is alert, oriented x 3, equal unlabored respirations, skin warm/dry/pink. 07:30 Cardiovascular: Rhythm is sinus bradycardia. sv 07:32 Reassessment: Pr c/o feeling like his blood sugar was low, BGL 53. Dr. Yolanda negron notified, orders given, see MAY. 07:45 Reassessment: Pepcid unavailable in the ER pyxis at this time, waiting for pharmacy to restock it. 10:31 Reassessment: Pepcid given as ordered. sv Vital Signs: 05:21 BP 128 / 69; Pulse 60; Resp 20; Pulse Ox 95% on R/A; Weight 98.43 kg (R); Height 6 ft. lp1 2 in. (187.96 cm); Pain 0/10; 06:45 BP 112 / 57; Pulse 59; Resp 21; Pulse Ox 95% on 2 lpm NC; jb4 07:30 BP 125 / 71; Pulse 56; Resp 19; Pulse Ox 96% on R/A; hb 05:21 Body Mass Index 27.86 (98.43 kg, 187.96 cm) lp1 ED Course: 05:08 Patient arrived in ED. cl3 05:10 Davon Arredondo MD is Attending Physician. laila 05:22 Triage completed. lp1 05:23 Arm band placed on. lp1 05:24 Patient has correct armband on for positive identification. Placed in gown. Bed in low lp1 position. Call light in reach. bus monitor on. Pulse ox on. NIBP on. 05:35 Adan Harley, RN is Primary Nurse. jb4 06:20 XRAY Chest (1 view) In Process Unspecified. EDMS 06:38 Maris Chao MD is Hospitalizing Provider. laila 07:25 Basic Metabolic Panel Sent. sv 07:25 CBC with Diff Sent. sv 07:25 LFT's Sent. sv 07:25 Magnesium Sent. sv 07:25 NT PRO-BNP Sent. sv 07:25 PT-INR Sent. sv 07:25 Troponin (emerg Dept Use Only) Sent. sv 07:26 Primary Nurse role handed off by Adan Harley, RN sv 07:26 Yolie Troncoso, JUDE is Primary Nurse. sv 07:54 COVID-19 : Document "Date of Symptom Onset" if Symptomatic. Sent. sv 08:00 No provider procedures requiring assistance completed. Patient admitted, IV remains in sv place. intact. 08:19 CORONAVIRUS Sent. sv 08:52 Urine Dipstick--Ancillary (enter results) Sent. sv 12:58 Repeat lab(s) drawn. by or, sent to lab. 3 Administered Medications: 05:53 Not Given (Other Intervention Used): Insulin Regular Human 10 units IVP once jb4 06:07 Drug: Insulin Regular Human 7 units {Co-Signature: [email or web address] (Ameena Myers RN).} Route: IVP; jb4 Site: right antecubital; 07:05 Follow up: Response: No adverse reaction sv 06:37 CANCELLED (Duplicate Order): Lasix 20 mg IVP once laila 06:54 CANCELLED (Duplicate Order): Zithromax 500 mg IVPB once over 1 hrs; mix in 250 mL NS laila 07:30 Drug: Decadron - Dexamethasone 10 mg Route: IVP; Site: right wrist; sv 08:20 Follow up: Response: No adverse reaction sv 07:33 Drug: D50W 50 ml Route: IVP; Site: right wrist; hb 07:55 Follow up: Response: No adverse reaction; Blood sugar is elevated sv 07:36 Drug: Lasix 40 mg Route: IVP; Site: right wrist; sv 08:20 Follow up: Response: No adverse reaction sv 08:40 Drug: Rocephin 1 grams Route: IV; Rate: per protocol; Site: right wrist; sv 08:42 Follow up: Response: No adverse reaction; IV Status: Completed infusion; IV Intake: 10mlsv 10:31 Drug: Pepcid 20 mg Route: IVP; Site: right wrist; sv 11:00 Follow up: Response: No adverse reaction sv Intake: 08:42 IV: 10ml; Total: 10ml. sv Output: 08:43 Urine: 550ml (Voided); Total: 550ml. sv Outcome: 06:41 Decision to Hospitalize by Provider. laila 08:00 Admitted to ER Hold. Please see [employer] for further documentation. sv 08:00 Condition: stable 08:00 Instructed on the need for admit. 13:55 Patient left the ED. sv Signatures: Dispatcher [employer] EDMS Yolie Troncoso RN RN sv Anderson, Corey, MD MD cha Pena, Laura, RN RN lp1 Tisha Ward RN RN Adan Harley RN RN jb4 Dayna Chris 3 Maxim Tovar cl3 Ameena Myers RN lp1 Corrections: (The following items were deleted from the chart) 08:00 Admitted to [facility] Hold. [facility]. sv sv 08: Instructed on the need for admit, sv sv
[2020-04-22] MEDS ORDERED: ACETAMINOPHEN 500 MG TAB PO PRN ×2 (07:38→14:25)
[2020-04-22] MEDS ORDERED: dexAMETHasone 10 MG/ML VIAL ONE (07:43)
[2020-04-22] MEDS ORDERED: CEFTRIAXONE/SWI 1gm 1 GM/10 ML SYR ONE (07:44)
[2020-04-22] MEDS ORDERED: FUROSEMIDE 40 MG/4 ML VIAL ONE (07:44)
[2020-04-22] MEDS ORDERED: D50W 25 GM/50 ML SYRINGE IV ONE ×2 (07:47→07:49)
[2020-04-22] MEDS: FUROSEMIDE 40 MG/4 ML VIAL IV SCH ×2 (08:21→17:01)
--- NOTE | 2020-04-22 08:36 | RAD REPORT ---
EXAM DESCRIPTION: Marisol Single View04/22/2020 6:20 am CLINICAL HISTORY: Cough COMPARISON: January 2020 FINDINGS: Moderate right and [id number] left pulmonary opacities Cardiomegaly. Postsurgical changes involve the chest IMPRESSION: Moderate right and [id number] left pulmonary opacities probably pneumonia. Pulmon yina edema is another consideration
[2020-04-22] MEDS: ASPIRIN EC 81 MG TAB PO SCH (09:00)
[2020-04-22] MEDS ORDERED: ENOXAPARIN 100 MG/ML SYR SQ SCH (09:00)
[2020-04-22 09:08] VITALS: BMI 27.7
[2020-04-22 09:31] LABS: Urine Blood NEGATIVE (NEG); Urine Glucose 1+ (NEG); Urine Protein NEGATIVE (NEG); Urine Specific Gravity 1.015 (1.005-1.030); Urine pH 5.5 (5.0-7.0)
[2020-04-22] MEDS ORDERED: PNEUMOCOCCAL VACCINE 0.5 ML IMVAC ONE (10:00)
[2020-04-22] MEDS ORDERED: INFLUENZA VACCINE (for 3y+) 0.5 ML DOSE IMVAC ONE (10:00)
[2020-04-22] MEDS: APIXABAN 5 MG TABLET PO SCH ×2 (10:32→20:50)
[2020-04-22] MEDS ORDERED: APIXABAN 5 MG TABLET ONE (10:34)
[2020-04-22] MEDS ORDERED: FAMOTIDINE 20 MG/2 ML VIAL IV ONE (10:34)
[2020-04-22] MEDS ORDERED: D50W 25 GM/50 ML SYRINGE IV PRN (14:23)
[2020-04-22] MEDS ORDERED: D50W 25 GM/50 ML VIAL IV PRN (16:00)
[2020-04-22] MEDS: GLIPIZIDE S.A. 5 MG TAB PO SCH (17:01)
[2020-04-22] MEDS: INSULIN -REGULAR HUMAN 50 UNIT/0.5 ML ML SQ SCH ×2 (17:01→21:05)
[2020-04-22] MEDS: SOTALOL HCL 80 MG TAB PO SCH (17:02)
--- NOTE | 2020-04-22 20:29 | P.HP ---
Certification for Inpatient Patient admitted to: Inpatient With expected LOS: >2 Midnights Patient will require the following post-hospital care: None Practitioner: I am a practitioner with admitting privileges, knowledge of patient current condition, hospital course, and medical plan of care. Services: Services provided to patient in accordance with Admission requirements found in Title 42 Section 412.3 of the Code of Federal Regulations Patient History Date of Service: 04/22/20 Reason for admission: Acute CHF exacerbation History of Present Illness: Patient is a 74-year-old gentleman with a history of COVID-19 pneumonia. Patient was diagnosed about 2 months ago. Patient came into the hospital because he was short of breath. His chest x-ray revealed bilateral pulmonary edema. Patient BNP was also elevated. Patient also with elevated BUN/creatinine. Patient will be admitted to the hospital for gentle diuresing and will need to monitor his renal function closely. Will repeat his chest x- ray in the morning. Cardiology consultation as well as an echocardiogram. Last 1 was done about 8 months ago which revealed an ejection fraction of 40%. Patient will be admitted to the hospital for further evaluation. Allergies meperidine [From Demerol] Allergy (Verified 02/08/20 05:56) Unknown pseudoephedrine Allergy (Verified 02/08/20 05:56) Hives acetaminophen [From Vicodin] Adverse Reaction (Verified 02/08/20 05:56) Nausea/Vomiting codeine Adverse Reaction (Verified 02/08/20 05:56) Nausea/Vomiting hydrocodone bitartrate [From Vicodin] Adverse Reaction (Verified 02/08/20 05:56) Nausea/Vomiting fedrazil Allergy (Mild, Uncoded 02/08/20 05:56) Unknown Home Medications: Finasteride [Proscar*] 5 mg PO DAILY 04/14/18 Insulin Degludec [Tresiba Flextouch U-200] 40 units SQ DAILY 04/14/18 Liothyronine [Cytomel*] 1 tab PO DAILY 04/14/18 Losartan Potassium [Cozaar*] 50 mg PO DAILY 04/14/18 Tamsulosin HCl 0.4 mg PO DAILY 04/14/18 Vit C/Ascorb Sod/Multivit-Min [Emergen-C 500 mg Chewable Tab] 1,000 mg PO DAILY 04/14/18 Bumetanide [Bumex*] 1 mg PO DAILY 06/24/18 Famotidine 1 tab PO DAILY 05/26/19 Zinc 1 tab PO DAILY 05/26/19 Apixaban [Eliquis] 5 mg PO BID #60 tablet 05/28/19 Sotalol HCl [Betapace*] 80 mg PO BID 6AM 6PM #60 tab 05/28/19 Glipizide [Glipizide ER] 10 mg PO BID 02/08/20 Cholecalciferol (Vitamin D3) [Vitamin D 1000 Iu Tab*] 1,000 unit PO DAILY #90 tab 02/14/20 Acetaminophen [Tylenol Extra Strength] 500 mg PO Q6H PRN 04/22/20 Atorvastatin Calcium [Lipitor] 40 mg PO BEDTIME 04/22/20 Bee Pollen 1,013.3 mg PO BID 04/22/20 Cinnamon Bark [Cinnamon] 1,200 mg PO BID 04/22/20 Magnesium Oxide [Magnesium] 400 mg PO DAILY 04/22/20 carvediloL [Carvedilol] 6.25 mg PO BID 04/22/20 - Past Medical/Surgical History Diabetic: Yes -: Diabetes mellitus type 2 -: hypertention -: CAD -: chronic systolic CHF -: Atrial fibrillation on chronic anticoagulation -: Prostate cancer -: carotid stent -: CABG [id number] -: BKA left leg -: Prostate surgery -: bladder surgery -: skin graft Psychosocial/ Personal History: Patient lives at home with his family - Family History Father Medical History: Heart disease Mother Medical History: Lung disease Notes: COPD, leaking heart valve, emphysema - Social History Smoking Status: Never smoker Alcohol use: No CD- Drugs: No Caffeine use: Yes Place of Residence: Home Review of Systems 10-point ROS is otherwise unremarkable Physical Examination - Vital Signs Temperature: 97.6 F Blood Pressure: 148/75 Pulse: 84 Respirations: 18 Pulse Ox (%): 95 - Physical Exam General: Alert, In no apparent distress, Oriented x3 HEENT: Atraumatic, PERRLA, Mucous membr. moist/pink, EOMI, Sclerae nonicteric Neck: Supple, 2+ carotid pulse no bruit, No LAD, Without JVD or thyroid abnormality Respiratory: Diminished, Crackles/rales Cardiovascular: Regular rate/rhythm, Normal S1 S2, No murmurs Gastrointestinal: Normal bowel sounds, Soft and benign, Non-distended, No tenderness Musculoskeletal: No clubbing, No tenderness, Swelling, Other (Left above knee amputation) Integumentary: Pressure ulcer (Right pressure ulcer on the calf) Neurological: Normal speech, Normal tone, Sensation intact, Cranial nerves 3-12 intact, Normal affect, Abnormal gait Lymphatics: No axilla or inguinal lymphadenopathy - Studies Laboratory Data (last 24 hrs) 04/22/20 05:45: PT 14.2 H, INR 1.20 04/22/20 05:45: WBC 6.80, Hgb 11.3 L, Hct 33.4 L, Plt Count 235 04/22/20 05:45: Sodium 137, Potassium 5.0, BUN 45 H, Creatinine 1.55 H, Glucose 255 H, Magnesium 2.7 H, Total Bilirubin 0.4, AST 16, ALT 19, Alkaline Phosphatase 84 Assessment & Plan - Problems (Diagnosis) (1) Acute systolic (congestive) heart failure Current Visit: Yes Status: Acute (2) CAD (coronary artery disease) Onset Date: 04/15/18 Current Visit: No Status: Acute Qualifiers: (3) CKD (chronic kidney disease) Onset Date: 04/15/18 Current Visit: No Status: Acute (4) S/P CABG (coronary artery bypass graft) Current Visit: No Status: Acute (5) Hypertension Onset Date: 06/18/15 Current Visit: No Status: Chronic Qualifiers: (6) Renal insufficiency Onset Date: 12/08/16 Current Visit: No Status: Chronic (7) Type 2 diabetes mellitus with diabetic foot infection Current Visit: No Status: Resolved (8) Pressure ulcer of left leg, stage 2 Current Visit: No Status: Resolved - Plan 1. Echocardiogram will be repeated-last one was done in May of 2019 which rev ealed an ejection fraction of 40% 2. Continue wound care 3. Monitor oxygenation closely 4. Cardiology consultation 5. Aggressive diuresis 6. Strict I's and O's 7. Repeat CXR 8. Daily weights 9. Education regarding diet and treatment of congestive heart failure Discharge Plan: Home Plan to discharge in: Greater than 2 days - Advance Directives Does patient have a Living Will: No Does patient have a Durable POA for Healthcare: Yes - Code Status/Comfort Care Code Status Assessed: Yes Code Status: Full Code Critical Care: No Time Spent Managing PTS Care (In Minutes): 45
[2020-04-22] MEDS: carvediloL 6.25 MG TAB PO SCH (20:50)
[2020-04-22] MEDS: BEE POLLEN 550 MG PO SCH (21:00)
[2020-04-22] MEDS ORDERED: HOME MED 1 EA UNK (Glipizide [Glipizide Er] 10 MG Tab.Er.24) PO SCH (21:00)
[2020-04-22] MEDS ORDERED: ATORVASTATIN 40 MG TAB PO SCH (21:00)
[2020-04-23] MEDS: FUROSEMIDE 40 MG/4 ML VIAL IV SCH ×2 (00:11→09:02)
[2020-04-23 04:05] LABS: Absolute Lymphocytes (CBC) 0.7 K/uL (0.7-4.9); Basophils % 0.2 % (0-1.3); Hematocrit 35.1 % (39.6-49.0); MPV 8.3 fL (7.6-11.3); RBC Red Blood Cell Count 4.14 M/uL (4.33-5.43)
[2020-04-23 04:37] LABS: Albumin 3.2 g/dL (3.4-5.0); Bilirubin Total 0.6 mg/dL (0.2-1.0); Magnesium 2.4 mg/dL (1.8-2.4); Potassium 4.7 mmol/L (3.5-5.1)
[2020-04-23 04:55] LABS: Blood Morphology Comment NOTED (NOT SEEN); Burr Cells 2+; Platelet Estimate ADEQ
[2020-04-23] MEDS: SOTALOL HCL 80 MG TAB PO SCH (05:17)
[2020-04-23] MEDS ORDERED: LIOTHYRONINE SOD 25 MCG TAB PO SCH (06:30)
--- NOTE | 2020-04-23 08:20 | EKG ---
Test Date: 2020-04-22 Test Time: 05:53:02 Tool Maker Apprentice: LORENZO MEASUREMENT RESULTS: Intervals: Rate: 58 DC: 212 QRSD: 100 QT: 482 QTc: 473 Ransom: P: 43 DC: 212 QRS: 112 T: -45 INTERPRETIVE STATEMENTS: Sinus bradycardia with 1st degree AV block Right axis deviation Nonspecific T wave abnormality Prolonged QT Abnormal ECG Compared to ECG 02/12/2020 21:02:24 First degree AV block now present Sinus rhythm no longer present T-wave abnormality still present Electronically Signed On 04-23-20 08:17:49 LANGUAGE INSTRUCTOR by Haresh Kelley
--- NOTE | 2020-04-23 08:47 | P.DS ---
Admission Date: 04/22/20 Discharge Date: 04/23/20 Primary Care Provider: Dr. Greene; Cardiology-Dr. Kelley Disposition: ROUTINE DISCHARGE Discharge Condition: GOOD Reason for Admission: Acute CHF exacerbation Consultations: Cardiology-Dr. Kelley Procedures: COVID: Positive CXR: FINDINGS: Moderate right and [id number] left pulmonary opacities Cardiomegaly. Postsurgical changes involve the chest IMPRESSION: Moderate right and [id number] left pulmonary opacities probably pneumonia. Pulmonary edema is another consideration Medical Problem List: Dyspnea secondary to acute on chronic systolic CHF Atrial fibrillation on chronic anti coagulation therapy Hypertension Diabetes mellitus type 2 insulin dependent Chronic renal disease stage III BPH Hyperlipidemia CAD GERD Hypothyroidism COVID positive, asymptomatic Brief History of Present Illness: 74-year-old male with a history of CHF, hypothyroidism, hypertension, diabetes mellitus type 2, and atrial fibrillation on chronic anti coagulation therapy. Patient was diagnosed with COVID-19 pneumonia about 2 months ago. Patient presented with increasing shortness of breath. Patient reports decreasing his diuretic therapy at home. Previous echocardiogram shows ejection fraction around 40%. Patient admitted for further evaluation and treatment. Hospital Course: Patient presented with acute on chronic systolic CHF. Patient was admitted for treatment. Patient responded well to diuretic therapy. Patient is not on a fluid restriction at home. He had decreased his diuretic therapy as well. Medications were adjusted during the course of his stay. Shortness of breath has resolved. Room-air saturations within normal range. No significant shortness of breath at discharge. At discharge the patient will continue 1500 cc per day fluid restriction and low-salt diet. Recommend to monitor his weight daily. If his weight increases by more than 5 lb he is to contact his PCP or cardiology for further recommendation. At discharge will increase Bumex to 1 mg twice daily. Recommend follow up with cardiology or his PCP within 1 week. Further adjustment in his medication may be required. This can be done with the help of his PCP. Education on CHF provided. Patient with atrial fibrillation on chronic anti coagulation therapy. At discharge patient will continue with his medications of Eliquis 5 mg 1 pill twice daily and Betapace 80 mg 1 pill twice daily. Recommend follow up with cardiology to further monitor and address. Patient with hypertension. At discharge patient will continue with his medication of losartan 50 mg daily. Recommend to maintain blood pressure less than 130/80. Further adjustment can be done by his PCP. Patient with hyperlipidemia. At discharge patient will continue with Lipitor 40 mg daily. Patient with BPH. At discharge patient will continue with Flomax 0.4 mg daily and Proscar 5 mg 1 pill daily. Patient with diabetes mellitus type 2 insulin dependent. This has remained stable. At discharge he will continue with glipizide 10 mg 1 pill twice daily and Tresiba 40 units at bedtime. Recommend to maintain blood sugar less 140 fasting less than 200 after meals. Further adjustment can be done by his PCP. Patient with GERD. At discharge patient will continue with Pepcid 20 mg daily. Patient with hypothyroidism. At discharge patient will continue with Cytomel 25 mcg daily. Patient with history of COVID. Patient was treated about 2 months ago. Patient remains asymptomatic. At discharge patient will continue quarantine for at least 10 days. Education on the CDC guidelines for COVID isolation will be provided. Patient may return to work after 10 days. Patient will need to continue with social distancing, fask mask use, and hand washing. Vital Signs/Physical Exam: Temp Pulse Resp BP Pulse Ox 98.2 F 66 16 116/58 L 96 04/23/20 08:00 04/23/20 08:00 04/23/20 08:00 04/23/20 08:00 04/23/20 08:00 General: Alert, In no apparent distress, Oriented x3, Cooperative HEENT: Atraumatic Neck: Supple Respiratory: Clear to auscultation bilaterally, Normal air movement Cardiovascular: Normal pulses, Regular rate/rhythm Gastrointestinal: Normal bowel sounds, Soft and benign, Non-distended, No rebound, No guarding Neurological: Normal speech, Normal strength at 5/5 x4 extr, Normal tone, Normal affect Laboratory Data at Discharge: WBC 9.50 K/uL (4.3-10.9) D 04/23/20 03:20 Hgb 11.9 g/dL (13.6-17.9) L 04/23/20 03:20 Hct 35.1 % (39.6-49.0) L 04/23/20 03:20 Plt Count 275 K/uL (152-406) 04/23/20 03:20 PT 14.2 SECONDS (9.5-12.5) H 04/22/20 05:45 INR 1.20 04/22/20 05:45 Sodium 139 mmol/L (136-145) 04/23/20 03:20 Potassium 4.7 mmol/L (3.5-5.1) 04/23/20 03:20 BUN 48 mg/dL (7-18) H 04/23/20 03:20 Creatinine 1.62 mg/dL (0.55-1.3) H 04/23/20 03:20 Glucose 264 mg/dL (74-106) H 04/23/20 03:20 Phosphorus 4.0 mg/dL (2.5-4.9) 04/23/20 03:20 Magnesium 2.4 mg/dL (1.8-2.4) 04/23/20 03:20 Total Bilirubin 0.6 mg/dL (0.2-1.0) 04/23/20 03:20 AST 14 U/L (15-37) L 04/23/20 03:20 ALT 18 U/L (12-78) 04/23/20 03:20 Alkaline Phosphatase 85 U/L (45-117) 04/23/20 03:20 Troponin I < 0.02 ng/mL (0.0-0.045) 04/22/20 20:23 Home Medications: Finasteride [Proscar*] 5 mg PO DAILY 04/14/18 Insulin Degludec [Tresiba Flextouch U-200] 40 units SQ DAILY 04/14/18 Liothyronine [Cytomel*] 1 tab PO DAILY 04/14/18 Losartan Potassium [Cozaar*] 50 mg PO DAILY 04/14/18 Tamsulosin HCl 0.4 mg PO DAILY 04/14/18 Vit C/Ascorb Sod/Multivit-Min [Emergen-C 500 mg Chewable Tab] 1,000 mg PO DAILY 04/14/18 Famotidine 1 tab PO DAILY 05/26/19 Zinc 1 tab PO DAILY 05/26/19 Apixaban [Eliquis] 5 mg PO BID #60 tablet 05/28/19 Sotalol HCl [Betapace*] 80 mg PO BID 6AM 6PM #60 tab 05/28/19 Glipizide [Glipizide ER] 10 mg PO BID 02/08/20 Cholecalciferol (Vitamin D3) [Vitamin D 1000 Iu Tab*] 1,000 unit PO DAILY #90 tab 02/14/20 Acetaminophen [Tylenol Extra Strength] 500 mg PO Q6H PRN 04/22/20 Atorvastatin Calcium [Lipitor] 40 mg PO BEDTIME 04/22/20 Bee Pollen 1,013.3 mg PO BID 04/22/20 Cinnamon Bark [Cinnamon] 1,200 mg PO BID 04/22/20 Magnesium Oxide [Magnesium] 400 mg PO DAILY 04/22/20 Bumetanide [Bumex*] 1 mg PO BID #60 tab 04/23/20 New Medications: Bumetanide [Bumex*] 1 mg PO BID #60 tab Patient Discharge Instructions: Recommend follow up with PCP in 1 week to follow up this hospitalization. Patient presented with acute on chronic systolic CHF. Patient was admitted for treatment. Patient responded well to diuretic therapy. Patient is not on a fluid restriction at home. He had decreased his diuretic therapy as well. Medications were adjusted during the course of his stay. Shortness of breath has resolved. Room-air saturations within normal range. No significant shortness of breath at discharge. At discharge the patient will continue 1500 cc per day fluid restriction and low-salt diet. Recommend to monitor his weight daily. If his weight increases by more than 5 lb he is to contact his PCP or cardiology for further recommendation. At discharge will increase Bumex to 1 mg twice daily. Recommend follow up with cardiology or his PCP within 1 week. Further adjustment in his medication may be required. This can be done with the help of his PCP. Education on CHF provided. Patient with atrial fibrillation on chronic anti coagulation therapy. At discharge patient will continue with his medications of Eliquis 5 mg 1 pill twice daily and Betapace 80 mg 1 pill twice daily. Recommend follow up with cardiology to further monitor and address. Patient with hypertension. At discharge patient will continue with his medication of losartan 50 mg daily. Recommend to maintain blood pressure less than 130/80. Further adjustment can be done by his PCP. Patient with hyperlipidemia. At discharge patient will continue with Lipitor 40 mg daily. Patient with BPH. At discharge patient will continue with Flomax 0.4 mg daily and Proscar 5 mg 1 pill daily. Patient with diabetes mellitus type 2 insulin dependent. This has remained stable. At discharge he will continue with glipizide 10 mg 1 pill twice daily and Tresiba 40 units at bedtime. Recommend to maintain blood sugar less 140 fasting less than 200 after meals. Further adjustment can be done by his PCP. Patient with GERD. At discharge patient will continue with Pepcid 20 mg daily. Patient with hypothyroidism. At discharge patient will continue with Cytomel 25 mcg daily. Patient with history of COVID. Patient was treated about 2 months ago. Patient remains asymptomatic. At discharge patient will continue quarantine for at least 10 days. Education on the CDC guidelines for COVID isolation will be provided. Patient may return to work after 10 days. Patient will need to continue with social distancing, fask mask use, and hand washing. Diet: AHA Activity: Ad joao Followup: NONE,NONE [Primary Care Provider] - Time spent managing pt's care (in minutes): 55
[2020-04-23] MEDS ORDERED: ZINC SULFATE 220 MG CAP PO SCH (09:00)
[2020-04-23] MEDS ORDERED: MAGNESIUM OXIDE 400 MG TAB PO SCH (09:00)
[2020-04-23] MEDS ORDERED: HOME MED 1 EA UNK (Zinc [Zinc] 50 MG Tablet) PO SCH (09:00)
[2020-04-23] MEDS ORDERED: VIT C PO SCH (09:00)
[2020-04-23] MEDS ORDERED: MULTIVIT MIN PO SCH (09:00)
[2020-04-23] MEDS ORDERED: TAMSULOSIN 0.4 MG SR CAP PO SCH (09:00)
[2020-04-23] MEDS ORDERED: FINASTERIDE 5 MG TAB PO SCH (09:00)
[2020-04-23] MEDS ORDERED: LOSARTAN POTASSIUM 50 MG TABLET PO SCH (09:00)
[2020-04-23] MEDS: GLIPIZIDE S.A. 5 MG TAB PO SCH (09:00)
[2020-04-23] MEDS ORDERED: HOME MED 1 EA UNK (Magnesium Oxide [Magnesium] 400 MG Capsule) PO SCH (09:00)
[2020-04-23] MEDS: BEE POLLEN 550 MG PO SCH (09:00)
[2020-04-23] MEDS ORDERED: FAMOTIDINE 20 MG TAB PO SCH (09:00)
[2020-04-23] MEDS ORDERED: ASCORB SOD PO SCH (09:00)
[2020-04-23] MEDS ORDERED: VITAMIN D 1000 UNIT TAB PO SCH (09:00)
[2020-04-23] MEDS ORDERED: INSULN SQ SCH (09:00)
[2020-04-23] MEDS ORDERED: INSULIN DEGLUDEC 200 UNIT/ML SQ SCH (09:00)
[2020-04-23] MEDS: carvediloL 6.25 MG TAB PO SCH (09:01)
[2020-04-23] MEDS: ASPIRIN EC 81 MG TAB PO SCH (09:01)
[2020-04-23] MEDS: INSULIN -REGULAR HUMAN 50 UNIT/0.5 ML ML SQ SCH ×2 (09:02→11:49)
--- NOTE | 2020-04-23 10:17 | RAD REPORT ---
EXAM DESCRIPTION: Marisol Single View04/23/2020 10:05 am CLINICAL HISTORY: Shortness of breath COMPARISON: April 22 FINDINGS: Partial resolution in bilateral pulmonary opacities. The heart remains enlarged. Postsurgi jamel changes involve the chest IMPRESSION: Improvement in the bilateral pulmonary opacities
[2020-04-23] MEDS: APIXABAN 5 MG TABLET PO SCH (10:41)
[2020-04-23 13:11] VITALS: BP 121/58; TEMP 97.5
[2020-04-23 14:15] VITALS: O2SAT 95
--- NOTE | 2020-04-25 05:28 | CON ---
Date of Consultation: 04/23/2020 Reason For Consultation: Congestive heart failure. I saw the patient on 04/23/2020. History Of Present Illness: Mr. Collins is a 74-year-old white male, who is very well known to me from the admission. He is COVID positive. Chest x-ray showed pneumonia versus edema. Came in with short ness of breath, feeling much better with diuresis. He has denied any nausea, vomiting, diaphoresis, chest pain. He denies pedal edema. Has mostly had PND and orthopnea. Denied any fever or chills. Has had some cough, which is nonproductive. Last echocardiogram was in May 2019 showing an ejectio n fraction of 40% to 45% . Past Medical History: Includes; 1.History of left BKA. 2.Gastroesophageal reflux disease. 3.Diabetes. 4.Hypertension. 5.CAD, status post CABG. 6.History of chronic systolic congestive heart failure. 7.History of prostate cancer. 8.History of hypothyroidism. Allergies: INCLUDE DEMEROL, TYLENOL, AND CODEINE. Medications: Include glipizide, losartan, sotalol, Eliquis, Lipitor, Pepcid, and Bumex. Physical Examination: General: Mr. Collins is a very pleasant, no acute distress. Vital Signs: Stable, afebrile, sinus rhythm. HEENT: Negative. Neck: Supple with no bruit. Chest: Revealed rales at both bases. Cardiac: Revealed a regular rhythm and rate. No murmurs, gallops, or rubs. Abdomen: Benign. Extremities: Revealed trace edema. Diagnostic Data: Chest x-ray showed pneumonia versus edema. EKG is nonspecific. BNP is creatinine is 1.55. He is COVID positive. Impression And Plan: 1.Acute on chronic systolic congestive heart failure. 2.COVID pneumonia. 3.Coronary artery disease, status post coronary artery bypass graft. 4.Peripheral artery disease, status post left BKA. 5.Diabetes. 6.Hypertension. 7.Hypothyroidism. 8.Gastroesophageal reflux disease. 9.Prostate cancer. 10.Renal insufficiency, stage III. 11.Elevated BNP secondary to congestive heart failure. Mr. Collins needs to have a repeat echocardiogram to see what his ejection fraction is. IV L asix. I think he is comfortable enough to go home today. We should increase his Bumex at home on an as-needed basis. We should continue the sotalol and Eliquis for his atrial fibrillation that is con trolled now in sinus rhythm. We should continue with . We will watch his creatinine, ejec tion fraction, and progress as an outpatient. JAVIER/FRANCY Voice ID: [id number] Report ID: [id number]
== END 2020-04-23 13:40 | disposition home or self-care (01) | DRG 291 ==
LOC: ER 05:07 → ERHOLD 07:42 → 3RD-ICU 13:07 → 4TH 16:20
PROVIDERS: ADMIT Hospitalist; ATTEND Family Medicine
DX: I13.0 Hypertensive heart and chronic kidney disease with heart failure and stage 1 through stage 4 chronic kidney disease, or unspecified chronic kidney disease (principal); U07.1 COVID-19; I50.23 Acute on chronic systolic (congestive) heart failure; J12.82 Pneumonia due to coronavirus disease 2019; N17.9 Acute kidney failure, unspecified; N18.30 Chronic kidney disease, stage 3 unspecified; E11.22 Type 2 diabetes mellitus with diabetic chronic kidney disease; E11.51 Type 2 diabetes mellitus with diabetic peripheral angiopathy without gangrene; L89.892 Pressure ulcer of other site, stage 2; E78.5 Hyperlipidemia, unspecified; E03.9 Hypothyroidism, unspecified; K21.9 Gastro-esophageal reflux disease without esophagitis; N40.0 Benign prostatic hyperplasia without lower urinary tract symptoms; I48.91 Unspecified atrial fibrillation; I25.10 Atherosclerotic heart disease of native coronary artery without angina pectoris; Z88.5 Allergy status to narcotic agent; Z88.8 Allergy status to other drugs, medicaments and biological substances; Z85.46 Personal history of malignant neoplasm of prostate; Z89.512 Acquired absence of left leg below knee; Z95.5 Presence of coronary angioplasty implant and graft; Z95.1 Presence of aortocoronary bypass graft; Z79.4 Long term (current) use of insulin; Z79.01 Long term (current) use of anticoagulants; Z79.899 Other long term (current) drug therapy
CPT/HCPCS: 36415; 71045; 80048; 80053; 80076; 81003; 82947; 83735; 83880; 84100; 84484; 85025; 85379; 85610; 87040; 93005; 99285; J0696; J1100; J1940; U0003

== ENCOUNTER 2022-08-22 11:04 | Emergency (ER) | payer BC ==
[2022-08-22] MEDS ORDERED: ONDANSETRON 4 MG/2 ML VIAL ONE (11:25)
[2022-08-22] MEDS ORDERED: Ringers Lactate 1,000 ML IV ONE (11:25)
[2022-08-22 11:29] LABS: Absolute Lymphocytes (CBC) 0.6 K/uL (0.7-4.9); Hematocrit 43.2 % (39.6-49.0); Lymphocytes % 7.9 % (15.3-44.8); MCV 85.9 fL (80-100); MPV 7.2 fL (7.6-11.3); RBC Red Blood Cell Count 5.03 M/uL (4.33-5.43)
[2022-08-22 11:45] LABS: Albumin 3.7 g/dL (3.4-5.0); Bilirubin Total 1.3 mg/dL (0.2-1.0); Potassium 4.8 mEq/L (3.5-5.1); Protein, Total 7.5 g/dL (6.4-8.2)
--- NOTE | 2022-08-22 14:05 | EDPHYS ---
Physician Documentation [facility] Name: Navjot Collins Age: 77 yrs Sex: Male : 1945 Arrival Date: 08/22/2022 Time: 11:04 Bed 6 Private MD: ED Physician Lazaro Butler HPI: 08/22 11:10 This 77 yrs old Male presents to ER via EMS with complaints of Nausea/Vomiting/Diarrhea.jmm 11:10 The patient presents to the emergency department with nausea, vomiting, diarrhea. jmm Onset: The symptoms/episode began/occurred acutely. 11:10 Is a 77-year-old male with history of atrial fibrillation, coronary artery disease, jmm diabetes mellitus, CHF, prostate cancer, hypertension the presents emerged department with complaints of vomiting and diarrhea. Symptoms initially began with back pain. Patient currently denies any pain. States he is have never had abdominal pain. Patient states he feels dehydrated and fatigued.. Historical: - Allergies: 11:06 Codeine; ld1 11:06 Demerol; ld1 11:06 fedrazil; ld1 11:06 Vicodin; ld1 - PMHx: 11:06 Atrial Fib; CAD; Diabetes - IDDM; CHF; PROSTATE CA; HTN; ld1 - Immunization history:: Adult Immunizations up to date, Client reports receiving the 2nd dose of the Covid vaccine. - Social history:: Smoking status: Patient denies any tobacco usage or history of. Patient/guardian denies using alcohol. ROS: 11:10 Constitutional: Negative for fever, chills, and weight loss, Cardiovascular: Negative jmm for chest pain, palpitations, and edema, Respiratory: Negative for shortness of breath, cough, wheezing, and pleuritic chest pain. 11:10 Abdomen/GI: Positive for vomiting, diarrhea. 11:10 All other systems are negative. Exam: 11:10 Constitutional: This is a well developed, well nourished patient who is awake, alert, jmm and in no acute distress. Head/Face: atraumatic. Eyes: EOMI, no conjunctival erythema appreciated ENT: Moist Mucus Membranes Neck: Trachea midline, Supple Chest/axilla: Normal chest wall appearance and motion. Cardiovascular: Regular rate and rhythm. No edema appreciated Respiratory: Normal respirations, no respiratory distress appreciated 11:10 Back: Normal ROM Skin: General appearance color normal MS/ Extremity: Moves all extremities, no obvious deformities appreciated, no edema noted to the lower extremities Neuro: Awake and alert Psych: Behavior is normal, Mood is normal, Patient is cooperative and pleasant 11:10 Abdomen/GI: Inspection: abdomen appears normal, Bowel sounds: normal, Palpation: soft, nontender, in all quadrants. Vital Signs: 11:07 Pulse 56; Resp 18; Temp 98.2; Pulse Ox 100% on R/A; Pain 0/10; ld1 11:07 BP 134 / 68; ld1 12:28 BP 108 / 47; Pulse 58; Resp 18; Pulse Ox 99% on R/A; ld1 13:52 BP 113 / 51; Pulse 74; Resp 18; Pulse Ox 99% on R/A; ld1 11:07 Pain Scale: Adult ld1 MDM: 11:11 Patient medically screened. [facility] 11:49 Differential diagnosis: Nonspecific abd pain, gastritis, cholecystitis, pancreatitis, [facility] appendicitis, diverticulitis, viral gastroenteritis, gastroenteritis. Data reviewed: vital signs, nurses notes. 11:49 Consideration of Admission/Observation Escalation of care including [facility] admission/observation considered. I considered the following discharge prescriptions or medication management in the emergency department Medications were administered in the Emergency Department. See MAR. Counseling: I had a detailed discussion with the patient and/or guardian regarding: the historical points, exam findings, and any diagnostic results supporting the discharge/admit diagnosis, lab results, the need for outpatient follow up, to return to the emergency department if symptoms worsen or persist or if there are any questions or concerns that arise at home. Refusal of service: The patient/guardian displays adequate decision making capability and despite a detailed discussion of alternatives, benefits, risks, and consequences refuses: Ultrasound. ED course: Patient states feeling much better. Able to tolerate p.o. in the ED after antiemetics given. Patient otherwise given strict return precautions. Patient understood and agrees plan of care.. 08/22 11:10 Order name: CBC with Diff; Complete Time: 11:33 ld08/22 11:10 Order name: CMP; Complete Time: 11:49 ld1 08/22 11:10 Order name: Lipase; Complete Time: 11:49 ld08/22 11:10 Order name: IV Saline Lock; Complete Time: 11:20 ld08/22 11:10 Order name: Labs collected and sent; Complete Time: :20 ld1 Administered Medications: 11:20 Drug: Lactated Ringers Solution IV 1000 ml Route: IV; Rate: 1000 bolus; Site: right ld1 antecubital; 11:20 Drug: Ondansetron IVP 4 mg Route: IVP; Site: right antecubital; ld1 Disposition: 18:25 Co-signature as Attending Physician, Lazaro Butler MD I reviewed the patient's care rt provided by the Advanced Practice Provider and agree with the diagnosis and treatment plan. Disposition Summary: 08/22/22 14:05 Discharge Ordered Location: Home jmm Condition: Stable jmm Diagnosis - Vomiting jmm - Diarrhea, unspecified jmm Followup: jmm - With: Private Physician - When: 2 - 3 days - Reason: Recheck today's complaints, Continuance of care, Re-evaluation by your physician Discharge Instructions: - Discharge Summary Sheet jmm - Food Choices to Help Relieve Diarrhea, Adult jmm - Diarrhea, Adult jmm - Vomiting, Adult jmm Forms: - Medication Reconciliation Form jmm - Thank You Letter jmm - Antibiotic Education jmm - Prescription Opioid Use jmm - Work release form mb9 Prescriptions: - ondansetron 4 mg Oral Tablet,disintegrating - take 1 tablet by ORAL route every 4 to 6 hours As needed; 30 tablet; Refills: jmm 0, Product Selection Permitted - dicyclomine 20 mg Oral Tablet - take 1 tablet by ORAL route 4 times per day As needed; 30 tablet; Refills: 0, jmm Product Selection Permitted Signatures: Dispatcher [employer] EDKristopher Garcia PA PA jmm Sims, Lauren, RN RN ld1 Lazaro Butler MD MD rt Corrections: (The following items were deleted from the chart) 12:57 11:50 Abdomen Limited+US.RAD.BRZ ordered. EDMS EDMS
--- NOTE | 2022-08-22 14:05 | ER ---
Nurse's Notes [facility] Name: Navjot Collins Age: 77 yrs Sex: Male : 1945 Arrival Date: 08/22/2022 Time: 11:04 Bed 6 Private MD: Diagnosis: Vomiting;Diarrhea, unspecified Presentation: 08/22 11:07 Chief complaint: EMS states: toned out to patient home for N/V/D X 1 day. Coronavirus ld1 screen: At this time, the client does not indicate any symptoms associated with coronavirus-19. Ebola Screen: No symptoms or risks identified at this time. Initial Sepsis Screen: Does the patient meet any 2 criteria? No. Patient's initial sepsis screen is negative. Does the patient have a suspected source of infection? No. Patient's initial sepsis screen is negative. Risk Assessment: Do you want to hurt yourself or someone else? Patient reports no desire to harm self or others. Onset of symptoms was August 22, 2022. 11:07 Method Of Arrival: EMS: [facility] ld1 11:07 Acuity: ZENAIDA 3 ld1 Triage Assessment: 11:07 General: Appears in no apparent distress. uncomfortable, Behavior is calm, cooperative, ld1 appropriate for age. Pain: Denies pain. EENT: No signs and/or symptoms were reported regarding the EENT system. Neuro: Level of Consciousness is awake, alert, obeys commands, Oriented to person, place, time, situation. Cardiovascular: Capillary refill < 3 seconds Patient's skin is warm and dry. Respiratory: Airway is patent Respiratory effort is even, unlabored. GI: Abdomen is flat, non-distended, Reports diarrhea, nausea, vomiting. : No signs and/or symptoms were reported regarding the genitourinary system. Derm: No signs and/or symptoms reported regarding the dermatologic system. Musculoskeletal: No signs and/or symptoms reported regarding the musculoskeletal system. Historical: - Allergies: 11:06 Codeine; ld1 11:06 Demerol; ld1 11:06 fedrazil; ld1 11:06 Vicodin; ld1 - PMHx: 11:06 Atrial Fib; CAD; Diabetes - IDDM; CHF; PROSTATE CA; HTN; ld1 - Immunization history:: Adult Immunizations up to date, Client reports receiving the 2nd dose of the Covid vaccine. - Social history:: Smoking status: Patient denies any tobacco usage or history of. Patient/guardian denies using alcohol. Screenin:09 [facility] ED Fall Risk Assessment (Adult) History of falling in the last 3 months, ld1 including since admission No falls in past 3 months (0 pts). Abuse screen: Denies threats or abuse. Denies injuries from another. Nutritional screening: No deficits noted. Tuberculosis screening: No symptoms or risk factors identified. Assessment: 11: Reassessment: See triage assessment. ld1 14:23 Reassessment: No changes from previously documented assessment. Patient and/or family mb9 updated on plan of care and expected duration. Pain level reassessed. Patient is alert, oriented x 3, equal unlabored respirations, skin warm/dry/pink. Patient states feeling better. Patient states symptoms have improved. Vital Signs: 11:07 Pulse 56; Resp 18; Temp 98.2; Pulse Ox 100% on R/A; Pain 0/10; ld1 11:07 BP 134 / 68; ld1 12:28 BP 108 / 47; Pulse 58; Resp 18; Pulse Ox 99% on R/A; ld1 13:52 BP 113 / 51; Pulse 74; Resp 18; Pulse Ox 99% on R/A; ld1 11:07 Pain Scale: Adult ld1 ED Course: 11:06 Patient arrived in ED. ld1 11:07 Arm band placed on right wrist. ld1 11:08 Kristopher Tony PA is PHCP. [facility] 11:08 Hasmukh Philippe MD is Attending Physician. [facility] 11: Triage completed. ld1 11: Patient has correct armband on for positive identification. Placed in gown. Bed in low ld1 position. Call light in reach. Side rails up X2. alarm security or surveillance monitor on. Pulse ox on. NIBP on. Door closed. Noise minimized. Warm blanket given. 11: No provider procedures requiring assistance completed. ld1 11:20 Inserted saline lock: 20 gauge in right antecubital area, using aseptic technique. ld1 Blood collected. 11:33 Lazaro Butler MD is Attending Physician. [facility] 14:23 IV discontinued, intact, bleeding controlled, No redness/swelling at site. Pressure mb9 dressing applied. Administered Medications: 11:20 Drug: Lactated Ringers Solution IV 1000 ml Route: IV; Rate: 1000 bolus; Site: right ld1 antecubital; 11:20 Drug: Ondansetron IVP 4 mg Route: IVP; Site: right antecubital; ld1 Medication: 14:28 VIS not applicable for this client. mb9 Outcome: 14:05 Discharge ordered by . poli 14:23 Discharged to home ambulatory. mb9 14:23 Condition: stable 14:23 Discharge instructions given to patient, Instructed on discharge instructions, follow up and referral plans. Demonstrated understanding of instructions, follow-up care, medications, Prescriptions given X 2. 14:28 Patient left the ED. mb9 Signatures: Kristopher Tony PA PA jmm Sims, Lauren RN RN ld1 Isis Vasquez RN RN mb9
[2022-08-22 15:03] VITALS: TEMP 98.2
[2022-08-22 15:05] VITALS: O2SAT 99
[2022-08-22 15:06] VITALS: BP 113/51
== END 2022-08-22 14:28 | disposition home or self-care (01) ==
LOC: ER 11:04
DX: R11.10 Vomiting, unspecified (principal); R19.7 Diarrhea, unspecified; I10 Essential (primary) hypertension; I48.91 Unspecified atrial fibrillation; I50.9 Heart failure, unspecified; Z88.5 Allergy status to narcotic agent; Z88.8 Allergy status to other drugs, medicaments and biological substances
CPT/HCPCS: 85025; 36415; 83690; 80053; 96374; 99285; J2405; J7120

== ENCOUNTER 2023-01-06 16:35 | Emergency (ER) | payer BC ==
--- NOTE | 2023-01-06 18:18 | RAD REPORT ---
EXAM DESCRIPTION: RAD - Ankle Right 3 View - 01/06/2023 5:34 pm CLINICAL HISTORY: SWELLING COMPARISON: No comparisons TECHNIQUE: Right ankle, 3 views. FINDINGS: No fracture, dislocation or periosteal reaction. Fairly marginated lesion at the base of t he calcaneus with marrow marginal zone of sclerosis, nonspecific, may represent nonossifying fibroma or bone infarct. Small calcaneal spur. Vascular calcifications. Soft tissue irregularities at the aranza l and overlying the lateral malleolus with some soft tissue swelling. No joint effusion seen. No join t space narrowing. No soft tissue abnormality. IMPRESSION: No acute fracture. Soft tissue abnormalities and nonspecific marginal sclerotic lesion i n the base of the calcaneus as above.
--- NOTE | 2023-01-06 18:32 | EDPHYS ---
Physician Documentation [facility] Name: Navjot Collins Age: 77 yrs Sex: Male : 1945 Arrival Date: 01/06/2023 Time: 16:35 Bed 10 Private MD: ED Physician Diogo Jacobo HPI: 01/06 17:15 This 77 yrs old Male presents to ER via Ambulatory with complaints of Laceration to cp right ankle. 17:15 The patient presents with a laceration. The complaints affect the right ankle. Context: cp injury occurred about 1 month ago. 17:15 Patient reports laceration to lateral side of right ankle occurred about 1 month ago. cp Wound seemed to be healing until today when it started bleeding after he believes striking area. Patient denies odorous or purulent drainage. Minimal pain. Historical: - Allergies: 16:55 Codeine; ap3 16:55 Demerol; ap3 16:55 fedrazil; ap3 16:55 Vicodin; ap3 - PMHx: 16:55 Atrial Fib; Atrial Fib; CAD; CAD; CHF; Diabetes - IDDM; HTN; PROSTATE CA; ap3 - Immunization history:: Client reports receiving the 2nd dose of the Covid vaccine. - Social history:: Smoking status: Patient denies any tobacco usage or history of. ROS: 17:20 Constitutional: Negative for body aches, chills, fever, poor PO intake, cp 17:20 Skin: Positive for of the right lateral malleolus, open wound, cp 17:20 Neuro: Negative for altered mental status, headache, weakness, 17:20 All other systems are negative, Exam: 17:25 Constitutional: The patient appears in no acute distress, alert, awake, comfortable, cp non-diaphoretic, non-toxic, well developed, well nourished, 17:25 Head/Face: Normocephalic, atraumatic. cp 17:25 Eyes: Periorbital structures: appear normal, Conjunctiva: normal, no exudate, no injection, Sclera: no appreciated abnormality, Lids and lashes: appear normal, bilaterally, 17:25 ENT: External ear(s): are unremarkable, Nose: is normal, Mouth: Lips: moist, Oral mucosa: pink and intact, moist, Posterior pharynx: Airway: no evidence of obstruction, patent, 17:25 Chest/axilla: Inspection: normal, 17:25 Cardiovascular: Rate: bradycardic, Pulses: right dorsalis pedis is weak, Edema: is not appreciated, 17:25 Respiratory: the patient does not display signs of respiratory distress, Respirations: normal, no use of accessory muscles, no retractions, labored breathing, is not present, 17:25 Skin: dime size open wound wound noted lateral right malleolus, with mild surrounding erythema and swelling noted, no active bleeding and no drainage expressed. wound depth appears through dermis. Vital Signs: 16:53 BP 107 / 60; Pulse 52; Resp 18; Temp 98.2; Pulse Ox 98% on R/A; Weight 87.54 kg; ap3 MDM: 17:00 Patient medically screened. cp 17:30 Differential diagnosis: foreign body, osteomyelitis, sepsis, abscess, cellulitis. cp 18:30 Data reviewed: vital signs, nurses notes, radiologic studies, plain films. cp 18:30 Care significantly affected by the following chronic conditions: Diabetes, cp Hypertension, Congestive Heart Failure, PAD. Counseling: I had a detailed discussion with the patient and/or guardian regarding the historical points, exam findings, and any diagnostic results supporting the discharge/admit diagnosis, radiology results, the need for outpatient follow up, a family practitioner. 01/06 17:11 Order name: XRAY Ankle RIGHT 3 view; Complete Time: 18:20 cp 01/06 18:21 Interpretation: Report reviewed. 01/06 18:18 Order name: Wound dressing; Complete Time: 18:37 cp Administered Medications: 18:37 Drug: Bacitracin Topical Ointment (500 unit/g) 1 application Topical once Route: cm10 Topical; Site: affected area; Disposition Summary: 01/06/23 18:31 Discharge Ordered Notes: Location: Home cp Problem: new cp Symptoms: have improved cp Condition: Stable cp Diagnosis - Leg Laceration/ Open wound of lower leg - right lateral ankle cp Followup: cp - With: Private Physician - When: 1 week - Reason: Wound Recheck Discharge Instructions: - Discharge Summary Sheet cp - Nonsutured Laceration Care cp - Form - Return To Work cp Forms: - Medication Reconciliation Form cp - Thank You Letter cp - Antibiotic Education cp - Prescription Opioid Use cp - Patient Portal Instructions cp - Leadership Thank You Letter cp Prescriptions: - Cephalexin 500 mg Oral Capsule - take 1 capsule ORAL route every 8 hours for 10 days; 30 capsule; Refills: 0, cp Product Selection Permitted Signatures: Dispatcher [employer] Davon Araujo PA PA cp Prokisch, Amanda, RN RN ap3 Melanie Kendrick RN RN cm10
--- NOTE | 2023-01-06 18:32 | ER ---
Nurse's Notes [facility] Name: Navjot Collins Age: 77 yrs Sex: Male : 1945 Arrival Date: 01/06/2023 Time: 16:35 Bed 10 Private MD: Diagnosis: Leg Laceration/ Open wound of lower leg-right lateral ankle Presentation: 01/06 16:53 Chief complaint: Patient states: he had previously cut his right ankle approx one month ap3 ago. patient states the wound was about healed, when he "bumped" the wound the wound opened back up. patient denies pain, but reports being on a blood thinner. bleeding is controlled at this time. Coronavirus screen: At this time, the client does not indicate any symptoms associated with coronavirus-19. Ebola Screen: No symptoms or risks identified at this time. Initial Sepsis Screen: Does the patient meet any 2 criteria? No. Patient's initial sepsis screen is negative. Does the patient have a suspected source of infection? No. Patient's initial sepsis screen is negative. Risk Assessment: Do you want to hurt yourself or someone else? Patient reports no desire to harm self or others. Onset of symptoms is unknown. 16:53 Method Of Arrival: Ambulatory ap3 16:53 Acuity: ZENAIDA 4 ap3 Triage Assessment: 16:56 General: Appears in no apparent distress. Behavior is calm, cooperative, appropriate ap3 for age. Pain: Denies pain. Neuro: Level of Consciousness is awake, alert, obeys commands, Oriented to person, place, time. Cardiovascular: Patient's skin is warm and dry. Respiratory: Airway is patent Respiratory effort is even, unlabored, Respiratory pattern is regular, symmetrical. Derm: Reports wound on the lateral right ankle. Historical: - Allergies: 16:55 Codeine; ap3 16:55 Demerol; ap3 16:55 fedrazil; ap3 16:55 Vicodin; ap3 - PMHx: 16:55 Atrial Fib; Atrial Fib; CAD; CAD; CHF; Diabetes - IDDM; HTN; PROSTATE CA; ap3 - Immunization history:: Client reports receiving the 2nd dose of the Covid vaccine. - Social history:: Smoking status: Patient denies any tobacco usage or history of. Screenin:56 [facility] ED Fall Risk Assessment (Adult) History of falling in the last 3 months, ap3 including since admission No falls in past 3 months (0 pts). Abuse screen: Denies threats or abuse. Nutritional screening: No deficits noted. Tuberculosis screening: No symptoms or risk factors identified. Vital Signs: 16:53 BP 107 / 60; Pulse 52; Resp 18; Temp 98.2; Pulse Ox 98% on R/A; Weight 87.54 kg; ap3 ED Course: 16:40 Patient arrived in ED. im 16:40 Davon Norman PA is PHCP. cp 16:40 Diogo Jacobo DO is Attending Physician. cp 16:55 Triage completed. ap3 16:56 Arm band placed on right wrist. ap3 17:35 XRAY Ankle RIGHT 3 view In Process Unspecified. EDMS 18:20 Diogo Jacobo DO is Attending Physician. cp 18:42 Patient has correct armband on for positive identification. Provided Education on: ER cm10 process and procedures. . 18:42 No provider procedures requiring assistance completed. Patient did not have IV access cm10 during this emergency room visit. Dressings: Kerlix non-adherent dressing x 1 right lateral malleolus 4X4s. Administered Medications: 18:37 Drug: Bacitracin Topical Ointment (500 unit/g) 1 application Topical once Route: cm10 Topical; Site: affected area; Medication: 18:43 VIS not applicable for this client. cm10 Outcome: 18:31 Discharge ordered by MD. cp 18:43 Discharged to home ambulatory, cm10 18:43 Condition: good 18:43 Discharge instructions given to patient, Instructed on discharge instructions, follow up and referral plans. medication usage, Demonstrated understanding of instructions, follow-up care, medications, Prescriptions given X 1, 18:44 Patient left the ED. cm10 Signatures: Dispatcher [employer] EDMS Davon Norman PA PA cp Prokisch, Amanda, RN RN ap3 Juhi Kline Clarissa, RN RN cm10
[2023-01-06] MEDS ORDERED: BACI/NEOMYCIN/POLY OINT 15GM TOP ONE (18:34)
[2023-01-06 19:10] VITALS: BP 107/60; TEMP 98.2; O2SAT 98
== END 2023-01-06 18:44 | disposition home or self-care (01) ==
LOC: ER 16:35
DX: S91.011A Laceration without foreign body, right ankle, initial encounter (principal)

== ENCOUNTER 2023-01-22 14:31 | Emergency (ER) | payer BC ==
--- OUTSIDE RECORDS SUMMARY | 2023-01-22 14:38 | XMS REPORT | Continuity of Care Document ---
:1945 Author Organization [facility] t Address [address] [place] [place] [address] Care Team Providers Name Role Phone Sharpless Primary Care Physician Lorrie Greene Attending Clinician Unavailable LORRIE GILMAN Attending Clinician Unavailable LORRIE GILMAN Admitting Clinician Unavailable Payers Payer Name Policy Type Policy Number Effective Date Expiration Date S [facility] [employer] 6 [id number] [facility] Problems Condition Condition Condition Status Onset Resolution Last Treating Co mments Source Name Details Category Date Date Treatment Clinician Date HLD HLD Disease Recurre [facility] (hyperlipi (hyperlipi nce 824 Peg kes demia) demia) 00:00: Medical 00 Center Prostate Prostate Disease Recurre Overview: C [facility] cancer cancer nce 8-24 [facility]: g of this Medical 00 note Center might be different from the original. 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 00:00: Medica l (congestiv (congestiv 00 Ce nter e) and e) and diastolic diastolic (congestiv (congestiv e) heart e) heart failure failure Coronary Coronary Disease Recurre [facility] artery artery nce 10-14 [facility] disease disease 00:00: Medical 00 [place] [id number] Cancer of Problem Comm on prostate Spirit with - [facility] intermedia te [facility] recurrence Medica l risk Center (stage T2b-c or Lili 7 or PSA 10-20) [id number] Status Problem Common post Spirit cryoablati - [facility] on [facility] Allergies, Adverse Reactions, Alerts Allergy Allergy Status Severity Reaction(s) Onset Inactive Treating Comm ents Source Name Type Date Date Clinician Codeine Propensi Active [facility] ty to 10-14 [facility] adverse 00:00: Medical reaction 00 [place] s Hydrocod Propensi Active [facility] one-Acet ty to 10-14 [facility] aminophe adverse 00:00: Medical n reaction 00 [place] [facility] Social History Social Habit Start Date Stop Date Quantity Comments Source History of [facility] - Tobacco Use [facility] Tobacco use and 2016-11-13 2016-11-13 Smokeless tobacco CH I [facility] exposure 00:00:00 00:00:00 non-user [facility] Alcohol intake 2016-11-13 2016-11-13 [facility] non-drinker of [facility] nter alcohol (finding) Sex Assigned At [birth year] [facility] kes 00:00:00 00:00:00 [facility] Smoking Status Start Date Stop Date Source Never Smoker [facility] - [facility] Medications Ordered Filled Start Stop Current Ordering Indication Dosage Frequency Signature Comments Components Source Medication Medication Date Date Medication? Clinician (SIG) Name Name zinc Yes 220mg QD Take [address] sulfate 8-24 mg by Arjun (ZINCATE) 11:11: mouth Medical 220 (50) mg 52 daily. [place] capsule dexronin Yes 25ug QD Take [address] e (CYTOMEL) 8-24 mcg by [facility] 25 MCG 11:11: mouth Medical tablet 08 daily. [place] finasteride Yes 5mg QD Take [address] (PROSCAR) 5 8-24 by mouth Luke s mg tablet 11:11: daily. Medica l 08 [place] aspirin 81 Yes 81mg QD Take [address] MG EC 8-24 by mouth [facility] tablet 11:11: daily. Medical 08 [place] tamsulosin Yes .4mg QD Take 1 [facility] (FLOMAX) 8-18 capsule [facility] 0.4 mg Cp24 00:00: (0.4 mg Med ical 24 hr 00 total) by Center capsule mouth daily. insulin Yes To use 15 [facility] detemir 8-16 units q am [facility] (LEVEMIR 00:00: and 3 Medical FLEXTOUCH) 00 units q 9 Cent er 100 unit/mL pm. (3 mL) InPn injection insulin Yes To use via [facility] aspart 8-16 sliding [facility] (NOVOLOG 00:00: scale from Med ical FLEXPEN) 00 3 units to Cente r 100 unit/mL 20 units InPn three times a day. insulin pen Yes Use as [facility] needles (BD 8-16 directed. [place] ULTRA-FINE 00:00: Dispense Med ical SLICK) 4 mm 00 as Center x 32 G written, do not substitute . Brand medically necessary. To use 6 a day. apixaban Yes 5mg Q.5D Take [address] (ELIQUIS) 5 8-16 tablet (5 [place] mg Tab 00:00: mg total) Medica l tablet 00 by mouth 2 Center (two) times daily. DOBUTamine Yes 447ug/m Inject [address] (DOBUTREX) 8-16 in mcg/min [facility] 1,000 00:00: intravenou Medica l mg/250 mL 00 sly Center (4,000 continuous mcg/mL) . infusion famotidine Yes 20mg QD Take 1 [facility] (PEPCID) 20 8-16 tablet (20 Peg kes MG tablet 00:00: mg total) Med ical 00 by mouth Center nightly. Famotidine Famotidine No 1{table QD Famotidine 20 MG 20 MG t_at_be 20 MG dtime_a s_neede d} glipiZIDE - glipiZIDE - No glipiZIDE - Sotalol HCl Sotalol HCl No 1{table BID Sotalol 80 MG 80 MG t} HCl 80 MG Zinc 50 MG Zinc 50 MG No 1{table QD Zinc 50 MG t} Eliquis 2.5 Eliquis 2.5 No Eliquis MG MG 2.5 MG Bumetanide Bumetanide No Bumetanide 1 MG 1 MG 1 MG Finasteride Finasteride No 1{table QD Finasterid 5 MG 5 MG t} e 5 MG Cinnamon Cinnamon No Cinnamon 500 MG 500 MG 500 MG Rosuvastati Rosuvastati No 1{table Rosuvastat n Calcium n Calcium t} in Calcium 40 MG 40 MG 40 MG Tresiba 200 Tresiba 200 No Tresiba units/mL units/mL 200 units/mL Magnesium Magnesium No 1{capsu QD Magnesium 300 MG 300 MG le_with 300 MG _a_meal } Losartan Losartan No 1{table BID Losartan Potassium Potassium t} Potassium 50 MG 50 MG 50 MG Flomax 0.4 Flomax 0.4 No 1{capsu QD Flomax 0.4 MG MG le} MG Vitamin C Vitamin C No 1{table QD Vitamin C 1000 MG 1000 MG t} 1000 MG Famotidine Famotidine No 1{table QD Famotidine 20 MG 20 MG t_at_be 20 MG dtime_a s_neede d} glipiZIDE - glipiZIDE - No glipiZIDE - Sotalol HCl Sotalol HCl No 1{table BID Sotalol 80 MG 80 MG t} HCl 80 MG Zinc 50 MG Zinc 50 MG No 1{table QD Zinc 50 MG t} Eliquis 2.5 Eliquis 2.5 No Eliquis MG MG 2.5 MG Bumetanide Bumetanide No Bumetanide 1 MG 1 MG 1 MG Finasteride Finasteride No 1{table QD Finasterid 5 MG 5 MG t} e 5 MG Cinnamon Cinnamon No Cinnamon 500 MG 500 MG 500 MG Rosuvastati Rosuvastati No 1{table Rosuvastat n Calcium n Calcium t} in Calcium 40 MG 40 MG 40 MG Tresiba 200 Tresiba 200 No Tresiba units/mL units/mL 200 units/mL Magnesium Magnesium No 1{capsu QD Magnesium 300 MG 300 MG le_with 300 MG _a_meal } Losartan Losartan No 1{table BID Losartan Potassium Potassium t} Potassium 50 MG 50 MG 50 MG Flomax 0.4 Flomax 0.4 No 1{capsu QD Flomax 0.4 MG MG le} MG Vitamin C Vitamin C No 1{table QD Vitamin C 1000 MG 1000 MG t} 1000 MG Famotidine Famotidine No 1{table QD Famotidine 20 MG 20 MG t_at_be 20 MG dtime_a s_neede d} glipiZIDE - glipiZIDE - No glipiZIDE - Sotalol HCl Sotalol HCl No 1{table BID Sotalol 80 MG 80 MG t} HCl 80 MG Zinc 50 MG Zinc 50 MG No 1{table QD Zinc 50 MG t} Eliquis 2.5 Eliquis 2.5 No Eliquis MG MG 2.5 MG Bumetanide Bumetanide No Bumetanide 1 MG 1 MG 1 MG Finasteride Finasteride No 1{table QD Finasterid 5 MG 5 MG t} e 5 MG Cinnamon Cinnamon No Cinnamon 500 MG 500 MG 500 MG Rosuvastati Rosuvastati No 1{table Rosuvastat n Calcium n Calcium t} in Calcium 40 MG 40 MG 40 MG Tresiba 200 Tresiba 200 No Tresiba units/mL units/mL 200 units/mL Magnesium Magnesium No 1{capsu QD Magnesium 300 MG 300 MG le_with 300 MG _a_meal } Losartan Losartan No 1{table BID Losartan Potassium Potassium t} Potassium 50 MG 50 MG 50 MG Flomax 0.4 Flomax 0.4 No 1{capsu QD Flomax 0.4 MG MG le} MG Vitamin C Vitamin C No 1{table QD Vitamin C 1000 MG 1000 MG t} 1000 MG Sotalol HCl Sotalol HCl No 1{table BID Sotalol 80 MG 80 MG t} HCl 80 MG Losartan Losartan No 1{table Losartan Potassium Potassium t} Potassium 25 MG 25 MG 25 MG Cinnamon Cinnamon No Cinnamon 500 MG 500 MG 500 MG Eliquis 2.5 Eliquis 2.5 No Eliquis MG MG 2.5 MG Tresiba 200 Tresiba 200 No Tresiba units/mL units/mL 200 units/mL Flomax 0.4 Flomax 0.4 No 1{capsu QD Flomax 0.4 MG MG le} MG glipiZIDE - glipiZIDE - No glipiZIDE - Farxiga 5mg Farxiga 5mg No Farxiga 5mg Magnesium Magnesium No 1{capsu QD Magnesium 300 MG 300 MG le_with 300 MG _a_meal } Xarelto 20 Xarelto 20 No 1{table QD Xarelto 20 MG MG t_with_ MG food} Finasteride Finasteride No 1{table QD Finasterid 5 MG 5 MG t} e 5 MG Rosuvastati Rosuvastati No 1{table Rosuvastat n Calcium n Calcium t} in Calcium 40 MG 40 MG 40 MG Vitamin C Vitamin C No 1{table QD Vitamin C 1000 MG 1000 MG t} 1000 MG Famotidine Famotidine No 1{table QD Famotidine 20 MG 20 MG t_at_be 20 MG dtime_a s_neede d} Zinc 50 MG Zinc 50 MG No 1{table QD Zinc 50 MG t} Bumetanide Bumetanide No Bumetanide 1 MG 1 MG 1 MG Vital Signs Vital Name Observation Time Observation Value Comments Source height 2022-01-01 11:00:00 72 [in_i] [facility] weight 2022-01-01 11:00:00 204 [lb_av] [facility] temperature 2022-01-01 11:00:00 98.2 [degF] [facility] bmi 2022-01-01 11:00:00 27.66 kg/m2 [facility] oximetry 2022-01-01 11:00:00 97 % [facility] respiratory rate 2022-01-01 11:00:00 16 /min Comm on [facility] blood pressure 2022-01-01 11:00:00 145 mm[Hg] Common [facility] blood pressure 2022-01-01 11:00:00 61 mm[Hg] [facility] - diastolic [facility] height 2020-12-31 11:00:00 72 [in_i] [facility] weight 2020-12-31 11:00:00 195 [lb_av] [facility] temperature 2020-12-31 11:00:00 98.2 [degF] [facility] S [facility] bmi 2020-12-31 11:00:00 26.44 kg/m2 [facility] oximetry 2020-12-31 11:00:00 98 % [facility] blood pressure 2020-12-31 11:00:00 109 mm[Hg] Common [facility] - systolic [facility] blood pressure 2020-12-31 11:00:00 54 mm[Hg] Common [facility] - diastolic [facility] Procedures This patient has no known procedures. Encounters Start End Encounter Admission Attending Care Care Encounter Source Date/Time Date/Time Type Type Clinicians Facility Department ID 2021-11-20 Outpatient Lrorie Greene STLMLC STLMLC [id number] Common 10:29:01 [id number] [facility] 2021-09-26 Outpatient Lorrie Greene STLMLC STLMLC [id number] Common 09:06:01 [id number] [facility] 2021-04-17 Outpatient STLMLC STLMLC [id number] Common 13:00:48 [id number] [facility] 2021-04-17 Outpatient STLMLC STLMLC [id number] Common 12:04:30 [id number] [facility] 2022-01-01 2022-01-01 OFFICE STLMLC STLMLC [id number] Co mmon 00:00:00 00:00:00 VISIT [facility] LEVEL 2 [facility] 2021-09-26 2021-09-26 (TEL) STLMLC STLMLC [id number] Co mmon 00:00:00 00:00:00 [facility] 2021-02-12 2021-02-12 (TEL) STLMLC STLMLC [id number] Co mmon 00:00:00 00:00:00 Danny Daniel [facility] 2020-12-31 2020-12-31 [facility] [id number] Co mmon 00:00:00 00:00:00 VISIT Danny SADLER PT - DAREN LEVEL 2 [facility] 2020-02-02 2020-02-02 [facility] [id number] Common 00:00:00 00:00:00 [facility] Results Test Description Test Time Test Comments Results Result Comments Source B-TYPE NATRIURETIC FACTOR (BNP) 2016-11-13 13:04:00 Test Item Value Reference Range Interpretation Comme nts B-TYPE NATRIURETIC PEPTIDE (BEAKER) (test code = 700) 1327 pg/mL 0-100 H [id number] 12:58:00 Test Item Value Reference Range Interpretation Comments MAGNESIUM (BEAKER) (test code = 1.5 mg/dL 1.6-2.6 L 627) BASIC METABOLIC [id number] 12:58:00 Test Item Value Reference Range Interpretation Comments SODIUM (BEAKER) 138 meq/L 136-145 (test code = 381) POTASSIUM (BEAKER) 4.3 meq/L 3.5-5.1 (test code = 379) CHLORIDE (BEAKER) 99 meq/L 98-107 (test code = 382) CO2 (BEAKER) (test 32 meq/L 22-29 H code = 355) BLOOD UREA NITROGEN 18 mg/dL 7-21 (BEAKER) (test code = 354) CREATININE (BEAKER) 1.20 mg/dL 0.57-1.25 (test code = 358) GLUCOSE RANDOM 131 mg/dL 70-105 H (BEAKER) (test code = 652) CALCIUM (BEAKER) 8.6 mg/dL 8.4-10.2 (test code = 697) EGFR (BEAKER) (test 60 mL/min/1.73 ESTIMA MARIA DOLORES GFR IS code = 1092) sq m NOT ACCURATE CREATININE CLEARANCE IN PREDICTING GLOMERULAR FILTRATION RATE . ESTIMATED GFR I S NOT APPLICABLE FOR DIALYSIS PATIEN TS. POCT-GLUCOSE [id number] 13:01:00 Test Item Value Reference Range Interpretation Comments POC-GLUCOSE METER 210 mg/dL 70-110 H TESTED AT [facility] 67[address] (BEAKER) (test code = NERY De Jesus [place] 1538) [id number] POCT-GLUCOSE [id number] 08:40:00 Test Item Value Reference Range Interpretation Comments POC-GLUCOSE METER 150 mg/dL 70-110 H TESTED AT [facility] 67[address] (BEAKER) (test code = NERY De Jesus [place] 1538) [id number] BASIC METABOLIC [id number] 06:02:00 Test Item Value Reference Range Interpretation Comments SODIUM (BEAKER) 137 meq/L 136-145 (test code = 381) POTASSIUM (BEAKER) 4.0 meq/L 3.5-5.1 (test code = 379) CHLORIDE (BEAKER) 95 meq/L 98-107 L (test code = 382) CO2 (BEAKER) (test 33 meq/L 22-29 H code = 355) BLOOD UREA NITROGEN 39 mg/dL 7-21 H (BEAKER) (test code = 354) CREATININE (BEAKER) 1.26 mg/dL 0.57-1.25 H (test code = 358) GLUCOSE RANDOM 100 mg/dL 70-105 (BEAKER) (test code = 652) CALCIUM (BEAKER) 8.6 mg/dL 8.4-10.2 (test code = 697) EGFR (BEAKER) (test 57 mL/min/1.73 ESTIMA MARIA DOLORES GFR IS code = 1092) sq m NOT ACCURATE CREATININE CLEARANCE IN PREDICTING GLOMERULAR FILTRATION RATE . ESTIMATED GFR I S NOT APPLICABLE FOR DIALYSIS PATIEN TS. CBC W/PLT COUNT & AUTO [id number] 05:58:00 Test Item Value Reference Range Interpretation Comments WHITE BLOOD CELL COUNT (BEAKER) 8.4 K/ L 3.5-10.5 (test code = 775) RED BLOOD CELL COUNT (BEAKER) 3.04 M/ L 4.63-6.08 L (test code = 761) HEMOGLOBIN (BEAKER) (test code = 8.6 GM/DL 13.7-17.5 L 410) HEMATOCRIT (BEAKER) (test code = 27.3 % 40.1-51.0 L 411) MEAN CORPUSCULAR VOLUME (BEAKER) 89.8 fL 79.0-92.2 (test code = 753) MEAN CORPUSCULAR HEMOGLOBIN 28.3 pg 25.7-32.2 (BEAKER) (test code = 751) MEAN CORPUSCULAR HEMOGLOBIN CONC 31.5 GM/DL 32.3-36.5 L (BEAKER) (test code = 752) RED CELL DISTRIBUTION WIDTH 15.9 % 11.6-14.4 H (BEAKER) (test code = 412) PLATELET COUNT (BEAKER) (test 332 K/CU MM 150-450 code = 756) MEAN PLATELET VOLUME (BEAKER) 8.7 fL 9.4-12.4 L (test code = 754) NUCLEATED RED BLOOD CELLS 0 /100 WBC 0-0 (BEAKER) (test code = 413) NEUTROPHILS RELATIVE PERCENT 74 % (BEAKER) (test code = 429) LYMPHOCYTES RELATIVE PERCENT 8 % (BEAKER) (test code = 430) MONOCYTES RELATIVE PERCENT 13 % (BEAKER) (test code = 431) EOSINOPHILS RELATIVE PERCENT 4 % (BEAKER) (test code = 432) BASOPHILS RELATIVE PERCENT 1 % (BEAKER) (test code = 437) NEUTROPHILS ABSOLUTE COUNT 6.18 K/ L 1.78-5.38 H (BEAKER) (test code = 670) LYMPHOCYTES ABSOLUTE COUNT 0.70 K/ L 1.32-3.57 L (BEAKER) (test code = 414) MONOCYTES ABSOLUTE COUNT (BEAKER) 1.07 K/ L 0.30-0.82 H (test code = 415) EOSINOPHILS ABSOLUTE COUNT 0.36 K/ L 0.04-0.54 (BEAKER) (test code = 416) BASOPHILS ABSOLUTE COUNT (BEAKER) 0.04 K/ L 0.01-0.08 (test code = 417) IMMATURE GRANULOCYTES-RELATIVE 1 % 0-1 PERCENT (BEAKER) (test code = 2801) POCT-GLUCOSE [id number] 21:47:00 Test Item Value Reference Range Interpretation Comments POC-GLUCOSE METER 98 mg/dL 70-110 [facility] [place] [address] [facility] [address]) POCT-GLUCOSE [id number] 17:12:00 Test Item Value Reference Range Interpretation Comments POC-GLUCOSE METER 173 mg/dL 70-110 H TESTED AT [facility] 6720 (BEAKER) (test code = [facility] 1538) [id number] POCT-GLUCOSE [id number] 12:15:00 Test Item Value Reference Range Interpretation Comments POC-GLUCOSE METER 202 mg/dL 70-110 H TESTED AT [facility] 67[address] ([facility]) (test code = NERY De Jesus [place] 15[address]) [address] URINE [id number] 10:38:00 Test Item Value Reference Range Interpretation Comments CULTURE (BEAKER) (test A >100, 000 col/mL Gerri code = 1095) albicans GRAM STAIN RESULT <1+ WBCs (BEAKER) (test code = 1123) GRAM STAIN RESULT 3+ yeast (BEAKER) (test code = 02335) POCT-GLUCOSE [id number] 07:51:00 Test Item Value Reference Range Interpretation Comments POC-GLUCOSE METER 165 mg/dL 70-110 H TESTED AT [facility] 67[address] ([facility]) (test code = NERY De Jesus [facility] 1538) [address] BASIC METABOLIC [id number] 07:02:00 Test Item Value Reference Range Interpretation Comments SODIUM (BEAKER) 134 meq/L 136-145 L (test code = 381) POTASSIUM (BEAKER) 4.6 meq/L 3.5-5.1 (test code = 379) CHLORIDE (BEAKER) 92 meq/L 98-107 L (test code = 382) CO2 (BEAKER) (test 34 meq/L 22-29 H code = 355) BLOOD UREA NITROGEN 39 mg/dL 7-21 H (BEAKER) (test code = 354) CREATININE (BEAKER) 1.29 mg/dL 0.57-1.25 H (test code = 358) GLUCOSE RANDOM 134 mg/dL 70-105 H (BEAKER) (test code = 652) CALCIUM (BEAKER) 8.6 mg/dL 8.4-10.2 (test code = 697) EGFR (BEAKER) (test 55 mL/min/1.73 ESTIMA MARIA DOLORES GFR IS code = 1092) sq m NOT ACCURATE CREATININE CLEARANCE IN PREDICTING GLOMERULAR FILTRATION RATE . ESTIMATED GFR I S NOT APPLICABLE FOR DIALYSIS PATIEN TS. CBC W/PLT COUNT & AUTO [id number] 07:00:00 Test Item Value Reference Range Interpretation Comments WHITE BLOOD CELL COUNT (BEAKER) 9.2 K/ L 3.5-10.5 (test code = 775) RED BLOOD CELL COUNT (BEAKER) 3.20 M/ L 4.63-6.08 L (test code = 761) HEMOGLOBIN (BEAKER) (test code = 9.0 GM/DL 13.7-17.5 L 410) HEMATOCRIT (BEAKER) (test code = 28.7 % 40.1-51.0 L 411) MEAN CORPUSCULAR VOLUME (BEAKER) 89.7 fL 79.0-92.2 (test code = 753) MEAN CORPUSCULAR HEMOGLOBIN 28.1 pg 25.7-32.2 (BEAKER) (test code = 751) MEAN CORPUSCULAR HEMOGLOBIN CONC 31.4 GM/DL 32.3-36.5 L (BEAKER) (test code = 752) RED CELL DISTRIBUTION WIDTH 15.9 % 11.6-14.4 H (BEAKER) (test code = 412) PLATELET COUNT (BEAKER) (test 355 K/CU MM 150-450 code = 756) MEAN PLATELET VOLUME (BEAKER) 8.7 fL 9.4-12.4 L (test code = 754) NUCLEATED RED BLOOD CELLS 0 /100 WBC 0-0 (BEAKER) (test code = 413) NEUTROPHILS RELATIVE PERCENT 76 % (BEAKER) (test code = 429) LYMPHOCYTES RELATIVE PERCENT 6 % (BEAKER) (test code = 430) MONOCYTES RELATIVE PERCENT 13 % (BEAKER) (test code = 431) EOSINOPHILS RELATIVE PERCENT 4 % (BEAKER) (test code = 432) BASOPHILS RELATIVE PERCENT 0 % (BEAKER) (test code = 437) NEUTROPHILS ABSOLUTE COUNT 6.93 K/ L 1.78-5.38 H (BEAKER) (test code = 670) LYMPHOCYTES ABSOLUTE COUNT 0.54 K/ L 1.32-3.57 L (BEAKER) (test code = 414) MONOCYTES ABSOLUTE COUNT (BEAKER) 1.23 K/ L 0.30-0.82 H (test code = 415) EOSINOPHILS ABSOLUTE COUNT 0.37 K/ L 0.04-0.54 (BEAKER) (test code = 416) BASOPHILS ABSOLUTE COUNT (BEAKER) 0.04 K/ L 0.01-0.08 (test code = 417) IMMATURE GRANULOCYTES-RELATIVE 0 % 0-1 PERCENT (BEAKER) (test code = 2801) OXYGEN SATURATION, [id number] 06:11:00 Test Item Value Reference Range Interpretation Comments O2 SATURATION (MEASURED) (BEAKER) 95.5 % (test code = 1455) Please get mixed venous blood gas from the PICC line portPOCT-GLUCOSE METER 2016-11-05 22:09:00 Test Item Value Reference Range Interpretation Comments POC-GLUCOSE METER 153 mg/dL 70-110 H TESTED AT [place] [address] ([facility]) (test code = NERY De Jesus [facility] 1538) [address] POCT-GLUCOSE [id number] 21:01:00 Test Item Value Reference Range Interpretation Comments POC-GLUCOSE METER 61 mg/dL 70-110 L Notified Neal Harmon MD/TESTED AT ([facility]) (test code = [place] [address] [facility] [address] POCT-GLUCOSE [id number] 17:03:00 Test Item Value Reference Range Interpretation Comments POC-GLUCOSE METER 87 mg/dL 70-110 TESTED AT [place] [address] ([facility]) (test code = NERY De Jesus [facility] [address]) POCT-GLUCOSE [id number] 16:42:00 Test Item Value Reference Range Interpretation Comments POC-GLUCOSE METER 62 mg/dL 70-110 L Notified Neal Harmon MD/TESTED AT ([facility]) (test code = [address] [address]) [facility] [address] 0 POCT-GLUCOSE [id number] 11:42:00 Test Item Value Reference Range Interpretation Comments POC-GLUCOSE METER 125 mg/dL 70-110 H TESTED AT [place] [address] ([facility]) (test code = NERY De Jesus [facility] 1538) [id number] POCT-GLUCOSE [id number] 07:52:00 Test Item Value Reference Range Interpretation Comments POC-GLUCOSE METER 150 mg/dL 70-110 H TESTED AT [place] [address] ([facility]) (test code = NERY De Jesus [facility] 1538) [address] OXYGEN SATURATION, [id number] 07:30:00 Test Item Value Reference Range Interpretation Comments O2 SATURATION (MEASURED) ([facility]) 96.3 % (test code = 1455) Please get mixed venous blood gas from the PICC line portCBC W/PLT COUNT & AUTO [id number] 06:47:00 Test Item Value Reference Range Interpretation Comments WHITE BLOOD CELL COUNT ([facility]) 8.4 K/ L 3.5-10.5 (test code = 775) RED BLOOD CELL COUNT (BEAKER) 3.01 M/ L 4.63-6.08 L (test code = 761) HEMOGLOBIN (BEAKER) (test code = 8.5 GM/DL 13.7-17.5 L 410) HEMATOCRIT (BEAKER) (test code = 26.5 % 40.1-51.0 L 411) MEAN CORPUSCULAR VOLUME (BEAKER) 88.0 fL 79.0-92.2 (test code = 753) MEAN CORPUSCULAR HEMOGLOBIN 28.2 pg 25.7-32.2 (BEAKER) (test code = 751) MEAN CORPUSCULAR HEMOGLOBIN CONC 32.1 GM/DL 32.3-36.5 L (BEAKER) (test code = 752) RED CELL DISTRIBUTION WIDTH 15.9 % 11.6-14.4 H (BEAKER) (test code = 412) PLATELET COUNT (BEAKER) (test 354 K/CU MM 150-450 code = 756) MEAN PLATELET VOLUME (BEAKER) 8.3 fL 9.4-12.4 L (test code = 754) NUCLEATED RED BLOOD CELLS 0 /100 WBC 0-0 (BEAKER) (test code = 413) NEUTROPHILS RELATIVE PERCENT 74 % (BEAKER) (test code = 429) LYMPHOCYTES RELATIVE PERCENT 7 % (BEAKER) (test code = 430) MONOCYTES RELATIVE PERCENT 13 % (BEAKER) (test code = 431) EOSINOPHILS RELATIVE PERCENT 4 % (BEAKER) (test code = 432) BASOPHILS RELATIVE PERCENT 1 % (BEAKER) (test code = 437) NEUTROPHILS ABSOLUTE COUNT 6.22 K/ L 1.78-5.38 H (BEAKER) (test code = 670) LYMPHOCYTES ABSOLUTE COUNT 0.58 K/ L 1.32-3.57 L (BEAKER) (test code = 414) MONOCYTES ABSOLUTE COUNT (BEAKER) 1.10 K/ L 0.30-0.82 H (test code = 415) EOSINOPHILS ABSOLUTE COUNT 0.37 K/ L 0.04-0.54 (BEAKER) (test code = 416) BASOPHILS ABSOLUTE COUNT (BEAKER) 0.06 K/ L 0.01-0.08 (test code = 417) IMMATURE GRANULOCYTES-RELATIVE 0 % 0-1 PERCENT (BEAKER) (test code = 2801) HEPATIC FUNCTION [id number] 06:41:00 Test Item Value Reference Range Interpretation Comments TOTAL PROTEIN (BEAKER) (test code = 5.6 gm/dL 6.0-8.3 L 770) ALBUMIN (BEAKER) (test code = 1145) 2.6 g/dL 3.5-5.0 L BILIRUBIN TOTAL (BEAKER) (test code 0.9 mg/dL 0.2-1.2 = 377) BILIRUBIN DIRECT (BEAKER) (test 0.6 mg/dL 0.1-0.5 H code = 706) ALKALINE PHOSPHATASE (BEAKER) (test 105 U/L 40-150 code = 346) AST (SGOT) (BEAKER) (test code = 28 U/L 5-34 353) ALT (SGPT) (BEAKER) (test code = 29 U/L 6-55 347) BASIC METABOLIC [id number] 06:41:00 Test Item Value Reference Range Interpretation Comments SODIUM (BEAKER) 135 meq/L 136-145 L (test code = 381) POTASSIUM (BEAKER) 3.8 meq/L 3.5-5.1 (test code = 379) CHLORIDE (BEAKER) 94 meq/L 98-107 L (test code = 382) CO2 (BEAKER) (test 34 meq/L 22-29 H code = 355) BLOOD UREA NITROGEN 41 mg/dL 7-21 H (BEAKER) (test code = 354) CREATININE (BEAKER) 1.10 mg/dL 0.57-1.25 (test code = 358) GLUCOSE RANDOM 125 mg/dL 70-105 H (BEAKER) (test code = 652) CALCIUM (BEAKER) 8.3 mg/dL 8.4-10.2 L (test code = 697) EGFR (BEAKER) (test 66 mL/min/1.73 ESTIMA MARIA DOLORES GFR IS code = 1092) sq m NOT ACCURATE CREATININE CLEARANCE IN PREDICTING GLOMERULAR FILTRATION RATE . ESTIMATED GFR I S NOT APPLICABLE FOR DIALYSIS PATIEN TS. POCT-GLUCOSE [id number] 21:00:00 Test Item Value Reference Range Interpretation Comments POC-GLUCOSE METER 169 mg/dL 70-110 H TESTED AT [facility] 6720 (BEAKER) (test code = NERY [place] 5[address]) [address] POCT-GLUCOSE [id number] 19:37:00 Test Item Value Reference Range Interpretation Comments POC-GLUCOSE METER 114 mg/dL 70-110 H TESTED AT [facility] 6720 (BEAKER) (test code = NERY De Jesus [place] 1538) [address] URINALYSIS W/ [id number] 19:32:00 Test Item Value Reference Range Interpretation Comments COLOR (BEAKER) (test code = 470) Light Yellow CLARITY (BEAKER) (test code = Clear 469) SPECIFIC GRAVITY UA (BEAKER) 1.006 1.001-1.035 (test code = 468) PH UA (BEAKER) (test code = 467) 5.0 5.0-8.0 PROTEIN UA (BEAKER) (test code = Negative Negative 464) GLUCOSE UA (BEAKER) (test code = Negative Negative 365) KETONES UA (BEAKER) (test code = Negative Negative 371) BILIRUBIN UA (BEAKER) (test code Negative Negative = 462) BLOOD UA (BEAKER) (test code = Small Negative A 461) NITRITE UA (BEAKER) (test code = Negative Negative 465) LEUKOCYTE ESTERASE UA (BEAKER) Large Negative A (test code = 466) UROBILINOGEN UA (BEAKER) (test 0.2 mg/dL 0.2-1.0 code = 463) RBC UA (BEAKER) (test code = 5 /HPF 519) WBC UA (BEAKER) (test code = 46 /HPF 520) SQUAMOUS EPITHELIAL (BEAKER) < /HPF (test code = 516) HYALINE CASTS (BEAKER) (test 3 /LPF code = 514) YEAST (BEAKER) (test code = Few 9255) SOURCE(BEAKER) (test code = Urine, Chakraborty 3717) POCT-GLUCOSE [id number] 17:51:00 Test Item Value Reference Range Interpretation Comments POC-GLUCOSE METER 76 mg/dL 70-110 TESTED AT [facility] 6720 (BEAKER) (test code = [place] [address] 1538) BASIC METABOLIC [id number] 16:25:00 Test Item Value Reference Range Interpretation Comments SODIUM (BEAKER) 136 meq/L 136-145 (test code = 381) POTASSIUM (BEAKER) 3.6 meq/L 3.5-5.1 (test code = 379) CHLORIDE (BEAKER) 93 meq/L 98-107 L (test code = 382) CO2 (BEAKER) (test 36 meq/L 22-29 H code = 355) BLOOD UREA NITROGEN 40 mg/dL 7-21 H (BEAKER) (test code = 354) CREATININE (BEAKER) 1.26 mg/dL 0.57-1.25 H (test code = 358) GLUCOSE RANDOM 63 mg/dL 70-105 L (AKER) (test code = 652) CALCIUM (BEAKER) 8.5 mg/dL 8.4-10.2 (test code = 697) EGFR (BEAKER) (test 57 mL/min/1.73 ESTIMA MARIA DOLORES GFR IS code = 1092) sq m NOT ACCURATE CREATININE CLEARANCE IN PREDICTING GLOMERULAR FILTRATION RATE . ESTIMATED GFR I S NOT APPLICABLE FOR DIALYSIS PATIEN TS. OXYGEN SATURATION, [id number] 15:57:00 Test Item Value Reference Range Interpretation Comments O2 SATURATION (MEASURED) ([facility]) 94.9 % (test code = 1455) Please get mixed venous blood gas from the PICC line portPOCT-GLUCOSE METER 2016-11-04 12:34:00 Test Item Value Reference Range Interpretation Comments POC-GLUCOSE METER 183 mg/dL 70-110 H TESTED AT [place] [address] ([facility]) (test code = NERY De Jesus [place] 1538) [address] POCT-GLUCOSE [id number] 09:04:00 Test Item Value Reference Range Interpretation Comments POC-GLUCOSE METER 149 mg/dL 70-110 H TESTED AT [place] [address] ([facility]) (test code = NERY De Jesus [place] 1538) [address] POCT-GLUCOSE [id number] 21:28:00 Test Item Value Reference Range Interpretation Comments POC-GLUCOSE METER 145 mg/dL 70-110 H TESTED AT [place] [address] ([facility]) (test code = NERY De Jesus [place] 1538) [address] POCT-GLUCOSE [id number] 19:45:00 Test Item Value Reference Range Interpretation Comments POC-GLUCOSE METER 36 mg/dL 70-110 LL Notified Neal Haromn MD/TESTED AT ([facility]) (test code = [place] [address] [place] 1538) [place] [address] POCT-GLUCOSE [id number] 16:49:00 Test Item Value Reference Range Interpretation Comments POC-GLUCOSE METER 116 mg/dL 70-110 H TESTED AT [facility] 67 (BEAKER) (test code = NERY De Jesus [place] 1538) [address] POCT-GLUCOSE [id number] 12:09:00 Test Item Value Reference Range Interpretation Comments POC-GLUCOSE METER 197 mg/dL 70-110 H TESTED AT [place] [address] (BEAKER) (test code = [facility] Neal [place] 1538) [address] OXYGEN SATURATION, [id number] 08:41:00 Test Item Value Reference Range Interpretation Comments O2 SATURATION (MEASURED) (BEAKER) 68.6 % (test code = 1455) POCT-GLUCOSE [id number] 07:39:00 Test Item Value Reference Range Interpretation Comments POC-GLUCOSE METER 158 mg/dL 70-110 H [facility] [place] [address] [facility] (test code = [facility] Neal [facility] 1538) [address] [id number] 06:59:00 Test Item Value Reference Range Interpretation Comments MAGNESIUM (BEAKER) (test code = 2.3 mg/dL 1.6-2.6 627) BASIC METABOLIC [id number] 06:59:00 Test Item Value Reference Range Interpretation Comments SODIUM (BEAKER) 132 meq/L 136-145 L (test code = 381) POTASSIUM (BEAKER) 3.6 meq/L 3.5-5.1 (test code = 379) CHLORIDE (BEAKER) 90 meq/L 98-107 L (test code = 382) CO2 (BEAKER) (test 34 meq/L 22-29 H code = 355) BLOOD UREA NITROGEN 42 mg/dL 7-21 H (BEAKER) (test code = 354) CREATININE (BEAKER) 1.42 mg/dL 0.57-1.25 H (test code = 358) GLUCOSE RANDOM 123 mg/dL 70-105 H (BEAKER) (test code = 652) CALCIUM (BEAKER) 8.1 mg/dL 8.4-10.2 L (test code = 697) EGFR (BEAKER) (test 49 mL/min/1.73 ESTIMA MARIA DOLORES GFR IS code = 1092) sq m NOT ACCURATE CREATININE CLEARANCE IN PREDICTING GLOMERULAR FILTRATION RATE . ESTIMATED GFR I S NOT APPLICABLE FOR DIALYSIS PATIEN TS. CBC W/PLT COUNT & AUTO [id number] 05:36:00 Test Item Value Reference Range Interpretation Comments WHITE BLOOD CELL COUNT (BEAKER) 10.5 K/ L 3.5-10.5 (test code = 775) RED BLOOD CELL COUNT (BEAKER) 2.95 M/ L 4.63-6.08 L (test code = 761) HEMOGLOBIN (BEAKER) (test code = 8.3 GM/DL 13.7-17.5 L 410) HEMATOCRIT (BEAKER) (test code = 25.9 % 40.1-51.0 L 411) MEAN CORPUSCULAR VOLUME (BEAKER) 87.8 fL 79.0-92.2 (test code = 753) MEAN CORPUSCULAR HEMOGLOBIN 28.1 pg 25.7-32.2 (BEAKER) (test code = 751) MEAN CORPUSCULAR HEMOGLOBIN CONC 32.0 GM/DL 32.3-36.5 L (BEAKER) (test code = 752) RED CELL DISTRIBUTION WIDTH 15.9 % 11.6-14.4 H (BEAKER) (test code = 412) PLATELET COUNT (BEAKER) (test 352 K/CU MM 150-450 code = 756) MEAN PLATELET VOLUME (BEAKER) 8.4 fL 9.4-12.4 L (test code = 754) NUCLEATED RED BLOOD CELLS 0 /100 WBC 0-0 (BEAKER) (test code = 413) NEUTROPHILS RELATIVE PERCENT 77 % (BEAKER) (test code = 429) LYMPHOCYTES RELATIVE PERCENT 5 % (BEAKER) (test code = 430) MONOCYTES RELATIVE PERCENT 13 % (BEAKER) (test code = 431) EOSINOPHILS RELATIVE PERCENT 4 % (BEAKER) (test code = 432) BASOPHILS RELATIVE PERCENT 0 % (BEAKER) (test code = 437) NEUTROPHILS ABSOLUTE COUNT 8.01 K/ L 1.78-5.38 H (BEAKER) (test code = 670) LYMPHOCYTES ABSOLUTE COUNT 0.57 K/ L 1.32-3.57 L (BEAKER) (test code = 414) MONOCYTES ABSOLUTE COUNT (BEAKER) 1.33 K/ L 0.30-0.82 H (test code = 415) EOSINOPHILS ABSOLUTE COUNT 0.44 K/ L 0.04-0.54 (BEAKER) (test code = 416) BASOPHILS ABSOLUTE COUNT (BEAKER) 0.04 K/ L 0.01-0.08 (test code = 417) IMMATURE GRANULOCYTES-RELATIVE 1 % 0-1 PERCENT ([facility]) (test code = 2801) POCT-GLUCOSE [id number] 01:47:00 Test Item Value Reference Range Interpretation Comments POC-GLUCOSE METER 133 mg/dL 70-110 H TESTED AT [place] [address] ([facility]) (test code = NERY De [place] 1538) [address] POCT-GLUCOSE [id number] 22:09:00 Test Item Value Reference Range Interpretation Comments POC-GLUCOSE METER 94 mg/dL 70-110 TESTED AT [place] [address] ([facility]) (test code = [place] [address] 1538) POCT-GLUCOSE [id number] 20:22:00 Test Item Value Reference Range Interpretation Comments POC-GLUCOSE METER 70 mg/dL 70-110 TESTED AT [place] [address] ([facility]) (test code = NERY De Jesus [facility] [address]) POCT-GLUCOSE [id number] 20:21:00 Test Item Value Reference Range Interpretation Comments POC-GLUCOSE METER 93 mg/dL 70-110 TESTED AT [place] [address] ([facility]) (test code = NERY De Jesus [facility] [address]) POCT-GLUCOSE [id number] 20:17:00 Test Item Value Reference Range Interpretation Comments POC-GLUCOSE METER 222 mg/dL 70-110 H TESTED AT [place] [address] ([facility]) (test code = NERY De Jesus [place] 1538) [address] POCT-GLUCOSE [id number] 20:05:00 Test Item Value Reference Range Interpretation Comments POC-GLUCOSE METER 142 mg/dL 70-110 H TESTED AT [place] [address] ([facility]) (test code = NERY De Jesus [place] 1538) [address] POCT-GLUCOSE [id number] 20:01:00 Test Item Value Reference Range Interpretation Comments POC-GLUCOSE METER 80 mg/dL 70-110 TESTED AT [place] [address] ([facility]) (test code = [place] [address]38) POCT-GLUCOSE [id number] 19:56:00 Test Item Value Reference Range Interpretation Comments POC-GLUCOSE METER 151 mg/dL 70-110 H TESTED AT [place] [address] ([facility]) (test code = NERY De Jesus [facility] 1538) [address] [id number] 15:40:00 Test Item Value Reference Range Interpretation Comments MAGNESIUM (BEAKER) (test code = 1.9 mg/dL 1.6-2.6 627) [id number] 15:40:00 Test Item Value Reference Range Interpretation Comments POTASSIUM (BEAKER) (test code = 3.6 meq/L 3.5-5.1 379) OXYGEN SATURATION, [id number] 12:59:00 Test Item Value Reference Range Interpretation Comments O2 SATURATION (MEASURED) (BEAKER) 68.7 % (test code = 1455) OXYGEN SATURATION, [id number] 06:27:00 Test Item Value Reference Range Interpretation Comments O2 SATURATION (MEASURED) (BEAKER) 68.9 % (test code = 1455) [id number] 19:45:00 Test Item Value Reference Range Interpretation Comments MAGNESIUM (BEAKER) (test code = 2.1 mg/dL 1.6-2.6 627) [id number] 19:45:00 Test Item Value Reference Range Interpretation Comments POTASSIUM (BEAKER) (test code = 4.1 meq/L 3.5-5.1 379) OXYGEN SATURATION, [id number] 19:12:00 Test Item Value Reference Range Interpretation Comments O2 SATURATION (MEASURED) (BEAKER) 55.0 % (test code = 1455) POCT-GLUCOSE [id number] 11:52:00 Test Item Value Reference Range Interpretation Comments POC-GLUCOSE METER 237 mg/dL 70-110 H TESTED AT [facility] 6720 (BEAKER) (test code = [place] 15[address]) [address] POCT-GLUCOSE [id number] 07:46:00 Test Item Value Reference Range Interpretation Comments POC-GLUCOSE METER 155 mg/dL 70-110 H TESTED AT [facility] 6720 (BEAKER) (test code = NERY De Jesus [facility] 1538) [address] [id number] 04:52:00 Test Item Value Reference Range Interpretation Comments MAGNESIUM (BEAKER) (test code = 1.7 mg/dL 1.6-2.6 627) BASIC METABOLIC [id number] 04:52:00 Test Item Value Reference Range Interpretation Comments SODIUM (BEAKER) 132 meq/L 136-145 L (test code = 381) POTASSIUM (BEAKER) 3.8 meq/L 3.5-5.1 (test code = 379) CHLORIDE (BEAKER) 96 meq/L 98-107 L (test code = 382) CO2 (BEAKER) (test 30 meq/L 22-29 H code = 355) BLOOD UREA NITROGEN 35 mg/dL 7-21 H (BEAKER) (test code = 354) CREATININE (BEAKER) 0.96 mg/dL 0.57-1.25 (test code = 358) GLUCOSE RANDOM 141 mg/dL 70-105 H (BEAKER) (test code = 652) CALCIUM (BEAKER) 8.3 mg/dL 8.4-10.2 L (test code = 697) EGFR (BEAKER) (test 78 mL/min/1.73 ESTIMA MARIA DOLORES GFR IS code = 1092) sq m NOT ACCURATE CREATININE CLEARANCE IN PREDICTING GLOMERULAR FILTRATION RATE . ESTIMATED GFR I S NOT APPLICABLE FOR DIALYSIS PATIEN TS. CBC W/PLT COUNT & AUTO [id number] 04:43:00 Test Item Value Reference Range Interpretation Comments WHITE BLOOD CELL COUNT (BEAKER) 11.5 K/ L 3.5-10.5 H (test code = 775) RED BLOOD CELL COUNT (BEAKER) 3.06 M/ L 4.63-6.08 L (test code = 761) HEMOGLOBIN (BEAKER) (test code = 8.7 GM/DL 13.7-17.5 L 410) HEMATOCRIT (BEAKER) (test code = 26.8 % 40.1-51.0 L 411) MEAN CORPUSCULAR VOLUME (BEAKER) 87.6 fL 79.0-92.2 (test code = 753) MEAN CORPUSCULAR HEMOGLOBIN 28.4 pg 25.7-32.2 (BEAKER) (test code = 751) MEAN CORPUSCULAR HEMOGLOBIN CONC 32.5 GM/DL 32.3-36.5 (BEAKER) (test code = 752) RED CELL DISTRIBUTION WIDTH 15.9 % 11.6-14.4 H (BEAKER) (test code = 412) PLATELET COUNT (BEAKER) (test 353 K/CU MM 150-450 code = 756) MEAN PLATELET VOLUME (BEAKER) 8.2 fL 9.4-12.4 L (test code = 754) NUCLEATED RED BLOOD CELLS 0 /100 WBC 0-0 (BEAKER) (test code = 413) NEUTROPHILS RELATIVE PERCENT 80 % (BEAKER) (test code = 429) LYMPHOCYTES RELATIVE PERCENT 5 % (BEAKER) (test code = 430) MONOCYTES RELATIVE PERCENT 11 % (BEAKER) (test code = 431) EOSINOPHILS RELATIVE PERCENT 4 % (BEAKER) (test code = 432) BASOPHILS RELATIVE PERCENT 0 % (BEAKER) (test code = 437) NEUTROPHILS ABSOLUTE COUNT 9.17 K/ L 1.78-5.38 H (BEAKER) (test code = 670) LYMPHOCYTES ABSOLUTE COUNT 0.52 K/ L 1.32-3.57 L (BEAKER) (test code = 414) MONOCYTES ABSOLUTE COUNT (BEAKER) 1.30 K/ L 0.30-0.82 H (test code = 415) EOSINOPHILS ABSOLUTE COUNT 0.43 K/ L 0.04-0.54 (BEAKER) (test code = 416) BASOPHILS ABSOLUTE COUNT (BEAKER) 0.04 K/ L 0.01-0.08 (test code = 417) IMMATURE GRANULOCYTES-RELATIVE 1 % 0-1 PERCENT (BEAKER) (test code = 2801) POCT-GLUCOSE [id number] 22:55:00 Test Item Value Reference Range Interpretation Comments POC-GLUCOSE METER 154 mg/dL 70-110 H TESTED AT [place] [address] ([facility]) (test code = [facility] 1538) [address] POCT-GLUCOSE [id number] 17:41:00 Test Item Value Reference Range Interpretation Comments POC-GLUCOSE METER 106 mg/dL 70-110 TESTED AT [place] [address] ([facility]) (test code = [facility] 1538) [address] POCT-GLUCOSE [id number] 12:37:00 Test Item Value Reference Range Interpretation Comments POC-GLUCOSE METER 170 mg/dL 70-110 H TESTED AT [place] [address] ([facility]) (test code = [facility] 1538) [address] VITAMIN D, [id number] 10:42:00 Test Item Value Reference Range Interpretation Comments VITAMIN D 25-OH ([facility]) (test 16.1 ng/mL 13.0-47.8 code = 2764) POCT-GLUCOSE [id number] 06:35:00 Test Item Value Reference Range Interpretation Comments POC-GLUCOSE METER 137 mg/dL 70-110 H TESTED AT [facility] 6720 (BEAKER) (test code = [place] 1538) [address] OXYGEN SATURATION, [id number] 05:20:00 Test Item Value Reference Range Interpretation Comments O2 SATURATION (MEASURED) (BEAKER) 63.0 % (test code = 1455) BASIC METABOLIC [id number] 04:35:00 Test Item Value Reference Range Interpretation Comments SODIUM (BEAKER) 132 meq/L 136-145 L (test code = 381) POTASSIUM (BEAKER) 3.8 meq/L 3.5-5.1 (test code = 379) CHLORIDE (BEAKER) 96 meq/L 98-107 L (test code = 382) CO2 (BEAKER) (test 29 meq/L 22-29 code = 355) BLOOD UREA NITROGEN 37 mg/dL 7-21 H (BEAKER) (test code = 354) CREATININE (BEAKER) 1.16 mg/dL 0.57-1.25 (test code = 358) GLUCOSE RANDOM 92 mg/dL 70-105 (BEAKER) (test code = 652) CALCIUM (BEAKER) 8.0 mg/dL 8.4-10.2 L (test code = 697) EGFR (BEAKER) (test 62 mL/min/1.73 ESTIMA MARIA DOLORES GFR IS code = 1092) sq m NOT ACCURATE CREATININE CLEARANCE IN PREDICTING GLOMERULAR FILTRATION RATE . ESTIMATED GFR I S NOT APPLICABLE FOR DIALYSIS PATIEN TS. CBC W/PLT COUNT & AUTO [id number] 04:32:00 Test Item Value Reference Range Interpretation Comments WHITE BLOOD CELL COUNT (BEAKER) 12.1 K/ L 3.5-10.5 H (test code = 775) RED BLOOD CELL COUNT (BEAKER) 2.99 M/ L 4.63-6.08 L (test code = 761) HEMOGLOBIN (BEAKER) (test code = 8.4 GM/DL 13.7-17.5 L 410) HEMATOCRIT (BEAKER) (test code = 26.1 % 40.1-51.0 L 411) MEAN CORPUSCULAR VOLUME (BEAKER) 87.3 fL 79.0-92.2 (test code = 753) MEAN CORPUSCULAR HEMOGLOBIN 28.1 pg 25.7-32.2 (BEAKER) (test code = 751) MEAN CORPUSCULAR HEMOGLOBIN CONC 32.2 GM/DL 32.3-36.5 L (BEAKER) (test code = 752) RED CELL DISTRIBUTION WIDTH 16.1 % 11.6-14.4 H (BEAKER) (test code = 412) PLATELET COUNT (BEAKER) (test 395 K/CU MM 150-450 code = 756) MEAN PLATELET VOLUME (BEAKER) 8.3 fL 9.4-12.4 L (test code = 754) NUCLEATED RED BLOOD CELLS 0 /100 WBC 0-0 (BEAKER) (test code = 413) NEUTROPHILS RELATIVE PERCENT 78 % (BEAKER) (test code = 429) LYMPHOCYTES RELATIVE PERCENT 5 % (BEAKER) (test code = 430) MONOCYTES RELATIVE PERCENT 12 % (BEAKER) (test code = 431) EOSINOPHILS RELATIVE PERCENT 5 % (BEAKER) (test code = 432) BASOPHILS RELATIVE PERCENT 0 % (BEAKER) (test code = 437) NEUTROPHILS ABSOLUTE COUNT 9.38 K/ L 1.78-5.38 H (BEAKER) (test code = 670) LYMPHOCYTES ABSOLUTE COUNT 0.58 K/ L 1.32-3.57 L (BEAKER) (test code = 414) MONOCYTES ABSOLUTE COUNT (BEAKER) 1.41 K/ L 0.30-0.82 H (test code = 415) EOSINOPHILS ABSOLUTE COUNT 0.58 K/ L 0.04-0.54 H (BEAKER) (test code = 416) BASOPHILS ABSOLUTE COUNT (BEAKER) 0.05 K/ L 0.01-0.08 (test code = 417) IMMATURE GRANULOCYTES-RELATIVE 1 % 0-1 PERCENT (BEAKER) (test code = 2801) POCT-GLUCOSE [id number] 21:23:00 Test Item Value Reference Range Interpretation Comments POC-GLUCOSE METER 135 mg/dL 70-110 H TESTED AT [place] [address] [facility] (test code = [facility] 1538) [address] POCT-GLUCOSE [id number] 18:20:00 Test Item Value Reference Range Interpretation Comments POC-GLUCOSE METER 80 mg/dL 70-110 TESTED AT [place] [address] ([facility]) (test code = [facility] [address]38) POCT-GLUCOSE [id number] 16:50:00 Test Item Value Reference Range Interpretation Comments POC-GLUCOSE METER 71 mg/dL 70-110 TESTED AT [facility] 6720 [facility] (test code = [facility] Neal [facility] [address] 1538) POCT-GLUCOSE [id number] 12:30:00 Test Item Value Reference Range Interpretation Comments POC-GLUCOSE METER 117 mg/dL 70-110 H TESTED AT [facility] 6720 [facility] (test code = [facility] 1538) [address] OXYGEN SATURATION, [id number] 08:46:00 Test Item Value Reference Range Interpretation Comments O2 SATURATION (MEASURED) (AKER) 66.5 % (test code = 1455) From p iccPOCT-GLUCOSE [id number] 07:53:00 Test Item Value Reference Range Interpretation Comments POC-GLUCOSE METER 150 mg/dL 70-110 H TESTED AT [facility] 6720 [facility] (test code = [facility] 1538) [address] BASIC METABOLIC [id number] 03:06:00 Test Item Value Reference Range Interpretation Comments SODIUM (BEAKER) 131 meq/L 136-145 L (test code = 381) POTASSIUM (BEAKER) 4.4 meq/L 3.5-5.1 (test code = 379) CHLORIDE (BEAKER) 97 meq/L 98-107 L (test code = 382) CO2 (BEAKER) (test 25 meq/L 22-29 code = 355) BLOOD UREA NITROGEN 47 mg/dL 7-21 H (BEAKER) (test code = 354) CREATININE (BEAKER) 1.27 mg/dL 0.57-1.25 H (test code = 358) GLUCOSE RANDOM 160 mg/dL 70-105 H (BEAKER) (test code = 652) CALCIUM (BEAKER) 7.9 mg/dL 8.4-10.2 L (test code = 697) EGFR (BEAKER) (test 56 mL/min/1.73 ESTIMA MARIA DOLORES GFR IS code = 1092) sq m NOT ACCURATE CREATININE CLEARANCE IN PREDICTING GLOMERULAR FILTRATION RATE . ESTIMATED GFR I S NOT APPLICABLE FOR DIALYSIS PATIEN TS. [id number] 02:57:00 Test Item Value Reference Range Interpretation Comments MAGNESIUM (BEAKER) (test code = 1.8 mg/dL 1.6-2.6 627) CBC W/PLT COUNT & AUTO [id number] 02:46:00 Test Item Value Reference Range Interpretation Comments WHITE BLOOD CELL COUNT (BEAKER) 12.9 K/ L 3.5-10.5 H (test code = 775) RED BLOOD CELL COUNT (BEAKER) 2.81 M/ L 4.63-6.08 L (test code = 761) HEMOGLOBIN (BEAKER) (test code = 8.2 GM/DL 13.7-17.5 L 410) HEMATOCRIT (BEAKER) (test code = 24.6 % 40.1-51.0 L 411) MEAN CORPUSCULAR VOLUME (BEAKER) 87.5 fL 79.0-92.2 (test code = 753) MEAN CORPUSCULAR HEMOGLOBIN 29.2 pg 25.7-32.2 (BEAKER) (test code = 751) MEAN CORPUSCULAR HEMOGLOBIN CONC 33.3 GM/DL 32.3-36.5 (BEAKER) (test code = 752) RED CELL DISTRIBUTION WIDTH 16.2 % 11.6-14.4 H (BEAKER) (test code = 412) PLATELET COUNT (BEAKER) (test 376 K/CU MM 150-450 code = 756) MEAN PLATELET VOLUME (BEAKER) 8.5 fL 9.4-12.4 L (test code = 754) NUCLEATED RED BLOOD CELLS 0 /100 WBC 0-0 (BEAKER) (test code = 413) NEUTROPHILS RELATIVE PERCENT 78 % (BEAKER) (test code = 429) LYMPHOCYTES RELATIVE PERCENT 5 % (BEAKER) (test code = 430) MONOCYTES RELATIVE PERCENT 12 % (BEAKER) (test code = 431) EOSINOPHILS RELATIVE PERCENT 4 % (BEAKER) (test code = 432) BASOPHILS RELATIVE PERCENT 0 % (BEAKER) (test code = 437) NEUTROPHILS ABSOLUTE COUNT 10.07 K/ L 1.78-5.38 H (BEAKER) (test code = 670) LYMPHOCYTES ABSOLUTE COUNT 0.65 K/ L 1.32-3.57 L (BEAKER) (test code = 414) MONOCYTES ABSOLUTE COUNT (BEAKER) 1.52 K/ L 0.30-0.82 H (test code = 415) EOSINOPHILS ABSOLUTE COUNT 0.51 K/ L 0.04-0.54 (BEAKER) (test code = 416) BASOPHILS ABSOLUTE COUNT (BEAKER) 0.05 K/ L 0.01-0.08 (test code = 417) IMMATURE GRANULOCYTES-RELATIVE 1 % 0-1 PERCENT (BEAKER) (test code = 2801) POCT-GLUCOSE [id number] 22:00:00 Test Item Value Reference Range Interpretation Comments POC-GLUCOSE METER 180 mg/dL 70-110 H TESTED AT [place] [address] ([facility]) (test code = [facility] 1538) [id number] POCT-GLUCOSE [id number] 17:30:00 Test Item Value Reference Range Interpretation Comments POC-GLUCOSE METER 200 mg/dL 70-110 H TESTED AT [place] [address] ([facility]) (test code = [facility] 1538) [id number] POCT-GLUCOSE [id number] 12:26:00 Test Item Value Reference Range Interpretation Comments POC-GLUCOSE METER 196 mg/dL 70-110 H TESTED AT [place] [address] ([facility]) (test code = [facility] 1538) [id number] POCT-GLUCOSE [id number] 08:00:00 Test Item Value Reference Range Interpretation Comments POC-GLUCOSE METER 105 mg/dL 70-110 TESTED AT [place] [address] ([facility]) (test code = [facility] 1538) [id number] BASIC METABOLIC [id number] 03:10:00 Test Item Value Reference Range Interpretation Comments SODIUM (BEAKER) 130 meq/L 136-145 L (test code = 381) POTASSIUM (BEAKER) 4.7 meq/L 3.5-5.1 (test code = 379) CHLORIDE (BEAKER) 95 meq/L 98-107 L (test code = 382) CO2 (BEAKER) (test 27 meq/L 22-29 code = 355) BLOOD UREA NITROGEN 54 mg/dL 7-21 H (BEAKER) (test code = 354) CREATININE (BEAKER) 1.50 mg/dL 0.57-1.25 H (test code = 358) GLUCOSE RANDOM 86 mg/dL 70-105 (BEAKER) (test code = 652) CALCIUM (BEAKER) 7.8 mg/dL 8.4-10.2 L (test code = 697) EGFR (BEAKER) (test 46 mL/min/1.73 ESTIMA MARIA DOLORES GFR IS code = 1092) sq m NOT ACCURATE CREATININE CLEARANCE IN PREDICTING GLOMERULAR FILTRATION RATE . ESTIMATED GFR I S NOT APPLICABLE FOR DIALYSIS PATIEN TS. CBC W/PLT COUNT & AUTO [id number] 02:59:00 Test Item Value Reference Range Interpretation Comments WHITE BLOOD CELL COUNT (BEAKER) 13.9 K/ L 3.5-10.5 H (test code = 775) RED BLOOD CELL COUNT (BEAKER) 2.96 M/ L 4.63-6.08 L (test code = 761) HEMOGLOBIN (BEAKER) (test code = 8.5 GM/DL 13.7-17.5 L 410) HEMATOCRIT (BEAKER) (test code = 25.9 % 40.1-51.0 L 411) MEAN CORPUSCULAR VOLUME (BEAKER) 87.5 fL 79.0-92.2 (test code = 753) MEAN CORPUSCULAR HEMOGLOBIN 28.7 pg 25.7-32.2 (BEAKER) (test code = 751) MEAN CORPUSCULAR HEMOGLOBIN CONC 32.8 GM/DL 32.3-36.5 (BEAKER) (test code = 752) RED CELL DISTRIBUTION WIDTH 16.6 % 11.6-14.4 H (BEAKER) (test code = 412) PLATELET COUNT (BEAKER) (test 404 K/CU MM 150-450 code = 756) MEAN PLATELET VOLUME (BEAKER) 8.1 fL 9.4-12.4 L (test code = 754) NUCLEATED RED BLOOD CELLS 0 /100 WBC 0-0 (BEAKER) (test code = 413) NEUTROPHILS RELATIVE PERCENT 79 % (BEAKER) (test code = 429) LYMPHOCYTES RELATIVE PERCENT 4 % (BEAKER) (test code = 430) MONOCYTES RELATIVE PERCENT 11 % (BEAKER) (test code = 431) EOSINOPHILS RELATIVE PERCENT 4 % (BEAKER) (test code = 432) BASOPHILS RELATIVE PERCENT 0 % (BEAKER) (test code = 437) NEUTROPHILS ABSOLUTE COUNT 11.03 K/ L 1.78-5.38 H (BEAKER) (test code = 670) LYMPHOCYTES ABSOLUTE COUNT 0.59 K/ L 1.32-3.57 L (BEAKER) (test code = 414) MONOCYTES ABSOLUTE COUNT (BEAKER) 1.57 K/ L 0.30-0.82 H (test code = 415) EOSINOPHILS ABSOLUTE COUNT 0.55 K/ L 0.04-0.54 H (BEAKER) (test code = 416) BASOPHILS ABSOLUTE COUNT (BEAKER) 0.05 K/ L 0.01-0.08 (test code = 417) IMMATURE GRANULOCYTES-RELATIVE 1 % 0-1 PERCENT (AKER) (test code = 2801) POCT-GLUCOSE [id number] 21:36:00 Test Item Value Reference Range Interpretation Comments POC-GLUCOSE METER 105 mg/dL 70-110 TESTED AT [place] [address] ([facility]) (test code = [facility] 1538) [id number] POCT-GLUCOSE [id number] 18:33:00 Test Item Value Reference Range Interpretation Comments POC-GLUCOSE METER 155 mg/dL 70-110 H TESTED AT [place] [address] ([facility]) (test code = [facility] Neal [facility] 1538) [address] POCT-GLUCOSE [id number] 14:12:00 Test Item Value Reference Range Interpretation Comments POC-GLUCOSE METER 347 mg/dL 70-110 H Notified Neal Harmon MD/TESTED ([facility]) (test code = AT [address] 1538) [facility] [address] 0 POCT-GLUCOSE [id number] 08:41:00 Test Item Value Reference Range Interpretation Comments POC-GLUCOSE METER 113 mg/dL 70-110 H TESTED AT [place] [address] ([facility]) (test code = [facility] Neal [facility] 1538) [address] BASIC METABOLIC [id number] 06:04:00 Test Item Value Reference Range Interpretation Comments SODIUM (BEAKER) 131 meq/L 136-145 L (test code = 381) POTASSIUM (BEAKER) 4.5 meq/L 3.5-5.1 (test code = 379) CHLORIDE (BEAKER) 97 meq/L 98-107 L (test code = 382) CO2 (BEAKER) (test 28 meq/L 22-29 code = 355) BLOOD UREA NITROGEN 56 mg/dL 7-21 H (BEAKER) (test code = 354) CREATININE (BEAKER) 1.35 mg/dL 0.57-1.25 H (test code = 358) GLUCOSE RANDOM 85 mg/dL 70-105 (BEAKER) (test code = 652) CALCIUM (BEAKER) 7.9 mg/dL 8.4-10.2 L (test code = 697) EGFR (BEAKER) (test 52 mL/min/1.73 ESTIMA MARIA DOLORES GFR IS code = 1092) sq m NOT ACCURATE CREATININE CLEARANCE IN PREDICTING GLOMERULAR FILTRATION RATE . ESTIMATED GFR I S NOT APPLICABLE FOR DIALYSIS PATIEN TS. [id number] 05:59:00 Test Item Value Reference Range Interpretation Comments MAGNESIUM (BEAKER) (test code = 2.1 mg/dL 1.6-2.6 627) CBC W/PLT COUNT & AUTO [id number] 05:44:00 Test Item Value Reference Range Interpretation Comments WHITE BLOOD CELL COUNT (BEAKER) 12.7 K/ L 3.5-10.5 H (test code = 775) RED BLOOD CELL COUNT (BEAKER) 2.91 M/ L 4.63-6.08 L (test code = 761) HEMOGLOBIN (BEAKER) (test code = 8.2 GM/DL 13.7-17.5 L 410) HEMATOCRIT (BEAKER) (test code = 25.7 % 40.1-51.0 L 411) MEAN CORPUSCULAR VOLUME (BEAKER) 88.3 fL 79.0-92.2 (test code = 753) MEAN CORPUSCULAR HEMOGLOBIN 28.2 pg 25.7-32.2 (BEAKER) (test code = 751) MEAN CORPUSCULAR HEMOGLOBIN CONC 31.9 GM/DL 32.3-36.5 L (BEAKER) (test code = 752) RED CELL DISTRIBUTION WIDTH 16.8 % 11.6-14.4 H (BEAKER) (test code = 412) PLATELET COUNT (BEAKER) (test 404 K/CU MM 150-450 code = 756) MEAN PLATELET VOLUME (BEAKER) 8.3 fL 9.4-12.4 L (test code = 754) NUCLEATED RED BLOOD CELLS 0 /100 WBC 0-0 (BEAKER) (test code = 413) NEUTROPHILS RELATIVE PERCENT 82 % (BEAKER) (test code = 429) LYMPHOCYTES RELATIVE PERCENT 4 % (BEAKER) (test code = 430) MONOCYTES RELATIVE PERCENT 10 % (BEAKER) (test code = 431) EOSINOPHILS RELATIVE PERCENT 4 % (BEAKER) (test code = 432) BASOPHILS RELATIVE PERCENT 0 % (BEAKER) (test code = 437) NEUTROPHILS ABSOLUTE COUNT 10.39 K/ L 1.78-5.38 H (AKER) (test code = 670) LYMPHOCYTES ABSOLUTE COUNT 0.48 K/ L 1.32-3.57 L (BEAKER) (test code = 414) MONOCYTES ABSOLUTE COUNT (BEAKER) 1.23 K/ L 0.30-0.82 H (test code = 415) EOSINOPHILS ABSOLUTE COUNT 0.54 K/ L 0.04-0.54 (BEAKER) (test code = 416) BASOPHILS ABSOLUTE COUNT (BEAKER) 0.03 K/ L 0.01-0.08 (test code = 417) IMMATURE GRANULOCYTES-RELATIVE 1 % 0-1 PERCENT ([facility]) (test code = 2801) POCT-GLUCOSE [id number] 21:59:00 Test Item Value Reference Range Interpretation Comments POC-GLUCOSE METER 146 mg/dL 70-110 H TESTED AT [place] [address] ([facility]) (test code = [facility] Specle [facility] 1538) [address] POCT-GLUCOSE [id number] 19:45:00 Test Item Value Reference Range Interpretation Comments POC-GLUCOSE METER 90 mg/dL 70-110 TESTED AT [place] [address] ([facility]) (test code = [facility] Specle [facility] [address] 1538) POCT-GLUCOSE [id number] 18:41:00 Test Item Value Reference Range Interpretation Comments POC-GLUCOSE METER 56 mg/dL 70-110 L TESTED AT [place] [address] ([facility]) (test code = [facility] Specle [facility] [address] 1538) OXYGEN SATURATION, [id number] 18:02:00 Test Item Value Reference Range Interpretation Comments O2 SATURATION (MEASURED) ([facility]) 65.3 % (test code = 1455) POCT-GLUCOSE [id number] 13:05:00 Test Item Value Reference Range Interpretation Comments POC-GLUCOSE METER 138 mg/dL 70-110 H TESTED AT [place] [address] ([facility]) (test code = [facility] Specle [facility] 1538) [address] POCT-GLUCOSE [id number] 07:30:00 Test Item Value Reference Range Interpretation Comments POC-GLUCOSE METER 70 mg/dL 70-110 TESTED AT [place] [address] ([facility]) (test code = [facility] Specle [facility] [address] 1538) CBC W/PLT COUNT & AUTO [id number] 05:50:00 Test Item Value Reference Range Interpretation Comments WHITE BLOOD CELL COUNT (BEAKER) 13.9 K/ L 3.5-10.5 H (test code = 775) RED BLOOD CELL COUNT (BEAKER) 3.19 M/ L 4.63-6.08 L (test code = 761) HEMOGLOBIN (BEAKER) (test code = 8.9 GM/DL 13.7-17.5 L 410) HEMATOCRIT (BEAKER) (test code = 28.0 % 40.1-51.0 L 411) MEAN CORPUSCULAR VOLUME (BEAKER) 87.8 fL 79.0-92.2 (test code = 753) MEAN CORPUSCULAR HEMOGLOBIN 27.9 pg 25.7-32.2 (BEAKER) (test code = 751) MEAN CORPUSCULAR HEMOGLOBIN CONC 31.8 GM/DL 32.3-36.5 L (BEAKER) (test code = 752) RED CELL DISTRIBUTION WIDTH 16.8 % 11.6-14.4 H (BEAKER) (test code = 412) PLATELET COUNT (BEAKER) (test 429 K/CU MM 150-450 code = 756) MEAN PLATELET VOLUME (BEAKER) 8.5 fL 9.4-12.4 L (test code = 754) NUCLEATED RED BLOOD CELLS 0 /100 WBC 0-0 (BEAKER) (test code = 413) NEUTROPHILS RELATIVE PERCENT 79 % (BEAKER) (test code = 429) LYMPHOCYTES RELATIVE PERCENT 3 % (BEAKER) (test code = 430) MONOCYTES RELATIVE PERCENT 11 % (BEAKER) (test code = 431) EOSINOPHILS RELATIVE PERCENT 6 % (BEAKER) (test code = 432) BASOPHILS RELATIVE PERCENT 0 % (BEAKER) (test code = 437) NEUTROPHILS ABSOLUTE COUNT 10.98 K/ L 1.78-5.38 H (BEAKER) (test code = 670) LYMPHOCYTES ABSOLUTE COUNT 0.47 K/ L 1.32-3.57 L (BEAKER) (test code = 414) MONOCYTES ABSOLUTE COUNT (BEAKER) 1.52 K/ L 0.30-0.82 H (test code = 415) EOSINOPHILS ABSOLUTE COUNT 0.78 K/ L 0.04-0.54 H (BEAKER) (test code = 416) BASOPHILS ABSOLUTE COUNT (BEAKER) 0.04 K/ L 0.01-0.08 (test code = 417) IMMATURE GRANULOCYTES-RELATIVE 1 % 0-1 PERCENT (BEAKER) (test code = 2801) [id number] 05:44:00 Test Item Value Reference Range Interpretation Comments MAGNESIUM (BEAKER) (test code = 2.3 mg/dL 1.6-2.6 627) BASIC METABOLIC [id number] 05:44:00 Test Item Value Reference Range Interpretation Comments SODIUM (BEAKER) 128 meq/L 136-145 L (test code = 381) POTASSIUM (BEAKER) 5.8 meq/L 3.5-5.1 H (test code = 379) CHLORIDE (BEAKER) 96 meq/L 98-107 L (test code = 382) CO2 (BEAKER) (test 25 meq/L 22-29 code = 355) BLOOD UREA NITROGEN 73 mg/dL 7-21 H (BEAKER) (test code = 354) CREATININE (BEAKER) 1.57 mg/dL 0.57-1.25 H (test code = 358) GLUCOSE RANDOM 57 mg/dL 70-105 L (BEAKER) (test code = 652) CALCIUM (BEAKER) 8.0 mg/dL 8.4-10.2 L (test code = 697) EGFR (BEAKER) (test 44 mL/min/1.73 ESTIMA MARIA DOLORES GFR IS code = 1092) sq m NOT ACCURATE CREATININE CLEARANCE IN PREDICTING GLOMERULAR FILTRATION RATE . ESTIMATED GFR I S NOT APPLICABLE FOR DIALYSIS PATIEN TS. HEPATIC FUNCTION [id number] 05:44:00 Test Item Value Reference Range Interpretation Comments TOTAL PROTEIN (BEAKER) (test code = 5.5 gm/dL 6.0-8.3 L 770) ALBUMIN (BEAKER) (test code = 1145) 2.6 g/dL 3.5-5.0 L BILIRUBIN TOTAL (BEAKER) (test code 1.2 mg/dL 0.2-1.2 = 377) BILIRUBIN DIRECT (BEAKER) (test 0.9 mg/dL 0.1-0.5 H code = 706) ALKALINE PHOSPHATASE (BEAKER) (test 90 U/L 40-150 code = 346) AST (SGOT) (BEAKER) (test code = 39 U/L 5-34 H 353) ALT (SGPT) (BEAKER) (test code = 35 U/L 6-55 347) B-TYPE NATRIURETIC FACTOR (BNP)2016-10-27 05:42:00 Test Item Value Reference Range Interpretation Comments B-TYPE NATRIURETIC PEPTIDE (BEAKER) 637 pg/mL 0-100 H (test code = 700) POCT-GLUCOSE [id number] 21:47:00 Test Item Value Reference Range Interpretation Comments POC-GLUCOSE METER 93 mg/dL 70-110 [facility] AT [place] [address] [facility] (test code = [facility] [address] 1538) POCT-GLUCOSE [id number] 18:06:00 Test Item Value Reference Range Interpretation Comments POC-GLUCOSE METER 81 mg/dL 70-110 TESTED AT [place] [address] ([facility]) (test code = [facility] [address] 1538) BASIC METABOLIC [id number] 15:40:00 Test Item Value Reference Range Interpretation Comments SODIUM (BEAKER) 126 meq/L 136-145 L (test code = 381) POTASSIUM (BEAKER) 5.4 meq/L 3.5-5.1 H (test code = 379) CHLORIDE (BEAKER) 97 meq/L 98-107 L (test code = 382) CO2 (BEAKER) (test 23 meq/L 22-29 code = 355) BLOOD UREA NITROGEN 73 mg/dL 7-21 H (BEAKER) (test code = 354) CREATININE (BEAKER) 1.64 mg/dL 0.57-1.25 H (test code = 358) GLUCOSE RANDOM 109 mg/dL 70-105 H (BEAKER) (test code = 652) CALCIUM (BEAKER) 8.0 mg/dL 8.4-10.2 L (test code = 697) EGFR (BEAKER) (test 42 mL/min/1.73 ESTIMA MARIA DOLORES GFR IS code = 1092) sq m NOT ACCURATE CREATININE CLEARANCE IN PREDICTING GLOMERULAR FILTRATION RATE . ESTIMATED GFR I S NOT APPLICABLE FOR DIALYSIS PATIEN TS. B-TYPE NATRIURETIC FACTOR (BNP)2016-10-26 14:57:00 Test Item Value Reference Range Interpretation Comments B-TYPE NATRIURETIC PEPTIDE (BEAKER) 667 pg/mL 0-100 H (test code = 700) POCT-GLUCOSE [id number] 12:53:00 Test Item Value Reference Range Interpretation Comments POC-GLUCOSE METER 132 mg/dL 70-110 H TESTED AT [place] [address] ([facility]) (test code = NERY De Jesus [facility] 1538) [address] URINE [id number] 10:15:00 Test Item Value Reference Interpretation Comments Range CULTURE ([facility]) (test ENTEROBACTER A >100, 000 col/mL code = 1095) CLOACAE COMPLEX Enterobacter cloacae complex Amikacin (test code = S 1) Aztreonam (test code = S 32) Cefepime (test code = S 51) Cefoxitin (test code = R 68) Ceftazidime (test code S = 27) Ceftriaxone (test code S = 52) Ertapenem (test code = S 38) Gentamicin (test code S = 18) Levofloxacin (test S code = 22) Meropenem (test code = S 34) Nitrofurantoin (test R code = 23) Piperacillin + S Tazobactam (test code = 29) Tetracycline (test S code = 2) Tobramycin (test code S = 25) Trimethoprim + S Sulfamethoxazole (test code = 47) POCT-GLUCOSE [id number] 08:21:00 Test Item Value Reference Range Interpretation Comments POC-GLUCOSE METER 80 mg/dL 70-110 TESTED AT [place] [address] ([facility]) (test code = NERY De Jesus [facility] [address] 1538) POCT-GLUCOSE [id number] 07:48:00 Test Item Value Reference Range Interpretation Comments POC-GLUCOSE METER 68 mg/dL 70-110 L TESTED AT [place] [address] ([facility]) (test code = NERY De Jesus [facility] [address] 1538) OXYGEN SATURATION, [id number] 06:44:00 Test Item Value Reference Range Interpretation Comments O2 SATURATION (MEASURED) ([facility]) 72.0 % (test code = 1455) [id number] 06:06:00 Test Item Value Reference Range Interpretation Comments MAGNESIUM ([facility]) (test code = 2.2 mg/dL 1.6-2.6 627) BASIC METABOLIC [id number] 06:06:00 Test Item Value Reference Range Interpretation Comments SODIUM ([facility]) 129 meq/L 136-145 L (test code = 381) POTASSIUM (BEAKER) 5.4 meq/L 3.5-5.1 H (test code = 379) CHLORIDE (BEAKER) 98 meq/L 98-107 (test code = 382) CO2 (BEAKER) (test 25 meq/L 22-29 code = 355) BLOOD UREA NITROGEN 71 mg/dL 7-21 H (BEAKER) (test code = 354) CREATININE (BEAKER) 1.63 mg/dL 0.57-1.25 H (test code = 358) GLUCOSE RANDOM 69 mg/dL 70-105 L (BEAKER) (test code = 652) CALCIUM (BEAKER) 8.1 mg/dL 8.4-10.2 L (test code = 697) EGFR (BEAKER) (test 42 mL/min/1.73 ESTIMA MARIA DOLORES GFR IS code = 1092) sq m NOT ACCURATE CREATININE CLEARANCE IN PREDICTING GLOMERULAR FILTRATION RATE . ESTIMATED GFR I S NOT APPLICABLE FOR DIALYSIS PATIEN TS. CBC W/PLT COUNT & AUTO [id number] 05:57:00 Test Item Value Reference Range Interpretation Comments WHITE BLOOD CELL COUNT (BEAKER) 14.1 K/ L 3.5-10.5 H (test code = 775) RED BLOOD CELL COUNT (BEAKER) 3.01 M/ L 4.63-6.08 L (test code = 761) HEMOGLOBIN (BEAKER) (test code = 8.5 GM/DL 13.7-17.5 L 410) HEMATOCRIT (BEAKER) (test code = 26.3 % 40.1-51.0 L 411) MEAN CORPUSCULAR VOLUME (BEAKER) 87.4 fL 79.0-92.2 (test code = 753) MEAN CORPUSCULAR HEMOGLOBIN 28.2 pg 25.7-32.2 (BEAKER) (test code = 751) MEAN CORPUSCULAR HEMOGLOBIN CONC 32.3 GM/DL 32.3-36.5 (BEAKER) (test code = 752) RED CELL DISTRIBUTION WIDTH 17.0 % 11.6-14.4 H (BEAKER) (test code = 412) PLATELET COUNT (BEAKER) (test 417 K/CU MM 150-450 code = 756) MEAN PLATELET VOLUME (BEAKER) 8.7 fL 9.4-12.4 L (test code = 754) NUCLEATED RED BLOOD CELLS 0 /100 WBC 0-0 (BEAKER) (test code = 413) NEUTROPHILS RELATIVE PERCENT 74 % (BEAKER) (test code = 429) LYMPHOCYTES RELATIVE PERCENT 6 % (BEAKER) (test code = 430) MONOCYTES RELATIVE PERCENT 15 % (BEAKER) (test code = 431) EOSINOPHILS RELATIVE PERCENT 5 % (BEAKER) (test code = 432) BASOPHILS RELATIVE PERCENT 0 % (BEAKER) (test code = 437) NEUTROPHILS ABSOLUTE COUNT 10.41 K/ L 1.78-5.38 H (BEAKER) (test code = 670) LYMPHOCYTES ABSOLUTE COUNT 0.85 K/ L 1.32-3.57 L (BEAKER) (test code = 414) MONOCYTES ABSOLUTE COUNT (BEAKER) 2.05 K/ L 0.30-0.82 H (test code = 415) EOSINOPHILS ABSOLUTE COUNT 0.67 K/ L 0.04-0.54 H (BEAKER) (test code = 416) BASOPHILS ABSOLUTE COUNT (BEAKER) 0.03 K/ L 0.01-0.08 (test code = 417) IMMATURE GRANULOCYTES-RELATIVE 1 % 0-1 PERCENT (BEAKER) (test code = 2801) POCT-GLUCOSE [id number] 05:03:00 Test Item Value Reference Range Interpretation Comments POC-GLUCOSE METER 71 mg/dL 70-110 TESTED AT [place] [address] ([facility]) (test code = NERY De Jesus [facility] [address] 1538) POCT-GLUCOSE [id number] 22:42:00 Test Item Value Reference Range Interpretation Comments POC-GLUCOSE METER 112 mg/dL 70-110 H TESTED AT [place] [address] ([facility]) (test code = NERY De Jesus [facility] 1538) [address] POCT-GLUCOSE [id number] 21:31:00 Test Item Value Reference Range Interpretation Comments POC-GLUCOSE METER 58 mg/dL 70-110 L Corinneied Neal Harmon MD/TESTED AT ([facility]) [address]test code = [address]) [facility] 7[address] 0 POCT-GLUCOSE [id number] 16:10:00 Test Item Value Reference Range Interpretation Comments POC-GLUCOSE METER 89 mg/dL 70-110 TESTED AT [place] [address] ([facility]) (test code = NERY De Jesus [facility] [address] 1538) POCT-GLUCOSE [id number] 13:08:00 Test Item Value Reference Range Interpretation Comments POC-GLUCOSE METER 81 mg/dL 70-110 TESTED AT [facility] 6720 ([facility]) (test code = NERY De Jesus [facility] [address] 1538) POCT-GLUCOSE [id number] 12:39:00 Test Item Value Reference Range Interpretation Comments POC-GLUCOSE METER 68 mg/dL 70-110 L Notified R Eden SKELTON/TESTED AT ([facility]) (test code = [place] [address] [facility] 7[address] 0 BASIC METABOLIC [id number] 11:54:00 Test Item Value Reference Range Interpretation Comments SODIUM (BEAKER) 128 meq/L 136-145 L (test code = 381) POTASSIUM (BEAKER) 4.7 meq/L 3.5-5.1 (test code = 379) CHLORIDE (BEAKER) 96 meq/L 98-107 L (test code = 382) CO2 (BEAKER) (test 24 meq/L 22-29 code = 355) BLOOD UREA NITROGEN 65 mg/dL 7-21 H (BEAKER) (test code = 354) CREATININE (BEAKER) 1.56 mg/dL 0.57-1.25 H (test code = 358) GLUCOSE RANDOM 85 mg/dL 70-105 (BEAKER) (test code = 652) CALCIUM (BEAKER) 8.0 mg/dL 8.4-10.2 L (test code = 697) EGFR (BEAKER) (test 44 mL/min/1.73 ESTIMA MARIA DOLORES GFR IS code = 1092) sq m NOT ACCURATE CREATININE CLEARANCE IN PREDICTING GLOMERULAR FILTRATION RATE . ESTIMATED GFR I S NOT APPLICABLE FOR DIALYSIS PATIEN TS. POCT-GLUCOSE [id number] 08:04:00 Test Item Value Reference Range Interpretation Comments POC-GLUCOSE METER 128 mg/dL 70-110 H TESTED AT [facility] 6720 ([facility]) (test code = NERY De Jesus [facility] 1538) [address] OXYGEN SATURATION, [id number] 06:17:00 Test Item Value Reference Range Interpretation Comments O2 SATURATION (MEASURED) (BEAKER) 68.7 % (test code = 1455) [id number] 05:30:00 Test Item Value Reference Range Interpretation Comments CORTISOL, TOTAL (BEAKER) (test 13.8 ug/dL 3.7-19.4 code = 8709) POCT-GLUCOSE [id number] 20:36:00 Test Item Value Reference Range Interpretation Comments POC-GLUCOSE METER 158 mg/dL 70-110 H [facility] AT [place] [address] [facility] (test code = NERY De Jesus [facility] 1538) [address] HEMOGLOBIN AND [id number] 14:16:00 Test Item Value Reference Range Interpretation Comments HEMOGLOBIN (BEAKER) (test code = 8.4 GM/DL 13.7-17.5 L 410) HEMATOCRIT (BEAKER) (test code = 25.5 % 40.1-51.0 L 411) POCT-GLUCOSE [id number] 11:57:00 Test Item Value Reference Range Interpretation Comments POC-GLUCOSE METER 205 mg/dL 70-110 H TESTED AT [place] [address] [facility] (test code = [facility] 1538) [address] OSMOLALITY, [id number] 11:29:00 Test Item Value Reference Range Interpretation Comments OSMOLALITY URINE (BEAKER) (test 377 mOsm/kg 40-1400 code = 614) OSMOLALITY, [id number] 11:29:00 Test Item Value Reference Range Interpretation Comments OSMOLALITY, SERUM (BEAKER) (test 296 mOsm/kg 275-295 H code = 615) SODIUM, RANDOM [id number] 11:17:00 Test Item Value Reference Range Interpretation Comments SODIUM URINE (BEAKER) (test code = 36 meq/L 243) Reference Range: No NormalsOXYGEN SATURATION, [id number] 10:45:00 Test Item Value Reference Range Interpretation Comments O2 SATURATION (MEASURED) (BEAKER) 60.9 % (test code = 1455) POCT-GLUCOSE [id number] 08:33:00 Test Item Value Reference Range Interpretation Comments POC-GLUCOSE METER 172 mg/dL 70-110 H TESTED AT [place] [address] [facility] (test code = [facility] 1538) [address] BASIC METABOLIC [id number] 07:16:00 Test Item Value Reference Range Interpretation Comments SODIUM (BEAKER) 128 meq/L 136-145 L (test code = 381) POTASSIUM (BEAKER) 5.0 meq/L 3.5-5.1 (test code = 379) CHLORIDE (BEAKER) 95 meq/L 98-107 L (test code = 382) CO2 (BEAKER) (test 26 meq/L 22-29 code = 355) BLOOD UREA NITROGEN 58 mg/dL 7-21 H (AKER) (test code = 354) CREATININE (BEAKER) 1.30 mg/dL 0.57-1.25 H (test code = 358) GLUCOSE RANDOM 154 mg/dL 70-105 H ([facility]) (test code = 652) CALCIUM (BEAKER) 7.7 mg/dL 8.4-10.2 L (test code = 697) EGFR (BEAKER) (test 55 mL/min/1.73 ESTIMA MARIA DOLORES GFR IS code = 1092) sq m NOT ACCURATE CREATININE CLEARANCE IN PREDICTING GLOMERULAR FILTRATION RATE . ESTIMATED GFR I S NOT APPLICABLE FOR DIALYSIS PATIEN TS. [id number] 07:14:00 Test Item Value Reference Range Interpretation Comments MAGNESIUM ([facility]) (test code = 2.0 mg/dL 1.6-2.6 627) POCT-GLUCOSE [id number] 23:28:00 Test Item Value Reference Range Interpretation Comments POC-GLUCOSE METER 213 mg/dL 70-110 H TESTED AT [place] [address] ([facility]) (test code = NERY De Jesus [facility] 1538) [id number] POCT-GLUCOSE [id number] 17:20:00 Test Item Value Reference Range Interpretation Comments POC-GLUCOSE METER 246 mg/dL 70-110 H TESTED AT [place] [address] ([facility]) (test code = NERY De Jesus [facility] 1538) [address] POCT-GLUCOSE [id number] 12:22:00 Test Item Value Reference Range Interpretation Comments POC-GLUCOSE METER 325 mg/dL 70-110 H Notified R Eden SKELTON/TESTED ([facility]) (test code = AT [facility] [address] [facility] 1538) [place] [address] POCT-GLUCOSE [id number] 08:07:00 Test Item Value Reference Range Interpretation Comments POC-GLUCOSE METER 199 mg/dL 70-110 H TESTED AT [place] [address] ([facility]) (test code = [place] [facility] 1538) [id number] TSH/FREE T4 IF [id number] 04:46:00 Test Item Value Reference Range Interpretation Comments THYROID STIMULATING HORMONE 3.07 uIU/mL 0.35-4.94 ([facility]) (test code = 772) BASIC METABOLIC [id number] 04:30:00 Test Item Value Reference Range Interpretation Comments SODIUM (BEAKER) 127 meq/L 136-145 L (test code = 381) POTASSIUM (BEAKER) 5.0 meq/L 3.5-5.1 (test code = 379) CHLORIDE (BEAKER) 95 meq/L 98-107 L (test code = 382) CO2 (BEAKER) (test 25 meq/L 22-29 code = 355) BLOOD UREA NITROGEN 53 mg/dL 7-21 H (BEAKER) (test code = 354) CREATININE (BEAKER) 1.30 mg/dL 0.57-1.25 H (test code = 358) GLUCOSE RANDOM 260 mg/dL 70-105 H (BEAKER) (test code = 652) CALCIUM (BEAKER) 7.8 mg/dL 8.4-10.2 L (test code = 697) EGFR (BEAKER) (test 55 mL/min/1.73 ESTIMA MARIA DOLORES GFR IS code = 1092) sq m NOT ACCURATE CREATININE CLEARANCE IN PREDICTING GLOMERULAR FILTRATION RATE . ESTIMATED GFR I S NOT APPLICABLE FOR DIALYSIS PATIEN TS. [id number] 04:26:00 Test Item Value Reference Range Interpretation Comments MAGNESIUM (BEAKER) (test code = 2.0 mg/dL 1.6-2.6 627) CBC W/PLT COUNT & AUTO [id number] 04:16:00 Test Item Value Reference Range Interpretation Comments WHITE BLOOD CELL COUNT (BEAKER) 11.3 K/ L 3.5-10.5 H (test code = 775) RED BLOOD CELL COUNT (BEAKER) 3.11 M/ L 4.63-6.08 L (test code = 761) HEMOGLOBIN (BEAKER) (test code = 8.8 GM/DL 13.7-17.5 L 410) HEMATOCRIT (BEAKER) (test code = 26.3 % 40.1-51.0 L 411) MEAN CORPUSCULAR VOLUME (BEAKER) 84.6 fL 79.0-92.2 (test code = 753) MEAN CORPUSCULAR HEMOGLOBIN 28.3 pg 25.7-32.2 (BEAKER) (test code = 751) MEAN CORPUSCULAR HEMOGLOBIN CONC 33.5 GM/DL 32.3-36.5 (BEAKER) (test code = 752) RED CELL DISTRIBUTION WIDTH 15.9 % 11.6-14.4 H (BEAKER) (test code = 412) PLATELET COUNT (BEAKER) (test 292 K/CU MM 150-450 code = 756) MEAN PLATELET VOLUME (BEAKER) 9.0 fL 9.4-12.4 L (test code = 754) NUCLEATED RED BLOOD CELLS 0 /100 WBC 0-0 (BEAKER) (test code = 413) NEUTROPHILS RELATIVE PERCENT 72 % (BEAKER) (test code = 429) LYMPHOCYTES RELATIVE PERCENT 6 % (BEAKER) (test code = 430) MONOCYTES RELATIVE PERCENT 16 % (BEAKER) (test code = 431) EOSINOPHILS RELATIVE PERCENT 5 % (BEAKER) (test code = 432) BASOPHILS RELATIVE PERCENT 0 % (BEAKER) (test code = 437) NEUTROPHILS ABSOLUTE COUNT 8.15 K/ L 1.78-5.38 H (BEAKER) (test code = 670) LYMPHOCYTES ABSOLUTE COUNT 0.66 K/ L 1.32-3.57 L (BEAKER) (test code = 414) MONOCYTES ABSOLUTE COUNT (BEAKER) 1.76 K/ L 0.30-0.82 H (test code = 415) EOSINOPHILS ABSOLUTE COUNT 0.56 K/ L 0.04-0.54 H (BEAKER) (test code = 416) BASOPHILS ABSOLUTE COUNT (BEAKER) 0.02 K/ L 0.01-0.08 (test code = 417) IMMATURE GRANULOCYTES-RELATIVE 1 % 0-1 PERCENT (BEAKER) (test code = 2801) OXYGEN SATURATION, [id number] 04:09:00 Test Item Value Reference Range Interpretation Comments O2 SATURATION (MEASURED) (BEAKER) 74.6 % (test code = 1455) From piccPOCT-GLUCOSE [id number] 21:46:00 Test Item Value Reference Range Interpretation Comments POC-GLUCOSE METER 277 mg/dL 70-110 H TESTED AT [facility] [address] (BEAKER) (test code = [place] 1538) [address] URINALYSIS W/ [id number] 17:56:00 Test Item Value Reference Range Interpretation Comments COLOR (BEAKER) (test code = 470) Yellow CLARITY (BEAKER) (test code = 469) Hazy SPECIFIC GRAVITY UA (BEAKER) (test 1.006 1.001-1.035 code = 468) PH UA (BEAKER) (test code = 467) 5.0 5.0-8.0 PROTEIN UA (BEAKER) (test code = Negative Negative 464) GLUCOSE UA (BEAKER) (test code = Negative Negative 365) KETONES UA (BEAKER) (test code = Negative Negative 371) BILIRUBIN UA (BEAKER) (test code = Negative Negative 462) BLOOD UA (BEAKER) (test code = Trace Negative A 461) NITRITE UA (BEAKER) (test code = Negative Negative 465) LEUKOCYTE ESTERASE UA (BEAKER) Large Negative A (test code = 466) UROBILINOGEN UA (BEAKER) (test 0.2 mg/dL 0.2-1.0 code = 463) RBC UA (BEAKER) (test code = 519) 9 /HPF WBC UA (BEAKER) (test code = 520) 52 /HPF BACTERIA (BEAKER) (test code = Occasional 517) MUCUS (BEAKER) (test code = 1574) Rare SQUAMOUS EPITHELIAL (BEAKER) (test 1 /HPF code = 516) YEAST (BEAKER) (test code = 1585) Moderate SOURCE(BEAKER) (test code = 5587) TSH/FREE T4 IF [id number] 17:15:00 Test Item Value Reference Range Interpretation Comments THYROID STIMULATING HORMONE 2.91 uIU/mL 0.35-4.94 (BEAKER) (test code = 772) POCT-GLUCOSE [id number] 17:07:00 Test Item Value Reference Range Interpretation Comments POC-GLUCOSE METER 275 mg/dL 70-110 H TESTED AT [facility] 6720 (BEAKER) (test code = [facility] Neal [facility] 1538) [address] CREATININE, RANDOM [id number] 14:19:00 Test Item Value Reference Range Interpretation Comments CREATININE URINE (BEAKER) (test 20.8 mg/dL code = 375) Reference Range: No NormalsSODIUM, RANDOM [id number] 14:19:00 Test Item Value Reference Range Interpretation Comments SODIUM URINE (BEAKER) (test code = 48 meq/L 243) Reference Range: No NormalsUREA NITROGEN, RANDOM [id number] 14:19:00 Test Item Value Reference Range Interpretation Comments UREA NITROGEN URINE (BEAKER) (test 348 mg/dL code = 538) Reference Range: No NormalsPOCT-GLUCOSE [id number] 12:15:00 Test Item Value Reference Range Interpretation Comments POC-GLUCOSE METER 254 mg/dL 70-110 H TESTED AT [facility] 6720 (BEAKER) (test code = NERY [place] 1538) [address] POCT-GLUCOSE [id number] 07:43:00 Test Item Value Reference Range Interpretation Comments POC-GLUCOSE METER 163 mg/dL 70-110 H TESTED AT [place] [address] (BEAKER) (test code = NERY De Jesus [place] 1538) [address] CBC (HEMOGRAM ONLY)2016-10-22 07:31:00 Test Item Value Reference Range Interpretation Comments WHITE BLOOD CELL COUNT (BEAKER) 11.4 K/ L 3.5-10.5 H (test code = 775) RED BLOOD CELL COUNT (BEAKER) 2.96 M/ L 4.63-6.08 L (test code = 761) HEMOGLOBIN (BEAKER) (test code = 8.4 GM/DL 13.7-17.5 L 410) HEMATOCRIT (BEAKER) (test code = 25.1 % 40.1-51.0 L 411) MEAN CORPUSCULAR VOLUME (BEAKER) 84.8 fL 79.0-92.2 (test code = 753) MEAN CORPUSCULAR HEMOGLOBIN 28.4 pg 25.7-32.2 (BEAKER) (test code = 751) MEAN CORPUSCULAR HEMOGLOBIN CONC 33.5 GM/DL 32.3-36.5 (BEAKER) (test code = 752) RED CELL DISTRIBUTION WIDTH 15.9 % 11.6-14.4 H (BEAKER) (test code = 412) PLATELET COUNT (BEAKER) (test 256 K/CU MM 150-450 code = 756) MEAN PLATELET VOLUME (BEAKER) 9.1 fL 9.4-12.4 L (test code = 754) NUCLEATED RED BLOOD CELLS 0 /100 WBC 0-0 (BEAKER) (test code = 413) BASIC METABOLIC [id number] 07:28:00 Test Item Value Reference Range Interpretation Comments SODIUM (BEAKER) 128 meq/L 136-145 L (test code = 381) POTASSIUM (BEAKER) 4.6 meq/L 3.5-5.1 (test code = 379) CHLORIDE (BEAKER) 95 meq/L 98-107 L (test code = 382) CO2 (BEAKER) (test 29 meq/L 22-29 code = 355) BLOOD UREA NITROGEN 51 mg/dL 7-21 H (BEAKER) (test code = 354) CREATININE (BEAKER) 1.15 mg/dL 0.57-1.25 (test code = 358) GLUCOSE RANDOM 185 mg/dL 70-105 H (BEAKER) (test code = 652) CALCIUM (BEAKER) 7.8 mg/dL 8.4-10.2 L (test code = 697) EGFR (BEAKER) (test 63 mL/min/1.73 ESTIMA MARIA DOLORES GFR IS code = 1092) sq m NOT ACCURATE CREATININE CLEARANCE IN PREDICTING GLOMERULAR FILTRATION RATE . ESTIMATED GFR I S NOT APPLICABLE FOR DIALYSIS PATIEN TS. [id number] 07:25:00 Test Item Value Reference Range Interpretation Comments MAGNESIUM (BEAKER) (test code = 2.0 mg/dL 1.6-2.6 627) POCT-GLUCOSE [id number] 21:08:00 Test Item Value Reference Range Interpretation Comments POC-GLUCOSE METER 251 mg/dL 70-110 H TEST[facility] AT [place] [address] [facility] (test code = N[place] 1538) [address] POCT-GLUCOSE [id number] 18:33:00 Test Item Value Reference Range Interpretation Comments POC-GLUCOSE METER 292 mg/dL 70-110 H TESTED AT [place] [address] ([facility]) (test code = [place] 1538) [address] POCT-GLUCOSE [id number] 13:14:00 Test Item Value Reference Range Interpretation Comments POC-GLUCOSE METER 230 mg/dL 70-110 H TESTED AT [place] [address] ([facility] (test code = N[place] 1538) [address] POCT-GLUCOSE [id number] 10:23:00 Test Item Value Reference Range Interpretation Comments POC-GLUCOSE METER 186 mg/dL 70-110 H TESTED AT [facility] 6720 [facility] (test code = [place] 1538) [address] BASIC METABOLIC [id number] 04:32:00 Test Item Value Reference Range Interpretation Comments SODIUM (BEAKER) 129 meq/L 136-145 L (test code = 381) POTASSIUM (BEAKER) 4.2 meq/L 3.5-5.1 (test code = 379) CHLORIDE (BEAKER) 97 meq/L 98-107 L (test code = 382) CO2 (BEAKER) (test 27 meq/L 22-29 code = 355) BLOOD UREA NITROGEN 49 mg/dL 7-21 H (BEAKER) (test code = 354) CREATININE (BEAKER) 1.12 mg/dL 0.57-1.25 (test code = 358) GLUCOSE RANDOM 189 mg/dL 70-105 H (BEAKER) (test code = 652) CALCIUM (BEAKER) 7.7 mg/dL 8.4-10.2 L (test code = 697) EGFR (BEAKER) (test 65 mL/min/1.73 ESTIMA MARIA DOLORES GFR IS code = 1092) sq m NOT ACCURATE CREATININE CLEARANCE IN PREDICTING GLOMERULAR FILTRATION RATE . ESTIMATED GFR I S NOT APPLICABLE FOR DIALYSIS PATIEN TS. [id number] 04:31:00 Test Item Value Reference Range Interpretation Comments MAGNESIUM (BEAKER) (test code = 1.9 mg/dL 1.6-2.6 627) CBC (HEMOGRAM ONLY)2016-10-21 04:08:00 Test Item Value Reference Range Interpretation Comments WHITE BLOOD CELL COUNT (BEAKER) 10.2 K/ L 3.5-10.5 (test code = 775) RED BLOOD CELL COUNT (BEAKER) 2.86 M/ L 4.63-6.08 L (test code = 761) HEMOGLOBIN (BEAKER) (test code = 8.2 GM/DL 13.7-17.5 L 410) HEMATOCRIT (BEAKER) (test code = 24.0 % 40.1-51.0 L 411) MEAN CORPUSCULAR VOLUME (BEAKER) 83.9 fL 79.0-92.2 (test code = 753) MEAN CORPUSCULAR HEMOGLOBIN 28.7 pg 25.7-32.2 (BEAKER) (test code = 751) MEAN CORPUSCULAR HEMOGLOBIN CONC 34.2 GM/DL 32.3-36.5 (BEAKER) (test code = 752) RED CELL DISTRIBUTION WIDTH 15.0 % 11.6-14.4 H (BEAKER) (test code = 412) PLATELET COUNT ([facility]) (test 208 K/CU MM 150-450 code = 756) MEAN PLATELET VOLUME ([facility]) 9.3 fL 9.4-12.4 L (test code = 754) NUCLEATED RED BLOOD CELLS 0 /100 WBC 0-0 ([facility]) (test code = 413) OXYGEN SATURATION, [id number] 04:08:00 Test Item Value Reference Range Interpretation Comments O2 SATURATION (MEASURED) ([facility]) 68.6 % (test code = 1455) Central linePOCT-GLUCOSE [id number] 22:05:00 Test Item Value Reference Range Interpretation Comments POC-GLUCOSE METER 301 mg/dL 70-110 H TESTED AT [place] [address] ([facility]) (test code = [place] 1538) [address] [id number] 21:20:00 Test Item Value Reference Range Interpretation Comments POTASSIUM ([facility]) (test code = 4.3 meq/L 3.5-5.1 379) Check Serum Potassium level 2 hours after oral potassium replacement completed or 30 min after intravenous potassium replacement.POCT-GLUCOSE [id number] 18:09:00 Test Item Value Reference Range Interpretation Comments POC-GLUCOSE METER 238 mg/dL 70-110 H TESTED AT [place] [address] ([facility]) (test code = NERY De Jesus [place] 1538) [address] HGB/HCT (H&H) - STAT [id number] 13:23:00 Test Item Value Reference Range Interpretation Comments HEMOGLOBIN ([facility]) (test code = 9.7 g/dL 13.0-16.8 L 410) HEMATOCRIT ([facility]) (test code = 29.0 % 40.0-50.0 L 411) POTASSIUM-STAT [id number] 13:21:00 Test Item Value Reference Range Interpretation Comments POTASSIUM ([facility]) (test code = 4.2 meq/L 3.6-5.5 379) POCT-GLUCOSE [id number] 11:35:00 Test Item Value Reference Range Interpretation Comments POC-GLUCOSE METER 285 mg/dL 70-110 H TESTED AT [place] [address] ([facility]) (test code = [place] 1538) [address] POCT-GLUCOSE [id number] 07:53:00 Test Item Value Reference Range Interpretation Comments POC-GLUCOSE METER 145 mg/dL 70-110 H TESTED AT [facility] 6720 (BEAKER) (test code = [place] 1538) [address] BASIC METABOLIC [id number] 04:24:00 Test Item Value Reference Range Interpretation Comments SODIUM (BEAKER) 130 meq/L 136-145 L (test code = 381) POTASSIUM (BEAKER) 3.9 meq/L 3.5-5.1 (test code = 379) CHLORIDE (BEAKER) 98 meq/L 98-107 (test code = 382) CO2 (BEAKER) (test 25 meq/L 22-29 code = 355) BLOOD UREA NITROGEN 49 mg/dL 7-21 H (BEAKER) (test code = 354) CREATININE (BEAKER) 1.26 mg/dL 0.57-1.25 H (test code = 358) GLUCOSE RANDOM 129 mg/dL 70-105 H (BEAKER) (test code = 652) CALCIUM (BEAKER) 7.7 mg/dL 8.4-10.2 L (test code = 697) EGFR (BEAKER) (test 57 mL/min/1.73 ESTIMA MARIA DOLORES GFR IS code = 1092) sq m NOT ACCURATE CREATININE CLEARANCE IN PREDICTING GLOMERULAR FILTRATION RATE . ESTIMATED GFR I S NOT APPLICABLE FOR DIALYSIS PATIEN TS. Specimen slightly [id number] 04:20:00 Test Item Value Reference Range Interpretation Comments PHOSPHORUS (BEAKER) (test code = 2.9 mg/dL 2.3-4.7 604) [id number] 04:20:00 Test Item Value Reference Range Interpretation Comments MAGNESIUM (BEAKER) (test code = 1.7 mg/dL 1.6-2.6 627) IRON, [id number] 04:19:00 Test Item Value Reference Range Interpretation Comments IRON (BEAKER) (test code = 547) 23 ug/dL 40-160 L IRON, TIBC, % SAT. (WITHOUT FERRITIN)2016-10-20 04:19:00 Test Item Value Reference Range Interpretation Comments IRON (BEAKER) (test code = 547) 23 ug/dL 40-160 L TOTAL IRON BINDING CAPACITY 186 ug/dL 250-450 L (BEAKER) (test code = 769) IRON % SATURATION (2) (BEAKER) 12 % 20-55 L (test code = 2590) CALCIUM, [id number] 04:07:00 Test Item Value Reference Range Interpretation Comments CALCIUM IONIZED (BEAKER) (test 1.11 mmol/L 1.12-1.27 L code = 698) PH, BLOOD (BEAKER) (test code = 7.40 1810) OXYGEN SATURATION, [id number] 04:02:00 Test Item Value Reference Range Interpretation Comments O2 SATURATION (MEASURED) (BEAKER) 74.1 % (test code = 1455) CBC (HEMOGRAM ONLY)2016-10-20 03:53:00 Test Item Value Reference Range Interpretation Comments WHITE BLOOD CELL COUNT (BEAKER) 10.4 K/ L 3.5-10.5 (test code = 775) RED BLOOD CELL COUNT (BEAKER) 2.97 M/ L 4.63-6.08 L (test code = 761) HEMOGLOBIN (BEAKER) (test code = 8.4 GM/DL 13.7-17.5 L 410) HEMATOCRIT (BEAKER) (test code = 25.1 % 40.1-51.0 L 411) MEAN CORPUSCULAR VOLUME (BEAKER) 84.5 fL 79.0-92.2 (test code = 753) MEAN CORPUSCULAR HEMOGLOBIN 28.3 pg 25.7-32.2 (BEAKER) (test code = 751) MEAN CORPUSCULAR HEMOGLOBIN CONC 33.5 GM/DL 32.3-36.5 (BEAKER) (test code = 752) RED CELL DISTRIBUTION WIDTH 15.3 % 11.6-14.4 H (BEAKER) (test code = 412) PLATELET COUNT (BEAKER) (test 160 K/CU MM 150-450 code = 756) MEAN PLATELET VOLUME (BEAKER) 9.0 fL 9.4-12.4 L (test code = 754) NUCLEATED RED BLOOD CELLS 0 /100 WBC 0-0 (BEAKER) (test code = 413) POCT-GLUCOSE [id number] 00:24:00 Test Item Value Reference Range Interpretation Comments POC-GLUCOSE METER 164 mg/dL 70-110 H TESTED AT [facility] 6720 (BEAKER) (test code = [place] 1538) [address] POCT-GLUCOSE [id number] 17:07:00 Test Item Value Reference Range Interpretation Comments POC-GLUCOSE METER 279 mg/dL 70-110 H TESTED AT [facility] 6720 [facility] (test code = NERY De Jesus [facility] 1538) [address] OXYGEN SATURATION, [id number] 15:53:00 Test Item Value Reference Range Interpretation Comments O2 SATURATION (MEASURED) (BEAKER) 53.1 % (test code = 1455) Mixed venous.POCT-GLUCOSE [id number] 11:36:00 Test Item Value Reference Range Interpretation Comments POC-GLUCOSE METER 268 mg/dL 70-110 H TESTED AT [facility] 6720 [facility] (test code = NERY De Jesus [facility] 1538) [address] PLATELET AGGREGATION: FUNCTION [id number] 09:16:00 Test Item Value Reference Range Interpretation Comments WEAK ADP 79 % 60-91 RESULT(BEAKER) (test code = 2135) PLATELET FUNCTION 60-100% indicates SCREEN INTERP (BEAKER) normal platelet (test code = 2173) function [id number] Qian Burns MD [facility] (test code = (electronic signature) 7389) PLATELET COUNT AGG 147 K/CU MM 150-450 L (BEAKER) (test code = 2656) [id number] 04:53:00 Test Item Value Reference Range Interpretation Comments MAGNESIUM (BEAKER) (test code = 1.8 mg/dL 1.6-2.6 627) BASIC METABOLIC [id number] 04:53:00 Test Item Value Reference Range Interpretation Comments SODIUM (BEAKER) 133 meq/L 136-145 L (test code = 381) POTASSIUM (BEAKER) 3.8 meq/L 3.5-5.1 (test code = 379) CHLORIDE (BEAKER) 100 meq/L 98-107 (test code = 382) CO2 (BEAKER) (test 26 meq/L 22-29 code = 355) BLOOD UREA NITROGEN 49 mg/dL 7-21 H (BEAKER) (test code = 354) CREATININE (BEAKER) 1.17 mg/dL 0.57-1.25 (test code = 358) GLUCOSE RANDOM 185 mg/dL 70-105 H (BEAKER) (test code = 652) CALCIUM (BEAKER) 8.2 mg/dL 8.4-10.2 L (test code = 697) EGFR (BEAKER) (test 62 mL/min/1.73 ESTIMA MARIA DOLORES GFR IS code = 1092) sq m NOT ACCURATE CREATININE CLEARANCE IN PREDICTING GLOMERULAR FILTRATION RATE . ESTIMATED GFR I S NOT APPLICABLE FOR DIALYSIS PATIEN TS. Specimen slightly ictericLACTIC ACID, ARTERIAL, WHOLE [id number] 04:43:00 Test Item Value Reference Range Interpretation Comments LACTATE BLOOD ARTERIAL (2) 0.6 mmol/L 0.5-2.2 (BEAKER) (test code = 2874) Effective 07/25/2015: Units/Reference Range ChangeNew: 0.5-2.2 mmol/L Previous: 5- 20 mg/dLSpecimen slightly ictericCBC W/PLT COUNT & AUTO DIFFERENTIAL 2016-10-19 04:07:00 Test Item Value Reference Range Interpretation Comments WHITE BLOOD CELL COUNT (BEAKER) 9.6 K/ L 3.5-10.5 (test code = 775) RED BLOOD CELL COUNT (BEAKER) 2.79 M/ L 4.63-6.08 L (test code = 761) HEMOGLOBIN (BEAKER) (test code = 7.8 GM/DL 13.7-17.5 L 410) HEMATOCRIT (BEAKER) (test code = 23.8 % 40.1-51.0 L 411) MEAN CORPUSCULAR VOLUME (BEAKER) 85.3 fL 79.0-92.2 (test code = 753) MEAN CORPUSCULAR HEMOGLOBIN 28.0 pg 25.7-32.2 (BEAKER) (test code = 751) MEAN CORPUSCULAR HEMOGLOBIN CONC 32.8 GM/DL 32.3-36.5 (BEAKER) (test code = 752) RED CELL DISTRIBUTION WIDTH 15.4 % 11.6-14.4 H (BEAKER) (test code = 412) PLATELET COUNT (BEAKER) (test 143 K/CU MM 150-450 L code = 756) MEAN PLATELET VOLUME (BEAKER) 9.8 fL 9.4-12.4 (test code = 754) NUCLEATED RED BLOOD CELLS 0 /100 WBC 0-0 (BEAKER) (test code = 413) NEUTROPHILS RELATIVE PERCENT 78 % (BEAKER) (test code = 429) LYMPHOCYTES RELATIVE PERCENT 6 % (BEAKER) (test code = 430) MONOCYTES RELATIVE PERCENT 12 % (BEAKER) (test code = 431) EOSINOPHILS RELATIVE PERCENT 2 % (BEAKER) (test code = 432) BASOPHILS RELATIVE PERCENT 0 % (BEAKER) (test code = 437) NEUTROPHILS ABSOLUTE COUNT 7.46 K/ L 1.78-5.38 H (BEAKER) (test code = 670) LYMPHOCYTES ABSOLUTE COUNT 0.61 K/ L 1.32-3.57 L (BEAKER) (test code = 414) MONOCYTES ABSOLUTE COUNT (BEAKER) 1.19 K/ L 0.30-0.82 H (test code = 415) EOSINOPHILS ABSOLUTE COUNT 0.23 K/ L 0.04-0.54 (BEAKER) (test code = 416) BASOPHILS ABSOLUTE COUNT (BEAKER) 0.03 K/ L 0.01-0.08 (test code = 417) IMMATURE GRANULOCYTES-RELATIVE 1 % 0-1 PERCENT (BEAKER) (test code = 2801) HEMOGLOBIN-STAT [id number] 00:13:00 Test Item Value Reference Range Interpretation Comments HEMOGLOBIN (BEAKER) (test code = 8.3 g/dL 13.0-16.8 L 410) HEMATOCRIT-STAT [id number] 00:13:00 Test Item Value Reference Range Interpretation Comments HEMATOCRIT (BEAKER) (test code = 411) 24.0 % 40.0-50.0 L OXYGEN SATURATION, [id number] 00:10:00 Test Item Value Reference Range Interpretation Comments O2 SATURATION (MEASURED) (BEAKER) 63.2 % (test code = 1455) POCT-GLUCOSE [id number] 23:19:00 Test Item Value Reference Range Interpretation Comments POC-GLUCOSE METER 200 mg/dL 70-110 H TESTED AT [facility] 6720 (BEAKER) (test code = [place] 1538) [address] LACTIC ACID, ARTERIAL, WHOLE [id number] 18:09:00 Test Item Value Reference Range Interpretation Comments LACTATE BLOOD ARTERIAL (2) 1.2 mmol/L 0.5-2.2 (BEAKER) (test code = 2874) Effective 07/25/2015: Units/Reference Range ChangeNew: 0.5-2.2 mmol/L Previous: 5- 20 mg/dLSpecimen slightly ictericOXYGEN SATURATION, [id number] 17:53:00 Test Item Value Reference Range Interpretation Comments O2 SATURATION (MEASURED) (BEAKER) 50.9 % (test code = 1455) POCT-GLUCOSE [id number] 17:48:00 Test Item Value Reference Range Interpretation Comments POC-GLUCOSE METER 149 mg/dL 70-110 H TESTED AT [facility] 6720 (BEAKER) (test code = [facility] [place] 1538) [address] OXYGEN SATURATION, [id number] 14:36:00 Test Item Value Reference Range Interpretation Comments O2 SATURATION (MEASURED) (BEAKER) 39.0 % (test code = 1455) Please get from the central [facility] METABOLIC [id number] 13:05:00 Test Item Value Reference Range Interpretation Comments SODIUM (BEAKER) 134 meq/L 136-145 L (test code = 381) POTASSIUM (BEAKER) 4.0 meq/L 3.5-5.1 (test code = 379) CHLORIDE (BEAKER) 101 meq/L 98-107 (test code = 382) CO2 (BEAKER) (test 25 meq/L - code = 355) BLOOD UREA NITROGEN 47 mg/dL 7-21 H (BEAKER) (test code = 354) CREATININE (BEAKER) 1.22 mg/dL 0.57-1.25 (test code = 358) GLUCOSE RANDOM 287 mg/dL 70-105 H (BEAKER) (test code = 652) CALCIUM (BEAKER) 8.5 mg/dL 8.4-10.2 (test code = 697) EGFR (BEAKER) (test 59 mL/min/1.73 ESTIMA MARIA DOLORES GFR IS code = 1092) sq m NOT ACCURATE CREATININE CLEARANCE IN PREDICTING GLOMERULAR FILTRATION RATE . ESTIMATED GFR I S NOT APPLICABLE FOR DIALYSIS PATIEN TS. Specimen slightly ictericOXYGEN SATURATION, [id number] 12:39:00 Test Item Value Reference Range Interpretation Comments O2 SATURATION (MEASURED) (BEAKER) 95.3 % (test code = 1455) POCT-GLUCOSE [id number] 10:27:00 Test Item Value Reference Range Interpretation Comments POC-GLUCOSE METER 134 mg/dL 70-110 H TESTED AT [facility] 6720 (BEAKER) (test code = [facility] [place] 1538) [address] POCT-GLUCOSE [id number] 10:27:00 Test Item Value Reference Range Interpretation Comments POC-GLUCOSE METER 180 mg/dL 70-110 H TESTED AT [facility] 6720 (BEAKER) (test code = NERY De Jesus [facility] 1538) [address] POCT-GLUCOSE [id number] 10:27:00 Test Item Value Reference Range Interpretation Comments POC-GLUCOSE METER 88 mg/dL 70-110 TESTED AT [facility] 6720 (BEAKER) (test code = NERY De Jesus [facility] [address] 1538) CBC W/PLT COUNT & AUTO [id number] 04:40:00 Test Item Value Reference Range Interpretation Comments WHITE BLOOD CELL COUNT (BEAKER) 12.1 K/ L 3.5-10.5 H (test code = 775) RED BLOOD CELL COUNT (BEAKER) 2.80 M/ L 4.63-6.08 L (test code = 761) HEMOGLOBIN (BEAKER) (test code = 7.9 GM/DL 13.7-17.5 L 410) HEMATOCRIT (BEAKER) (test code = 23.8 % 40.1-51.0 L 411) MEAN CORPUSCULAR VOLUME (BEAKER) 85.0 fL 79.0-92.2 (test code = 753) MEAN CORPUSCULAR HEMOGLOBIN 28.2 pg 25.7-32.2 (BEAKER) (test code = 751) MEAN CORPUSCULAR HEMOGLOBIN CONC 33.2 GM/DL 32.3-36.5 (BEAKER) (test code = 752) RED CELL DISTRIBUTION WIDTH 16.0 % 11.6-14.4 H (BEAKER) (test code = 412) PLATELET COUNT (BEAKER) (test 136 K/CU MM 150-450 L code = 756) MEAN PLATELET VOLUME (BEAKER) 10.0 fL 9.4-12.4 (test code = 754) NUCLEATED RED BLOOD CELLS 0 /100 WBC 0-0 (BEAKER) (test code = 413) NEUTROPHILS RELATIVE PERCENT 81 % (BEAKER) (test code = 429) LYMPHOCYTES RELATIVE PERCENT 5 % (BEAKER) (test code = 430) MONOCYTES RELATIVE PERCENT 12 % (BEAKER) (test code = 431) EOSINOPHILS RELATIVE PERCENT 1 % (BEAKER) (test code = 432) BASOPHILS RELATIVE PERCENT 0 % (BEAKER) (test code = 437) NEUTROPHILS ABSOLUTE COUNT 9.88 K/ L 1.78-5.38 H (BEAKER) (test code = 670) LYMPHOCYTES ABSOLUTE COUNT 0.54 K/ L 1.32-3.57 L (BEAKER) (test code = 414) MONOCYTES ABSOLUTE COUNT (BEAKER) 1.46 K/ L 0.30-0.82 H (test code = 415) EOSINOPHILS ABSOLUTE COUNT 0.14 K/ L 0.04-0.54 (BEAKER) (test code = 416) BASOPHILS ABSOLUTE COUNT (BEAKER) 0.02 K/ L 0.01-0.08 (test code = 417) IMMATURE GRANULOCYTES-RELATIVE 1 % 0-1 PERCENT (BEAKER) (test code = 2801) [id number] 04:26:00 Test Item Value Reference Range Interpretation Comments PHOSPHORUS (BEAKER) (test code = 4.5 mg/dL 2.3-4.7 604) [id number] 04:26:00 Test Item Value Reference Range Interpretation Comments MAGNESIUM (BEAKER) (test code = 2.2 mg/dL 1.6-2.6 627) BASIC METABOLIC [id number] 04:26:00 Test Item Value Reference Range Interpretation Comments SODIUM (BEAKER) 136 meq/L 136-145 (test code = 381) POTASSIUM (BEAKER) 4.3 meq/L 3.5-5.1 (test code = 379) CHLORIDE (BEAKER) 103 meq/L 98-107 (test code = 382) CO2 (BEAKER) (test 25 meq/L 22-29 code = 355) BLOOD UREA NITROGEN 46 mg/dL 7-21 H (BEAKER) (test code = 354) CREATININE (BEAKER) 1.09 mg/dL 0.57-1.25 (test code = 358) GLUCOSE RANDOM 154 mg/dL 70-105 H (BEAKER) (test code = 652) CALCIUM (BEAKER) 8.9 mg/dL 8.4-10.2 (test code = 697) EGFR (BEAKER) (test 67 mL/min/1.73 ESTIMA MARIA DOLORES GFR IS code = 1092) sq m NOT ACCURATE CREATININE CLEARANCE IN PREDICTING GLOMERULAR FILTRATION RATE . ESTIMATED GFR I S NOT APPLICABLE FOR DIALYSIS PATIEN TS. Specimen slightly ictericLACTIC ACID, ARTERIAL, WHOLE [id number] 04:18:00 Test Item Value Reference Range Interpretation Comments LACTATE BLOOD ARTERIAL (2) 0.6 mmol/L 0.5-2.2 (BEAKER) (test code = 2874) Effective 07/25/2015: Units/Reference Range ChangeNew: 0.5-2.2 mmol/L Previous: 5- 20 mg/dLSpecimen slightly ictericCALCIUM, [id number] 04:12:00 Test Item Value Reference Range Interpretation Comments CALCIUM IONIZED (BEAKER) (test 1.16 mmol/L 1.12-1.27 code = 698) PH, BLOOD (BEAKER) (test code = 7.44 1810) POTASSIUM-STAT [id number] 21:18:00 Test Item Value Reference Range Interpretation Comments POTASSIUM (BEAKER) (test code = 3.9 meq/L 3.6-5.5 379) CALCIUM, [id number] 21:18:00 Test Item Value Reference Range Interpretation Comments CALCIUM IONIZED (BEAKER) (test 1.21 mmol/L 1.12-1.27 code = 698) PH, BLOOD (BEAKER) (test code = 7.40 1810) SODIUM NA-STAT [id number] 21:18:00 Test Item Value Reference Range Interpretation Comments SODIUM (BEAKER) (test code = 381) 132 meq/L 135-148 L POCT-GLUCOSE [id number] 20:19:00 Test Item Value Reference Range Interpretation Comments POC-GLUCOSE METER 150 mg/dL 70-110 H TESTED AT [place] [id number] ([facility]) (test code = [place] [address]) [id number] POCT-GLUCOSE [id number] 20:19:00 Test Item Value Reference Range Interpretation Comments POC-GLUCOSE METER 182 mg/dL 70-110 H TESTED AT [place] [address] ([facility]) (test code = [place] [address]) [id number] POCT-GLUCOSE [id number] 16:29:00 Test Item Value Reference Range Interpretation Comments POC-GLUCOSE METER 97 mg/dL 70-110 TESTED AT [place] [address] ([facility]) (test code = [place] [facility] [address]38) CBC W/PLT COUNT & AUTO [id number] 13:55:00 Test Item Value Reference Range Interpretation Comments WHITE BLOOD CELL COUNT (BEAKER) 12.1 K/ L 3.5-10.5 H (test code = 775) RED BLOOD CELL COUNT (BEAKER) 2.75 M/ L 4.63-6.08 L (test code = 761) HEMOGLOBIN (BEAKER) (test code = 7.8 GM/DL 13.7-17.5 L 410) HEMATOCRIT (BEAKER) (test code = 23.3 % 40.1-51.0 L 411) MEAN CORPUSCULAR VOLUME (BEAKER) 84.7 fL 79.0-92.2 (test code = 753) MEAN CORPUSCULAR HEMOGLOBIN 28.4 pg 25.7-32.2 (BEAKER) (test code = 751) MEAN CORPUSCULAR HEMOGLOBIN CONC 33.5 GM/DL 32.3-36.5 (BEAKER) (test code = 752) RED CELL DISTRIBUTION WIDTH 16.0 % 11.6-14.4 H (BEAKER) (test code = 412) PLATELET COUNT (BEAKER) (test 127 K/CU MM 150-450 L code = 756) MEAN PLATELET VOLUME (BEAKER) 10.7 fL 9.4-12.4 (test code = 754) NUCLEATED RED BLOOD CELLS 0 /100 WBC 0-0 (BEAKER) (test code = 413) NEUTROPHILS RELATIVE PERCENT 86 % (BEAKER) (test code = 429) LYMPHOCYTES RELATIVE PERCENT 3 % (BEAKER) (test code = 430) MONOCYTES RELATIVE PERCENT 10 % (BEAKER) (test code = 431) EOSINOPHILS RELATIVE PERCENT 0 % (BEAKER) (test code = 432) BASOPHILS RELATIVE PERCENT 0 % (BEAKER) (test code = 437) NEUTROPHILS ABSOLUTE COUNT 10.43 K/ L 1.78-5.38 H (BEAKER) (test code = 670) LYMPHOCYTES ABSOLUTE COUNT 0.33 K/ L 1.32-3.57 L (BEAKER) (test code = 414) MONOCYTES ABSOLUTE COUNT (BEAKER) 1.25 K/ L 0.30-0.82 H (test code = 415) EOSINOPHILS ABSOLUTE COUNT 0.05 K/ L 0.04-0.54 (BEAKER) (test code = 416) BASOPHILS ABSOLUTE COUNT (BEAKER) 0.02 K/ L 0.01-0.08 (test code = 417) IMMATURE GRANULOCYTES-RELATIVE 1 % 0-1 PERCENT (BEAKER) (test code = 2801) (MANUAL DIFFERENTIAL)[id number] 13:55:00 Test Item Value Reference Range Interpretation Comments NEUTROPHILS - REL (DIFF) (BEAKER) 95 % (test code = 1359) LYMPHOCYTES - REL (DIFF) (BEAKER) 2 % (test code = 1360) METAMYELOCYTES-REL (DIFF) (BEAKER) 1 % 0-0 H (test code = 258) MYELOCYTES-REL (DIFF) (BEAKER) 1 % 0-0 H (test code = 1594) BANDS - REL (DIFF) (BEAKER) (test 1 % 0-10 code = 1348) NEUTROPHILS - ABS (DIFF) (BEAKER) 11.50 K/ L 1.80-8.00 H (test code = 1365) LYMPHOCYTES - ABS (DIFF) (BEAKER) 0.24 K/ L 1.48-4.50 L (test code = 1366) METAMYELOCTYES - ABS (DIFF) 0.12 K/ L 0.00-0.00 H (BEAKER) (test code = 261) BANDS-ABS (DIFF) (BEAKER) (test 0.1 K/ L 0.0-0.8 code = 1349) MYELOCYTES-ABS (DIFF) (BEAKER) 0.12 K/ L 0.00-0.00 H (test code = 1593) TOTAL COUNTED (BEAKER) (test code 100 = 1351) BANDS + SEGMENTED NEUTROPHILS 11.62 (BEAKER) (test code = 1352) WBC MORPHOLOGY (BEAKER) (test code Normal = 487) PLT MORPHOLOGY (BEAKER) (test code Normal = 486) RBC MORPHOLOGY (BEAKER) (test code Normal = 762) POCT-GLUCOSE [id number] 06:04:00 Test Item Value Reference Range Interpretation Comments POC-GLUCOSE METER 215 mg/dL 70-110 H TESTED AT [facility] 6720 (BEAKER) (test code = NERY [place] 1538) [address] LACTIC ACID, ARTERIAL, WHOLE [id number] 04:42:00 Test Item Value Reference Range Interpretation Comments LACTATE BLOOD ARTERIAL (2) 1.0 mmol/L 0.5-2.2 (BEAKER) (test code = 2874) Effective 07/25/2015: Units/Reference Range ChangeNew: 0.5-2.2 mmol/L Previous: 5- 20 mg/dLSpecimen slightly [id number] 04:41:00 Test Item Value Reference Range Interpretation Comments PHOSPHORUS (BEAKER) (test code = 5.3 mg/dL 2.3-4.7 H 604) [id number] 04:41:00 Test Item Value Reference Range Interpretation Comments MAGNESIUM (BEAKER) (test code = 2.2 mg/dL 1.6-2.6 627) BASIC METABOLIC [id number] 04:41:00 Test Item Value Reference Range Interpretation Comments SODIUM (BEAKER) 137 meq/L 136-145 (test code = 381) POTASSIUM (BEAKER) 5.1 meq/L 3.5-5.1 (test code = 379) CHLORIDE (BEAKER) 105 meq/L 98-107 (test code = 382) CO2 (BEAKER) (test 22 meq/L 22-29 code = 355) BLOOD UREA NITROGEN 38 mg/dL 7-21 H (BEAKER) (test code = 354) CREATININE (BEAKER) 1.03 mg/dL 0.57-1.25 (test code = 358) GLUCOSE RANDOM 201 mg/dL 70-105 H (BEAKER) (test code = 652) CALCIUM (BEAKER) 8.8 mg/dL 8.4-10.2 (test code = 697) EGFR (BEAKER) (test 72 mL/min/1.73 ESTIMA MARIA DOLORES GFR IS code = 1092) sq m NOT ACCURATE CREATININE CLEARANCE IN PREDICTING GLOMERULAR FILTRATION RATE . ESTIMATED GFR I S NOT APPLICABLE FOR DIALYSIS PATIEN TS. Specimen slightly ictericCALCIUM, [id number] 04:05:00 Test Item Value Reference Range Interpretation Comments CALCIUM IONIZED (BEAKER) (test 1.01 mmol/L 1.12-1.27 L code = 698) PH, BLOOD (BEAKER) (test code = 7.40 1810) OXYGEN SATURATION, [id number] 04:04:00 Test Item Value Reference Range Interpretation Comments O2 SATURATION (MEASURED) (BEAKER) 76.6 % (test code = 1455) POCT-GLUCOSE [id number] 22:05:00 Test Item Value Reference Range Interpretation Comments POC-GLUCOSE METER 149 mg/dL 70-110 H TESTED AT [facility] 6720 (BEAKER) (test code = NERY De Jesus [facility] 1538) [id number] POCT-GLUCOSE [id number] 22:05:00 Test Item Value Reference Range Interpretation Comments POC-GLUCOSE METER 155 mg/dL 70-110 H [facility] 6720 [facility] (test code = NERY De Jesus [place] 1538) [address] POCT-GLUCOSE [id number] 22:05:00 Test Item Value Reference Range Interpretation Comments POC-GLUCOSE METER 132 mg/dL 70-110 H [facility] 6720 [facility] (test code = NERY De Jesus [facility] 1538) [address] [id number] 21:34:00 Test Item Value Reference Range Interpretation Comments MAGNESIUM (BEAKER) (test code = 2.0 mg/dL 1.6-2.6 627) POTASSIUM-STAT [id number] 21:22:00 Test Item Value Reference Range Interpretation Comments POTASSIUM (BEAKER) (test code = 4.7 meq/L 3.6-5.5 379) HGB/HCT (H&H) - STAT [id number] 21:22:00 Test Item Value Reference Range Interpretation Comments HEMOGLOBIN (BEAKER) (test code = 9.0 g/dL 13.0-16.8 L 410) HEMATOCRIT (BEAKER) (test code = 26.0 % 40.0-50.0 L 411) CALCIUM, [id number] 21:21:00 Test Item Value Reference Range Interpretation Comments CALCIUM IONIZED (BEAKER) (test 1.25 mmol/L 1.12-1.27 code = 698) PH, BLOOD (BEAKER) (test code = 7.41 1810) GLUCOSE-STAT [id number] 17:45:00 Test Item Value Reference Range Interpretation Comments GLUCOSE RANDOM (BEAKER) (test code 109 mg/dL 70-110 = 652) BLOOD GAS, [id number] 17:45:00 Test Item Value Reference Range Interpretation Comments PH ARTERIAL (BEAKER) (test code = 7.42 7.35-7.45 383) PCO2 ARTERIAL (BEAKER) (test code 42 mmHg 35-45 = 384) PO2 ARTERIAL (BEAKER) (test code = 138 mmHg 80-90 H 385) O2 SATURATION ARTERIAL (BEAKER) 98.8 % 96.0-97.0 H (test code = 386) HCO3 ARTERIAL (BEAKER) (test code 26 mmol/L 21-29 = 388) BASE EXCESS ARTERIAL (BEAKER) 1.9 mmol/L -2.0-3.0 (test code = 387) PATIENT TEMPERATURE (BEAKER) (test 37.3 C code = 1818) FIO2 (BEAKER) (test code = 1819) 40.0 % [id number] 17:07:00 Test Item Value Reference Range Interpretation Comments POTASSIUM (BEAKER) (test code = 4.9 meq/L 3.5-5.1 379) [id number] 17:07:00 Test Item Value Reference Range Interpretation Comments MAGNESIUM (BEAKER) (test code = 1.8 mg/dL 1.6-2.6 627) [id number] 17:07:00 Test Item Value Reference Range Interpretation Comments GLUCOSE RANDOM (BEAKER) (test code 104 mg/dL 70-105 = 652) Effective 02/07/2014: Reference Range Change-Adult onlyNew: 70-105 Previous: 70-110CBC W/PLT COUNT & AUTO [id number] 17:00:00 Test Item Value Reference Range Interpretation Comments WHITE BLOOD CELL COUNT (BEAKER) 13.1 K/ L 3.5-10.5 H (test code = 775) RED BLOOD CELL COUNT (BEAKER) 3.41 M/ L 4.63-6.08 L (test code = 761) HEMOGLOBIN (BEAKER) (test code = 9.5 GM/DL 13.7-17.5 L 410) HEMATOCRIT (BEAKER) (test code = 28.1 % 40.1-51.0 L 411) MEAN CORPUSCULAR VOLUME (BEAKER) 82.4 fL 79.0-92.2 (test code = 753) MEAN CORPUSCULAR HEMOGLOBIN 27.9 pg 25.7-32.2 (BEAKER) (test code = 751) MEAN CORPUSCULAR HEMOGLOBIN CONC 33.8 GM/DL 32.3-36.5 (BEAKER) (test code = 752) RED CELL DISTRIBUTION WIDTH 15.3 % 11.6-14.4 H (BEAKER) (test code = 412) PLATELET COUNT (BEAKER) (test 171 K/CU MM 150-450 code = 756) MEAN PLATELET VOLUME (BEAKER) 10.8 fL 9.4-12.4 (test code = 754) NUCLEATED RED BLOOD CELLS 0 /100 WBC 0-0 (BEAKER) (test code = 413) IMMATURE GRANULOCYTES-RELATIVE 0 % 0-1 PERCENT (BEAKER) (test code = 2801) (MANUAL DIFFERENTIAL)[id number] 17:00:00 Test Item Value Reference Range Interpretation Comments NEUTROPHILS - REL (DIFF) (BEAKER) 82 % (test code = 1359) LYMPHOCYTES - REL (DIFF) (BEAKER) 5 % (test code = 1360) MONOCYTES - REL (DIFF) (BEAKER) 1 % (test code = 1361) EOSINOPHILS - REL (DIFF) (BEAKER) 5 % (test code = 1362) BANDS - REL (DIFF) (BEAKER) (test 7 % 0-10 code = 1348) NEUTROPHILS - ABS (DIFF) (BEAKER) 10.74 K/ L 1.80-8.00 H (test code = 1365) LYMPHOCYTES - ABS (DIFF) (BEAKER) 0.66 K/ L 1.48-4.50 L (test code = 1366) MONOCYTES - ABS (DIFF) (BEAKER) 0.13 K/ L 0.00-1.30 (test code = 1367) EOSINOPHILS - ABS (DIFF) (BEAKER) 0.66 K/ L 0.00-0.50 H (test code = 1368) BANDS-ABS (DIFF) (BEAKER) (test 0.9 K/ L 0.0-0.8 H code = 1349) TOTAL COUNTED (BEAKER) (test code 100 = 1351) BANDS + SEGMENTED NEUTROPHILS 11.66 (BEAKER) (test code = 1352) WBC MORPHOLOGY (BEAKER) (test code Normal = 487) PLT MORPHOLOGY (BEAKER) (test code Normal = 486) RBC MORPHOLOGY (BEAKER) (test code Normal = 762) POCT-GLUCOSE [id number] 16:29:00 Test Item Value Reference Range Interpretation Comments POC-GLUCOSE METER 85 mg/dL 70-110 TESTED AT [place] [address] ([facility]) (test code = [place] [address] 1538) POCT-GLUCOSE [id number] 16:29:00 Test Item Value Reference Range Interpretation Comments POC-GLUCOSE METER 82 mg/dL 70-110 TESTED AT [place] [address] ([facility]) (test code = NERY De Jesus [facility] [address] 1538) POCT-GLUCOSE [id number] 10:19:00 Test Item Value Reference Range Interpretation Comments POC-GLUCOSE METER 90 mg/dL 70-110 TESTED AT [place] [address] ([facility]) (test code = NERY De Jesus [facility] [address] 1538) POCT-GLUCOSE [id number] 09:16:00 Test Item Value Reference Range Interpretation Comments POC-GLUCOSE METER 128 mg/dL 70-110 H TESTED AT [place] [address] ([facility]) (test code = NERY De Jesus [facility] 1538) [address] CALCIUM, [id number] 06:15:00 Test Item Value Reference Range Interpretation Comments CALCIUM IONIZED ([facility]) (test 1.28 mmol/L 1.12-1.27 H code = 698) PH, BLOOD ([facility]) (test code = 7.38 1810) [id number] 05:48:00 Test Item Value Reference Range Interpretation Comments ACTIVATED CLOTTING TIME 131 sec TEST ED AT [place] [address] ([facility]) (test code = [place] [address]) [address] [id number] 05:48:00 Test Item Value Reference Range Interpretation Comments ACTIVATED CLOTTING TIME 505 sec TEST ED AT [place] [address] ([facility]) (test code = NERY De Jesus [facility] 441) [address] [id number] 05:48:00 Test Item Value Reference Range Interpretation Comments ACTIVATED CLOTTING TIME 527 sec TEST ED AT [place] [address] ([facility]) (test code = NERY De Jesus [place] 441) [address] [id number] 05:48:00 Test Item Value Reference Range Interpretation Comments ACTIVATED CLOTTING TIME 670 sec TEST ED AT [place] [address] ([facility]) (test code = NERY De Jesus [place] 441) [address] [id number] 05:48:00 Test Item Value Reference Range Interpretation Comments ACTIVATED CLOTTING TIME > sec OUTS LAUREN MEASURING (BEAKER) (test code = CIARA OHARA AT [facility] 6745 [address]) [place] [address] [id number] 05:40:00 Test Item Value Reference Range Interpretation Comments PHOSPHORUS (BEAKER) (test code = 4.0 mg/dL 2.3-4.7 604) [id number] 05:40:00 Test Item Value Reference Range Interpretation Comments MAGNESIUM (BEAKER) (test code = 1.9 mg/dL 1.6-2.6 627) BASIC METABOLIC [id number] 05:40:00 Test Item Value Reference Range Interpretation Comments SODIUM (BEAKER) 141 meq/L 136-145 (test code = 381) POTASSIUM (BEAKER) 4.6 meq/L 3.5-5.1 (test code = 379) CHLORIDE (BEAKER) 110 meq/L 98-107 H (test code = 382) CO2 (BEAKER) (test 24 meq/L 22-29 code = 355) BLOOD UREA NITROGEN 37 mg/dL 7-21 H (BEAKER) (test code = 354) CREATININE (BEAKER) 1.06 mg/dL 0.57-1.25 (test code = 358) GLUCOSE RANDOM 110 mg/dL 70-105 H (BEAKER) (test code = 652) CALCIUM (BEAKER) 9.4 mg/dL 8.4-10.2 (test code = 697) EGFR (BEAKER) (test 69 mL/min/1.73 ESTIMA MARIA DOLORES GFR IS code = 1092) sq m NOT ACCURATE CREATININE CLEARANCE IN PREDICTING GLOMERULAR FILTRATION RATE . ESTIMATED GFR I S NOT APPLICABLE FOR DIALYSIS PATIEN TS. Specimen slightly ictericBLOOD GAS, [id number] 05:05:00 Test Item Value Reference Range Interpretation Comments PH ARTERIAL (BEAKER) (test code = 7.36 7.35-7.45 383) PCO2 ARTERIAL (BEAKER) (test code 45 mmHg 35-45 = 384) PO2 ARTERIAL (BEAKER) (test code 171 mmHg 80-90 H = 385) O2 SATURATION ARTERIAL (BEAKER) 99.1 % 96.0-97.0 H (test code = 386) HCO3 ARTERIAL (BEAKER) (test code 25 mmol/L 21-29 = 388) BASE EXCESS ARTERIAL (BEAKER) -0.8 mmol/L -2.0-3.0 (test code = 387) PATIENT TEMPERATURE (BEAKER) 37.0 C (test code = 1818) FIO2 (BEAKER) (test code = 1819) 21.0 % LACTIC ACID, ARTERIAL, WHOLE [id number] 05:02:00 Test Item Value Reference Range Interpretation Comments LACTATE BLOOD ARTERIAL (2) 2.6 mmol/L 0.5-2.2 H (BEAKER) (test code = 2874) Effective 07/25/2015: Units/Reference Range ChangeNew: 0.5-2.2 mmol/L Previous: 5- 20 mg/dLSpecimen slightly ictericOXYGEN SATURATION, [id number] 05:01:00 Test Item Value Reference Range Interpretation Comments O2 SATURATION (MEASURED) (BEAKER) 71.2 % (test code = 1455) POCT-GLUCOSE [id number] 22:16:00 Test Item Value Reference Range Interpretation Comments POC-GLUCOSE METER 136 mg/dL 70-110 H TESTED AT [facility] 6720 ([facility]) (test code = [place] 1538) [address] CBC W/PLT COUNT & AUTO [id number] 20:16:00 Test Item Value Reference Range Interpretation Comments WHITE BLOOD CELL COUNT (BEAKER) 12.0 K/ L 3.5-10.5 H (test code = 775) RED BLOOD CELL COUNT (BEAKER) 3.15 M/ L 4.63-6.08 L (test code = 761) HEMOGLOBIN (BEAKER) (test code = 9.0 GM/DL 13.7-17.5 L 410) HEMATOCRIT (BEAKER) (test code = 27.2 % 40.1-51.0 L 411) MEAN CORPUSCULAR VOLUME (BEAKER) 86.3 fL 79.0-92.2 (test code = 753) MEAN CORPUSCULAR HEMOGLOBIN 28.6 pg 25.7-32.2 (BEAKER) (test code = 751) MEAN CORPUSCULAR HEMOGLOBIN CONC 33.1 GM/DL 32.3-36.5 (BEAKER) (test code = 752) RED CELL DISTRIBUTION WIDTH 14.8 % 11.6-14.4 H (BEAKER) (test code = 412) PLATELET COUNT (BEAKER) (test 140 K/CU MM 150-450 L code = 756) MEAN PLATELET VOLUME (BEAKER) 9.9 fL 9.4-12.4 (test code = 754) NUCLEATED RED BLOOD CELLS 0 /100 WBC 0-0 (BEAKER) (test code = 413) IMMATURE GRANULOCYTES-RELATIVE 0 % 0-1 PERCENT (BEAKER) (test code = 2801) (MANUAL DIFFERENTIAL)[id number] 20:16:00 Test Item Value Reference Range Interpretation Comments NEUTROPHILS - REL (DIFF) (BEAKER) 80 % (test code = 1359) LYMPHOCYTES - REL (DIFF) (BEAKER) 4 % (test code = 1360) MONOCYTES - REL (DIFF) (BEAKER) 7 % (test code = 1361) BANDS - REL (DIFF) (BEAKER) (test 9 % 0-10 code = 1348) NEUTROPHILS - ABS (DIFF) (BEAKER) 9.60 K/ L 1.80-8.00 H (test code = 1365) LYMPHOCYTES - ABS (DIFF) (BEAKER) 0.48 K/ L 1.48-4.50 L (test code = 1366) MONOCYTES - ABS (DIFF) (BEAKER) 0.84 K/ L 0.00-1.30 (test code = 1367) BANDS-ABS (DIFF) (BEAKER) (test 1.1 K/ L 0.0-0.8 H code = 1349) TOTAL COUNTED (BEAKER) (test code = 100 1351) BANDS + SEGMENTED NEUTROPHILS 10.68 (BEAKER) (test code = 1352) WBC MORPHOLOGY (BEAKER) (test code Normal = 487) PLT MORPHOLOGY (BEAKER) (test code Normal = 486) SCHISTOCYTES (BEAKER) (test code = 1+ few 765) JEAN PAUL CELLS (BEAKER) (test code = 1+ few 474) ELLIPTOCYTES (BEAKER) (test code = 1+ few 962) [id number] 19:13:00 Test Item Value Reference Range Interpretation Comments PHOSPHORUS (BEAKER) (test code = 2.8 mg/dL 2.3-4.7 604) [id number] 19:13:00 Test Item Value Reference Range Interpretation Comments MAGNESIUM (BEAKER) (test code = 1.7 mg/dL 1.6-2.6 627) BASIC METABOLIC [id number] 19:13:00 Test Item Value Reference Range Interpretation Comments SODIUM (BEAKER) 140 meq/L 136-145 (test code = 381) POTASSIUM (BEAKER) 4.2 meq/L 3.5-5.1 (test code = 379) CHLORIDE (BEAKER) 110 meq/L 98-107 H (test code = 382) CO2 (BEAKER) (test 22 meq/L 22-29 code = 355) BLOOD UREA NITROGEN 32 mg/dL 7-21 H (BEAKER) (test code = 354) CREATININE (BEAKER) 0.89 mg/dL 0.57-1.25 (test code = 358) GLUCOSE RANDOM 139 mg/dL 70-105 H (BEAKER) (test code = 652) CALCIUM (BEAKER) 9.6 mg/dL 8.4-10.2 (test code = 697) EGFR (BEAKER) (test 85 mL/min/1.73 ESTIMA MARIA DOLORES GFR IS code = 1092) sq m NOT ACCURATE CREATININE CLEARANCE IN PREDICTING GLOMERULAR FILTRATION RATE . ESTIMATED GFR I S NOT APPLICABLE FOR DIALYSIS PATIEN TS. Specimen slightly ictericLACTIC ACID, ARTERIAL, WHOLE [id number] 19:09:00 Test Item Value Reference Range Interpretation Comments LACTATE BLOOD ARTERIAL (2) 2.6 mmol/L 0.5-2.2 H (BEAKER) (test code = 2874) Effective 07/25/2015: Units/Reference Range ChangeNew: 0.5-2.2 mmol/L Previous: 5- 20 mg/dLSpecimen slightly [id number] 19:04:00 Test Item Value Reference Range Interpretation Comments FIBRINOGEN LEVEL (BEAKER) (test 274 mg/dl 225-434 code = 658) [id number] 19:04:00 Test Item Value Reference Range Interpretation Comments PARTIAL THROMBOPLASTIN TIME 40.5 seconds 22.5-36.0 H (BEAKER) (test code = 760) PROTHROMBIN [id number] 19:03:00 Test Item Value Reference Range Interpretation Comments PROTIME (BEAKER) (test code = 19.0 seconds 11.7-14.7 H 759) INR (BEAKER) (test code = 370) 1.6 <=5.9 RECOMMENDED COUMADIN/WARFARIN INR THERAPY RANGESSTANDARD DOSE: 2.0 - 3.0 Includes: PROPHYLAXIS for venous thrombosis, systemic embolization; TREATMENT for venous thrombosis and/or pulmonary embolus.HIGH RISK: Target INR is 2.5-3.5 for patients with mechanical heart valves.BLOOD GAS, [id number] 19:00:00 Test Item Value Reference Range Interpretation Comments PH ARTERIAL (BEAKER) (test code = 7.38 7.35-7.45 383) PCO2 ARTERIAL (BEAKER) (test code 45 mmHg 35-45 = 384) PO2 ARTERIAL (BEAKER) (test code = 260 mmHg 80-90 H 385) O2 SATURATION ARTERIAL (BEAKER) 99.6 % 96.0-97.0 H (test code = 386) HCO3 ARTERIAL (BEAKER) (test code 26 mmol/L 21-29 = 388) BASE EXCESS ARTERIAL (BEAKER) 0.3 mmol/L -2.0-3.0 (test code = 387) PATIENT TEMPERATURE (BEAKER) (test 35.2 C code = 1818) FIO2 (BEAKER) (test code = 1819) 60.0 % GLUCOSE-STAT [id number] 19:00:00 Test Item Value Reference Range Interpretation Comments GLUCOSE RANDOM (BEAKER) (test code 137 mg/dL 70-110 H = 652) HGB/HCT (H&H) - STAT [id number] 19:00:00 Test Item Value Reference Range Interpretation Comments HEMOGLOBIN (BEAKER) (test code = 10.0 g/dL 13.0-16.8 L 410) HEMATOCRIT (BEAKER) (test code = 29.0 % 40.0-50.0 L 411) CALCIUM, [id number] 19:00:00 Test Item Value Reference Range Interpretation Comments CALCIUM IONIZED (BEAKER) (test 1.33 mmol/L 1.12-1.27 H code = 698) PH, BLOOD (BEAKER) (test code = 7.38 1810) OXYGEN SATURATION, [id number] 18:59:00 Test Item Value Reference Range Interpretation Comments O2 SATURATION (MEASURED) (BEAKER) 83.4 % (test code = 1455) SODIUM NA-STAT [id number] 18:59:00 Test Item Value Reference Range Interpretation Comments SODIUM (BEAKER) (test code = 381) 137 meq/L 135-148 POTASSIUM-STAT [id number] 18:59:00 Test Item Value Reference Range Interpretation Comments POTASSIUM (BEAKER) (test code = 4.0 meq/L 3.6-5.5 379) [id number] 18:02:00 Test Item Value Reference Range Interpretation Comments FIBRINOGEN LEVEL (BEAKER) (test 247 mg/dl 225-434 code = 658) [id number] 18:02:00 Test Item Value Reference Range Interpretation Comments PARTIAL THROMBOPLASTIN TIME 37.7 seconds 22.5-36.0 H (BEAKER) (test code = 760) PROTHROMBIN [id number] 18:01:00 Test Item Value Reference Range Interpretation Comments PROTIME (BEAKER) (test code = 19.4 seconds 11.7-14.7 H 759) INR (BEAKER) (test code = 370) 1.6 <=5.9 RECOMMENDED COUMADIN/WARFARIN INR THERAPY RANGESSTANDARD DOSE: 2.0 - 3.0 Includes: PROPHYLAXIS for venous thrombosis, systemic embolization; TREATMENT for venous thrombosis and/or pulmonary embolus.HIGH RISK: Target INR is 2.5-3.5 for patients with mechanical heart valves.CALCIUM, [id number] 17:06:00 Test Item Value Reference Range Interpretation Comments CALCIUM IONIZED (BEAKER) (test 1.11 mmol/L 1.12-1.27 L code = 698) PH, BLOOD (BEAKER) (test code = 7.33 1810) BLOOD GAS, [id number] 17:05:00 Test Item Value Reference Range Interpretation Comments PH ARTERIAL (BEAKER) (test code = 7.33 7.35-7.45 L 383) PCO2 ARTERIAL (BEAKER) (test code 49 mmHg 35-45 H = 384) PO2 ARTERIAL (BEAKER) (test code 230 mmHg 80-90 H = 385) O2 SATURATION ARTERIAL (BEAKER) 99.4 % 96.0-97.0 H (test code = 386) HCO3 ARTERIAL (BEAKER) (test code 26 mmol/L 21-29 = 388) BASE EXCESS ARTERIAL (BEAKER) -0.7 mmol/L -2.0-3.0 (test code = 387) PATIENT TEMPERATURE (BEAKER) 35.3 C (test code = 1818) FIO2 (BEAKER) (test code = 1819) 100.0 % GLUCOSE-STAT [id number] 17:05:00 Test Item Value Reference Range Interpretation Comments GLUCOSE RANDOM (BEAKER) (test code 153 mg/dL 70-110 H = 652) HGB/HCT (H&H) - STAT [id number] 17:05:00 Test Item Value Reference Range Interpretation Comments HEMOGLOBIN (BEAKER) (test code = 7.4 g/dL 13.0-16.8 L 410) HEMATOCRIT (BEAKER) (test code = 22.0 % 40.0-50.0 L 411) SODIUM NA-STAT [id number] 17:02:00 Test Item Value Reference Range Interpretation Comments SODIUM (BEAKER) (test code = 381) 135 meq/L 135-148 POTASSIUM-STAT [id number] 17:02:00 Test Item Value Reference Range Interpretation Comments POTASSIUM (BEAKER) (test code = 4.1 meq/L 3.6-5.5 379) PLATELET [id number] 16:15:00 Test Item Value Reference Range Interpretation Comments PLATELET COUNT (BEAKER) (test 154 K/CU MM 150-450 code = 756) THROMBOELASTOGRAPH (TEG)[id number] 16:14:00 Test Item Value Reference Range Interpretation Comments TEG ACTIVATED CLOTTING TIME 4.1 minutes 4.0-7.0 (BEAKER) (test code = 1407) TEG FIBRINOGEN ACTIVITY (BEAKER) 67.8 degrees 61.0-73.0 (test code = 1408) TEG PLT. AGGREGATION (BEAKER) 58.9 MM 55.0-65.0 (test code = 1409) TGH ACTIVATED CLOTTING TIME 4.2 minutes 4.0-7.0 (BEAKER) (test code = 1411) TGH FIBRINOGEN ACTIVITY (BEAKER) 69.0 degrees 61.0-73.0 (test code = 1412) TGH PLT. AGGREGATION (BEAKER) 59.3 MM 55.0-65.0 (test code = 1413) BLOOD GAS, [id number] 16:01:00 Test Item Value Reference Range Interpretation Comments PH ARTERIAL (BEAKER) (test code = 7.37 7.35-7.45 383) PCO2 ARTERIAL (BEAKER) (test code 41 mmHg 35-45 = 384) PO2 ARTERIAL (BEAKER) (test code 430 mmHg 80-90 H = 385) O2 SATURATION ARTERIAL (BEAKER) 99.8 % 96.0-97.0 H (test code = 386) HCO3 ARTERIAL (BEAKER) (test code 23 mmol/L 21-29 = 388) BASE EXCESS ARTERIAL (BEAKER) -2.3 mmol/L -2.0-3.0 L (test code = 387) PATIENT TEMPERATURE (BEAKER) 35.0 C (test code = 1818) FIO2 (BEAKER) (test code = 1819) 100.0 % GLUCOSE-STAT [id number] 16:01:00 Test Item Value Reference Range Interpretation Comments GLUCOSE RANDOM (BEAKER) (test code 171 mg/dL 70-110 H = 652) HGB/HCT (H&H) - STAT [id number] 16:01:00 Test Item Value Reference Range Interpretation Comments HEMOGLOBIN (BEAKER) (test code = 8.6 g/dL 13.0-16.8 L 410) HEMATOCRIT (BEAKER) (test code = 25.0 % 40.0-50.0 L 411) SODIUM NA-STAT [id number] 16:00:00 Test Item Value Reference Range Interpretation Comments SODIUM (BEAKER) (test code = 381) 137 meq/L 135-148 POTASSIUM-STAT [id number] 16:00:00 Test Item Value Reference Range Interpretation Comments POTASSIUM (BEAKER) (test code = 4.2 meq/L 3.6-5.5 379) CALCIUM, [id number] 16:00:00 Test Item Value Reference Range Interpretation Comments CALCIUM IONIZED (BEAKER) (test 1.17 mmol/L 1.12-1.27 code = 698) PH, BLOOD (BEAKER) (test code = 7.34 1810) [id number] 15:45:00 Test Item Value Reference Range Interpretation Comments FIBRINOGEN LEVEL (BEAKER) (test 177 mg/dl 225-434 L code = 658) [id number] 15:45:00 Test Item Value Reference Range Interpretation Comments PARTIAL THROMBOPLASTIN TIME 39.6 seconds 22.5-36.0 H (BEAKER) (test code = 760) PROTHROMBIN [id number] 15:44:00 Test Item Value Reference Range Interpretation Comments PROTIME (BEAKER) (test code = 20.3 seconds 11.7-14.7 H 759) INR (BEAKER) (test code = 370) 1.7 <=5.9 RECOMMENDED COUMADIN/WARFARIN INR THERAPY RANGESSTANDARD DOSE: 2.0 - 3.0 Includes: PROPHYLAXIS for venous thrombosis, systemic embolization; TREATMENT for venous thrombosis and/or pulmonary embolus.HIGH RISK: Target INR is 2.5-3.5 for patients with mechanical heart valves.SODIUM NA-STAT [id number] 15:06:00 Test Item Value Reference Range Interpretation Comments SODIUM (BEAKER) (test code = 381) 136 meq/L 135-148 POTASSIUM-STAT [id number] 15:06:00 Test Item Value Reference Range Interpretation Comments POTASSIUM (BEAKER) (test code = 4.2 meq/L 3.6-5.5 379) BLOOD GAS, [id number] 15:06:00 Test Item Value Reference Range Interpretation Comments PH ARTERIAL (BEAKER) (test code = 7.42 7.35-7.45 383) PCO2 ARTERIAL (BEAKER) (test code 37 mmHg 35-45 = 384) PO2 ARTERIAL (BEAKER) (test code 470 mmHg 80-90 H = 385) O2 SATURATION ARTERIAL (BEAKER) 99.9 % 96.0-97.0 H (test code = 386) HCO3 ARTERIAL (BEAKER) (test code 24 mmol/L 21-29 = 388) BASE EXCESS ARTERIAL (BEAKER) -0.8 mmol/L -2.0-3.0 (test code = 387) PATIENT TEMPERATURE (BEAKER) 35.1 C (test code = 1818) FIO2 (BEAKER) (test code = 1819) 96.0 % GLUCOSE-STAT [id number] 15:06:00 Test Item Value Reference Range Interpretation Comments GLUCOSE RANDOM (BEAKER) (test code 169 mg/dL 70-110 H = 652) HGB/HCT (H&H) - STAT [id number] 15:06:00 Test Item Value Reference Range Interpretation Comments HEMOGLOBIN (BEAKER) (test code = 7.9 g/dL 13.0-16.8 L 410) HEMATOCRIT (BEAKER) (test code = 23.0 % 40.0-50.0 L 411) CALCIUM, [id number] 15:06:00 Test Item Value Reference Range Interpretation Comments CALCIUM IONIZED (BEAKER) (test 1.35 mmol/L 1.12-1.27 H code = 698) PH, BLOOD (BEAKER) (test code = 7.39 1810) THROMBOELASTOGRAPH (TEG)2016-10-15 14:48:00 Test Item Value Reference Range Interpretation Comments TEG ACTIVATED CLOTTING TIME 6.3 minutes 4.0-7.0 (BEAKER) (test code = 1407) TEG FIBRINOGEN ACTIVITY (BEAKER) 70.1 degrees 61.0-73.0 (test code = 1408) TEG PLT. AGGREGATION (BEAKER) 52.4 MM 55.0-65.0 L (test code = 1409) TGH ACTIVATED CLOTTING TIME 6.4 minutes 4.0-7.0 (BEAKER) (test code = 1411) TGH FIBRINOGEN ACTIVITY (BEAKER) 67.8 degrees 61.0-73.0 (test code = 1412) TGH PLT. AGGREGATION (BEAKER) 61.5 MM 55.0-65.0 (test code = 1413) PLATELET [id number] 14:42:00 Test Item Value Reference Range Interpretation Comments PLATELET COUNT (BEAKER) (test 161 K/CU MM 150-450 code = 756) [id number] 14:32:00 Test Item Value Reference Range Interpretation Comments FIBRINOGEN LEVEL (BEAKER) (test 199 mg/dl 225-434 L code = 658) [id number] 14:32:00 Test Item Value Reference Range Interpretation Comments PARTIAL THROMBOPLASTIN TIME 44.5 seconds 22.5-36.0 H (BEAKER) (test code = 760) PROTHROMBIN [id number] 14:31:00 Test Item Value Reference Range Interpretation Comments PROTIME (BEAKER) (test code = 20.4 seconds 11.7-14.7 H 759) INR (BEAKER) (test code = 370) 1.8 <=5.9 RECOMMENDED COUMADIN/WARFARIN INR THERAPY RANGESSTANDARD DOSE: 2.0 - 3.0 Includes: PROPHYLAXIS for venous thrombosis, systemic embolization; TREATMENT for venous thrombosis and/or pulmonary embolus.HIGH RISK: Target INR is 2.5-3.5 for patients with mechanical heart valves.PLATELET [id number] 14:28:00 Test Item Value Reference Range Interpretation Comments PLATELET COUNT (BEAKER) (test 130 K/CU MM 150-450 L code = 756) THROMBOELASTOGRAPH (TEG)2016-10-15 14:15:00 Test Item Value Reference Range Interpretation Comments TEG ACTIVATED CLOTTING TIME 10.7 minutes 4.0-7.0 H (BEAKER) (test code = 1407) TEG FIBRINOGEN ACTIVITY (BEAKER) 54.3 degrees 61.0-73.0 L (test code = 1408) TEG PLT. AGGREGATION (BEAKER) 48.5 MM 55.0-65.0 L (test code = 1409) TGH ACTIVATED CLOTTING TIME 10.4 minutes 4.0-7.0 H (BEAKER) (test code = 1411) TGH FIBRINOGEN ACTIVITY (BEAKER) 63.1 degrees 61.0-73.0 (test code = 1412) TGH PLT. AGGREGATION (BEAKER) 53.1 MM 55.0-65.0 L (test code = 1413) CALCIUM, [id number] 14:11:00 Test Item Value Reference Range Interpretation Comments CALCIUM IONIZED (BEAKER) (test 1.04 mmol/L 1.12-1.27 L code = 698) PH, BLOOD (BEAKER) (test code = 7.40 1810) SODIUM NA-STAT [id number] 14:09:00 Test Item Value Reference Range Interpretation Comments SODIUM (BEAKER) (test code = 381) 136 meq/L 135-148 POTASSIUM-STAT [id number] 14:09:00 Test Item Value Reference Range Interpretation Comments POTASSIUM (BEAKER) (test code = 4.3 meq/L 3.6-5.5 379) BLOOD GAS, [id number] 14:09:00 Test Item Value Reference Range Interpretation Comments PH ARTERIAL (BEAKER) (test code = 7.43 7.35-7.45 383) PCO2 ARTERIAL (BEAKER) (test code 37 mmHg 35-45 = 384) PO2 ARTERIAL (BEAKER) (test code 503 mmHg 80-90 H = 385) O2 SATURATION ARTERIAL (BEAKER) 99.9 % 96.0-97.0 H (test code = 386) HCO3 ARTERIAL (BEAKER) (test code 24 mmol/L 21-29 = 388) BASE EXCESS ARTERIAL (BEAKER) -0.5 mmol/L -2.0-3.0 (test code = 387) PATIENT TEMPERATURE (BEAKER) 35.2 C (test code = 1818) FIO2 (BEAKER) (test code = 1819) 100.0 % GLUCOSE-STAT [id number] 14:09:00 Test Item Value Reference Range Interpretation Comments GLUCOSE RANDOM (BEAKER) (test code 178 mg/dL 70-110 H = 652) HGB/HCT (H&H) - STAT [id number] 14:09:00 Test Item Value Reference Range Interpretation Comments HEMOGLOBIN (BEAKER) (test code = 8.4 g/dL 13.0-16.8 L 410) HEMATOCRIT (BEAKER) (test code = 25.0 % 40.0-50.0 L 411) HEMOGLOBIN-STAT [id number] 13:41:00 Test Item Value Reference Range Interpretation Comments HEMOGLOBIN (BEAKER) (test code = 8.4 GM/DL 13.7-17.5 L 410) [id number] 13:36:00 Test Item Value Reference Range Interpretation Comments FIBRINOGEN LEVEL (BEAKER) (test 157 mg/dl 225-434 L code = 658) [id number] 13:36:00 Test Item Value Reference Range Interpretation Comments PARTIAL THROMBOPLASTIN TIME 49.2 seconds 22.5-36.0 H (BEAKER) (test code = 760) PROTHROMBIN [id number] 13:35:00 Test Item Value Reference Range Interpretation Comments PROTIME (BEAKER) (test code = 25.5 seconds 11.7-14.7 H 759) INR (BEAKER) (test code = 370) 2.3 <=5.9 RECOMMENDED COUMADIN/WARFARIN INR THERAPY RANGESSTANDARD DOSE: 2.0 - 3.0 Includes: PROPHYLAXIS for venous thrombosis, systemic embolization; TREATMENT for venous thrombosis and/or pulmonary embolus.HIGH RISK: Target INR is 2.5-3.5 for patients with mechanical heart valves.CALCIUM, [id number] 13:08:00 Test Item Value Reference Range Interpretation Comments CALCIUM IONIZED (BEAKER) (test 1.40 mmol/L 1.12-1.27 H code = 698) PH, BLOOD (BEAKER) (test code = 7.35 1810) BLOOD GAS, [id number] 13:08:00 Test Item Value Reference Range Interpretation Comments PH ARTERIAL (BEAKER) (test code = 7.36 7.35-7.45 383) PCO2 ARTERIAL (BEAKER) (test code 43 mmHg 35-45 = 384) PO2 ARTERIAL (BEAKER) (test code 432 mmHg 80-90 H = 385) O2 SATURATION ARTERIAL (BEAKER) 99.8 % 96.0-97.0 H (test code = 386) HCO3 ARTERIAL (BEAKER) (test code 24 mmol/L 21-29 = 388) BASE EXCESS ARTERIAL (BEAKER) -1.5 mmol/L -2.0-3.0 (test code = 387) PATIENT TEMPERATURE (BEAKER) 35.7 C (test code = 1818) FIO2 (BEAKER) (test code = 1819) 100.0 % GLUCOSE-STAT [id number] 13:08:00 Test Item Value Reference Range Interpretation Comments GLUCOSE RANDOM (BEAKER) (test code 170 mg/dL 70-110 H = 652) SODIUM NA-STAT [id number] 13:08:00 Test Item Value Reference Range Interpretation Comments SODIUM (BEAKER) (test code = 381) 132 meq/L 135-148 L HGB/HCT (H&H) - STAT [id number] 13:08:00 Test Item Value Reference Range Interpretation Comments HEMOGLOBIN (BEAKER) (test code = 9.0 g/dL 13.0-16.8 L 410) HEMATOCRIT (BEAKER) (test code = 26.0 % 40.0-50.0 L 411) POTASSIUM-STAT [id number] 13:07:00 Test Item Value Reference Range Interpretation Comments POTASSIUM (BEAKER) (test code = 4.7 meq/L 3.6-5.5 379) POTASSIUM-STAT [id number] 12:42:00 Test Item Value Reference Range Interpretation Comments POTASSIUM (BEAKER) (test code = 5.2 meq/L 3.6-5.5 379) BLOOD GAS, [id number] 12:42:00 Test Item Value Reference Range Interpretation Comments PH ARTERIAL (BEAKER) (test code = 7.37 7.35-7.45 383) PCO2 ARTERIAL (BEAKER) (test code 45 mmHg 35-45 = 384) PO2 ARTERIAL (BEAKER) (test code = 326 mmHg 80-90 H 385) O2 SATURATION ARTERIAL (BEAKER) 99.7 % 96.0-97.0 H (test code = 386) HCO3 ARTERIAL (BEAKER) (test code 26 mmol/L 21-29 = 388) BASE EXCESS ARTERIAL (BEAKER) 0.1 mmol/L -2.0-3.0 (test code = 387) PATIENT TEMPERATURE (BEAKER) (test 36.7 C code = 1818) FIO2 (BEAKER) (test code = 1819) 70.0 % SODIUM NA-STAT [id number] 12:42:00 Test Item Value Reference Range Interpretation Comments SODIUM (BEAKER) (test code = 381) 133 meq/L 135-148 L GLUCOSE-STAT [id number] 12:42:00 Test Item Value Reference Range Interpretation Comments GLUCOSE RANDOM (BEAKER) (test code 159 mg/dL 70-110 H = 652) HGB/HCT (H&H) - STAT [id number] 12:42:00 Test Item Value Reference Range Interpretation Comments HEMOGLOBIN (BEAKER) (test code = 8.4 g/dL 13.0-16.8 L 410) HEMATOCRIT (BEAKER) (test code = 25.0 % 40.0-50.0 L 411) SODIUM NA-STAT [id number] 12:26:00 Test Item Value Reference Range Interpretation Comments SODIUM (BEAKER) (test code = 381) 136 meq/L 135-148 POTASSIUM-STAT [id number] 12:26:00 Test Item Value Reference Range Interpretation Comments POTASSIUM (BEAKER) (test code = 5.5 meq/L 3.6-5.5 379) BLOOD GAS, [id number] 12:26:00 Test Item Value Reference Range Interpretation Comments PH ARTERIAL (BEAKER) (test code = 7.36 7.35-7.45 383) PCO2 ARTERIAL (BEAKER) (test code 47 mmHg 35-45 H = 384) PO2 ARTERIAL (BEAKER) (test code = 336 mmHg 80-90 H 385) O2 SATURATION ARTERIAL (BEAKER) 99.7 % 96.0-97.0 H (test code = 386) HCO3 ARTERIAL (BEAKER) (test code 26 mmol/L 21-29 = 388) BASE EXCESS ARTERIAL (BEAKER) 0.4 mmol/L -2.0-3.0 (test code = 387) PATIENT TEMPERATURE (BEAKER) (test 36.0 C code = 1818) FIO2 (BEAKER) (test code = 1819) 75.0 % GLUCOSE-STAT [id number] 12:26:00 Test Item Value Reference Range Interpretation Comments GLUCOSE RANDOM (BEAKER) (test code 162 mg/dL 70-110 H = 652) HGB/HCT (H&H) - STAT [id number] 12:26:00 Test Item Value Reference Range Interpretation Comments HEMOGLOBIN (BEAKER) (test code = 9.3 g/dL 13.0-16.8 L 410) HEMATOCRIT (BEAKER) (test code = 27.0 % 40.0-50.0 L 411) BLOOD GAS, [id number] 12:04:00 Test Item Value Reference Range Interpretation Comments PH ARTERIAL (BEAKER) (test code = 7.34 7.35-7.45 L 383) PCO2 ARTERIAL (BEAKER) (test code 45 mmHg 35-45 = 384) PO2 ARTERIAL (BEAKER) (test code 271 mmHg 80-90 H = 385) O2 SATURATION ARTERIAL (BEAKER) 99.6 % 96.0-97.0 H (test code = 386) HCO3 ARTERIAL (BEAKER) (test code 25 mmol/L 21-29 = 388) BASE EXCESS ARTERIAL (BEAKER) -2.1 mmol/L -2.0-3.0 L (test code = 387) PATIENT TEMPERATURE (BEAKER) 32.1 C (test code = 1818) FIO2 (BEAKER) (test code = 1819) 50.0 % GLUCOSE-STAT [id number] 12:04:00 Test Item Value Reference Range Interpretation Comments GLUCOSE RANDOM (BEAKER) (test code 158 mg/dL 70-110 H = 652) HGB/HCT (H&H) - STAT [id number] 12:04:00 Test Item Value Reference Range Interpretation Comments HEMOGLOBIN (BEAKER) (test code = 8.9 g/dL 13.0-16.8 L 410) HEMATOCRIT (BEAKER) (test code = 26.0 % 40.0-50.0 L 411) SODIUM NA-STAT [id number] 12:02:00 Test Item Value Reference Range Interpretation Comments SODIUM (BEAKER) (test code = 381) 135 meq/L 135-148 POTASSIUM-STAT [id number] 12:02:00 Test Item Value Reference Range Interpretation Comments POTASSIUM (BEAKER) (test code = 4.8 meq/L 3.6-5.5 379) BLOOD GAS, [id number] 10:09:00 Test Item Value Reference Range Interpretation Comments PH ARTERIAL (BEAKER) (test code = 7.43 7.35-7.45 383) PCO2 ARTERIAL (BEAKER) (test code 39 mmHg 35-45 = 384) PO2 ARTERIAL (BEAKER) (test code = 102 mmHg 80-90 H 385) O2 SATURATION ARTERIAL (BEAKER) 98.0 % 96.0-97.0 H (test code = 386) HCO3 ARTERIAL (BEAKER) (test code 25 mmol/L 21-29 = 388) BASE EXCESS ARTERIAL (BEAKER) 0.6 mmol/L -2.0-3.0 (test code = 387) PATIENT TEMPERATURE (BEAKER) (test 36.0 C code = 1818) FIO2 (BEAKER) (test code = 1819) 36.0 % SODIUM NA-STAT [id number] 10:09:00 Test Item Value Reference Range Interpretation Comments SODIUM (BEAKER) (test code = 381) 133 meq/L 135-148 L GLUCOSE-STAT [id number] 10:09:00 Test Item Value Reference Range Interpretation Comments GLUCOSE RANDOM (BEAKER) (test code 191 mg/dL 70-110 H = 652) HGB/HCT (H&H) - STAT [id number] 10:09:00 Test Item Value Reference Range Interpretation Comments HEMOGLOBIN (BEAKER) (test code = 13.2 g/dL 13.0-16.8 410) HEMATOCRIT (BEAKER) (test code = 39.0 % 40.0-50.0 L 411) POTASSIUM-STAT [id number] 10:08:00 Test Item Value Reference Range Interpretation Comments POTASSIUM (BEAKER) (test code = 4.7 meq/L 3.6-5.5 379) CALCIUM, [id number] 10:07:00 Test Item Value Reference Range Interpretation Comments CALCIUM IONIZED (BEAKER) (test 1.17 mmol/L 1.12-1.27 code = 698) PH, BLOOD (BEAKER) (test code = 7.41 1810) POCT-GLUCOSE [id number] 06:19:00 Test Item Value Reference Range Interpretation Comments POC-GLUCOSE METER 230 mg/dL 70-110 H TESTED AT [facility] 67[address] (BEAKER) (test code = [place] 1538) [address] COMPREHENSIVE METABOLIC [id number] 20:05:00 Test Item Value Reference Range Interpretation Comments TOTAL PROTEIN 6.5 gm/dL 6.0-8.3 (BEAKER) (test code = 770) ALBUMIN (BEAKER) 3.3 g/dL 3.5-5.0 L (test code = 1145) ALKALINE PHOSPHATASE 108 U/L 40-150 (BEAKER) (test code = 346) BILIRUBIN TOTAL 1.2 mg/dL 0.2-1.2 (BEAKER) (test code = 377) SODIUM (BEAKER) (test 137 meq/L 136-145 code = 381) POTASSIUM (BEAKER) 4.6 meq/L 3.5-5.1 (test code = 379) CHLORIDE (BEAKER) 103 meq/L 98-107 (test code = 382) CO2 (BEAKER) (test 27 meq/L 22-29 code = 355) BLOOD UREA NITROGEN 38 mg/dL 7-21 H (BEAKER) (test code = 354) CREATININE (BEAKER) 1.22 mg/dL 0.57-1.25 (test code = 358) GLUCOSE RANDOM 157 mg/dL 70-105 H (BEAKER) (test code = 652) CALCIUM (BEAKER) 8.8 mg/dL 8.4-10.2 (test code = 697) AST (SGOT) (BEAKER) 17 U/L 5-34 (test code = 353) ALT (SGPT) (BEAKER) 15 U/L 6-55 (test code = 347) EGFR (BEAKER) (test 59 mL/min/1.73 ESTIMA MARIA DOLORES GFR IS code = 1092) sq m NOT ACCURATE CREATININE CLEARANCE IN PREDICTING GLOMERULAR FILTRATION RATE . ESTIMATED GFR I S NOT APPLICABLE FOR DIALYSIS PATIEN TS. [id number] 19:25:00 Test Item Value Reference Range Interpretation Comments PARTIAL THROMBOPLASTIN TIME 34.3 seconds 22.5-36.0 (BEAKER) (test code = 760) PROTHROMBIN [id number] 19:24:00 Test Item Value Reference Range Interpretation Comments PROTIME (BEAKER) (test code = 15.9 seconds 11.7-14.7 H 759) INR (BEAKER) (test code = 370) 1.3 <=5.9 RECOMMENDED COUMADIN/WARFARIN INR THERAPY RANGESSTANDARD DOSE: 2.0 - 3.0 Includes: PROPHYLAXIS for venous thrombosis, systemic embolization; TREATMENT for venous thrombosis and/or pulmonary embolus.HIGH RISK: Target INR is 2.5-3.5 for patients with mechanical heart valves.CBC W/PLT COUNT & AUTO [id number] 19:16:00 Test Item Value Reference Range Interpretation Comments WHITE BLOOD CELL COUNT (BEAKER) 5.9 K/ L 3.5-10.5 (test code = 775) RED BLOOD CELL COUNT (BEAKER) 4.71 M/ L 4.63-6.08 (test code = 761) HEMOGLOBIN (BEAKER) (test code = 12.6 GM/DL 13.7-17.5 L 410) HEMATOCRIT (BEAKER) (test code = 39.3 % 40.1-51.0 L 411) MEAN CORPUSCULAR VOLUME (BEAKER) 83.4 fL 79.0-92.2 (test code = 753) MEAN CORPUSCULAR HEMOGLOBIN 26.8 pg 25.7-32.2 (BEAKER) (test code = 751) MEAN CORPUSCULAR HEMOGLOBIN CONC 32.1 GM/DL 32.3-36.5 L (BEAKER) (test code = 752) RED CELL DISTRIBUTION WIDTH 15.9 % 11.6-14.4 H (BEAKER) (test code = 412) PLATELET COUNT (BEAKER) (test 246 K/CU MM 150-450 code = 756) MEAN PLATELET VOLUME (BEAKER) 10.0 fL 9.4-12.4 (test code = 754) NUCLEATED RED BLOOD CELLS 0 /100 WBC 0-0 (BEAKER) (test code = 413) NEUTROPHILS RELATIVE PERCENT 71 % (BEAKER) (test code = 429) LYMPHOCYTES RELATIVE PERCENT 11 % (BEAKER) (test code = 430) MONOCYTES RELATIVE PERCENT 14 % (BEAKER) (test code = 431) EOSINOPHILS RELATIVE PERCENT 2 % (BEAKER) (test code = 432) BASOPHILS RELATIVE PERCENT 1 % (BEAKER) (test code = 437) NEUTROPHILS ABSOLUTE COUNT 4.19 K/ L 1.78-5.38 (BEAKER) (test code = 670) LYMPHOCYTES ABSOLUTE COUNT 0.67 K/ L 1.32-3.57 L (BEAKER) (test code = 414) MONOCYTES ABSOLUTE COUNT (BEAKER) 0.83 K/ L 0.30-0.82 H (test code = 415) EOSINOPHILS ABSOLUTE COUNT 0.13 K/ L 0.04-0.54 (BEAKER) (test code = 416) BASOPHILS ABSOLUTE COUNT (BEAKER) 0.04 K/ L 0.01-0.08 (test code = 417) IMMATURE GRANULOCYTES-RELATIVE 0 % 0-1 PERCENT (BEAKER) (test code = 4107)
[2023-01-22 15:18] LABS: Absolute Lymphocytes (CBC) 0.9 K/uL (0.7-4.9); Lymphocytes % 8.8 % (15.3-44.8); MCV 88.4 fL (80-100); MPV 6.5 fL (7.6-11.3); Platelets 287 thou/uL (152-406); RBC Red Blood Cell Count 3.05 M/uL (4.33-5.43)
[2023-01-22 15:35] LABS: Bilirubin Direct 0.4 mg/dL (0-0.2); Bilirubin Indirect, Calculated 0.9 mg/dL (0.2-0.8); Bilirubin Total 1.3 mg/dL (0.2-1.0); Magnesium 3.1 mg/dL (1.6-2.4); Potassium 5.4 mEq/L (3.5-5.1); Protein, Total 6.9 g/dL (6.4-8.2); Troponin High Sensitivity 51.4 pg/mL (<58.9)
[2023-01-22 15:39] LABS: SARS-CoV-2 Antigen Rapid Res Negative (Negative)
[2023-01-22 15:51] LABS: Specific Gravity 1.026 (1.005-1.030); Urine Bacteria None Seen /HPF (<20); Urine Bilirubin NEGATIVE (Negative); Urine Blood 3+ (OVER) (Negative); Urine Clarity Turbid (Clear); Urine Color Light-Yellow (Yellow); Urine Glucose 4+ (Over) (Negative); Urine Mucus Slight /HPF (None Seen); Urine Protein TRACE (Negative); Urine RBC >50 /HPF (None Seen); Urine Urobilinogen Normal (Normal); Urine pH 5.5 (5.0-7.0)
--- NOTE | 2023-01-22 16:07 | RAD REPORT ---
EXAM DESCRIPTION: RADChest Single View01/22/2023 3:47 pm CLINICAL HISTORY: COUGH COMPARISON: Chest Pa And Lat (2 Views) dated 10/10/2021; Chest Single View dated 04/23/2020; Chest Sing le View dated 04/22/2020; Chest Single View dated 02/12/2020 TECHNIQUE: Portable AP view of the chest. FINDINGS: The lungs are clear. No pneumothorax or effusion. Stable cardiomegaly. Mediastinal contou rs are unchanged, with sequelae of prior CABG. IMPRESSION: No acute cardiopulmonary process.
--- NOTE | 2023-01-22 16:54 | ER ---
Nurse's Notes [facility] Name: Navjot Collins Age: 77 yrs Sex: Male : 1945 Arrival Date: 01/22/2023 Time: 14:31 Bed 18 Private MD: Diagnosis: Influenza due to other identified influenza virus with gastrointestinal manifestations;Microscopic hematuria Presentation: 01/22 14:42 Chief complaint: Patient states: cough and dry heaves onset 2 days ago. Coronavirus cm10 screen: Vaccine status: Patient reports receiving the 2nd dose of the covid vaccine. Client denies travel out of the [place] in the last 14 days. Ebola Screen: Patient denies travel to an Ebola-affected area in the 21 days before illness onset. No symptoms or risks identified at this time. Initial Sepsis Screen: Does the patient meet any 2 criteria? No. Patient's initial sepsis screen is negative. Does the patient have a suspected source of infection? No. Patient's initial sepsis screen is negative. Risk Assessment: Do you want to hurt yourself or someone else? Patient reports no desire to harm self or others. Onset of symptoms was January 22, 2023. 14:42 Method Of Arrival: Wheelchair cm10 14:42 Acuity: ZENAIDA 4 cm10 Historical: - Allergies: 14:44 Codeine; cm10 14:44 Demerol; cm10 14:44 fedrazil; cm10 14:44 Vicodin; cm10 - PMHx: 14:44 Atrial Fib; CAD; CHF; Diabetes - IDDM; HTN; PROSTATE CA; cm10 - Immunization history:: Adult Immunizations unknown. - Social history:: Smoking status: Patient denies any tobacco usage or history of. - Family history:: not pertinent. Screenin:45 [facility] ED Fall Risk Assessment (Adult) Score/Fall Risk Level 0 - 2 = Low Risk. Abuse eh3 screen: Denies threats or abuse. Denies injuries from another. Nutritional screening: No deficits noted. Tuberculosis screening: No symptoms or risk factors identified. Assessment: 14:45 General: Appears in no apparent distress. uncomfortable, Behavior is calm, cooperative, eh3 appropriate for age. Pain: Denies pain. Neuro: Level of Consciousness is awake, alert, obeys commands, Oriented to person, place, time, situation. Cardiovascular: Capillary refill < 3 seconds Patient's skin is warm and dry. Respiratory: Airway is patent Respiratory effort is even, unlabored, Respiratory pattern is regular, symmetrical. GI: Abdomen is round non-distended. Derm: Skin is pink, warm \T\ dry. Musculoskeletal: Amputation of BKA Circulation, motion, and sensation intact. 15:30 Reassessment: Patient appears in no apparent distress at this time. Patient and/or 3 family updated on plan of care and expected duration. Pain level reassessed. Patient is alert, oriented x 3, equal unlabored respirations, skin warm/dry/pink. 16:30 Reassessment: Patient appears in no apparent distress at this time. Patient and/or eh3 family updated on plan of care and expected duration. Pain level reassessed. Patient is alert, oriented x 3, equal unlabored respirations, skin warm/dry/pink. Vital Signs: 14:42 BP 118 / 66; Pulse 57; Resp 18 S; Temp 97.5; Pulse Ox 100% on R/A; Weight 87.54 kg; cm10 Height 6 ft. 1 in. ; Pain 0/10; 15:30 BP 120 / 64; Pulse 59; Resp 16; Pulse Ox 96% on R/A; eh3 16:30 BP 123 / 60; Pulse 54; Resp 18; Pulse Ox 95% on R/A; eh3 14:42 Body Mass Index 25.46 (87.54 kg, 185.42 cm) cm10 14:42 Pain Scale: Adult cm10 ED Course: 14:34 Patient arrived in ED. mg5 14:35 Lazaro Butler MD is Attending Physician. rt 14:44 Triage completed. cm10 14:44 Arm band placed on Patient placed in an exam room, on a stretcher. cm10 14:45 Patient has correct armband on for positive identification. Bed in low position. Call 3 light in reach. Side rails up X2. Provided Education on: use of call abel. Client placed on continuous cardiac and pulse oximetry monitoring. NIBP monitoring applied. 15:00 Vero Blackman, JUDE is Primary Nurse. 3 15:10 Influenza Screen (a \T\ B) Sent. bc6 15:10 SARS RAPID Sent. bc6 15:10 Basic Metabolic Panel Sent. bc6 15:10 CBC with Diff Sent. bc6 15:10 LFT's Sent. bc6 15:11 Magnesium Sent. bc6 15:11 NT PRO-BNP Sent. bc6 15:11 Troponin HS Sent. bc6 15:11 Inserted saline lock: 22 gauge in right antecubital area, using aseptic technique. bc6 Blood collected. 15:49 XRAY Chest (1 view) In Process Unspecified. EDMS 16:30 Diet: Patient given ice chips. Patient given water. Tolerated well. eh3 16:53 Higinio Garcia MD is Referral Physician. rt 17:01 No provider procedures requiring assistance completed. IV discontinued, intact, eh3 bleeding controlled, No redness/swelling at site. Pressure dressing applied. Administered Medications: No medications were administered Medication: 17:01 VIS not applicable for this client. eh3 Outcome: 16:54 Discharge ordered by . rt 17:20 Patient left the ED. eh3 Addendum: 01/26/2023 10:06 Addendum: Culture Results: Positive urine culture. Patient was not prescribed j l7 antibiotics at discharge. Report given to HAYDER for further evaluation and then to regional safety manager for follow up with patient. Phone call Attempt #1 JUDE Guy left voicemail. 10:30 Addendum: Culture Results: No further action required. Phone call Attempt #2 Pt caqlled j l7 back, symptoms improved. Signatures: Dispatcher [employer] Tanmay Hernandez RN RN jl7 Vero Blackman RN RN eh3 Lazaro Butler MD MD rt Georgina Yarbrough6 Melanie Kendrick RN RN cm10 Marcy West mg5 Corrections: (The following items were deleted from the chart) 01/29 10:45 10:30 Addendum: Culture Results: No further action required. Phone call Attempt #2 Pt jl7 caqlled back, symptoms improved jl7
--- NOTE | 2023-01-22 16:55 | EDPHYS ---
Physician Documentation [facility] Name: Navjot Collins Age: 77 yrs Sex: Male : 1945 Arrival Date: 01/22/2023 Time: 14:31 Bed 18 Private MD: ED Physician Lazaro Butler HPI: 01/22 15:12 This 77 yrs old Male presents to ER via Wheelchair with complaints of Flu Symptoms. rt 15:12 Patient with past medical history of chronic kidney disease, CHF, coronary artery rt disease presents to the ED with cough, occasional dry heaves for about 2 days now. Patient denies any difficulty breathing. Patient states that these episodes are intermittent, that he feels well in between them. Patient states that he was post have a urinalysis performed, is not yet been able to do so. Denies other acute complaints at this time, symptoms are mild in severity, no other aggravating or alleviating factors.. Historical: - Allergies: 14:44 Codeine; cm10 14:44 Demerol; cm10 14:44 fedrazil; cm10 14:44 Vicodin; cm10 - PMHx: 14:44 Atrial Fib; CAD; CHF; Diabetes - IDDM; HTN; PROSTATE CA; cm10 - Immunization history:: Adult Immunizations unknown. - Social history:: Smoking status: Patient denies any tobacco usage or history of. - Family history:: not pertinent. ROS: 15:12 Cardiovascular: Negative for chest pain, palpitations, and edema, MS/Extremity: rt Negative for injury and deformity, Skin: Negative for injury, rash, and discoloration, Neuro: Negative for headache, weakness, numbness, tingling, and seizure, Psych: Negative for depression, anxiety, suicide ideation, homicidal ideation, and hallucinations, 15:12 Constitutional: Positive for chills, malaise, Negative for 15:12 Respiratory: Positive for cough, Negative for shortness of breath, 15:12 Abdomen/GI: Positive for nausea, Negative for abdominal pain, vomiting, Exam: 15:12 Constitutional: This is a well developed, well nourished patient who is awake, alert, rt and in no acute distress. Head/Face: Normocephalic, atraumatic. Chest/axilla: Normal chest wall appearance and motion. Nontender with no deformity. No lesions are appreciated. Cardiovascular: Regular rate and rhythm with a normal S1 and S2. No gallops, murmurs, or rubs. Normal PMI, no JVD. No pulse deficits. Respiratory: Lungs have equal breath sounds bilaterally, clear to auscultation and percussion. No rales, rhonchi or wheezes noted. No increased work of breathing, no retractions or nasal flaring. Abdomen/GI: Soft, non-tender, with normal bowel sounds. No distension or tympany. No guarding or rebound. No evidence of tenderness throughout. Skin: Warm, dry with normal turgor. Normal color with no rashes, no lesions, and no evidence of cellulitis. MS/ Extremity: Pulses equal, no cyanosis. Neurovascular intact. Full, normal range of motion. Neuro: Awake and alert, GCS 15, oriented to person, place, time, and situation. Cranial nerves II-XII grossly intact. Motor strength 5/5 in all extremities. Sensory grossly intact. Cerebellar exam normal. Normal gait. Psych: Awake, alert, with orientation to person, place and time. Behavior, mood, and affect are within normal limits. 15:39 ECG was reviewed by the Attending Physician. rt 17:01 Musculoskeletal/extremity: Left below the knee amputation. rt Vital Signs: 14:42 BP 118 / 66; Pulse 57; Resp 18 S; Temp 97.5; Pulse Ox 100% on R/A; Weight 87.54 kg; cm10 Height 6 ft. 1 in. ; Pain 0/10; 15:30 BP 120 / 64; Pulse 59; Resp 16; Pulse Ox 96% on R/A; eh3 16:30 BP 123 / 60; Pulse 54; Resp 18; Pulse Ox 95% on R/A; eh3 14:42 Body Mass Index 25.46 (87.54 kg, 185.42 cm) cm10 14:42 Pain Scale: Adult cm10 MDM: 14:45 Patient medically screened. rt 17:01 Differential Diagnosis Flu, UTI, electrolyte disturbance, ACS, pneumonia. Data rt reviewed: vital signs, nurses notes, lab test result(s), EKG, radiologic studies. Consideration of Admission/Observation Escalation of care including admission/observation considered. Creatinine lower than baseline, mild hyperkalemia 5 EKG changes. BNP is elevated, is at baseline. Patient with flu, no hypoxia, x-ray is unremarkable. He is amenable to discharge. Return precautions discussed.. Independent interpretation of the following test(s) in the Emergency Department X-Ray: My interpretation is No consolidation seen on my interpretation of CT scan images. Test considered but Not performed: CT: Benign abdominal examination, CT scan not indicated. Response to treatment: the patient's symptoms have mildly improved after treatment. 01/22 14:59 Order name: Basic Metabolic Panel; Complete Time: 16:27 rt 01/22 14:59 Order name: CBC with Diff; Complete Time: 16:27 rt 01/22 14:59 Order name: LFT's; Complete Time: 16:27 rt 01/22 14:59 Order name: Magnesium; Complete Time: 16:27 rt 01/22 14:59 Order name: NT PRO-BNP; Complete Time: 16:27 rt 01/22 14:59 Order name: Troponin HS; Complete Time: 16:27 rt 01/22 14:59 Order name: SARS RAPID; Complete Time: 16:27 rt 01/22 14:59 Order name: Influenza Screen (a \T\ B); Complete Time: 16:27 rt 01/22 14:59 Order name: UAM; Complete Time: 16:27 rt 01/22 16:14 Order name: Urine Culture EDMS 01/22 14:59 Order name: XRAY Chest (1 view); Complete Time: 16:27 rt 01/22 14:59 Order name: EKG; Complete Time: 15:00 rt 01/22 14:59 Order name: Cardiac monitoring; Complete Time: 15:06 rt 01/22 14:59 Order name: EKG - Nurse/Tech; Complete Time: 15:06 rt 01/22 14:59 Order name: IV Saline Lock; Complete Time: 15:06 rt 01/22 14:59 Order name: Labs collected and sent; Complete Time: 15:06 rt 01/22 14:59 Order name: O2 Per Protocol; Complete Time: 15:06 rt 01/22 14:59 Order name: O2 Sat Monitoring; Complete Time: 15:07 rt EC:39 Rate is 58 beats/min. Rhythm is regular, 1st Degree Block with No ectopy. QRS [place] is rt Normal. HI interval is normal. QRS interval is normal. QT interval is normal. No Q waves. Clinical impression: NSR w/ Non-specific ST/T Changes. Administered Medications: No medications were administered Disposition Summary: 01/22/23 16:54 Discharge Ordered Notes: Location: Home rt Problem: new rt Symptoms: have improved rt Condition: Stable rt Diagnosis - Influenza due to other identified influenza virus with gastrointestinal rt manifestations - Microscopic hematuria rt Followup: rt - With: Private Physician - When: 2 - 3 days - Reason: Followup: rt - With: Higinio Garcia MD - When: As scheduled - Reason: Discharge Instructions: - Discharge Summary Sheet rt - Hematuria, Adult rt - Influenza, Adult rt Forms: - Work release form eh3 - Medication Reconciliation Form rt - Thank You Letter rt - Antibiotic Education rt - Prescription Opioid Use rt - Patient Portal Instructions rt - Leadership Thank You Letter rt Prescriptions: - ondansetron 4 mg Oral Tablet,disintegrating - take 1 tablet ORAL route every 6 hours; 18 tablet; Refills: 0, Product rt Selection Permitted - Tamiflu 75 mg Oral capsule - take 1 tablet ORAL route every 12 hours for 5 days; 10 tablet; Refills: 0, rt Product Selection Permitted Signatures: Dispatcher [employer] Lazaro Veloz MD MD rt Melanie Kendrick, RN RN cm10
[2023-01-22 17:53] VITALS: TEMP 97.5
[2023-01-22 18:04] VITALS: BP 123/60; O2SAT 95
== END 2023-01-22 17:20 | disposition home or self-care (01) ==
LOC: ER 14:31
DX: J10.2 Influenza due to other identified influenza virus with gastrointestinal manifestations (principal); R31.29 Other microscopic hematuria; I10 Essential (primary) hypertension; Z11.52 Encounter for screening for COVID-19; Z88.5 Allergy status to narcotic agent; Z88.8 Allergy status to other drugs, medicaments and biological substances
CPT/HCPCS: 36415; 71045; 80048; 80076; 81001; 83735; 83880; 84484; 85025; 87077; 87086; 87088; 87186; 87804; 87811; 93005; 99284

== ENCOUNTER 2023-01-28 09:20 | Inpatient (IN) | payer BC, OTHER ==
--- OUTSIDE RECORDS SUMMARY | 2023-01-28 09:33 | XMS REPORT | Continuity of Care Document ---
:1945 Author Organization [facility] t Address [address] [place] [place] [address] Care Team Providers Name Role Phone Sharpless Primary Care Physician Lorrie Greene Attending Clinician Unavailable LORRIE GILMAN Attending Clinician Unavailable LORRIE GILMAN Admitting Clinician Unavailable Payers Payer Name Policy Type Policy Number Effective Date Expiration Date S [facility] Blue Cross 6 [id number] Common Spiri t [facility] Problems Condition Condition Condition Status Onset Resolution Last Treating Co mments Source Name Details Category Date Date Treatment Clinician Date HLD HLD Disease Recurre [facility] ([facility]lipi (hyperlipi nce 824 Peg kes demia) demia) 00:00: Medical 00 Center Prostate Prostate Disease Recurre Overview: [facility] cancer cancer nce [facility] [facility] 00:[facility]: g of this 00 note Center might be different from the original. S/p cryoablat ion Rheumatoid Rheumatoid Disease Recurre [facility] arthritis arthritis nce 8 [facility] 00:00: Medical 00 Center Type 2 Type [address] [facility] diabetes diabetes nce 7 [facility] mellitus mellitus 00:00: Medica l 00 [place] Hypothyroi Hypothyroi Disease Recurre [facility] d [...] 10-14 [facility] disease disease 00:00: Medical 00 [place] [id number] Cancer of Problem Comm on prostate Spirit with - [facility] intermedia te [facility] recurrence Medica l risk Center (stage T2b-c or [place] 7 or PSA 10-20) [id number] Status Problem Common post Spirit cryoablati - [facility] Allergies, Adverse Reactions, Alerts Allergy Allergy Status Severity Reaction(s) Onset Inactive Treating Comm ents Source Name Type Date Date Clinician Codeine Propi Active [facility] ty to 10-14 [facility] adverse 00:00: Medical reaction 00 [place] s Hydrocod Propensi Active [facility] one-Acet ty to 10-14 [facility] aminophe adverse 00:00: Medical n reaction 00 [place] Social History Social Habit Start Date Stop Date Quantity Comments Source History of [facility] - Tobacco Use [facility] Tobacco use and 2016-11-13 2016-11-13 Smokeless tobacco CH I [facility] exposure 00:00:00 00:00:00 non-user [facility] Alcohol intake 2016-11-13 2016-11-13 [facility]:00 non-drinker of [facility] nter alcohol (finding) Sex Assigned At [birth year] [facility] kes 00:00:00 00:00:00 [facility] Center Smoking Status Start Date Stop Date Source Never Smoker [facility] - [facility] Medications Ordered Filled Start Stop Current Ordering Indication Dosage Frequency Signature Comments Components Source Medication Medication Date Date Medication? Clinician (SIG) Name Name zinc Yes 220mg QD Take [address] sulfate 8-24 mg by [facility] (ZINCATE) 11:11: mouth Medical 220 (50) mg 52 daily. [place] capsule zinc Yes 220mg QD Take [address] sulfate 8-24 mg by [facility] (ZINCATE) 11:11: mouth Medical 220 (50) mg 52 daily. [place] capsule liothyronin 2016- Yes 25ug QD Take [address] (CYTOMEL) 8-24 mcg by [facility] 25 MCG 11:11: mouth Medical tablet 08 daily. [place] finasteride Yes 5mg QD Take [address] (PROSCAR) 5 8-24 by mouth Luke s mg tablet 11:11: daily. Medica l 08 [place] aspirin 81 0 Yes 81mg QD Take [address] MG EC 8-24 by mouth [facility] tablet 11:11: daily. [facility] 08 [place] liothyronin Yes 25ug QD Take [address] e (CYTOMEL) 8-24 mcg by [facility] 25 MCG 11:11: mouth Medical tablet 08 daily. [place] finasteride Yes 5mg QD Take [address] (PROSCAR) 5 8-24 by mouth Luke s mg tablet 11:11: daily. Medica l 08 [place] aspirin 81 0 Yes 81mg QD Take [address] MG EC 8-24 by mouth [facility] tablet 11:11: daily. [facility] 08 [place] tamsulosin Yes .4mg QD Take 1 [facility] t (FLOMAX) 8-18 capsule [facility] 0.4 mg Cp24 00:00: (0.4 mg Med ical 24 hr 00 total) by Center capsule mouth daily. tamsulosin 0 Yes .4mg QD Take 1 [facility] S [...] InPn three times a day. insulin pen 2017-0 Yes Use as [facility] needles (BD 8-16 directed. [place] ULTRA-FINE 00:00: Dispense Med ical SLICK) 4 mm 00 as Center x 32 G written, do not substitute . Brand medically necessary. To use 6 a day. apixaban 2017-0 Yes 5mg Q.5D Take [address] (ELIQUIS) 5 8-16 tablet (5 [place] mg Tab 00:00: mg total) Medica l tablet 00 by mouth 2 Center (two) times daily. DOBUTamine 2017-0 Yes 447ug/m Inject [address] (DOBUTREX) 8-16 in mcg/min [facility] 1,000 00:00: intravenou Medica l mg/250 mL 00 sly Center (4,000 continuous mcg/mL) . infusion famotidine 2016-0 Yes 20mg QD Take 1 [facility] t (PEPCID) 20 8-16 tablet (20 Peg kes MG tablet 00:00: mg total) Med ical 00 by mouth Center nightly. insulin 2016-0 Yes To use 15 [facility] t detemir 8-16 units q am [facility] (LEVEMIR 00:00: and 3 Medical FLEXTOUCH) 00 units q 9 Cent er 100 unit/mL pm. (3 mL) InPn injection insulin 2016-0 Yes To use via [facility] aspart 8-16 sliding [facility] (NOVOLOG 00:00: scale from Med ical FLEXPEN) 00 3 units to Cente r 100 unit/mL 20 units InPn three times a day. insulin pen 2016-0 Yes Use as [facility] needles (BD 8-16 directed. [place] ULTRA-FINE 00:00: Dispense Med ical SLICK) 4 mm 00 as Center x 32 G written, do not substitute . Brand medically necessary. To use 6 a day. apixaban 2017-0 Yes 5mg Q.5D Take [address] (ELIQUIS) 5 8-16 tablet (5 [place] mg Tab 00:00: mg total) Medica l tablet 00 by mouth 2 Center (two) times daily. DOBUTamine 2017-0 Yes 447ug/m Inject [address] (DOBUTREX) 8-16 in mcg/min [facility] 1,000 00:00: intravenou Medica l mg/250 mL 00 sly Center (4,000 continuous mcg/mL) . infusion famotidine 2017-0 Yes 20mg QD Take 1 CHI S [...] Comments Source height 2022-01-01 11:00:00 72 [in_i] [facility] weight 2022-01-01 11:00:00 204 [lb_av] [facility] temperature 2022-01-01 11:00:00 98.2 [degF] [facility] bmi 2022-01-01 11:00:00 27.66 kg/m2 [facility] oximetry 2022-01-01 11:00:00 97 % [facility] respiratory rate 2022-01-01 11:00:00 16 /min Comm on [facility] blood pressure 2022-01-01 11:00:00 145 mm[Hg] [facility] - systolic [facility] blood pressure 2022-01-01 11:00:00 61 mm[Hg] [facility] - diastolic [facility] height 2020-12-31 11:00:00 72 [in_i] Common [facility] weight 2020-12-31 11:00:00 195 [lb_av] Common S pirit [facility] temperature 2020-12-31 11:00:00 98.2 [degF] [facility] bmi 2020-12-31 11:00:00 26.44 kg/m2 [facility] S [facility] oximetry 2020-12-31 11:00:00 98 % Common S [facility] blood pressure 2020-12-31 11:00:00 109 mm[Hg] [facility] - systolic [facility] blood pressure 2020-12-31 11:00:00 54 mm[Hg] Common [facility] - diastolic [facility] Procedures This patient has no known procedures. Encounters Start End Encounter Admission Attending Care Care Encounter Source Date/Time Date/Time Type Type Clinicians Facility Department ID 2021-11-20 Outpatient Lorrie Greene [facility] ST[facility] [id number] Common 10:29:01 [id number] [facility] 2021-09-26 Outpatient Lorrie Greene [facility] ST[facility] [id number] - Common 09:06:01 [id number] [facility] 2021-04-17 Outpatient ST[facility] STLC [id number] Common 13:00:48 [id number] [facility] 2021-04-17 Outpatient STLC STLMLC [id number] Common 12:04:30 [id number] [facility] 2022-01-01 2022-01-01 OFFICE STLC STLMLC [id number] Co mmon 00:00:00 00:00:00 VISIT [facility] LEVEL 2 [facility] 2021-09-26 2021-09-26 (TEL) STLC STLMLC [id number] Co mmon 00:00:00 00:00:00 [facility] 2021-02-12 2021-02-12 (TEL) STLMLC STLC [id number] Co mmon 00:00:00 00:00:00 [facility] 2020-12-31 2020-12-31 OFFICE STLMLC STLC [id number] Co mmon 00:00:00 00:00:00 VISIT [facility] LEVEL 2 [facility] 2020-02-02 2020-02-02 Outpatient STLC STLC [id number] Common 00:00:00 00:00:00 [facility] Results Test Description Test Time Test Comments Results Result Comments Source B-TYPE NATRIURETIC FACTOR (BNP) 2016-11-13 13:04:00 Test Item Value Reference Range Interpretation Comme nts B-TYPE NATRIURETIC PEPTIDE (BEAKER) (test code = 700) 1327 pg/mL 0-100 H [id number] 12:58:00 Test Item Value Reference Range Interpretation Comments MAGNESIUM (BEAKER) (test code = 1.5 mg/dL 1.6-2.6 L 627) BASIC METABOLIC [id number] 12:58:00 Test Item Value Reference Range Interpretation [...] NOT APPLICABLE FOR DIALYSIS PATIEN TS. POCT-GLUCOSE [id number] 13:01:00 Test Item Value Reference Range Interpretation Comments POC-GLUCOSE METER 210 mg/dL 70-[address] [facility] [address] (BEAKER) (test code = NERY De Jesus [place] 1538) [address] POCT-GLUCOSE [id number] 08:40:00 Test Item Value Reference Range Interpretation Comments POC-GLUCOSE METER 150 mg/dL 70-[address] [facility] [address] (BEAKER) (test code = NERY De Jesus [place] 1538) [address] BASIC METABOLIC [id number] 06:02:00 Test Item Value Reference Range Interpretation [...] PATIEN TS. CBC W/PLT COUNT & AUTO [id number] 05:58:00 Test Item Value Reference Range Interpretation [...] PERCENT (BEAKER) (test code = 2801) POCT-GLUCOSE [id number] 21:47:00 Test Item Value Reference Range Interpretation Comments POC-GLUCOSE METER 98 mg/dL 70-[address] [facility] [address] (BEAKER) (test code = [place] [address] 1538) POCT-GLUCOSE [id number] 17:12:00 Test Item Value Reference Range Interpretation Comments POC-GLUCOSE METER 173 mg/dL 70-110 H TEST[facility] AT [place] [address] [facility] (test code = NERY De Jesus [place] 1538) [address] POCT-GLUCOSE [id number] 12:15:00 Test Item Value Reference Range Interpretation Comments POC-GLUCOSE METER 202 mg/dL 70-110 H TESTED AT [place] [address] [facility] (test code = NERY De Jesus [place] 1538) [address] URINE [id number] 10:38:00 Test Item Value Reference Range Interpretation Comments CULTURE (BEAKER) (test A >100, 000 col/mL Gerri code = 1095) albicans GRAM STAIN RESULT <1+ WBCs (BEAKER) (test code = 1123) GRAM STAIN RESULT 3+ yeast (BEAKER) (test code = 85590) POCT-GLUCOSE [id number] 07:51:00 Test Item Value Reference Range Interpretation Comments POC-GLUCOSE METER 165 mg/dL 70-110 H TESTED AT [place] [address] ([facility]) (test code = NERY De Jesus [facility] 1538) [address] BASIC METABOLIC [id number] 07:02:00 Test Item Value Reference Range Interpretation [...] PATIEN TS. CBC W/PLT COUNT & AUTO [id number] 07:00:00 Test Item Value Reference Range Interpretation [...] (BEAKER) (test code = 2801) OXYGEN SATURATION, [id number] 06:11:00 Test Item Value Reference Range Interpretation Comments O2 SATURATION (MEASURED) ([facility]) 95.5 % (test code = 1455) Please get mixed venous blood gas from the PICC line portPOCT-GLUCOSE METER 2016-11-05 22:09:00 Test Item Value Reference Range Interpretation Comments POC-GLUCOSE METER 153 mg/dL 70-110 H TESTED AT [place] [address] ([facility]) (test code = NERY De Jesus [facility] 1538) [address] POCT-GLUCOSE [id number] 21:01:00 Test Item Value Reference Range Interpretation Comments POC-GLUCOSE METER 61 mg/dL 70-110 L Notified Neal Harmon MD/TESTED AT ([facility]) (test code = [place] [address] [facility] [address] POCT-GLUCOSE [id number] 17:03:00 Test Item Value Reference Range Interpretation Comments POC-GLUCOSE METER 87 mg/dL 70-110 TESTED AT [place] [address] ([facility]) (test code = NERY De Jesus [facility] [address] 1538) POCT-GLUCOSE [id number] 16:42:00 Test Item Value Reference Range Interpretation Comments POC-GLUCOSE METER 62 mg/dL 70-110 L Notified Neal Harmon MD/TESTED AT ([facility]) (test code = [place] [address] [facility]) [facility] [address] 0 POCT-GLUCOSE [id number] 11:42:00 Test Item Value Reference Range Interpretation Comments POC-GLUCOSE METER 125 mg/dL 70-110 H TESTED AT [place] [address] ([facility]) (test code = NERY De Jesus [facility] 1538) [address] POCT-GLUCOSE [id number] 07:52:00 Test Item Value Reference Range Interpretation Comments POC-GLUCOSE METER 150 mg/dL 70-110 H TESTED AT [place] [address] ([facility]) (test code = NERY De Jesus [facility] 1538) [address] OXYGEN SATURATION, [id number] 07:30:00 Test Item Value Reference Range Interpretation Comments O2 SATURATION (MEASURED) ([facility]) 96.3 % (test code = 1455) Please get mixed venous blood gas from the PICC line portCBC W/PLT COUNT & AUTO [id number] 06:47:00 Test Item Value Reference Range Interpretation [...] (BEAKER) (test code = 2801) HEPATIC FUNCTION [id number] 06:41:00 Test Item Value Reference Range Interpretation [...] = 29 U/L 6-55 347) BASIC METABOLIC [id number] 06:41:00 Test Item Value Reference Range Interpretation [...] NOT APPLICABLE FOR DIALYSIS PATIEN TS. POCT-GLUCOSE [id number] 21:00:00 Test Item Value Reference Range Interpretation Comments POC-GLUCOSE METER 169 mg/dL 70-110 H TESTED AT [place] [id number] (BEAKER) (test code = NERY De Jesus [facility] 1538) [address] POCT-GLUCOSE [id number] 19:37:00 Test Item Value Reference Range Interpretation Comments POC-GLUCOSE METER 114 mg/dL 70-[address] [facility] [address] (BEAKER) (test code = NERY De Jesus [facility] 1538) [address] URINALYSIS W/ [id number] 19:32:00 Test Item Value Reference Range Interpretation [...] 514) YEAST (BEAKER) (test code = Few 1585) SOURCE(BEAKER) (test code = Urine, Chakraborty 9724) POCT-GLUCOSE [id number] 17:51:00 Test Item Value Reference Range Interpretation Comments POC-GLUCOSE METER 76 mg/dL 70-[address] [facility] [address] (BEAKER) (test code = [facility] Neal [facility] [address]38) BASIC METABOLIC [id number] 16:25:00 Test Item Value Reference Range Interpretation [...] 358) GLUCOSE RANDOM 63 mg/dL 70-105 L (BEAKER) (test code = 652) CALCIUM (BEAKER) 8.5 mg/dL 8.4-10.2 (test code = 697) EGFR (BEAKER) (test 57 mL/min/1.73 ESTIMA MARIA DOLORES GFR IS code = 1092) sq m NOT ACCURATE CREATININE CLEARANCE IN PREDICTING GLOMERULAR FILTRATION RATE . ESTIMATED GFR I S NOT APPLICABLE FOR DIALYSIS PATIEN TS. OXYGEN SATURATION, [id number] 15:57:00 Test Item Value Reference Range Interpretation Comments O2 SATURATION (MEASURED) ([facility]) 94.9 % (test code = 1455) Please get mixed venous blood gas from the PICC line portPOCT-GLUCOSE METER 2016-11-04 12:34:00 Test Item Value Reference Range Interpretation Comments POC-GLUCOSE METER 183 mg/dL 70-110 H TESTED AT [place] [address] ([facility]) (test code = NERY De Jesus [facility] 1538) [address] POCT-GLUCOSE [id number] 09:04:00 Test Item Value Reference Range Interpretation Comments POC-GLUCOSE METER 149 mg/dL 70-110 H TESTED AT [place] [address] ([facility]) (test code = NERY De Jesus [facility] 1538) [address] POCT-GLUCOSE [id number] 21:28:00 Test Item Value Reference Range Interpretation Comments POC-GLUCOSE METER 145 mg/dL 70-110 H TESTED AT [place] [address] ([facility]) (test code = NERY De Jesus [facility] 1538) [address] POCT-GLUCOSE [id number] 19:45:00 Test Item Value Reference Range Interpretation Comments POC-GLUCOSE METER 36 mg/dL 70-110 LL Notified R Eden SKELTON/TESTED AT ([facility]) (test code = [address] [address]) [facility] [address] POCT-GLUCOSE [id number] 16:49:00 Test Item Value Reference Range Interpretation Comments POC-GLUCOSE METER 116 mg/dL 70-110 H TESTED AT [place] [address] (BEAKER) (test code = NERY De Jesus [facility] 1538) [address] POCT-GLUCOSE [id number] 12:09:00 Test Item Value Reference Range Interpretation Comments POC-GLUCOSE METER 197 mg/dL 70-110 H TESTED AT [place] [address] (BEAKER) (test code = OBIN[place]IN Neal [facility] 1538) [address] OXYGEN SATURATION, [id number] 08:41:00 Test Item Value Reference Range Interpretation Comments O2 SATURATION (MEASURED) (AKER) 68.6 % (test code = 1455) POCT-GLUCOSE [id number] 07:39:00 Test Item Value Reference Range Interpretation Comments POC-GLUCOSE METER 158 mg/dL 70-110 H TESTED AT [place] [address] [facility] (test code = OBINNAIN Neal [facility] 1538) [address] [id number] 06:59:00 Test Item Value Reference Range Interpretation Comments MAGNESIUM (BEAKER) (test code = 2.3 mg/dL 1.6-2.6 627) BASIC METABOLIC [id number] 06:59:00 Test Item Value Reference Range Interpretation [...] PATIEN TS. CBC W/PLT COUNT & AUTO [id number] 05:36:00 Test Item Value Reference Range Interpretation [...] EOSINOPHILS ABSOLUTE COUNT 0.44 K/ L 0.04-0.54 ([facility]) (test code = 416) BASOPHILS ABSOLUTE COUNT ([facility]) 0.04 K/ L 0.01-0.08 (test code = 417) IMMATURE GRANULOCYTES-RELATIVE 1 % 0-1 PERCENT ([facility]) (test code = 2801) POCT-GLUCOSE [id number] 01:47:00 Test Item Value Reference Range Interpretation Comments POC-GLUCOSE METER 133 mg/dL 70-110 H TESTED AT [place] [address] ([facility]) (test code = NERY De Jesus [facility] 1538) [address] POCT-GLUCOSE [id number] 22:09:00 Test Item Value Reference Range Interpretation Comments POC-GLUCOSE METER 94 mg/dL 70-110 TESTED AT [place] [address] ([facility]) (test code = NERY De Jesus [facility] [address] 1538) POCT-GLUCOSE [id number] 20:22:00 Test Item Value Reference Range Interpretation Comments POC-GLUCOSE METER 70 mg/dL 70-110 TESTED AT [place] [address] ([facility]) (test code = NERY De Jesus [facility] [address] 1538) POCT-GLUCOSE [id number] 20:21:00 Test Item Value Reference Range Interpretation Comments POC-GLUCOSE METER 93 mg/dL 70-110 TESTED AT [place] [address] ([facility]) (test code = NERY De Jesus [facility] [address] 1538) POCT-GLUCOSE [id number] 20:17:00 Test Item Value Reference Range Interpretation Comments POC-GLUCOSE METER 222 mg/dL 70-110 H TESTED AT [place] [address] ([facility]) (test code = NERY De Jesus [facility] 1538) [address] POCT-GLUCOSE [id number] 20:05:00 Test Item Value Reference Range Interpretation Comments POC-GLUCOSE METER 142 mg/dL 70-110 H TESTED AT [place] [address] ([facility]) (test code = NERY De Jesus [facility] 1538) [address] POCT-GLUCOSE [id number] 20:01:00 Test Item Value Reference Range Interpretation Comments POC-GLUCOSE METER 80 mg/dL 70-110 TESTED AT [place] [address] ([facility]) (test code = NERY De Jesus [facility] [address] 1538) POCT-GLUCOSE [id number] 19:56:00 Test Item Value Reference Range Interpretation Comments POC-GLUCOSE METER 151 mg/dL 70-110 H TESTED AT [place] [address] (BEAKER) (test code = NERY De Jesus [place] 1538) [address] [id number] 15:40:00 Test Item Value Reference Range Interpretation Comments MAGNESIUM (BEAKER) (test code = 1.9 mg/dL 1.6-2.6 627) [id number] 15:40:00 Test Item Value Reference Range Interpretation Comments POTASSIUM (BEAKER) (test code = 3.6 meq/L 3.5-5.1 379) OXYGEN SATURATION, [id number] 12:59:00 Test Item Value Reference Range Interpretation Comments O2 SATURATION (MEASURED) (BEAKER) 68.7 % (test code = 1455) OXYGEN SATURATION, [id number] 06:27:00 Test Item Value Reference Range Interpretation Comments O2 SATURATION (MEASURED) (BEAKER) 68.9 % (test code = 1455) [id number] 19:45:00 Test Item Value Reference Range Interpretation Comments MAGNESIUM (BEAKER) (test code = 2.1 mg/dL 1.6-2.6 627) [id number] 19:45:00 Test Item Value Reference Range Interpretation Comments POTASSIUM (BEAKER) (test code = 4.1 meq/L 3.5-5.1 379) OXYGEN SATURATION, [id number] 19:12:00 Test Item Value Reference Range Interpretation Comments O2 SATURATION (MEASURED) (BEAKER) 55.0 % (test code = 1455) POCT-GLUCOSE [id number] 11:52:00 Test Item Value Reference Range Interpretation Comments POC-GLUCOSE METER 237 mg/dL 70-110 H TESTED AT [place] [address] (BEAKER) (test code = NERY De Jesus [place] 1538) [address] POCT-GLUCOSE [id number] 07:46:00 Test Item Value Reference Range Interpretation Comments POC-GLUCOSE METER 155 mg/dL 70-110 H TESTED AT [place] [address] (BEAKER) (test code = NERY De Jesus [place] 1538) [address] [id number] 04:52:00 Test Item Value Reference Range Interpretation Comments MAGNESIUM (BEAKER) (test code = 1.7 mg/dL 1.6-2.6 627) BASIC METABOLIC [id number] 04:52:00 Test Item Value Reference Range Interpretation [...] PATIEN TS. CBC W/PLT COUNT & AUTO [id number] 04:43:00 Test Item Value Reference Range Interpretation [...] PERCENT (BEAKER) (test code = 2801) POCT-GLUCOSE [id number] 22:55:00 Test Item Value Reference Range Interpretation Comments POC-GLUCOSE METER 154 mg/dL 70-110 H TESTED AT [place] [address] ([facility]) (test code = NERY De Jesus [facility] 1538) [address] POCT-GLUCOSE [id number] 17:41:00 Test Item Value Reference Range Interpretation Comments POC-GLUCOSE METER 106 mg/dL 70-110 TESTED AT [place] [address] ([facility]) (test code = NERY De Jesus [facility] 1538) [address] POCT-GLUCOSE [id number] 12:37:00 Test Item Value Reference Range Interpretation Comments POC-GLUCOSE METER 170 mg/dL 70-110 H TESTED AT [place] [address] ([facility]) (test code = [facility] Neal [facility] 1538) [address] VITAMIN D, [id number] 10:42:00 Test Item Value Reference Range Interpretation Comments VITAMIN D 25-OH (BEAKER) (test 16.1 ng/mL 13.0-47.8 code = 2764) POCT-GLUCOSE [id number] 06:35:00 Test Item Value Reference Range Interpretation Comments POC-GLUCOSE METER 137 mg/dL 70-[address] [facility] [address] (BEAKER) (test code = NERY [place] 1538) [address] OXYGEN SATURATION, [id number] 05:20:00 Test Item Value Reference Range Interpretation Comments O2 SATURATION (MEASURED) (BEAKER) 63.0 % (test code = 1455) BASIC METABOLIC [id number] 04:35:00 Test Item Value Reference Range Interpretation [...] PATIEN TS. CBC W/PLT COUNT & AUTO [id number] 04:32:00 Test Item Value Reference Range Interpretation [...] % 0-1 PERCENT (BEAKER) (test code = 2809) POCT-GLUCOSE [id number] 21:23:00 Test Item Value Reference Range Interpretation Comments POC-GLUCOSE METER 135 mg/dL 70-[address] [facility] [address] (BEAKER) (test code = NERY MOREAU 1538) [address] POCT-GLUCOSE [id number] 18:20:00 Test Item Value Reference Range Interpretation Comments POC-GLUCOSE METER 80 mg/dL 70-110 [facility] [place] [address] [facility] (test code = NERY De Jesus [facility] [address] 1538) POCT-GLUCOSE [id number] 16:50:00 Test Item Value Reference Range Interpretation Comments POC-GLUCOSE METER 71 mg/dL 70-110 TESTED AT [place] [address] [facility] (test code = NERY De Jesus [facility] [address] 1538) POCT-GLUCOSE [id number] 12:30:00 Test Item Value Reference Range Interpretation Comments POC-GLUCOSE METER 117 mg/dL 70-110 H TESTED AT [place] [address] ([facility] (test code = [facility] Neal [facility] 1538) [address] OXYGEN SATURATION, [id number] 08:46:00 Test Item Value Reference Range Interpretation Comments O2 SATURATION (MEASURED) (AKER) 66.5 % (test code = 1455) From p iccPOCT-GLUCOSE [id number] 07:53:00 Test Item Value Reference Range Interpretation Comments POC-GLUCOSE METER 150 mg/dL 70-110 H TESTED AT [place] [address] (BEAKER) (test code = [facility] Neal [facility] 1538) [address] BASIC METABOLIC [id number] 03:06:00 Test Item Value Reference Range Interpretation [...] S NOT APPLICABLE FOR DIALYSIS PATIEN TS. [id number] 02:57:00 Test Item Value Reference Range Interpretation Comments MAGNESIUM (BEAKER) (test code = 1.8 mg/dL 1.6-2.6 627) CBC W/PLT COUNT & AUTO [id number] 02:46:00 Test Item Value Reference Range Interpretation [...] PERCENT (BEAKER) (test code = 2801) POCT-GLUCOSE [id number] 22:00:00 Test Item Value Reference Range Interpretation Comments POC-GLUCOSE METER 180 mg/dL 70-[address] [facility] 67 (BEAKER) (test code = [facility] 1538) [address] POCT-GLUCOSE [id number] 17:30:00 Test Item Value Reference Range Interpretation Comments POC-GLUCOSE METER 200 mg/dL 70-110 H TESTED AT [place] [address] ([facility]) (test code = [facility] 1538) [address] POCT-GLUCOSE [id number] 12:26:00 Test Item Value Reference Range Interpretation Comments POC-GLUCOSE METER 196 mg/dL 70-110 H TESTED AT [place] [address] ([facility] (test code = [facility] 1538) [address]79 POCT-GLUCOSE [id number] 08:00:00 Test Item Value Reference Range Interpretation Comments POC-GLUCOSE METER 105 mg/dL 70-110 TESTED AT [place] [address] (BEAKER) (test code = [facility] 1538) [address] BASIC METABOLIC [id number] 03:10:00 Test Item Value Reference Range Interpretation [...] PATIEN TS. CBC W/PLT COUNT & AUTO [id number] 02:59:00 Test Item Value Reference Range Interpretation [...] PERCENT (BEAKER) (test code = 2801) POCT-GLUCOSE [id number] 21:36:00 Test Item Value Reference Range Interpretation Comments POC-GLUCOSE METER 105 mg/dL 70-110 TESTED AT [place] [address] ([facility]) (test code = NERY De Jesus [facility] 1538) [address] POCT-GLUCOSE [id number] 18:33:00 Test Item Value Reference Range Interpretation Comments POC-GLUCOSE METER 155 mg/dL 70-110 H TESTED AT [place] [address] ([facility]) (test code = NERY De Jesus [facility] 1538) [address]120 POCT-GLUCOSE [id number] 14:12:00 Test Item Value Reference Range Interpretation Comments POC-GLUCOSE METER 347 mg/dL 70-110 H Notified Neal Harmon MD/TESTED ([facility]) (test code = AT [address] 1538) [facility] [address] POCT-GLUCOSE [id number] 08:41:00 Test Item Value Reference Range Interpretation Comments POC-GLUCOSE METER 113 mg/dL 70-110 H TESTED AT [place] [address] ([facility]) (test code = NERY De Jesus [facility] 1538) [address] BASIC METABOLIC [id number] 06:04:00 Test Item Value Reference Range Interpretation [...] S NOT APPLICABLE FOR DIALYSIS PATIEN TS. [id number] 05:59:00 Test Item Value Reference Range Interpretation Comments MAGNESIUM (BEAKER) (test code = 2.1 mg/dL 1.6-2.6 627) CBC W/PLT COUNT & AUTO [id number] 05:44:00 Test Item Value Reference Range Interpretation [...] ABSOLUTE COUNT 10.39 K/ L 1.78-5.38 H (BEAKER) (test code [...] PERCENT (BEAKER) (test code = 2801) POCT-GLUCOSE [id number] 21:59:00 Test Item Value Reference Range Interpretation Comments POC-GLUCOSE METER 146 mg/dL 70-110 H TESTED AT [place] [address] ([facility]) (test code = [facility] 1538) [address] POCT-GLUCOSE [id number] 19:45:00 Test Item Value Reference Range Interpretation Comments POC-GLUCOSE METER 90 mg/dL 70-110 TESTED AT [place] [address] ([facility]) (test code = [facility] [address] 1538) POCT-GLUCOSE [id number] 18:41:00 Test Item Value Reference Range Interpretation Comments POC-GLUCOSE METER 56 mg/dL 70-110 L TESTED AT [place] [address] ([facility]) (test code = [facility] [address] 1538) OXYGEN SATURATION, [id number] 18:02:00 Test Item Value Reference Range Interpretation Comments O2 SATURATION (MEASURED) ([facility]) 65.3 % (test code = 1455) POCT-GLUCOSE [id number] 13:05:00 Test Item Value Reference Range Interpretation Comments POC-GLUCOSE METER 138 mg/dL 70-110 H TESTED AT [place] [address] ([facility]) (test code = [facility] 1538) 67[address] POCT-GLUCOSE [id number] 07:30:00 Test Item Value Reference Range Interpretation Comments POC-GLUCOSE METER 70 mg/dL 70-[address] [facility] 6720 (BEAKER) (test [place] = [place] [address] 1375) CBC W/PLT COUNT & AUTO [id number] 05:50:00 Test Item Value Reference Range Interpretation [...] 0-1 PERCENT (BEAKER) (test code = 2801) [id number] 05:44:00 Test Item Value Reference Range Interpretation Comments MAGNESIUM (BEAKER) (test code = 2.3 mg/dL 1.6-2.6 627) BASIC METABOLIC [id number] 05:44:00 Test Item Value Reference Range Interpretation [...] APPLICABLE FOR DIALYSIS PATIEN TS. HEPATIC FUNCTION [id number] 05:44:00 Test Item Value Reference Range Interpretation [...] 0-100 H (test code = 700) POCT-GLUCOSE [id number] 21:47:00 Test Item Value Reference Range Interpretation Comments POC-GLUCOSE METER 93 mg/dL 70-110 TESTED AT [place] [address] ([facility]) (test code = [facility] [address] 1538) POCT-GLUCOSE [id number] 18:06:00 Test Item Value Reference Range Interpretation Comments POC-GLUCOSE METER 81 mg/dL 70-110 TESTED AT [place] [address] ([facility]) (test code = [facility] [address] 1538) BASIC METABOLIC [id number] 15:40:00 Test Item Value Reference Range Interpretation [...] Reference Range Interpretation Comments B-TYPE NATRIURETIC PEPTIDE ([facility]) 667 pg/mL 0-100 H (test code = 700) POCT-GLUCOSE [id number] 12:53:00 Test Item Value Reference Range Interpretation Comments POC-GLUCOSE METER 132 mg/dL 70-110 H TESTED AT [place] [address] ([facility]) (test code = NERY De Jesus [place] 1538) [address] URINE [id number] 10:15:00 Test Item Value Reference Interpretation Comments Range CULTURE ([facility]) (test ENTEROBACTER A >100, 000 col/mL code [...] S Sulfamethoxazole (test code = 47) POCT-GLUCOSE [id number] 08:21:00 Test Item Value Reference Range Interpretation Comments POC-GLUCOSE METER 80 mg/dL 70-110 TESTED AT [place] [address] ([facility]) (test code = NERY De Jesus [facility] [address] 1538) POCT-GLUCOSE [id number] 07:48:00 Test Item Value Reference Range Interpretation Comments POC-GLUCOSE METER 68 mg/dL 70-110 L TESTED AT [place] [address] ([facility]) (test code = NERY De Jesus [facility] [address] 1538) OXYGEN SATURATION, [id number] 06:44:00 Test Item Value Reference Range Interpretation Comments O2 SATURATION (MEASURED) ([facility]) 72.0 % (test code = 1455) [id number] 06:06:00 Test Item Value Reference Range Interpretation Comments MAGNESIUM ([facility]) (test code = 2.2 mg/dL 1.6-2.6 627) BASIC METABOLIC [id number] 06:06:00 Test Item Value Reference Range Interpretation [...] PATIEN TS. CBC W/PLT COUNT & AUTO [id number] 05:57:00 Test Item Value Reference Range Interpretation [...] PERCENT (BEAKER) (test code = 2801) POCT-GLUCOSE [id number] 05:03:00 Test Item Value Reference Range Interpretation Comments POC-GLUCOSE METER 71 mg/dL 70-110 TESTED AT [place] [address] ([facility]) (test code = NERY De Jesus [facility] [address] 1538) POCT-GLUCOSE [id number] 22:42:00 Test Item Value Reference Range Interpretation Comments POC-GLUCOSE METER 112 mg/dL 70-110 H TESTED AT [place] [address] ([facility]) (test code = NERY De Jesus [facility] 1538) [address] POCT-GLUCOSE [id number] 21:31:00 Test Item Value Reference Range Interpretation Comments POC-GLUCOSE METER 58 mg/dL 70-110 L Notified Neal Harmon MD/TESTED AT ([facility]) (test code = [place] [address] [place] 1538) [facility] 7703 0 POCT-GLUCOSE [id number] 16:10:00 Test Item Value Reference Range Interpretation Comments POC-GLUCOSE METER 89 mg/dL 70-110 TESTED AT [place] [address] ([facility]) (test code = NERY De Jesus [facility] [address] 1538) POCT-GLUCOSE [id number] 13:08:00 Test Item Value Reference Range Interpretation Comments POC-GLUCOSE METER 81 mg/dL 70-110 TESTED AT [place] [address] ([facility]) (test code = NERY De Jesus [facility] [address] 1538) POCT-GLUCOSE [id number] 12:39:00 Test Item Value Reference Range Interpretation Comments POC-GLUCOSE METER 68 mg/dL 70-110 L Notified R Eden SKELTON/TESTED AT ([facility]) (test code = [place] [address] [place] 1538) [place] [address] 0 BASIC METABOLIC [id number] 11:54:00 Test Item Value Reference Range Interpretation [...] NOT APPLICABLE FOR DIALYSIS PATIEN TS. POCT-GLUCOSE [id number] 08:04:00 Test Item Value Reference Range Interpretation Comments POC-GLUCOSE METER 128 mg/dL 70-110 H TESTED AT [place] [address] ([facility]) (test code = NERY De Jesus [facility] 1538) [address] OXYGEN SATURATION, [id number] 06:17:00 Test Item Value Reference Range Interpretation Comments O2 SATURATION (MEASURED) (BEAKER) 68.7 % (test code = 1455) [id number] 05:30:00 Test Item Value Reference Range Interpretation Comments CORTISOL, TOTAL (BEAKER) (test 13.8 ug/dL 3.7-19.4 code = 2755) POCT-GLUCOSE [id number] 20:36:00 Test Item Value Reference Range Interpretation Comments POC-GLUCOSE METER 158 mg/dL 70-110 H TESTED AT [place] [address] [facility] (test code = [facility] 1538) 31250 HEMOGLOBIN AND [id number] 14:16:00 Test Item Value Reference Range Interpretation Comments HEMOGLOBIN (BEAKER) (test code = 8.4 GM/DL 13.7-17.5 L 410) HEMATOCRIT (BEAKER) (test code = 25.5 % 40.1-51.0 L 411) POCT-GLUCOSE [id number] 11:57:00 Test Item Value Reference Range Interpretation Comments POC-GLUCOSE METER 205 mg/dL 70-110 H TESTED AT [place] [address] ([facility]) (test code = [facility] 1538) [address] OSMOLALITY, [id number] 11:29:00 Test Item Value Reference Range Interpretation Comments OSMOLALITY URINE (BEAKER) (test 377 mOsm/kg 40-1400 code = 614) OSMOLALITY, [id number] 11:29:00 Test Item Value Reference Range Interpretation Comments OSMOLALITY, SERUM (BEAKER) (test 296 mOsm/kg 275-295 H code = 615) SODIUM, RANDOM [id number] 11:17:00 Test Item Value Reference Range Interpretation Comments SODIUM URINE (BEAKER) (test code = 36 meq/L 243) Reference Range: No NormalsOXYGEN SATURATION, [id number] 10:45:00 Test Item Value Reference Range Interpretation Comments O2 SATURATION (MEASURED) (BEAKER) 60.9 % (test code = 1455) POCT-GLUCOSE [id number] 08:33:00 Test Item Value Reference Range Interpretation Comments POC-GLUCOSE METER 172 mg/dL 70-110 H TESTED AT [place] [address] (BEAKER) (test code = [facility] [place] 1538) [address] BASIC METABOLIC [id number] 07:16:00 Test Item Value Reference Range Interpretation Comments SODIUM (BEAKER) 128 meq/L 136-145 L (test code = 381) POTASSIUM (BEAKER) 5.0 meq/L 3.5-5.1 (test code = 379) CHLORIDE (BEAKER) 95 meq/L 98-107 L (test code = 382) CO2 (BEAKER) (test 26 meq/L 22-29 code = 355) BLOOD UREA NITROGEN 58 mg/dL 7-21 H (BEAKER) (test code = [...] S NOT APPLICABLE FOR DIALYSIS PATIEN TS. [id number] 07:14:00 Test Item Value Reference Range Interpretation Comments MAGNESIUM (BEAKER) (test code = 2.0 mg/dL 1.6-2.6 627) POCT-GLUCOSE [id number] 23:28:00 Test Item Value Reference Range Interpretation Comments POC-GLUCOSE METER 213 mg/dL 70-110 H TESTED AT [place] [address] ([facility]) (test code = NERY De Jesus [facility] 1538) [address] POCT-GLUCOSE [id number] 17:20:00 Test Item Value Reference Range Interpretation Comments POC-GLUCOSE METER 246 mg/dL 70-110 H TESTED AT [place] [address] ([facility]) (test code = NERY De Jesus [facility] 1538) [address]07 POCT-GLUCOSE [id number] 12:22:00 Test Item Value Reference Range Interpretation Comments POC-GLUCOSE METER 325 mg/dL 70-110 H Notified R Eden SKELTON/TESTED ([facility]) (test code = AT [address] 1538) [facility] 7703 0 POCT-GLUCOSE [id number] 08:07:00 Test Item Value Reference Range Interpretation Comments POC-GLUCOSE METER 199 mg/dL 70-110 H TESTED AT [place] [address] ([facility]) (test code = NERY De Jesus [facility] 6115) [address] TSH/FREE T4 IF [id number] 04:46:00 Test Item Value Reference Range Interpretation Comments THYROID STIMULATING HORMONE 3.07 uIU/mL 0.35-4.94 (BEAKER) (test code = 772) BASIC METABOLIC [id number] 04:30:00 Test Item Value Reference Range Interpretation [...] S NOT APPLICABLE FOR DIALYSIS PATIEN TS. [id number] 04:26:00 Test Item Value Reference Range Interpretation Comments MAGNESIUM (BEAKER) (test code = 2.0 mg/dL 1.6-2.6 627) CBC W/PLT COUNT & AUTO [id number] 04:16:00 Test Item Value Reference Range Interpretation [...] (BEAKER) (test code = 2801) OXYGEN SATURATION, [id number] 04:09:00 Test Item Value Reference Range Interpretation Comments O2 SATURATION (MEASURED) (BEAKER) 74.6 % (test code = 1455) From piccPOCT-GLUCOSE [id number] 21:46:00 Test Item Value Reference Range Interpretation Comments POC-GLUCOSE METER 277 mg/dL 70-[address] [facility] 67[address] ([facility]) (test code = NERY [place]AU 1538) [address] URINALYSIS W/ [id number] 17:56:00 Test Item Value Reference Range Interpretation [...] = 1585) Moderate SOURCE(BEAKER) (test code = 7024) TSH/FREE T4 IF [id number] 17:15:00 Test Item Value Reference Range Interpretation Comments THYROID STIMULATING HORMONE 2.91 uIU/mL 0.35-4.94 (BEAKER) (test code = 772) POCT-GLUCOSE [id number] 17:07:00 Test Item Value Reference Range Interpretation Comments POC-GLUCOSE METER 275 mg/dL 70-[address] [facility] 67[address] (BEAKER) (test code = NERY [place] 1538) [address] CREATININE, RANDOM [id number] 14:19:00 Test Item Value Reference Range Interpretation Comments CREATININE URINE (BEAKER) (test 20.8 mg/dL code = 375) Reference Range: No NormalsSODIUM, RANDOM [id number] 14:19:00 Test Item Value Reference Range Interpretation Comments SODIUM URINE (BEAKER) (test code = 48 meq/L 243) Reference Range: No NormalsUREA NITROGEN, RANDOM [id number] 14:19:00 Test Item Value Reference Range Interpretation Comments UREA NITROGEN URINE (BEAKER) (test 348 mg/dL code = 538) Reference Range: No NormalsPOCT-GLUCOSE [id number] 12:15:00 Test Item Value Reference Range Interpretation Comments POC-GLUCOSE METER 254 mg/dL 70-110 H TESTED AT [place] [address] [facility] (test code = NERY De Jesus [place] 1538) [address] POCT-GLUCOSE [id number] 07:43:00 Test Item Value Reference Range Interpretation Comments POC-GLUCOSE METER 163 mg/dL 70-110 H TESTED AT [place] [address] ([facility]) (test code = NERY De Jesus [place] 1538) [address] CBC (HEMOGRAM ONLY)2016-10-22 07:31:00 Test Item Value [...] (BEAKER) (test code = 413) BASIC METABOLIC [id number] 07:28:00 Test Item Value Reference Range Interpretation [...] S NOT APPLICABLE FOR DIALYSIS PATIEN TS. [id number] 07:25:00 Test Item Value Reference Range Interpretation Comments MAGNESIUM (BEAKER) (test code = 2.0 mg/dL 1.6-2.6 627) POCT-GLUCOSE [id number] 21:08:00 Test Item Value Reference Range Interpretation Comments POC-GLUCOSE METER 251 mg/dL 70-[address] [facility] 67[address] (BEAKER) (test code = N[place] 1538) [address] POCT-GLUCOSE [id number] 18:33:00 Test Item Value Reference Range Interpretation Comments POC-GLUCOSE METER 292 mg/dL 70-[address] [facility] 67[address] (BEAKER) (test code = NERY De Jesus [place] 1538) [address] POCT-GLUCOSE [id number] 13:14:00 Test Item Value Reference Range Interpretation Comments POC-GLUCOSE METER 230 mg/dL 70-[address] [facility] 67[address] (BEAKER) (test code = NERY De Jesus [place] 1538) [address] POCT-GLUCOSE [id number] 10:23:00 Test Item Value Reference Range Interpretation Comments POC-GLUCOSE METER 186 mg/dL 70-[address] [facility] 67[address] (BEAKER) (test code = NERY [place] 1538) [address] BASIC METABOLIC [id number] 04:32:00 Test Item Value Reference Range Interpretation [...] S NOT APPLICABLE FOR DIALYSIS PATIEN TS. [id number] 04:31:00 Test Item Value Reference Range Interpretation [...] MEAN CORPUSCULAR HEMOGLOBIN CONC 34.2 GM/DL 32.3-36.5 ([facility]) (test code = 752) RED CELL DISTRIBUTION WIDTH 15.0 % 11.6-14.4 H ([facility]) (test code = 412) PLATELET COUNT ([facility]) (test 208 K/CU MM 150-450 code = 756) MEAN PLATELET VOLUME ([facility]) 9.3 fL 9.4-12.4 L (test code = 754) NUCLEATED RED BLOOD CELLS 0 /100 WBC 0-0 ([facility]) (test code = 413) OXYGEN SATURATION, [id number] 04:08:00 Test Item Value Reference Range Interpretation Comments O2 SATURATION (MEASURED) ([facility]) 68.6 % (test code = 1455) Central linePOCT-GLUCOSE [id number] 22:05:00 Test Item Value Reference Range Interpretation Comments POC-GLUCOSE METER 301 mg/dL 70-110 H TESTED AT [place] [address] ([facility]) (test code = OBINNAADONAY [place] 1538) [address] [id number] 21:20:00 Test Item Value Reference Range Interpretation Comments P[facility]ASSIUM [facility] (test code = 4.3 meq/L 3.5-5.1 379) Check Serum Potassium level 2 hours after oral potassium replacement completed or 30 min after intravenous potassium replacement.POCT-GLUCOSE [id number] 18:09:00 Test Item Value Reference Range Interpretation Comments POC-GLUCOSE METER 238 mg/dL 70-110 H TESTED AT [place] [address] ([facility]) (test code = NERY [place] 1538) [address] HGB/HCT (H&H) - STAT [id number] 13:23:00 Test Item Value Reference Range Interpretation Comments HEMOGLOBIN ([facility]) (test code = 9.7 g/dL 13.0-16.8 L 410) HEMATOCRIT ([facility]) (test code = 29.0 % 40.0-50.0 L 411) POTASSIUM-STAT [id number] 13:21:00 Test Item Value Reference Range Interpretation Comments POTASSIUM (BEAKER) (test code = 4.2 meq/L 3.6-5.5 379) POCT-GLUCOSE [id number] 11:35:00 Test Item Value Reference Range Interpretation Comments POC-GLUCOSE METER 285 mg/dL 70-[address] [facility] 67[address] (BEAKER) (test code = NERY De Jesus [place] 1538) [address] POCT-GLUCOSE [id number] 07:53:00 Test Item Value Reference Range Interpretation Comments POC-GLUCOSE METER 145 mg/dL 70-[address] [facility] 67[address] (BEAKER) (test code = NERY De Jesus [place] 1538) [address] BASIC METABOLIC [id number] 04:24:00 Test Item Value Reference Range Interpretation [...] APPLICABLE FOR DIALYSIS PATIEN TS. Specimen slightly [id number] 04:20:00 Test Item Value Reference Range Interpretation Comments PHOSPHORUS (BEAKER) (test code = 2.9 mg/dL 2.3-4.7 604) [id number] 04:20:00 Test Item Value Reference Range Interpretation Comments MAGNESIUM (BEAKER) (test code = 1.7 mg/dL 1.6-2.6 627) IRON, [id number] 04:19:00 Test Item Value Reference Range Interpretation [...] 20-55 L (test code = 2590) CALCIUM, [id number] 04:07:00 Test Item Value Reference Range Interpretation Comments CALCIUM IONIZED (BEAKER) (test 1.11 mmol/L 1.12-1.27 L code = 698) PH, BLOOD (BEAKER) (test code = 7.40 1810) OXYGEN SATURATION, [id number] 04:02:00 Test Item Value Reference Range Interpretation [...] 0-0 (BEAKER) (test code = 413) POCT-GLUCOSE [id number] 00:24:00 Test Item Value Reference Range Interpretation Comments POC-GLUCOSE METER 164 mg/dL 70-[address] [facility] 67[address] (BEAKER) (test code = NERY De Jesus [place] 1538) [address] POCT-GLUCOSE [id number] 17:07:00 Test Item Value Reference Range Interpretation Comments POC-GLUCOSE METER 279 mg/dL 70-[address] [facility] 67[address] (BEAKER) (test code = NERY De Jesus [place] 1538) [address] OXYGEN SATURATION, [id number] 15:53:00 Test Item Value Reference Range Interpretation Comments O2 SATURATION (MEASURED) (BEAKER) 53.1 % (test code = 1455) Mixed venous.POCT-GLUCOSE [id number] 11:36:00 Test Item Value Reference Range Interpretation Comments POC-GLUCOSE METER 268 mg/dL 70-[address] [facility] [address] (BEAKER) (test code = NERY De Jesus [place] 1538) [address] PLATELET AGGREGATION: FUNCTION [id number] 09:16:00 Test Item Value Reference Range Interpretation Comments WEAK ADP 79 % 60-91 RESULT(BEAKER) (test code = 2135) PLATELET FUNCTION 60-100% indicates SCREEN INTERP (BEAKER) normal platelet (test code = 2173) function [id number] Qian Burns MD [facility] (test code = (electronic signature) 5563) PLATELET COUNT AGG 147 K/CU MM 150-450 L (BEAKER) (test code = 2656) [id number] 04:53:00 Test Item Value Reference Range Interpretation Comments MAGNESIUM (BEAKER) (test code = 1.8 mg/dL 1.6-2.6 627) BASIC METABOLIC [id number] 04:53:00 Test Item Value Reference Range Interpretation [...] TS. Specimen slightly ictericLACTIC ACID, ARTERIAL, WHOLE [id number] 04:43:00 Test Item Value Reference Range Interpretation [...] PERCENT (BEAKER) (test code = 2801) HEMOGLOBIN-STAT [id number] 00:13:00 Test Item Value Reference Range Interpretation Comments HEMOGLOBIN (BEAKER) (test code = 8.3 g/dL 13.0-16.8 L 410) HEMATOCRIT-STAT [id number] 00:13:00 Test Item Value Reference Range Interpretation Comments HEMATOCRIT (BEAKER) (test code = 411) 24.0 % 40.0-50.0 L OXYGEN SATURATION, [id number] 00:10:00 Test Item Value Reference Range Interpretation Comments O2 SATURATION (MEASURED) (BEAKER) 63.2 % (test code = 1455) POCT-GLUCOSE [id number] 23:19:00 Test Item Value Reference Range Interpretation Comments POC-GLUCOSE METER 200 mg/dL 70-[address] [facility] [address] (BEAKER) (test code = OBINNAADONAY [place] 1538) [address] LACTIC ACID, ARTERIAL, WHOLE [id number] 18:09:00 Test Item Value Reference Range Interpretation Comments LACTATE BLOOD ARTERIAL (2) 1.2 mmol/L 0.5-2.2 (BEAKER) (test code = 2874) Effective 07/25/2015: Units/Reference Range ChangeNew: 0.5-2.2 mmol/L Previous: 5- 20 mg/dLSpecimen slightly ictericOXYGEN SATURATION, [id number] 17:53:00 Test Item Value Reference Range Interpretation Comments O2 SATURATION (MEASURED) (BEAKER) 50.9 % (test code = 1455) POCT-GLUCOSE [id number] 17:48:00 Test Item Value Reference Range Interpretation Comments POC-GLUCOSE METER 149 mg/dL 70-[address] [facility] [address] (BEAKER) (test code = [place] 1538) [address] OXYGEN SATURATION, [id number] 14:36:00 Test Item Value Reference Range Interpretation Comments O2 SATURATION (MEASURED) (BEAKER) 39.0 % (test code = 1455) Please get from the central BASI METABOLIC [id number] 13:05:00 Test Item Value Reference Range Interpretation [...] DIALYSIS PATIEN TS. Specimen slightly ictericOXYGEN SATURATION, [id number] 12:39:00 Test Item Value Reference Range Interpretation Comments O2 SATURATION (MEASURED) (BEAKER) 95.3 % (test code = 1455) POCT-GLUCOSE [id number] 10:27:00 Test Item Value Reference Range Interpretation Comments POC-GLUCOSE METER 134 mg/dL 70-[address] [facility] [address] (BEAKER) (test code = [place] 1538) [address] POCT-GLUCOSE [id number] 10:27:00 Test Item Value Reference Range Interpretation Comments POC-GLUCOSE METER 180 mg/dL 70-[address] [facility] [address] (BEAKER) (test code = NERY De Jesus [place] 1538) [address] POCT-GLUCOSE [id number] 10:27:00 Test Item Value Reference Range Interpretation Comments POC-GLUCOSE METER 88 mg/dL 70-[address] [facility] [address] (BEAKER) (test code = NERY [place] [facility] [address] 1538) CBC W/PLT COUNT & AUTO [id number] 04:40:00 Test Item Value Reference Range Interpretation [...] 0-1 PERCENT (BEAKER) (test code = 2801) [id number] 04:26:00 Test Item Value Reference Range Interpretation Comments PHOSPHORUS (BEAKER) (test code = 4.5 mg/dL 2.3-4.7 604) [id number] 04:26:00 Test Item Value Reference Range Interpretation Comments MAGNESIUM (BEAKER) (test code = 2.2 mg/dL 1.6-2.6 627) BASIC METABOLIC [id number] 04:26:00 Test Item Value Reference Range Interpretation [...] TS. Specimen slightly ictericLACTIC ACID, ARTERIAL, WHOLE [id number] 04:18:00 Test Item Value Reference Range Interpretation Comments LACTATE BLOOD ARTERIAL (2) 0.6 mmol/L 0.5-2.2 (BEAKER) (test code = 2874) Effective 07/25/2015: Units/Reference Range ChangeNew: 0.5-2.2 mmol/L Previous: 5- 20 mg/dLSpecimen slightly ictericCALCIUM, [id number] 04:12:00 Test Item Value Reference Range Interpretation Comments CALCIUM IONIZED (BEAKER) (test 1.16 mmol/L 1.12-1.27 code = 698) PH, BLOOD (BEAKER) (test code = 7.44 1810) POTASSIUM-STAT [id number] 21:18:00 Test Item Value Reference Range Interpretation Comments POTASSIUM (BEAKER) (test code = 3.9 meq/L 3.6-5.5 379) CALCIUM, [id number] 21:18:00 Test Item Value Reference Range Interpretation Comments CALCIUM IONIZED (BEAKER) (test 1.21 mmol/L 1.12-1.27 code = 698) PH, BLOOD (BEAKER) (test code = 7.40 1810) SODIUM NA-STAT [id number] 21:18:00 Test Item Value Reference Range Interpretation Comments SODIUM (BEAKER) (test code = 381) 132 meq/L 135-148 L POCT-GLUCOSE [id number] 20:19:00 Test Item Value Reference Range Interpretation Comments POC-GLUCOSE METER 150 mg/dL 70-[address] [facility] [address] (BEAKER) (test code = [place] 1538) [address] POCT-GLUCOSE [id number] 20:19:00 Test Item Value Reference Range Interpretation Comments POC-GLUCOSE METER 182 mg/dL 70-[address] [facility] [address] (BEAKER) (test code = N[place] 1538) [address] POCT-GLUCOSE [id number] 16:29:00 Test Item Value Reference Range Interpretation Comments POC-GLUCOSE METER 97 mg/dL 70-[address] [facility] [address] (BEAKER) (test code = NERY [place] [id number] 9238) CBC W/PLT COUNT & AUTO [id number] 13:55:00 Test Item Value Reference Range Interpretation [...] (BEAKER) (test code Normal = 762) POCT-GLUCOSE [id number] 06:04:00 Test Item Value Reference Range Interpretation Comments POC-GLUCOSE METER 215 mg/dL 70-[address] [facility] [address] (BEAKER) (test code = N[place] 1538) [address] LACTIC ACID, ARTERIAL, WHOLE [id number] 04:42:00 Test Item Value Reference Range Interpretation Comments LACTATE BLOOD ARTERIAL (2) 1.0 mmol/L 0.5-2.2 (BEAKER) (test code = 2874) Effective 07/25/2015: Units/Reference Range ChangeNew: 0.5-2.2 mmol/L Previous: 5- 20 mg/dLSpecimen slightly [id number] 04:41:00 Test Item Value Reference Range Interpretation Comments PHOSPHORUS (BEAKER) (test code = 5.3 mg/dL 2.3-4.7 H 604) [id number] 04:41:00 Test Item Value Reference Range Interpretation Comments MAGNESIUM (BEAKER) (test code = 2.2 mg/dL 1.6-2.6 627) BASIC METABOLIC [id number] 04:41:00 Test Item Value Reference Range Interpretation [...] FOR DIALYSIS PATIEN TS. Specimen slightly ictericCALCIUM, [id number] 04:05:00 Test Item Value Reference Range Interpretation Comments CALCIUM IONIZED (BEAKER) (test 1.01 mmol/L 1.12-1.27 L code = 698) PH, BLOOD (BEAKER) (test code = 7.40 1810) OXYGEN SATURATION, [id number] 04:04:00 Test Item Value Reference Range Interpretation Comments O2 SATURATION (MEASURED) (AKER) 76.6 % (test code = 1455) POCT-GLUCOSE [id number] 22:05:00 Test Item Value Reference Range Interpretation Comments POC-GLUCOSE METER 149 mg/dL 70-[address] [facility] [facility] (test code = NERY De Jesus [place] 1538) [address] POCT-GLUCOSE [id number] 22:05:00 Test Item Value Reference Range Interpretation Comments POC-GLUCOSE METER 155 mg/dL 70-[address] [facility] [address] [facility] (test code = NERY De Jesus [place] 1538) [address] POCT-GLUCOSE [id number] 22:05:00 Test Item Value Reference Range Interpretation Comments POC-GLUCOSE METER 132 mg/dL 70-[address] [facility] [address] ([facility]) (test code = NERY De Jesus [place] 1538) [address] [id number] 21:34:00 Test Item Value Reference Range Interpretation Comments MAGNESIUM (BEAKER) (test code = 2.0 mg/dL 1.6-2.6 627) POTASSIUM-STAT [id number] 21:22:00 Test Item Value Reference Range Interpretation Comments POTASSIUM (BEAKER) (test code = 4.7 meq/L 3.6-5.5 379) HGB/HCT (H&H) - STAT [id number] 21:22:00 Test Item Value Reference Range Interpretation Comments HEMOGLOBIN (BEAKER) (test code = 9.0 g/dL 13.0-16.8 L 410) HEMATOCRIT (BEAKER) (test code = 26.0 % 40.0-50.0 L 411) CALCIUM, [id number] 21:21:00 Test Item Value Reference Range Interpretation Comments CALCIUM IONIZED (BEAKER) (test 1.25 mmol/L 1.12-1.27 code = 698) PH, BLOOD (BEAKER) (test code = 7.41 1810) GLUCOSE-STAT [id number] 17:45:00 Test Item Value Reference Range Interpretation Comments GLUCOSE RANDOM (BEAKER) (test code 109 mg/dL 70-110 = 652) BLOOD GAS, [id number] 17:45:00 Test Item Value Reference Range Interpretation [...] (BEAKER) (test code = 1819) 40.0 % [id number] 17:07:00 Test Item Value Reference Range Interpretation Comments POTASSIUM (BEAKER) (test code = 4.9 meq/L 3.5-5.1 379) [id number] 17:07:00 Test Item Value Reference Range Interpretation Comments MAGNESIUM (BEAKER) (test code = 1.8 mg/dL 1.6-2.6 627) [id number] 17:07:00 Test Item Value Reference Range Interpretation Comments GLUCOSE RANDOM (BEAKER) (test code 104 mg/dL 70-105 = 652) Effective 02/07/2014: Reference Range Change-Adult onlyNew: 70-105 Previous: 70-110CBC W/PLT COUNT & AUTO [id number] 17:00:00 Test Item Value Reference Range Interpretation [...] (BEAKER) (test code Normal = 762) POCT-GLUCOSE [id number] 16:29:00 Test Item Value Reference Range Interpretation Comments POC-GLUCOSE METER 85 mg/dL 70-110 TESTED AT [place] [address] ([facility]) (test code = [place] [address] 1538) POCT-GLUCOSE [id number] 16:29:00 Test Item Value Reference Range Interpretation Comments POC-GLUCOSE METER 82 mg/dL 70-110 TESTED AT [place] [address] ([facility]) (test code = NERY De Jesus [facility] [address] 1538) POCT-GLUCOSE [id number] 10:19:00 Test Item Value Reference Range Interpretation Comments POC-GLUCOSE METER 90 mg/dL 70-110 TESTED AT [place] [address] ([facility]) (test code = NERY De Jesus [facility] [address] 1538) POCT-GLUCOSE [id number] 09:16:00 Test Item Value Reference Range Interpretation Comments POC-GLUCOSE METER 128 mg/dL 70-110 H TESTED AT [place] [address] ([facility]) (test code = NERY De Jesus [facility] 1538) [address] CALCIUM, [id number] 06:15:00 Test Item Value Reference Range Interpretation Comments CALCIUM IONIZED ([facility]) (test 1.28 mmol/L 1.12-1.27 H code = 698) PH, BLOOD ([facility]) (test code = 7.38 1810) [id number] 05:48:00 Test Item Value Reference Range Interpretation Comments ACTIVATED CLOTTING TIME 131 sec TEST ED AT [place] [address] ([facility]) (test code = NERY De Jesus [facility] 441) [address] [id number] 05:48:00 Test Item Value Reference Range Interpretation Comments ACTIVATED CLOTTING TIME 505 sec TEST ED AT [place] [address] ([facility]) (test code = NERY De Jesus [place] 441) [address] [id number] 05:48:00 Test Item Value Reference Range Interpretation Comments ACTIVATED CLOTTING TIME 527 sec TEST ED AT [place] [address] ([facility]) (test code = NERY De Jesus [place] [address]) [address] [id number] 05:48:00 Test Item Value Reference Range Interpretation Comments ACTIVATED CLOTTING TIME 670 sec TEST ED AT [facility] 6720 (BEAKER) (test code = NERY De Jesus [place] 441) [address] [id number] 05:48:00 Test Item Value Reference Range Interpretation Comments ACTIVATED CLOTTING TIME > sec OUTS LAUREN MEASURING (BEAKER) (test code = CIARA JACKSONWalter AT [facility] 67[address] 441) [facility] [address] [id number] 05:40:00 Test Item Value Reference Range Interpretation Comments PHOSPHORUS (BEAKER) (test code = 4.0 mg/dL 2.3-4.7 604) [id number] 05:40:00 Test Item Value Reference Range Interpretation Comments MAGNESIUM (BEAKER) (test code = 1.9 mg/dL 1.6-2.6 627) BASIC METABOLIC [id number] 05:40:00 Test Item Value Reference Range Interpretation [...] DIALYSIS PATIEN TS. Specimen slightly ictericBLOOD GAS, [id number] 05:05:00 Test Item Value Reference Range Interpretation [...] 1819) 21.0 % LACTIC ACID, ARTERIAL, WHOLE [id number] 05:02:00 Test Item Value Reference Range Interpretation Comments LACTATE BLOOD ARTERIAL (2) 2.6 mmol/L 0.5-2.2 H (BEAKER) (test code = 2874) Effective 07/25/2015: Units/Reference Range ChangeNew: 0.5-2.2 mmol/L Previous: 5- 20 mg/dLSpecimen slightly ictericOXYGEN SATURATION, [id number] 05:01:00 Test Item Value Reference Range Interpretation Comments O2 SATURATION (MEASURED) (BEAKER) 71.2 % (test code = 1455) POCT-GLUCOSE [id number] 22:16:00 Test Item Value Reference Range Interpretation Comments POC-GLUCOSE METER 136 mg/dL 70-[address] [facility] [address] (BEAKER) (test code = OBINNAADONAY [place] 1530) [address] CBC W/PLT COUNT & AUTO [id number] 20:16:00 Test Item Value Reference Range Interpretation [...] (BEAKER) (test code = 1+ few 962) [id number] 19:13:00 Test Item Value Reference Range Interpretation Comments PHOSPHORUS (BEAKER) (test code = 2.8 mg/dL 2.3-4.7 604) [id number] 19:13:00 Test Item Value Reference Range Interpretation Comments MAGNESIUM (BEAKER) (test code = 1.7 mg/dL 1.6-2.6 627) BASIC METABOLIC [id number] 19:13:00 Test Item Value Reference Range Interpretation [...] TS. Specimen slightly ictericLACTIC ACID, ARTERIAL, WHOLE [id number] 19:09:00 Test Item Value Reference Range Interpretation Comments LACTATE BLOOD ARTERIAL (2) 2.6 mmol/L 0.5-2.2 H (BEAKER) (test code = 2874) Effective 07/25/2015: Units/Reference Range ChangeNew: 0.5-2.2 mmol/L Previous: 5- 20 mg/dLSpecimen slightly [id number] 19:04:00 Test Item Value Reference Range Interpretation Comments FIBRINOGEN LEVEL (BEAKER) (test 274 mg/dl 225-434 code = 658) [id number] 19:04:00 Test Item Value Reference Range Interpretation Comments PARTIAL THROMBOPLASTIN TIME 40.5 seconds 22.5-36.0 H (BEAKER) (test code = 760) PROTHROMBIN [id number] 19:03:00 Test Item Value Reference Range Interpretation Comments PROTIME (BEAKER) (test code = 19.0 seconds 11.7-14.7 H 759) INR (BEAKER) (test code = 370) 1.6 <=5.9 RECOMMENDED COUMADIN/WARFARIN INR THERAPY RANGESSTANDARD DOSE: 2.0 - 3.0 Includes: PROPHYLAXIS for venous thrombosis, systemic embolization; TREATMENT for venous thrombosis and/or pulmonary embolus.HIGH RISK: Target INR is 2.5-3.5 for patients with mechanical heart valves.BLOOD GAS, [id number] 19:00:00 Test Item Value Reference Range Interpretation [...] (test code = 1819) 60.0 % GLUCOSE-STAT [id number] 19:00:00 Test Item Value Reference Range Interpretation Comments GLUCOSE RANDOM (BEAKER) (test code 137 mg/dL 70-110 H = 652) HGB/HCT (H&H) - STAT [id number] 19:00:00 Test Item Value Reference Range Interpretation Comments HEMOGLOBIN (BEAKER) (test code = 10.0 g/dL 13.0-16.8 L 410) HEMATOCRIT (BEAKER) (test code = 29.0 % 40.0-50.0 L 411) CALCIUM, [id number] 19:00:00 Test Item Value Reference Range Interpretation Comments CALCIUM IONIZED (BEAKER) (test 1.33 mmol/L 1.12-1.27 H code = 698) PH, BLOOD (BEAKER) (test code = 7.38 1810) OXYGEN SATURATION, [id number] 18:59:00 Test Item Value Reference Range Interpretation Comments O2 SATURATION (MEASURED) (BEAKER) 83.4 % (test code = 1455) SODIUM NA-STAT [id number] 18:59:00 Test Item Value Reference Range Interpretation Comments SODIUM (BEAKER) (test code = 381) 137 meq/L 135-148 POTASSIUM-STAT [id number] 18:59:00 Test Item Value Reference Range Interpretation Comments POTASSIUM (BEAKER) (test code = 4.0 meq/L 3.6-5.5 379) [id number] 18:02:00 Test Item Value Reference Range Interpretation Comments FIBRINOGEN LEVEL (BEAKER) (test 247 mg/dl 225-434 code = 658) [id number] 18:02:00 Test Item Value Reference Range Interpretation Comments PARTIAL THROMBOPLASTIN TIME 37.7 seconds 22.5-36.0 H (BEAKER) (test code = 760) PROTHROMBIN [id number] 18:01:00 Test Item Value Reference Range Interpretation Comments PROTIME (BEAKER) (test code = 19.4 seconds 11.7-14.7 H 759) INR (BEAKER) (test code = 370) 1.6 <=5.9 RECOMMENDED COUMADIN/WARFARIN INR THERAPY RANGESSTANDARD DOSE: 2.0 - 3.0 Includes: PROPHYLAXIS for venous thrombosis, systemic embolization; TREATMENT for venous thrombosis and/or pulmonary embolus.HIGH RISK: Target INR is 2.5-3.5 for patients with mechanical heart valves.CALCIUM, [id number] 17:06:00 Test Item Value Reference Range Interpretation Comments CALCIUM IONIZED (BEAKER) (test 1.11 mmol/L 1.12-1.27 L code = 698) PH, BLOOD (BEAKER) (test code = 7.33 1810) BLOOD GAS, [id number] 17:05:00 Test Item Value Reference Range Interpretation [...] (test code = 1819) 100.0 % GLUCOSE-STAT [id number] 17:05:00 Test Item Value Reference Range Interpretation Comments GLUCOSE RANDOM (BEAKER) (test code 153 mg/dL 70-110 H = 652) HGB/HCT (H&H) - STAT [id number] 17:05:00 Test Item Value Reference Range Interpretation Comments HEMOGLOBIN (BEAKER) (test code = 7.4 g/dL 13.0-16.8 L 410) HEMATOCRIT (BEAKER) (test code = 22.0 % 40.0-50.0 L 411) SODIUM NA-STAT [id number] 17:02:00 Test Item Value Reference Range Interpretation Comments SODIUM (BEAKER) (test code = 381) 135 meq/L 135-148 POTASSIUM-STAT [id number] 17:02:00 Test Item Value Reference Range Interpretation Comments POTASSIUM (BEAKER) (test code = 4.1 meq/L 3.6-5.5 379) PLATELET [id number] 16:15:00 Test Item Value Reference Range Interpretation [...] 55.0-65.0 (test code = 1413) BLOOD GAS, [id number] 16:01:00 Test Item Value Reference Range Interpretation [...] (test code = 1819) 100.0 % GLUCOSE-STAT [id number] 16:01:00 Test Item Value Reference Range Interpretation Comments GLUCOSE RANDOM (BEAKER) (test code 171 mg/dL 70-110 H = 652) HGB/HCT (H&H) - STAT [id number] 16:01:00 Test Item Value Reference Range Interpretation Comments HEMOGLOBIN (BEAKER) (test code = 8.6 g/dL 13.0-16.8 L 410) HEMATOCRIT (BEAKER) (test code = 25.0 % 40.0-50.0 L 411) SODIUM NA-STAT [id number] 16:00:00 Test Item Value Reference Range Interpretation Comments SODIUM (BEAKER) (test code = 381) 137 meq/L 135-148 POTASSIUM-STAT [id number] 16:00:00 Test Item Value Reference Range Interpretation Comments POTASSIUM (BEAKER) (test code = 4.2 meq/L 3.6-5.5 379) CALCIUM, [id number] 16:00:00 Test Item Value Reference Range Interpretation Comments CALCIUM IONIZED (BEAKER) (test 1.17 mmol/L 1.12-1.27 code = 698) PH, BLOOD (BEAKER) (test code = 7.34 1810) [id number] 15:45:00 Test Item Value Reference Range Interpretation Comments FIBRINOGEN LEVEL (BEAKER) (test 177 mg/dl 225-434 L code = 658) [id number] 15:45:00 Test Item Value Reference Range Interpretation Comments PARTIAL THROMBOPLASTIN TIME 39.6 seconds 22.5-36.0 H (BEAKER) (test code = 760) PROTHROMBIN [id number] 15:44:00 Test Item Value Reference Range Interpretation Comments PROTIME (BEAKER) (test code = 20.3 seconds 11.7-14.7 H 759) INR (BEAKER) (test code = 370) 1.7 <=5.9 RECOMMENDED COUMADIN/WARFARIN INR THERAPY RANGESSTANDARD DOSE: 2.0 - 3.0 Includes: PROPHYLAXIS for venous thrombosis, systemic embolization; TREATMENT for venous thrombosis and/or pulmonary embolus.HIGH RISK: Target INR is 2.5-3.5 for patients with mechanical heart valves.SODIUM NA-STAT [id number] 15:06:00 Test Item Value Reference Range Interpretation Comments SODIUM (BEAKER) (test code = 381) 136 meq/L 135-148 POTASSIUM-STAT [id number] 15:06:00 Test Item Value Reference Range Interpretation Comments POTASSIUM (BEAKER) (test code = 4.2 meq/L 3.6-5.5 379) BLOOD GAS, [id number] 15:06:00 Test Item Value Reference Range Interpretation [...] (test code = 1819) 96.0 % GLUCOSE-STAT [id number] 15:06:00 Test Item Value Reference Range Interpretation Comments GLUCOSE RANDOM (BEAKER) (test code 169 mg/dL 70-110 H = 652) HGB/HCT (H&H) - STAT [id number] 15:06:00 Test Item Value Reference Range Interpretation Comments HEMOGLOBIN (BEAKER) (test code = 7.9 g/dL 13.0-16.8 L 410) HEMATOCRIT (BEAKER) (test code = 23.0 % 40.0-50.0 L 411) CALCIUM, [id number] 15:06:00 Test Item Value Reference Range Interpretation [...] MM 55.0-65.0 (test code = 1413) PLATELET [id number] 14:42:00 Test Item Value Reference Range Interpretation Comments PLATELET COUNT (BEAKER) (test 161 K/CU MM 150-450 code = 756) [id number] 14:32:00 Test Item Value Reference Range Interpretation Comments FIBRINOGEN LEVEL (BEAKER) (test 199 mg/dl 225-434 L code = 658) [id number] 14:32:00 Test Item Value Reference Range Interpretation Comments PARTIAL THROMBOPLASTIN TIME 44.5 seconds 22.5-36.0 H (BEAKER) (test code = 760) PROTHROMBIN [id number] 14:31:00 Test Item Value Reference Range Interpretation Comments PROTIME (BEAKER) (test code = 20.4 seconds 11.7-14.7 H 759) INR (BEAKER) (test code = 370) 1.8 <=5.9 RECOMMENDED COUMADIN/WARFARIN INR THERAPY RANGESSTANDARD DOSE: 2.0 - 3.0 Includes: PROPHYLAXIS for venous thrombosis, systemic embolization; TREATMENT for venous thrombosis and/or pulmonary embolus.HIGH RISK: Target INR is 2.5-3.5 for patients with mechanical heart valves.PLATELET [id number] 14:28:00 Test Item Value Reference Range Interpretation [...] 55.0-65.0 L (test code = 1413) CALCIUM, [id number] 14:11:00 Test Item Value Reference Range Interpretation Comments CALCIUM IONIZED (BEAKER) (test 1.04 mmol/L 1.12-1.27 L code = 698) PH, BLOOD (BEAKER) (test code = 7.40 1810) SODIUM NA-STAT [id number] 14:09:00 Test Item Value Reference Range Interpretation Comments SODIUM (BEAKER) (test code = 381) 136 meq/L 135-148 POTASSIUM-STAT [id number] 14:09:00 Test Item Value Reference Range Interpretation Comments POTASSIUM (BEAKER) (test code = 4.3 meq/L 3.6-5.5 379) BLOOD GAS, [id number] 14:09:00 Test Item Value Reference Range Interpretation [...] (test code = 1819) 100.0 % GLUCOSE-STAT [id number] 14:09:00 Test Item Value Reference Range Interpretation Comments GLUCOSE RANDOM (BEAKER) (test code 178 mg/dL 70-110 H = 652) HGB/HCT (H&H) - STAT [id number] 14:09:00 Test Item Value Reference Range Interpretation Comments HEMOGLOBIN (BEAKER) (test code = 8.4 g/dL 13.0-16.8 L 410) HEMATOCRIT (BEAKER) (test code = 25.0 % 40.0-50.0 L 411) HEMOGLOBIN-STAT [id number] 13:41:00 Test Item Value Reference Range Interpretation Comments HEMOGLOBIN (BEAKER) (test code = 8.4 GM/DL 13.7-17.5 L 410) [id number] 13:36:00 Test Item Value Reference Range Interpretation Comments FIBRINOGEN LEVEL (BEAKER) (test 157 mg/dl 225-434 L code = 658) [id number] 13:36:00 Test Item Value Reference Range Interpretation Comments PARTIAL THROMBOPLASTIN TIME 49.2 seconds 22.5-36.0 H (BEAKER) (test code = 760) PROTHROMBIN [id number] 13:35:00 Test Item Value Reference Range Interpretation Comments PROTIME (BEAKER) (test code = 25.5 seconds 11.7-14.7 H 759) INR (BEAKER) (test code = 370) 2.3 <=5.9 RECOMMENDED COUMADIN/WARFARIN INR THERAPY RANGESSTANDARD DOSE: 2.0 - 3.0 Includes: PROPHYLAXIS for venous thrombosis, systemic embolization; TREATMENT for venous thrombosis and/or pulmonary embolus.HIGH RISK: Target INR is 2.5-3.5 for patients with mechanical heart valves.CALCIUM, [id number] 13:08:00 Test Item Value Reference Range Interpretation Comments CALCIUM IONIZED (BEAKER) (test 1.40 mmol/L 1.12-1.27 H code = 698) PH, BLOOD (BEAKER) (test code = 7.35 1810) BLOOD GAS, [id number] 13:08:00 Test Item Value Reference Range Interpretation [...] (test code = 1819) 100.0 % GLUCOSE-STAT [id number] 13:08:00 Test Item Value Reference Range Interpretation Comments GLUCOSE RANDOM (BEAKER) (test code 170 mg/dL 70-110 H = 652) SODIUM NA-STAT [id number] 13:08:00 Test Item Value Reference Range Interpretation Comments SODIUM (BEAKER) (test code = 381) 132 meq/L 135-148 L HGB/HCT (H&H) - STAT [id number] 13:08:00 Test Item Value Reference Range Interpretation Comments HEMOGLOBIN (BEAKER) (test code = 9.0 g/dL 13.0-16.8 L 410) HEMATOCRIT (BEAKER) (test code = 26.0 % 40.0-50.0 L 411) POTASSIUM-STAT [id number] 13:07:00 Test Item Value Reference Range Interpretation Comments POTASSIUM (BEAKER) (test code = 4.7 meq/L 3.6-5.5 379) POTASSIUM-STAT [id number] 12:42:00 Test Item Value Reference Range Interpretation Comments POTASSIUM (BEAKER) (test code = 5.2 meq/L 3.6-5.5 379) BLOOD GAS, [id number] 12:42:00 Test Item Value Reference Range Interpretation [...] code = 1819) 70.0 % SODIUM NA-STAT [id number] 12:42:00 Test Item Value Reference Range Interpretation Comments SODIUM (BEAKER) (test code = 381) 133 meq/L 135-148 L GLUCOSE-STAT [id number] 12:42:00 Test Item Value Reference Range Interpretation Comments GLUCOSE RANDOM (BEAKER) (test code 159 mg/dL 70-110 H = 652) HGB/HCT (H&H) - STAT [id number] 12:42:00 Test Item Value Reference Range Interpretation Comments HEMOGLOBIN (BEAKER) (test code = 8.4 g/dL 13.0-16.8 L 410) HEMATOCRIT (BEAKER) (test code = 25.0 % 40.0-50.0 L 411) SODIUM NA-STAT [id number] 12:26:00 Test Item Value Reference Range Interpretation Comments SODIUM (BEAKER) (test code = 381) 136 meq/L 135-148 POTASSIUM-STAT [id number] 12:26:00 Test Item Value Reference Range Interpretation Comments POTASSIUM (BEAKER) (test code = 5.5 meq/L 3.6-5.5 379) BLOOD GAS, [id number] 12:26:00 Test Item Value Reference Range Interpretation [...] (test code = 1819) 75.0 % GLUCOSE-STAT [id number] 12:26:00 Test Item Value Reference Range Interpretation Comments GLUCOSE RANDOM (BEAKER) (test code 162 mg/dL 70-110 H = 652) HGB/HCT (H&H) - STAT [id number] 12:26:00 Test Item Value Reference Range Interpretation Comments HEMOGLOBIN (BEAKER) (test code = 9.3 g/dL 13.0-16.8 L 410) HEMATOCRIT (BEAKER) (test code = 27.0 % 40.0-50.0 L 411) BLOOD GAS, [id number] 12:04:00 Test Item Value Reference Range Interpretation [...] (test code = 1819) 50.0 % GLUCOSE-STAT [id number] 12:04:00 Test Item Value Reference Range Interpretation Comments GLUCOSE RANDOM (BEAKER) (test code 158 mg/dL 70-110 H = 652) HGB/HCT (H&H) - STAT [id number] 12:04:00 Test Item Value Reference Range Interpretation Comments HEMOGLOBIN (BEAKER) (test code = 8.9 g/dL 13.0-16.8 L 410) HEMATOCRIT (BEAKER) (test code = 26.0 % 40.0-50.0 L 411) SODIUM NA-STAT [id number] 12:02:00 Test Item Value Reference Range Interpretation Comments SODIUM (BEAKER) (test code = 381) 135 meq/L 135-148 POTASSIUM-STAT [id number] 12:02:00 Test Item Value Reference Range Interpretation Comments POTASSIUM (BEAKER) (test code = 4.8 meq/L 3.6-5.5 379) BLOOD GAS, [id number] 10:09:00 Test Item Value Reference Range Interpretation [...] code = 1819) 36.0 % SODIUM NA-STAT [id number] 10:09:00 Test Item Value Reference Range Interpretation Comments SODIUM (BEAKER) (test code = 381) 133 meq/L 135-148 L GLUCOSE-STAT [id number] 10:09:00 Test Item Value Reference Range Interpretation Comments GLUCOSE RANDOM (BEAKER) (test code 191 mg/dL 70-110 H = 652) HGB/HCT (H&H) - STAT [id number] 10:09:00 Test Item Value Reference Range Interpretation Comments HEMOGLOBIN (BEAKER) (test code = 13.2 g/dL 13.0-16.8 410) HEMATOCRIT (BEAKER) (test code = 39.0 % 40.0-50.0 L 411) POTASSIUM-STAT [id number] 10:08:00 Test Item Value Reference Range Interpretation Comments POTASSIUM (BEAKER) (test code = 4.7 meq/L 3.6-5.5 379) CALCIUM, [id number] 10:07:00 Test Item Value Reference Range Interpretation Comments CALCIUM IONIZED (BEAKER) (test 1.17 mmol/L 1.12-1.27 code = 698) PH, BLOOD (BEAKER) (test code = 7.41 1810) POCT-GLUCOSE [id number] 06:19:00 Test Item Value Reference Range Interpretation Comments POC-GLUCOSE METER 230 mg/dL 70-[address] [facility] [address] (BEAKER) (test code = OBINNAADONAY MOREAU 1538) [address] COMPREHENSIVE METABOLIC [id number] 20:05:00 Test Item Value Reference Range Interpretation [...] I S NOT APPLICABLE FOR DIALYSIS PATIEN [id number] 19:25:00 Test Item Value Reference Range Interpretation Comments PARTIAL THROMBOPLASTIN TIME 34.3 seconds 22.5-36.0 (BEAKER) (test code = 760) PROTHROMBIN [id number] 19:24:00 Test Item Value Reference Range Interpretation [...] mechanical heart valves.CBC W/PLT COUNT & AUTO [id number] 19:16:00 Test Item Value Reference Range Interpretation [...] % 0-1 PERCENT (BEAKER) (test code = 1325)
--- NOTE | 2023-01-28 10:21 | RAD REPORT ---
EXAM DESCRIPTION: RADChest Single View01/28/2023 9:55 am CLINICAL HISTORY: Congestion;Cough COMPARISON: Chest Single View dated 01/22/2023; Chest Pa And Lat (2 Views) dated 10/10/2021; Chest Sin gle View dated 04/23/2020; Chest Single View dated 04/22/2020 TECHNIQUE: Portable AP view of the chest. FINDINGS: Central interstitial prominence and scattered mild patchy airspace opacities. No pneumoth orax or effusion. Stable cardiomegaly. Sequelae of prior CABG. Mediastinal contours are unchanged. IMPRESSION: Central interstitial prominence and scattered patchy airspace opacities, suggestive of c ongestive heart failure or pulmonary edema.
[2023-01-28 10:37] LABS: Absolute Lymphocytes (CBC) 1.1 K/uL (0.7-4.9); Hematocrit 31.5 % (39.6-49.0); Lymphocytes % 12.5 % (15.3-44.8); MCV 89.9 fL (80-100); MPV 6.6 fL (7.6-11.3); Platelets 391 thou/uL (152-406); RBC Red Blood Cell Count 3.51 M/uL (4.33-5.43)
[2023-01-28 10:41] LABS: Protime INR 2.35
--- NOTE | 2023-01-28 10:50 | EDPHYS ---
Physician Documentation [facility] Name: Navjot Collins Age: 77 yrs Sex: Male : 1945 Arrival Date: 01/28/2023 Time: 09:20 Bed 15 Private MD: ED Physician Diogo Jacobo HPI: 01/28 09:45 This 77 yrs old Male presents to ER via EMS with complaints of Nausea, General Weakness.snw 09:45 This 77 yrs old Male presents to ER via EMS with complaints of Nausea, General Weakness.snw 09:45 The patient presents to the emergency department with nausea, that is moderate, with snw "dry heaves". Onset: The symptoms/episode began/occurred s/p cough, pt just recovering from influenza. Possible causes: recent illness. Associated signs and symptoms: Pertinent positives: generalized weakness. Severity of symptoms: At their worst the symptoms were moderate severe in the emergency department the symptoms are unchanged. It is unknown whether or not the patient has had similar symptoms in the past. dx with influenza just post taking Keflex x 10 days for skin wound to right lower leg. Historical: - Allergies: 09:32 Codeine; eh3 09:32 Demerol; eh3 09:32 fedrazil; eh3 09:32 Vicodin; eh3 - PMHx: 09:32 Atrial Fib; CAD; CHF; Diabetes - IDDM; HTN; PROSTATE CA; eh3 - PSHx: 09:32 Coronary artery bypass graft; Amputated below knee; Stented artery; eh3 - Immunization history:: Adult Immunizations up to date. - Social history:: Smoking status: unknown. ROS: 09:47 Constitutional: Negative for fever, chills, and weight loss, + weakness, malaise, snw pallor Eyes: Negative for injury, pain, redness, and discharge, ENT: Negative for injury, pain, and discharge, conjunctiva pale bilaterally Neck: Negative for injury, pain, and swelling, Cardiovascular: Negative for chest pain, palpitations, and edema, Respiratory: Negative for shortness of breath, cough, wheezing, and pleuritic chest pain, Abdomen/GI: Negative for abdominal pain, nausea, vomiting, diarrhea, and constipation, Back: Negative for injury and pain, : Negative for injury, bleeding, discharge, and swelling, MS/Extremity: Negative for injury and deformity, Neuro: Negative for headache, numbness, tingling, and seizure, + weakness, + malaise, gait not tested 09:47 Skin: Positive for pallor, Exam: 09:49 Head/Face: Normocephalic, atraumatic. Eyes: Pupils equal round and reactive to light, snw extra-ocular motions intact. Lids and lashes normal. Conjunctiva and sclera are non-icteric and not injected. Cornea within normal limits. Periorbital areas with no swelling, redness, or edema. ENT: Nares patent. No nasal discharge, no septal abnormalities noted. Tympanic membranes are normal and external auditory canals are clear. Oropharynx with no redness, swelling, or masses, exudates, or evidence of obstruction, uvula midline. Mucous membranes moist. Neck: Trachea midline, no thyromegaly or masses palpated, and no cervical lymphadenopathy. Supple, full range of motion without nuchal rigidity, or vertebral point tenderness. No Meningismus. Chest/axilla: Normal chest wall appearance and motion. Nontender with no deformity. No lesions are appreciated. Cardiovascular: Regular rate and rhythm with a normal S1 and S2. No gallops, murmurs, or rubs. Normal PMI, no JVD. No pulse deficits. Respiratory: Lungs have equal breath sounds bilaterally, clear to auscultation and percussion. No rales, rhonchi or wheezes noted. No increased work of breathing, no retractions or nasal flaring. Abdomen/GI: Soft, non-tender, with normal bowel sounds. No distension or tympany. No guarding or rebound. No evidence of tenderness throughout. Back: No spinal tenderness. No costovertebral tenderness. Full range of motion. 09:49 Psych: Awake, alert, with orientation to person, place and time. Behavior, mood, and affect are within normal limits. 09:49 Constitutional: The patient appears alert, awake, frail, pale, 09:49 Skin: Appearance: Color: pale, Temperature: normal temperature, lesion(s), abrasion to right lower leg and lateral ankle, mild surrounding erythema to lower leg wound, Left BKA, 09:49 Neuro: Orientation: is normal, Mentation: is normal, Gait: not tested. seizure activity, is not displayed by the patient, dupuytren's contractures to bilateral hands, left BKA, Vital Signs: 09:25 BP 134 / 68; Pulse 57; Resp 18; Temp 98.3(O); Pulse Ox 96% on R/A; Weight 87 kg; Height eh3 6 ft. 1 in. ; 10:30 BP 127 / 64; Pulse 53; Resp 17; Pulse Ox 96% on R/A; eh3 11:30 BP 119 / 60; Pulse 55; Resp 18; Pulse Ox 95% on R/A; eh3 12:30 BP 118 / 64; Pulse 68; Resp 18; Pulse Ox 98% on R/A; eh3 13:30 BP 117 / 63; Pulse 54; Resp 20; Pulse Ox 95% on R/A; eh3 09:25 Body Mass Index 25.30 (87.00 kg, 185.42 cm) eh3 MDM: 09:27 Patient medically screened. snw 09:52 Differential diagnosis: Nonspecific abd pain, viral gastroenteritis, gib, post viral snw malaise, sepsis. Data reviewed: vital signs, nurses notes, EMS record. Historians other than the Patient: EMS: EMS. 10:56 Management of patient was discussed with the following: Hospitalist: will admit to obs snw to Dr. Edmond. 01/28 09:26 Order name: Blood Culture Adult (2) snw 01/28 09:26 Order name: CBC with Diff; Complete Time: 10:41 snw 01/28 09:26 Order name: CMP; Complete Time: 11:04 snw 01/28 09:26 Order name: Lactate w/ 2H reflex if indic.; Complete Time: 10:57 snw 01/28 09:26 Order name: Protime (+inr); Complete Time: 10:41 snw 01/28 09:26 Order name: Ptt, Activated; Complete Time: 10:41 snw 01/28 09:26 Order name: Urinalysis w/ reflexes; Complete Time: 13:42 snw 01/28 09:26 Order name: Troponin HS; Complete Time: 11:04 snw 01/28 09:26 Order name: TS; Complete Time: 11:11 snw 01/28 09:26 Order name: TSH; Complete Time: 11:04 snw 01/28 10:37 Order name: SARS RAPID; Complete Time: 11:41 eh3 01/28 12:46 Order name: Glucose, Ancillary Testing; Complete Time: 12:55 EDMS 01/28 13:30 Order name: NT PRO-BNP; Complete Time: 13:42 EDMS 01/28 18:16 Order name: Glucose, Ancillary Testing; Complete Time: 18:17 EDMS 01/28 09:26 Order name: Chest Single View XRAY; Complete Time: 10:27 snw 01/28 09:26 Order name: EKG; Complete Time: 09:27 snw 01/28 09:26 Order name: Accucheck; Complete Time: 10:11 snw 01/28 09:26 Order name: Cardiac monitoring; Complete Time: 09:38 snw 01/28 09:26 Order name: EKG - Nurse/Tech; Complete Time: 10:37 snw 01/28 09:26 Order name: IV Saline Lock - Large Bore; Complete Time: 10:28 snw 01/28 09:26 Order name: Labs collected and sent; Complete Time: 10:28 snw 01/28 09:26 Order name: O2 Per Protocol; Complete Time: 09:38 snw 01/28 09:26 Order name: O2 Sat Monitoring; Complete Time: 09:38 snw 01/28 09:26 Order name: Vital Signs; Complete Time: 09:38 snw EC:55 Rate is 55 beats/min. Rhythm is irregular. T waves are Flattened. Clinical impression: snw Sinus bradycardia and prolonged QT, generalized flattened ST segments. Administered Medications: 11:18 Drug: Furosemide IVP 20 mg IVP once; give over 2 minutes Route: IVP; Site: right 3 forearm; 12:00 Follow up: Response: No adverse reaction [facility] Disposition: 09:55 I was immediately available on-site in the Emergency Department for consultation in the id3 care of the patient. Disposition Summary: 01/28/23 10:49 Hospitalization Ordered Notes: Hospitalization Status: Observation snw Provider: Mykel Edmond snw Condition: Fair snw Problem: an acute exacerbation snw Symptoms: have improved snw Bed/Room Type: Standard snw Location: Telemetry/MedSurg (observation)(01/28/23 17:28) bd Room Assignment: 229(01/28/23 17:28) bd Diagnosis - Unspecified systolic (congestive) heart failure snw - Diabetes mellitus due to underlying condition without complications snw - Postviral fatigue syndrome snw - Anemia, unspecified snw Forms: - Medication Reconciliation Form snw - SBAR form snw - Leadership Thank You Letter snw Signatures: Dispatcher [employer] EDAriadna Knutson Shelly, STACKER-C STACKER-Csnw Tanmay Cho RN RN jl7 Diogo Jacobo, DO ms3 Vero Blackman RN RN eh3 Corrections: (The following items were deleted from the chart) 15:10 10:49 Telemetry/MedSurg (observation) snw jl7 15:10 10:49 snw jl7 17:28 15:10 [facility] ER HOLD jl7 bd 17:28 15:10 ERHOLD- jl7 bd
--- NOTE | 2023-01-28 10:50 | ER ---
Nurse's Notes [facility] Name: Navjot Collins Age: 77 yrs Sex: Male : 1945 Arrival Date: 01/28/2023 Time: 09:20 Bed 15 Private MD: Diagnosis: Unspecified systolic (congestive) heart failure;Diabetes mellitus due to underlying condition without complications;Postviral fatigue syndrome;Anemia, unspecified Presentation: 01/28 09:25 Method Of Arrival: EMS: [place] 09:25 Chief complaint: EMS states: toned out to home for weakness and dry heaving. Pt seen 3 here last for N/V/abd pain. Was not able to start prescribed medication until Thursday, has 2 more days of medication left. Coronavirus screen: Vaccine status: Patient reports receiving the 2nd dose of the covid vaccine. Ebola Screen: No symptoms or risks identified at this time. Initial Sepsis Screen: Does the patient meet any 2 criteria? No. Patient's initial sepsis screen is negative. Does the patient have a suspected source of infection? Yes: Skin breakdown/wound. Risk Assessment: Do you want to hurt yourself or someone else? Patient reports no desire to harm self or others. Onset of symptoms was January 28, 2023. 09:25 Acuity: ZENAIDA 3 [facility] 09:25 Care prior to arrival: Glucose check: 211. 3 Triage Assessment: 09:25 General: Appears in no apparent distress. uncomfortable, Behavior is calm, cooperative, eh3 appropriate for age. Pain: Complains of pain in abdomen. Neuro: Level of Consciousness is awake, alert, obeys commands, Oriented to person, place, time, situation. Cardiovascular: Capillary refill < 3 seconds Patient's skin is warm and dry. Cardiovascular: Edema is 3+ to right midcalf and right ankle skin is reddened, 2 cm wound on right anterior lower leg. Respiratory: Airway is patent Respiratory effort is even, unlabored, Respiratory pattern is regular, symmetrical. GI: Abdomen is round non-distended, Reports lower abdominal pain, upper abdominal pain, nausea. Derm: Skin is dry, Skin is pale, Skin temperature is warm. Musculoskeletal: Amputation of left leg. Circulation, motion, and sensation intact. Reports weakness in generalized. Historical: - Allergies: 09:32 Codeine; eh3 09:32 Demerol; eh3 09:32 fedrazil; eh3 09:32 Vicodin; eh3 - PMHx: 09:32 Atrial Fib; CAD; CHF; Diabetes - IDDM; HTN; PROSTATE CA; eh3 - PSHx: 09:32 Coronary artery bypass graft; Amputated below knee; Stented artery; eh3 - Immunization history:: Adult Immunizations up to date. - Social history:: Smoking status: unknown. Screenin:30 [facility] ED Fall Risk Assessment (Adult) Score/Fall Risk Level 0 - 2 = Low Risk. Abuse eh3 screen: Denies threats or abuse. Denies injuries from another. Nutritional screening: No deficits noted. Tuberculosis screening: No symptoms or risk factors identified. Assessment: 09:30 Reassessment: No changes from previously documented assessment. See triage assessment. eh3 GI: Abdomen is round non-distended, Bowel sounds present X 4 quads. Abd is soft X 4 quads Abdomen is tender to palpation in right lower quadrant and left lower quadrant Reports lower abdominal pain, upper abdominal pain, nausea. 10:30 Reassessment: Patient appears in no apparent distress at this time. Patient and/or eh3 family updated on plan of care and expected duration. Pain level reassessed. Patient is alert, oriented x 3, equal unlabored respirations, skin warm/dry/pink. 11:30 Reassessment: Patient appears in no apparent distress at this time. Patient and/or eh3 family updated on plan of care and expected duration. Pain level reassessed. Patient is alert, oriented x 3, equal unlabored respirations, skin warm/dry/pink. 12:30 Reassessment: Patient appears in no apparent distress at this time. Patient and/or eh3 family updated on plan of care and expected duration. Pain level reassessed. Patient is alert, oriented x 3, equal unlabored respirations, skin warm/dry/pink. 13:30 Reassessment: Patient appears in no apparent distress at this time. Patient and/or eh3 family updated on plan of care and expected duration. Pain level reassessed. Patient is alert, oriented x 3, equal unlabored respirations, skin warm/dry/pink. Vital Signs: 09:25 BP 134 / 68; Pulse 57; Resp 18; Temp 98.3(O); Pulse Ox 96% on R/A; Weight 87 kg; Height eh3 6 ft. 1 in. ; 10:30 BP 127 / 64; Pulse 53; Resp 17; Pulse Ox 96% on R/A; eh3 11:30 BP 119 / 60; Pulse 55; Resp 18; Pulse Ox 95% on R/A; eh3 12:30 BP 118 / 64; Pulse 68; Resp 18; Pulse Ox 98% on R/A; eh3 13:30 BP 117 / 63; Pulse 54; Resp 20; Pulse Ox 95% on R/A; eh3 09:25 Body Mass Index 25.30 (87.00 kg, 185.42 cm) 3 ED Course: 09:24 Patient arrived in ED. bd 09:25 Roseanne Lopez FNP-C is PHCP. snw 09:25 Diogo Jacobo DO is Attending Physician. snw 09:25 Arm band placed on. eh3 09:28 Vero Blackman, RN is Primary Nurse. eh3 09:30 Patient has correct armband on for positive identification. Bed in low position. Call 3 light in reach. Side rails up X2. Provided Education on: use of call abel. Client placed on continuous cardiac and pulse oximetry monitoring. NIBP monitoring applied. 09:32 Triage completed. eh3 09:57 Chest Single View XRAY In Process Unspecified. EDMS 10:15 Missed attempt(s): 20 gauge in right forearm. bc6 10:28 TSH Sent. bc6 10:28 TS Sent. bc6 10:28 Troponin HS Sent. bc6 10:28 Blood Culture Adult (2) Sent. bc6 10:28 CBC with Diff Sent. bc6 10:28 Lactate w/ 2H reflex if indic. Sent. bc6 10:28 CMP Sent. bc6 10:28 Protime (+inr) Sent. bc6 10:28 Ptt, Activated Sent. bc6 10:28 Urinalysis w/ reflexes Sent. bc6 10:28 Inserted saline lock: 20 gauge in right antecubital area, using aseptic technique. bc6 Blood collected. 10:47 Mykel Edmond MD is Hospitalizing Provider. snw 12:30 Diet: Patient given snack. Patient given water. Vomited food/fluids. Pt states he did eh3 not feel nauseated but "had a coughing fit" and vomited some of the food. 14:30 No provider procedures requiring assistance completed. Patient admitted, IV remains in [facility] place. Administered Medications: 11:18 Drug: Furosemide IVP 20 mg IVP once; give over 2 minutes Route: IVP; Site: right [facility] forearm; 12:00 Follow up: Response: No adverse reaction [facility] Medication: 14:30 VIS not applicable for this client. [facility] Outcome: 10:49 Decision to Hospitalize by Provider. snw 14:30 Admitted to ER Hold. Please see [facility] for further documentation. [facility] 14:30 Condition: stable 14:30 Instructed on the need for admit, 18:30 Admitted to Med/surg accompanied by tech, via wheelchair, room 229, Report called to [address] 18:39 Patient left the ED. Signatures: Dispatcher [employer] EDMS rAiadna Huntley Shelly, CUSTODIAL MANAGER-C CUSTODIAL MANAGER-Csnw Tisha Ward RN RN Vero Blackman RN RN [facility] Georgina Yarbrough 6 Corrections: (The following items were deleted from the chart) 12:23 09:25 BP 134 / 68; Pulse 57bpm; Resp 18bpm; Pulse Ox 96% RA; Temp 98.3F Oral; [place] [id number] 15:03 15:03 VIS not applicable for this client. [place] [id number]
[2023-01-28 11:04] LABS: Albumin 3.2 g/dL (3.4-5.0); Bilirubin Total 1.1 mg/dL (0.2-1.0); Potassium 4.7 mEq/L (3.5-5.1); Protein, Total 7.5 g/dL (6.4-8.2); Thyroid Stimulating Hormone 1.72 uIU/mL (0.358-3.740); Troponin High Sensitivity 42.5 pg/mL (<58.9)
[2023-01-28] MEDS ORDERED: FUROSEMIDE 20 MG/ 2ML VIAL ONE ×2 (11:15→17:44)
--- NOTE | 2023-01-28 11:36 | P.HP ---
Certification for Inpatient Patient admitted to: Observation With expected LOS: <2 Midnights Patient will require the following post-hospital care: None Practitioner: I am a practitioner with admitting privileges, knowledge of patient current condition, hospital course, and medical plan of care. Services: Services provided to patient in accordance with Admission requirements found in Title 42 Section 412.3 of the Code of Federal Regulations Patient History Date of Service: 01/28/23 Reason for admission: CHF, postviral fatigue History of Present Illness: Mr. Collins, 77-year-old male patient with history of atrial fibrillation, CAD, CHF, insulin-dependent diabetes mellitus, hypertension presented to the ER EMS with complaints of nausea, generalized weakness. Patient is positive for weakness and tiredness, moderate in severity. Patient reports that he was diagnosed with the flu 1 week ago and is recovering, patient denies shortness of breath, chest pain, palpitation. Patient denies abdominal pain, nausea, vomiting. Patient denies fever chills. Reports that he is taking Keflex for last 10 days for wound on the right lower extremity. Patient has right lower extremity edema and redness, right ankle laceration, non-healing. Left below- knee amputation. ED course Vital signs blood pressure 134/68, pulse 57, respiration 18, temperature 98.3, pulse ox 96% on room air. Initial lab workes normal except mild renal insufficiency. Initial chest x-ray shows interstitial prominence and scattered patchy airspace opacities, suggestive of congestive heart failure or pulmonary edema. Admitting the patient with a diagnosis of congestive heart failure unspecified, diabetes mellitus insulin-dependent with hyperglycemia, postviral fatigue, anem ia. Allergies acetaminophen [From Vicodin] Adverse Reaction (Verified 02/08/20 05:56) Nausea/Vomiting codeine Adverse Reaction (Verified 02/08/20 05:56) Nausea/Vomiting hydrocodone bitartrate [From Vicodin] Adverse Reaction (Verified 02/08/20 05:56) Nausea/Vomiting Home medications list reviewed: Yes Home Medications: Insulin Degludec [Tresiba Flextouch U-200] 40 units SQ DAILY 04/14/18 Liothyronine [Cytomel*] 1 tab PO DAILY 04/14/18 Tamsulosin HCl 0.4 mg PO DAILY 04/14/18 Sotalol HCl [Betapace*] 80 mg PO BID 6AM 6PM #60 tab 05/28/19 glipiZIDE [Glipizide ER] 10 mg PO BID 02/08/20 Atorvastatin Calcium [Lipitor] 20 mg PO BEDTIME 04/22/20 Bumetanide [Bumex*] 1 mg PO BID #60 tab 04/23/20 Dapagliflozin Propanediol [Farxiga] 5 mg PO DAILY 03/28/21 Losartan Potassium 25 mg PO DAILY 03/28/21 Rivaroxaban [Xarelto] 20 mg PO DAILY 03/28/21 Rosuvastatin Calcium [Crestor] 20 mg PO DAILY 03/28/21 - Past Medical/Surgical History Diabetic: Yes -: Diabetes mellitus type 2 -: hypertention -: CAD -: chronic systolic CHF -: Atrial fibrillation on chronic anticoagulation -: Prostate cancer -: carotid stent -: CABG t2016 -: BKA left leg -: Prostate surgery -: bladder surgery -: skin graft Psychosocial/ Personal History: Patient lives at home with his family - Family History Father -: Heart disease Mother -: Lung disease Notes: COPD, leaking heart valve, emphysema - Social History Alcohol use: No CD- Drugs: No Caffeine use: Yes Review of Systems 10-point ROS is otherwise unremarkable Physical Examination - Physical Exam General: Alert, Oriented x3 HEENT: Atraumatic, Normocephalic Neck: Supple Respiratory: Clear to auscultation bilaterally, Normal air movement, Diminished (Diminished at the bases) Cardiovascular: Normal pulses, Regular rate/rhythm, Normal S1 S2, Edema (Right lower extremity edema 1+) Capillary refill: <2 Seconds Gastrointestinal: Normal bowel sounds, Soft and benign Musculoskeletal: No clubbing, Other (Swelling of right lower extremity 1+, left BKA) Integumentary: Skin breakdown (Right lower extremity), Erythema, Warmth Neurological: Normal gait, Normal speech, Normal tone, Sensation intact - Studies Laboratory Data (last 24 hrs) 01/28/23 01/28/23 01/28/23 10:15 10:15 10:15 WBC 8.80 Hgb 10.3 L Hct 31.5 L Plt Count 391 PT 25.8 H INR 2.35 APTT 44.2 H Sodium 138 Potassium 4.7 BUN 36 H Creatinine 1.36 H Glucose 164 H Total Bilirubin 1.1 H AST 17 ALT 19 Alkaline Phosphatase 87 Assessment and Plan - Problems (Diagnosis) (1) Acute diastolic CHF (congestive heart failure) Current Visit: No Status: Acute (2) Chronic kidney disease, stage 3 Current Visit: No Status: Acute (3) Postviral fatigue syndrome Current Visit: Yes Status: Acute Plan: Acute, patient is recovering from influenza almost a week ago Patient denies fever, chills or cough Reporting severe fatigue . Admitted the patient to the hospital for close observation as chest x-ray shows pulmonary edema We will continue to monitor the patient closely (4) Nonhealing ulcer of lower extremity limited to breakdown of skin Current Visit: Yes Status: Acute Plan: Chronic, nonhealing wound on the right lower extremity, patient had a skin laceration on the right lower extremity almost 2 months ago. Patient is still taking Keflex prescribed on the last hospital visit. Left right lower extremity with edema and warmth and redness Admitting the patient for IV antibiotics therapy Qualifiers: Laterality: right Qualified Code(s): L97.911 - Non-pressure chronic ulcer of unspecified part of right lower leg limited to breakdown of skin (5) Type 2 diabetes mellitus with hyperglycemia, with long-term current use of insulin Current Visit: Yes Status: Chronic Plan: Chronic, controlled on glimepiride, Farxiga, Tresiba at home. Denies hypoglycemia, patient reported her blood sugar runs between 100-200 Blood sugar in the hospital is 164 today Blood sugar checks before meals and at bedtime with moderate sliding scale of regular insulin Diabetic diet, hypoglycemic precautions A1c in the morning (6) Acute on chronic diastolic CHF (congestive heart failure) Current Visit: Yes Status: Acute Plan: Acute on Chronic Decompensated Systolic/Diastolic Congestive Heart Failure with unknown ejection Fraction Patient presents with symptoms of extreme fatigue, dyspnea on exertion, lower extremity edema.. On exam, patient demonstrates bilateral lower extremity edema. Reports some upper respiratory symptoms for more than a week. At this time, will admit for diuresis and medical optimization. - Consult Cardiology - recommendations appreciated - Ordered transthoracic echocardiogram - Diuresis with Lasix for today - Daily weights - Strict I/O - Cardiac diet, 2 L fluid restriction, 2 g Na restriction - Plan CODE STATUS full code DVT prophylaxis Xarelto Diet diabetic diet Discharge Plan: Home Plan to discharge in: 24 Hours - Advance Directives Does patient have a Living Will: No Does patient have a Durable POA for Healthcare: Yes - Code Status/Comfort Care Code Status Assessed: Yes (Full code) Code Status: Full Code Critical Care: No Time Spent Managing Pts Care (In Minutes): 55 (minutes)
[2023-01-28 11:41] LABS: SARS-CoV-2 Antigen Rapid Res Negative (Negative)
[2023-01-28] MEDS ORDERED: ACETAMINOPHEN 500 MG TAB PO PRN (12:24)
[2023-01-28] MEDS ORDERED: ALBUTEROL 2.5 MG/3 ML NEB SOL NEB PRN (12:24)
[2023-01-28] MEDS ORDERED: ONDANSETRON 4 MG/2 ML VIAL IV PRN (12:24)
[2023-01-28] MEDS ORDERED: MAGNESIUM HYDROXIDE 8% 30 ML PO PRN (12:24)
[2023-01-28] MEDS: INSULIN REGULAR (HUMAN) 100 UNIT/ML SQ SCH ×3 (12:24→19:26)
[2023-01-28 12:26] VITALS: BMI 25.2
[2023-01-28 13:25] LABS: Specific Gravity 1.021 (1.005-1.030); Urine Bacteria >50 /HPF (<20); Urine Bilirubin NEGATIVE (Negative); Urine Blood 3+ (OVER) (Negative); Urine Clarity Extremely Turbid (Clear); Urine Color Light-Yellow (Yellow); Urine Glucose 4+ (Over) (Negative); Urine Mucus Slight /HPF (None Seen); Urine Protein TRACE (Negative); Urine RBC >50 /HPF (None Seen); Urine Urobilinogen Normal (Normal); Urine WBC Clump Rare /HPF (None Seen)
[2023-01-28] MEDS: FUROSEMIDE 20 MG/ 2ML VIAL IV SCH (17:00)
[2023-01-28] MEDS ORDERED: SOTALOL HCL 80 MG TAB PO SCH (18:00)
[2023-01-28] MEDS ORDERED: KETOROLAC 30 MG/ML INJ ONE (18:46)
[2023-01-28] MEDS: guaiFENesin 100 MG/5 ML UCUP PO PRN (20:28)
[2023-01-28] MEDS: TAMSULOSIN 0.4 MG SR CAP PO SCH (20:29)
[2023-01-28] MEDS: RIVAROXABAN 20 MG TABLET PO SCH (20:30)
[2023-01-28] MEDS: MAGNESIUM OXIDE 400 MG TAB PO SCH (20:30)
[2023-01-28] MEDS: OSELTAMIVIR 75 MG CAP PO SCH (20:31)
[2023-01-28] MEDS ORDERED: OSELTAMIVIR 75 MG CAP PO ONE (21:00)
[2023-01-29 02:44] LABS: Protime INR 3.44
[2023-01-29 02:56] LABS: Absolute Lymphocytes (CBC) 0.9 K/uL (0.7-4.9); Hematocrit 29.3 % (39.6-49.0); Lymphocytes % 8.5 % (15.3-44.8); MPV 6.7 fL (7.6-11.3); Platelets 334 thou/uL (152-406); RBC Red Blood Cell Count 3.29 M/uL (4.33-5.43)
[2023-01-29 03:02] LABS: Magnesium 2.7 mg/dL (1.6-2.4); Phosphorus 4.4 mg/dL (2.5-4.9); Potassium 4.5 mEq/L (3.5-5.1)
[2023-01-29] MEDS: guaiFENesin 100 MG/5 ML UCUP PO PRN ×3 (03:29→21:13)
[2023-01-29] MEDS: INSULIN REGULAR (HUMAN) 100 UNIT/ML SQ SCH ×4 (07:30→21:00)
[2023-01-29] MEDS ORDERED: PNEUMOCOCCAL VACCINE 0.5 ML IMVAC ONE (08:00)
[2023-01-29] MEDS ORDERED: INFLUENZA VACCINE (for 6+ mo) 0.5 ML DOSE IMVAC ONE (08:00)
[2023-01-29] MEDS ORDERED: RIVAROXABAN 20 MG TABLET PO SCH (09:00)
[2023-01-29] MEDS: MAGNESIUM OXIDE 400 MG TAB PO SCH ×2 (09:00→21:14)
[2023-01-29] MEDS: ROSUVASTATIN 10 MG TAB PO SCH (09:00)
[2023-01-29] MEDS: OSELTAMIVIR 75 MG CAP PO SCH (10:09)
[2023-01-29] MEDS: LOSARTAN POTASSIUM 50 MG TABLET PO SCH (10:09)
[2023-01-29] MEDS: LIOTHYRONINE SOD 25 MCG TAB PO SCH (10:09)
[2023-01-29] MEDS: CEFTRIAXONE 1,000 MG in NA CHLORIDE 0.9% 50 ML IVPB SCH (10:11)
[2023-01-29] MEDS: FINASTERIDE 5 MG TAB PO SCH (10:11)
[2023-01-29] MEDS: FAMOTIDINE 20 MG TAB PO SCH (10:11)
[2023-01-29] MEDS: FUROSEMIDE 20 MG/ 2ML VIAL IV SCH ×2 (10:11→16:56)
[2023-01-29] MEDS ORDERED: LOPERAMIDE HCL 2 MG CAPSULE PO PRN (15:51)
--- NOTE | 2023-01-29 17:53 | P.PN ---
Subjective Date of Service: 01/29/23 Chief Complaint: CHF, postviral fatigue Subjective: No new changes, Improving, Doing well Patient is alert and oriented Denies any chest pain or shortness of breath no acute distress With a wound dressing on the right lower extremity Patient refused to open the wound for assessment Vital signs stable Cussed with the nursing staff Review of Systems 10-point ROS is otherwise unremarkable Physical Examination - Vital Signs Temperature: 98.1 F Blood Pressure: 142/71 Pulse: 76 Respirations: 16 Pulse Ox (%): 96 - Physical Exam General: Alert, Oriented x3 HEENT: Atraumatic, Normocephalic Neck: Supple, 2+ carotid pulse no bruit Respiratory: Clear to auscultation bilaterally, Normal air movement Cardiovascular: No edema, Normal pulses, Edema (1+ pitting edema on the right lower extremity) Capillary refill: <2 Seconds Gastrointestinal: Soft and benign Musculoskeletal: No clubbing, No swelling, No contractures, Other (Left below- knee amputation) Neurological: Normal gait, Normal speech, Normal tone, Normal affect Assessment And Plan - Current Problems (Diagnosis) (1) Acute diastolic CHF (congestive heart failure) Current Visit: No Status: Acute (2) Chronic kidney disease, stage 3 Current Visit: No Status: Acute (3) Postviral fatigue syndrome Current Visit: Yes Status: Acute Plan: Acute, patient is recovering from influenza almost a week ago Patient denies fever, chills or cough Reporting severe fatigue . Admitted the patient to the hospital for close observation as chest x-ray shows pulmonary edema We will continue to monitor the patient closely (4) Nonhealing ulcer of lower extremity limited to breakdown of skin Current Visit: Yes Status: Acute Plan: Chronic, nonhealing wound on the right lower extremity, patient had a skin laceration on the right lower extremity almost 2 months ago. Patient is still taking Keflex prescribed on the last hospital visit. Left right lower extremity with edema and warmth and redness Admitting the patient for IV antibiotics therapy Qualifiers: Laterality: right Qualified Code(s): L97.911 - Non-pressure chronic ulcer of unspecified part of right lower leg limited to breakdown of skin (5) Type 2 diabetes mellitus with hyperglycemia, with long-term current use of insulin Current Visit: Yes Status: Chronic Plan: Chronic, controlled on glimepiride, Farxiga, Tresiba at home. Denies hypoglycemia, patient reported her blood sugar runs between 100-200 Blood sugar in the hospital is 164 today Blood sugar checks before meals and at bedtime with moderate sliding scale of regular insulin Diabetic diet, hypoglycemic precautions A1c in the morning (6) Acute on chronic diastolic CHF (congestive heart failure) Current Visit: Yes Status: Acute Plan: Acute on Chronic Decompensated Systolic/Diastolic Congestive Heart Failure with unknown ejection Fraction Patient presents with symptoms of extreme fatigue, dyspnea on exertion, lower extremity edema.. On exam, patient demonstrates bilateral lower extremity edema. Reports some upper respiratory symptoms for more than a week. At this time, will admit for diuresis and medical optimization. - Consult Cardiology - recommendations appreciated - Ordered transthoracic echocardiogram - Diuresis with Lasix for today - Daily weights - Strict I/O - Cardiac diet, 2 L fluid restriction, 2 g Na restriction
--- NOTE | 2023-01-29 18:12 | P.CNS ---
Date of Consult: 01/29/23 Reason for Consult: CHF Chief Complaint: CHF, postviral fatigue History of Present Illness: This is a 77-year-old male with past medical history of A-fib, coronary artery disease, HFpEF and diabetes who is here with worsening shortness of breath. Patient states he has worsening shortness of breath over the last 24 hours prior to presentation so he came into the ER. Patient denies any chest pain fevers or chills. Patient was diuresed and he feels much better since he has been here Allergies acetaminophen [From Vicodin] Adverse Reaction (Verified 02/08/20 05:56) Nausea/Vomiting codeine Adverse Reaction (Verified 02/08/20 05:56) Nausea/Vomiting hydrocodone bitartrate [From Vicodin] Adverse Reaction (Verified 02/08/20 05:56) Nausea/Vomiting Home Medications: Insulin Degludec [Tresiba Flextouch U-200] 40 units SQ BEDTIME 04/14/18 Liothyronine [Cytomel*] 1 tab PO DAILY 04/14/18 Tamsulosin HCl 0.4 mg PO BEDTIME 04/14/18 Sotalol HCl [Betapace*] 80 mg PO BID 6AM 6PM #60 tab 05/28/19 glipiZIDE [Glipizide ER] 10 mg PO BID 02/08/20 Dapagliflozin Propanediol [Farxiga] 5 mg PO DAILY 03/28/21 Losartan Potassium 25 mg PO DAILY 03/28/21 Rivaroxaban [Xarelto] 20 mg PO BEDTIME 03/28/21 Rosuvastatin Calcium [Crestor] 20 mg PO DAILY 03/28/21 Famotidine 20 mg PO DAILY 01/28/23 Finasteride 5 mg PO DAILY 01/28/23 Magnesium Oxide [Magnesium] 500 mg PO BID 01/28/23 Oseltamivir Phosphate [Tamiflu] 75 mg PO BID 01/28/23 Zinc Gluconate [Zinc] 30 mg PO DAILY 01/28/23 Liothyronine [Cytomel*] 25 mcg PO ACB tab 01/29/23 - Past Medical/Surgical History Diabetic: Yes -: Diabetes mellitus type 2 -: hypertention -: CAD -: chronic systolic CHF -: Atrial fibrillation on chronic anticoagulation -: Prostate cancer -: carotid stent -: CABG quintuple 2016 -: BKA left leg -: Prostate surgery -: bladder surgery -: skin graft Psychosocial/ Personal History: Patient lives at home with his family - Family History Father Medical History: Heart disease Mother Medical History: Lung disease Notes: COPD, leaking heart valve, emphysema - Social History Smoking Status: Unknown if ever smoked Alcohol use: No CD- Drugs: No Caffeine use: No Place of Residence: Home Review of Systems 10-point ROS is otherwise unremarkable Physical Examination Temp Pulse Resp BP Pulse Ox 98.1 F 76 16 142/71 H 96 01/29/23 17:56 01/29/23 17:56 01/29/23 17:56 01/29/23 17:56 01/29/23 17:56 General: Oriented x3 HEENT: Atraumatic Neck: Supple Respiratory: Clear to auscultation bilaterally Cardiovascular: Regular rate/rhythm Gastrointestinal: Soft and benign Integumentary: No rashes Neurological: Normal speech Conclusions/Impression: 1. CHF: Acute on chronic, diastolic, improved with IV Lasix continue IV Lasix today and switch to p.o. tomorrow. Anticipate discharge tomorrow 2. A-fib: Continue Xarelto Acute for the current consult
[2023-01-29] MEDS: RIVAROXABAN 20 MG TABLET PO SCH (21:13)
[2023-01-29] MEDS: TAMSULOSIN 0.4 MG SR CAP PO SCH (21:14)
[2023-01-29] MEDS ORDERED: MELATONIN 5 MG TABLET PO PRN (21:19)
[2023-01-30 02:42] LABS: Absolute Lymphocytes (CBC) 0.7 K/uL (0.7-4.9); Hematocrit 29.2 % (39.6-49.0); Lymphocytes % 6.7 % (15.3-44.8); MCV 88.4 fL (80-100); MPV 6.8 fL (7.6-11.3); Platelets 343 thou/uL (152-406)
[2023-01-30 02:45] LABS: Protime INR 3.39
[2023-01-30 03:04] LABS: Magnesium 2.1 mg/dL (1.6-2.4); Phosphorus 4.2 mg/dL (2.5-4.9); Potassium 4.1 mEq/L (3.5-5.1)
[2023-01-30] MEDS: guaiFENesin 100 MG/5 ML UCUP PO PRN (05:51)
--- NOTE | 2023-01-30 06:47 | P.PN ---
Subjective Date of Service: 01/30/23 Chief Complaint: CHF, postviral fatigue Physical Examination - Vital Signs Temperature: 97.6 F Blood Pressure: 104/56 Pulse: 70 Respirations: 18 Pulse Ox (%): 96
[2023-01-30] MEDS: MAGNESIUM OXIDE 400 MG TAB PO SCH (09:00)
[2023-01-30 09:22] VITALS: O2SAT 96
[2023-01-30] MEDS: LIOTHYRONINE SOD 25 MCG TAB PO SCH (09:24)
[2023-01-30] MEDS: INSULIN REGULAR (HUMAN) 100 UNIT/ML SQ SCH ×2 (09:25→12:30)
[2023-01-30] MEDS: FUROSEMIDE 20 MG/ 2ML VIAL IV SCH (09:25)
[2023-01-30] MEDS: ROSUVASTATIN 10 MG TAB PO SCH (09:25)
[2023-01-30] MEDS: LOSARTAN POTASSIUM 50 MG TABLET PO SCH (09:25)
[2023-01-30] MEDS: FINASTERIDE 5 MG TAB PO SCH (09:26)
[2023-01-30] MEDS: FAMOTIDINE 20 MG TAB PO SCH (09:26)
[2023-01-30] MEDS: CEFTRIAXONE 1,000 MG in NA CHLORIDE 0.9% 50 ML IVPB SCH (09:26)
[2023-01-30 10:26] VITALS: BP 118/61; TEMP 99.1
--- NOTE | 2023-01-30 10:46 | P.DS ---
Admission Date: 01/28/23 Discharge Date: 01/30/23 Disposition: ROUTINE DISCHARGE Discharge Condition: GOOD Reason for Admission: CHF, postviral fatigue Brief History of Present Illness: Mr. Collins, 77-year-old male patient with history of atrial fibrillation, CAD, CHF, insulin-dependent diabetes mellitus, hypertension presented to the ER EMS with complaints of nausea, generalized weakness. Patient is positive for weakness and tiredness, moderate in severity. Patient reports that he was diagnosed with the flu 1 week ago and is recovering, patient denies shortness of breath, chest pain, palpitation. Patient denies abdominal pain, nausea, vomiting. Patient denies fever chills. Reports that he is taking Keflex for last 10 days for wound on the right lower extremity. Patient has right lower extremity edema and redness, right ankle laceration, non-healing. Left below- knee amputation. Vital signs blood pressure 134/68, pulse 57, respiration 18, temperature 98.3, pulse ox 96% on room air. Initial lab workes normal except mild renal insufficiency. Initial chest x-ray shows interstitial prominence and scattered patchy airspace opacities, suggestive of congestive heart failure or pulmonary edema. Admitting the patient with a diagnosis of congestive heart failure unspecified, diabetes mellitus insulin-dependent with hyperglycemia, postviral fatigue, anemia. General: Alert, Oriented x3 HEENT: Atraumatic, Normocephalic Neck: Supple, 2+ carotid pulse no bruit Respiratory: Clear to auscultation bilaterally, Normal air movement Cardiovascular: No edema, Normal pulses, Capillary refill: <2 Seconds Gastrointestinal: Soft and benign Musculoskeletal: No clubbing, No swelling, No contractures, Other (Left below- knee amputation) Neurological: Normal gait, Normal speech, Normal tone, Normal affect Hospital Course: Discharge summary, Mr Collins was treated for Acute on chronic heart failure, improved, CKD stage 3, CXR show IMPRESSION: Central interstitial prominence and scattered patchy airspace opacities, suggestive of congestive heart failure or pulmonary edema. treated with lasix IV,placed on fluid restriction, 2gm low sodium diet. He reports feelling better, request to Discharge home today. No reported fever, cough, Shortness of breath on evaluation Resume home medications, 2 gram low sodium Cardiac diet, Return to ER for worsening of symptoms. Vital Signs/Physical Exam: Temp Pulse Resp BP Pulse Ox 99.1 F 64 18 118/61 97 11/10/23 08:00 01/30/23 08:00 01/30/23 08:00 01/30/23 08:00 01/30/23 08:00 Laboratory Data at Discharge: WBC 11.20 thou/uL (4.3-10.9) H 01/30/23 01:36 Hgb 10.0 g/dL (13.6-17.9) L 01/30/23 01:36 Hct 29.2 % (39.6-49.0) L 01/30/23 01:36 Plt Count 343 thou/uL (152-406) 01/30/23 01:36 PT 37.3 SECONDS (9.5-12.5) H 01/30/23 01:36 INR 3.39 01/30/23 01:36 APTT 44.2 SECONDS (24.3-36.9) H 01/28/23 10:15 Sodium 138 mEq/L (136-145) 01/30/23 01:36 Potassium 4.1 mEq/L (3.5-5.1) 01/30/23 01:36 BUN 35 mg/dL (7-18) H 01/30/23 01:36 Creatinine 1.47 mg/dL (0.70-1.30) H 01/30/23 01:36 Glucose 188 mg/dL (74-106) H 01/30/23 01:36 Phosphorus 4.2 mg/dL (2.5-4.9) 01/30/23 01:36 Magnesium 2.1 mg/dL (1.6-2.4) 01/30/23 01:36 Total Bilirubin 1.1 mg/dL (0.2-1.0) H 01/28/23 10:15 AST 17 U/L (15-37) 01/28/23 10:15 ALT 19 U/L (16-61) 01/28/23 10:15 Alkaline Phosphatase 87 U/L (45-117) 01/28/23 10:15 Triglycerides 64 mg/dL (<150) 01/29/23 02:16 Cholesterol 75 mg/dL (<200) 01/29/23 02:16 HDL Cholesterol 38 mg/dL (40-60) L 01/29/23 02:16 Cholesterol/HDL Ratio 1.97 01/29/23 02:16 Home Medications: Insulin Degludec [Tresiba Flextouch U-200] 40 units SQ BEDTIME 04/14/18 Liothyronine [Cytomel*] 1 tab PO DAILY 04/14/18 Tamsulosin HCl 0.4 mg PO BEDTIME 04/14/18 Sotalol HCl [Betapace*] 80 mg PO BID 6AM 6PM #60 tab 05/28/19 glipiZIDE [Glipizide ER] 10 mg PO BID 02/08/20 Dapagliflozin Propanediol [Farxiga] 5 mg PO DAILY 03/28/21 Losartan Potassium 25 mg PO DAILY 03/28/21 Rivaroxaban [Xarelto] 20 mg PO BEDTIME 03/28/21 Rosuvastatin Calcium [Crestor] 20 mg PO DAILY 03/28/21 Famotidine 20 mg PO DAILY 01/28/23 Finasteride 5 mg PO DAILY 01/28/23 Magnesium Oxide [Magnesium] 500 mg PO BID 01/28/23 Oseltamivir Phosphate [Tamiflu] 75 mg PO BID 01/28/23 Zinc Gluconate [Zinc] 30 mg PO DAILY 01/28/23 Liothyronine [Cytomel*] 25 mcg PO ACB tab 01/29/23 Physician Discharge Instructions: -Follow-up with PCP in 1 to 2 weeks -Please call at [phone] if any questions regarding hospital stay -Please call nursing station at [phone] if any nursing or medication questions -Return to the emergency room if symptoms worsen Followup: NONE,NONE [Primary Care Provider] -
--- NOTE | 2023-01-31 14:22 | EKG ---
Test Date: 2023-01-28 Test Time: 10:26:17 City Councilman: LILLIAN MEASUREMENT RESULTS: Intervals: Rate: 55 CT: 220 QRSD: 100 QT: 504 QTc: 482 [place]: P: 97 CT: 220 QRS: 116 T: -37 INTERPRETIVE STATEMENTS: Suspect arm lead reversal, interpretation assumes no reversal Sinus bradycardia with sinus arrhythmia with 1st degree AV block Right axis deviation Nonspecific T wave abnormality Prolonged QT Abnormal ECG Compared to ECG 01/22/2023 15:10:43 T-wave abnormality now present Prolonged QT interval now present Myocardial infarct finding no longer present Electronically Signed On 01-31-23 14:11:55 ORTHOTIC FITTER by Philip Pineda
--- NOTE | 2023-02-02 07:27 | ECHO ---
HEIGHT: 6 ft 1 in WEIGHT: 191 lb 12.835 oz DATE OF STUDY: 01/29/[address]: Meet Bro NP 2-DIMENSIONAL: YES M.MODE: YES DOPPLER: YES COLOR FLOW: YES TDS: PORTABLE: YES DEFINITY: BUBBLE STUDY: DIAGNOSIS: CONGESTIVE HEART FAILURE CARDIAC HISTORY: CATHERIZATION: YES SURGERY: YES PROSTHETIC VALVE: NO PACEMAKER: NO MEASUREMENTS (cm) DIASTOLIC (NORMALS) SYSTOLIC (NORMALS) IVSd 1.1 (0.6-1.2) LA Diam 3.1 (1.9-4.0) LVEF 35% LVIDd 5.2 (3.5-5.7) LVIDs 4.5 (2.0-3.5) %FS 14% LVPWd 1.2 (0.6-1.2) Ao Diam 3.3 (2.0-3.7) 2 DIMENSIONAL ASSESSMENT: RIGHT ATRIUM: NORMAL LEFT ATRIUM: NORMAL RIGHT VENTRICLE: NORMAL LEFT VENTRICLE: DEPRESSED EJECTION FRACTION TRICUSPID VALVE: MILD TRICUSPID REGURGITATION MITRAL VALVE: MILD MITRAL REGURGITATION PULMONIC VALVE: MILD PULMONIC INSUFFICIENCY AORTIC VALVE: AORTIC INSUFFICIENCY PERICARDIAL EFFUSION: NONE AORTIC ROOT: NORMAL LEFT VENTRICULAR WALL MOTION: MODERATE GLOBAL HYPOKINESIS DOPPLER/COLOR FLOW: SEE BELOW COMMENTS: 1. MODERATELY DEPRESSED LEFT VENTRICULAR EJECTION FRACTION 30-35% 2. MODERATE GLOBAL HYPOKINESIS 3. MILD MITRAL REGURGITATION, TRICUSPID REGURGITATION, PULMONIC INSUFFICIENCY 4. MODERATE AORTIC INSUFFICIENCY 5. MODERATE DIASTOLIC DYCFUNCTION TECHNOLOGIST: EHSAN WU
== END 2023-01-30 14:49 | disposition home or self-care (01) | DRG 291 ==
LOC: ER 09:20 → ERHOLD 11:17 → 2ND 18:26
PROVIDERS: ADMIT Internal Medicine Nephrology; ATTEND Internal Medicine Nephrology
DX: I13.0 Hypertensive heart and chronic kidney disease with heart failure and stage 1 through stage 4 chronic kidney disease, or unspecified chronic kidney disease (principal); I50.33 Acute on chronic diastolic (congestive) heart failure; L97.911 Non-pressure chronic ulcer of unspecified part of right lower leg limited to breakdown of skin; N18.30 Chronic kidney disease, stage 3 unspecified; E11.22 Type 2 diabetes mellitus with diabetic chronic kidney disease; D63.1 Anemia in chronic kidney disease; E11.65 Type 2 diabetes mellitus with hyperglycemia; I48.91 Unspecified atrial fibrillation; G93.31 Postviral fatigue syndrome; I25.10 Atherosclerotic heart disease of native coronary artery without angina pectoris; Z23 Encounter for immunization; Z95.1 Presence of aortocoronary bypass graft; Z79.4 Long term (current) use of insulin; Z88.8 Allergy status to other drugs, medicaments and biological substances; Z88.5 Allergy status to narcotic agent; Z79.01 Long term (current) use of anticoagulants; Z79.84 Long term (current) use of oral hypoglycemic drugs; Z11.52 Encounter for screening for COVID-19; Z85.46 Personal history of malignant neoplasm of prostate; Z89.512 Acquired absence of left leg below knee; Z79.899 Other long term (current) drug therapy
CPT/HCPCS: 36415; 71045; 80048; 80053; 80061; 81001; 82947; 83605; 83735; 83880; 84100; 84443; 84484; 85025; 85610; 85730; 86850; 86900; 86901; 87040; 87077; 87086; 87088; 87186; 87811; 90471; 90732; 93005; 93306; 96374; 99285; J0696; J1815; J1940; Q2035

== ENCOUNTER → 2023-03-17 | Emergency (ER) | payer BC, OTHER ==
[~2023-03-17] MED LIST: ACETAMINOPHEN 500 MG TAB ONE; GUAIFENESIN/DM 5 ML UCUP ONE; IBUPROFEN 400 MG TAB ONE; ONDANSETRON 4 MG (ODT) TAB ONE; PROMETHAZINE 25 MG TABLET ONE; guaiFENesin 100 MG/5 ML UCUP ONE
[2023-03-17 02:03] LABS: SARS-CoV-2 Antigen Rapid Res Positive (Negative)
--- NOTE | 2023-03-17 06:50 | EDPHYS ---
Physician Documentation [facility] Name: Navjot Collins Age: 77 yrs Sex: Male : 1945 Arrival Date: 03/17/2023 Time: : Bed 14 Private MD: ED Physician All Wyatt HPI: 03/17 01:29 This 77 yrs old Male presents to ER via Unassigned with complaints of cough. sp4 01:30 Patient is a 77-year-old male who presents for cough, congestion, runny nose, sore kb throat and general malaise for 4 days. Denies fever, chills or bodyaches.. Historical: - Allergies: 01:53 Codeine; nw1 01:53 Demerol; nw 01:53 fedrazil; nw 01:53 Vicodin; nw - PMHx: 01:53 Atrial Fib; CAD; CHF; Diabetes - IDDM; HTN; PROSTATE CA; nw1 - PSHx: 01:53 Amputated below knee; Coronary artery bypass graft; Stented artery; nw1 - Immunization history:: Adult Immunizations up to date, Client reports receiving the 2nd dose of the Covid vaccine, Last tetanus immunization: up to date Pneumococcal vaccine is up to date, Flu vaccine is up to date. Meningococcal vaccine is up to date. - Social history:: Smoking status: Patient denies any tobacco usage or history of. Patient/guardian denies using alcohol, street drugs, IV drugs, caffeine, over the counter diet medications, tobacco products. ROS: 01:31 Abdomen/GI: Negative for abdominal pain, nausea, vomiting, diarrhea, and constipation, kb 01:31 Constitutional: Positive for fatigue, malaise, 01:31 ENT: Positive for rhinorrhea, sinus congestion, sore throat, 01:31 Respiratory: Positive for cough, 01:31 All other systems are negative, Exam: :31 Constitutional: This is a well developed, well nourished patient who is awake, alert, kb and in no acute distress. Head/Face: Normocephalic, atraumatic. ENT: Moist Mucous membranes Cardiovascular: Regular rate Respiratory: Respirations even and unlabored. No increased work of breathing. Talking in full sentences Abdomen/GI: Soft, non-tender. No distention Skin: Warm, dry with normal turgor. Normal color. Neuro: Awake and alert, GCS 15, oriented to person, place, time, and situation. Moves all extremities. Normal gait. 01:31 Musculoskeletal/extremity: Exam is negative for acute changes, kb Vital Signs: 01:51 BP 128 / 81; Pulse 68; Resp 15; Temp 98.9; Pulse Ox 97% on R/A; Weight 88.45 kg; Height nw1 6 ft. 1 in. ; 04:00 BP 118 / 57; Pulse 85; Resp 17; Pulse Ox 96% ; nw1 05:00 BP 120 / 63; Pulse 68; Resp 15; Pulse Ox 97% ; nw1 01:51 Body Mass Index 25.73 (88.45 kg, 185.42 cm) nw1 Gerda Coma Score: 01:55 Eye Response: spontaneous(4). Motor Response: obeys commands(6). Verbal Response: nw1 oriented(5). Total: 15. MDM: 01:30 Patient medically screened. kb 01:32 Differential Diagnosis: Bronchitis Influenza Upper Respiratory Infection Allergic kb Rhinitis Pneumonia Other covid, rsv, strep. Data reviewed: vital signs, nurses notes. Historians other than the Patient: EMS: [facility]. 01:52 Transition of care: After a detail discussion of the patient's case, care is kb transferred to All Wyatt MD. 04:47 Differential Diagnosis altered mental status, sepsis, flu. ED course: Chest - CLINICAL sp4 HISTORY: Cough; Congestion TECHNIQUE: Frontal view of the chest. COMPARISON: No relevant prior studies available. FINDINGS: Lungs: Coarsened interstitial markings. No focal consolidation. Pleural space: Unremarkable. No pneumothorax. Heart: The cardiac silhouette is enlarged, in part accentuated by portable technique. Prior CABG. Mediastinum: Unremarkable. Normal mediastinal contour. Bones/joints: Prior median sternotomy. Multilevel spondylosis. No acute fracture. Upper abdomen: Elevation of the right hemidiaphragm. IMPRESSION: No acute disease. . 03/17 01:31 Order name: Flu; Complete Time: 03:16 kb 03/17 01:31 Order name: SARS-COV-2 Antigen Rapid; Complete Time: 02:04 kb 03/17 01:31 Order name: Strep kb 03/17 01:31 Order name: RSV; Complete Time: 03:16 kb 03/17 02:29 Order name: Throat Culture EDMS 03/17 01:31 Order name: Chest Single View XRAY kb Administered Medications: 03:38 Drug: Dextromethorphan-Guaifenesin PO Liquid 10 mg-100 mg/5 mL 10 ml PO once Route: PO; 03:38 Drug: Ibuprofen PO 800 mg PO once Route: PO; 03:38 Drug: Ondansetron PO 8 mg PO once Route: PO; 03:38 Drug: Acetaminophen PO 1000 mg PO once Route: PO; 05:06 Drug: Promethazine PO 25 mg PO once Route: PO; Disposition: 05:01 Co-signature as Attending Physician, All Wyatt MD I agree with the assessment sp4 and plan of care. I reviewed the patient's care provided by Advanced Practice Provider \T\ agree w/ the diagnosis \T\ care plan. I personally saw the pt \T\ performed a substantive portion of the visit, incldng all aspects of the (History/Exam/Medical Decision Making). Disposition Summary: 03/17/23 06:49 Discharge Ordered Problem: new sp4 Symptoms: have improved sp4 Condition: Stable sp4 Diagnosis - Other specified viral diseases sp4 - Acute COVID-19, sp4 Followup: sp4 - With: Private Physician - When: 7 - 10 days - Reason: Continuance of care Discharge Instructions: - Discharge Summary Sheet sp4 - COVID-19 sp4 Forms: - Patient Portal Instructions sp4 Prescriptions: - Paxlovid 300 mg (150 mg x 2)-100 mg Oral Tablet, Dose Pack - take 1 dose pack ORAL route as directed on dose pack take TWO 150 mg tablets of sp4 nirmatrelvir with ONE 100 mg tablet of ritonavir twice daily for 5 days; 1 packet; Refills: 0, Product Selection Permitted - dextromethorphan-guaifenesin 10-200 mg Oral capsule - take 2 capsule ORAL route every 6 hours PRN cough; 60 capsule; Refills: 0, sp4 Product Selection Permitted - Ibuprofen 600 mg Oral Tablet - take 1 tablet ORAL route every 6 hours As needed take with food; 30 tablet; sp4 Refills: 0, Product Selection Permitted - promethazine 25 mg Oral tablet - take 1 tablet ORAL route every 6 hours As needed PRN nausea; 30 tablet; sp4 Refills: 0, Product Selection Permitted Signatures: Dispatcher [employer] ED Dominic Lidia, [employer]-C [employer]-All Xie MD MD sp4 Irasema Garcia RN RN nw1 Corrections: (The following items were deleted from the chart) 01:32 01:31 Constitutional: This is a well developed, well nourished patient who is awake, kb alert, and in no acute distress. Head/Face: Normocephalic, atraumatic. ENT: Moist Mucous membranes Cardiovascular: Regular rate Respiratory: Respirations even and unlabored. No increased work of breathing. Talking in full sentences Abdomen/GI: Soft, non-tender. No distention Skin: Warm, dry with normal turgor. Normal color. MS/ Extremity: Pulses equal, no cyanosis. Neurovascular intact. Full, normal range of motion. Neuro: Awake and alert, GCS 15, oriented to person, place, time, and situation. Moves all extremities. Normal gait. kb
--- NOTE | 2023-03-17 06:50 | ER ---
Nurse's Notes [facility] Name: Navjot Collins Age: 77 yrs Sex: Male : 1945 Arrival Date: 03/17/2023 Time: :23 Bed 14 Private MD: Diagnosis: Other specified viral diseases;Acute COVID-19, Presentation: 03/17 01:51 Chief complaint: EMS states: PT HAVING COLD LIKE SYMPTOMS SINCE THE AFTERNOON OF 03/16. nw1 STATES SORE THROAT OF TODAY. Coronavirus screen: Vaccine status: Patient reports receiving the 2nd dose of the covid vaccine. Client denies travel out of the [place] in the last 14 days. At this time, the client does not indicate any symptoms associated with coronavirus-19. Ebola Screen: Patient negative for fever greater than or equal to 101.5 degrees Fahrenheit, and additional compatible Ebola Virus Disease symptoms Patient denies exposure to infectious person. Patient denies travel to an Ebola-affected area in the 21 days before illness onset. No symptoms or risks identified at this time. Initial Sepsis Screen: Does the patient meet any 2 criteria? No. Patient's initial sepsis screen is negative. Does the patient have a suspected source of infection? No. Patient's initial sepsis screen is negative. Risk Assessment: Do you want to hurt yourself or someone else? Patient reports no desire to harm self or others. Onset of symptoms was March 16, 2023. 01:51 Method Of Arrival: EMS: [facility] nw1 01:51 Acuity: ZENAIDA 4 nw1 Triage Assessment: 01:53 General: Appears in no apparent distress. comfortable, slender, Behavior is calm, nw1 cooperative, appropriate for age. Pain: Denies pain. Cardiovascular: No deficits noted. Denies chest pain, diaphoresis, fatigue, lightheadedness, nausea, palpitations, shortness of breath, syncope, vomiting. Respiratory: Reports cough that is non-productive. GI: No deficits noted. No signs and/or symptoms were reported involving the gastrointestinal system. Abdomen is Bowel sounds present X 4 quads. : No deficits noted. No signs and/or symptoms were reported regarding the genitourinary system. Musculoskeletal: No deficits noted. No signs and/or symptoms reported regarding the musculoskeletal system. Historical: - Allergies: 01:53 Codeine; nw1 01:53 Demerol; nw 01:53 fedrazil; nw 01:53 Vicodin; nw - PMHx: 01:53 Atrial Fib; CAD; CHF; Diabetes - IDDM; HTN; PROSTATE CA; nw - PSHx: 01:53 Amputated below knee; Coronary artery bypass graft; Stented artery; nw1 - Immunization history:: Adult Immunizations up to date, Client reports receiving the 2nd dose of the Covid vaccine, Last tetanus immunization: up to date Pneumococcal vaccine is up to date, Flu vaccine is up to date. Meningococcal vaccine is up to date. - Social history:: Smoking status: Patient denies any tobacco usage or history of. Patient/guardian denies using alcohol, street drugs, IV drugs, caffeine, over the counter diet medications, tobacco products. Screenin:02 [facility] ED Fall Risk Assessment (Adult) History of falling in the last 3 months, nw1 including since admission No falls in past 3 months (0 pts) Confusion or Disorientation No (0 pts) Intoxicated or Sedated No (0 pts) Impaired Gait Yes (1 pt) Mobility Assist Device Used No (0 pt) Altered Elimination No (0 pt) Score/Fall Risk Level 0 - 2 = Low Risk Oriented to surroundings, Maintained a safe environment, Educated pt \T\ family on fall prevention, incl call for assistance when getting out of bed, Assessed \T\ reinforced patient's understanding of fall precautions, Provided non-skid footwear, Hourly rounding (assess needs \T\ fall precautionary measures) done. Abuse screen: Denies threats or abuse. Denies injuries from another. Nutritional screening: No deficits noted. Tuberculosis screening: No symptoms or risk factors identified. Assessment: 01:55 Reassessment: PT STATES COUGH AND COLD LIKE SYMPTOMS SINCE THE AFTERNOON OF 03/16 WITH nw1 NO RELIEF. PT NOTED WITHOUT ACUTE DISTRESS/DISCOMFORT. CALL LIGHT AT BEDSIDE. PT NOTED WITH CHEERFUL DEMEANOR. Vital Signs: 01:51 BP 128 / 81; Pulse 68; Resp 15; Temp 98.9; Pulse Ox 97% on R/A; Weight 88.45 kg; Height nw1 6 ft. 1 in. ; 04:00 BP 118 / 57; Pulse 85; Resp 17; Pulse Ox 96% ; nw1 05:00 BP 120 / 63; Pulse 68; Resp 15; Pulse Ox 97% ; nw1 01:51 Body Mass Index 25.73 (88.45 kg, 185.42 cm) nw1 Gerda Coma Score: 01:55 Eye Response: spontaneous(4). Motor Response: obeys commands(6). Verbal Response: nw1 oriented(5). Total: 15. ED Course: 01:29 Patient arrived in ED. kb 01:29 All Wyatt MD is Attending Physician. sp4 01:30 L[facility] Alfaro [facility]C [facility] kb 01:44 Chest Single View XRAY In Process Unspecified. EDMS 01:51 Irasema Garcia RN is Primary Nurse. nw1 01:53 Triage completed. nw1 01:53 Arm band placed on right wrist. nw1 03:18 Strep Sent. nw1 03:18 Throat Culture Sent. nw1 07:02 Patient has correct armband on for positive identification. Placed in gown. Bed in low nw1 position. Call light in reach. Side rails up X2. Provided Education on: POC. 07:02 No provider procedures requiring assistance completed. Patient did not have IV access nw1 during this emergency room visit. Administered Medications: 03:38 Drug: Dextromethorphan-Guaifenesin PO Liquid 10 mg-100 mg/5 mL 10 ml PO once Route: PO; nw1 03:38 Drug: Ibuprofen PO 800 mg PO once Route: PO; nw1 03:38 Drug: Ondansetron PO 8 mg PO once Route: PO; nw1 03:38 Drug: Acetaminophen PO 1000 mg PO once Route: PO; nw1 05:06 Drug: Promethazine PO 25 mg PO once Route: PO; nw1 Medication: 07:03 VIS not applicable for this client. nw1 Outcome: 06:49 Discharge ordered by . sp4 06:54 Discharged to home ambulatory, nw1 06:54 Condition: stable 07:01 Discharge instructions given to patient, Instructed on discharge instructions, follow nw1 up and referral plans. medication usage, Demonstrated understanding of instructions, follow-up care, medications, Prescriptions given X 4, 07:03 Patient left the ED. nw1 Signatures: Dispatcher [employer] EDMS Lidia Alfaro FNP-C FNP-CkAll Bedolla MD MD sp4 Irasema Garcia, RN RN nw1
[2023-03-17 08:20] VITALS: BP 120/63; TEMP 98.9; O2SAT 97
--- NOTE | 2023-03-17 15:34 | RAD REPORT ---
EXAM DESCRIPTION: RAD - Chest Single View - 03/17/2023 1:42 am CLINICAL HISTORY: Cough; Congestion TECHNIQUE: Frontal view of the chest. COMPARISON: No relevant prior studies available. FINDINGS: Lungs: Coarsened interstitial markings. No focal consolidation. Pleural space: Unremarkable. No pneumothorax. Heart: The cardiac silhouette is enlarged, in part accentuated by portable technique. Prior CABG. Mediastinum: Unremarkable. Normal mediastinal contour. Bones/joints: Prior median sternotomy. Multilevel spondylosis. No acute fracture. Upper abdomen: Elevation of the right hemidiaphragm. IMPRESSION: No acute disease. Electronically signed by: Erich Remy MD 03/17/2023 02:00 AM HE[employer] INSPECTOR [employer] Due to temporary technical issues with the PACS/Fluency reporting system, reports are being signed by the in house radiologists without review as a courtesy to insure prompt reporting. The interpreting radiologist is fully responsible for the content of the report.
== END ==
LOC: ER 01:23
DX: U07.1 COVID-19 (principal); B33.8 Other specified viral diseases; I10 Essential (primary) hypertension; Z95.1 Presence of aortocoronary bypass graft; Z88.5 Allergy status to narcotic agent; Z88.8 Allergy status to other drugs, medicaments and biological substances
CPT/HCPCS: 87070; 36415; 87081; 87807; 87804 ×2; 71045; 99284; 87811; Q0169; Q0162

== ENCOUNTER 2023-03-23 06:17 | Observation (INO) | payer BC, OTHER ==
[2023-03-23 07:02] LABS: Hematocrit 37.2 % (39.6-49.0); Lymphocytes % 18.4 % (15.3-44.8); MCV 85.4 fL (80-100); MPV 7.4 fL (7.6-11.3); Platelets 224 thou/uL (152-406); RBC Red Blood Cell Count 4.36 M/uL (4.33-5.43)
[2023-03-23 07:21] LABS: Albumin 3.2 g/dL (3.4-5.0); Bilirubin Total 0.5 mg/dL (0.2-1.0); Protein, Total 7.3 g/dL (6.4-8.2); Troponin High Sensitivity 47.6 pg/mL (<58.9)
[2023-03-23 07:23] LABS: Potassium 6.2 mEq/L (3.5-5.1)
[2023-03-23] MEDS ORDERED: ONDANSETRON 4 MG/2 ML VIAL ONE (07:35)
--- NOTE | 2023-03-23 08:15 | EDPHYS ---
Physician Documentation [facility] Name: Navjot Collins Age: 77 yrs Sex: Male : 1945 Arrival Date: 03/23/2023 Time: 06:17 Bed 5 Private MD: ED Physician Caleb Locke HPI: 03/23 06:38 This 77 yrs old Male presents to ER via EMS with complaints of sob. ec2 06:38 Patient is known COVID-positive arrives today due to concern for progressive shortness ec2 of breath. Patient reports that he recently tested positive for COVID, is having persistent symptoms. Patient describes orthopnea, difficulty with sleeping and breathing. Patient reports persistent cough, no fevers or chills, does report generalized weakness and fatigue.. Historical: - Allergies: 06:38 Codeine; pf1 06:38 Demerol; pf1 06:38 fedrazil; pf1 06:38 Vicodin; pf1 - PMHx: 06:38 Atrial Fib; CAD; CHF; Diabetes - IDDM; PROSTATE CA; HTN; pf1 - PSHx: 06:38 Amputated below knee; Coronary artery bypass graft; Stented artery; pf1 06:38 prostate; bladder; pf1 - Immunization history:: Adult Immunizations up to date, Client reports receiving the 2nd dose of the Covid vaccine, pfizer Last tetanus immunization: < 5 years ago Flu vaccine is up to date. - Social history:: Smoking status: Patient denies any tobacco usage or history of. Patient/guardian denies using alcohol, street drugs. ROS: 06:38 Constitutional: as per hpi ec2 Exam: 06:38 Constitutional: GEN: NAD Head: atraumatic Eyes: EOMI Ears: External ears are ec2 normal. CV: regular rate LUNGS: no respiratory distress, no wheezes, no rales, no rhonchi ABD: non-distended SKIN: no evidence of rashes MSK: no evidence of trauma NEURO: moves all extremities equally Vital Signs: 06:34 BP 108 / 61; Pulse 56; Resp 20; Temp 98; Pulse Ox 100% on R/A; Weight 89.5 kg; Height 6 pf1 ft. 1 in. ; Pain 0/10; 06:56 BP 128 / 74; Pulse 66; Resp 20; Pulse Ox 98% ; vc1 08:51 BP 115 / 75; Pulse 58; Resp 15; Pulse Ox 100% ; jl7 06:34 Body Mass Index 26.03 (89.50 kg, 185.42 cm) pf1 06:34 Pain Scale: Adult pf1 MDM: 06:34 Patient medically screened. ec2 06:38 Data reviewed: vital signs. ED course: Patient arrives today for evaluation of ec2 progressive shortness of breath. Examination remarkable for nontoxic individual is in no acute distress with complaints of orthopnea as well as shortness of breath. Will obtain lab work EKG, CT scan to further assess. Currently considering process such as PE, ACS, volume overload.. 07:00 Transition of care: After a detail discussion of the patient's case, care is ec2 transferred to Caleb Locke MD. 08:13 Differential diagnosis: Anemia CHF exacerbation, pneumonia, Pneumothorax pulmonary rn edema. Antibiotic administration: Not indicated, Is a viral source. Counseling: I had a detailed discussion with the patient and/or guardian regarding the historical points, exam findings, and any diagnostic results supporting the discharge/admit diagnosis, lab results, radiology results, the need for further work-up and treatment in the hospital. ED course: Patient with severe orthopnea, not sleeping, not adhering to fluid restriction and also not taking Bumex recently. Will admit for diuresis and further management. Primary problem seems congestive heart failure due to noncompliance with COVID on top of it.. 03/23 06:38 Order name: CBC with Diff; Complete Time: 07:26 ec2 03/23 06:38 Order name: NT PRO-BNP; Complete Time: 07:26 ec2 03/23 06:38 Order name: Troponin HS; Complete Time: 07:26 ec2 03/23 06:38 Order name: CMP; Complete Time: 07:26 ec2 03/23 08:44 Order name: Basic Metabolic Panel EDMS 03/23 08:44 Order name: Basic Metabolic Panel EDMS 03/23 08:44 Order name: Basic Metabolic Panel EDMS 03/23 08:44 Order name: Basic Metabolic Panel EDMS 03/23 08:44 Order name: Basic Metabolic Panel EDMS 03/23 08:44 Order name: CBC with Automated Diff EDMS 03/23 08:44 Order name: CBC with Automated Diff EDMS 03/23 08:44 Order name: CBC with Automated Diff EDMS 03/23 08:44 Order name: CBC with Automated Diff EDMS 03/23 08:44 Order name: CBC with Automated Diff EDMS 03/23 08:44 Order name: Magnesium EDMS 03/23 08:44 Order name: Magnesium EDMS 03/23 08:44 Order name: Magnesium EDMS 03/23 08:44 Order name: Magnesium EDMS 03/23 08:44 Order name: Magnesium EDMS 03/23 08:44 Order name: NT PRO-BNP EDMS 03/23 08:44 Order name: NT PRO-BNP EDMS 03/23 08:44 Order name: NT PRO-BNP EDMS 03/23 08:44 Order name: NT PRO-BNP EDMS 03/23 08:44 Order name: NT PRO-BNP EDMS 03/23 11:07 Order name: Glucose, Ancillary Testing EDMS 03/23 17:03 Order name: Glucose, Ancillary Testing EDMS 03/23 06:38 Order name: XRAY Chest (1 view); Complete Time: 08:52 ec2 03/23 06:38 Order name: EKG; Complete Time: 06:39 ec2 03/23 08:41 Order name: CONS Physician Consult EDMS 03/23 06:38 Order name: Cardiac monitoring; Complete Time: 07:14 ec2 03/23 06:38 Order name: EKG - Nurse/Tech; Complete Time: 07:24 ec2 03/23 06:38 Order name: IV Saline Lock; Complete Time: 07:24 ec2 03/23 06:38 Order name: Labs collected and sent; Complete Time: 07:24 ec2 03/23 06:38 Order name: O2 Per Protocol; Complete Time: 06:42 ec2 03/23 06:38 Order name: O2 Sat Monitoring; Complete Time: 06:42 ec2 Administered Medications: 07:42 Drug: Ondansetron IVP 4 mg IVP once; over 2 minutes Route: IVP; Site: right antecubital;ko1 09:00 Drug: Furosemide IVP 40 mg IVP once; give over 2 minutes Route: IVP; Site: right jl7 antecubital; 09:00 Drug: Kayexalate PO 15 grams PO once Route: PO; jl7 09:22 Drug: Insulin Regular Human IVP 5 units IVP once {Co-Signature: ko1 (Kyleigh Moe RN).} Route: IVP; Site: right antecubital; Disposition Summary: 03/23/23 08:15 Hospitalization Ordered Notes: Hospitalization Status: Inpatient Admission rn Condition: Stable rn Problem: new rn Symptoms: are unchanged rn Bed/Room Type: Standard rn Provider: Chelsey Yañez(03/23/23 08:40) rn Location: Telemetry/MedSurg (Inpatient)(03/23/23 16:12) eb Room Assignment: 403(03/23/23 16:12) eb Diagnosis - Unspecified combined systolic (congestive) and diastolic (congestive) heart failure rn - SARS-associated coronavirus as the cause of diseases classified elsewhere rn - Dyspnea, unspecified rn Forms: - Medication Reconciliation Form rn - SBAR form rn - Leadership Thank You Letter rn Signatures: Dispatcher [employer] EDWA Caleb Locke MD MD rn Leal, Jahala RN RN jl7 Rosalind Herrera Kathy, RN RN ko1 Riddhi Persaud RN RN pf1 Yan Asher MD MD ec2 Kyleigh Moe RN ko1 Corrections: (The following items were deleted from the chart) 07:42 06:39 Chest For PE Angio+CT.RAD.BRZ ordered. [facility] EDWA 08:40 08:15 Elijah Brunson rn rn 09:47 08:15 Telemetry/MedSurg (Inpatient) rn eb 09:47 08:15 rn eb 16:12 09:47 BR ER HOLD eb eb 16:12 09:47 ERHOLD- eb eb
--- NOTE | 2023-03-23 08:15 | ER ---
Nurse's Notes [facility] Name: Navjot Collins Age: 77 yrs Sex: Male : 1945 Arrival Date: 03/23/2023 Time: 06:17 Bed 5 Private MD: Diagnosis: Unspecified combined systolic (congestive) and diastolic (congestive) heart failure;SARS-associated coronavirus as the cause of diseases classified elsewhere;Dyspnea, unspecified Presentation: 03/23 06:34 Chief complaint: Patient states: intermittent SOB with cough,onset 1 week. Patient pf1 stated was diagnosed here on 03/17/23 for Covid-19. Coronavirus screen: Vaccine status: Patient reports receiving the 2nd dose of the covid vaccine. Client denies travel out of the [place] in the last 14 days. Client presents with at least one sign or symptom that may indicate coronavirus-19. Ebola Screen: Patient negative for fever greater than or equal to 101.5 degrees Fahrenheit, and additional compatible Ebola Virus Disease symptoms. Initial Sepsis Screen: Does the patient meet any 2 criteria? No. Patient's initial sepsis screen is negative. Does the patient have a suspected source of infection? No. Patient's initial sepsis screen is negative. Risk Assessment: Do you want to hurt yourself or someone else? Patient reports no desire to harm self or others. 06:34 Method Of Arrival: EMS: [facility] pf1 06:34 Acuity: ZENAIDA 3 pf1 06:44 Onset of symptoms was March 17, 2023. lg3 Historical: - Allergies: 06:38 Codeine; pf1 06:38 Demerol; pf1 06:38 fedrazil; pf1 06:38 Vicodin; pf1 - PMHx: 06:38 Atrial Fib; CAD; CHF; Diabetes - IDDM; PROSTATE CA; HTN; pf1 - PSHx: 06:38 Amputated below knee; Coronary artery bypass graft; Stented artery; pf1 06:38 prostate; bladder; pf1 - Immunization history:: Adult Immunizations up to date, Client reports receiving the 2nd dose of the Covid vaccine, pfizer Last tetanus immunization: < 5 years ago Flu vaccine is up to date. - Social history:: Smoking status: Patient denies any tobacco usage or history of. Patient/guardian denies using alcohol, street drugs. Screenin:41 [facility] ED Fall Risk Assessment (Adult) History of falling in the last 3 months, pf1 including since admission No falls in past 3 months (0 pts) Confusion or Disorientation No (0 pts) Intoxicated or Sedated No (0 pts) Impaired Gait Yes (1 pt) Mobility Assist Device Used Yes (1 pt) Altered Elimination No (0 pt) Score/Fall Risk Level 0 - 2 = Low Risk Oriented to surroundings, Maintained a safe environment, Educated pt \T\ family on fall prevention, incl call for assistance when getting out of bed, Assessed \T\ reinforced patient's understanding of fall precautions, Provided non-skid footwear, Hourly rounding (assess needs \T\ fall precautionary measures) done, Used ambulatory aids as needed (educated on \T\ assisted with), Used gait belt as appropriate. Abuse screen: Denies threats or abuse. Nutritional screening: No deficits noted. Tuberculosis screening: No symptoms or risk factors identified. Assessment: 06:35 General: Appears in no apparent distress. comfortable, well groomed, well developed, pf1 Behavior is calm, cooperative, appropriate for age, quiet. 06:35 Pain: Denies pain. Neuro: No deficits noted. Level of Consciousness is awake, alert, pf1 obeys commands, Oriented to person, place, time, situation. Cardiovascular: Reports shortness of breath, Capillary refill < 3 seconds Patient's skin is warm and dry. Respiratory: Reports shortness of breath worse when laying down to sleep cough that is Airway is patent Respiratory effort is even, unlabored, Respiratory pattern is regular, symmetrical. GI: No deficits noted. No signs and/or symptoms were reported involving the gastrointestinal system. : No deficits noted. No signs and/or symptoms were reported regarding the genitourinary system. EENT: No deficits noted. No signs and/or symptoms were reported regarding the EENT system. Derm: No deficits noted. No signs and/or symptoms reported regarding the dermatologic system. Musculoskeletal: Amputation of left leg. Circulation, motion, and sensation intact. Capillary refill < 3 seconds, Range of motion:. Vital Signs: 06:34 BP 108 / 61; Pulse 56; Resp 20; Temp 98; Pulse Ox 100% on R/A; Weight 89.5 kg; Height 6 pf1 ft. 1 in. ; Pain 0/10; 06:56 BP 128 / 74; Pulse 66; Resp 20; Pulse Ox 98% ; vc1 08:51 BP 115 / 75; Pulse 58; Resp 15; Pulse Ox 100% ; jl7 06:34 Body Mass Index 26.03 (89.50 kg, 185.42 cm) pf1 06:34 Pain Scale: Adult pf1 ED Course: 06:32 Patient arrived in ED. vc1 06:34 Yan Asher MD is Attending Physician. ec2 06:37 Triage completed. pf1 06:40 Shauna Cao, RN is Primary Nurse. vc1 06:41 No provider procedures requiring assistance completed. pf1 06:45 Patient has correct armband on for positive identification. Placed in gown. Bed in low lg3 position. Call light in reach. Side rails up X 1. Client placed on continuous cardiac and pulse oximetry monitoring. NIBP monitoring applied. welder repair on. Door closed. Noise minimized. Warm blanket given. 06:55 Arm band placed on right wrist. vc1 07:03 Attending Physician role handed off by Yan Asher MD rn 07:03 Caleb Locke MD is Attending Physician. rn 07:23 XRAY Chest (1 view) In Process Unspecified. EDMS 07:23 Notified ED physician of a critical lab result(s). K+ 6.2. ll1 08:01 Primary Nurse role handed off by Shauna Cao RN ko1 08:01 Kyleigh Moe, RN is Primary Nurse. ko1 08:14 Elijah Brunson is Hospitalizing Provider. rn 08:40 Chelsey Yañez MD is Hospitalizing Provider. rn 16:59 Patient admitted, IV remains in place. ko1 16:59 Provided Education on: na. ko1 Administered Medications: 07:42 Drug: Ondansetron IVP 4 mg IVP once; over 2 minutes Route: IVP; Site: right antecubital;ko1 09:00 Drug: Furosemide IVP 40 mg IVP once; give over 2 minutes Route: IVP; Site: right jl7 antecubital; 09:00 Drug: Kayexalate PO 15 grams PO once Route: PO; jl7 09:22 Drug: Insulin Regular Human IVP 5 units IVP once {Co-Signature: ko1 (Kyleigh Moe RN).} Route: IVP; Site: right antecubital; Medication: 16:59 VIS not applicable for this client. koWilbert Outcome: 08:15 Decision to Hospitalize by Provider. rn 16:59 Admitted to Tele accompanied by tech, room 403, with chart, Report called to JUDE Da Silva 16:59 Condition: improved 16:59 Instructed on the need for admit, 17:15 Patient left the ED. koWilbert Signatures: Dispatcher [employer] EDCaleb Vargas MD MD rn Leal, Jahala RN RN jl7 Misty Patel RN RN lg3 Malena Tovar RN RN ll1 Shauna Cao RN RN vc1 Kyleigh Moe, JUDE RN ko1 Riddhi Persaud RN RN pf1 Yan Asher MD MD ec2 Kyleigh Moe RN
--- NOTE | 2023-03-23 08:35 | P.HP ---
Certification for Inpatient Patient admitted to: Inpatient With expected LOS: <2 Midnights Patient will require the following post-hospital care: None Practitioner: I am a practitioner with admitting privileges, knowledge of patient current condition, hospital course, and medical plan of care. Services: Services provided to patient in accordance with Admission requirements found in Title 42 Section 412.3 of the Code of Federal Regulations <Adri Coffey - Last Filed: 03/23/23 08:55> Patient History Date of Service: 03/23/23 History of Present Illness: 77 year old male with past medical history of 8 Atrial Fib; CAD; CHF; Diabetes - IDDM; PROSTATE CA; HTN presents to with shortness of breath, he reports tesing positive for Covid. Reports orthopnea, difficulty with sleeping and breathing, cough, He denies fever, chest pain, abdominal pain, NVD. Denies y tobacco usage or history of. Patient/guardian denies using alcohol, street drugs. Plan to admit for - Unspecified combined systolic (congestive) and diastolic (congestive) heart failure, - SARS-associated coronavirus as the cause of diseases classified elsewhere, Dyspnea, unspecified Lab evaluation No leukocytosis, no left shift, elevated potassium 6.2 elevated BNP 48088, acute on chronic kidney injury BUN 35 creatinine 1.75, elevated glucose 328, positive for COVID, chest x-ray pending report - Past Medical/Surgical History Diabetic: Yes -: Diabetes mellitus type 2 -: hypertention -: CAD -: chronic systolic CHF -: Atrial fibrillation on chronic anticoagulation -: Prostate cancer -: carotid stent -: CABG [id number] -: BKA left leg -: Prostate surgery -: bladder surgery -: skin graft Psychosocial/ Personal History: Patient lives at home with his family - Family History Father -: Heart disease Mother -: Lung disease Notes: COPD, leaking heart valve, emphysema - Social History Alcohol use: No CD- Drugs: No Caffeine use: No <Adri Coffey - Last Filed: 03/23/23 08:55> Date of Service: 03/23/23 <Chelsey Yañez - Last Filed: 03/23/23 16:14> Allergies acetaminophen [From Vicodin] Adverse Reaction (Verified 02/08/20 05:56) Nausea/Vomiting codeine Adverse Reaction (Verified 02/08/20 05:56) Nausea/Vomiting hydrocodone bitartrate [From Vicodin] Adverse Reaction (Verified 02/08/20 05:56) Nausea/Vomiting Home Medications: Insulin Degludec [Tresiba Flextouch U-200] 40 units SQ BEDTIME 04/14/18 Liothyronine [Cytomel*] 1 tab PO DAILY 04/14/18 Tamsulosin HCl 0.4 mg PO BEDTIME 04/14/18 Sotalol HCl [Betapace*] 80 mg PO BID 6AM 6PM #60 tab 05/28/19 glipiZIDE [Glipizide ER] 10 mg PO BID 02/08/20 Dapagliflozin Propanediol [Farxiga] 5 mg PO DAILY 03/28/21 Losartan Potassium 25 mg PO DAILY 03/28/21 Rivaroxaban [Xarelto] 20 mg PO BEDTIME 03/28/21 Rosuvastatin Calcium [Crestor] 20 mg PO DAILY 03/28/21 Famotidine 20 mg PO DAILY 01/28/23 Finasteride 5 mg PO DAILY 01/28/23 Magnesium Oxide [Magnesium] 500 mg PO BID 01/28/23 Oseltamivir Phosphate [Tamiflu] 75 mg PO BID 01/28/23 Zinc Gluconate [Zinc] 30 mg PO DAILY 01/28/23 Liothyronine Sodium [Cytomel] 25 mcg PO ACB 30 Days #30 tab 01/30/23 Review of Systems per HPI <Adri Coffey - Last Filed: 03/23/23 08:55> Physical Examination - Studies Laboratory Data (last 24 hrs) 03/23/23 03/23/23 06:50 06:50 WBC 5.60 Hgb 11.9 L Hct 37.2 L Plt Count 224 Sodium 134 L Potassium 6.2 H* BUN 35 H Creatinine 1.75 H Glucose 328 H Total Bilirubin 0.5 AST 16 ALT 26 Alkaline Phosphatase 90 <Adri Coffey - Last Filed: 03/23/23 08:55> - Studies Laboratory Data (last 24 hrs) 03/23/23 03/23/23 06:50 06:50 WBC 5.60 Hgb 11.9 L Hct 37.2 L Plt Count 224 Sodium 134 L Potassium 6.2 H* BUN 35 H Creatinine 1.75 H Glucose 328 H Total Bilirubin 0.5 AST 16 ALT 26 Alkaline Phosphatase 90 <Jayleen Yañezukeugenieshorty Dm - Last Filed: 03/23/23 16:14> Assessment and Plan - Plan Assessment plan Acute hypoxic respiratory failure secondary to decompensated diastolic heart failure versus COVID positive shortness of breath, he reports tesing positive for Covid. Reports orthopnea, difficulty with sleeping and breathing, cough, Diuresis, telemetry, O2 keep sats greater than 92% Trend BMP troponin No leukocytosis, no left shift,elevated BNP 46062-> ECHO 01-29-23 1. MODERATELY DEPRESSED LEFT VENTRICULAR EJECTION FRACTION 30-35% 2. MODERATE GLOBAL HYPOKINESIS 3. MILD MITRAL REGURGITATION, TRICUSPID REGURGITATION, PULMONIC INSUFFICIENCY 4. MODERATE AORTIC INSUFFICIENCY 5. MODERATE DIASTOLIC DYCFUNCTION Acute on chronic kidney likely secondary to prerenal congestive heart failure hyperkalemia elevated potassium 6.2 BUN 35 creatinine 1.75, Nephrology consult, trend BMP Trend electrolytes replace as needed history of Atrial Fib CAD CHF Resume appropriate home medications Diabetes - IDDM Accu-Cheks, sliding scale insulin, glucose 328 Resume home insulin PROSTATE CA Full code DVT heparin Diet renal Discharge Plan: Home - Advance Directives Does patient have a Living Will: No Does patient have a Durable POA for Healthcare: No - Code Status/Comfort Care Code Status Assessed: Yes Code Status: Full Code Critical Care: No Time Spent Managing Pts Care (In Minutes): 55 <Adri Coffey - Last Filed: 03/23/23 08:55> - Plan Pt seen and examined. I agree with the note by the SUPERVISOR [employer]. Pt is a 77yo male with past medical history of Atrial Fib; CAD; CHF; Diabetes, prostate cancer and Htn who presents with SOB. Pt was not compliant with bumex 1mg po BID at home. On admission, lab studies K 6.2, NA 134, Cr 1.75 and glucose 328. At bedside ,pt is in NAD. he has contracture on left fingers. A/P: Acute on chronic combined Sys and diastolic heart failure exacerbation. Last Echo in Nov 2022 showed EF 30 - 35% with diastolic dysfunction[place] [address]. Continue lasix 40mg iv daily, strict I/O and daily weight. Acute resp failure with hypoxia: Due to CHF exacerbation. Will continue diuretic, prn duoneb and oxygen Hyperkalemia: Likely due to [place]. Will give lokelma and monitor FR[place]: Likely prerenal. Will avoid nephrotoxins and monitor renal function. DM II: continue accuchek, SSI and ADA diet. Code: full <Chelsey Yañez - Last Filed: 03/23/23 16:14>
[2023-03-23] MEDS ORDERED: ACETAMINOPHEN 500 MG TAB PO PRN (08:40)
[2023-03-23] MEDS ORDERED: FUROSEMIDE 40 MG/4 ML VIAL IV ONE ×2 (08:46→13:34)
--- NOTE | 2023-03-23 08:51 | RAD REPORT ---
EXAM DESCRIPTION: Marisol Single View03/23/2023 7:21 am CLINICAL HISTORY: Shortness of breath COMPARISON: March 17, 2023 FINDINGS: Mild bilateral pulmonary opacities Heart is moderately enlarged. Postsurgical changes involve the chest IMPRESSION: Mild bilateral pulmonary opacities may indicate mild pulmonary edema
[2023-03-23] MEDS ORDERED: SOD POLYSTYREN SUL 15 GM/60 ML UCUP ONE (08:55)
[2023-03-23] MEDS ORDERED: FUROSEMIDE 40 MG/4 ML VIAL ONE ×2 (08:56→14:04)
[2023-03-23] MEDS ORDERED: D10W 250 ML BAG IV PRN (08:56)
[2023-03-23] MEDS ORDERED: GLUCAGON 1 MG/VIAL IM PRN ×2 (08:56→16:21)
[2023-03-23 10:08] VITALS: BMI 25.8
--- NOTE | 2023-03-23 10:12 | P.CNS ---
Date of Consult: 03/23/23 Reason for Consult: FR[place]/ CKD Requesting Physician: Maris Chao Chief Complaint: Dyspnea History of Present Illness: 77 year old male with past medical history of 8 Atrial Fib; CAD; CHF; Diabetes - IDDM; PROSTATE CA; HTN presents to with shortness of breath, he reports tesing positive for Covid. Reports orthopnea, difficulty with sleeping and breathing, cough, He denies fever, chest pain, abdominal pain, NVD. Denies y tobacco usage or history of. Patient/guardian denies using alcohol, street drugs. Plan to admit for - Unspecified combined systolic (congestive) and diastolic (congestive) heart failure, - SARS-associated coronavirus as the cause of diseases classified elsewhere, Dyspnea, unspecified Lab evaluation No leukocytosis, no left shift, elevated potassium 6.2 elevated BNP 97767, acute on chronic kidney injury BUN 35 creatinine 1.75, elevated glucose 328, positive for COVID, chest x-ray pending report darrenrice 06:38 This 77 yrs old Male presents to ER via EMS with complaints of sob. ec2 06:38 Patient is known COVID-positive arrives today due to concern for progressive shortness ec2 of breath. Patient reports that he recently tested positive for COVID, is having persistent symptoms. Patient describes orthopnea, difficulty with sleeping and breathing. Patient reports persistent cough, no fevers or chills, does report generalized weakness and fatigue.. He is feeling better. Reports that he is hungry. Allergies acetaminophen [From Vicodin] Adverse Reaction (Verified 02/08/20 05:56) Nausea/Vomiting codeine Adverse Reaction (Verified 02/08/20 05:56) Nausea/Vomiting hydrocodone bitartrate [From Vicodin] Adverse Reaction (Verified 02/08/20 05:56) Nausea/Vomiting Home medications list reviewed: Yes Home Medications: Insulin Degludec [Tresiba Flextouch U-200] 40 units SQ BEDTIME 04/14/18 Liothyronine [Cytomel*] 1 tab PO DAILY 04/14/18 Tamsulosin HCl 0.4 mg PO BEDTIME 04/14/18 Sotalol HCl [Betapace*] 80 mg PO BID 6AM 6PM #60 tab 05/28/19 glipiZIDE [Glipizide ER] 10 mg PO BID 02/08/20 Dapagliflozin Propanediol [Farxiga] 5 mg PO DAILY 03/28/21 Losartan Potassium 25 mg PO DAILY 03/28/21 Rivaroxaban [Xarelto] 20 mg PO BEDTIME 03/28/21 Rosuvastatin Calcium [Crestor] 20 mg PO DAILY 03/28/21 Famotidine 20 mg PO DAILY 01/28/23 Finasteride 5 mg PO DAILY 01/28/23 Magnesium Oxide [Magnesium] 500 mg PO BID 01/28/23 Oseltamivir Phosphate [Tamiflu] 75 mg PO BID 01/28/23 Zinc Gluconate [Zinc] 30 mg PO DAILY 01/28/23 Liothyronine Sodium [Cytomel] 25 mcg PO ACB 30 Days #30 tab 01/30/23 - Past Medical/Surgical History Diabetic: Yes -: DM II -: HTN -: CKD III (Dr. Márquez/ Dr. Aguilar) -: Systolic CHF -: CAD -: HLD -: Atrial fibrillation on chronic anticoagulation -: Enlarged Prostate with LUTS -: Prostate cancer -: carotid stent -: CABG 2016 -: BKA left leg -: Prostate surgery -: bladder surgery -: skin graft Psychosocial/ Personal History: Patient lives at home with his family - Family History Father Medical History: Heart disease Mother Medical History: Lung disease Notes: COPD, leaking heart valve, emphysema - Social History Smoking Status: Unknown if ever smoked Alcohol use: No CD- Drugs: No Caffeine use: No Review of Systems 10-point ROS is otherwise unremarkable Respiratory: SOB with Excertion Cardiovascular: Edema Physical Examination General: In no apparent distress, Oriented x3, Cooperative HEENT: Atraumatic Neck: Supple Respiratory: Clear to auscultation bilaterally Cardiovascular: Edema Gastrointestinal: Soft and benign, Non-distended Musculoskeletal: No clubbing, No contractures, Other (Left BKA) Integumentary: No rashes, No cyanosis Neurological: Normal speech Laboratory Data (last 24 hrs) 03/23/23 03/23/23 06:50 06:50 WBC 5.60 Hgb 11.9 L Hct 37.2 L Plt Count 224 Sodium 134 L Potassium 6.2 H* BUN 35 H Creatinine 1.75 H Glucose 328 H Total Bilirubin 0.5 AST 16 ALT 26 Alkaline Phosphatase 90 Imagings Data: darrenrice EXAM DESCRIPTION: RADChest Single View1/03/2023 7:21 am CLINICAL HISTORY: Shortness of breath COMPARISON: March 17, 2023 FINDINGS: Mild bilateral pulmonary opacities Heart is moderately enlarged. Postsurgical changes involve the chest IMPRESSION: Mild bilateral pulmonary opacities may indicate mild pulmonary edema [id number] LEFT VENTRICULAR WALL MOTION: MODERATE GLOBAL HYPOKINESIS DOPPLER/COLOR FLOW: SEE BELOW COMMENTS: 1. MODERATELY DEPRESSED LEFT VENTRICULAR EJECTION FRACTION 30-35% 2. MODERATE GLOBAL HYPOKINESIS 3. MILD MITRAL REGURGITATION, TRICUSPID REGURGITATION, PULMONIC INSUFFICIENCY 4. MODERATE AORTIC INSUFFICIENCY 5. MODERATE DIASTOLIC DYCFUNCTION Conclusions/Impression: Stage I FRANCE likely CRS CKD III -No NSAIDs -Continue furosemide Hyponatremia -Continue furosemide Hyperkalemia -Continue furosemide -Repeat BMP today -Hold Losartan -Lokelma prn HTN with CKD/ CHF -Hold Losartan at this time Systolic CHF -Low sodium diet -Daily weight -Lasix IV X1 now -Start torsemide daily DM II -RISS Anemia in chronic illness Hx iron deficiency -Monitor H&H BPH with LUTS -Restart tamsulosin Hospitalist and ER notes reviewed Thank you kindly for the consultation
[2023-03-23] MEDS: INSULIN REGULAR (HUMAN) 100 UNIT/ML SQ SCH ×3 (11:11→20:28)
[2023-03-23] MEDS: TAMSULOSIN 0.4 MG SR CAP PO SCH (13:56)
[2023-03-23] MEDS ORDERED: TAMSULOSIN 0.4 MG SR CAP ONE (14:04)
[2023-03-23] MEDS ORDERED: D50W 25 GM/50 ML SYRINGE IV PRN (16:21)
[2023-03-23] MEDS: INSULIN LISPRO 100 UNIT/ML SQ SCH (16:52)
[2023-03-23] MEDS ORDERED: INSULIN 70/30 100 UNITS/ML SQ ONE (16:55)
[2023-03-23] MEDS ORDERED: INSULIN REGULAR (HUMAN) 100 UNIT/ML ONE (16:55)
[2023-03-23 19:39] LABS: Potassium 4.4 mEq/L (3.5-5.1)
[2023-03-23] MEDS ORDERED: INSULIN GLARGINE 100 UNIT/ML SQ SCH (21:00)
[2023-03-24] MEDS ORDERED: BENZONATATE 100 MG CAP PO PRN (02:18)
[2023-03-24 06:34] LABS: Hematocrit 35.7 % (39.6-49.0); Lymphocytes % 14.6 % (15.3-44.8); MCV 84.1 fL (80-100); MPV 7.3 fL (7.6-11.3); Platelets 241 thou/uL (152-406); RBC Red Blood Cell Count 4.25 M/uL (4.33-5.43)
[2023-03-24 06:39] LABS: Magnesium 2.4 mg/dL (1.6-2.4); Potassium 4.5 mEq/L (3.5-5.1)
[2023-03-24] MEDS: INSULIN REGULAR (HUMAN) 100 UNIT/ML SQ SCH ×2 (07:30→12:11)
[2023-03-24] MEDS ORDERED: TORSEMIDE 20 MG TAB PO SCH (08:00)
[2023-03-24] MEDS: TAMSULOSIN 0.4 MG SR CAP PO SCH (08:28)
[2023-03-24] MEDS: INSULIN LISPRO 100 UNIT/ML SQ SCH ×2 (08:29→12:10)
[2023-03-24] MEDS ORDERED: FUROSEMIDE 40 MG/4 ML VIAL IV SCH (09:00)
[2023-03-24 10:27] VITALS: O2SAT 95
[2023-03-24 11:06] VITALS: BP 132/68; TEMP 98.2
--- NOTE | 2023-03-24 12:08 | P.DS ---
Admission Date: 03/23/23 Discharge Date: 03/24/23 Disposition: ROUTINE DISCHARGE Discharge Condition: GOOD Reason for Admission: Dyspnea Brief History of Present Illness: 77 year old male with past medical history of 8 Atrial Fib; CAD; CHF; Diabetes - IDDM; PROSTATE CA; HTN presents to with shortness of breath, he reports tesing positive for Covid. Reports orthopnea, difficulty with sleeping and breathing, cough, He denies fever, chest pain, abdominal pain, NVD. Plan to admit for - Unspecified combined systolic (congestive) and diastolic (congestive) heart failure, - SARS-associated coronavirus as the cause of diseases Lab evaluation No leukocytosis, no left shift, elevated potassium 6.2 elevated BNP 88862, acute on chronic kidney injury BUN 35 creatinine 1.75, elevated glucose 328, positive for COVID, chest x-ray IMPRESSION: Mild bilateral pulmonary opacities may indicate mild pulmonary edema Hospital Course: Pt is a 77 yo male with past medical history of Atrial Fib; CAD; CHF; Diabetes, PROSTATE CA, and HTN who presented with shortness of breath. On admission,lab studies showed leukocytosis, no left shift, elevated potassium 6.2 elevated BNP 78522, acute on chronic kidney injury BUN 35 creatinine 1.75, elevated glucose 328, positive for COVID, chest x-ray showed mild bilateral pulmonary opacities may indicate mild pulmonary edema. We admitted pt for CHF exacerbation and started torsemide. Pt was not very compliant with diuretic at home. He had good urine output with torsemide 20mg po daily. The acute resp failure due to CHF exacerbation, [place] and hyperkalemia resolved and pt requested to be discharged. He was advised to follow up with his PCP and surgical technologist within 1 week. Pt was in NAD prior to discharge. Vital Signs/Physical Exam: Temp Pulse Resp BP Pulse Ox 98.2 F 77 17 132/68 98 03/24/23 11:04 03/24/23 11:04 03/24/23 11:04 03/24/23 11:04 03/24/23 11:04 Laboratory Data at Discharge: WBC 7.10 thou/uL (4.3-10.9) 03/24/23 06:06 Hgb 11.8 g/dL (13.6-17.9) L 03/24/23 06:06 Hct 35.7 % (39.6-49.0) L 03/24/23 06:06 Plt Count 241 thou/uL (152-406) 03/24/23 06:06 Sodium 137 mEq/L (136-145) 03/24/23 06:06 Potassium 4.5 mEq/L (3.5-5.1) 03/24/23 06:06 BUN 36 mg/dL (7-18) H 03/24/23 06:06 Creatinine 1.39 mg/dL (0.70-1.30) H 03/24/23 06:06 Glucose 156 mg/dL (74-106) H 03/24/23 06:06 Magnesium 2.4 mg/dL (1.6-2.4) 03/24/23 06:06 Total Bilirubin 0.5 mg/dL (0.2-1.0) 03/23/23 06:50 AST 16 U/L (15-37) 03/23/23 06:50 ALT 26 U/L (16-61) 03/23/23 06:50 Alkaline Phosphatase 90 U/L (45-117) 03/23/23 06:50 Home Medications: Insulin Degludec [Tresiba Flextouch U-200] 40 units SQ BEDTIME 04/14/18 Liothyronine [Cytomel*] 1 tab PO DAILY 04/14/18 Tamsulosin HCl 0.4 mg PO BEDTIME 04/14/18 Sotalol HCl [Betapace*] 80 mg PO BID 6AM 6PM #60 tab 05/28/19 glipiZIDE [Glipizide ER] 10 mg PO BID 02/08/20 Dapagliflozin Propanediol [Farxiga] 5 mg PO DAILY 03/28/21 Losartan Potassium 25 mg PO DAILY 03/28/21 Rivaroxaban [Xarelto] 20 mg PO BEDTIME 03/28/21 Rosuvastatin Calcium [Crestor] 20 mg PO DAILY 03/28/21 Famotidine 20 mg PO DAILY 01/28/23 Finasteride 5 mg PO DAILY 01/28/23 Magnesium Oxide [Magnesium] 500 mg PO BID 01/28/23 Oseltamivir Phosphate [Tamiflu] 75 mg PO BID 01/28/23 Zinc Gluconate [Zinc] 30 mg PO DAILY 01/28/23 Liothyronine Sodium [Cytomel] 25 mcg PO ACB 30 Days #30 tab 01/30/23 Torsemide [Demadex*] 20 mg PO Q24H 60 Days #60 tab 03/24/23 New Medications: Torsemide [Demadex*] 20 mg PO Q24H 60 Days #60 tab Physician Discharge Instructions: Continue ad joao activity. Take torsemide 20mg po daily and other home meds. Stop taking Bumex. Follow up with PCP and Hand Polisher within 1 week Diet: AHA Activity: Ad joao Followup: Philip Pineda MD [ACTIVE - CAN ADMIT] -
--- NOTE | 2023-03-24 12:43 | PN ---
Date of Progress Note: 03/24/2023 Subjective: The patient was admitted to the hospital with acute kidney injury. The patient well kno wn to me from the office. The patient had congestive heart failure, diabetes, and hypertension. Physical Examination: General: When I saw the patient, the patient is sleeping. Vital Signs: Blood pressure 132/68, pulse of 77, afebrile. Chest: Clear to auscultation. Heart: S1 and S2 regular. Abdomen: Soft, nontender. Extremities: Left below-knee amputation plus edema on the right. Neurologic: Alert. No focality. Lab: Hemoglobin 11.8. Sodium 137, potassium 4.5, bicarb 27, BUN 36, creatinine 1.3, GFR 53. Calciu m 8.2, magnesium 2.4. BNP 15,000. Current Medications: Include Lasix, torsemide, and insulin. Home Medications: Include Farxiga, Macrobid, glipizide, atorvastatin, Flomax, Bumex, and Pepcid. Assessment And Plan: 1.Acute kidney injury secondary to cardiorenal with congestive heart failure exacerbation. Kidney f unction improving. I am going to continue diuresis with torsemide and we will follow up the patient. 2.Hypertension. Continue to utilize blood pressure for more diuresis. 3.Hyponatremia, dilutional. Continue diuresis. 4.CHF with exacerbation, as above. JOHNNY Voice ID: [id number] Report ID: [id number]
--- NOTE | 2023-03-24 20:25 | P.PN ---
Date of Service: 03/24/23 Vital Signs Temp Pulse Resp BP Pulse Ox 98.2 F 77 17 132/68 98 03/24/23 11:04 03/24/23 11:04 03/24/23 11:04 03/24/23 11:04 03/24/23 11:04 Assessment/ Plan: Nephrology No dyspnea No chest pain No acute events overnight Vitals, medications, blood work and imaging reviewed in the chart Physical Examination General: In no apparent distress, Oriented x3, Cooperative HEENT: Atraumatic Neck: Supple Respiratory: Clear to auscultation bilaterally Cardiovascular: Edema Gastrointestinal: Soft and benign, Non-distended Musculoskeletal: No clubbing, No contractures, Other (Left BKA) Integumentary: No rashes, No cyanosis Neurological: Normal speech Laboratory Data (last 24 hrs) 03/23/23 03/23/23 06:50 06:50 WBC 5.60 Hgb 11.9 L Hct 37.2 L Plt Count 224 Sodium 134 L Potassium 6.2 H* BUN 35 H Creatinine 1.75 H Glucose 328 H Total Bilirubin 0.5 AST 16 ALT 26 Alkaline Phosphatase 90 Imagings Data: darrenrice EXAM DESCRIPTION: Marisol Single View03/23/2023 7:21 am CLINICAL HISTORY: Shortness of breath COMPARISON: March 17, 2023 FINDINGS: Mild bilateral pulmonary opacities Heart is moderately enlarged. Postsurgical changes involve the chest IMPRESSION: Mild bilateral pulmonary opacities may indicate mild pulmonary edema [id number] LEFT VENTRICULAR WALL MOTION: MODERATE GLOBAL HYPOKINESIS DOPPLER/COLOR FLOW: SEE BELOW COMMENTS: 1. MODERATELY DEPRESSED LEFT VENTRICULAR EJECTION FRACTION 30-35% 2. MODERATE GLOBAL HYPOKINESIS 3. MILD MITRAL REGURGITATION, TRICUSPID REGURGITATION, PULMONIC INSUFFICIENCY 4. MODERATE AORTIC INSUFFICIENCY 5. MODERATE DIASTOLIC DYCFUNCTION Conclusions/Impression: Stage I [place] likely CRS CKD III -No NSAIDs -Continue torsemide Hyponatremia -Continue torsemide Hyperkalemia -Continue torsemide HTN with CKD/ CHF -Hold Losartan at this time Systolic CHF -Low sodium diet -Daily weight -Continue torsemide daily DM II -RISS Anemia in chronic illness Hx iron deficiency -Monitor H&H BPH with LUTS -Continue tamsulosin Hospitalist note reviewed
== END 2023-03-24 13:31 | disposition home or self-care (01) ==
LOC: ER 06:17 → ERHOLD 08:38 → INTOOBSV 08:38 → 4TH 16:53
PROVIDERS: ADMIT Hospitalist; ATTEND Hospitalist
DX: I50.40 Unspecified combined systolic (congestive) and diastolic (congestive) heart failure (principal); U07.1 COVID-19; B97.21 SARS-associated coronavirus as the cause of diseases classified elsewhere; J96.00 Acute respiratory failure, unspecified whether with hypoxia or hypercapnia; N17.9 Acute kidney failure, unspecified; I48.11 Longstanding persistent atrial fibrillation; I13.0 Hypertensive heart and chronic kidney disease with heart failure and stage 1 through stage 4 chronic kidney disease, or unspecified chronic kidney disease; E11.22 Type 2 diabetes mellitus with diabetic chronic kidney disease; N18.30 Chronic kidney disease, stage 3 unspecified; D63.8 Anemia in other chronic diseases classified elsewhere; N40.1 Benign prostatic hyperplasia with lower urinary tract symptoms; E87.1 Hypo-osmolality and hyponatremia; E87.5 Hyperkalemia; I25.10 Atherosclerotic heart disease of native coronary artery without angina pectoris; R05.9 Cough, unspecified; D72.829 Elevated white blood cell count, unspecified; Z79.01 Long term (current) use of anticoagulants; Z91.148 Patient's other noncompliance with medication regimen for other reason; Z79.4 Long term (current) use of insulin; Z85.46 Personal history of malignant neoplasm of prostate; Z88.5 Allergy status to narcotic agent; Z95.1 Presence of aortocoronary bypass graft
CPT/HCPCS: 93005; 85025 ×2; 80048 ×2; 36415; 83735; 82947 ×5; 84484; 80053; 83880 ×2; 71045; 94760; 96375; 96374; 99285; J1815 ×6; J1940 ×2; J2405; G0378

== ENCOUNTER 2024-02-08 13:51 | Inpatient (IN) | payer BC, OTHER ==
[2024-02-08 15:00] LABS: Absolute Eosinophils 0.2 K/uL (0-0.5); Absolute Lymphocytes (CBC) 0.9 K/uL (0.7-4.9); Absolute Monocytes 0.9 K/uL (0.1-1.3); Absolute Neutrophil 7.7 K/uL (1.8-8.0); Basophils % 0.4 % (0-1.3); Eosinophils % 2.1 % (0-4.4); Hematocrit 39.5 % (39.6-49.0); Hemoglobin 13.3 g/dL (13.6-17.9); Lymphocytes % 9.1 % (15.3-44.8); MCH 28.6 pg (27.0-35.0); MCHC 33.6 g/dL (32.0-36.0); MCV 84.9 fL (80-100); MPV 7.3 fL (7.6-11.3); Monocytes % 9.7 % (3.3-12.3); Neutrophils % 78.7 % (41.7-73.7); Platelets 301 thou/uL (152-406); RBC Red Blood Cell Count 4.65 M/uL (4.33-5.43); Red Cell Distribution Width 13.2 % (12.1-15.2)
--- NOTE | 2024-02-08 15:00 | RAD REPORT ---
EXAMINATION: XR RIGHT FOOT CLINICAL INDICATION: Male, 78 years old. drainage from 1/2nd digits TECHNIQUE: Multiple views of the right foot were obtained. COMPARISON: No prior exam. FINDINGS: Mild diffuse osteopenia. Vascular calcifications are seen. No radiographic evidence of oste omyelitis. If osteomyelitis remains a clinical concern, MR imaging follow-up would be advised.
[2024-02-08 15:04] LABS: PT Prothrombin Time 22.6 SECONDS (9.4-12.5); PTT, Activated Partial Thromb 43.6 SECONDS (24.3-36.9); Protime INR 2.06
[2024-02-08 15:17] LABS: AST/SGOT 11 U/L (15-37); Albumin 3.5 g/dL (3.4-5.0); Albumin/Globulin Ratio 0.7 (1.1-1.8); Alkaline Phosphatase 94 U/L (45-117); Anion Gap 8.3 mEq/L (5.0-15.0); BUN Blood Urea Nitrogen 23 mg/dL (7-18); Bicarbonate 30 mEq/L (21-32); Bilirubin Total 0.8 mg/dL (0.2-1.0); Globulin 4.8 g/dL (2.3-3.5); Glomerular Filtration Rate 57 ml/min (=/>90); Glucose Level 142 mg/dL (74-106); Potassium 4.3 mEq/L (3.5-5.1); Protein, Total 8.3 g/dL (6.4-8.2); Sodium Level 138 mEq/L (136-145)
[2024-02-08] MEDS ORDERED: ACETAMINOPHEN 500 MG TAB ONE (15:33)
[2024-02-08] MEDS ORDERED: VANCOMYCIN 1 GM/VIAL ONE (15:33)
[2024-02-08] MEDS ORDERED: NA CHLORIDE 0.9% 100 ML ONE (15:34)
[2024-02-08] MEDS ORDERED: CEFEPIME 1 GM/VIAL ONE (15:34)
[2024-02-08] MEDS ORDERED: NA CHLORIDE 0.9% 250 ML ONE (15:34)
[2024-02-08 15:36] LABS: ALT/SGPT < 14 U/L (16-61)
--- NOTE | 2024-02-08 15:45 | EDPHYS ---
Physician Documentation [facility] Name: Navjot Collins Age: 78 yrs Sex: Male : 1945 Arrival Date: 02/08/2024 Time: 13:51 Bed 18 Private MD: ED Physician Yan Asher HPI: 02/07 13:55 This 78 yrs old Male presents to ER via Unassigned with complaints of Foot ec2 Injury. 13:55 Patient arrives today for evaluation of issues with his right lower extremity. States ec2 that he has some chronic wounds and states that he is having some redness. No fevers or chills, no nausea or vomiting.. Historical: - Allergies: 13:56 Codeine; tm6 13:56 Demerol; tm6 13:56 fedrazil; tm6 13:56 Vicodin; tm6 - PMHx: 13:56 Atrial Fib; CAD; CHF; Diabetes - IDDM; HTN; PROSTATE CA; tm6 - PSHx: 13:56 Amputated below knee; Bladder; Coronary artery bypass graft; prostate; Stented artery; tm6 - Immunization history:: Client reports receiving the 2nd dose of the Covid vaccine. - Infectious Disease History:: Denies. - Social history:: Smoking status: Patient denies any tobacco usage or history of. ROS: 13:55 Constitutional: as per hpi ec2 Exam: 13:55 Constitutional: GEN: NAD Head: atraumatic Eyes: EOMI Ears: External ears are ec2 normal. CV: regular rate LUNGS: no respiratory distress ABD: non-distended SKIN: Right lower extremity with dependent edema along with marked erythema as well as malodorous drainage from the right foot. MSK: no evidence of trauma Vital Signs: 13:53 BP 128 / 75; Pulse 77; Resp 17; Temp 98.3(O); Pulse Ox 99% on R/A; MAP 90 mmHg; tm6 13:56 Weight 83.91 kg; Height 6 ft. 1 in. ; Pain 0/10; tm6 19:00 BP 110 / 59; Pulse 63; Resp 18; Pulse Ox 97% ; cp4 13:56 Body Mass Index 24.41 (83.91 kg, 185.42 cm) tm6 13:56 Pain Scale: Adult tm6 MDM: 13:52 Medical Screening Exam initiated ec2 13:57 Data reviewed: vital signs, nurses notes. ED course: Patient arrives today for ec2 malodorous wound along with erythema. Examination remarkable for skin findings as above. Will obtain lab work as well as foot x-ray. Differential includes osteomyelitis, cellulitis. Patient will require admission for IV antibiotics. 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 15:31 ED course: EKG independently reviewed and interpreted by me, shows normal sinus rhythm, ec2 rate of 60, no acute ST segment elevations, intervals are pertinent for slight QTc prolongation of 508.. 15:43 ED course: Metabolic profile is unrevealing. Will admit for cellulitis.. ec2 02/07 13:54 Order name: Blood Culture Adult (2) ec2 02/07 13:54 Order name: CBC with Diff; Complete Time: 15:04 ec2 02/07 13:54 Order name: CMP; Complete Time: 15:43 ec2 02/07 13:54 Order name: Protime (+inr); Complete Time: 15:04 ec2 02/07 13:54 Order name: Ptt, Activated; Complete Time: 15:04 ec2 02/07 17:55 Order name: Vancomycin Level Trough EDMS 02/07 18:53 Order name: CBC with Automated Diff EDMS 02/07 18:53 Order name: CBC with Automated Diff EDMS 02/07 18:53 Order name: CBC with Automated Diff EDMS 02/07 18:53 Order name: CBC with Automated Diff EDMS 02/07 18:53 Order name: Comprehensive Metabolic Panel EDMS 02/07 18:53 Order name: Comprehensive Metabolic Panel EDMS 02/07 18:53 Order name: Comprehensive Metabolic Panel EDMS 02/07 18:53 Order name: Comprehensive Metabolic Panel EDMS 02/07 18:53 Order name: Lipid Profile EDMS 02/07 18:53 Order name: Lipid Profile EDMS 02/07 18:53 Order name: Magnesium EDMS 02/07 18:53 Order name: Magnesium EDMS 02/07 18:53 Order name: Magnesium EDMS 02/07 18:53 Order name: Magnesium EDMS 02/07 18:53 Order name: Protime (+INR) EDMS 02/07 18:53 Order name: Protime (+INR) EDMS 02/07 18:54 Order name: Protime (+INR) EDMS 02/07 18:54 Order name: Protime (+INR) EDMS 02/07 18:54 Order name: PTT, Activated Partial Thromb EDMS 02/07 18:54 Order name: PTT, Activated Partial Thromb EDMS 02/07 18:54 Order name: PTT, Activated Partial Thromb EDMS 02/07 18:54 Order name: PTT, Activated Partial Thromb EDMS 02/07 13:56 Order name: Foot Right 3 View XRAY; Complete Time: 15:04 ec2 02/07 16:32 Order name: US Lower Extremity Artery Uni Ltd cc6 02/07 18:53 Order name: CONS Physician Consult EDFL 02/07 18:54 Order name: Patient Safety Orders [facility] 02/07 13:54 Order name: Accucheck; Complete Time: 15:21 ec2 02/07 13:54 Order name: Cardiac monitoring; Complete Time: 15:29 ec2 02/07 13:54 Order name: EKG - Nurse/Tech; Complete Time: 15:29 ec2 02/07 13:54 Order name: IV Saline Lock - Large Bore; Complete Time: 14:52 ec2 02/07 13:54 Order name: Labs collected and sent; Complete Time: 14:53 ec2 02/07 13:54 Order name: O2 Per Protocol; Complete Time: 15:21 ec2 02/07 13:54 Order name: O2 Sat Monitoring; Complete Time: 15:21 ec2 02/07 13:54 Order name: Vital Signs; Complete Time: 15:21 ec2 Administered Medications: 15:43 Drug: Cefepime IVPB 1 grams IVPB at 200 ml/hr once over 30 mins; (mix in NS 100 mL) tm6 Route: IVPB; Rate: 200 ml/hr; Infused Over: 30 mins; Site: right antecubital; 16:14 Follow up: Response: No adverse reaction; IV Status: Completed infusion; IV Intake: tm6 100ml 16:15 Not Given (Patient Refused): [id number] mg PO once tm6 16:34 Drug: vancoMYCIN IVPB 1 grams IVPB once over 2 hrs Route: IVPB; Infused Over: 2 hrs; tm6 Site: right antecubital; 18:04 Follow up: Response: No adverse reaction; IV Status: Completed infusion; IV Intake: tm6 250ml Disposition Summary: 02/08/24 15:44 Hospitalization Ordered Notes: Hospitalization Status: Inpatient Admission ec2 Provider: Maris Chao ec2 Location: Telemetry/MedSurg (Inpatient) ec2 Condition: Stable ec2 Problem: new ec2 Symptoms: are unchanged ec2 Bed/Room Type: Standard ec2 Room Assignment: 213(02/08/24 19:09) iw Diagnosis - Cellulitis of right lower limb ec2 Forms: - Medication Reconciliation Form ec2 - SBAR form ec2 - Leadership Thank You Letter ec2 Signatures: Dispatcher [employer] Ira Jha, JUDE RN iw Yan Asher MD MD ec2 Benjie Garcia RN RN tm6 Corrections: (The following items were deleted from the chart) 13:55 13:55 BLOOD CULTURE*+BA.LAB.BRZ ordered. EDMS EDMS 13:55 13:55 CBC+H.LAB.BRZ ordered. EDMS EDMS 13:55 13:55 COMPREHENSIVE METABOLIC PANEL+C.LAB.BRZ ordered. EDMS EDMS 13:55 13:55 PROTIME (+INR)+COAG.LAB.BRZ ordered. EDMS EDMS 13:55 13:55 PTT, ACTIVATED+COAG.LAB.BRZ ordered. EDMS EDMS 19:09 15:44 ec2 iw
--- NOTE | 2024-02-08 15:45 | ER ---
Nurse's Notes [facility] Name: Navjot Collins Age: 78 yrs Sex: Male : 1945 Arrival Date: 02/08/2024 Time: 13:51 Bed 18 Private MD: Diagnosis: Cellulitis of right lower limb Presentation: 02/07 13:53 Chief complaint: EMS states: patient has several diabetic foot ulcers to right foot, tm6 which he keeps wrapped. He tried to change the bandage today, but was having difficulty, so he used some kind of metal tool to cut the bandage. By doing so, he also poked his leg. Patient is on blood thinner and could not get the wound to stop bleeding. Coronavirus screen: Client denies travel out of the [place] in the last 14 days. Ebola Screen: Patient negative for fever greater than or equal to 101.5 degrees Fahrenheit, and additional compatible Ebola Virus Disease symptoms Patient denies exposure to infectious person. Patient denies travel to an Ebola-affected area in the 21 days before illness onset. No symptoms or risks identified at this time. Initial Sepsis Screen: Does the patient meet any 2 criteria? No. Patient's initial sepsis screen is negative. Does the patient have a suspected source of infection? No. Patient's initial sepsis screen is negative. Risk Assessment: Do you want to hurt yourself or someone else? Patient reports no desire to harm self or others. Onset of symptoms was February 08, 2024. 13:53 Method Of Arrival: EMS: [facility] tm6 13:53 Acuity: ZENAIDA 3 tm6 Triage Assessment: 13:56 General: Appears in no apparent distress. Behavior is calm, cooperative. Pain: Denies tm6 pain. EENT: No signs and/or symptoms were reported regarding the EENT system. Neuro: Level of Consciousness is awake, alert, obeys commands, Oriented to person, place, time, situation, Reports neuropathy in right leg. Cardiovascular: Patient's skin is warm and dry. Respiratory: Airway is patent Respiratory effort is even, unlabored, Respiratory pattern is regular, symmetrical. GI: No signs and/or symptoms were reported involving the gastrointestinal system. Abdomen is flat, non-distended. : No signs and/or symptoms were reported regarding the genitourinary system. Derm: Wound noted right foot and right leg Wound is multiple diabetic foot ulcers, ranging in size. leg is swollen and red. Musculoskeletal: Swelling present in right foot and right leg. Injury Description: Puncture sustained to right leg. Historical: - Allergies: 13:56 Codeine; tm6 13:56 Demerol; tm6 13:56 fedrazil; tm6 13:56 Vicodin; tm6 - PMHx: 13:56 Atrial Fib; CAD; CHF; Diabetes - IDDM; HTN; PROSTATE CA; tm6 - PSHx: 13:56 Amputated below knee; Bladder; Coronary artery bypass graft; prostate; Stented artery; tm6 - Immunization history:: Client reports receiving the 2nd dose of the Covid vaccine. - Infectious Disease History:: Denies. - Social history:: Smoking status: Patient denies any tobacco usage or history of. Screenin:00 [facility] ED Fall Risk Assessment (Adult) History of falling in the last 3 months, tm6 including since admission No falls in past 3 months (0 pts) Confusion or Disorientation No (0 pts) Intoxicated or Sedated No (0 pts) Impaired Gait No (0 pts) Mobility Assist Device Used Yes (1 pt) Altered Elimination No (0 pt) Score/Fall Risk Level 0 - 2 = Low Risk Oriented to surroundings, Maintained a safe environment, Educated pt \\T\\ family on fall prevention, incl call for assistance when getting out of bed. Abuse screen: Denies threats or abuse. Denies injuries from another. Nutritional screening: No deficits noted. Tuberculosis screening: No symptoms or risk factors identified. Assessment: 14:00 Reassessment: see triage assessment. tm6 Vital Signs: 13:53 BP 128 / 75; Pulse 77; Resp 17; Temp 98.3(O); Pulse Ox 99% on R/A; MAP 90 mmHg; tm6 13:56 Weight 83.91 kg; Height 6 ft. 1 in. ; Pain 0/10; tm6 19:00 BP 110 / 59; Pulse 63; Resp 18; Pulse Ox 97% ; cp4 13:56 Body Mass Index 24.41 (83.91 kg, 185.42 cm) tm6 13:56 Pain Scale: Adult tm6 ED Course: 13:51 Patient arrived in ED. ec2 13:52 Yan Asher MD is Attending Physician. ec2 13:52 Benjie Garcia, RN is Primary Nurse. tm6 13:56 Triage completed. tm6 14:00 Arm band placed on right wrist. tm6 14:00 Patient has correct armband on for positive identification. Bed in low position. Call tm6 light in reach. Side rails up X2. Provided Education on: use of call abel. Client placed on continuous cardiac and pulse oximetry monitoring. NIBP monitoring applied. windows administrator on. Pulse ox on. NIBP on. Door closed. Noise minimized. 14:39 Initial lab(s) drawn, by me, sent to lab. First set of blood cultures drawn by me, nh2 Second set of blood cultures drawn by me. 14:46 Inserted saline lock: 20 gauge in right forearm, using aseptic technique. Blood nh2 collected. Flushed with 10 mL NS. 14:53 Blood Culture Adult (2) Sent. nh2 14:53 CBC with Diff Sent. nh2 14:53 CMP Sent. nh2 14:53 Protime (+inr) Sent. nh2 14:53 Ptt, Activated Sent. nh2 14:54 Foot Right 3 View XRAY In Process Unspecified. EDMS 15:29 EKG done, by ED staff, reviewed by Benjie Garcia RN. tm6 15:43 Maris Chao MD is Hospitalizing Provider. ec2 16:44 1644 CM met with Mr. Collins at the bedside in the ED exam room. Patient identified by ane name and . Demographic sheet confirmed. PCP is Missy Winkler NP. Dr. Pineda is his biofuels technology manager. MPOA is in place. Patient states his daughter Vanessa Helm is the appointed MPOA and his brother in- law Mark Chamorro is the alternate appointed MPOA. Mr. Collins states he lives alone in a single story home. He reports that prior to admission, he performs ADLs independently and is still gainfully employed at [employer]. 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 Patient has a Left BKA and a LLE prosthesis. He states there is only one step to enter his home. DME in the home includes a cane, walker and wheelchair. No HH, no home oxygen, or other medical services. His preferred plan is to return home upon discharge. Patient states he will have to call a friend or possibly take the bus home when he is discharged from the hospital. is not amenable to HH post discharge, stating " I have always done things myself and I rather like living alone". CM team will continue to follow and coordinate care. 18:03 Lower Extremity Artery Uni Ltd In Process Unspecified. EDMS 20:21 No provider procedures requiring assistance completed. Patient admitted, IV remains in cp4 place. Administered Medications: 15:43 Drug: Cefepime IVPB 1 grams IVPB at 200 ml/hr once over 30 mins; (mix in NS 100 mL) tm6 Route: IVPB; Rate: 200 ml/hr; Infused Over: 30 mins; Site: right antecubital; 16:14 Follow up: Response: No adverse reaction; IV Status: Completed infusion; IV Intake: tm6 100ml 16:15 Not Given (Patient Refused): [id number] mg PO once tm6 16:34 Drug: vancoMYCIN IVPB 1 grams IVPB once over 2 hrs Route: IVPB; Infused Over: 2 hrs; tm6 Site: right antecubital; 18:04 Follow up: Response: No adverse reaction; IV Status: Completed infusion; IV Intake: tm6 250ml Medication: 14:00 VIS not applicable for this client. tm6 Intake: 16:14 IV: 100ml; Total: 100ml. tm6 18:04 IV: 250ml; Total: 350ml. tm6 Outcome: 15:44 Decision to Hospitalize by Provider. ec2 20:21 Admitted to Med/surg cp4 20:21 Condition: stable 20:21 Instructed on the need for admit, 20:21 Patient left the ED. cp4 Signatures: Dispatcher [employer] EDAR Yan Asher MD MD 2 Laura Edwards 4 Benjie Garcia RN RN tm6 Magdalena Marquis RN RN ane Khang , Roe nh2
--- NOTE | 2024-02-08 16:48 | P.HP ---
Certification for Inpatient Patient admitted to: Inpatient With expected LOS: >2 Midnights Patient will require the following post-hospital care: None Practitioner: I am a practitioner with admitting privileges, knowledge of patient current condition, hospital course, and medical plan of care. Services: Services provided to patient in accordance with Admission requirements found in Title 42 Section 412.3 of the Code of Federal Regulations Patient History Date of Service: 02/08/24 Reason for admission: cellulitis, History of Present Illness: Mr. Powers is a 78-year-old gentleman with a past medical history of hypertension, CAD, CHF, A-fib with chronic anticoagulation, prostate cancer with resection and continued LUTS, insulin-dependent diabetes, and distant left AKA. He presented to the ED today for evaluation of his right lower leg that he felt may be infected. It has been malodorous and draining serosanguineous liquid. He wrapped the area with a nonstick Telfa and Coban for 3 days and now it has a tourniquet looking affect to the right ankle. He denies any pain, fever, nausea/vomiting, history of anemia. At bedside he is mildly pale, fatigued, with his right lower leg and foot unwrapped and dripping serosanguineous liquid. After arterial ultrasound, we will admit him for IV antibiotics and consultation with Dr. Kendrick. Allergies acetaminophen [From Vicodin] Adverse Reaction (Verified 02/08/20 05:56) Nausea/Vomiting codeine Adverse Reaction (Verified 02/08/20 05:56) Nausea/Vomiting hydrocodone bitartrate [From Vicodin] Adverse Reaction (Verified 02/08/20 05:56) Nausea/Vomiting Home medications list reviewed: Yes Home Medications: Insulin Degludec [Tresiba Flextouch U-200] 40 units SQ BEDTIME 04/14/18 Liothyronine [Cytomel*] 1 tab PO DAILY 04/14/18 Tamsulosin HCl 0.4 mg PO BEDTIME 04/14/18 Sotalol HCl [Betapace*] 80 mg PO BID 6AM 6PM #60 tab 05/28/19 glipiZIDE [Glipizide ER] 10 mg PO BID 02/08/20 Dapagliflozin Propanediol [Farxiga] 5 mg PO DAILY 03/28/21 Losartan Potassium 25 mg PO DAILY 03/28/21 Rivaroxaban [Xarelto] 20 mg PO BEDTIME 03/28/21 Rosuvastatin Calcium [Crestor] 20 mg PO DAILY 03/28/21 Famotidine 20 mg PO DAILY 01/28/23 Finasteride 5 mg PO DAILY 01/28/23 Magnesium Oxide [Magnesium] 500 mg PO BID 01/28/23 Oseltamivir Phosphate [Tamiflu] 75 mg PO BID 01/28/23 Zinc Gluconate [Zinc] 30 mg PO DAILY 01/28/23 Liothyronine Sodium [Cytomel] 25 mcg PO ACB 30 Days #30 tab 01/30/23 Torsemide [Demadex*] 20 mg PO Q24H 60 Days #60 tab 03/24/23 - Past Medical/Surgical History Has patient received pneumonia vaccine in the past: No Diabetic: Yes -: DM II -: HTN -: CKD III (Dr. Márquez/ Dr. Aguilar) -: Systolic CHF -: CAD -: HLD -: Atrial fibrillation on chronic anticoagulation -: Enlarged Prostate with LUTS -: Prostate cancer -: carotid stent -: CABG 2016 -: BKA left leg -: Prostate surgery -: bladder surgery -: skin graft Psychosocial/ Personal History: Patient lives at home with his family - Family History Father -: Heart disease Mother -: Lung disease Notes: COPD, leaking heart valve, emphysema - Social History Smoking Status: Unknown if ever smoked Alcohol use: No CD- Drugs: No Caffeine use: No Place of Residence: Home (cane, walker, w/c (doesn't use, "I still work")) Review of Systems 10-point ROS is otherwise unremarkable (co) General: Other (concerned for leg infection) Eyes: Unremarkable ENT: Unremarkable Respiratory: Unremarkable Cardiovascular: Unremarkable Gastrointestinal: Unremarkable Genitourinary: Unremarkable Musculoskeletal: Unremarkable Integumentary: As per HPI Neurological: Unremarkable Lymphatics: Unremarkable Physical Examination - Vital Signs Temperature: 98.3 F Blood Pressure: 128/75 Pulse: 77 Respirations: 19 Pulse Ox (%): 99 - Physical Exam General: Alert, In no apparent distress, Oriented x3, Other (pale) HEENT: Atraumatic, Normocephalic, Other (pale subconjunctiva) Neck: Supple Respiratory: Clear to auscultation bilaterally Cardiovascular: No edema, Regular rate/rhythm, Normal S1 S2, No murmurs Capillary refill: <2 Seconds Gastrointestinal: Soft and benign Musculoskeletal: No tenderness, Erythema, Warmth Integumentary: Erythema (right lower calf to foot with malodorous serosang drainage, erythema, poor sensation, crusting, and a tourniquet appearance at ankle with skin breakdown), Arterial ulcer Neurological: Normal speech, Normal tone Lymphatics: No axilla or inguinal lymphadenopathy External genitalia: Deferred Rectal: Deferred - Studies Laboratory Data (last 24 hrs) 02/08/24 02/08/24 02/08/24 14:39 14:39 14:39 WBC 9.80 Hgb 13.3 L Hct 39.5 L Plt Count 301 PT 22.6 H INR 2.06 APTT 43.6 H Sodium 138 Potassium 4.3 BUN 23 H Creatinine 1.29 Glucose 142 H Total Bilirubin 0.8 AST 11 L ALT < 14 L Alkaline Phosphatase 94 Assessment and Plan - Plan Cellulitis Hx of IDDM, CAD, CHF, A. fib (NSR now with prolonged QTc), Plan: 1. Continue IV antibiotics 2. Continue with local wound care 3. Wound care consultation/surgical consultation - Dr. Kendrick (done) 4. Gentle IV hydration 5. Monitor and trend labs 6. Strict blood sugar monitoring 7. Pain control 8. GI and DVT prophylaxis continue home medications for Chronic medical problems PRN surgical therapy, will need cardiac clearance - Advance Directives Does patient have a Living Will: No Does patient have a Durable POA for Healthcare: No - Code Status/Comfort Care Code Status Assessed: Yes (Full) Code Status: Full Code Critical Care: No
[2024-02-08] MEDS ORDERED: SODIUM CHLORIDE 0.9% 10ML INJ IV PRN (17:07)
[2024-02-08] MEDS ORDERED: ACETAMINOPHEN 500 MG TAB PO PRN (17:18)
[2024-02-08] MEDS: INSULIN GLARGINE 100 UNIT/ML SQ SCH (18:00)
--- NOTE | 2024-02-08 18:15 | RAD REPORT ---
EXAMINATION:Lower Extremity Artery Uni Ltd CLINICAL INDICATION: Male, 78 years old. discoloration RIGHT TECHNIQUE: Arterial duplex ultrasound was performed of the right lower extremity with real-time, colo r-flow, and spectral wave Doppler evaluation. Ankle brachial indices were not performed. COMPARISON: No prior exam. FINDINGS: Mild plaque throughout the evaluated arterial system. Triphasic waveforms are seen throughout the evaluated left lower extremity arterial system, posterior tibial artery. Monophasic flow noted posterior tibial and dorsalis pedis. IMPRESSION: [id number] distal peripheral vascular disease noted on the right.
[2024-02-08] MEDS: VANCOMYCIN 1.5 GM in NA CHLORIDE 0.9% 500 ML IVPB SCH (22:31)
[2024-02-08] MEDS: CEFEPIME 2 GM in NA CHLORIDE 0.9% 100 ML IV SCH (22:31)
[2024-02-08] MEDS: TAMSULOSIN 0.4 MG SR CAP PO SCH (22:32)
[2024-02-08] MEDS: SOTALOL HCL 80 MG TAB PO SCH (22:32)
[2024-02-08] MEDS: ROSUVASTATIN 10 MG TAB PO SCH (22:32)
[2024-02-08] MEDS: RIVAROXABAN 20 MG TABLET PO SCH (22:32)
[2024-02-08] MEDS: PANTOPRAZOLE 40 MG INJ IVP SCH (22:34)
[2024-02-09 00:42] LABS: Specific Gravity 1.027 (1.005-1.030); Sqamous Epithelial None Seen /HPF (None Seen); Urine Bacteria None Seen /HPF (<20); Urine Bilirubin NEGATIVE (Negative); Urine Blood 3+ (OVER) (Negative); Urine Clarity Extremely Turbid (Clear); Urine Color Colorless (Yellow); Urine Culture Reflex Order NOT NEEDED; Urine Glucose 4+ (Over) (Negative); Urine Ketones NEGATIVE (Negative); Urine Microscopic Reflex YN ORDER UMIC; Urine Nitrite NEGATIVE (Negative); Urine Protein TRACE (Negative); Urine RBC >50 /HPF (None Seen); Urine Urobilinogen Normal (Normal); Urine Yeast (Budding) Trace /HPF (None Seen); Urine pH 5.5 (5.0-7.0)
[2024-02-09 04:25] LABS: Absolute Basophils 0.1 K/uL (0-0.5); Absolute Eosinophils 0.2 K/uL (0-0.5); Absolute Lymphocytes (CBC) 1.1 K/uL (0.7-4.9); Absolute Monocytes 0.9 K/uL (0.1-1.3); Absolute Neutrophil 6.4 K/uL (1.8-8.0); Basophils % 0.7 % (0-1.3); Eosinophils % 2.1 % (0-4.4); Hematocrit 37.2 % (39.6-49.0); Hemoglobin 12.4 g/dL (13.6-17.9); Lymphocytes % 13.1 % (15.3-44.8); MCH 28.3 pg (27.0-35.0); MCHC 33.3 g/dL (32.0-36.0); MCV 84.9 fL (80-100); Monocytes % 10.9 % (3.3-12.3); Neutrophils % 73.2 % (41.7-73.7); Platelets 292 thou/uL (152-406); RBC Red Blood Cell Count 4.39 M/uL (4.33-5.43); Red Cell Distribution Width 13.2 % (12.1-15.2)
[2024-02-09 04:30] LABS: Protime INR 2.57
[2024-02-09 04:44] LABS: AST/SGOT 11 U/L (15-37); Albumin 2.7 g/dL (3.4-5.0); Albumin/Globulin Ratio 0.7 (1.1-1.8); Alkaline Phosphatase 75 U/L (45-117); Anion Gap 5.2 mEq/L (5.0-15.0); BUN Blood Urea Nitrogen 23 mg/dL (7-18); Bicarbonate 30 mEq/L (21-32); Bilirubin Total 0.7 mg/dL (0.2-1.0); Globulin 3.9 g/dL (2.3-3.5); Glomerular Filtration Rate 62 ml/min (=/>90); Glucose Level 187 mg/dL (74-106); HDL Cholesterol 39 mg/dL (40-60); LDL Cholesterol, Calculated 27 mg/dL (<130); LDL Cholesterol,Calc NonReport 27; Magnesium 2.4 mg/dL (1.6-2.4); Potassium 4.2 mEq/L (3.5-5.1); Protein, Total 6.6 g/dL (6.4-8.2); Sodium Level 139 mEq/L (136-145)
[2024-02-09 04:46] LABS: ALT/SGPT < 14 U/L (16-61)
[2024-02-09] MEDS: LIOTHYRONINE SOD 25 MCG TAB PO SCH (05:44)
[2024-02-09] MEDS: FINASTERIDE 5 MG TAB PO SCH (09:06)
[2024-02-09] MEDS: LOSARTAN POTASSIUM 50 MG TABLET PO SCH (09:06)
[2024-02-09] MEDS: NA CHLORIDE 0.9% 500 ML IV ONE (12:52)
--- NOTE | 2024-02-09 13:00 | P.PN ---
Date of Service: 02/09/24 Subjective sleeping in no distress. No c/o. Dressing clean and dry to lower right leg Review of Systems 10-point ROS is otherwise unremarkable (co) General: Other (concerned for leg infection) Eyes: Unremarkable ENT: Unremarkable Respiratory: Unremarkable Cardiovascular: Unremarkable Gastrointestinal: Unremarkable Genitourinary: Unremarkable Musculoskeletal: Unremarkable Integumentary: As per HPI Neurological: Unremarkable Lymphatics: Unremarkable Physical Examination - Vital Signs Reviewed - Physical Exam General: Alert, In no apparent distress, Oriented x3, Other (pale) HEENT: Atraumatic, Normocephalic, Other (pale subconjunctiva) Neck: Supple Respiratory: Clear to auscultation bilaterally Cardiovascular: No edema, Regular rate/rhythm, Normal S1 S2, No murmurs Capillary refill: <2 Seconds Gastrointestinal: Soft and benign Musculoskeletal: No tenderness, Erythema, Warmth Integumentary: Erythema peeking out from loose, dry, clean kerlix, Arterial ulcer - US yest + for mild/moderate PAD Neurological: Normal speech, Normal tone Lymphatics: No axilla or inguinal lymphadenopathy External genitalia: Deferred Rectal: Deferred - Studies Laboratory Data (last 24 hrs) 02/08/24 02/08/24 02/08/24 14:39 14:39 14:39 WBC 9.80 Hgb 13.3 L Hct 39.5 L Plt Count 301 PT 22.6 H INR 2.06 APTT 43.6 H Sodium 138 Potassium 4.3 BUN 23 H Creatinine 1.29 Glucose 142 H Total Bilirubin 0.8 AST 11 L ALT < 14 L Alkaline Phosphatase 94 Assessment and Plan Cellulitis Hx of IDDM, CAD, CHF, A. fib (NSR now with prolonged QTc), Plan: 1. Continue IV antibiotics 2. Continue with local wound care 3. Wound care consultation/surgical consultation - Dr. Kendrick (done), discussed lab values and increased INR 4. Gentle IV hydration 5. Monitor and trend labs 6. Strict blood sugar monitoring 7. Pain control 8. GI and DVT prophylaxis INR elevation/prolonged bleeding times with hematuria eval possible causes, discuss with surgery for any debridement planning continue home medications for Chronic medical problems PRN surgical therapy, will need cardiac clearance - Advance Directives Does patient have a Living Will: No Does patient have a Durable POA for Healthcare: No - Code Status/Comfort Care Code Status Assessed: Yes (Full) Code Status: Full Code Critical Care: No
[2024-02-09] MEDS ORDERED: D10W 125 ML IV PRN (20:17)
[2024-02-09] MEDS ORDERED: GLUCAGON 1 MG/VIAL IM PRN (20:17)
[2024-02-09] MEDS: INSULIN REGULAR (HUMAN) 100 UNIT/ML SQ SCH (21:00)
[2024-02-09 22:10] VITALS: BMI 24.4
[2024-02-10 04:41] LABS: Absolute Eosinophils 0.2 K/uL (0-0.5); Absolute Lymphocytes (CBC) 0.9 K/uL (0.7-4.9); Absolute Neutrophil 6.3 K/uL (1.8-8.0); Basophils % 0.4 % (0-1.3); Eosinophils % 2.2 % (0-4.4); Hematocrit 35.9 % (39.6-49.0); Hemoglobin 11.9 g/dL (13.6-17.9); Lymphocytes % 10.3 % (15.3-44.8); MCV 84.8 fL (80-100); MPV 7.2 fL (7.6-11.3); Monocytes % 12.3 % (3.3-12.3); Neutrophils % 74.8 % (41.7-73.7); Platelets 279 thou/uL (152-406); RBC Red Blood Cell Count 4.23 M/uL (4.33-5.43); Red Cell Distribution Width 13.1 % (12.1-15.2)
[2024-02-10 04:48] LABS: PT Prothrombin Time 20.5 SECONDS (9.4-12.5); PTT, Activated Partial Thromb 38.6 SECONDS (24.3-36.9); Protime INR 1.86
[2024-02-10 05:01] LABS: Albumin 2.6 g/dL (3.4-5.0); Albumin/Globulin Ratio 0.7 (1.1-1.8); Alkaline Phosphatase 75 U/L (45-117); Anion Gap 7.4 mEq/L (5.0-15.0); BUN Blood Urea Nitrogen 24 mg/dL (7-18); Bicarbonate 28 mEq/L (21-32); Bilirubin Total 0.6 mg/dL (0.2-1.0); Globulin 3.8 g/dL (2.3-3.5); Glomerular Filtration Rate 58 ml/min (=/>90); Glucose Level 168 mg/dL (74-106); Magnesium 2.3 mg/dL (1.6-2.4); Potassium 4.4 mEq/L (3.5-5.1); Protein, Total 6.4 g/dL (6.4-8.2); Sodium Level 140 mEq/L (136-145)
[2024-02-10 05:14] LABS: ALT/SGPT < 14 U/L (16-61); AST/SGOT < 10 U/L (15-37)
--- NOTE | 2024-02-10 07:59 | P.CNS ---
Date of Consult: 02/09/24 Chief Complaint: cellulitis, non healing diabetic infected foot and leg ulcers History of Present Illness: 78 y/o male with hx PVD hc of amputation left leg now with infected diabetic ulcers over the leg lower extremities. Pt belive a constributiing factor was tight coband roll gauze he believe he used to tight few days ago. Allergies acetaminophen [From Vicodin] Adverse Reaction (Verified 02/08/20 05:56) Nausea/Vomiting codeine Adverse Reaction (Verified 02/08/20 05:56) Nausea/Vomiting hydrocodone bitartrate [From Vicodin] Adverse Reaction (Verified 02/08/20 05:56) Nausea/Vomiting Home Medications: Insulin Degludec [Tresiba Flextouch U-200] 40 units SQ BEDTIME 04/14/18 Tamsulosin HCl 0.4 mg PO BEDTIME 04/14/18 Sotalol HCl [Betapace*] 80 mg PO BID 6AM 6PM #60 tab 05/28/19 glipiZIDE [Glipizide ER] 10 mg PO BID 02/08/20 Dapagliflozin Propanediol [Farxiga] 5 mg PO DAILY 03/28/21 Losartan Potassium 25 mg PO DAILY 03/28/21 Rivaroxaban [Xarelto] 20 mg PO BEDTIME 03/28/21 Rosuvastatin Calcium [Crestor] 20 mg PO DAILY 03/28/21 Famotidine 20 mg PO DAILY 01/28/23 Finasteride 5 mg PO DAILY 01/28/23 Magnesium Oxide [Magnesium] 500 mg PO BID 01/28/23 Oseltamivir Phosphate [Tamiflu] 75 mg PO BID 01/28/23 Zinc Gluconate [Zinc] 30 mg PO DAILY 01/28/23 Liothyronine Sodium [Cytomel] 25 mcg PO ACB 30 Days #30 tab 01/30/23 Torsemide [Demadex*] 20 mg PO Q24H 60 Days #60 tab 03/24/23 - Past Medical/Surgical History Diabetic: Yes -: DM II -: HTN -: CKD III (Dr. Márquez/ Dr. Aguilar) -: Systolic CHF -: CAD -: HLD -: Atrial fibrillation on chronic anticoagulation -: Enlarged Prostate with LUTS -: Prostate cancer -: carotid stent -: CABG quintuple 2016 -: BKA left leg -: Prostate surgery -: bladder surgery -: skin graft Psychosocial/ Personal History: Patient lives at home with his family - Family History Father Medical History: Heart disease Mother Medical History: Lung disease Notes: COPD, leaking heart valve, emphysema - Social History Smoking Status: Unknown if ever smoked Alcohol use: No CD- Drugs: No Caffeine use: Yes Place of Residence: Home Review of Systems General: Unremarkable Cardiovascular: Chest Pain (no), Palpitations (no), Orthopnea (no), Paroxysmal Noc. Dyspnea (no), Light Headedness (no), Unremarkable Gastrointestinal: Unremarkable Integumentary: Other Physical Examination Temp Pulse Resp BP Pulse Ox 97.8 F 52 16 103/51 L 96 02/10/24 04:00 02/10/24 04:00 02/10/24 04:00 02/10/24 05:30 02/10/24 04:00 General: Alert, In no apparent distress, Oriented x3, Cooperative HEENT: Normocephalic, PERRLA, EOMI Neck: Supple Respiratory: Normal air movement Cardiovascular: Abnormal pulses (DP/PT), Irregular heart rate/rhythm (hx of afib) Gastrointestinal: Soft and benign, No masses, No rebound Musculoskeletal: Warmth Integumentary: Erythema, Warmth, Diabetic ulcer (cellulitis, non healing diabetic infected foot and leg ulcers) Neurological: Normal speech Conclusions/Impression: Right cellulitis, non healing diabetic infected foot and leg ulcers Excisional subQ debridement of non healing diabetic infected foot and leg ulcers BAR fully explained including but not limited to infection, bleeding, damage to adjacent structure, non healing Wound RI even . Pt state his vascular work up was done already as an outpatient by Dr Pineda Cardiology including cardiac work up and peripheral doppler with no immediate need for intervention per pt. He want to continue his peripheral work up as an outpt Pt explained the improtance of diabetic control and f/u at wound healing center for wound care.
[2024-02-10] MEDS: NA CHLORIDE 0.9% 0 ML ONE (08:38)
[2024-02-10] MEDS: NA CHLORIDE 0.9% 1,000 ML ONE (08:40)
[2024-02-10] MEDS ORDERED: FENTANYL CITR 100 MCG/2 ML ONE (09:10)
[2024-02-10] MEDS ORDERED: MIDAZOLAM HCL 2 MG/2 ML INJ ONE (09:10)
[2024-02-10] MEDS ORDERED: propofoL 200 MG/20 ML VIAL IV ONE (09:10)
[2024-02-10] MEDS ORDERED: LIDOCAINE 2% MPF 5 ML VIAL ONE (09:10)
[2024-02-10] MEDS ORDERED: GLYCOPYRROLATE 0.2 MG/ML SYR ONE (10:23)
[2024-02-10] MEDS: COLLAGENASE 30 GM OINTMENT TOP ONE (10:44)
--- NOTE | 2024-02-10 11:00 | P.BOP ---
Preoperative diagnosis: infected diabetic ulcer right leg and foot Postoperative diagnosis: same Primary procedure: Excisional debridment SubQ of right leg and foot infected Secondary procedure: 1. R Lat foot 5x3cm, 2. R dorsal foot 7.5x2cm, 3. R ant leg 2x2cm Other procedure(s): 4. R leg distal 5x2cm, 5. R medial leg 4x3cm Estimated blood loss: <10cc Specimen: necrotic tissue Findings: as above Anesthesia: MAC Complications: None Drain(s): Other Transferred to: Recovery Room Condition: Good
--- NOTE | 2024-02-10 11:50 | EKG ---
Test Date: 2024-02-08 Test Time: 15:26:28 Depositing Machine Operator: JAS MEASUREMENT RESULTS: Intervals: Rate: 60 GA: 240 QRSD: 94 QT: 508 QTc: 508 Tanner: P: 67 GA: 240 QRS: 113 T: 5 INTERPRETIVE STATEMENTS: Sinus rhythm with 1st degree AV block Nonspecific T wave abnormality Prolonged QT Abnormal ECG Compared to ECG 03/23/2023 07:20:30 Prolonged QT interval now present Sinus bradycardia no longer present Right-axis deviation no longer present T-wave abnormality still present Electronically Signed On 02-10-24 11:48:10 [employer] by Joseph Flores
[2024-02-10] MEDS: PNEUMOCOCCAL VACCINE 0.5 ML IMVAC ONE (12:00)
--- NOTE | 2024-02-10 13:16 | P.DS ---
Admission Date: 02/08/24 Discharge Date: 02/11/24 Disposition: ROUTINE DISCHARGE Discharge Condition: GOOD Reason for Admission: cellulitis, non healing diabetic infected foot and leg ulcers Consultations: Dr. Kendrick Procedures: Surgical debridement Brief History of Present Illness: Mr. Collins is a 78-year-old gentleman with a past medical history of hypertension, CAD, CHF, A-fib with chronic anticoagulation, prostate cancer with resection and continued LUTS, insulin-dependent diabetes, and distant left AKA. He presented to the ED today for evaluation of his right lower leg that he felt may be infected. It has been malodorous and draining serosanguineous liquid. He wrapped the area with a nonstick Telfa and Coban for 3 days and now it has a tourniquet looking affect to the right ankle. He denies any pain, fever, nausea/vomiting, history of anemia. At bedside he is mildly pale, fatigued, with his right lower leg and foot unwrapped and dripping serosanguineous liquid. After arterial ultrasound, we will admit him for IV antibiotics and consultation with Dr. Kendrick. Hospital Course: Mr. Collins was evaluated by Dr. Kendrick and it was decided that he will have gentle I&D of his right lower extremity. He was taken on 02/10/2024 to the OR and his wounds were debrided and dressed. He will be discharged today on oral antibiotics and he will follow-up with Dr. Kendrick in his clinic in 1 week. Mr. Collins did have elevation of his INR and is encouraged to have a diet sufficient in vitamin K. Vital Signs/Physical Exam: Temp Pulse Resp BP Pulse Ox 98.0 F 74 14 118/64 96 02/10/24 12:00 02/10/24 12:00 02/10/24 12:00 02/10/24 12:00 02/10/24 12:00 General: Alert, In no apparent distress, Oriented x3 HEENT: Atraumatic, Normocephalic Neck: Supple Respiratory: Normal air movement Cardiovascular: Normal pulses Capillary refill: <2 Seconds Gastrointestinal: Normal bowel sounds Musculoskeletal: No clubbing, Other (pt taken down to OR for surgical debridement of wounds to right lower ext) Laboratory Data at Discharge: WBC 8.40 thou/uL (4.3-10.9) 02/10/24 04:12 Hgb 11.9 g/dL (13.6-17.9) L 02/10/24 04:12 Hct 35.9 % (39.6-49.0) L 02/10/24 04:12 Plt Count 279 thou/uL (152-406) 02/10/24 04:12 PT 20.5 SECONDS (9.4-12.5) H 02/10/24 04:12 INR 1.86 02/10/24 04:12 APTT 38.6 SECONDS (24.3-36.9) H 02/10/24 04:12 Sodium 140 mEq/L (136-145) 02/10/24 04:12 Potassium 4.4 mEq/L (3.5-5.1) 02/10/24 04:12 BUN 24 mg/dL (7-18) H 02/10/24 04:12 Creatinine 1.28 mg/dL (0.70-1.30) 02/10/24 04:12 Glucose 168 mg/dL (74-106) H 02/10/24 04:12 Magnesium 2.3 mg/dL (1.6-2.4) 02/10/24 04:12 Total Bilirubin 0.6 mg/dL (0.2-1.0) 02/10/24 04:12 AST < 10 U/L (15-37) L 02/10/24 04:12 ALT < 14 U/L (16-61) L 02/10/24 04:12 Alkaline Phosphatase 75 U/L (45-117) 02/10/24 04:12 Triglycerides 52 mg/dL (<150) 02/09/24 04:15 Cholesterol 76 mg/dL (<200) 02/09/24 04:15 HDL Cholesterol 39 mg/dL (40-60) L 02/09/24 04:15 Cholesterol/HDL Ratio 1.95 02/09/24 04:15 Home Medications: Insulin Degludec [Tresiba Flextouch U-200] 40 units SQ BEDTIME 04/14/18 Tamsulosin HCl 0.4 mg PO BEDTIME 04/14/18 Sotalol HCl [Betapace*] 80 mg PO BID 6AM 6PM #60 tab 05/28/19 glipiZIDE [Glipizide ER] 10 mg PO BID 02/08/20 Dapagliflozin Propanediol [Farxiga] 5 mg PO DAILY 03/28/21 Losartan Potassium 25 mg PO DAILY 03/28/21 Rivaroxaban [Xarelto] 20 mg PO BEDTIME 03/28/21 Rosuvastatin Calcium [Crestor] 20 mg PO DAILY 03/28/21 Famotidine 20 mg PO DAILY 01/28/23 Finasteride 5 mg PO DAILY 01/28/23 Magnesium Oxide [Magnesium] 500 mg PO BID 01/28/23 Oseltamivir Phosphate [Tamiflu] 75 mg PO BID 01/28/23 Zinc Gluconate [Zinc] 30 mg PO DAILY 01/28/23 Liothyronine Sodium [Cytomel] 25 mcg PO ACB 30 Days #30 tab 01/30/23 Torsemide [Demadex*] 20 mg PO Q24H 60 Days #60 tab 03/24/23 Doxycycline Hyclate 100 mg PO BID #20 cap 02/10/24 New Medications: Doxycycline Hyclate 100 mg PO BID #20 cap Physician Discharge Instructions: Mr. Collins was evaluated by Dr. Kendrick and it was decided that he will have gen tle I&D of his right lower extremity. He was taken on 02/10/2024 to the OR and his wounds were debrided and dressed. He will be discharged tomorrow on oral antibiotics and he will follow-up with Dr. Kendrick in his clinic in 1 week. Diet: ADA Activity: Fall precautions Followup: Augusta Winkler [Primary Care Provider] - Dimas Kendrick MD [ACTIVE - CAN ADMIT] -
--- NOTE | 2024-02-10 17:47 | P.PN ---
Date of Service: 02/10/24 Subjective sleeping in no distress. No c/o. Dressing clean and dry to lower right leg Review of Systems 10-point ROS is otherwise unremarkable (co) General: Other (concerned for leg infection) Eyes: Unremarkable ENT: Unremarkable Respiratory: Unremarkable Cardiovascular: Unremarkable Gastrointestinal: Unremarkable Genitourinary: Unremarkable Musculoskeletal: Unremarkable Integumentary: As per HPI Neurological: Unremarkable Lymphatics: Unremarkable Physical Examination - Vital Signs Reviewed - Physical Exam General: Alert, In no apparent distress, Oriented x3, Other (pale) HEENT: Atraumatic, Normocephalic, Other (pale subconjunctiva) Neck: Supple Respiratory: Clear to auscultation bilaterally Cardiovascular: No edema, Regular rate/rhythm, Normal S1 S2, No murmurs Capillary refill: <2 Seconds Gastrointestinal: Soft and benign Musculoskeletal: No tenderness, Erythema, Warmth Integumentary: Erythema peeking out from loose, dry, clean kerlix, Arterial ulcer - US yest + for mild/moderate PAD Neurological: Normal speech, Normal tone Lymphatics: No axilla or inguinal lymphadenopathy External genitalia: Deferred Rectal: Deferred - Studies Laboratory Data (last 24 hrs) 02/08/24 02/08/24 02/08/24 14:39 14:39 14:39 WBC 9.80 Hgb 13.3 L Hct 39.5 L Plt Count 301 PT 22.6 H INR 2.06 APTT 43.6 H Sodium 138 Potassium 4.3 BUN 23 H Creatinine 1.29 Glucose 142 H Total Bilirubin 0.8 AST 11 L ALT < 14 L Alkaline Phosphatase 94 Assessment and Plan Cellulitis Hx of IDDM, CAD, CHF, A. fib (NSR now with prolonged QTc), Plan: 1. Continue IV antibiotics 2. Continue with local wound care 3. Wound care consultation/surgical consultation - Dr. Kendrick (done), discussed lab values and increased INR 4. Gentle IV hydration 5. Monitor and trend labs 6. Strict blood sugar monitoring 7. Pain control 8. GI and DVT prophylaxis 02/10/24 pt went to OR for gentle debridement per Dr. Kendrick, using Santyl for now, recommends pt follow up in wound care in one week probable discharge in am INR elevation/prolonged bleeding times with hematuria eval possible causes, discuss with surgery for any debridement planning INR trending down continue home medications for Chronic medical problems - Advance Directives Does patient have a Living Will: No Does patient have a Durable POA for Healthcare: No - Code Status/Comfort Care Code Status Assessed: Yes (Full) Code Status: Full Code Critical Care: No
--- NOTE | 2024-02-10 22:25 | OP ---
Date of Procedure: 02/10/2024 Surgeon: Dimas Kendrick MD Preoperative Diagnosis: Infected diabetic ulcer, right leg and foot. Postoperative Diagnosis: Infected diabetic ulcer, right leg and foot. Procedure: Excisional subcutaneous debridement of right leg and foot infected ulcers. 1.Right lateral foot, 5 x 3 cm. 2.Right dorsal foot, 7.5 x 2 cm. 3.Right anterior leg, 2 x 2 cm. 4.Right distal leg, 5 x 2 cm. 5.Right medial leg, 4 x 3 cm. Specimen: Necrotic tissue. Findings: Necrotic ulcers. Estimated Blood Loss: Less than 10 cc. Anesthesia: MAC plus local anesthetic. Indications: This is a case of a 78-year-old patient who has history of diabetes, now with infected ulcers. He is trying to treat them himself, but he has been making some dressing changes and applica tions that are not ideal, contributing to this problem at this moment. He is trying to do his best w ith that. We advised him to let us help him with that. The benefits, alternatives, and risks of gloria ridement were fully explained, which include, but not limited to infection, bleeding, damage to adjac ent structures, anesthesia complication, recurrence, [place], and even . He also understands this ma y not relieve any symptoms. He might need more than one surgical intervention. He was advised the i mportance of vascular check. He follows regularly with Dr. Pineda, our rubber cutter and shape carver, who does not on ly check his heart, but also his extremity circulation. We advised him once again to make sure he is following up on that. From the surgical standpoint, we are going to clean this area. We expect him to come to our office to the [facility] for continuation of care. Obviously, we expect him to vis it his primary doctor for his diabetes control. He signed a consent. The areas of concern were dahlia ed previously. Description Of Procedure: The patient was brought to the operating room, placed in supine position. A time-out was called. Anesthesia was done without complication. Local anesthesia was applied afte r time-out. We proceeded to do each debridement in size as above using same technique, which consist ed of local anesthetic, sharp incision of the necrotic tissue, debridement, irrigation, hemostasis, a nd then covered the area with Santyl. It was done for right lateral foot, right dorsal foot, right a nterior leg, right leg distal and right medial leg. The patient tolerated the procedure well. Area was covered with sterile dressings. The patient was sent to recovery in stable condition. JUAN CARLOS/FRANCY Voice ID: [id number] Report ID: [id number]
[2024-02-10] MEDS ORDERED: GUAIFENESIN/CODEINE 5ML UCUP PO PRN (22:48)
[2024-02-10] MEDS: GUAIFENESIN/DM 5 ML UCUP PO PRN (23:00)
[2024-02-11 04:52] LABS: Absolute Eosinophils 0.3 K/uL (0-0.5); Absolute Monocytes 0.8 K/uL (0.1-1.3); Absolute Neutrophil 6.4 K/uL (1.8-8.0); Basophils % 0.5 % (0-1.3); Eosinophils % 3.3 % (0-4.4); Hematocrit 36.4 % (39.6-49.0); Hemoglobin 11.7 g/dL (13.6-17.9); Lymphocytes % 11.3 % (15.3-44.8); MCH 27.7 pg (27.0-35.0); MCHC 32.3 g/dL (32.0-36.0); MCV 85.7 fL (80-100); MPV 7.5 fL (7.6-11.3); Monocytes % 9.6 % (3.3-12.3); Neutrophils % 75.3 % (41.7-73.7); Platelets 264 thou/uL (152-406); RBC Red Blood Cell Count 4.24 M/uL (4.33-5.43); Red Cell Distribution Width 13.2 % (12.1-15.2)
[2024-02-11 04:54] LABS: PT Prothrombin Time 28.9 SECONDS (9.4-12.5); PTT, Activated Partial Thromb 43.6 SECONDS (24.3-36.9); Protime INR 2.65
[2024-02-11 05:09] LABS: ALT/SGPT < 14 U/L (16-61); AST/SGOT 15 U/L (15-37); Albumin 2.5 g/dL (3.4-5.0); Albumin/Globulin Ratio 0.6 (1.1-1.8); Alkaline Phosphatase 73 U/L (45-117); Anion Gap 8.2 mEq/L (5.0-15.0); BUN Blood Urea Nitrogen 20 mg/dL (7-18); Bicarbonate 25 mEq/L (21-32); Bilirubin Total 0.8 mg/dL (0.2-1.0); Globulin 3.9 g/dL (2.3-3.5); Glomerular Filtration Rate 72 ml/min (=/>90); Glucose Level 149 mg/dL (74-106); Magnesium 1.9 mg/dL (1.6-2.4); Potassium 4.2 mEq/L (3.5-5.1); Protein, Total 6.4 g/dL (6.4-8.2); Sodium Level 140 mEq/L (136-145)
[2024-02-11 09:54] VITALS: O2SAT 96
[2024-02-11 12:04] VITALS: BP 124/65; TEMP 98.7
[2024-02-11 22:20] LABS: Anti-Cardiolipin IgG Antibody <2.0 GPL-U/mL (<20.0); Anti-Cardiolipin IgM Antibody <2.0 MPL-U/mL (<20.0); Beta-2-Glycoprotein I IgA <2.0 U/mL (<20.0); Beta-2-Glycoprotein I IgG <2.0 U/mL (<20.0); Beta-2-Glycoprotein I IgM <2.0 U/mL (<20.0); Phosphatidylser & Prothrom IgG 23 U (<=30); Phosphatidylser & Prothrom IgM 12 U (<=30)
[2024-02-12 10:36] LABS: Factor VIII Activity, Clotting 107 % normal (50-180)
== END 2024-02-11 14:03 | disposition home or self-care (01) | DRG 264 ==
LOC: ER 13:51 → ERHOLD 18:46 → 2ND 20:03 → 4TH 02-09 13:12 → 2ND 02-09 13:12
PROVIDERS: ADMIT Hospitalist; ATTEND Internal Medicine
PROC: 0JBN0ZZ Excision of Right Lower Leg Subcutaneous Tissue and Fascia, Open Approach (ICD-10-PCS; 2024-02-10)
PROC: 0JBQ0ZZ Excision of Right Foot Subcutaneous Tissue and Fascia, Open Approach (ICD-10-PCS; principal; 2024-02-10 11:00)
DX: E11.52 Type 2 diabetes mellitus with diabetic peripheral angiopathy with gangrene (principal); L03.115 Cellulitis of right lower limb; I13.0 Hypertensive heart and chronic kidney disease with heart failure and stage 1 through stage 4 chronic kidney disease, or unspecified chronic kidney disease; I50.22 Chronic systolic (congestive) heart failure; N18.30 Chronic kidney disease, stage 3 unspecified; E11.22 Type 2 diabetes mellitus with diabetic chronic kidney disease; E11.621 Type 2 diabetes mellitus with foot ulcer; L97.519 Non-pressure chronic ulcer of other part of right foot with unspecified severity; D63.1 Anemia in chronic kidney disease; E78.5 Hyperlipidemia, unspecified; N40.1 Benign prostatic hyperplasia with lower urinary tract symptoms; I48.91 Unspecified atrial fibrillation; I25.10 Atherosclerotic heart disease of native coronary artery without angina pectoris; R31.9 Hematuria, unspecified; Z88.5 Allergy status to narcotic agent; Z85.46 Personal history of malignant neoplasm of prostate; Z79.01 Long term (current) use of anticoagulants; Z79.4 Long term (current) use of insulin; Z79.84 Long term (current) use of oral hypoglycemic drugs; Z79.899 Other long term (current) drug therapy; Z89.612 Acquired absence of left leg above knee
CPT/HCPCS: 36415; 80053; 80061; 80143; 80202; 81001; 82947; 83735; 85025; 85240; 85610; 85730; 87040; 87070; 87077; 87186; 87205; 88304; 93005; 93926; 96365; 96367; 99285; J0692; J2003; J2250; J2470; J2704; J3010; J3590; J7030; J7040; J7050

== ENCOUNTER 2024-04-30 07:21 | Emergency (ER) | payer BC, OTHER ==
[2024-04-30 07:48] LABS: Absolute Basophils 0.1 K/uL (0-0.5); Absolute Eosinophils 0.1 K/uL (0-0.5); Absolute Lymphocytes (CBC) 0.9 K/uL (0.7-4.9); Absolute Monocytes 0.9 K/uL (0.1-1.3); Absolute Neutrophil 7.3 K/uL (1.8-8.0); Basophils % 0.6 % (0-1.3); Eosinophils % 1.5 % (0-4.4); Hematocrit 33.8 % (39.6-49.0); Lymphocytes % 9.7 % (15.3-44.8); MCH 26.5 pg (27.0-35.0); MCHC 32.4 g/dL (32.0-36.0); MCV 81.6 fL (80-100); Monocytes % 9.7 % (3.3-12.3); Neutrophils % 78.5 % (41.7-73.7); Platelets 364 thou/uL (152-406); RBC Red Blood Cell Count 4.15 M/uL (4.33-5.43); Red Cell Distribution Width 15.4 % (12.1-15.2)
[2024-04-30 08:05] LABS: Anion Gap 6.8 mEq/L (5.0-15.0); Potassium 4.8 mEq/L (3.5-5.1)
[2024-04-30 08:18] LABS: SARS-CoV-2 Antigen CONTROL BLUE LINE VIS/BG OK; SARS-CoV-2 Antigen Rapid Res Negative (Negative)
--- NOTE | 2024-04-30 09:47 | RAD REPORT ---
EXAM: Chest Single View HISTORY: COUGH COMPARISON: 03/23/2023 FINDINGS: LUNGS/PLEURA: Increasing interstitial thickening bilaterally. No focal consolidation. MEDIASTINUM: The mediastinal silhouette is within normal limits. CARDIAC: Moderate cardiomegaly. UPPER ABDOMEN: No significant abnormality. BONES: Sternotomy. No acute abnormality. LINES/TUBES/OTHER: N/A IMPRESSION: Increased prominence of pulmonary interstitium probably reflecting increased pulmonary edema. A super imposed infectious process would be difficult to exclude radiographically.
--- NOTE | 2024-04-30 10:19 | ER ---
Nurse's Notes [facility] Name: Navjot Collins Age: 78 yrs Sex: Male : 1945 Arrival Date: 04/30/2024 Time: 07:21 Bed 18 Private MD: Diagnosis: Viral infection, unspecified Presentation: 04/30 07:31 Chief complaint: EMS states: N/V/D x 3-4 days. Pt reports he has a lot going on ss emotionally and with his health and has not been sleeping very well. Wound vac noted to RLE. Coronavirus screen: Client denies travel out of the [place] in the last 14 days. Ebola Screen: Patient denies exposure to infectious person. Patient denies travel to an Ebola-affected area in the 21 days before illness onset. Initial Sepsis Screen: Does the patient meet any 2 criteria? No. Patient's initial sepsis screen is negative. Does the patient have a suspected source of infection? No. Patient's initial sepsis screen is negative. Risk Assessment: Do you want to hurt yourself or someone else? Patient reports no desire to harm self or others. Onset of symptoms is unknown. Care prior to arrival: Medication(s) given: Normal saline infusion, 300 mL zofran 4 mg, IV initiated. 20 GA, in the right forearm, Glucose check: 355. 07:31 Method Of Arrival: EMS: [facility] 07:31 Acuity: ZENAIDA 3 ss Historical: - Allergies: 07:35 Codeine; ss 07:35 Demerol; ss 07:35 fedrazil; ss 07:35 Vicodin; ss - PMHx: 07:35 Atrial Fib; CAD; CHF; Diabetes - IDDM; HTN; PROSTATE CA; ss - PSHx: 07:35 Amputated below knee; Bladder; Coronary artery bypass graft; prostate; Stented artery; ss - Immunization history:: Client reports having NOT received the Covid vaccine. - Infectious Disease History:: Denies. - Social history:: Smoking status: Patient denies any tobacco usage or history of. Screenin:[facility] ED Fall Risk Assessment (Adult) History of falling in the last 3 months, ll1 including since admission No falls in past 3 months (0 pts) Confusion or Disorientation No (0 pts) Intoxicated or Sedated No (0 pts) Impaired Gait Yes (1 pt) Mobility Assist Device Used Yes (1 pt) Altered Elimination Yes (1 pt) Score/Fall Risk Level 3 or more points = High Risk Maintained a safe environment, Hourly rounding (assess needs \T\ fall precautionary measures) done, Remained with patient while ambulating. Abuse screen: Denies threats or abuse. Nutritional screening: No deficits noted. Tuberculosis screening: No symptoms or risk factors identified. Assessment: 07:42 General: Appears in no apparent distress. Behavior is calm, cooperative, appropriate ll1 for age, Reports fatigue for. Pain: Denies pain. Neuro: Reports weakness. Respiratory: Reports cough that is. GI: Reports cramping, diarrhea, nausea, vomiting. 09:32 Reassessment: Patient and/or family updated on plan of care and expected duration. Pain ll1 level reassessed. 10:43 Reassessment: No changes from previously documented assessment. Patient and/or family ll1 updated on plan of care and expected duration. Pain level reassessed. Patient is alert, oriented x 3, equal unlabored respirations, skin warm/dry/pink. 10:44 Reassessment: Radha echeverria and kalpesh called into [facility] in , ok'd by Dr. Asher. ll1 10:45 GI: Abdomen is flat. ll1 Vital Signs: 07:31 BP 100 / 56; Pulse 57; Resp 17; Temp 98.2(O); Pulse Ox 98% on R/A; Weight 86.18 kg; ss Height 6 ft. 0 in. ; Pain 0/10; 07:40 BP 104 / 52; Pulse 58; Resp 17; Pulse Ox 100% ; ll1 10:45 BP 122 / 69; Pulse 55; Resp 16; Pulse Ox 100% on R/A; Pain 0/10; ll1 07:31 Body Mass Index 25.77 (86.18 kg, 182.88 cm) ss 07:31 Pain Scale: Adult ss 10:45 Pain Scale: Adult ll1 ED Course: 07:27 Patient arrived in ED. ec2 07:27 Yan Asher MD is Attending Physician. ec2 07:28 Malena Tovar RN is Primary Nurse. ll1 07:35 Triage completed. ss 07:35 Arm band placed on right wrist. ss 07:42 Maintain EMS IV. Dressing intact. Good blood return noted. Site clean \T\ dry. Gauge \T\ ll 1 site: 20 R AC. Flushed with 10 mL NS IV is patent, is intact, with fluids infusing freely, with good blood return. 07:43 Initial lab(s) drawn, by me, sent to lab. COVID swab sent to lab. Flu and/or RSV swab ll1 sent to lab. 07:52 Patient has correct armband on for positive identification. Provided Education on: ER ll1 procedures and process. 09:35 Door closed. Lights dimmed. Warm blanket given. ll1 09:42 CXR XRAY In Process Unspecified. EDMS 10:45 No provider procedures requiring assistance completed. IV discontinued, intact, ll1 bleeding controlled, No redness/swelling at site. Pressure dressing applied. Administered Medications: 07:41 Drug: NS 0.9% IV 1000 ml IV at 1000 ml once; to be given as a bolus over 60 minutes ll1 Route: IV; Rate: 1000 ml; Site: right antecubital; 09:44 Follow up: Response: No adverse reaction; IV Status: Completed infusion; IV Intake: ll1 1000ml Medication: 07:52 VIS not applicable for this client. ll1 Intake: 09:44 IV: 1000ml; Total: 1000ml. ll1 Outcome: 10:18 Discharge ordered by . ec2 10:45 Discharged to home via wheelchair, ll1 10:45 Condition: stable 10:45 Discharge instructions given to patient, Instructed on discharge instructions, follow up and referral plans. medication usage, Demonstrated understanding of instructions, follow-up care, medications, Prescriptions given X 2, 11:33 Patient left the ED. ll1 Signatures: Dispatcher [employer] EDMadeline Gonzalez, JUDE RN Malena Latham RN RN ll1 Yan Asher MD MD ec2
--- NOTE | 2024-04-30 10:19 | EDPHYS ---
Physician Documentation [facility] Name: Navjot Collins Age: 78 yrs Sex: Male : 1945 Arrival Date: 04/30/2024 Time: 07:21 Bed 18 Private MD: ED Physician Yan Asher HPI: 04/30 10:14 This 78 yrs old Male presents to ER via EMS with complaints of ec2 Nausea/Vomiting/Diarrhea, fatigue. 10:14 Patient arrives today for evaluation of nausea and vomiting and diarrhea. Reports that ec2 he has been feeling unwell, has been having increased fatigue along with malaise.. Historical: - Allergies: 07:35 Codeine; ss 07:35 Demerol; ss 07:35 fedrazil; ss 07:35 Vicodin; ss - PMHx: 07:35 Atrial Fib; CAD; CHF; Diabetes - IDDM; HTN; PROSTATE CA; ss - PSHx: 07:35 Amputated below knee; Bladder; Coronary artery bypass graft; prostate; Stented artery; ss - Immunization history:: Client reports having NOT received the Covid vaccine. - Infectious Disease History:: Denies. - Social history:: Smoking status: Patient denies any tobacco usage or history of. ROS: 10:15 Constitutional: as per hpi ec2 Exam: 10:15 Constitutional: GEN: NAD Head: atraumatic Eyes: EOMI Ears: External ears are ec2 normal. CV: regular rate LUNGS: no respiratory distress ABD: non-distended SKIN: no evidence of rashes MSK: no evidence of trauma Vital Signs: 07:31 BP 100 / 56; Pulse 57; Resp 17; Temp 98.2(O); Pulse Ox 98% on R/A; Weight 86.18 kg; ss Height 6 ft. 0 in. ; Pain 0/10; 07:40 BP 104 / 52; Pulse 58; Resp 17; Pulse Ox 100% ; ll1 10:45 BP 122 / 69; Pulse 55; Resp 16; Pulse Ox 100% on R/A; Pain 0/10; ll1 07:31 Body Mass Index 25.77 (86.18 kg, 182.88 cm) ss 07:31 Pain Scale: Adult ss 10:45 Pain Scale: Adult ll1 MDM: 07:27 Medical Screening Exam initiated ec2 10:15 Data reviewed: vital signs, nurses notes. ED course: . ec2 10:15 ED course: Patient arrives today for evaluation of NVD. Examination is unrevealing. Lab ec2 work is reassuring, chest x-ray shows possible volume overload versus possible infectious process. I favor viral process given the patient's constellation of symptoms. No evidence of lobar pneumonia, patient without urinary complaints indicate UTI at this time.. 04/30 07:27 Order name: CBC with Diff; Complete Time: 08:42 ec2 04/30 07:27 Order name: BMP; Complete Time: 08:42 ec2 04/30 07:27 Order name: Influenza Screen (a \T\ B); Complete Time: 08:54 ec2 04/30 07:27 Order name: SARS RAPID; Complete Time: 08:42 ec2 04/30 08:43 Order name: CXR XRAY; Complete Time: 10:14 ec2 04/30 07:27 Order name: IV; Complete Time: 07:41 ec2 Administered Medications: 07:41 Drug: NS 0.9% IV 1000 ml IV at 1000 ml once; to be given as a bolus over 60 minutes ll1 Route: IV; Rate: 1000 ml; Site: right antecubital; 09:44 Follow up: Response: No adverse reaction; IV Status: Completed infusion; IV Intake: ll1 1000ml Disposition Summary: 04/30/24 10:18 Discharge Ordered Notes: Location: Home ec2 Condition: Stable ec2 Diagnosis - Viral infection, unspecified ec2 Followup: ec2 - With: Private Physician - When: - Reason: Re-evaluation by your physician Discharge Instructions: - Discharge Summary Sheet ec2 - Viral Illness, Adult ec2 Forms: - Medication Reconciliation Form ec2 - Antibiotic Education ec2 - Prescription Opioid Use ec2 - Patient Portal Instructions ec2 - Leadership Thank You Letter ec2 Prescriptions: - Zofran 4 mg Oral Tablet - take 1 tablet ORAL route every 12 hours As needed; 20 tablet; Refills: 0, ec2 Product Selection Permitted - Tessalon Perles 100 mg Oral Capsule - take 1 capsule ORAL route every 8 hours As needed; 15 capsule; Refills: 0, ec2 Product Selection Permitted Signatures: Dispatcher MedWest [facility] HospitalMadeline Gonzalez RN RN Malena Tovar RN RN ll1 Yan Asher MD MD ec2 Corrections: (The following items were deleted from the chart) 07: 07:28 CBC+H.LAB.BRZ ordered. EDMS EDMS 07:28 BASIC METABOLIC PANEL+C.LAB.BRZ ordered. EDMS EDMS 07:28 Influenza Screen (A \T\ B)+BA.LAB.BRZ ordered. EDMS EDMS 07:28 SARS-COV-2 Antigen Rapid+I.LAB.BRZ ordered. EDMS EDMS 07:28 Urinalysis W/Microscopic+U.LAB.BRZ ordered. EDMS EDMS
[2024-04-30 11:37] VITALS: TEMP 98.2; O2SAT 100
[2024-04-30 11:39] VITALS: BP 122/69
== END 2024-04-30 11:33 | disposition home or self-care (01) ==
LOC: ER 07:21
DX: B34.9 Viral infection, unspecified (principal); Z11.52 Encounter for screening for COVID-19; Z95.1 Presence of aortocoronary bypass graft
CPT/HCPCS: 36415; 71045; 80048; 85025; 87804; 87811; 96360; 96361; 99284

== ENCOUNTER 2024-05-02 11:00 | Emergency (ER) | payer BC, OTHER ==
[2024-05-02] MEDS ORDERED: NA CHLORIDE 0.9% 500 ML ONE (12:28)
[2024-05-02 12:30] LABS: Absolute Eosinophils 0.1 K/uL (0-0.5); Absolute Lymphocytes (CBC) 0.9 K/uL (0.7-4.9); Absolute Neutrophil 6.8 K/uL (1.8-8.0); Basophils % 0.5 % (0-1.3); Eosinophils % 1.3 % (0-4.4); Hematocrit 35.4 % (39.6-49.0); Hemoglobin 11.9 g/dL (13.6-17.9); Lymphocytes % 10.7 % (15.3-44.8); MCH 26.8 pg (27.0-35.0); MCHC 33.5 g/dL (32.0-36.0); MCV 80.1 fL (80-100); Monocytes % 11.1 % (3.3-12.3); Neutrophils % 76.4 % (41.7-73.7); Platelets 372 thou/uL (152-406); RBC Red Blood Cell Count 4.42 M/uL (4.33-5.43)
[2024-05-02 12:43] LABS: Albumin 2.9 g/dL (3.4-5.0); Albumin/Globulin Ratio 0.7 (1.1-1.8); Anion Gap 8.3 mEq/L (5.0-15.0); Bilirubin Direct 0.3 mg/dL (0-0.2); Bilirubin Indirect, Calculated 0.4 mg/dL (0.2-0.8); Bilirubin Total 0.7 mg/dL (0.2-1.0); Globulin 4.4 g/dL (2.3-3.5); Potassium 4.3 mEq/L (3.5-5.1); Protein, Total 7.3 g/dL (6.4-8.2); Troponin High Sensitivity 31.3 pg/mL (<58.9)
--- NOTE | 2024-05-02 14:06 | RAD REPORT ---
EXAM: Chest Single View HISTORY: COUGH COMPARISON: 04/30/2024. FINDINGS: LUNGS/PLEURA: Similar widespread interstitial prominence. MEDIASTINUM: Stable configuration CARDIAC: Stable cardiomegaly and configuration. UPPER ABDOMEN: No significant abnormality. BONES: No acute abnormality. LINES/TUBES/OTHER: N/A IMPRESSION: Findings remain most consistent with pulmonary edema without significant change from prior.
--- NOTE | 2024-05-02 14:32 | EDPHYS ---
Physician Documentation [facility] Name: Navjot Collins Age: 78 yrs Sex: Male : 1945 Arrival Date: 05/02/2024 Time: 11:00 Bed 18 Private MD: ED Physician Lazaro Butler HPI: 05/02 12:12 This 78 yrs old Male presents to ER via Wheelchair with complaints of Weakness. rt 12:12 Patient presents to the ED with cough, congestion, worse overnight. Was seen in the ER rt recently, had a negative workup, subsequently discharged. The patient states that generally does not feel well. He denies other acute complaints at this time, symptoms are mild in severity, no other aggravating or alleviating factors.. Historical: - Allergies: 11:20 Codeine; aa5 11:20 Demerol; aa5 11:20 fedrazil; aa5 11:20 Vicodin; aa5 - PMHx: 11:20 Atrial Fib; CAD; CHF; Diabetes - IDDM; HTN; PROSTATE CA; Right foot wound with wound aa5 vac in place (Unknown); - PSHx: 11:20 Bladder; Coronary artery bypass graft; prostate; Stented artery; aa5 11:22 Left BKA; aa5 - Immunization history:: Adult Immunizations unknown. - Infectious Disease History:: Denies. - Social history:: Smoking status: Patient denies any tobacco usage or history of. - Family history:: not pertinent. ROS: 12:12 Constitutional: Negative for fever, chills, and weight loss, Cardiovascular: Negative rt for chest pain, palpitations, and edema, Abdomen/GI: Negative for abdominal pain, nausea, vomiting, diarrhea, and constipation, MS/Extremity: Negative for injury and deformity, Skin: Negative for injury, rash, and discoloration, 12:12 ENT: Positive for rhinorrhea, Negative for sore throat, 12:12 Respiratory: Positive for cough, Negative for shortness of breath, Exam: 12:12 Constitutional: This is a well developed, well nourished patient who is awake, alert, rt and in no acute distress. Head/Face: Normocephalic, atraumatic. Chest/axilla: Normal chest wall appearance and motion. Nontender with no deformity. No lesions are appreciated. Cardiovascular: Regular rate and rhythm with a normal S1 and S2. No gallops, murmurs, or rubs. Normal PMI, no JVD. No pulse deficits. Respiratory: Lungs have equal breath sounds bilaterally, clear to auscultation and percussion. No rales, rhonchi or wheezes noted. No increased work of breathing, no retractions or nasal flaring. Abdomen/GI: Soft, non-tender, with normal bowel sounds. No distension or tympany. No guarding or rebound. No evidence of tenderness throughout. Skin: Warm, dry with normal turgor. Normal color with no rashes, no lesions, and no evidence of cellulitis. 12:12 Musculoskeletal/extremity: Left BKA noted, wound VAC on right lower extremity. 13:28 ECG was reviewed by the Attending Physician. rt Vital Signs: 11:18 BP 122 / 82; Pulse 71; Resp 16 S; Temp 97.7(TE); Pulse Ox 99% on R/A; Weight 86.18 kg aa5 (R); Height 6 ft. 2 in. (R); 13:45 BP 115 / 88; Pulse 85; Resp 16; Pulse Ox 100% ; bp 15:15 BP 110 / 73; Pulse 55; Resp 15; Pulse Ox 99% ; bp 11:18 Body Mass Index 24.39 (86.18 kg, 187.96 cm) aa5 MDM: 11:59 Medical Screening Exam initiated rt 17:23 Data reviewed: Cough, viral syndrome, pulmonary edema. Consideration of rt Admission/Observation Escalation of care including admission/observation considered. Patient initially asked for IV fluids, given gentle hydration, he believes that he was dehydrated, with poor p.o. intake and dry mouth. He is found to have pulmonary edema, however, was never hypoxic in the emergency department, will give a dose of Lasix. Patient has torsemide at home but states that he only takes it as needed and is not been taking it for some time. I recommended that the patient's start taking his torsemide. No indications for admission at this time, stable for outpatient care.. I considered the following discharge prescriptions or medication management in the emergency department Medications were administered in the Emergency Department. See MAR. Independent interpretation of the following test(s) in the Emergency Department X-Ray: My interpretation is Edema seen on my interpretation of x-ray images. Care significantly affected by the following chronic conditions: Atrial fibrillation, CHF. Counseling: I had a detailed discussion with the patient and/or guardian regarding the historical points, exam findings, and any diagnostic results supporting the discharge/admit diagnosis, lab results, radiology results, the need for outpatient follow up, to return to the emergency department if symptoms worsen or persist or if there are any questions or concerns that arise at home. Response to treatment: the patient's symptoms have mildly improved after treatment. 05/02 12:07 Order name: Basic Metabolic Panel; Complete Time: 12:46 rt 05/02 12:07 Order name: CBC with Diff; Complete Time: 12:46 rt 05/02 12:07 Order name: LFT's; Complete Time: 12:46 rt 05/02 12:07 Order name: NT PRO-BNP; Complete Time: 12:46 rt 05/02 12:07 Order name: Troponin HS; Complete Time: 12:46 rt 05/02 12:07 Order name: XRAY Chest (1 view); Complete Time: 14:10 rt 05/02 12:07 Order name: EKG; Complete Time: 12:08 rt 05/02 12:07 Order name: Cardiac monitoring; Complete Time: 13:25 rt 05/02 12:07 Order name: EKG - Nurse/Tech; Complete Time: 13:25 rt 05/02 12:07 Order name: IV Saline Lock; Complete Time: 12:14 rt 05/02 12:07 Order name: Labs collected and sent; Complete Time: 12:14 rt 05/02 12:07 Order name: O2 Per Protocol; Complete Time: 12:54 rt 05/02 12:07 Order name: O2 Sat Monitoring; Complete Time: 12:54 rt EC:28 Rate is 51 beats/min. Rhythm is regular, 1st Degree Block with No ectopy. Right axis rt deviation noted. RI interval is normal. QRS interval is normal. QT interval is normal. No Q waves. No ST changes noted. Interpreted by me. Administered Medications: 12:41 Drug: NS 0.9% IV 500 ml 500 ml IV at 1 bolus once; to be given as a bolus over 30 me1 minutes Volume: 500 ml; Route: IV; Rate: 1 bolus; Site: right forearm; 15:16 Follow up: IV Status: Completed infusion bp 15:02 Drug: Furosemide IVP 40 mg IVP once; give over 2 minutes Route: IVP; Site: right bp forearm; 15:02 Follow up: Response: No adverse reaction bp Disposition Summary: 05/02/24 14:31 Discharge Ordered Notes: Location: Home rt Problem: new rt Symptoms: have improved rt Condition: Stable rt Diagnosis - Pulmonary edema rt Followup: rt - With: Private Physician - When: 2 - 3 days - Reason: Discharge Instructions: - Discharge Summary Sheet rt - Heart Failure Action Plan rt - Heart Failure Exacerbation rt - Heart Failure Eating Plan rt Forms: - Medication Reconciliation Form rt - Antibiotic Education rt - Prescription Opioid Use rt - Patient Portal Instructions rt - Leadership Thank You Letter rt Signatures: Dispatcher [employer] Eleonora Bishop RN RN aa5 Albert Senior RN RN bp Lazaro Butler MD MD rt Mona Nicole RN RN me1 Corrections: (The following items were deleted from the chart) 11:22 11:20 PSHx: Amputated below knee; aa5 aa5
--- NOTE | 2024-05-02 14:32 | ER ---
Nurse's Notes [facility] Name: Navjot Collins Age: 78 yrs Sex: Male : 1945 Arrival Date: 05/02/2024 Time: 11:00 Bed 18 Private MD: Diagnosis: Pulmonary edema Presentation: 05/02 11:18 Chief complaint: Patient states: "I just don't feel good, I had some nausea last week, aa5 and my good friend on Thursday so I haven't been able to sleep much". Coronavirus screen: At this time, the client does not indicate any symptoms associated with coronavirus-19. Ebola Screen: Patient denies travel to an Ebola-affected area in the 21 days before illness onset. Onset of symptoms was April 2024. 11:18 Method Of Arrival: Wheelchair aa5 11:18 Acuity: ZENAIDA 3 aa5 11:18 Initial Sepsis Screen: Does the patient meet any 2 criteria? No. Patient's initial aa5 sepsis screen is negative. Does the patient have a suspected source of infection? No. Patient's initial sepsis screen is negative. Risk Assessment: Do you want to hurt yourself or someone else? Patient reports no desire to harm self or others. Triage Assessment: 11:20 General: Appears in no apparent distress. comfortable, Behavior is calm, cooperative, bp appropriate for age. Pain: Denies pain. EENT: No deficits noted. Neuro: No deficits noted. Cardiovascular: No deficits noted. Respiratory: Reports shortness of breath. GI: No signs and/or symptoms were reported involving the gastrointestinal system. : No signs and/or symptoms were reported regarding the genitourinary system. Derm: No deficits noted. Musculoskeletal: No deficits noted. Historical: - Allergies: 11:20 Codeine; aa5 11:20 Demerol; aa5 11:20 fedrazil; aa5 11:20 Vicodin; aa5 - PMHx: 11:20 Atrial Fib; CAD; CHF; Diabetes - IDDM; HTN; PROSTATE CA; Right foot wound with wound aa5 vac in place (Unknown); - PSHx: 11:20 Bladder; Coronary artery bypass graft; prostate; Stented artery; aa5 11:22 Left BKA; aa5 - Immunization history:: Adult Immunizations unknown. - Infectious Disease History:: Denies. - Social history:: Smoking status: Patient denies any tobacco usage or history of. - Family history:: not pertinent. Screenin:55 [facility] ED Fall Risk Assessment (Adult) History of falling in the last 3 months, me1 including since admission No falls in past 3 months (0 pts) Confusion or Disorientation No (0 pts) Intoxicated or Sedated No (0 pts) Impaired Gait Yes (1 pt) Mobility Assist Device Used Yes (1 pt) Altered Elimination No (0 pt) Score/Fall Risk Level 0 - 2 = Low Risk Maintained a safe environment, Provided non-skid footwear, Hourly rounding (assess needs \\T\\ fall precautionary measures) done. Abuse screen: Denies threats or abuse. Nutritional screening: No deficits noted. Tuberculosis screening: No symptoms or risk factors identified. Assessment: 12:55 General: Appears in no apparent distress. well groomed, well developed, well nourished, me1 Behavior is calm, cooperative, appropriate for age, Reports "I just don't feel good, I had some nausea last week, and my good friend on Thursday so I haven't been able to sleep much". Patient does have a wound vac to a chronic wound on right foot. Pain: Denies pain. Neuro: Level of Consciousness is awake, alert, obeys commands, Oriented to person, place, time, situation, Appropriate for age. Neuro: Reports insomnia. Cardiovascular: Patient's skin is warm and dry. Respiratory: Airway is patent Respiratory effort is even, unlabored, Respiratory pattern is regular, symmetrical. GI: Reports nausea, last week. GI:. : No signs and/or symptoms were reported regarding the genitourinary system. EENT: No signs and/or symptoms were reported regarding the EENT system. Derm: Wound noted right foot Wound is chronic wound. Musculoskeletal: Amputation of left leg. 15:15 Reassessment: Patient appears in no apparent distress at this time. Patient is alert, bp oriented x 3, equal unlabored respirations, skin warm/dry/pink. Vital Signs: 11:18 BP 122 / 82; Pulse 71; Resp 16 S; Temp 97.7(TE); Pulse Ox 99% on R/A; Weight 86.18 kg aa5 (R); Height 6 ft. 2 in. (R); 13:45 BP 115 / 88; Pulse 85; Resp 16; Pulse Ox 100% ; bp 15:15 BP 110 / 73; Pulse 55; Resp 15; Pulse Ox 99% ; bp 11:18 Body Mass Index 24.39 (86.18 kg, 187.96 cm) aa5 ED Course: 11:03 Patient arrived in ED. al6 11:04 Lazaro Butler MD is Attending Physician. rt 11:18 Arm band placed on. aa5 11:19 Triage completed. aa5 11:59 Albert Senior, RN is Primary Nurse. bp 12:14 Basic Metabolic Panel Sent. bc6 12:14 CBC with Diff Sent. bc6 12:14 LFT's Sent. bc6 12:14 NT PRO-BNP Sent. bc6 12:14 Troponin HS Sent. bc6 12:14 Initial lab(s) drawn, by me, sent to lab. Inserted saline lock: 20 gauge in right bc6 forearm, using aseptic technique. Blood collected. Flushed with 10 mL NS. 12:55 Patient has correct armband on for positive identification. Bed in low position. Call me1 light in reach. Side rails up X2. Provided Education on: POC. Verbalized understanding.. 12:55 No provider procedures requiring assistance completed. me1 13:53 XRAY Chest (1 view) In Process Unspecified. EDMS 15:15 IV discontinued, intact, bleeding controlled, No redness/swelling at site. Pressure bp dressing applied. Administered Medications: 12:41 Drug: NS 0.9% IV 500 ml 500 ml IV at 1 bolus once; to be given as a bolus over 30 me1 minutes Volume: 500 ml; Route: IV; Rate: 1 bolus; Site: right forearm; 15:16 Follow up: IV Status: Completed infusion bp 15:02 Drug: Furosemide IVP 40 mg IVP once; give over 2 minutes Route: IVP; Site: right bp forearm; 15:02 Follow up: Response: No adverse reaction bp Medication: 12:55 VIS not applicable for this client. me1 Outcome: 14:31 Discharge ordered by . rt 15:15 Discharged to home via wheelchair, bp 15:15 Condition: stable 15:15 Discharge instructions given to patient, Instructed on discharge instructions, follow up and referral plans. Demonstrated understanding of instructions, follow-up care, 15:16 Patient left the ED. bp Signatures: Dispatcher [employer] Eleonora Bishop RN RN aa5 Albert Senior RN RN bp Lazaro Butler MD MD rt Georgina Yarbrough 6 Mona Nicole RN RN me1 Suzy Johnson al6 Corrections: (The following items were deleted from the chart) 11:22 11:20 PSHx: Amputated below knee; aa5 aa5 12:55 11:18 Chief complaint: Patient states: "I just don't feel good, I had some nausea last me1 week, and my good friend on Thursday so I haven't been able to sleep much". aa5
[2024-05-02] MEDS ORDERED: FUROSEMIDE 40 MG/4 ML VIAL ONE (14:57)
[2024-05-02 16:21] VITALS: TEMP 97.7
[2024-05-02 16:23] VITALS: BP 110/73; O2SAT 99
--- NOTE | 2024-05-03 12:43 | EKG ---
Test Date: 2024-05-02 Test Time: 13:20:24 Pit Shovel Operator: BP MEASUREMENT RESULTS: Intervals: Rate: 51 HI: 248 QRSD: 104 QT: 520 QTc: 479 [place]: P: 39 HI: 248 QRS: 131 T: -40 INTERPRETIVE STATEMENTS: Sinus bradycardia with 1st degree AV block Right axis deviation Nonspecific T wave abnormality Prolonged QT Abnormal ECG Compared to ECG 02/08/2024 15:26:28 Right-axis deviation now present Sinus rhythm no longer present T-wave abnormality still present Electronically Signed On 05-03-24 12:41:14 HOT HEAD MACHINE OPERATOR by Joseph Flores
== END 2024-05-02 15:16 | disposition home or self-care (01) ==
LOC: ER 11:00
DX: J81.1 Chronic pulmonary edema (principal); I10 Essential (primary) hypertension; I50.9 Heart failure, unspecified; Z95.1 Presence of aortocoronary bypass graft; Z89.512 Acquired absence of left leg below knee
CPT/HCPCS: 93005; 85025; 80048; 36415; 80076; 84484; 83880; 71045; J1940; J7040; 96361; 96374; 99284

== ENCOUNTER 2024-05-18 11:56 | Inpatient (IN) | payer BC, OTHER ==
[2024-05-18] MEDS ORDERED: ONDANSETRON 4 MG (ODT) TAB ONE (12:33)
--- NOTE | 2024-05-18 12:53 | RAD REPORT ---
EXAMINATION: ONE VIEW CHEST XR CLINICAL INDICATION: COUGH TECHNIQUE: Frontal chest projection is submitted. Examination is limited by patient positioning and t echnique. COMPARISON: 05/02/2024 FINDINGS: Moderate bilateral pulmonary opacities, greater on the right, likely representing pneumonia or pulmon yina edema. The heart is significantly enlarged with changes of a prior CABG. No displaced fractures identified. IMPRESSION: Moderate bilateral pulmonary opacities, greater on the right, favored to represent pneumonia.
[2024-05-18 13:11] LABS: Absolute Eosinophils 0.1 K/uL (0-0.5); Absolute Lymphocytes (CBC) 0.7 K/uL (0.7-4.9); Absolute Neutrophil 6.2 K/uL (1.8-8.0); Basophils % 0.6 % (0-1.3); Eosinophils % 1.6 % (0-4.4); Hematocrit 33.6 % (39.6-49.0); MCH 25.8 pg (27.0-35.0); MCHC 32.8 g/dL (32.0-36.0); MCV 78.7 fL (80-100); MPV 7.1 fL (7.6-11.3); Monocytes % 12.3 % (3.3-12.3); Neutrophils % 76.5 % (41.7-73.7); Nucleated Red Blood Cells % 0.1 % (0-0); Platelets 296 thou/uL (152-406); RBC Red Blood Cell Count 4.27 M/uL (4.33-5.43); Red Cell Distribution Width 15.4 % (12.1-15.2)
[2024-05-18 13:33] LABS: AST/SGOT 11 U/L (15-37); Albumin 2.9 g/dL (3.4-5.0); Albumin/Globulin Ratio 0.7 (1.1-1.8); Alkaline Phosphatase 85 U/L (45-117); Anion Gap 10.8 mEq/L (5.0-15.0); BUN Blood Urea Nitrogen 38 mg/dL (7-18); Bicarbonate 24 mEq/L (21-32); Bilirubin Direct 0.2 mg/dL (0-0.2); Bilirubin Indirect, Calculated 0.5 mg/dL (0.2-0.8); Bilirubin Total 0.7 mg/dL (0.2-1.0); Globulin 4.4 g/dL (2.3-3.5); Glomerular Filtration Rate 54 ml/min (=/>90); Glucose Level 262 mg/dL (74-106); Influenza A Ag Negative; Influenza B Ag Negative; Magnesium 2.7 mg/dL (1.6-2.4); NT PRO-BNP 18835 pg/mL (<450); Potassium 4.8 mEq/L (3.5-5.1); Protein, Total 7.3 g/dL (6.4-8.2); SARS-CoV-2 Antigen Rapid Res Negative (Negative); Sodium Level 133 mEq/L (136-145); Troponin High Sensitivity 36.7 pg/mL (<58.9)
[2024-05-18 13:35] LABS: ALT/SGPT < 14 U/L (16-61)
[2024-05-18] MEDS ORDERED: AZITHROMYCIN 500 MG INJ IVPB ONE (14:33)
[2024-05-18] MEDS ORDERED: CEFTRIAXONE 2000 MG/VIAL ONE (14:33)
[2024-05-18] MEDS ORDERED: NA CHLORIDE 0.9% 100 ML ONE (14:34)
[2024-05-18] MEDS ORDERED: NA CHLORIDE 0.9% 250 ML ONE (14:34)
[2024-05-18] MEDS ORDERED: FUROSEMIDE 40 MG/4 ML VIAL ONE ×2 (14:34→17:14)
--- NOTE | 2024-05-18 14:35 | EDPHYS ---
Physician Documentation [facility] Name: Navjot Collins Age: 79 yrs Sex: Male : 1945 Arrival Date: 05/18/2024 Time: 11:56 Bed 5 Private MD: ED Physician Lazaro Butler HPI: 05/18 14:28 This 79 yrs old Male presents to ER via Wheelchair with complaints of Dehydration, rt Vomiting, Flu Symptoms. 14:29 Patient presents to the ED with cough, congestion for about 1 week. Has been taking rt [id number] cough relievers to no relief. Patient states he had nausea, vomiting today. Denies any chest pain, abdominal pain. Denies other acute complaints at this time, symptoms are moderate in severity, no other aggravating or alleviating factors.. Historical: - Allergies: 12:15 Codeine; db 12:15 fedrazil; db 12:15 Demerol; db 12:15 Vicodin; db - PMHx: 12:15 Atrial Fib; CAD; Diabetes - IDDM; HTN; PROSTATE CA; Right foot wound with wound vac in db place (Unknown); CHF; - PSHx: 12:15 Bladder; Coronary artery bypass graft; Left BKA; prostate; Stented artery; db - Immunization history:: Adult Immunizations unknown. - Infectious Disease History:: Denies. - Social history:: Smoking status: Patient denies any tobacco usage or history of. - Family history:: not pertinent. ROS: 14:29 Constitutional: Negative for fever, chills, and weight loss, Cardiovascular: Negative rt for chest pain, palpitations, and edema, MS/Extremity: Negative for injury and deformity, Skin: Negative for injury, rash, and discoloration, Neuro: Negative for headache, weakness, numbness, tingling, and seizure, 14:29 Respiratory: Positive for cough, Negative for shortness of breath, 14:29 Abdomen/GI: Positive for nausea and vomiting, Exam: 14:29 Constitutional: This is a well developed, well nourished patient who is awake, alert, rt and in no acute distress. Head/Face: Normocephalic, atraumatic. Chest/axilla: Normal chest wall appearance and motion. Nontender with no deformity. No lesions are appreciated. Cardiovascular: Regular rate and rhythm with a normal S1 and S2. No gallops, murmurs, or rubs. Normal PMI, no JVD. No pulse deficits. Abdomen/GI: Soft, non-tender, with normal bowel sounds. No distension or tympany. No guarding or rebound. No evidence of tenderness throughout. Skin: Warm, dry with normal turgor. Normal color with no rashes, no lesions, and no evidence of cellulitis. Neuro: Awake and alert, GCS 15, oriented to person, place, time, and situation. Cranial nerves II-XII grossly intact. Motor strength 5/5 in all extremities. Sensory grossly intact. Cerebellar exam normal. Normal gait. 14:29 ECG was reviewed by the Attending Physician. 14:29 Respiratory: Bibasilar crackles, no respiratory distress, Vital Signs: 12:13 BP 114 / 67; Pulse 58; Resp 16; Temp 98; Pulse Ox 98% ; Weight 86.18 kg; Height 6 ft. 1 db in. ; 12:13 Body Mass Index 25.07 (86.18 kg, 185.42 cm) db MDM: 12:13 Medical Screening Exam initiated rt 14:31 Differential diagnosis: CHF, pneumonia, viral syndrome, nausea, vomiting. Data rt reviewed: vital signs, nurses notes, lab test result(s), EKG, radiologic studies. Consideration of Admission/Observation Patient was admitted/placed on observation. Management of patient was discussed with the following: Hospitalist: Agrees to admit. I considered the following discharge prescriptions or medication management in the emergency department Medications were administered in the Emergency Department. See MAR. Independent interpretation of the following test(s) in the Emergency Department X-Ray: My interpretation is Edema, asymmetric on the right seen on interpretation of x-ray images. Test considered but Not performed: CT: Benign abdominal exam, CT scan is not indicated. Care significantly affected by the following chronic conditions: Congestive Heart Failure. Counseling: I had a detailed discussion with the patient and/or guardian regarding the historical points, exam findings, and any diagnostic results supporting the discharge/admit diagnosis, lab results, radiology results, the need for further work-up and treatment in the hospital. Response to treatment: the patient's symptoms have markedly improved after treatment. 05/18 12:18 Order name: Basic Metabolic Panel; Complete Time: 13:37 rt 05/18 12:18 Order name: CBC with Diff; Complete Time: 13:37 rt 05/18 12:18 Order name: LFT's; Complete Time: 13:37 rt 05/18 12:18 Order name: Magnesium; Complete Time: 13:37 rt 05/18 12:18 Order name: NT PRO-BNP; Complete Time: 13:37 rt 05/18 12:18 Order name: Troponin HS; Complete Time: 13:37 rt 05/18 12:18 Order name: COVID-19 Ag + Flu A+B Ag; Complete Time: 13:37 rt 05/18 12:33 Order name: Glucose, Ancillary Testing; Complete Time: 13:02 EDMS 05/18 16:04 Order name: Phosphorus EDMS 05/18 16:04 Order name: Urinalysis w/ reflexes EDMS 05/18 16:05 Order name: Basic Metabolic Panel EDMS 05/18 16:05 Order name: Basic Metabolic Panel EDMS 05/18 16:05 Order name: CBC with Automated Diff EDMS 05/18 16:05 Order name: CBC with Automated Diff EDMS 05/18 16:05 Order name: Magnesium EDMS 05/18 16:05 Order name: Magnesium EDMS 05/18 16:05 Order name: NT PRO-BNP EDMS 05/18 16:05 Order name: NT PRO-BNP EDMS 05/18 16:05 Order name: Blood Culture EDMS 05/18 12:18 Order name: XRAY Chest (1 view); Complete Time: 13:02 rt 05/18 16:09 Order name: Echo with Doppler EDMS 05/18 12:18 Order name: EKG; Complete Time: 12:19 rt 05/18 16:05 Order name: Patient Safety Orders EDMS 05/18 12:18 Order name: Cardiac monitoring; Complete Time: 12:37 rt 05/18 12:18 Order name: EKG - Nurse/Tech; Complete Time: 12:37 rt 05/18 12:18 Order name: IV Saline Lock; Complete Time: 12:53 rt 05/18 12:18 Order name: Labs collected and sent; Complete Time: 12:53 rt 05/18 12:18 Order name: O2 Per Protocol; Complete Time: 12:28 rt 05/18 12:18 Order name: O2 Sat Monitoring; Complete Time: 12:28 rt EC:29 Rate is 59 beats/min. Rhythm is regular, Sinus bradycardia with No ectopy. Right axis rt deviation noted. [place] interval is prolonged at 246 msec. QRS interval is normal. QT interval is normal. No Q waves. Administered Medications: 12:37 Drug: Ondansetron Oral Disintegrating Tablet Oral Disintegrating Tablet 4 mg PO once ld1 Route: PO; 05/19 00:01 Follow up: Response: No adverse reaction al05/18 14:51 Drug: Furosemide IVP 40 mg IVP once; give over 2 minutes Route: IVP; Site: right wrist; bp 05/19 00:01 Follow up: Response: No adverse reaction 05/18 14:52 Drug: Rocephin - Rocephin (cefTRIAXone) IVPB 2 grams IVPB once over 30 mins; (mix in bp 100 mL NS) Route: IVPB; Infused Over: 30 mins; Site: right wrist; 16:22 Follow up: IV Status: Completed infusion bp 14:54 Drug: AZITHromycin IVPB 500 mg IVPB once over 1 hrs; (mix in 250 mL NS) Route: IVPB; bp Infused Over: 1 hrs; Site: right wrist; 16:22 Follow up: IV Status: Completed infusion bp Point of Care Testing: Blood Glucose: 12:21 Blood Glucose: 245 mg/dL; db Ranges: Critical Glucose Levels:Adult <50 mg/dl or >400 mg/dl <40 mg/dl or >180 mg/dl Disposition Summary: 05/18/24 14:35 Hospitalization Ordered Notes: Hospitalization Status: Observation rt Provider: Dav Locke rt Condition: Stable rt Problem: new rt Symptoms: have improved rt Bed/Room Type: Standard rt Location: Telemetry/MedSurg (Inpatient)(05/18/24 21:25) Room Assignment: 412(05/18/24 22:59) al5 Diagnosis - CHF exacerbation rt - Community-acquired pneumonia rt Forms: - Medication Reconciliation Form rt - SBAR form rt - Leadership Thank You Letter rt Signatures: Dispatcher [employer] Perlita Mujica RN RN kl Peltier, Brian, RN RN bp Riya Jacobo RN RN ld1 Elise Melara RN RN db Lazaro Butler MD MD rt Ana Paula Oh RN RN al5 Corrections: (The following items were deleted from the chart) 17:06 14:35 Telemetry/MedSurg (observation) rt bp 17: 14:35 rt bp 21:25 17:06 BR ER HOLD bp kl 21: 17: ERHOLD- bp kl 22:59 21:25 415 kl al5
--- NOTE | 2024-05-18 14:35 | ER ---
Nurse's Notes [facility] Name: Navjot Collins Age: 79 yrs Sex: Male : 1945 Arrival Date: 05/18/2024 Time: 11:56 Bed 5 Private MD: Diagnosis: CHF exacerbation;Community-acquired pneumonia Presentation: 05/18 12:13 Chief complaint: Patient states: N/V REPORTS DRY HEAVES ATE BREAKFAST AND STATES db VOMITED AFTER THEN WAS UNABLE TO EAT LUNCH. COMPLAINS OF CHILLS AND COUGH. AND IS TAKING OTC COUGH MEDICINE/DECONGESTANT. SYMPTOMS STARTED THIS AM. HAS BEEN GOING THROUGH A LOT AT HOME. Coronavirus screen: Client denies travel out of the [place] in the last 14 days. At this time, the client does not indicate any symptoms associated with coronavirus-19. Ebola Screen: Patient negative for fever greater than or equal to 101.5 degrees Fahrenheit, and additional compatible Ebola Virus Disease symptoms Patient denies exposure to infectious person. Patient denies travel to an Ebola-affected area in the 21 days before illness onset. No symptoms or risks identified at this time. Initial Sepsis Screen: Does the patient meet any 2 criteria? No. Patient's initial sepsis screen is negative. Does the patient have a suspected source of infection? No. Patient's initial sepsis screen is negative. Risk Assessment: Do you want to hurt yourself or someone else? Patient reports no desire to harm self or others. Onset of symptoms was May 18, 2024. 12:13 Method Of Arrival: Wheelchair db 12:13 Acuity: ZENAIDA 3 db Triage Assessment: 12:15 General: Appears in no apparent distress. comfortable, Behavior is calm, cooperative. db Pain: Denies pain. Neuro: Level of Consciousness is awake, alert, obeys commands, Oriented to person, place, time, situation. Respiratory: Airway is patent Respiratory effort is even, unlabored, Respiratory pattern is regular, symmetrical. GI: Reports nausea, vomiting. Derm: Reports WOUND TO RIGHT FOOT. Musculoskeletal: Reports AMPUTATION ON LEFT LEG. Historical: - Allergies: 12:15 Codeine; db 12:15 fedrazil; db 12:15 Demerol; db 12:15 Vicodin; db - PMHx: 12:15 Atrial Fib; CAD; Diabetes - IDDM; HTN; PROSTATE CA; Right foot wound with wound vac in db place (Unknown); CHF; - PSHx: 12:15 Bladder; Coronary artery bypass graft; Left BKA; prostate; Stented artery; db - Immunization history:: Adult Immunizations unknown. - Infectious Disease History:: Denies. - Social history:: Smoking status: Patient denies any tobacco usage or history of. - Family history:: not pertinent. Screenin:55 [facility] ED Fall Risk Assessment (Adult) History of falling in the last 3 months, bp including since admission No falls in past 3 months (0 pts) Confusion or Disorientation No (0 pts) Intoxicated or Sedated No (0 pts) Impaired Gait No (0 pts) Mobility Assist Device Used No (0 pt) Altered Elimination No (0 pt) Score/Fall Risk Level 0 - 2 = Low Risk Oriented to surroundings. Abuse screen: Denies threats or abuse. Denies injuries from another. Nutritional screening: No deficits noted. Tuberculosis screening: No symptoms or risk factors identified. Assessment: 13:21 General: Appears in no apparent distress. comfortable, Behavior is calm, cooperative, ld1 appropriate for age. Pain: Denies pain. Neuro: Level of Consciousness is awake, alert, obeys commands, Oriented to person, place, time, situation, Appropriate for age. Cardiovascular: Capillary refill < 3 seconds Patient's skin is warm and dry. Respiratory: Airway is patent Respiratory effort is even, unlabored. GI: Abdomen is round non-distended, Reports nausea, vomiting. : No signs and/or symptoms were reported regarding the genitourinary system. EENT: No signs and/or symptoms were reported regarding the EENT system. Derm: No signs and/or symptoms reported regarding the dermatologic system. Musculoskeletal: No signs and/or symptoms reported regarding the musculoskeletal system. Vital Signs: 12:13 BP 114 / 67; Pulse 58; Resp 16; Temp 98; Pulse Ox 98% ; Weight 86.18 kg; Height 6 ft. 1 db in. ; 12:13 Body Mass Index 25.07 (86.18 kg, 185.42 cm) db ED Course: 12:00 Patient arrived in ED. cj3 12:01 Lazaro Butler MD is Attending Physician. rt 12:15 Triage completed. db 12:17 Arm band placed on Patient placed in waiting room. db 12:26 Albert Senior, RN is Primary Nurse. bp 12:51 XRAY Chest (1 view) In Process Unspecified. EDMS 12:53 Initial lab(s) drawn, by me, sent to lab. Flu and/or RSV swab sent to lab. Inserted bp saline lock: 20 gauge in right forearm, using aseptic technique. Blood collected. Flushed with 10 mL NS. 12:55 Patient has correct armband on for positive identification. bp 13:21 Pulse ox on. NIBP on. Door closed. Noise minimized. Warm blanket given. ld1 13:21 No provider procedures requiring assistance completed. ld1 14:34 Dav Locke MD is Hospitalizing Provider. rt 17:43 Patient admitted, IV remains in place. bp Administered Medications: 12:37 Drug: Ondansetron Oral Disintegrating Tablet Oral Disintegrating Tablet 4 mg PO once ld1 Route: PO; 05/19 00:01 Follow up: Response: No adverse reaction al5 05/18 14:51 Drug: Furosemide IVP 40 mg IVP once; give over 2 minutes Route: IVP; Site: right wrist; bp 05/19 00:01 Follow up: Response: No adverse reaction al5 05/18 14:52 Drug: Rocephin - Rocephin (cefTRIAXone) IVPB 2 grams IVPB once over 30 mins; (mix in bp 100 mL NS) Route: IVPB; Infused Over: 30 mins; Site: right wrist; 16:22 Follow up: IV Status: Completed infusion bp 14:54 Drug: AZITHromycin IVPB 500 mg IVPB once over 1 hrs; (mix in 250 mL NS) Route: IVPB; bp Infused Over: 1 hrs; Site: right wrist; 16:22 Follow up: IV Status: Completed infusion bp Medication: 13:21 VIS not applicable for this client. ld1 Point of Care Testing: Blood Glucose: 12:21 Blood Glucose: 245 mg/dL; db Ranges: Outcome: 14:35 Decision to Hospitalize by Provider. rt 17:43 Admitted to ER Hold. [facility]. bp 17:43 Condition: stable 17:43 Instructed on the need for admit, 05/19 00:01 Patient left the ED. al5 Signatures: Dispatcher [employer] EDMS Albert Senior, JUDE RN bp Riya Jacobo RN RN ld1 Elise Melara, RN RN db Lazaro Butler MD MD rt Ana Paula Oh RN RN al5 Edith Red cj3
[2024-05-18] MEDS: FUROSEMIDE 40 MG/4 ML VIAL IV SCH (17:00)
[2024-05-18] MEDS ORDERED: ONDANSETRON 4 MG/2 ML VIAL ONE (17:38)
[2024-05-18 17:49] VITALS: BMI 25.0
[2024-05-18] MEDS: ONDANSETRON 4 MG/2 ML VIAL IV PRN (17:58)
[2024-05-18] MEDS: HEPARIN 5000 UNIT/ML 1 ML VIAL SQ SCH (21:00)
--- NOTE | 2024-05-18 21:06 | P.HP ---
Certification for Inpatient Patient admitted to: Inpatient With expected LOS: >2 Midnights Patient will require the following post-hospital care: None Practitioner: I am a practitioner with admitting privileges, knowledge of patient current condition, hospital course, and medical plan of care. Services: Services provided to patient in accordance with Admission requirements found in Title 42 Section 412.3 of the Code of Federal Regulations Patient History Date of Service: 05/18/24 Reason for admission: Cough, shortness of breath, nausea and vomiting History of Present Illness: Patient is a 79-year-old male with a past medical history significant for atrial fibrillation, CAD, CABG, DM2, hypertension, prostrate cancer, left BKA, right foot wound, CHF presents with complaint of cough congestion, chills and generalized malaise that has been ongoing for the past 1 week. Patient reported that today he started experiencing nausea and vomiting. Patient reported associated signs and symptoms of shortness of breath. Patient denies any other signs and symptoms. Symptoms are aggravated or relieved by nothing. Patient decided to present to the hospital due to worsening symptoms. Allergies acetaminophen [From Vicodin] Adverse Reaction (Verified 02/08/20 05:56) Nausea/Vomiting codeine Adverse Reaction (Verified 02/08/20 05:56) Nausea/Vomiting hydrocodone bitartrate [From Vicodin] Adverse Reaction (Verified 02/08/20 05:56) Nausea/Vomiting Home Medications: Insulin Degludec [Tresiba Flextouch U-200] 40 units SQ BEDTIME 04/14/18 Tamsulosin HCl 0.4 mg PO BEDTIME 04/14/18 Sotalol HCl [Betapace*] 80 mg PO BID 6AM 6PM #60 tab 05/28/19 glipiZIDE [Glipizide ER] 10 mg PO BID 02/08/20 Dapagliflozin Propanediol [Farxiga] 5 mg PO DAILY 03/28/21 Losartan Potassium 25 mg PO DAILY 03/28/21 Rivaroxaban [Xarelto] 20 mg PO BEDTIME 03/28/21 Rosuvastatin Calcium [Crestor] 20 mg PO DAILY 03/28/21 Famotidine 20 mg PO DAILY 01/28/23 Finasteride 5 mg PO DAILY 01/28/23 Magnesium Oxide [Magnesium] 500 mg PO BID 01/28/23 Oseltamivir Phosphate [Tamiflu] 75 mg PO BID 01/28/23 Zinc Gluconate [Zinc] 30 mg PO DAILY 01/28/23 Liothyronine Sodium [Cytomel] 25 mcg PO ACB 30 Days #30 tab 01/30/23 Torsemide [Demadex*] 20 mg PO Q24H 60 Days #60 tab 03/24/23 Doxycycline Hyclate 100 mg PO BID #20 cap 02/10/24 - Past Medical/Surgical History Has patient received pneumonia vaccine in the past: Yes Diabetic: Yes -: DM II -: HTN -: CKD III (Dr. Márquez/ Dr. Aguilar) -: Systolic CHF -: CAD -: HLD -: Atrial fibrillation on chronic anticoagulation -: Enlarged Prostate with LUTS -: Prostate cancer -: carotid stent -: CABG t2016 -: BKA left leg -: Prostate surgery -: bladder surgery -: skin graft Psychosocial/ Personal History: Patient lives at home with his family - Family History Father -: Heart disease Mother -: Lung disease Notes: COPD, leaking heart valve, emphysema - Social History Smoking Status: Never smoker Alcohol use: No CD- Drugs: No Caffeine use: Yes Place of Residence: Home Review of Systems General: Chills, Malaise Eyes: Unremarkable ENT: Unremarkable Respiratory: Cough, Shortness of Breath, Other (Chest congestion) Cardiovascular: Unremarkable Gastrointestinal: Nausea, Vomiting Genitourinary: Unremarkable Musculoskeletal: Unremarkable Integumentary: Other (Right foot wound) Neurological: Unremarkable Lymphatics: Unremarkable Physical Examination - Physical Exam General: Alert, In no apparent distress, Oriented x3, Cooperative HEENT: Atraumatic, PERRLA, Mucous membr. moist/pink, EOMI, Sclerae nonicteric Neck: Supple, 2+ carotid pulse no bruit, No LAD, Without JVD or thyroid abnormality Respiratory: Normal air movement, Diminished Cardiovascular: Regular rate/rhythm, Normal S1 S2 Capillary refill: <2 Seconds Gastrointestinal: Normal bowel sounds, Soft and benign, No tenderness Musculoskeletal: No clubbing, No swelling, No tenderness Integumentary: No rashes, Skin breakdown, Other (Right foot wound ) Neurological: Normal speech, Normal tone, Normal affect Lymphatics: No axilla or inguinal lymphadenopathy - Studies Laboratory Data (last 24 hrs) 05/18/24 05/18/24 12:52 12:52 WBC 8.10 Hgb 11.0 L Hct 33.6 L Plt Count 296 Sodium 133 L Potassium 4.8 BUN 38 H Creatinine 1.35 H Glucose 262 H Magnesium 2.7 H Total Bilirubin 0.7 AST 11 L ALT < 14 L Alkaline Phosphatase 85 Assessment and Plan - Plan Acute on chronic diastolic and systolic CHF exacerbation. --Patient placed on diuresis with Lasix. --Daily weight and strict I/O. --Echocardiogram pending to assess LV\valvular functions and wall motion. Pneumonia. --Patient placed on antibiotics. --Continue Neb treatment with Atrovent\albuterol. --Chronic A-fib. --Continue Xarelto. Right foot wound. --Wound care consult initiated. Recommendations appreciated. History of CAD\CABG --Continue aspirin and Xarelto. Left BKA. --Continue supportive care. DM2 with hyperglycemia. --BS monitoring with sliding scale insulin. BPH. --Continue home medications. History of prostate cancer. --Status unknown. --Continue supportive care. Hypertension. --Stable. --Continue home medications DVT prophylaxis with Xarelto. Discharge Plan: Home Plan to discharge in: 48 Hours - Advance Directives Does patient have a Living Will: No Does patient have a Durable POA for Healthcare: No - Code Status/Comfort Care Code Status Assessed: Yes Physician Review: Patient Assessed, Agree with Above Assessment and Plan Critical Care: No
[2024-05-19] MEDS: BENZONATATE 100 MG CAP PO PRN (01:00)
[2024-05-19] MEDS: ALBUTEROL 2.5 MG/3 ML NEB SOL NEB SCH (01:23)
[2024-05-19] MEDS: IPRATROPIUM BROM 0.5MG/2.5ML NEB SCH (01:24)
[2024-05-19] MEDS: SOTALOL HCL 80 MG TAB PO SCH (06:39)
[2024-05-19 06:40] LABS: Absolute Eosinophils 0.1 K/uL (0-0.5); Absolute Neutrophil 5.2 K/uL (1.8-8.0); Basophils % 0.6 % (0-1.3); Eosinophils % 1.8 % (0-4.4); Hemoglobin 10.7 g/dL (13.6-17.9); Lymphocytes % 13.1 % (15.3-44.8); MCH 25.8 pg (27.0-35.0); MCHC 32.5 g/dL (32.0-36.0); MCV 79.2 fL (80-100); MPV 6.8 fL (7.6-11.3); Monocytes % 13.6 % (3.3-12.3); Neutrophils % 70.9 % (41.7-73.7); Nucleated Red Blood Cells % 0.1 % (0-0); Platelets 293 thou/uL (152-406); RBC Red Blood Cell Count 4.17 M/uL (4.33-5.43); Red Cell Distribution Width 15.1 % (12.1-15.2)
[2024-05-19 06:55] LABS: Anion Gap 8.2 mEq/L (5.0-15.0); Magnesium 2.7 mg/dL (1.6-2.4); Potassium 4.2 mEq/L (3.5-5.1)
[2024-05-19] MEDS: LOSARTAN POTASSIUM 50 MG TABLET PO SCH (09:00)
[2024-05-19] MEDS ORDERED: MAGNESIUM OXIDE 400 MG TAB PO SCH (09:00)
[2024-05-19] MEDS: ASPIRIN 81 MG CHEWABLE TABLET PO SCH (09:00)
[2024-05-19] MEDS: FAMOTIDINE 20 MG TAB PO SCH (10:17)
[2024-05-19] MEDS: FINASTERIDE 5 MG TAB PO SCH (10:17)
[2024-05-19] MEDS: MAGNESIUM OXIDE 400 MG TAB PO SCH (10:18)
[2024-05-19] MEDS: LIOTHYRONINE SOD 25 MCG TAB PO SCH (10:18)
[2024-05-19] MEDS: CEFTRIAXONE 1,000 MG in NA CHLORIDE 0.9% 50 ML IVPB SCH (10:19)
[2024-05-19] MEDS: AZITHROMYCIN IV 500 MG in NA CHLORIDE 0.9% 250 ML IVPB SCH (10:21)
[2024-05-19] MEDS: ZINC SULFATE 220 MG CAP PO SCH (10:21)
[2024-05-19] MEDS ORDERED: GLUCAGON 1 MG/VIAL IM PRN (11:58)
[2024-05-19] MEDS ORDERED: D10W 125 ML IV PRN (11:58)
--- NOTE | 2024-05-19 12:18 | P.CNS ---
Date of Consult: 05/19/24 Chief Complaint: Cough, shortness of breath, nausea and vomiting History of Present Illness: Patient with PMH of CAD s/p CABG, AF, presented with worsening SOB, cough, weakness, orthopnea, denies chest pain, no palpitations, no syncope. Allergies acetaminophen [From Vicodin] Adverse Reaction (Verified 02/08/20 05:56) Nausea/Vomiting codeine Adverse Reaction (Verified 02/08/20 05:56) Nausea/Vomiting hydrocodone bitartrate [From Vicodin] Adverse Reaction (Verified 02/08/20 05:56) Nausea/Vomiting Home medications list reviewed: Yes Home Medications: Insulin Degludec [Tresiba Flextouch U-200] 40 units SQ BEDTIME 04/14/18 Tamsulosin HCl 0.4 mg PO BEDTIME 04/14/18 Sotalol HCl [Betapace*] 80 mg PO BID 6AM 6PM #60 tab 05/28/19 glipiZIDE [Glipizide ER] 10 mg PO BID 02/08/20 Dapagliflozin Propanediol [Farxiga] 5 mg PO DAILY 03/28/21 Losartan Potassium 25 mg PO DAILY 03/28/21 Rivaroxaban [Xarelto] 20 mg PO BEDTIME 03/28/21 Rosuvastatin Calcium [Crestor] 20 mg PO DAILY 03/28/21 Famotidine 20 mg PO DAILY 01/28/23 Finasteride 5 mg PO DAILY 01/28/23 Magnesium Oxide [Magnesium] 500 mg PO BID 01/28/23 Oseltamivir Phosphate [Tamiflu] 75 mg PO BID 01/28/23 Zinc Gluconate [Zinc] 30 mg PO DAILY 01/28/23 Liothyronine Sodium [Cytomel] 25 mcg PO ACB 30 Days #30 tab 01/30/23 Torsemide [Demadex*] 20 mg PO Q24H 60 Days #60 tab 03/24/23 Doxycycline Hyclate 100 mg PO BID #20 cap 02/10/24 - Past Medical/Surgical History Diabetic: Yes -: DM II -: HTN -: CKD III (Dr. Márquez/ Dr. Aguilar) -: Systolic CHF -: CAD -: HLD -: Atrial fibrillation on chronic anticoagulation -: Enlarged Prostate with LUTS -: Prostate cancer -: carotid stent -: CABG quintuple 2016 -: BKA left leg -: Prostate surgery -: bladder surgery -: skin graft Psychosocial/ Personal History: Patient lives at home with his family - Family History Father Medical History: Heart disease Mother Medical History: Lung disease Notes: COPD, leaking heart valve, emphysema - Social History Smoking Status: Unknown if ever smoked Alcohol use: No CD- Drugs: No Caffeine use: Yes Place of Residence: Home Review of Systems 10-point ROS is otherwise unremarkable Physical Examination Temp Pulse Resp BP Pulse Ox 98.3 F 65 16 98/61 94 05/19/24 12:00 05/19/24 12:00 05/19/24 12:00 05/19/24 12:05/19/24 12:00 General: Alert, In no apparent distress HEENT: Atraumatic, PERRLA, Mucous membr. moist/pink, EOMI, Sclerae nonicteric Neck: Supple, 2+ carotid pulse no bruit, No LAD, Without JVD or thyroid abnormality Respiratory: Clear to auscultation bilaterally, Normal air movement Cardiovascular: Regular rate/rhythm, Normal S1 S2 Gastrointestinal: Normal bowel sounds, No tenderness Musculoskeletal: No tenderness Integumentary: No rashes Neurological: Normal gait, Normal speech, Normal tone, Normal affect Lymphatics: No axilla or inguinal lymphadenopathy Laboratory Data (last 24 hrs) 05/18/24 05/18/24 12:52 12:52 WBC 8.10 Hgb 11.0 L Hct 33.6 L Plt Count 296 Sodium 133 L Potassium 4.8 BUN 38 H Creatinine 1.35 H Glucose 262 H Magnesium 2.7 H Total Bilirubin 0.7 AST 11 L ALT < 14 L Alkaline Phosphatase 85 - Problems (1) Acute on chronic combined systolic (congestive) and diastolic (congestive) heart failure Current Visit: Yes Status: Acute Plan: Patient mention that he has been complaint with his medications but he takes toresmide PRN, and he has been taking it for the last 5 days. continue Lasix 40 mg IV BID echo shows moderate LV systolic dysfunction, DD and elevated filling pressures. continue to monitor input and output and electrolytes (2) Atrial fibrillation Current Visit: Yes Status: Acute Plan: continue Sotalol 80 mg po BID Continue Xarelto Monitor on telemetry (3) Hx of CABG Current Visit: No Status: Acute Plan: No chest pain, troponin negative outpatient follow up with cardiology.
[2024-05-19] MEDS: INSULIN REGULAR (HUMAN) 100 UNIT/ML IV SCH (12:36)
--- NOTE | 2024-05-19 13:02 | ECHO ---
HEIGHT: 6 ft 1 in WEIGHT: 190 lb 0 oz DATE OF STUDY: 05/19/[address]: Baljinder Lee 2-DIMENSIONAL: YES M.MODE: YES DOPPLER: YES COLOR FLOW: YES TDS: PORTABLE: YES DEFINITY: BUBBLE STUDY: DIAGNOSIS: CONGESTIVE HEART FAILURE EXACERBATION CARDIAC HISTORY: CATHERIZATION: YES SURGERY: YES PROSTHETIC VALVE: NO PACEMAKER: NO MEASUREMENTS (cm) DIASTOLIC (NORMALS) SYSTOLIC (NORMALS) IVSd 1.1 (0.6-1.2) LA Diam 4.5 (1.9-4.0) LVEF 30-35% LVIDd 6.2 (3.5-5.7) LVIDs 5.3 (2.0-3.5) %FS 14% LVPWd 1.1 (0.6-1.2) Ao Diam 3.7 (2.0-3.7) 2 DIMENSIONAL ASSESSMENT: RIGHT ATRIUM: NORMAL LEFT ATRIUM: NORMAL RIGHT VENTRICLE: NORMAL LEFT VENTRICLE: NORMAL TRICUSPID VALVE: MILD TRICUSPID REGURGITATION MITRAL VALVE: MILD MITRAL REGURGITATION PULMONIC VALVE: NORMAL AORTIC VALVE: MILD AORTIC REGURGITATION PERICARDIAL EFFUSION: NONE AORTIC ROOT: NORMAL LEFT VENTRICULAR WALL MOTION: MODERATE GLOBAL HYPOKINESIS DOPPLER/COLOR FLOW: GRADE II DIASTOLIC DYSFUNCTION COMMENTS: 1. MODERATELY REDUCED LEFT VENTRICULAR SYSTOLIC FUNCTION, EJECTION FRACTION 30-35%, MODERATE GLOBAL HYPOKINESIS 2. GRADE II DIASTOLIC DYSFUNCTION 3. ELEVATED FILLING PRESSURE (RIGHT ATRIAL PRESSURE 15-20 mmHg) 4. MILD MITRAL REGURGITATION 5. MILD AORTIC REGURGITATION TECHNOLOGIST: AMEENA ROSARIO
--- NOTE | 2024-05-19 16:47 | EKG ---
Test Date: 2024-05-18 Test Time: 12:36:02 Director Of Scientific Research: Serena PATEL MEASUREMENT RESULTS: Intervals: Rate: 59 VA: 246 QRSD: 104 QT: 486 QTc: 481 [place]anan: P: 56 VA: 246 QRS: 129 T: -33 INTERPRETIVE STATEMENTS: Sinus bradycardia with 1st degree AV block Right axis deviation T wave abnormality, consider inferior ischemia Prolonged QT Abnormal ECG Compared to ECG 05/02/2024 13:20:24 Possible ischemia now present T-wave abnormality still present Electronically Signed On 05-19-24 16:44:14 [employer] SPECIALIST by Joseph Flores
--- NOTE | 2024-05-19 16:52 | P.PN ---
Date of Service: 05/19/24 Subjective: No acute events overnight, feeling little better ROS: 10 point ROS as noted above, otherwise negative Physical exam GEN: Alert, oriented, NAD HEENT: Normal conjunctiva, sclera anicteric CV: Regular rate and rhythm, no edema Pulm: Nonlabored respirations on room air, breath sounds diminished bilaterally, slight wheeze on the right ABD: Soft, nontender, nondistended MSK: No joint tenderness Integumentary: No rashes Neuro: Normal speech, normal affect Vitals reviewed Assessment: Acute on chronic systolic congestive heart failure History of CAD/CABG Diabetes mellitus type 2 with hyperglycemia Bilateral pneumonia Left BKA Chronic right foot wound BPH history of prostate cancer Hypertension Plan: Acute on chronic systolic congestive heart failure History of CAD/CABG Bilateral pneumonia Chest x-ray with bilateral pulmonary opacities worse on the right Patient does report some chills at home he also seems overloaded with elevated BNP take his as needed diuretic at home daily for the last 5 days continue diuresis, cardiology consult, echocardiogram ordered IV antibiotics as well, monitor daily CBC, fever trend Diabetes mellitus type 2 with hyperglycemia ACHS Accu-Chek, sliding scale insulin Left BKA Chronic right foot wound Wound healing consultation BPH history of prostate cancer Hypertension Continue home meds DVT PPX:continue Xarelto Code status: Full code Time Spent Managing Pts Care (In Minutes): 35
[2024-05-19] MEDS: RIVAROXABAN 20 MG TABLET PO SCH (20:27)
[2024-05-19] MEDS: TAMSULOSIN 0.4 MG SR CAP PO SCH (20:27)
[2024-05-19] MEDS: INSULIN GLARGINE 100 UNIT/ML SQ SCH (20:54)
[2024-05-20 08:59] LABS: Hematocrit 36.1 % (39.6-49.0); Hemoglobin 11.5 g/dL (13.6-17.9); MCH 25.4 pg (27.0-35.0); MCHC 31.9 g/dL (32.0-36.0); MCV 79.6 fL (80-100); MPV 6.7 fL (7.6-11.3); Platelets 333 thou/uL (152-406); RBC Red Blood Cell Count 4.53 M/uL (4.33-5.43); Red Cell Distribution Width 15.6 % (12.1-15.2)
--- NOTE | 2024-05-20 13:42 | P.PN ---
Subjective Date of Service: 05/20/24 Chief Complaint: Cough, shortness of breath, nausea and vomiting Subjective: No new changes, No C/O voiced, Tolerating diet, Ambulating, Improving Review of Systems 10-point ROS is otherwise unremarkable Physical Examination - Vital Signs Temperature: 97.7 F Blood Pressure: 110/59 Pulse: 61 Respirations: 18 Pulse Ox (%): 95 - Physical Exam General: Alert, In no apparent distress HEENT: Atraumatic, PERRLA, EOMI Neck: Supple, JVD not distended Respiratory: Clear to auscultation bilaterally, Normal air movement Cardiovascular: Regular rate/rhythm, Normal S1 S2 Gastrointestinal: Normal bowel sounds, No tenderness Musculoskeletal: No tenderness Integumentary: No rashes Neurological: Normal speech, Normal tone, Normal affect Lymphatics: No axilla or inguinal lymphadenopathy - Studies Medications List Reviewed: Yes Assessment And Plan - Current Problems (Diagnosis) (1) Acute on chronic combined systolic (congestive) and diastolic (congestive) heart failure Current Visit: Yes Status: Acute Plan: Patient mention that he has been complaint with his medications but he takes toresmide PRN, and he has been taking it for the last 5 days. continue Lasix 40 mg IV BID may switch back to torsemide 20 mg daily on discharge consider adding Aldactone 25 mg daily continue patient home dose Farxiga continue Losartan 25 mg daily echo shows moderate LV systolic dysfunction, DD and elevated filling pressures. continue to monitor input and output and electrolytes (2) Atrial fibrillation Current Visit: Yes Status: Acute Plan: continue Sotalol 80 mg po BID Continue Xarelto Monitor on telemetry (3) Hx of CABG Current Visit: No Status: Acute Plan: No chest pain, troponin negative outpatient follow up with cardiology. Physician Review: Patient Assessed, Agree with Above Assessment and Plan
--- NOTE | 2024-05-20 14:11 | P.PN ---
Date of Service: 05/20/24 Subjective: No acute events overnight, feeling little better ROS: 10 point ROS as noted above, otherwise negative Physical exam GEN: Alert, oriented, NAD HEENT: Normal conjunctiva, sclera anicteric CV: Regular rate and rhythm, no edema Pulm: Nonlabored respirations on room air, breath sounds diminished bilaterally, slight wheeze on the right ABD: Soft, nontender, nondistended MSK: No joint tenderness Integumentary: No rashes Neuro: Normal speech, normal affect Vitals reviewed Assessment: Acute on chronic systolic congestive heart failure History of CAD/CABG Diabetes mellitus type 2 with hyperglycemia Bilateral pneumonia Left BKA Chronic right foot wound BPH history of prostate cancer Hypertension Plan: Acute on chronic systolic congestive heart failure History of CAD/CABG Bilateral pneumonia Chest x-ray with bilateral pulmonary opacities worse on the right Repeat CXR in AM Patient does report some chills at home he also seems overloaded with elevated BNP take his as needed diuretic at home daily for the last 5 days continue diuresis, cardiology consult, echocardiogram ordered IV antibiotics as well, monitor daily CBC, fever trend Diabetes mellitus type 2 with hyperglycemia ACHS Accu-Chek, sliding scale insulin Left BKA Chronic right foot wound Wound healing consultation BPH history of prostate cancer Hypertension Continue home meds DVT PPX:continue Xarelto Code status: Full code Time Spent Managing Pts Care (In Minutes): 35
[2024-05-21 05:20] LABS: Hematocrit 34.4 % (39.6-49.0); Hemoglobin 11.6 g/dL (13.6-17.9); MCH 26.5 pg (27.0-35.0); MCHC 33.6 g/dL (32.0-36.0); MCV 78.8 fL (80-100); MPV 6.7 fL (7.6-11.3); Platelets 337 thou/uL (152-406); RBC Red Blood Cell Count 4.37 M/uL (4.33-5.43); Red Cell Distribution Width 15.8 % (12.1-15.2)
[2024-05-21 05:28] LABS: Anion Gap 8.5 mEq/L (5.0-15.0); Potassium 4.5 mEq/L (3.5-5.1)
--- NOTE | 2024-05-21 07:27 | RAD REPORT ---
EXAM: Chest Single View HISTORY: 79 years Male eval volume status COMPARISON: 05/18/2024 FINDINGS: LUNGS/PLEURA: Redemonstrated diffuse prominence of the pulmonary interstitium which may be marginally improved. No focal consolidation. CARDIAC/MEDIASTINUM: Stable enlargement. UPPER ABDOMEN: No significant abnormality. BONES: Sternotomy. No acute abnormality. LINES/TUBES/OTHER: N/A IMPRESSION: Similar to marginally improved edema compared with 05/18/2024.
[2024-05-21] MEDS: FUROSEMIDE 40 MG TABLET PO SCH (09:12)
[2024-05-21 13:28] VITALS: O2SAT 96
[2024-05-21 13:32] VITALS: BP 106/59; TEMP 97.9
--- NOTE | 2024-05-21 14:48 | P.DS ---
Admission Date: 05/18/24 Discharge Date: 05/21/24 Disposition: ROUTINE DISCHARGE Discharge Condition: GOOD Reason for Admission: Cough, shortness of breath, nausea and vomiting Brief History of Present Illness: Patient is a 79-year-old male with a past medical history significant for atrial fibrillation, CAD, CABG, DM2, hypertension, prostrate cancer, left BKA, right foot wound, CHF presents with complaint of cough congestion, chills and generalized malaise that has been ongoing for the past 1 week. Patient reported that today he started experiencing nausea and vomiting. Patient reported associated signs and symptoms of shortness of breath. Patient denies any other signs and symptoms. Symptoms are aggravated or relieved by nothing. Patient decided to present to the hospital due to worsening symptoms. Hospital Course: Assessment: Acute on chronic systolic congestive heart failure History of CAD/CABG Diabetes mellitus type 2 with hyperglycemia Bilateral pneumonia Left BKA Chronic right foot wound BPH history of prostate cancer Hypertension Patient was admitted to the hospital for cough, shortness of breath. His chest x-ray initially showed moderate bilateral pulmonary Pacitti's greater on the right likely representing pneumonia or pulmonary edema. His white blood cell count remained within normal limits and he was afebrile, he was treated with IV diuretics and antibiotics and had steady improvement over the course of the next couple of days. At home he had been taking torsemide only as needed but the last 5 days has been taking it daily. Echocardiogram was performed during hospitalization which showed moderately used LVEF of 30 to 35% with moderate global hypokinesis, grade 2 diastolic dysfunction, elevated filling pressures. He was diuresed with IV Lasix and is breathing well on room air at this time, he is stable for discharge and outpatient follow-up with cardiology in 1 to 2 weeks. He should start taking his torsemide daily until otherwise instructed by cardiology. He will also be prescribed a short course of oral Augmentin to cover any possible pneumonia. Please follow-up with your primary care doctor in 1 to 2 weeks Take torsemide daily instead of as needed until otherwise instructed by cardiology Continue other home medications as previously prescribed Vital Signs/Physical Exam: Temp Pulse Resp BP Pulse Ox 97.9 F 66 17 106/59 L 96 05/21/24 12:00 05/21/24 12:00 05/21/24 12:00 05/21/24 12:05/21/24 12:00 General: Alert, In no apparent distress, Oriented x3 HEENT: Atraumatic, PERRLA Neck: Supple, JVD not distended Respiratory: Clear to auscultation bilaterally, Normal air movement Cardiovascular: Regular rate/rhythm, Normal S1 S2 Gastrointestinal: Normal bowel sounds, No tenderness Musculoskeletal: Other (Left AKA, right foot wound) Integumentary: No rashes Neurological: Normal speech, Normal affect Laboratory Data at Discharge: WBC 8.60 thou/uL (4.3-10.9) 05/21/24 04:41 Hgb 11.6 g/dL (13.6-17.9) L 05/21/24 04:41 Hct 34.4 % (39.6-49.0) L 05/21/24 04:41 Plt Count 337 thou/uL (152-406) 05/21/24 04:41 Sodium 135 mEq/L (136-145) L 05/21/24 04:41 Potassium 4.5 mEq/L (3.5-5.1) 05/21/24 04:41 BUN 42 mg/dL (7-18) H 05/21/24 04:41 Creatinine 1.45 mg/dL (0.70-1.30) H 05/21/24 04:41 Glucose 325 mg/dL (74-106) H 05/21/24 04:41 Phosphorus 3.8 mg/dL (2.5-4.9) 05/18/24 18:45 Magnesium 2.7 mg/dL (1.6-2.4) H 05/19/24 06:00 Total Bilirubin 0.7 mg/dL (0.2-1.0) 05/18/24 12:52 AST 11 U/L (15-37) L 05/18/24 12:52 ALT < 14 U/L (16-61) L 05/18/24 12:52 Alkaline Phosphatase 85 U/L (45-117) 05/18/24 12:52 Home Medications: Insulin Degludec [Tresiba Flextouch U-200] 40 units SQ BEDTIME 04/14/18 Tamsulosin HCl 0.4 mg PO BEDTIME 04/14/18 Sotalol HCl [Betapace*] 80 mg PO BID 6AM 6PM #60 tab 05/28/19 glipiZIDE [Glipizide ER] 10 mg PO BID 02/08/20 Dapagliflozin Propanediol [Farxiga] 5 mg PO DAILY 03/28/21 Losartan Potassium 25 mg PO DAILY 03/28/21 Rivaroxaban [Xarelto] 20 mg PO BEDTIME 03/28/21 Rosuvastatin Calcium [Crestor] 20 mg PO DAILY 03/28/21 Famotidine 20 mg PO DAILY 01/28/23 Finasteride 5 mg PO DAILY 01/28/23 Magnesium Oxide [Magnesium] 500 mg PO BID 01/28/23 Zinc Gluconate [Zinc] 30 mg PO DAILY 01/28/23 Liothyronine Sodium [Cytomel] 25 mcg PO ACB 30 Days #30 tab 01/30/23 Torsemide [Demadex*] 20 mg PO Q24H 60 Days #60 tab 03/24/23 Amox/Clavulanate [Augmentin 875-125 Tab] 875 mg PO BID 5 Days #10 tab 05/21/24 New Medications: Amox/Clavulanate [Augmentin 875-125 Tab] 875 mg PO BID 5 Days #10 tab Physician Discharge Instructions: Patient was admitted to the hospital for cough, shortness of breath. His chest x-ray initially showed moderate bilateral pulmonary Pacitti's greater on the right likely representing pneumonia or pulmonary edema. His white blood cell count remained within normal limits and he was afebrile, he was treated with IV diuretics and antibiotics and had steady improvement over the course of the next couple of days. At home he had been taking torsemide only as needed but the last 5 days has been taking it daily. Echocardiogram was performed during hospitalization which showed moderately used LVEF of 30 to 35% with moderate global hypokinesis, grade 2 diastolic dysfunction, elevated filling pressures. He was diuresed with IV Lasix and is breathing well on room air at this time, he is stable for discharge and outpatient follow-up with cardiology in 1 to 2 weeks. He should start taking his torsemide daily until otherwise instructed by cardiology. He will also be prescribed a short course of oral Augmentin to cover any possible pneumonia. Please follow-up with your primary care doctor in 1 to 2 weeks Take torsemide daily instead of as needed until otherwise instructed by cardiology Continue other home medications as previously prescribed Diet: AHA Activity: Ad joao Followup: Joseph Flores MD [ACTIVE - CAN ADMIT] - Augusta Winkler [Primary Care Provider] - 1-2 Days Time spent managing pt's care (in minutes): 45
== END 2024-05-21 14:00 | disposition home or self-care (01) | DRG 193 ==
LOC: ER 11:56 → ERHOLD 15:58 → 4TH 23:52
PROVIDERS: ADMIT Hospitalist; ATTEND Hospitalist
DX: J18.9 Pneumonia, unspecified organism (principal); I50.43 Acute on chronic combined systolic (congestive) and diastolic (congestive) heart failure; I13.0 Hypertensive heart and chronic kidney disease with heart failure and stage 1 through stage 4 chronic kidney disease, or unspecified chronic kidney disease; N18.30 Chronic kidney disease, stage 3 unspecified; E11.22 Type 2 diabetes mellitus with diabetic chronic kidney disease; E11.65 Type 2 diabetes mellitus with hyperglycemia; E78.5 Hyperlipidemia, unspecified; I48.91 Unspecified atrial fibrillation; N40.0 Benign prostatic hyperplasia without lower urinary tract symptoms; I25.10 Atherosclerotic heart disease of native coronary artery without angina pectoris; Z88.5 Allergy status to narcotic agent; Z95.1 Presence of aortocoronary bypass graft; Z88.8 Allergy status to other drugs, medicaments and biological substances; Z85.46 Personal history of malignant neoplasm of prostate; Z89.512 Acquired absence of left leg below knee; Z79.4 Long term (current) use of insulin; Z79.84 Long term (current) use of oral hypoglycemic drugs; Z79.899 Other long term (current) drug therapy; Z79.01 Long term (current) use of anticoagulants; Z11.52 Encounter for screening for COVID-19
CPT/HCPCS: 36415; 71045; 80048; 80076; 82947; 83735; 83880; 84100; 84484; 85025; 85027; 87040; 87428; 93005; 93306; 94640; 94760; 96365; 96375; 99285; J0696; J1815; J1940; J2405; J7050; J7613; J7644; Q0162

== ENCOUNTER 2024-06-15 04:36 | Emergency (ER) | payer BC, OTHER ==
[2024-06-15] MEDS ORDERED: PROMETHAZINE 25 MG TABLET ONE (06:16)
[2024-06-15] MEDS ORDERED: GUAIFENESIN/DM 5 ML UCUP ONE (06:17)
[2024-06-15] MEDS ORDERED: NA CHLORIDE 0.9% 1,000 ML ONE (06:17)
[2024-06-15 06:30] LABS: Absolute Basophils 0.1 K/uL (0-0.5); Absolute Eosinophils 0.1 K/uL (0-0.5); Absolute Lymphocytes (CBC) 0.4 K/uL (0.7-4.9); Absolute Monocytes 1.1 K/uL (0.1-1.3); Absolute Neutrophil 11.3 K/uL (1.8-8.0); Basophils % 0.7 % (0-1.3); Eosinophils % 0.5 % (0-4.4); Hematocrit 34.3 % (39.6-49.0); Hemoglobin 11.1 g/dL (13.6-17.9); Lymphocytes % 2.8 % (15.3-44.8); MCHC 32.2 g/dL (32.0-36.0); MCV 77.7 fL (80-100); Monocytes % 8.3 % (3.3-12.3); Neutrophils % 87.7 % (41.7-73.7); Platelets 278 thou/uL (152-406); RBC Red Blood Cell Count 4.41 M/uL (4.33-5.43); Red Cell Distribution Width 16.2 % (12.1-15.2)
[2024-06-15 06:38] LABS: PT Prothrombin Time 32.4 SECONDS (10-13.0); Protime INR 2.99
[2024-06-15 06:48] LABS: Influenza A Ag Negative; Influenza B Ag Negative; SARS-CoV-2 Antigen Rapid Res Negative (Negative)
--- NOTE | 2024-06-15 06:54 | RAD REPORT ---
EXAM: XR Chest, 1 View CLINICAL HISTORY: The patient is 79 years old and is Male; Congestion. TECHNIQUE: Single view of the chest. COMPARISON: No relevant prior studies available. FINDINGS: Lungs: No pulmonary vascular congestion or consolidation. Pleural space: Unremarkable. No pneumothorax. Heart: Cardiomegaly status post CABG surgery. Mediastinum: Unremarkable. Bones/joints: Sternal closure wires. No acute rib fracture. Upper abdomen: No free air in the visualized upper abdomen. IMPRESSION: 1. No acute cardiopulmonary process identified. 2. Cardiomegaly status post CABG surgery. Electronically signed by: Yolie Wharton MD 06/15/2024 06:44 AM CDT RP V2 Due to temporary technical issues with the [employer] reporting system, reports are being wayne d by the in-house radiologist without review as a courtesy to ensure prompt reporting the interpreting radiologist is fully responsible for the content of the report. Transcribed Date/Time: 06/15/2024 6:53 AM
[2024-06-15 06:58] LABS: Albumin 2.7 g/dL (3.4-5.0); Albumin/Globulin Ratio 0.6 (1.1-1.8); Alkaline Phosphatase 97 U/L (45-117); Anion Gap 12.5 mEq/L (5.0-15.0); BUN Blood Urea Nitrogen 37 mg/dL (7-18); Bicarbonate 24 mEq/L (21-32); Bilirubin Direct 0.3 mg/dL (0-0.2); Bilirubin Indirect, Calculated 0.5 mg/dL (0.2-0.8); Bilirubin Total 0.8 mg/dL (0.2-1.0); Globulin 4.3 g/dL (2.3-3.5); Glomerular Filtration Rate 50 ml/min (=/>90); Lipase 39 U/L (13-75); Magnesium 2.5 mg/dL (1.6-2.4); NT PRO-BNP 11858 pg/mL (<450); Potassium 4.5 mEq/L (3.5-5.1); Sodium Level 127 mEq/L (136-145)
[2024-06-15 07:00] LABS: ALT/SGPT < 14 U/L (16-61); AST/SGOT < 10 U/L (15-37)
[2024-06-15 07:02] LABS: Glucose Level 428 mg/dL (74-106)
[2024-06-15] MEDS ORDERED: INSULIN GLARGINE 100 UNIT/ML SQ ONE (07:39)
--- NOTE | 2024-06-15 08:20 | EDPHYS ---
Physician Documentation [facility] Name: Navjot Collins Age: 79 yrs Sex: Male : 1945 Arrival Date: 06/15/2024 Time: 04:36 Bed 8 Private MD: ED Physician Davon Arredondo HPI: 06/15 07:18 This 79 yrs old Male presents to ER via EMS with complaints of High Blood sp4 Sugar. 07:29 79-year-old male presents with moderate blood sugar elevation. Patient states he is sp4 feeling thirsty also has cough and nausea. . Historical: - Allergies: 04:42 Codeine; al5 04:42 Demerol; al5 04:42 fedrazil; al5 04:42 Vicodin; al5 - PMHx: 04:42 Atrial Fib; CAD; CHF; Diabetes - IDDM; HTN; PROSTATE CA; Right foot wound with wound al5 vac in place (Unknown); - PSHx: 04:42 Bladder; Coronary artery bypass graft; Left BKA; prostate; Stented artery; al5 - Immunization history:: Adult Immunizations up to date. - Infectious Disease History:: Denies. - Social history:: Smoking status: Patient denies any tobacco usage or history of. - Family history:: not pertinent. ROS: 07:29 Constitutional: Negative for fever, chills, and weight loss, positive elevated blood sp4 sugar positive cough positive nausea 07:29 All other systems are negative, Exam: 07:29 Constitutional: This is a well developed, well nourished patient who is awake, alert, sp4 patient with left below-knee amputation with artificial limb. Right lower extremity contains chronic ulcer with wound VAC in place. Appears to be physically deconditioned but overall no acute distress. Head/Face: Normocephalic, atraumatic. Eyes: Pupils equal round and reactive to light, extra-ocular motions intact. Lids and lashes normal. Conjunctiva and sclera are not injected. Cornea within normal limits. Periorbital areas with no swelling, redness, or edema. ENT: Nares patent. No nasal discharge, no septal abnormalities noted. Tympanic membranes are normal and external auditory canals are clear. Oropharynx with no redness, swelling, or masses, exudates, or evidence of obstruction, uvula midline. Mucous membranes moist. Neck: Trachea midline, no thyromegaly or masses palpated, and no cervical lymphadenopathy. Supple, full range of motion without nuchal rigidity, or vertebral point tenderness. Chest/axilla: Normal chest wall appearance and motion. Nontender with no deformity. No lesions are appreciated. Cardiovascular: Regular rate and rhythm with a normal S1 and S2. No gallops, murmurs, or rubs. Normal PMI, no JVD. No pulse deficits. Respiratory: Lungs have equal breath sounds bilaterally, clear to auscultation and percussion. No rales, rhonchi or wheezes noted. No increased work of breathing, no retractions or nasal flaring. Abdomen/GI: Soft, with normal bowel sounds. No distension or tympany. No guarding or rebound. No evidence of tenderness throughout. Back: No spinal tenderness. No costovertebral tenderness. Skin: Warm, dry with normal turgor. Normal color with no rashes, no lesions, and no evidence of cellulitis. MS/ Extremity: Pulses equal, no cyanosis. Neurovascular intact. Chronic left below-knee amputation chronic right lower extremity pressure ulcer. Neuro: Awake and alert, GCS 15, oriented to person, place, time, and situation. Cranial nerves II-XII grossly intact. Motor strength 5/5 in all extremities. Sensory grossly intact. Psych: Awake, alert, with orientation to person, place and time. Behavior, mood, and affect are within normal limits 07:29 ECG was reviewed by the Attending Physician. EKG at 0 613 normal sinus rhythm sp4 first-degree AV block Vital Signs: 04:40 BP 110 / 55; Pulse 61; Resp 18; Temp 98.5; Pulse Ox 98% on R/A; Weight 86.18 kg; Height al5 6 ft. 2 in. ; 07:30 BP 101 / 81; Pulse 76; Resp 16; Pulse Ox 96% on R/A; db 08:30 BP 111 / 45; Pulse 69; Resp 16; Pulse Ox 96% on R/A; db 04:40 Body Mass Index 24.39 (86.18 kg, 187.96 cm) al5 [place] Coma Score: 07:29 Eye Response: spontaneous(4). Motor Response: obeys commands(6). Verbal Response: sp4 oriented(5). Total: 15. MDM: 04:41 Medical Screening Exam initiated sp4 07:18 ED course: EXAM: XR Chest, 1 View CLINICAL HISTORY: The patient is 79 years old and is sp4 Male; Congestion. TECHNIQUE: Single view of the chest. COMPARISON: No relevant prior studies available. FINDINGS: Lungs: No pulmonary vascular congestion or consolidation. Pleural space: Unremarkable. No pneumothorax. Heart: Cardiomegaly status post CABG surgery. Mediastinum: Unremarkable. Bones/joints: Sternal closure wires. No acute rib fracture. Upper abdomen: No free air in the visualized upper abdomen. IMPRESSION: 1. No acute cardiopulmonary process identified. 2. Cardiomegaly status post CABG surgery. Electronically signed by: Yolie Wharton MD . 07:29 Differential diagnosis: DKA, hyperglycemia, hyperthyroidism, hypothyroidism. Data sp4 reviewed: vital signs, nurses notes, lab test result(s), EKG, radiologic studies, plain films. Consideration of Admission/Observation Escalation of care including admission/observation considered. 07:34 Management of patient was discussed with the following: Hogshead Hooper: . Transition of [facility] care: After a detail discussion of the patient's case, care is transferred to Davon Arredondo MD. 07:34 ED course: Patient is awaiting for blood sugar to decrease after insulin IV. . sp4 06/15 04:46 Order name: Basic Metabolic Panel; Complete Time: 07:16 sp 06/15 04:46 Order name: CBC with Diff; Complete Time: 08:48 sp4 06/15 04:46 Order name: LFT's; Complete Time: 07:16 sp 06/15 04:46 Order name: Magnesium; Complete Time: 07:16 sp 06/15 04:46 Order name: NT PRO-BNP; Complete Time: 07:16 sp4 06/15 04:46 Order name: PT-INR; Complete Time: 07:00 sp4 06/15 04:46 Order name: Troponin HS; Complete Time: 07:16 sp4 06/15 04:47 Order name: COVID-19 Ag + Flu A+B Ag; Complete Time: 07:00 sp4 06/15 04:47 Order name: Lipase; Complete Time: 07:16 sp 06/15 06:24 Order name: Glucose, Ancillary Testing; Complete Time: 07:00 [facility] 06/15 08:45 Order name: CBC Smear Scan; Complete Time: 08:48 [facility] 06/15 08:59 Order name: Glucose, Ancillary Testing [facility] 06/15 04:46 Order name: XRAY Chest (1 view); Complete Time: 07:51 [facility] 06/15 04:46 Order name: EKG; Complete Time: 04:47 [facility] 06/15 04:46 Order name: Cardiac monitoring; Complete Time: 06:05 [facility] 06/15 04:46 Order name: EKG - Nurse/Tech; Complete Time: 06:14 [facility] 06/15 04:46 Order name: IV Saline Lock; Complete Time: 06:05 [facility] 06/15 04:46 Order name: Labs collected and sent; Complete Time: 06:05 [facility] 06/15 04:46 Order name: O2 Per Protocol; Complete Time: 06:05 [facility] 06/15 04:46 Order name: O2 Sat Monitoring; Complete Time: 06:05 [facility] 06/15 08:19 Order name: Blood Glucose Level; Complete Time: 09:02 laila EC:13 Rate is 65 beats/min. Rhythm is regular, Sinus Rhythm. Right axis deviation noted. PA sp4 interval is prolonged. QRS interval is normal. QT interval is normal. No Q waves. T waves are Normal. No ST changes noted. Clinical impression: No evidence of ischemia. Interpreted by me. Reviewed by me. Administered Medications: 06:24 Drug: NS 0.9% IV 1000 ml IV at 1 bolus Per protocol; to be given as a bolus over 60 al5 minutes Route: IV; Rate: 1 bolus; Site: right forearm; 09:00 Follow up: Response: No adverse reaction; IV Status: Completed infusion; IV Intake: db 1000ml 06:24 Drug: Dextromethorphan-Guaifenesin PO Liquid 10 mg-100 mg/5 mL 20 ml PO once Route: PO; al5 09:00 Follow up: Response: No adverse reaction db 06:24 Drug: Promethazine PO 25 mg PO once Route: PO; al5 09:00 Follow up: Response: No adverse reaction db 07:43 Drug: Insulin Glargine Sub-Q 30 units Sub-Q once {Co-Signature: ph (Sharlene Blackman db RN).} Route: Sub-Q; Site: right upper abdomen; 09:23 Follow up: Response: No adverse reaction db 08:35 Drug: Insulin Regular Human IVP 10 units IVP once {Co-Signature: ph (Sharlene Blackman RN).} Route: IVP; Site: right antecubital; 09:00 Follow up: Response: No adverse reaction db 08:45 Drug: Insulin Regular Human Sub-Q 10 units Sub-Q once {Co-Signature: ph (Sharlene Blackman RN).} Route: Sub-Q; Site: left upper abdomen; 09:00 Follow up: Response: No adverse reaction db Point of Care Testing: Blood Glucose: 08:49 Blood Glucose: 399 mg/dL; db Ranges: Critical Glucose Levels:Adult <50 mg/dl or >400 mg/dl <40 mg/dl or >180 mg/dl Disposition Summary: 06/15/24 08:20 Discharge Ordered Notes: Location: Home laila Problem: new laila Symptoms: have improved laila Condition: Stable laila Diagnosis - Type 1 diabetes mellitus with hyperglycemia laila - Encounter for change or removal of nonsurgical wound dressing laila - Weakness laila Followup: laila - With: Private Physician - When: 2 - 3 days - Reason: Recheck today's complaints, Continuance of care, Re-evaluation by your physician Followup: laila - With: Dimas Kendrick MD - When: Upon discharge from the Emergency Department - Reason: Recheck today's complaints, Continuance of care, Re-evaluation by your physician Discharge Instructions: - Discharge Summary Sheet laila - Hyperglycemia laila - Weakness laila - Fatigue laila - Diabetes Mellitus and Nutrition, Adult laila - Weakness, [id number] laila - Hyperglycemia, [id number] laila Forms: - Medication Reconciliation Form laila - Antibiotic Education laila - Prescription Opioid Use laila - Patient Portal Instructions laila - Leadership Thank You Letter laila Signatures: Dispatcher [employer] EDMS Davon Arredondo MD MD cha Benton, Danielle RN RN db All Wyatt MD MD sp4 Ana Paula Oh RN RN al5 Sharlene Blackman RN ph Corrections: (The following items were deleted from the chart) 04:47 04:47 COVID-19 Ag + Flu A+B [id number] ordered. EDMS EDMS
--- NOTE | 2024-06-15 08:20 | ER ---
Nurse's Notes [facility] Name: Navjot Collins Age: 79 yrs Sex: Male : 1945 Arrival Date: 06/15/2024 Time: 04:36 Bed 8 Private MD: Diagnosis: Type 1 diabetes mellitus with hyperglycemia;Encounter for change or removal of nonsurgical wound dressing;Weakness Presentation: 06/15 04:40 Chief complaint: Patient states: c/o not feeling right, feels like his blood sugar is al5 high. Coronavirus screen: At this time, the client does not indicate any symptoms associated with coronavirus-19. Ebola Screen: No symptoms or risks identified at this time. Initial Sepsis Screen: Does the patient meet any 2 criteria? No. Patient's initial sepsis screen is negative. Does the patient have a suspected source of infection? No. Patient's initial sepsis screen is negative. Risk Assessment: Do you want to hurt yourself or someone else? Patient reports no desire to harm self or others. Onset of symptoms was June 15, 2024. 04:40 Method Of Arrival: EMS: [facility] al5 04:40 Acuity: ZENAIDA 3 al5 04:40 Care prior to arrival: Medication(s) given: Normal saline infusion, IV initiated. 20 al5 GA, in the right forearm, Glucose check: 462. Triage Assessment: 04:42 General: Appears in no apparent distress. comfortable, Behavior is calm, cooperative. al5 Pain: Denies pain. EENT: No signs and/or symptoms were reported regarding the EENT system. Neuro: Level of Consciousness is awake, alert, obeys commands, Oriented to person, place, time, situation. Cardiovascular: Capillary refill < 3 seconds Patient's skin is warm and dry. Respiratory: Airway is patent Respiratory effort is even, unlabored, Respiratory pattern is regular, symmetrical. GI: Reports high blood sugar. : No signs and/or symptoms were reported regarding the genitourinary system. Derm: Skin is intact, Skin is pink, warm \T\ dry. normal, wound vac attached to diabetic wound on patient R leg. Musculoskeletal: L BKA. Historical: - Allergies: 04:42 Codeine; al5 04:42 Demerol; al5 04:42 fedrazil; al5 04:42 Vicodin; al5 - PMHx: 04:42 Atrial Fib; CAD; CHF; Diabetes - IDDM; HTN; PROSTATE CA; Right foot wound with wound al5 vac in place (Unknown); - PSHx: 04:42 Bladder; Coronary artery bypass graft; Left BKA; prostate; Stented artery; al5 - Immunization history:: Adult Immunizations up to date. - Infectious Disease History:: Denies. - Social history:: Smoking status: Patient denies any tobacco usage or history of. - Family history:: not pertinent. Screenin:44 [facility] ED Fall Risk Assessment (Adult) History of falling in the last 3 months, al5 including since admission No falls in past 3 months (0 pts) Confusion or Disorientation No (0 pts) Intoxicated or Sedated No (0 pts) Impaired Gait Yes (1 pt) Mobility Assist Device Used Yes (1 pt) Altered Elimination Yes (1 pt) Score/Fall Risk Level 3 or more points = High Risk Oriented to surroundings, Maintained a safe environment, Hourly rounding (assess needs \T\ fall precautionary measures) done. Abuse screen: Denies threats or abuse. Denies injuries from another. Nutritional screening: No deficits noted. Tuberculosis screening: No symptoms or risk factors identified. Assessment: 04:44 Reassessment: see triage assessment. al5 07:15 Reassessment: Patient appears in no apparent distress at this time. Patient and/or db family updated on plan of care and expected duration. Pain level reassessed. Patient is alert, oriented x 3, equal unlabored respirations, skin warm/dry/pink. General: Appears in no apparent distress. comfortable, Behavior is calm, cooperative. Neuro: Level of Consciousness is awake, alert, obeys commands, Oriented to person, place, time. Cardiovascular: No deficits noted. Respiratory: Airway is patent Respiratory effort is even, unlabored, Respiratory pattern is regular, symmetrical. 08:30 Reassessment: Patient appears in no apparent distress at this time. Patient and/or db family updated on plan of care and expected duration. Pain level reassessed. Patient is alert, oriented x 3, equal unlabored respirations, skin warm/dry/pink. 08:45 Reassessment: PATIENT PROVIDED FOOD. db Vital Signs: 04:40 BP 110 / 55; Pulse 61; Resp 18; Temp 98.5; Pulse Ox 98% on R/A; Weight 86.18 kg; Height al5 6 ft. 2 in. ; 07:30 BP 101 / 81; Pulse 76; Resp 16; Pulse Ox 96% on R/A; db 08:30 BP 111 / 45; Pulse 69; Resp 16; Pulse Ox 96% on R/A; db 04:40 Body Mass Index 24.39 (86.18 kg, 187.96 cm) al5 Stephenson Coma Score: 07:29 Eye Response: spontaneous(4). Motor Response: obeys commands(6). Verbal Response: sp4 oriented(5). Total: 15. ED Course: 04:38 Patient arrived in ED. jj6 04:40 All Wyatt MD is Attending Physician. al5 04:42 Triage completed. al5 04:44 Arm band placed on right wrist. Patient placed in the treatment room, in view of staff al5 members, on pulse oximetry. 04:44 Patient has correct armband on for positive identification. Bed in low position. Call al5 light in reach. Side rails up X 1. Provided Education on: plan of care. 04:44 No provider procedures requiring assistance completed. Maintain EMS IV. Dressing al5 intact. Good blood return noted. Site clean \T\ dry. Gauge \T\ site: 20G RFA. Flushed with 10 mL NS. 05:18 XRAY Chest (1 view) In Process Unspecified. EDMS 06:05 Ana Paula Oh, JUDE is Primary Nurse. al5 07:29 Attending Physician role handed off by All Wyatt MD laila 07:29 Davon Arredondo MD is Attending Physician. laila 08:20 Dimas Kendrick MD is Referral Physician. laila 09:20 Pulse ox on. NIBP on. Pillow given. db 09:20 IV discontinued, intact, bleeding controlled, No redness/swelling at site. db Administered Medications: 06:24 Drug: NS 0.9% IV 1000 ml IV at 1 bolus Per protocol; to be given as a bolus over 60 al5 minutes Route: IV; Rate: 1 bolus; Site: right forearm; 09:00 Follow up: Response: No adverse reaction; IV Status: Completed infusion; IV Intake: db 1000ml 06:24 Drug: Dextromethorphan-Guaifenesin PO Liquid 10 mg-100 mg/5 mL 20 ml PO once Route: PO; al5 09:00 Follow up: Response: No adverse reaction db 06:24 Drug: Promethazine PO 25 mg PO once Route: PO; al5 09:00 Follow up: Response: No adverse reaction db 07:43 Drug: Insulin Glargine Sub-Q 30 units Sub-Q once {Co-Signature: ph (Sharlene Blackman RN).} Route: Sub-Q; Site: right upper abdomen; 09:23 Follow up: Response: No adverse reaction db 08:35 Drug: Insulin Regular Human IVP 10 units IVP once {Co-Signature: ph (Sharlene Blackman RN).} Route: IVP; Site: right antecubital; 09:00 Follow up: Response: No adverse reaction db 08:45 Drug: Insulin Regular Human Sub-Q 10 units Sub-Q once {Co-Signature: ph (Sharlene Blackman RN).} Route: Sub-Q; Site: left upper abdomen; 09:00 Follow up: Response: No adverse reaction db Medication: 04:44 VIS not applicable for this client. al5 Point of Care Testing: Blood Glucose: 08:49 Blood Glucose: 399 mg/dL; db Ranges: Intake: 09:00 IV: 1000ml; Total: 1000ml. db Outcome: 08:20 Discharge ordered by MD. ulloa 09:20 Discharged to home via wheelchair, BROUGHT TO WOUND CARE db 09:20 Condition: stable 09:20 Discharge instructions given to patient, Instructed on discharge instructions, follow up and referral plans. 09:24 Patient left the ED. db Signatures: Dispatcher [employer] EDMO Davon Arredondo MD MD cha Jeffries, Jennifer jj6 Elise Melara, RN RN db All Wyatt MD MD sp4 Ana Paula Oh RN RN alSharlene Garcia RN ph
[2024-06-15] MEDS ORDERED: INSULIN REGULAR (HUMAN) 100 UNIT/ML ONE ×2 (08:42→08:54)
[2024-06-15 08:45] LABS: Blood Morphology Comment NOT SEEN (NOT SEEN); Platelet Estimate ADEQ; White Blood Cell Scan OK (OK)
[2024-06-15 09:29] VITALS: TEMP 98.5
[2024-06-15 09:30] VITALS: O2SAT 96
[2024-06-15 09:31] VITALS: BP 111/45
--- NOTE | 2024-06-16 08:39 | EKG ---
Test Date: 2024-06-15 Test Time: 06:13:35 Law Researcher: RV MEASUREMENT RESULTS: Intervals: Rate: 65 OK: 238 QRSD: 114 QT: 468 QTc: 486 [place]: P: 100 OK: 238 QRS: 113 T: -54 INTERPRETIVE STATEMENTS: Suspect arm lead reversal, interpretation assumes no reversal Sinus rhythm with 1st degree AV block Right axis deviation Septal infarct, age undetermined T wave abnormality, consider inferior ischemia Abnormal ECG Compared to ECG 05/18/2024 12:36:02 Myocardial infarct finding now present Sinus bradycardia no longer present Prolonged QT interval no longer present T-wave abnormality still present Possible ischemia still present Electronically Signed On 06-16-24 08:35:59 CDT by Joseph Flores
== END 2024-06-15 09:24 | disposition home or self-care (01) ==
LOC: ER 04:36
DX: E10.65 Type 1 diabetes mellitus with hyperglycemia (principal); R05.9 Cough, unspecified; Z48.00 Encounter for change or removal of nonsurgical wound dressing; Z11.52 Encounter for screening for COVID-19; Z89.512 Acquired absence of left leg below knee; Z95.1 Presence of aortocoronary bypass graft
CPT/HCPCS: 93005; 85025; 80048; 36415; 83735; 85610; 82947 ×2; 80076; 84484; 83690; 83880; 71045; 87428; Q0169; J1815 ×2; J7030

== ENCOUNTER 2024-06-15 10:14 | Inpatient (IN) | payer BC, OTHER ==
--- NOTE | 2024-06-15 11:44 | RAD REPORT ---
EXAMINATION: ONE VIEW CHEST XR CLINICAL INDICATION: COUGH TECHNIQUE: Frontal chest projection is submitted. Examination is limited by patient positioning and t echnique. 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 The heart is upper limi t of normal in size. No displaced fractures identified. Sternotomy wires. IMPRESSION: No acute intrathoracic abnormalities.
--- NOTE | 2024-06-15 11:54 | RAD REPORT ---
EXAMINATION: XR LEFT FOOT CLINICAL INDICATION: PAIN TECHNIQUE: Multiple projections of the left foot were obtained. COMPARISON: No prior exam. FINDINGS: Evidence of previous fifth toe amputation. Areas of subtle demineralization seen fifth meta tarsal head. Subtle demineralization also seen at the fourth metatarsal head and base of the proximal phalanx of the fourth toe. Soft tissue wound is present laterally with possible fracture inv olving the base of the fifth metatarsal. Osteomyelitis is likely present. Heavy atherosclerosis. Small calcaneal spurs. MRI follow-up may be helpful for further characterization.
[2024-06-15] MEDS ORDERED: NA CHLORIDE 0.9% 250 ML ONE ×2 (11:57→13:25)
[2024-06-15] MEDS ORDERED: ONDANSETRON 4 MG/2 ML VIAL ONE (11:57)
[2024-06-15] MEDS ORDERED: FENTANYL CITR 100 MCG/2 ML ONE (11:57)
[2024-06-15 12:04] LABS: Absolute Basophils 0.1 K/uL (0-0.5); Absolute Eosinophils 0.1 K/uL (0-0.5); Absolute Lymphocytes (CBC) 0.7 K/uL (0.7-4.9); Absolute Monocytes 1.3 K/uL (0.1-1.3); Absolute Neutrophil 13.8 K/uL (1.8-8.0); Basophils % 0.7 % (0-1.3); Eosinophils % 0.5 % (0-4.4); Hematocrit 37.5 % (39.6-49.0); Hemoglobin 12.3 g/dL (13.6-17.9); Lymphocytes % 4.4 % (15.3-44.8); MCH 25.2 pg (27.0-35.0); MCHC 32.8 g/dL (32.0-36.0); MCV 76.9 fL (80-100); MPV 7.1 fL (7.6-11.3); Monocytes % 8.3 % (3.3-12.3); Neutrophils % 86.1 % (41.7-73.7); Platelets 364 thou/uL (152-406); RBC Red Blood Cell Count 4.87 M/uL (4.33-5.43); Red Cell Distribution Width 16.5 % (12.1-15.2)
--- NOTE | 2024-06-15 12:04 | ER ---
Nurse's Notes [facility] Name: Navjot Collins Age: 79 yrs Sex: Male : 1945 Arrival Date: 06/15/2024 Time: 10:14 Bed 20 Private MD: Diagnosis: Cellulitis of other parts of limb-RIGHT FOOT , LOWER EXT;Type 1 diabetes mellitus with hyperglycemia;Elevated white blood cell count;Cardiomegaly Presentation: 06/15 10:37 Chief complaint: Patient states: has a chronic wound on right foot, went to wound iw healing this morning and there was new redness on the foot, he was in the ER this morning. Coronavirus screen: At this time, the client does not indicate any symptoms associated with coronavirus-19. Ebola Screen: No symptoms or risks identified at this time. Initial Sepsis Screen: Does the patient meet any 2 criteria? No. Patient's initial sepsis screen is negative. Does the patient have a suspected source of infection? No. Patient's initial sepsis screen is negative. Risk Assessment: Do you want to hurt yourself or someone else? Patient reports no desire to harm self or others. 10:37 Method Of Arrival: Wheelchair iw 10:37 Acuity: ZENAIDA 3 iw Historical: - Allergies: 10:40 Codeine; iw 10:40 Demerol; iw 10:40 fedrazil; iw 10:40 Vicodin; iw - PMHx: 10:40 Atrial Fib; CAD; CHF; Diabetes - IDDM; HTN; PROSTATE CA; Right foot wound with wound iw vac in place (Unknown); - PSHx: 10:40 Bladder; Coronary artery bypass graft; Left BKA; prostate; Stented artery; iw - Immunization history:: Adult Immunizations not up to date. - Infectious Disease History:: Denies. - Social history:: Smoking status: Patient denies any tobacco usage or history of. Screenin:02 [facility] ED Fall Risk Assessment (Adult) History of falling in the last 3 months, ld1 including since admission No falls in past 3 months (0 pts) Confusion or Disorientation No (0 pts) Intoxicated or Sedated No (0 pts) Impaired Gait No (0 pts) Mobility Assist Device Used No (0 pt) Altered Elimination No (0 pt) Score/Fall Risk Level 0 - 2 = Low Risk Oriented to surroundings, Hourly rounding (assess needs \T\ fall precautionary measures) done. Abuse screen: Denies threats or abuse. Denies injuries from another. Nutritional screening: No deficits noted. Tuberculosis screening: No symptoms or risk factors identified. Assessment: 12:02 General: Appears in no apparent distress. uncomfortable, Behavior is calm, cooperative, ld1 appropriate for age. Pain: Denies pain. Neuro: Level of Consciousness is awake, alert, obeys commands, Oriented to person, place, time, situation. Cardiovascular: Capillary refill < 3 seconds Patient's skin is warm and dry. Respiratory: Airway is patent Respiratory effort is even, unlabored. GI: Abdomen is flat, non-distended. GI: Reports nausea, vomiting. : No signs and/or symptoms were reported regarding the genitourinary system. EENT: No signs and/or symptoms were reported regarding the EENT system. Derm: No signs and/or symptoms reported regarding the dermatologic system. Musculoskeletal: No signs and/or symptoms reported regarding the musculoskeletal system. 13:00 Reassessment: Patient appears in no apparent distress at this time. No changes from ld1 previously documented assessment. Patient and/or family updated on plan of care and expected duration. Pain level reassessed. 14:00 Reassessment: Patient appears in no apparent distress at this time. No changes from ld1 previously documented assessment. Patient and/or family updated on plan of care and expected duration. Pain level reassessed. Patient states symptoms have not improved. 15:00 Reassessment: Patient appears in no apparent distress at this time. No changes from ld1 previously documented assessment. Vital Signs: 10:37 BP 92 / 57; Pulse 77; Resp 18; Temp 98.4; Pulse Ox 100% on R/A; Weight 86.18 kg; Height iw 6 ft. 2 in. ; 11:34 BP 126 / 67 LA Supine (auto/reg); Pulse 88 MON; Resp 18 S; Temp 98.5(O); Pulse Ox 100% ld1 on R/A; Weight 86.18 kg (R); Height 6 ft. 2 in. (R); Pain 0/10; 12:02 BP 128 / 71; Pulse 86; Resp 18; Pulse Ox 96% on R/A; ld1 13:41 BP 119 / 95; Pulse 88; Resp 18; Pulse Ox 95% on R/A; ld1 15:00 BP 121 / 76; Pulse 84; Resp 18; Pulse Ox 97% on R/A; ld1 11:34 Body Mass Index 24.39 (86.18 kg, 187.96 cm) ld1 11:34 Pain Scale: Adult ld1 [place] Coma Score: 11:53 Eye Response: spontaneous(4). Motor Response: obeys commands(6). Verbal Response: laila oriented(5). Total: 15. ED Course: 10:17 Patient arrived in ED. cj3 10:24 Yan Asher MD is Attending Physician. ec2 10:24 Davon Arredondo MD is Attending Physician. ec2 10:39 Triage completed. iw 10:40 Arm band placed on. iw 11:29 XRAY Chest (1 view) In Process Unspecified. EDMS 11:29 Foot Left 3 View XRAY In Process Unspecified. EDMS 11:29 Patient placed in an exam room, on a stretcher. ll1 11:37 Riya Jacobo, JUDE is Primary Nurse. ld1 12:02 Dav Locke MD is Hospitalizing Provider. laila 12:02 Patient has correct armband on for positive identification. Placed in gown. Bed in low ld1 position. Call light in reach. Side rails up X2. Pulse ox on. NIBP on. Door closed. Noise minimized. Warm blanket given. 12:02 No provider procedures requiring assistance completed. Inserted saline lock: 20 gauge ld1 in right antecubital area, using aseptic technique. Blood collected. Flushed with 10 mL NS. 12:21 Blood Culture Adult (2) Sent. ld1 12:21 Lactate w/ 2H reflex if indic. Sent. ld1 13:00 Patient admitted, IV remains in place. ld1 19:22 Primary Nurse role handed off by Riya Jacobo, RN rv1 Administered Medications: 11:00 Drug: fentaNYL (PF) IVP 50 mcg IVP once; Verbal order per Dr. Arredondo Route: IVP; iw Site: right antecubital; 11:30 Follow up: Response: No adverse reaction iw 12:04 Drug: NS 0.9% IV 1000 ml IV at 125 ml/hr once Route: IV; Rate: 125 ml/hr; Site: right ld1 antecubital; 16:31 Follow up: IV Status: Infusion continued iw 13:30 Drug: Cefepime IVPB 1 grams IVPB at 200 ml/hr once over 30 mins; (mix in NS 100 mL) ld1 Route: IVPB; Rate: 200 ml/hr; Infused Over: 30 mins; Site: right antecubital; 16:31 Follow up: IV Status: Completed infusion iw 13:40 Not Given (Physician Discretion): meropenem1 grams IV at per protocol once; (mix in NS ld1 100 mL) 13:40 Drug: Promethazine IVP 12.5 mg IVP once Route: IVP; Site: right antecubital; ld1 13:41 Follow up: Response: No adverse reaction ld1 14:12 Drug: vancoMYCIN IVPB 1 grams IVPB once over 2 hrs Route: IVPB; Infused Over: 2 hrs; ld1 Site: right antecubital; 16:31 Follow up: Response: No adverse reaction; IV Status: Completed infusion; IV Intake: iw 250ml 14:24 Not Given (Other Intervention Used): cefepime1 grams IM once ld1 Medication: 12:02 VIS not applicable for this client. ld1 Intake: 16:31 IV: 250ml; Total: 250ml. iw Outcome: 12:03 Decision to Hospitalize by Provider. laila 13:00 Admitted to ER Hold. Please see [facility] for further documentation. ld1 13:00 Condition: stable 13:00 Instructed on the need for admit, 20:13 Patient left the ED. vc1 Signatures: Dispatcher [employer] Davon Gregg MD MD cha Williams, Irene, RN RN iw Malena Tovar RN RN ll1 Riya Jacobo RN RN ld1 Shauna Cao RN RN vc1 Shannon Flores Edwin, MD MD ec2 Johnson, Celeste 3 Corrections: (The following items were deleted from the chart) 14:24 13:41 Cefepime IM 1 grams IM in Other ld1 ld1
--- NOTE | 2024-06-15 12:04 | EDPHYS ---
Physician Documentation [facility] Name: Navjot Collins Age: 79 yrs Sex: Male : 1945 Arrival Date: 06/15/2024 Time: 10:14 Bed 20 Private MD: MIKAEL Physician Davon Arredondo HPI: 06/15 11:52 This 79 yrs old Male presents to ER via Wheelchair with complaints of Cough, laila Wound Check, High Blood Sugar. 11:52 The patient or guardian reports cough, that is intermittent. Onset: The laila symptoms/episode began/occurred 3 day(s) ago. Severity of symptoms: At their worst the symptoms were mild, moderate, in the emergency department the symptoms are unchanged. Modifying factors: The symptoms are alleviated by. Associated signs and symptoms: The patient has no apparent associated signs or symptoms. The patient has experienced similar episodes in the past, multiple times. Historical: - Allergies: 10:40 Codeine; iw 10:40 Demerol; iw 10:40 fedrazil; iw 10:40 Vicodin; iw - PMHx: 10:40 Atrial Fib; CAD; CHF; Diabetes - IDDM; HTN; PROSTATE CA; Right foot wound with wound iw vac in place (Unknown); - PSHx: 10:40 Bladder; Coronary artery bypass graft; Left BKA; prostate; Stented artery; iw - Immunization history:: Adult Immunizations not up to date. - Infectious Disease History:: Denies. - Social history:: Smoking status: Patient denies any tobacco usage or history of. ROS: 11:53 Constitutional: Negative for fever, chills, and weight loss, Eyes: Negative for injury, laila pain, redness, and discharge, ENT: Negative for injury, pain, and discharge, Neck: Negative for injury, pain, and swelling, Cardiovascular: Negative for chest pain, palpitations, and edema, Abdomen/GI: Negative for abdominal pain, nausea, vomiting, diarrhea, and constipation, Back: Negative for injury and pain, : Negative for injury, bleeding, discharge, and swelling, MS/Extremity: Negative for injury and deformity, Skin: Negative for injury, rash, and discoloration, Neuro: Negative for headache, weakness, numbness, tingling, and seizure, Psych: Negative for depression, anxiety, suicide ideation, homicidal ideation, and hallucinations, Allergy/Immunology: Negative for hives, rash, and allergies, Endocrine: Negative for neck swelling, polydipsia, polyuria, polyphagia, and marked weight changes, Hematologic/Lymphatic: Negative for swollen nodes, abnormal bleeding, and unusual bruising, 11:53 Cardiovascular: Positive for palpitations, 11:53 Respiratory: Positive for cough, 11:53 MS/extremity: Positive for decreased range of motion, erythema, pain, warmth, of the right foot, Exam: 11:53 Constitutional: This is a well developed, well nourished patient who is awake, alert, laila and in no acute distress. Head/Face: Normocephalic, atraumatic. Eyes: Pupils equal round and reactive to light, extra-ocular motions intact. Lids and lashes normal. Conjunctiva and sclera are non-icteric and not injected. Cornea within normal limits. Periorbital areas with no swelling, redness, or edema. ENT: Nares patent. No nasal discharge, no septal abnormalities noted. Tympanic membranes are normal and external auditory canals are clear. Oropharynx with no redness, swelling, or masses, exudates, or evidence of obstruction, uvula midline. Mucous membranes moist. Neck: Trachea midline, no thyromegaly or masses palpated, and no cervical lymphadenopathy. Supple, full range of motion without nuchal rigidity, or vertebral point tenderness. No Meningismus. Chest/axilla: Normal chest wall appearance and motion. Nontender with no deformity. No lesions are appreciated. Cardiovascular: Regular rate and rhythm with a normal S1 and S2. No gallops, murmurs, or rubs. Normal PMI, no JVD. No pulse deficits. Abdomen/GI: Soft, non-tender, with normal bowel sounds. No distension or tympany. No guarding or rebound. No evidence of tenderness throughout. Back: No spinal tenderness. No costovertebral tenderness. Full range of motion. Male : Normal genitalia with no discharge or lesions. Skin: Warm, dry with normal turgor. Normal color with no rashes, no lesions, and no evidence of cellulitis. Neuro: Awake and alert, GCS 15, oriented to person, place, time, and situation. Cranial nerves II-XII grossly intact. Motor strength 5/5 in all extremities. Sensory grossly intact. Cerebellar exam normal. Normal gait. Psych: Awake, alert, with orientation to person, place and time. Behavior, mood, and affect are within normal limits. 11:53 ECG was reviewed by the Attending Physician. 11:53 Respiratory: mild respiratory distress is noted, Respirations: normal, Breath sounds: bronchial sounds, that are mild, rhonchi, that are mild, are scattered, Respiratory rate: COUGH 11:53 Musculoskeletal/extremity: Circulation is intact in all extremities. Sensation intact. Compartment Syndrome exam of affected extremity: is normal. DVT Exam: pain, swelling, tenderness, erythema, that is mild, of the right leg, Vital Signs: 10:37 BP 92 / 57; Pulse 77; Resp 18; Temp 98.4; Pulse Ox 100% on R/A; Weight 86.18 kg; Height iw 6 ft. 2 in. ; 11:34 BP 126 / 67 LA Supine (auto/reg); Pulse 88 MON; Resp 18 S; Temp 98.5(O); Pulse Ox 100% ld1 on R/A; Weight 86.18 kg (R); Height 6 ft. 2 in. (R); Pain 0/10; 12:02 BP 128 / 71; Pulse 86; Resp 18; Pulse Ox 96% on R/A; ld1 13:41 BP 119 / 95; Pulse 88; Resp 18; Pulse Ox 95% on R/A; ld1 15:00 BP 121 / 76; Pulse 84; Resp 18; Pulse Ox 97% on R/A; ld1 11:34 Body Mass Index 24.39 (86.18 kg, 187.96 cm) ld1 11:34 Pain Scale: Adult ld1 Gerda Coma Score: 11:53 Eye Response: spontaneous(4). Motor Response: obeys commands(6). Verbal Response: laila oriented(5). Total: 15. MDM: 10:34 Medical Screening Exam initiated laila 11:59 Differential diagnosis: closed fracture, contusion, tendonitis, fracture, sprain, laila foreign body, penetrating trauma. Differential Diagnosis: Influenza Upper Respiratory Infection Pneumonia. Data reviewed: vital signs, nurses notes, lab test result(s), EKG, radiologic studies, plain films. Consideration of Admission/Observation Patient was admitted/placed on observation. Escalation of care including admission/observation considered. I considered the following discharge prescriptions or medication management in the emergency department Medications were administered in the Emergency Department. See MAR. Independent interpretation of the following test(s) in the Emergency Department X-Ray: My interpretation is RIGHT FOOT. Test considered but Not performed: MRI: NO MRI FOOT. Historians other than the Patient: PT WELL INFORMED. Care significantly affected by the following chronic conditions: Diabetes, Hypertension, Congestive Heart Failure, Obesity, Cancer, Chronic Kidney Disease. 06/15 10:35 Order name: Basic Metabolic Panel [facility] 06/15 10:35 Order name: CBC with Diff [facility] 06/15 10:35 Order name: LFT's [facility] 06/15 10:35 Order name: Magnesium [facility] 06/15 10:35 Order name: NT PRO-BNP [facility] 06/15 10:35 Order name: PT-INR [facility] 06/15 10:35 Order name: Troponin HS [facility] 06/15 10:35 Order name: CRP [facility] 06/15 10:35 Order name: Urinalysis w/ reflexes [facility] 06/15 12:04 Order name: Lactate w/ 2H reflex if indic. [facility] 06/15 12:04 Order name: Blood Culture Adult (2) [facility] 06/15 12:33 Order name: CBC Smear Scan [facility] 06/15 13:00 Order name: Ghost Lactate-NO COLLECT Timer [facility] 06/15 13:05 Order name: CBC with Automated Diff [facility] 06/15 13:05 Order name: CBC with Automated Diff [facility] 06/15 13:05 Order name: CBC with Automated Diff [facility] 06/15 13:05 Order name: CBC with Automated Diff [facility] 06/15 13:05 Order name: CBC with Automated Diff [facility] 06/15 13:05 Order name: Comprehensive Metabolic Panel [facility] 06/15 13:05 Order name: Comprehensive Metabolic Panel [facility] 06/15 13:05 Order name: Comprehensive Metabolic Panel [facility] 06/15 13:05 Order name: Comprehensive Metabolic Panel [facility] 06/15 13:05 Order name: Comprehensive Metabolic Panel [facility] 06/15 17:10 Order name: Glucose, Ancillary Testing [facility] 06/15 17:28 Order name: Lactate Sepsis 2 HR Follow-up [facility] 06/15 10:35 Order name: XRAY Chest (1 view); Complete Time: 12:05 [facility] 06/15 10:35 Order name: Foot Left 3 View XRAY; Complete Time: 12:05 [facility] 06/15 13:05 Order name: Foot Right Wo Cont [facility] 06/15 10:35 Order name: EKG; Complete Time: 10:35 [facility] 06/15 10:35 Order name: Cardiac monitoring; Complete Time: 12: [facility] 06/15 10:35 Order name: EKG - Nurse/Tech; Complete Time: 12:21 [facility] 06/15 10:35 Order name: IV Saline Lock; Complete Time: 12: [facility] 06/15 10:35 Order name: Labs collected and sent; Complete Time: 12: [facility] 06/15 10:35 Order name: O2 Per Protocol; Complete Time: 11:38 [facility] 06/15 10:35 Order name: O2 Sat Monitoring; Complete Time: 11:38 [facility] EC:53 Rate is 76 beats/min. QRS [place] is Normal. AL interval is normal. QRS interval is laila normal. QT interval is normal. No Q waves. T waves are Normal. No ST changes noted. Clinical impression: Abnormal EKG without significant change and No evidence of ischemia. Interpreted by me. Reviewed by me. Administered Medications: 11:00 Drug: fentaNYL (PF) IVP 50 mcg IVP once; Verbal order per Dr. Arredondo Route: IVP; iw Site: right antecubital; 11:30 Follow up: Response: No adverse reaction iw 12:04 Drug: NS 0.9% IV 1000 ml IV at 125 ml/hr once Route: IV; Rate: 125 ml/hr; Site: right ld1 antecubital; 16:31 Follow up: IV Status: Infusion continued iw 13:30 Drug: Cefepime IVPB 1 grams IVPB at 200 ml/hr once over 30 mins; (mix in NS 100 mL) ld1 Route: IVPB; Rate: 200 ml/hr; Infused Over: 30 mins; Site: right antecubital; 16:31 Follow up: IV Status: Completed infusion iw 13:40 Not Given (Physician Discretion): meropenem1 grams IV at per protocol once; (mix in NS ld1 100 mL) 13:40 Drug: Promethazine IVP 12.5 mg IVP once Route: IVP; Site: right antecubital; ld1 13:41 Follow up: Response: No adverse reaction ld1 14:12 Drug: vancoMYCIN IVPB 1 grams IVPB once over 2 hrs Route: IVPB; Infused Over: 2 hrs; ld1 Site: right antecubital; 16:31 Follow up: Response: No adverse reaction; IV Status: Completed infusion; IV Intake: iw 250ml 14:24 Not Given (Other Intervention Used): cefepime1 grams IM once ld1 Disposition Summary: 06/15/24 12:03 Hospitalization Ordered Notes: Hospitalization Status: Inpatient Admission laila Provider: Dav Locke cha Condition: Fair laila Problem: new laila Symptoms: have improved laila Bed/Room Type: Standard laila Location: Telemetry/MedSurg (Inpatient)(06/15/24 18:16) bd Room Assignment: 216(06/15/24 18:16) bd Diagnosis - Cellulitis of other parts of limb - RIGHT FOOT , LOWER EXT laila - Type 1 diabetes mellitus with hyperglycemia laila - Elevated white blood cell count laila - Cardiomegaly laila Forms: - Medication Reconciliation Form laila - SBAR form laila - Leadership Thank You Letter laila Signatures: Dispatcher [employer] EDMS Ariadna Huntley Corey, MD MD cha Williams, Irene, RN RN Madeline Abreu RN RN Tomi Bangura FNP-C OPERATIONS VICE PRESIDENT-Cla1 Riya Jacobo RN RN ld1 Corrections: (The following items were deleted from the chart) 10:36 10:36 Foot Left 3 View+RAD.RAD.BRZ ordered. EDMS EDMS 15:31 12:03 Telemetry/MedSurg (Inpatient) laila bd 15:31 12:03 laila bd 15:56 15:31 BR ER HOLD bd bd 15:56 15:31 ERHOLD- bd bd 16:37 15:56 Telemetry/MedSurg (Inpatient) bd ss 16:37 15:56 407 bd ss 18:06 16:37 BR ER HOLD ss ss 18:06 16:37 ERHOLD- ss ss 18:09 18:06 228 ss ss 18:10 18:06 Telemetry/MedSurg (Inpatient) ss ss 18:10 18:09 216 ss ss 18:16 18:10 BR ER HOLD ss bd 18:16 18:10 ERHOLD- ss bd
[2024-06-15 12:16] LABS: PT Prothrombin Time 26.1 SECONDS (10-13.0); Protime INR 2.39
[2024-06-15 12:32] LABS: AST/SGOT 11 U/L (15-37); Albumin 3.1 g/dL (3.4-5.0); Albumin/Globulin Ratio 0.6 (1.1-1.8); Alkaline Phosphatase 112 U/L (45-117); Anion Gap 11.3 mEq/L (5.0-15.0); BUN Blood Urea Nitrogen 36 mg/dL (7-18); Bicarbonate 25 mEq/L (21-32); Bilirubin Direct 0.4 mg/dL (0-0.2); Bilirubin Indirect, Calculated 0.5 mg/dL (0.2-0.8); Bilirubin Total 0.9 mg/dL (0.2-1.0); Blood Morphology Comment NOT SEEN (NOT SEEN); Globulin 4.9 g/dL (2.3-3.5); Glomerular Filtration Rate 45 ml/min (=/>90); Glucose Level 159 mg/dL (74-106); NT PRO-BNP 13141 pg/mL (<450); Platelet Estimate ADEQ; Potassium 4.3 mEq/L (3.5-5.1); Sodium Level 131 mEq/L (136-145); Troponin High Sensitivity 46.2 pg/mL (<58.9); White Blood Cell Scan OK (OK)
[2024-06-15 12:33] LABS: Magnesium 2.6 mg/dL (1.6-2.4)
[2024-06-15 12:34] LABS: ALT/SGPT < 14 U/L (16-61)
[2024-06-15] MEDS ORDERED: MORPHINE 2 MG/ML SYR IV PRN (12:56)
[2024-06-15] MEDS ORDERED: VANCOMYCIN 1 GM/VIAL ONE (13:24)
[2024-06-15] MEDS ORDERED: CEFEPIME 1 GM/VIAL ONE (13:25)
[2024-06-15] MEDS ORDERED: PROMETHAZINE INJ 25 MG/ML AMP ONE (13:25)
[2024-06-15] MEDS ORDERED: NA CHLORIDE 0.9% 100 ML ONE (13:28)
[2024-06-15] MEDS: VANCOMYCIN 500 MG in NA CHLORIDE 0.9% 100 ML IVPB SCH (14:52)
[2024-06-15] MEDS: TORSEMIDE 20 MG TAB PO SCH (14:52)
--- NOTE | 2024-06-15 16:08 | P.HP ---
Certification for Inpatient Patient admitted to: Inpatient With expected LOS: >2 Midnights Patient will require the following post-hospital care: None Practitioner: I am a practitioner with admitting privileges, knowledge of patient current condition, hospital course, and medical plan of care. Services: Services provided to patient in accordance with Admission requirements found in Title 42 Section 412.3 of the Code of Federal Regulations Patient History Date of Service: 06/15/24 Reason for admission: Right foot cellulitis/osteomyelitis History of Present Illness: 79-year-old male with history of chronic systolic congestive heart failure, CAD with previous CABG, diabetes mellitus type 2, previous left BKA, chronic right foot wound, BPH and hypertension presents to the emergency department with chief complaint of right foot wound. He has a chronic right foot wound he went to see his surgeon today and it was noted that he had erythema present overlying the wound, he was referred to the emergency department for further management. Patient was evaluated in the emergency department his labs were significant for a white blood cell count of 16.1, lactate of 2.9 creatinine 1.57 CRP 155 BNP 13,141 x-ray of the right foot was obtained which showed areas of subtle demineralization seen in the fifth metatarsal head, subtle demineralization also seen at the fourth metatarsal head and the base of the proximal phalanx of the fourth toe. Soft tissue wound is present laterally with possible fracture involving the base of the fifth metatarsal. Osteomyelitis is likely present. Started on broad-spectrum antibiotics in ED, will be admitted for further management of right foot wound with possible osteomyelitis. Allergies acetaminophen [From Vicodin] Adverse Reaction (Verified 02/08/20 05:56) Nausea/Vomiting codeine Adverse Reaction (Verified 02/08/20 05:56) Nausea/Vomiting hydrocodone bitartrate [From Vicodin] Adverse Reaction (Verified 02/08/20 05:56) Nausea/Vomiting Home Medications: Insulin Degludec [Tresiba Flextouch U-200] 40 units SQ BEDTIME 04/14/18 Tamsulosin HCl 0.4 mg PO BEDTIME 04/14/18 Sotalol HCl [Betapace*] 80 mg PO BID 6AM 6PM #60 tab 05/28/19 glipiZIDE [Glipizide ER] 10 mg PO BID 02/08/20 Dapagliflozin Propanediol [Farxiga] 5 mg PO DAILY 03/28/21 Losartan Potassium 25 mg PO DAILY 03/28/21 Rivaroxaban [Xarelto] 20 mg PO BEDTIME 03/28/21 Rosuvastatin Calcium [Crestor] 20 mg PO DAILY 03/28/21 Famotidine 20 mg PO DAILY 01/28/23 Finasteride 5 mg PO DAILY 01/28/23 Magnesium Oxide [Magnesium] 500 mg PO BID 01/28/23 Zinc Gluconate [Zinc] 30 mg PO DAILY 01/28/23 Liothyronine Sodium [Cytomel] 25 mcg PO ACB 30 Days #30 tab 01/30/23 Torsemide [Demadex*] 20 mg PO Q24H 60 Days #60 tab 03/24/23 Amox/Clavulanate [Augmentin 875-125 Tab] 875 mg PO BID 5 Days #10 tab 05/21/24 - Past Medical/Surgical History Has patient received pneumonia vaccine in the past: Yes Diabetic: Yes -: DM II -: HTN -: CKD III (Dr. Márquez/ Dr. Aguilar) -: Systolic CHF -: CAD -: HLD -: Atrial fibrillation on chronic anticoagulation -: Enlarged Prostate with LUTS -: Prostate cancer -: carotid stent -: CABG t2016 -: BKA left leg -: Prostate surgery -: bladder surgery -: skin graft Psychosocial/ Personal History: Patient lives at home with his family - Family History Father -: Heart disease Mother -: Lung disease Notes: COPD, leaking heart valve, emphysema - Social History Smoking Status: Never smoker Alcohol use: No CD- Drugs: No Caffeine use: Yes Review of Systems 10-point ROS is otherwise unremarkable Musculoskeletal: Foot Pain Physical Examination - Vital Signs Blood Pressure: 109/58 Pulse: 86 - Physical Exam General: Alert, In no apparent distress, Oriented x3 HEENT: Atraumatic, PERRLA, EOMI Neck: Supple, 2+ carotid pulse no bruit, No LAD Respiratory: Clear to auscultation bilaterally, Normal air movement Cardiovascular: Regular rate/rhythm, Normal S1 S2 Gastrointestinal: Normal bowel sounds, No tenderness Musculoskeletal: No tenderness Integumentary: Erythema (right foot) Neurological: Normal speech, Normal strength at 5/5 x4 extr, Normal affect - Studies Laboratory Data (last 24 hrs) 06/15/24 06/15/24 06/15/24 11:54 11:54 11:54 WBC 16.10 H Hgb 12.3 L D Hct 37.5 L Plt Count 364 D PT 26.1 H INR 2.39 Sodium 131 L D Potassium 4.3 BUN 36 H Creatinine 1.57 H Glucose 159 H Magnesium 2.6 H Total Bilirubin 0.9 AST 11 L ALT < 14 L Alkaline Phosphatase 112 Assessment and Plan - Plan Assessment: Severe sepsis secondary to right lower extremity cellulitis/possible osteomyelitis Chronic systolic congestive heart failure Atrial fibrillation on chronic anticoagulation CKD 3 History of CAD with history of CABG Hypertension Hyperlipidemia Diabetes mellitus type 2 BPH Plan: Severe sepsis secondary to right lower extremity cellulitis/possible o steomyelitis Blood cultures ordered and pending MRI ordered and pending Broad-spectrum antibiotics ordered Surgery consult Chronic systolic congestive heart failure Monitor volume status closely No active exacerbation at this time Continue home torsemide Atrial fibrillation on chronic anticoagulation On Xarelto outpatient and sotalol Sotalol continued, QTc within normal limits Switched from Xarelto to therapeutic Lovenox for tonight until surgery evaluation CKD 3 Monitor chemistry daily History of CAD with history of CABG Hypertension Hyperlipidemia BPH Continue home medications when verified Diabetes mellitus type 2 ACHS Accu-Chek, sliding scale insulin DVT PPX: Therapeutic Lovenox Code status: Full Discharge Plan: Home Plan to discharge in: Greater than 2 days - Advance Directives Does patient have a Living Will: No Does patient have a Durable POA for Healthcare: No - Code Status/Comfort Care Code Status Assessed: Yes (Full code) Critical Care: No Time Spent Managing Pts Care (In Minutes): 72
[2024-06-15] MEDS: INSULIN REGULAR (HUMAN) 100 UNIT/ML SQ SCH (16:30)
[2024-06-15] MEDS: BENZONATATE 100 MG CAP PO PRN (17:00)
--- NOTE | 2024-06-15 17:04 | RAD REPORT ---
Exam:Foot Right Wo Cont CLINICAL HISTORY: Foot pain. Foot swelling. Ulceration. TECHNIQUE: Axial, sagittal and coronal magnetic resonance imaging right foot obtained FINDINGS: Amputation fifth phalanx. Ulceration lateral soft tissue junction of the mid foot and forefoot. Abnormal signal involves most of the fifth metatarsal system with osteomyelitis .Arrea of low signal base of the fifth metatarsal may represent fracture. 1.7 cm area of abnormal signal lateral aspect of the calcaneus. IMPRESSION: Osteomyelitis most of the fifth metatarsal. There may be a nondisplaced pathologic fracture base of t he fifth metatarsal. 1.7 cm area of abnormal signal lateral calcaneus. This is nonspecific. This could represent a bone br uise or osteomyelitis.
[2024-06-15] MEDS ORDERED: SOTALOL HCL 80 MG TAB ONE (17:57)
[2024-06-15] MEDS: SOTALOL HCL 80 MG TAB PO SCH (18:00)
[2024-06-15] MEDS: CEFEPIME 1 GM in NA CHLORIDE 0.9% 100 ML IV SCH (23:09)
[2024-06-15] MEDS: TAMSULOSIN 0.4 MG SR CAP PO SCH (23:09)
[2024-06-15] MEDS: ENOXAPARIN 100 MG/ML SYR SQ SCH (23:09)
[2024-06-15] MEDS: ONDANSETRON 4 MG/2 ML VIAL IV PRN (23:12)
[2024-06-16 06:03] LABS: Absolute Basophils 0.1 K/uL (0-0.5); Absolute Lymphocytes (CBC) 0.9 K/uL (0.7-4.9); Absolute Monocytes 1.2 K/uL (0.1-1.3); Absolute Neutrophil 8.4 K/uL (1.8-8.0); Basophils % 0.6 % (0-1.3); Eosinophils % 0.2 % (0-4.4); Hematocrit 34.7 % (39.6-49.0); Hemoglobin 11.4 g/dL (13.6-17.9); Lymphocytes % 8.6 % (15.3-44.8); MCH 25.1 pg (27.0-35.0); MCHC 32.9 g/dL (32.0-36.0); MCV 76.2 fL (80-100); MPV 7.5 fL (7.6-11.3); Monocytes % 11.8 % (3.3-12.3); Neutrophils % 78.8 % (41.7-73.7); Platelets 298 thou/uL (152-406); RBC Red Blood Cell Count 4.56 M/uL (4.33-5.43); Red Cell Distribution Width 15.7 % (12.1-15.2)
[2024-06-16 06:16] LABS: AST/SGOT 18 U/L (15-37); Albumin 2.5 g/dL (3.4-5.0); Albumin/Globulin Ratio 0.6 (1.1-1.8); Alkaline Phosphatase 86 U/L (45-117); Anion Gap 10.3 mEq/L (5.0-15.0); BUN Blood Urea Nitrogen 37 mg/dL (7-18); Bicarbonate 26 mEq/L (21-32); Bilirubin Total 0.6 mg/dL (0.2-1.0); Globulin 4.5 g/dL (2.3-3.5); Glomerular Filtration Rate 44 ml/min (=/>90); Glucose Level 122 mg/dL (74-106); Potassium 4.3 mEq/L (3.5-5.1); Sodium Level 133 mEq/L (136-145)
[2024-06-16 06:17] LABS: ALT/SGPT < 14 U/L (16-61)
[2024-06-16 06:27] LABS: Specific Gravity 1.021 (1.005-1.030); Urine Bacteria <20 /HPF (<20); Urine Bilirubin NEGATIVE (Negative); Urine Blood 3+ (OVER) (Negative); Urine Clarity Extremely Turbid (Clear); Urine Color Yellow (Yellow); Urine Crystals Unidentified Few /HPF (None Seen); Urine Culture Reflex Order NOT NEEDED; Urine Glucose 4+ (Over) (Negative); Urine Ketones NEGATIVE (Negative); Urine Microscopic Reflex YN ORDER UMIC; Urine Mucus Slight /HPF (None Seen); Urine Nitrite NEGATIVE (Negative); Urine Protein 1+ (Negative); Urine RBC >50 /HPF (None Seen); Urine Urobilinogen Normal (Normal); Urine Yeast (Budding) Occasional /HPF (None Seen)
[2024-06-16] MEDS: NA CHLORIDE 0.9% 1,000 ML IV SCH (07:28)
--- NOTE | 2024-06-16 08:37 | EKG ---
Test Date: 2024-06-15 Test Time: 12:17:46 Manager Internal: Serena PATEL MEASUREMENT RESULTS: Intervals: Rate: 86 NC: 242 QRSD: 100 QT: 400 QTc: 478 [place]: P: 90 NC: 242 QRS: 128 T: -24 INTERPRETIVE STATEMENTS: Suspect arm lead reversal, interpretation assumes no reversal Sinus rhythm with 1st degree AV block with premature supraventricular complexes Left posterior fascicular block ST & T wave abnormality, consider inferolateral ischemia Prolonged QT Abnormal ECG Compared to ECG 06/15/2024 06:13:35 Atrial premature complex(es) now present Left posterior fascicular block now present ST (T wave) deviation now present Prolonged QT interval now present Right-axis deviation no longer present Electronically Signed On 06-16-24 08:35:33 CDT by Joseph Flores
--- NOTE | 2024-06-16 13:08 | P.PN ---
Date of Service: 06/16/24 Subjective: No acute events overnight Blood pressure soft, added IV fluids ROS: 10 point ROS as noted above, otherwise negative Physical exam GEN: Alert, oriented, NAD HEENT: Normal conjunctiva, sclera anicteric CV: Regular rate and rhythm, no edema Pulm: Nonlabored respirations on room air ABD: Soft, nontender, nondistended MSK: No joint tenderness Integumentary: No rashes, wound to right lateral foot with surrounding cellulitis Neuro: Normal speech, normal affect Vitals reviewed Assessment: Severe sepsis secondary to right lower extremity cellulitis/osteomyelitis Chronic systolic congestive heart failure Atrial fibrillation on chronic anticoagulation CKD 3 History of CAD with history of CABG Hypertension Hyperlipidemia Diabetes mellitus type 2 BPH Plan: Severe sepsis secondary to right lower extremity cellulitis/osteomyelitis Blood cultures ordered and pending MRI positive for osteomyelitis Broad-spectrum antibiotics ordered Surgery consulted Chronic systolic congestive heart failure Monitor volume status closely No active exacerbation at this time Continue home torsemide Atrial fibrillation on chronic anticoagulation On Xarelto outpatient and sotalol Sotalol continued, QTc within normal limits Switched from Xarelto to therapeutic Lovenox for tonight until surgery evaluation CKD 3 Monitor chemistry daily History of CAD with history of CABG Hypertension Hyperlipidemia BPH Continue home medications when verified Diabetes mellitus type 2 ACHS Accu-Chek, sliding scale insulin DVT PPX: Therapeutic Lovenox Code status: Full Discharge Plan: Home Plan to discharge in: Greater than 2 days Time Spent Managing Pts Care (In Minutes): 35
[2024-06-16] MEDS: VANCOMYCIN 1.25 GM in NA CHLORIDE 0.9% 250 ML IVPB SCH (14:19)
[2024-06-16] MEDS: RIVAROXABAN 20 MG TABLET PO SCH (20:24)
[2024-06-17 06:25] LABS: Absolute Basophils 0.1 K/uL (0-0.5); Absolute Lymphocytes (CBC) 0.9 K/uL (0.7-4.9); Absolute Monocytes 1.6 K/uL (0.1-1.3); Absolute Neutrophil 6.1 K/uL (1.8-8.0); Basophils % 0.6 % (0-1.3); Eosinophils % 0.6 % (0-4.4); Hemoglobin 10.5 g/dL (13.6-17.9); Lymphocytes % 10.7 % (15.3-44.8); MCH 24.9 pg (27.0-35.0); MCHC 32.8 g/dL (32.0-36.0); MCV 75.9 fL (80-100); MPV 7.7 fL (7.6-11.3); Monocytes % 18.7 % (3.3-12.3); Neutrophils % 69.4 % (41.7-73.7); Nucleated Red Blood Cells % 0.1 % (0-0); Platelets 245 thou/uL (152-406); RBC Red Blood Cell Count 4.22 M/uL (4.33-5.43); Red Cell Distribution Width 16.1 % (12.1-15.2)
[2024-06-17 06:44] LABS: AST/SGOT 20 U/L (15-37); Albumin 2.2 g/dL (3.4-5.0); Albumin/Globulin Ratio 0.6 (1.1-1.8); Alkaline Phosphatase 73 U/L (45-117); Anion Gap 10.1 mEq/L (5.0-15.0); BUN Blood Urea Nitrogen 42 mg/dL (7-18); Bicarbonate 24 mEq/L (21-32); Bilirubin Total 0.5 mg/dL (0.2-1.0); Globulin 3.9 g/dL (2.3-3.5); Glomerular Filtration Rate 47 ml/min (=/>90); Glucose Level 240 mg/dL (74-106); Potassium 4.1 mEq/L (3.5-5.1); Protein, Total 6.1 g/dL (6.4-8.2); Sodium Level 133 mEq/L (136-145)
[2024-06-17 06:50] LABS: ALT/SGPT < 14 U/L (16-61)
[2024-06-17 11:20] LABS: Differential Total Cells Count 100; Lymphocytes 11 % (15-42); Monocytes 15 % (0-10); Segmented Neutrophils 73 % (40-80)
[2024-06-17 11:21] LABS: Atypical Lymphocytes 1 %; Blood Morphology Comment NOT SEEN (NOT SEEN); Platelet Estimate ADEQ
--- NOTE | 2024-06-17 14:37 | P.PN ---
Date of Service: 06/17/24 Subjective: No acute events overnight ROS: 10 point ROS as noted above, otherwise negative Physical exam GEN: Alert, oriented, NAD HEENT: Normal conjunctiva, sclera anicteric CV: Regular rate and rhythm, no edema Pulm: Nonlabored respirations on room air ABD: Soft, nontender, nondistended MSK: No joint tenderness Integumentary: No rashes, wound to right lateral foot with surrounding cellulitis Neuro: Normal speech, normal affect Vitals reviewed Assessment: Severe sepsis secondary to right lower extremity cellulitis/osteomyelitis Chronic systolic congestive heart failure Atrial fibrillation on chronic anticoagulation CKD 3 History of CAD with history of CABG Hypertension Hyperlipidemia Diabetes mellitus type 2 BPH Plan: Severe sepsis secondary to right lower extremity cellulitis/osteomyelitis/bacteremia Blood cultures ordered preliminarily + with gram + bacteria MRI positive for osteomyelitis Broad-spectrum antibiotics ordered Surgery and ID consulted Chronic systolic congestive heart failure Monitor volume status closely No active exacerbation at this time Continue home torsemide Atrial fibrillation on chronic anticoagulation On Xarelto outpatient and sotalol Sotalol continued, QTc within normal limits Resume xarelto-no planned surgical intervention from surgery for now CKD 3 Monitor chemistry daily History of CAD with history of CABG Hypertension Hyperlipidemia BPH Continue home medications when verified Diabetes mellitus type 2 ACHS Accu-Chek, sliding scale insulin DVT PPX: xarelto Code status: Full Discharge Plan: Home Plan to discharge in: Greater than 2 days Time Spent Managing Pts Care (In Minutes): 35
[2024-06-17] MEDS ORDERED: D10W 125 ML IV PRN (14:40)
[2024-06-17] MEDS ORDERED: GLUCAGON 1 MG/VIAL IM PRN (14:40)
[2024-06-17] MEDS: INSULIN REGULAR (HUMAN) 100 UNIT/ML SQ SCH (16:30)
--- NOTE | 2024-06-17 18:01 | CON ---
History Of Present Illness: The patient is a 79-year-old male with significant past medical history of chronic systolic congestive heart failure, coronary artery disease with CABG, diabetes mellitus type 2, previous left BKA, chronic right foot wound, benign prostatic hypertrophy and hypertension. Coming into the hospital with right foot wound and discomfort. The patient denies any fevers, nausea, vomiting, chest pain, abdominal pain, constipation, or diarrhea. Past Medical History: As per HPI. Social History: Nonsmoker, nondrinker. Family History: Heart disease, COPD. Medications: Cefepime and vancomycin. See MARs for other medications. Allergies: TYLENOL, CODEINE, HYDROCODONE. Review of Systems: A 10-point review was performed. Physical Examination: General: This is a 79-year-old male, lying in bed, not in any acute cardiopulmonary distress. Vital Signs: Temperature 98.5, pulse 79, respirations 16, blood pressure 100/61. HEENT: Unremarkable. Neck: Supple. Lungs: Basal crackles. Heart: S1, S2. Regular. Abdomen: Soft, nontender. Bowel sounds present. Extremities: Right foot with erythematous changes all the way up to ankle and wrapping the whole foot with a large wound noted to the aspect of fifth metatarsal region, although extending to the toe 90% slough covering the wound site. Laboratory Data: Shows WBC 8.8, down from 16,000; hemoglobin 10.5; platelets 245. Chemistry shows BUN of 42, creatinine 1.5, blood sugars of 339. Urinalysis shows rbc of more than 50, wbc 5 to 10. Blood cultures are growing gram-positive cocci in clusters. Assessment And Plan: Gram-positive cocci bacteremia in a patient with longstanding diabetes mellitus and right foot wound most likely secondary to diabetes mellitus, coming in with the right foot cellulitis and diabetic foot ulcer infection. Foot MRI showing osteomyelitis of the fifth metatarsal, abnormal signal in calcaneus. Recommend to continue antibiotic treatment for 6 weeks. Consider long-term acute care. Wound care per surgical team. We will follow the patient closely. Thank you Dr. Locke and Dr. Kendrick for consult. NF/MODL Voice ID: [id number] Report ID: [id number] [facility]
--- NOTE | 2024-06-17 20:01 | PN ---
Date of Progress Note: 06/17/2024 Diagnosis: Right foot nonhealing wounds, osteomyelitis. Subjective: The patient is doing better. Objective: Chest: Clear. Abdomen: Soft and depressible. Extremities: Intact wound site. Less erythema. Less swelling. Plan: Continue recommendations by Infectious Disease. We going to continue the same dressing change s. Hold the wound VAC. Rehab for ambulation. JUAN CARLOS/FRANCY Voice ID: [id number] Report ID: [id number]
[2024-06-17] MEDS: INSULIN GLARGINE 100 UNIT/ML SQ SCH (21:45)
[2024-06-18 05:52] LABS: Absolute Eosinophils 0.2 K/uL (0-0.5); Absolute Lymphocytes (CBC) 0.8 K/uL (0.7-4.9); Absolute Monocytes 1.4 K/uL (0.1-1.3); Absolute Neutrophil 7.5 K/uL (1.8-8.0); Basophils % 0.5 % (0-1.3); Eosinophils % 1.6 % (0-4.4); Hematocrit 30.9 % (39.6-49.0); Hemoglobin 10.3 g/dL (13.6-17.9); Lymphocytes % 7.7 % (15.3-44.8); MCH 25.5 pg (27.0-35.0); MCHC 33.4 g/dL (32.0-36.0); MCV 76.4 fL (80-100); Monocytes % 14.6 % (3.3-12.3); Neutrophils % 75.6 % (41.7-73.7); Nucleated Red Blood Cells % 0.1 % (0-0); Platelets 261 thou/uL (152-406); RBC Red Blood Cell Count 4.04 M/uL (4.33-5.43); Red Cell Distribution Width 15.8 % (12.1-15.2)
[2024-06-18 06:08] LABS: Albumin 2.3 g/dL (3.4-5.0); Albumin/Globulin Ratio 0.5 (1.1-1.8); Anion Gap 10.8 mEq/L (5.0-15.0); Bilirubin Total 0.4 mg/dL (0.2-1.0); Globulin 4.2 g/dL (2.3-3.5); Potassium 3.8 mEq/L (3.5-5.1); Protein, Total 6.5 g/dL (6.4-8.2)
[2024-06-18] MEDS: POTASSIUM CL SA 10 MEQ TAB PO ONE (09:12)
[2024-06-18] MEDS ORDERED: BENZONATATE 100 MG CAP PO PRN (10:39)
--- NOTE | 2024-06-18 11:33 | P.PN ---
Subjective Date of Service: 06/18/24 Chief Complaint: Right foot cellulitis/osteomyelitis Subjective: Tolerating diet, Improving Physical Examination - Vital Signs Temperature: 98.1 F Blood Pressure: 103/58 Pulse: 72 Respirations: 12 Pulse Ox (%): 96 - Physical Exam General: In no apparent distress, Oriented x3 HEENT: Normocephalic, PERRLA Gastrointestinal: Soft and benign Integumentary: No cyanosis, Erythema (improving), Warmth, Diabetic ulcer, Arterial ulcer Neurological: Normal speech - Studies Microbiology Data (last 24 hrs): 06/15/24 12:05 Blood - Blood Aerobic Blood Culture - Final Meth Resistant Staph Aureus 06/15/24 12:05 Blood - Blood Blood Culture Gram Stain - Final 06/15/24 12:05 Blood - Blood Anaerobic Blood Culture - Final Meth Resistant Staph Aureus 06/15/24 12:05 Blood - Blood Gram Stain - Final 06/15/24 12:15 Blood - Blood Blood Culture Gram Stain - Final Assessment And Plan - Plan cont abd per ID hold wound vac
--- NOTE | 2024-06-18 12:12 | P.PN ---
Date of Service: 06/18/24 Subjective: No acute events overnight Feeling better today ROS: 10 point ROS as noted above, otherwise negative Physical exam GEN: Alert, oriented, NAD HEENT: Normal conjunctiva, sclera anicteric CV: Regular rate and rhythm, no edema Pulm: Nonlabored respirations on room air ABD: Soft, nontender, nondistended MSK: No joint tenderness Integumentary: No rashes, wound to right lateral foot with surrounding cellulitis Neuro: Normal speech, normal affect Vitals reviewed Assessment: Severe sepsis secondary to right lower extremity cellulitis/osteomyelitis Chronic systolic congestive heart failure Atrial fibrillation on chronic anticoagulation CKD 3 History of CAD with history of CABG Hypertension Hyperlipidemia Diabetes mellitus type 2 BPH Plan: Severe sepsis secondary to right lower extremity cellulitis/osteomyelitis/bacteremia MRSA bacteremia noted-sensitive to vancomycin MRI positive for osteomyelitis Broad-spectrum antibiotics ordered Surgery and ID consulted-following Chronic systolic congestive heart failure Monitor volume status closely No active exacerbation at this time Continue home torsemide Atrial fibrillation on chronic anticoagulation On Xarelto outpatient and sotalol Sotalol continued, QTc within normal limits Resume xarelto-no planned surgical intervention from surgery for now CKD 3 Monitor chemistry daily History of CAD with history of CABG Hypertension Hyperlipidemia BPH Continue home medications when verified Diabetes mellitus type 2 ACHS Accu-Chek, sliding scale insulin Added 10u semglee bedtime, may need further titration DVT PPX: xarelto Code status: Full Discharge Plan: Home Plan to discharge in: Greater than 2 days Time Spent Managing Pts Care (In Minutes): 35
[2024-06-18 13:05] VITALS: BMI 24.3
[2024-06-18] MEDS: INSULIN GLARGINE 100 UNIT/ML SQ SCH (21:25)
[2024-06-19 05:41] LABS: Absolute Eosinophils 0.3 K/uL (0-0.5); Absolute Lymphocytes (CBC) 0.9 K/uL (0.7-4.9); Absolute Monocytes 1.3 K/uL (0.1-1.3); Absolute Neutrophil 6.8 K/uL (1.8-8.0); Basophils % 0.4 % (0-1.3); Hematocrit 31.2 % (39.6-49.0); Hemoglobin 10.2 g/dL (13.6-17.9); Lymphocytes % 9.2 % (15.3-44.8); MCH 24.9 pg (27.0-35.0); MCHC 32.7 g/dL (32.0-36.0); MCV 75.9 fL (80-100); MPV 7.1 fL (7.6-11.3); Monocytes % 14.2 % (3.3-12.3); Neutrophils % 73.2 % (41.7-73.7); Platelets 244 thou/uL (152-406); RBC Red Blood Cell Count 4.11 M/uL (4.33-5.43); Red Cell Distribution Width 16.2 % (12.1-15.2)
[2024-06-19 06:08] LABS: Albumin 2.2 g/dL (3.4-5.0); Albumin/Globulin Ratio 0.5 (1.1-1.8); Bilirubin Total 0.4 mg/dL (0.2-1.0); Globulin 4.2 g/dL (2.3-3.5); Protein, Total 6.4 g/dL (6.4-8.2)
--- NOTE | 2024-06-19 13:58 | P.PN ---
Date of Service: 06/19/24 Subjective: No acute events overnight Feeling better today ROS: 10 point ROS as noted above, otherwise negative Physical exam GEN: Alert, oriented, NAD HEENT: Normal conjunctiva, sclera anicteric CV: Regular rate and rhythm, no edema Pulm: Nonlabored respirations on room air ABD: Soft, nontender, nondistended MSK: No joint tenderness Integumentary: No rashes, wound to right lateral foot with surrounding cellulitis Neuro: Normal speech, normal affect Vitals reviewed Assessment: Severe sepsis secondary to right lower extremity cellulitis/osteomyelitis Chronic systolic congestive heart failure Atrial fibrillation on chronic anticoagulation CKD 3 History of CAD with history of CABG Hypertension Hyperlipidemia Diabetes mellitus type 2 BPH Plan: Severe sepsis secondary to right lower extremity cellulitis/osteomyelitis/bacteremia MRSA bacteremia noted-sensitive to vancomycin MRI positive for osteomyelitis Broad-spectrum antibiotics ordered Surgery and ID consulted-following Repeat blood cultures today 06/19 If no growth work on getting PICC May need SNF at [place] for IV abx Chronic systolic congestive heart failure Monitor volume status closely No active exacerbation at this time Continue home torsemide Atrial fibrillation on chronic anticoagulation On Xarelto outpatient and sotalol Sotalol continued, QTc within normal limits Resume xarelto-no planned surgical intervention from surgery for now CKD 3 Monitor chemistry daily History of CAD with history of CABG Hypertension Hyperlipidemia BPH Continue home medications when verified Diabetes mellitus type 2 ACHS Accu-Chek, sliding scale insulin Added 10u semglee bedtime, may need further titration-increased to 15u 06/19 DVT PPX: xarelto Code status: Full Discharge Plan: Home Plan to discharge in: Greater than 2 days Time Spent Managing Pts Care (In Minutes): 35
[2024-06-20] MEDS: DAPTOmycin 500 MG in NA CHLORIDE 0.9% 100 ML IVPB SCH (11:28)
--- NOTE | 2024-06-20 13:24 | P.PN ---
Date of Service: 06/20/24 Subjective: No acute events overnight Doing well ROS: 10 point ROS as noted above, otherwise negative Physical exam GEN: Alert, oriented, NAD HEENT: Normal conjunctiva, sclera anicteric CV: Regular rate and rhythm, no edema Pulm: Nonlabored respirations on room air ABD: Soft, nontender, nondistended MSK: No joint tenderness Integumentary: No rashes, wound to right lateral foot with surrounding cellulitis Neuro: Normal speech, normal affect Vitals reviewed Assessment: Severe sepsis secondary to right lower extremity cellulitis/osteomyelitis Chronic systolic congestive heart failure Atrial fibrillation on chronic anticoagulation CKD 3 History of CAD with history of CABG Hypertension Hyperlipidemia Diabetes mellitus type 2 BPH Plan: Severe sepsis secondary to right lower extremity cellulitis/osteomyelitis/bacteremia MRSA bacteremia noted-sensitive to vancomycin MRI positive for osteomyelitis Surgery and ID consulted-following Repeat blood cultures 06/19 No growth in 24 hours PICC ordered Plan for SNF at [place] for IV abx Chronic systolic congestive heart failure Monitor volume status closely No active exacerbation at this time Continue home torsemide Atrial fibrillation on chronic anticoagulation On Xarelto outpatient and sotalol Sotalol continued, QTc within normal limits Resume xarelto-no planned surgical intervention from surgery for now CKD 3 Monitor chemistry daily History of CAD with history of CABG Hypertension Hyperlipidemia BPH Continue home medications when verified Diabetes mellitus type 2 ACHS Accu-Chek, sliding scale insulin Added 10u semglee bedtime, may need further titration-increased to 15u 06/19 DVT PPX: xarelto Code status: Full Discharge Plan: Home Plan to discharge in: Greater than 2 days Time Spent Managing Pts Care (In Minutes): 35
--- NOTE | 2024-06-20 15:25 | RAD REPORT ---
EXAM: Chest Single View HISTORY: 79 years Male PICC LINE PLACEMENT COMPARISON: 06/15/2024 FINDINGS: LUNGS/PLEURA: Increased interstitial markings present bilaterally. Peribronchial cuffing. CARDIAC/MEDIASTINUM: Moderate cardiomegaly. UPPER ABDOMEN: No significant abnormality. BONES: Sternotomy. No acute abnormality. LINES/TUBES/OTHER: Right subclavian approach PICC with tip overlying the superior cavoatrial junction . IMPRESSION: PICC tip in satisfactory position. Increased interstitial markings bilaterally could reflect edema.
--- NOTE | 2024-06-20 16:52 | PN ---
Subjective: The patient is sitting in bed, not in any acute distress. Objective: Vital signs: Reviewed. Lungs: Basal crackles. Heart: S1, S2 regular. Abdomen: Soft, nontender. Bowel sounds present. Extremities: Right foot wound noted. Data: Blood cultures are growing MRSA with ADY with vancomycin of 2. Assessment And Plan: MRSA bacteremia secondary to right foot osteomyelitis and diabetic foot ulcer. Continue antibiotic. We will recommend to switch to daptomycin 6 mg/kg and check CK level and BNP l evels on a weekly basis. Discontinue cefepime and vancomycin. Continue supportive care. We will fo llow the patient closely. Total course of treatment 6 weeks or 42 days to be given intravenously. W ound care to be followed by surgical team. We will follow the patient as needed. NF/MODL Voice ID: [id number] Report ID: [id number]
[2024-06-20] MEDS: Mupirocin NASAL 2 APPL/1 GM TUBE NAS SCH (20:59)
[2024-06-21 04:52] LABS: Hematocrit 27.9 % (39.6-49.0); Hemoglobin 9.3 g/dL (13.6-17.9); MCH 24.9 pg (27.0-35.0); MCHC 33.3 g/dL (32.0-36.0); MCV 74.7 fL (80-100); Platelets 307 thou/uL (152-406); RBC Red Blood Cell Count 3.73 M/uL (4.33-5.43); Red Cell Distribution Width 15.7 % (12.1-15.2)
[2024-06-21 04:58] LABS: Anion Gap 7.6 mEq/L (5.0-15.0); Potassium 3.6 mEq/L (3.5-5.1)
[2024-06-21] MEDS: POTASSIUM CL SA 10 MEQ TAB PO ONE (08:08)
--- NOTE | 2024-06-21 15:23 | PN ---
Subjective: Patient lying in bed. No new acute event. Chart reviewed. Vital signs reviewed. Jayce es any other problems. Tolerating antibiotic well. Objective: Vital Signs: Temperature 98, pulse 69, respirations 15, blood pressure 106/53. Lungs: Basal crackles. Heart: S1, S2. Regular. Abdomen: Soft, nontender. Bowel sounds present. Extremities: No edema. Wound noted. Laboratory Data: Shows WBC 10.1, hemoglobin 9.3, platelets 307. BUN of 45, creatinine 1.25. Current Medication: Include daptomycin. Assessment And Plan: 1. Right foot osteomyelitis, right foot diabetic foot ulcer. 2. Diabetic neuropathy. 3. Anemia of chronic disease. 4. Kidney disease, stage 3. 5. Continue supportive care and antibiotic. Monitor CK levels on a weekly basis and BMP. We will fo llow the patient as needed. Total course of treatment 42 days. NF/MODL Voice ID: [id number] Report ID: [id number]
--- NOTE | 2024-06-21 18:15 | P.PN ---
Date of Service: 06/21/24 Subjective: Feeling well this morning no new complaints Awaiting SNF placement ROS: 10 point ROS as noted above, otherwise negative Physical exam GEN: Alert and oriented x3, NAD CV: RRR, S1 S2 present Pulm: Nonlabored respirations on room air ABD: Soft and nontender on palpation, nondistended MSK: No joint tenderness Integumentary: No rashes, wound to right lateral foot with surrounding cellulitis Neuro: Normal speech, normal affect Vitals reviewed Assessment: Severe sepsis secondary to right lower extremity cellulitis/osteomyelitis Chronic systolic congestive heart failure Atrial fibrillation on chronic anticoagulation CKD 3 History of CAD with history of CABG Hypertension Hyperlipidemia Diabetes mellitus type 2 BPH Plan: Severe sepsis secondary to right lower extremity cellulitis/osteomyelitis/bacteremia MRSA bacteremia noted-sensitive to vancomycin MRI positive for osteomyelitis Surgery and ID-following Repeat blood cultures 06/19 No growth in [address] Awaiting SNF with IV abx course Antibiotics for SNF-osteomyelitis/bacteremia Daptomycin 500 mg IV daily through 07/27/2024-this makes for a total of 6 weeks of IV antibiotics from admission Weekly CPK, BMP, CBC while on antibiotic at SNF Flush PICC line with 10 mL of NS before and after antibiotic administration Dressing changes per policy PICC line to be removed after completion of IV antibiotics Chronic systolic congestive heart failure Monitor volume status closely No active exacerbation at this time Continue home torsemide Atrial fibrillation on chronic anticoagulation On Xarelto outpatient and sotalol Sotalol continued, QTc within normal limits Resume xarelto-no planned surgical intervention from surgery for now CKD 3 Monitor chemistry daily History of CAD with history of CABG Hypertension Hyperlipidemia BPH Continue home medications when verified Diabetes mellitus type 2 ACHS Accu-Chek, sliding scale insulin Added 10u semglee bedtime, may need further titration-increased to 15u 06/19 DVT PPX: xarelto Code status: Full Discharge Plan: Home Plan to discharge in: Greater than 2 days
[2024-06-22 04:44] LABS: Hematocrit 29.5 % (39.6-49.0); Hemoglobin 9.8 g/dL (13.6-17.9); MCH 25.1 pg (27.0-35.0); MCHC 33.1 g/dL (32.0-36.0); MCV 75.9 fL (80-100); MPV 6.8 fL (7.6-11.3); Platelets 362 thou/uL (152-406); RBC Red Blood Cell Count 3.89 M/uL (4.33-5.43); Red Cell Distribution Width 15.9 % (12.1-15.2)
[2024-06-22 04:57] LABS: Anion Gap 10.3 mEq/L (5.0-15.0); Potassium 4.3 mEq/L (3.5-5.1)
--- NOTE | 2024-06-22 11:14 | P.PN ---
Date of Service: 06/22/24 Subjective: Patient lying in bed. No new acute event. Chart reviewed. Vital signs reviewed. Denies any other problems. Tolerating antibiotic well. Objective: Temp Pulse Resp BP Pulse Ox 98.3 F 61 14 108/51 L 98 06/22/24 08:00 06/22/24 08:00 06/22/24 08:00 06/22/24 08:00 06/22/24 08:00 Neuro: aox3 Lungs: Basal crackles. Heart: S1, S2. Regular. Abdomen: Soft, nontender. Bowel sounds present. Extremities: No edema. Wound dressing to Right foot Laboratory Data: Shows WBC 10.8, hemoglobin 9.8, platelets 362. BUN of 48, creatinine 1.25. 06/15/24 blood culture MRSA 06/19/24 Blood culture No growth in 24 hrs Current Medication: daptomycin started 06/20/24 Assessment And Plan: 1. Right foot osteomyelitis, right foot diabetic foot ulcer. Continue supportive care and antibiotic Daptomycin. Monitor CK levels on a weekly basis and BMP. We will follow the patient as needed. Total course of treatment 42 days.. Monitor WBC and fever trend 2. Diabetic neuropathy. 3. Anemia of chronic disease. 4. Kidney disease, stage 3. Case round and in agreement with Dr Renteria
--- NOTE | 2024-06-22 14:56 | P.PN ---
Date of Service: 06/22/24 Subjective: Tolerating IV antibiotics and ready for discharge no new complaints Awaiting SNF placement ROS: 10 point ROS as noted above, otherwise negative Physical exam GEN: AAO x3, conversing well CV: regular rate and rhythm, S1 S2 present Pulm: Nonlabored respirations on room air ABD: Soft and nontender on palpation, nondistended MSK: No joint tenderness Integumentary: wound to right lateral foot with surrounding cellulitis Neuro: Normal speech, normal affect Vitals reviewed Assessment: Severe sepsis secondary to right lower extremity cellulitis/osteomyelitis Chronic systolic congestive heart failure Atrial fibrillation on chronic anticoagulation CKD 3 History of CAD with history of CABG Hypertension Hyperlipidemia Diabetes mellitus type 2 BPH Plan: Severe sepsis secondary to right lower extremity cellulitis/osteomyelitis/bacteremia MRSA bacteremia noted-sensitive to vancomycin MRI positive for osteomyelitis Surgery and ID-following Repeat blood cultures 06/19 No growth in [address] Awaiting SNF with IV abx course Antibiotics for SNF-osteomyelitis/bacteremia continue Daptomycin 500 mg IV daily through 07/27/2024-this makes for a total of 6 weeks of IV antibiotics from admission Weekly CPK, BMP, CBC while on antibiotic at SNF Flush PICC line with 10 mL of NS before and after antibiotic administration Dressing changes per policy PICC line to be removed after completion of IV antibiotics Chronic systolic congestive heart failure Monitor volume status closely No active exacerbation at this time Continue home torsemide Atrial fibrillation on chronic anticoagulation On Xarelto outpatient and sotalol Sotalol continued, QTc within normal limits Resume xarelto-no planned surgical intervention from surgery for now CKD 3 Monitor chemistry daily History of CAD with history of CABG Hypertension Hyperlipidemia BPH Continue home medications when verified Diabetes mellitus type 2 ACHS Accu-Chek, sliding scale insulin Added 10u semglee bedtime, may need further titration-increased to 15u 06/19 Hospital interval course 06/22/24 -Tolerating treatment, will continue antibiotic course at discharge -Hemodynamically stable -Working with Physical therapy -awaiting placement DVT PPX: xarelto Code status: Full Discharge Plan: Home Plan to discharge in: Greater than 2 days
[2024-06-23 05:27] LABS: Hematocrit 29.4 % (39.6-49.0); Hemoglobin 9.6 g/dL (13.6-17.9); MCH 24.9 pg (27.0-35.0); MCHC 32.6 g/dL (32.0-36.0); MCV 76.4 fL (80-100); MPV 6.8 fL (7.6-11.3); Platelets 368 thou/uL (152-406); RBC Red Blood Cell Count 3.85 M/uL (4.33-5.43); Red Cell Distribution Width 16.2 % (12.1-15.2)
[2024-06-23 05:46] LABS: Anion Gap 9.4 mEq/L (5.0-15.0); Potassium 4.4 mEq/L (3.5-5.1)
--- NOTE | 2024-06-23 12:54 | P.PN ---
Date of Service: 06/23/24 Subjective: Awake, eating well, conversing no new complaints Awaiting SNF placement ROS: 10 point ROS as noted above, otherwise negative Physical exam GEN: oriented x3, conversing well CV: RRR, S1 S2 present Pulm: Clear BBS, on room air ABD: Soft, ND/NT MSK: No joint tenderness Integumentary: wound to right lateral foot with surrounding cellulitis Neuro: Normal speech, normal affect Vitals reviewed Assessment: Severe sepsis secondary to right lower extremity cellulitis/osteomyelitis Chronic systolic congestive heart failure Atrial fibrillation on chronic anticoagulation CKD 3 History of CAD with history of CABG Hypertension Hyperlipidemia Diabetes mellitus type 2 BPH Plan: Severe sepsis secondary to right lower extremity cellulitis/osteomyelitis/bacteremia MRSA bacteremia noted-sensitive to vancomycin MRI positive for osteomyelitis Surgery and ID-following Repeat blood cultures 06/19 No growth in [address] Awaiting SNF with IV abx course Antibiotics for SNF-osteomyelitis/bacteremia continue Daptomycin 500 mg IV daily through 07/27/2024-this makes for a total of 6 weeks of IV antibiotics from admission Weekly CPK, BMP, CBC while on antibiotic at SNF Flush PICC line with 10 mL of NS before and after antibiotic administration Dressing changes per policy PICC line to be removed after completion of IV antibiotics Chronic systolic congestive heart failure Monitor volume status closely No active exacerbation at this time Continue home torsemide Atrial fibrillation on chronic anticoagulation On Xarelto outpatient and sotalol Sotalol continued, QTc within normal limits Resume xarelto-no planned surgical intervention from surgery for now CKD 3 Monitor chemistry daily History of CAD with history of CABG Hypertension Hyperlipidemia BPH Continue home medications when verified Diabetes mellitus type 2 ACHS Accu-Chek, sliding scale insulin Added 10u semglee bedtime, may need further titration-increased to 15u 06/19 Hospital interval course 06/22/24 -Tolerating treatment, will continue antibiotic course at discharge -Hemodynamically stable -Working with Physical therapy -awaiting placement 06/23/24 -Ready for discharge -BUN increased, will continue to monitor -remains on RA -Will continue antibiotic therapy -Awaiting placement DVT PPX: xarelto Code status: Full Discharge Plan: Home Plan to discharge in: Greater than 2 days
--- NOTE | 2024-06-24 15:01 | P.PN ---
Date of Service: 06/24/24 Subjective: Awake, positioning in bed, able to use bedside commode Reports feeling well, no new complaints Awaiting SNF placement ROS: 10 point ROS as noted above, otherwise negative Physical exam GEN: Alert, oriented x3, conversing well CV: RRR, S1 S2 present Pulm: Symmetrical chest wall movement,, on room air ABD: Soft, ND/NT MSK: No joint tenderness Integumentary: wound to right lateral foot with surrounding cellulitis Neuro: Normal speech, normal affect Vitals reviewed Assessment: Severe sepsis secondary to right lower extremity cellulitis/osteomyelitis Chronic systolic congestive heart failure Atrial fibrillation on chronic anticoagulation CKD 3 History of CAD with history of CABG Hypertension Hyperlipidemia Diabetes mellitus type 2 BPH Plan: Severe sepsis secondary to right lower extremity cellulitis/osteomyelitis/bacteremia MRSA bacteremia noted-sensitive to vancomycin MRI positive for osteomyelitis Surgery and ID-following Repeat blood cultures 06/19 No growth in [address] Awaiting SNF with IV abx course Antibiotics for SNF-osteomyelitis/bacteremia continue Daptomycin 500 mg IV daily through 07/27/2024-this makes for a total of 6 weeks of IV antibiotics from admission Weekly CPK, BMP, CBC while on antibiotic at SNF Flush PICC line with 10 mL of NS before and after antibiotic administration Dressing changes per policy PICC line to be removed after completion of IV antibiotics Chronic systolic congestive heart failure Monitor volume status closely No active exacerbation at this time Continue home torsemide Atrial fibrillation on chronic anticoagulation On Xarelto outpatient and sotalol Sotalol continued, QTc within normal limits Resume xarelto-no planned surgical intervention from surgery for now CKD 3 Monitor chemistry daily History of CAD with history of CABG Hypertension Hyperlipidemia BPH Continue home medications when verified Diabetes mellitus type 2 ACHS Accu-Chek, sliding scale insulin Added 10u semglee bedtime, may need further titration-increased to 15u 06/19 Hospital interval course 06/22/24 -Tolerating treatment, will continue antibiotic course at discharge -Hemodynamically stable -Working with Physical therapy -awaiting placement 06/23/24 -Ready for discharge -BUN increased, will continue to monitor -remains on RA -Will continue antibiotic therapy -Awaiting placement 06/24/24 -Independent with most ADLs -Continue IV antibiotic course, CK 47 -hemodynamically stable -Awaiting placement DVT PPX: xarelto Code status: Full Discharge Plan: SNF Plan to discharge in: Greater than 2 days <Hyun Damian - Last Filed: 06/24/24 14:55> Patient seen and examined. Plan of care discussed with Carlos Eduardo Rickie. Patient has no new complaint. He has been afebrile He reports good appetite and eating well He states his pain is well-controlled. He reports regular bowel movement. Plan: Continue IV daptomycin. Monitor CK levels at least weekly <dewayne espinosa - Last Filed: 06/24/24 16:57>
--- NOTE | 2024-06-24 16:05 | P.PN ---
Date of Service: 06/24/24 Subjective: Patient lying in bed. No new acute event. Chart reviewed. Vital signs reviewed. Denies any other problems. Tolerating antibiotic well. Objective: Temp Pulse Resp BP Pulse Ox 97.9 F 59 16 114/59 L 94 06/24/24 12:00 06/24/24 12:00 06/24/24 12:00 06/24/24 12:00 06/24/24 12:00 Neuro: aox3 Lungs: CTA Heart: S1, S2. Regular. Abdomen: Soft, nontender. Bowel sounds present. Extremities: No edema. Wound dressing to Right foot Laboratory Data: Shows WBC 9.3, hemoglobin 9.6, platelets 368. 06/15/24 blood culture MRSA 06/19/24 Blood culture No growth in 24 hrs Current Medication: daptomycin started 06/20/24 Assessment And Plan: 1. Right foot osteomyelitis, right foot diabetic foot ulcer. Continue supportive care and antibiotic Daptomycin. Monitor CK levels on a weekly basis and BMP. We will follow the patient as needed. Total course of treatment 42 days.. Monitor WBC and fever trend 2. Diabetic neuropathy. 3. Anemia of chronic disease. 4. Kidney disease, stage 3. Case round and in agreement with Dr Renteria
[2024-06-25 03:47] LABS: Absolute Basophils 0.1 K/uL (0-0.5); Absolute Eosinophils 0.5 K/uL (0-0.5); Absolute Lymphocytes (CBC) 1.3 K/uL (0.7-4.9); Absolute Monocytes 1.1 K/uL (0.1-1.3); Absolute Neutrophil 6.7 K/uL (1.8-8.0); Basophils % 1.1 % (0-1.3); Hemoglobin 9.5 g/dL (13.6-17.9); Lymphocytes % 13.2 % (15.3-44.8); MCH 24.7 pg (27.0-35.0); MCHC 32.8 g/dL (32.0-36.0); MCV 75.2 fL (80-100); MPV 6.8 fL (7.6-11.3); Monocytes % 11.4 % (3.3-12.3); Neutrophils % 69.3 % (41.7-73.7); Platelets 411 thou/uL (152-406); RBC Red Blood Cell Count 3.86 M/uL (4.33-5.43); Red Cell Distribution Width 16.3 % (12.1-15.2)
[2024-06-25 03:53] LABS: Anion Gap 8.9 mEq/L (5.0-15.0); Phosphorus 4.1 mg/dL (2.5-4.9); Potassium 3.9 mEq/L (3.5-5.1)
[2024-06-25] MEDS ORDERED: SOTALOL HCL 80 MG TAB PO SCH (06:00)
[2024-06-25] MEDS: SOTALOL HCL 80 MG TAB PO SCH (08:45)
[2024-06-25] MEDS: POTASSIUM CL SA 10 MEQ TAB PO ONE (08:45)
--- NOTE | 2024-06-25 13:42 | P.PN ---
Date of Service: 06/25/24 Subjective: No new complaints Awaiting SNF placement ROS: 10 point ROS as noted above, otherwise negative Physical exam GEN: oriented x3, conversing well, NAD CV: RRR, S1 S2 present Pulm: nonlabored breathing, on room air ABD: Soft, ND/NT, active bowel sounds MSK: No joint tenderness Integumentary: wound to right lateral foot with surrounding cellulitis Neuro: Normal speech, normal affect Vitals reviewed Assessment: Severe sepsis secondary to right lower extremity cellulitis/osteomyelitis Chronic systolic congestive heart failure Atrial fibrillation on chronic anticoagulation CKD 3 History of CAD with history of CABG Hypertension Hyperlipidemia Diabetes mellitus type 2 BPH Plan: Severe sepsis secondary to right lower extremity cellulitis/osteomyelitis/bacteremia MRSA bacteremia noted-sensitive to vancomycin MRI positive for osteomyelitis Surgery and ID-following Repeat blood cultures 06/19 No growth in [address] Awaiting SNF with IV abx course Antibiotics for SNF-osteomyelitis/bacteremia continue Daptomycin 500 mg IV daily through 07/27/2024-this makes for a total of 6 weeks of IV antibiotics from admission Weekly CPK, BMP, CBC while on antibiotic at SNF Flush PICC line with 10 mL of NS before and after antibiotic administration Dressing changes per policy PICC line to be removed after completion of IV antibiotics Chronic systolic congestive heart failure Monitor volume status closely No active exacerbation at this time Continue home torsemide Atrial fibrillation on chronic anticoagulation On Xarelto outpatient and sotalol Sotalol continued, QTc within normal limits Resume xarelto-no planned surgical intervention from surgery for now CKD 3 Monitor chemistry daily History of CAD with history of CABG Hypertension Hyperlipidemia BPH Continue home medications when verified Diabetes mellitus type 2 ACHS Accu-Chek, sliding scale insulin Added 10u semglee bedtime, may need further titration-increased to 15u 06/19 Hospital interval course 06/22/24 -Tolerating treatment, will continue antibiotic course at discharge -Hemodynamically stable -Working with Physical therapy -awaiting placement 06/23/24 -Ready for discharge -BUN increased, will continue to monitor -remains on RA -Will continue antibiotic therapy -Awaiting placement 06/24/24 -Independent with most ADLs -Continue IV antibiotic course, CK 47 -hemodynamically stable -Awaiting placement 06/25/24 -Blood glucose elevated today -vital signs stable -on RA -tolerating Daptomycin -continue antibiotic course -awaiting placement DVT PPX: xarelto Code status: Full Discharge Plan: SNF Plan to discharge in: Greater than 2 days
[2024-06-26 05:42] LABS: Absolute Basophils 0.1 K/uL (0-0.5); Absolute Eosinophils 0.5 K/uL (0-0.5); Absolute Lymphocytes (CBC) 1.2 K/uL (0.7-4.9); Absolute Monocytes 1.2 K/uL (0.1-1.3); Absolute Neutrophil 6.8 K/uL (1.8-8.0); Basophils % 0.7 % (0-1.3); Hematocrit 29.2 % (39.6-49.0); Hemoglobin 9.6 g/dL (13.6-17.9); Lymphocytes % 12.7 % (15.3-44.8); MCH 24.9 pg (27.0-35.0); MCV 75.5 fL (80-100); MPV 6.5 fL (7.6-11.3); Monocytes % 12.4 % (3.3-12.3); Neutrophils % 69.2 % (41.7-73.7); Nucleated Red Blood Cells % 0.1 % (0-0); Platelets 421 thou/uL (152-406); RBC Red Blood Cell Count 3.86 M/uL (4.33-5.43); Red Cell Distribution Width 16.1 % (12.1-15.2)
[2024-06-26 05:56] LABS: Anion Gap 8.2 mEq/L (5.0-15.0); Magnesium 2.2 mg/dL (1.6-2.4); Phosphorus 3.1 mg/dL (2.5-4.9); Potassium 4.2 mEq/L (3.5-5.1)
[2024-06-26] MEDS ORDERED: HOME MED 1 EA UNK (Glipizide [Glipizide Er] 10 MG Tab.Er.24) PO SCH (09:00)
[2024-06-26] MEDS: Dapagliflozin Propanediol [Farxiga] 5 MG Tablet *PT OWN MED PO SCH (09:00)
[2024-06-26] MEDS: TORSEMIDE 20 MG TAB PO SCH (09:25)
[2024-06-26] MEDS: COLLAGENASE 30 GM OINTMENT TOP SCH (09:26)
[2024-06-26] MEDS: GLIPIZIDE S.A. 5 MG TAB PO SCH (12:40)
--- NOTE | 2024-06-26 13:55 | P.PN ---
Date of Service: 06/26/24 Subjective: Feeling well, no new complaints Awaiting SNF placement ROS: 10 point ROS as noted above, otherwise negative Physical exam GEN: oriented x3, conversing well, NAD CV: S1 S2 present, regular rate and rhythm Pulm: Symmetrical chest wall movement, on room air ABD: Soft on palpation, active bowel sounds MSK: No joint tenderness Integumentary: wound to right lateral foot with surrounding cellulitis Neuro: Normal speech, normal affect Vitals reviewed Assessment: Severe sepsis secondary to right lower extremity cellulitis/osteomyelitis Chronic systolic congestive heart failure Atrial fibrillation on chronic anticoagulation CKD 3 History of CAD with history of CABG Hypertension Hyperlipidemia Diabetes mellitus type 2 BPH Plan: Severe sepsis secondary to right lower extremity cellulitis/osteomyelitis/bacteremia MRSA bacteremia noted-sensitive to vancomycin MRI positive for osteomyelitis Surgery and ID-following Repeat blood cultures 06/19 No growth in [address] Awaiting SNF with IV abx course Antibiotics for SNF-osteomyelitis/bacteremia continue Daptomycin 500 mg IV daily through 07/27/2024-this makes for a total of 6 weeks of IV antibiotics from admission Weekly CPK, BMP, CBC while on antibiotic at SNF Flush PICC line with 10 mL of NS before and after antibiotic administration Dressing changes per policy PICC line to be removed after completion of IV antibiotics Chronic systolic congestive heart failure Monitor volume status closely No active exacerbation at this time Continue home torsemide Atrial fibrillation on chronic anticoagulation On Xarelto outpatient and sotalol Sotalol continued, QTc within normal limits Resume xarelto-no planned surgical intervention from surgery for now CKD 3 Monitor chemistry daily History of CAD with history of CABG Hypertension Hyperlipidemia BPH Continue home medications when verified Diabetes mellitus type 2 ACHS Accu-Chek, sliding scale insulin Added 10u semglee bedtime, may need further titration-increased to 15u 06/19 Hospital interval course 06/22/24 -Tolerating treatment, will continue antibiotic course at discharge -Hemodynamically stable -Working with Physical therapy -awaiting placement 06/23/24 -Ready for discharge -BUN increased, will continue to monitor -remains on RA -Will continue antibiotic therapy -Awaiting placement 06/24/24 -Independent with most ADLs -Continue IV antibiotic course, CK 47 -hemodynamically stable -Awaiting placement 06/25/24 -Blood glucose elevated today -vital signs stable -on RA -tolerating Daptomycin -continue antibiotic course -awaiting placement 06/26/24 -Continue with treatment -ready for discharge -Awaiting for placement DVT PPX: xarelto Code status: Full Discharge Plan: SNF Plan to discharge in: Greater than 2 days
[2024-06-27 05:04] LABS: Absolute Basophils 0.1 K/uL (0-0.5); Absolute Eosinophils 0.4 K/uL (0-0.5); Absolute Lymphocytes (CBC) 1.2 K/uL (0.7-4.9); Absolute Monocytes 1.1 K/uL (0.1-1.3); Absolute Neutrophil 7.5 K/uL (1.8-8.0); Basophils % 0.8 % (0-1.3); Eosinophils % 4.1 % (0-4.4); Hematocrit 29.4 % (39.6-49.0); Hemoglobin 9.6 g/dL (13.6-17.9); Lymphocytes % 11.5 % (15.3-44.8); MCH 24.5 pg (27.0-35.0); MCHC 32.6 g/dL (32.0-36.0); MCV 75.2 fL (80-100); MPV 6.7 fL (7.6-11.3); Neutrophils % 72.6 % (41.7-73.7); Platelets 438 thou/uL (152-406); RBC Red Blood Cell Count 3.91 M/uL (4.33-5.43); Red Cell Distribution Width 16.2 % (12.1-15.2)
[2024-06-27 05:11] LABS: Anion Gap 7.8 mEq/L (5.0-15.0); Magnesium 2.1 mg/dL (1.6-2.4); Phosphorus 3.3 mg/dL (2.5-4.9); Potassium 3.8 mEq/L (3.5-5.1)
[2024-06-27] MEDS: POTASSIUM CL SA 10 MEQ TAB PO ONE (09:09)
--- NOTE | 2024-06-27 16:11 | P.PN ---
Date of Service: 06/27/24 Subjective: Patient lying in bed. No new acute event. Chart reviewed. Vital signs reviewed. Denies any other problems. Tolerating antibiotic well. Objective: Temp Pulse Resp BP Pulse Ox 97.9 F 73 20 110/60 97 06/27/24 12:00 06/27/24 12:00 06/27/24 12:00 06/27/24 12:00 06/27/24 12:00 Neuro: aox3 Lungs: CTA Heart: S1, S2. Regular. Abdomen: Soft, nontender. Bowel sounds present. Extremities: No edema. Wound dressing to Right foot Laboratory Data: Shows WBC 10.3, hemoglobin 9.6, platelets 338. 06/15/24 blood culture MRSA 06/19/24 Blood culture No growth in 24 hrs Current Medication: daptomycin started 06/20/24 Assessment And Plan: 1. Right foot osteomyelitis, right foot diabetic foot ulcer. Continue supportive care and antibiotic Daptomycin. Monitor CK levels on a weekly basis and BMP. We will follow the patient as needed. Total course of treatment 42 days.. Monitor WBC and fever trend 2. Diabetic neuropathy. 3. Anemia of chronic disease. 4. Kidney disease, stage 3. Case round and in agreement with Dr Renteria
[2024-06-28 05:11] LABS: Anion Gap 7.2 mEq/L (5.0-15.0); Potassium 4.2 mEq/L (3.5-5.1)
--- NOTE | 2024-06-28 13:05 | P.PN ---
Date of Service: 06/28/24 Subjective: Feeling well, no new complaints Awaiting SNF placement ROS: 10 point ROS as noted above, otherwise negative Physical exam GEN: oriented x3, conversing well, NAD CV: S1 S2 present, regular rate and rhythm Pulm: Symmetrical chest wall movement, on room air ABD: Soft on palpation, active bowel sounds MSK: No joint tenderness Integumentary: wound to right lateral foot with surrounding cellulitis Neuro: Normal speech, normal affect Vitals reviewed Assessment: Severe sepsis secondary to right lower extremity cellulitis/osteomyelitis Chronic systolic congestive heart failure Atrial fibrillation on chronic anticoagulation CKD 3 History of CAD with history of CABG Hypertension Hyperlipidemia Diabetes mellitus type 2 BPH Plan: Severe sepsis secondary to right lower extremity cellulitis/osteomyelitis/bacteremia MRSA bacteremia noted-sensitive to vancomycin MRI positive for osteomyelitis Surgery and ID-following Repeat blood cultures 06/19 No growth in [address] Awaiting SNF with IV abx course Antibiotics for SNF-osteomyelitis/bacteremia continue Daptomycin 500 mg IV daily through 07/27/2024-this makes for a total of 6 weeks of IV antibiotics from admission Weekly CPK, BMP, CBC while on antibiotic at SNF Flush PICC line with 10 mL of NS before and after antibiotic administration Dressing changes per policy PICC line to be removed after completion of IV antibiotics Chronic systolic congestive heart failure Monitor volume status closely No active exacerbation at this time Continue home torsemide Atrial fibrillation on chronic anticoagulation On Xarelto outpatient and sotalol Sotalol continued, QTc within normal limits Resume xarelto-no planned surgical intervention from surgery for now CKD 3 Monitor chemistry daily History of CAD with history of CABG Hypertension Hyperlipidemia BPH Continue home medications when verified Diabetes mellitus type 2 ACHS Accu-Chek, sliding scale insulin Added 10u semglee bedtime, may need further titration-increased to 15u 06/19 DVT PPX: xarelto Code status: Full Discharge Plan: SNF Plan to discharge in: Greater than 2 days
--- NOTE | 2024-06-28 13:33 | PN ---
Subjective: Patient lying in bed. No new acute event. Chart reviewed. Objective: Vital Signs: Reviewed. Lungs: Basal crackles. Heart: S1, S2. Regular. Abdomen: Soft, nontender. Bowel sounds present. Extremities: No edema. Wound noted. Laboratory Data: Shows WBC 10.3, hemoglobin 9.6, platelets are 438. Chemistry shows BUN of 61, crea tinine 1.37. Repeat blood cultures from 06/19 are negative. Assessment And Plan: 1. MRSA bacteremia, currently on daptomycin. 2. Diabetic neuropathy. 3. Right foot osteomyelitis. 4. Diabetic foot ulcer. 5. Chronic kidney disease stage 3. 6. Anemia of chronic disease. Monitor signs of infection with WBC and fever trends. Continue antibiotic for a total of 6 weeks. W barry will follow the patient as needed. NF/MODL Voice ID: [id number] Report ID: [id number]
[2024-06-28] MEDS: ROSUVASTATIN 10 MG TAB PO SCH (22:20)
[2024-06-29] MEDS: FAMOTIDINE 20 MG TAB PO SCH (08:51)
[2024-06-29] MEDS: FINASTERIDE 5 MG TAB PO SCH (08:51)
[2024-06-29] MEDS: LOSARTAN POTASSIUM 50 MG TABLET PO SCH (08:52)
[2024-06-29] MEDS: LIOTHYRONINE SOD 25 MCG TAB PO SCH (08:52)
[2024-06-29] MEDS: ZINC SULFATE 220 MG CAP PO SCH (08:53)
--- NOTE | 2024-06-29 16:46 | P.PN ---
Date of Service: 06/29/24 Subjective: Feeling well, no new complaints Awaiting SNF placement Patient doing well without complaint ROS: 10 point ROS as noted above, otherwise negative Physical exam GEN: oriented x3, conversing well, NAD CV: S1 S2 present, regular rate and rhythm Pulm: Symmetrical chest wall movement, on room air ABD: Soft on palpation, active bowel sounds MSK: No joint tenderness Integumentary: wound to right lateral foot with surrounding cellulitis Neuro: Normal speech, normal affect Vitals reviewed Assessment: Severe sepsis secondary to right lower extremity cellulitis/osteomyelitis Chronic systolic congestive heart failure Atrial fibrillation on chronic anticoagulation CKD 3 History of CAD with history of CABG Hypertension Hyperlipidemia Diabetes mellitus type 2 BPH Plan: Severe sepsis secondary to right lower extremity cellulitis/osteomyelitis/bacteremia MRSA bacteremia noted-sensitive to vancomycin MRI positive for osteomyelitis Surgery and ID-following Repeat blood cultures 06/19 No growth in [address] Awaiting SNF with IV abx course Antibiotics for SNF-osteomyelitis/bacteremia continue Daptomycin 500 mg IV daily through 07/27/2024-this makes for a total of 6 weeks of IV antibiotics from admission Weekly CPK, BMP, CBC while on antibiotic at SNF Flush PICC line with 10 mL of NS before and after antibiotic administration Dressing changes per policy PICC line to be removed after completion of IV antibiotics Still awaiting SNF approval Chronic systolic congestive heart failure Monitor volume status closely No active exacerbation at this time Continue home torsemide Atrial fibrillation on chronic anticoagulation On Xarelto outpatient and sotalol Sotalol continued, QTc within normal limits Resume xarelto-no planned surgical intervention from surgery for now CKD 3 Monitor chemistry daily History of CAD with history of CABG Hypertension Hyperlipidemia BPH Continue home medications when verified Diabetes mellitus type 2 ACHS Accu-Chek, sliding scale insulin Added 10u semglee bedtime, may need further titration-increased to 15u 06/19 DVT PPX: xarelto Code status: Full Discharge Plan: SNF Plan to discharge in: Greater than 2 days
--- NOTE | 2024-06-29 17:59 | PN ---
Subjective: The patient lying in bed. No new acute event. Chart reviewed. Denies any problems. D enies any headache, nausea, vomiting, chest pain, abdominal pain, any challenges with antibiotic. Objective: Vital Signs: Temperature 97.8, pulse 60, respiration 18, blood pressure 108/57. Lungs: Clear to auscultation. Heart: S1, S2, regular. Abdomen: Soft, nontender. Bowel sounds present. Extremities: Wound noted. Lab: WBC 10.3, hemoglobin 9.6, platelets 438. Chemistry shows BUN 61, creatinine 1.3, blood sugars 223 at 11 o'clock and 172 in the morning. Assessment And Plan: 1. MRSA bacteremia. 2. Osteomyelitis of right foot status post surgical debridement. Last CK level is 47 on June 24. Continue to monitor CK level on a weekly basis while the patient i s on antibiotic course of 42 days. We will follow the patient closely. NF/MODL Voice ID: [id number] Report ID: [id number]
[2024-06-30 01:29] VITALS: O2SAT 98
[2024-06-30 12:39] VITALS: TEMP 97.6
--- NOTE | 2024-06-30 15:25 | P.PN ---
Date of Service: 06/30/24 Subjective: Feeling well, no new complaints Awaiting SNF placement Patient doing well without complaint Increased long acting insulin to 20u tonight ROS: 10 point ROS as noted above, otherwise negative Physical exam GEN: oriented x3, conversing well, NAD CV: S1 S2 present, regular rate and rhythm Pulm: Symmetrical chest wall movement, on room air ABD: Soft on palpation, active bowel sounds MSK: No joint tenderness Integumentary: wound to right lateral foot with surrounding cellulitis Neuro: Normal speech, normal affect Vitals reviewed Assessment: Severe sepsis secondary to right lower extremity cellulitis/osteomyelitis Chronic systolic congestive heart failure Atrial fibrillation on chronic anticoagulation CKD 3 History of CAD with history of CABG Hypertension Hyperlipidemia Diabetes mellitus type 2 BPH Plan: Severe sepsis secondary to right lower extremity cell ulitis/osteomyelitis/bacteremia MRSA bacteremia noted-sensitive to vancomycin MRI positive for osteomyelitis Surgery and ID-following Repeat blood cultures 06/19 No growth in [address] Awaiting SNF with IV abx course Antibiotics for SNF-osteomyelitis/bacteremia continue Daptomycin 500 mg IV daily through 07/27/2024-this makes for a total of 6 weeks of IV antibiotics from admission Weekly CPK, BMP, CBC while on antibiotic at SNF Flush PICC line with 10 mL of NS before and after antibiotic administration Dressing changes per policy PICC line to be removed after completion of IV antibiotics Still awaiting SNF approval Chronic systolic congestive heart failure Monitor volume status closely No active exacerbation at this time Continue home torsemide Atrial fibrillation on chronic anticoagulation On Xarelto outpatient and sotalol Sotalol continued, QTc within normal limits Resume xarelto-no planned surgical intervention from surgery for now CKD 3 Monitor chemistry daily History of CAD with history of CABG Hypertension Hyperlipidemia BPH Continue home medications when verified Diabetes mellitus type 2 ACHS Accu-Chek, sliding scale insulin Added 10u semglee bedtime, may need further titration-increased to 15u 06/19 increased to 20u 06/30 Cannot get farxiga as it is non formulary patient to attempt to bring in his own farxiga DVT PPX: xarelto Code status: Full Discharge Plan: SNF Plan to discharge in: Greater than 2 days
--- NOTE | 2024-06-30 16:22 | P.DS ---
Admission Date: 06/15/24 Discharge Date: 06/30/24 Disposition: TRANSFER TO SNF - REHAB Discharge Condition: GOOD Reason for Admission: Right foot cellulitis/osteomyelitis Brief History of Present Illness: 79-year-old male with history of chronic systolic congestive heart failure, CAD with previous CABG, diabetes mellitus type 2, previous left BKA, chronic right foot wound, BPH and hypertension presents to the emergency department with chief complaint of right foot wound. He has a chronic right foot wound he went to see his surgeon today and it was noted that he had erythema present overlying the wound, he was referred to the emergency department for further management. Patient was evaluated in the emergency department his labs were significant for a white blood cell count of 16.1, lactate of 2.9 creatinine 1.57 CRP 155 BNP 13,141 x-ray of the right foot was obtained which showed areas of subtle demineralization seen in the fifth metatarsal head, subtle demineralization also seen at the fourth metatarsal head and the base of the proximal phalanx of the fourth toe. Soft tissue wound is present laterally with possible fracture involving the base of the fifth metatarsal. Osteomyelitis is likely present. Started on broad-spectrum antibiotics in ED, will be admitted for further management of right foot wound with possible osteomyelitis. Hospital Course: Assessment: Severe sepsis secondary to right lower extremity cellulitis/osteomyelitis Bacteremia Chronic systolic congestive heart failure Atrial fibrillation on chronic anticoagulation CKD 3 History of CAD with history of CABG Hypertension Hyperlipidemia Diabetes mellitus type 2 BPH Patient was admitted to the hospital for wound to the right foot he was found to have osteomyelitis and bacteremia. He was initially started on vancomycin and subsequently transition to daptomycin only to be continued daily through 07/27/2024. Should have a weekly CBC, BMP and CPK while on antibiotics. His other home medication should be continued as previously prescribed. He follows with Dr. Kendrick general surgeon outpatient. Repeat blood cultures were obtained and showed no growth. IV antibiotic course Daptomycin 500 mg IV daily through 07/27/2024this makes for a total of 6 weeks of IV antibiotics from admission. PICC line is in place. Weekly CPK, BMP, CBC while on antibiotics at [facility]. Flush PICC line with 10 mL of NS before and after antibiotic ministration. Dressing changes per policy. PICC line to be removed after completion of IV antibiotics. Vital Signs/Physical Exam: Temp Pulse Resp BP Pulse Ox 97.6 F 63 16 103/54 L 97 06/30/24 12:00 06/30/24 12:00 06/30/24 12:00 06/30/24 12:00 06/30/24 12:00 General: Alert, In no apparent distress, Oriented x3 HEENT: Atraumatic, PERRLA Neck: Supple, JVD not distended Respiratory: Clear to auscultation bilaterally, Normal air movement Cardiovascular: Regular rate/rhythm, Normal S1 S2 Gastrointestinal: Normal bowel sounds, No tenderness Musculoskeletal: Other (LEFT BKA) Integumentary: Other (Wound to right foot with dressing intact) Neurological: Normal speech, Normal affect Laboratory Data at Discharge: WBC 10.30 thou/uL (4.3-10.9) 06/27/24 04:46 Hgb 9.6 g/dL (13.6-17.9) L 06/27/24 04:46 Hct 29.4 % (39.6-49.0) L 06/27/24 04:46 Plt Count 438 thou/uL (152-406) H 06/27/24 04:46 PT 26.1 SECONDS (10-13.0) H 06/15/24 11:54 INR 2.39 06/15/24 11:54 Sodium 137 mEq/L (136-145) 06/28/24 04:38 Potassium 4.2 mEq/L (3.5-5.1) 06/28/24 04:38 BUN 61 mg/dL (7-18) H 06/28/24 04:38 Creatinine 1.37 mg/dL (0.70-1.30) H 06/28/24 04:38 Glucose 253 mg/dL (74-106) H 06/28/24 04:38 Phosphorus 3.3 mg/dL (2.5-4.9) 06/27/24 04:46 Magnesium 2.1 mg/dL (1.6-2.4) 06/27/24 04:46 Total Bilirubin 0.4 mg/dL (0.2-1.0) 06/19/24 05:24 AST 16 U/L (15-37) 06/19/24 05:24 ALT 17 U/L (16-61) 06/19/24 05:24 Alkaline Phosphatase 74 U/L (45-117) 06/19/24 05:24 Home Medications: Insulin Degludec [Tresiba Flextouch U-200] 40 units SQ BEDTIME 04/14/18 Tamsulosin HCl 0.4 mg PO BEDTIME 04/14/18 Sotalol HCl [Betapace*] 80 mg PO BID 6AM 6PM #60 tab 05/28/19 glipiZIDE [Glipizide ER] 10 mg PO BID 02/08/20 Dapagliflozin Propanediol [Farxiga] 5 mg PO DAILY 03/28/21 Losartan Potassium 25 mg PO DAILY 03/28/21 Rivaroxaban [Xarelto] 20 mg PO BEDTIME 03/28/21 Rosuvastatin Calcium [Crestor] 20 mg PO DAILY 03/28/21 Famotidine 20 mg PO DAILY 01/28/23 Finasteride 5 mg PO DAILY 01/28/23 Magnesium Oxide [Magnesium] 500 mg PO BID 01/28/23 Zinc Gluconate [Zinc] 30 mg PO DAILY 01/28/23 Liothyronine Sodium [Cytomel] 25 mcg PO ACB 30 Days #30 tab 01/30/23 Torsemide [Demadex*] 20 mg PO Q24H 60 Days #60 tab 03/24/23 Benzonatate [Tessalon Perle*] 100 mg PO TID PRN cap 06/30/24 Collagenase [Santyl Ointment*] 1 appl TOP DAILY gm 06/30/24 Physician Discharge Instructions: Patient was admitted to the hospital for wound to the right foot he was found to have osteomyelitis and bacteremia. He was initially started on vancomycin and subsequently transition to daptomycin only to be continued daily through 07/27/2024. Should have a weekly CBC, BMP and CPK while on antibiotics. His other home medication should be continued as previously prescribed. He follows with Dr. Kendrick general surgeon outpatient. Repeat blood cultures were obtained and showed no growth. IV antibiotic course Daptomycin 500 mg IV daily through 07/27/2024this makes for a total of 6 weeks of IV antibiotics from admission. PICC line is in place. Weekly CPK, BMP, CBC while on antibiotics at [facility]. Flush PICC line with 10 mL of NS before and after antibiotic ministration. Dressing changes per policy. PICC line to be removed after completion of IV antibiotics. Diet: ADA Activity: Fall precautions Followup: Augusta Winkler [Primary Care Provider] - 1-2 Weeks Time spent managing pt's care (in minutes): 56
[2024-06-30 17:11] VITALS: BP 109/59
[2024-06-30] MEDS ORDERED: INSULIN GLARGINE 100 UNIT/ML SQ SCH (21:00)
--- NOTE | 2024-06-30 22:34 | PN ---
Date of Progress Note: 06/30/2024 Subjective: The patient is lying in bed. No new acute event. Chart reviewed. Being discharged tod ay. Denies any other problems. Objective: Vital Signs: Reviewed. Lungs: Basal crackles. Heart: S1, S2. Regular. Abdomen: Soft, nontender. Bowel sounds present. Extremities: Wounds noted. Laboratory Data: Reviewed. Assessment And Plan: 1. Methicillin-resistant Staphylococcus aureus bacteremia, currently on IV daptomycin, to be completi ng 42 days' worth of antibiotic. Monitor CK level on a weekly basis. 2. Right foot osteomyelitis and diabetic foot ulcer. We will follow the patient as needed. NF/MODL Voice ID: [id number] Report ID: [id number]
== END 2024-06-30 18:58 | DRG 872 ==
LOC: ER 10:14 → ERHOLD 12:55 → 4TH 16:34 → ERHOLD 16:40 → 2ND 18:41
PROVIDERS: ADMIT Hospitalist; ATTEND Hospitalist
PROC: 02HV33Z Insertion of Infusion Device into Superior Vena Cava, Percutaneous Approach (ICD-10-PCS; principal; 2024-06-15)
DX: A41.02 Sepsis due to Methicillin resistant Staphylococcus aureus (principal); I13.0 Hypertensive heart and chronic kidney disease with heart failure and stage 1 through stage 4 chronic kidney disease, or unspecified chronic kidney disease; L03.115 Cellulitis of right lower limb; I50.22 Chronic systolic (congestive) heart failure; M86.171 Other acute osteomyelitis, right ankle and foot; R65.20 Severe sepsis without septic shock; E11.69 Type 2 diabetes mellitus with other specified complication; N18.30 Chronic kidney disease, stage 3 unspecified; E11.22 Type 2 diabetes mellitus with diabetic chronic kidney disease; E11.65 Type 2 diabetes mellitus with hyperglycemia; E11.40 Type 2 diabetes mellitus with diabetic neuropathy, unspecified; D63.1 Anemia in chronic kidney disease; E66.9 Obesity, unspecified; I48.91 Unspecified atrial fibrillation; N40.0 Benign prostatic hyperplasia without lower urinary tract symptoms; I25.10 Atherosclerotic heart disease of native coronary artery without angina pectoris; Z88.5 Allergy status to narcotic agent; Z95.1 Presence of aortocoronary bypass graft; Z88.8 Allergy status to other drugs, medicaments and biological substances; Z68.24 Body mass index [BMI] 24.0-24.9, adult; Z85.46 Personal history of malignant neoplasm of prostate; Z79.4 Long term (current) use of insulin; Z79.84 Long term (current) use of oral hypoglycemic drugs; Z79.01 Long term (current) use of anticoagulants; Z79.899 Other long term (current) drug therapy; Z89.512 Acquired absence of left leg below knee
CPT/HCPCS: 36415; 71045; 80048; 80053; 80076; 80202; 81001; 82550; 82947; 83605; 83735; 83880; 84100; 84484; 85025; 85027; 85610; 86140; 87040; 87077; 87186; 87205; 93005; 96361; 96365; 96366; 96375; 97110; 97161; 97530; 99285; J0692; J0878; J1650; J1815; J2405; J2550; J3010; J3370; J3590; J7030; J7050

== ENCOUNTER 2024-10-19 21:51 | Inpatient (IN) | payer OTHER ==
--- NOTE | 2024-10-19 22:35 | RAD REPORT ---
EXAMINATION: ONE VIEW CHEST XR CLINICAL INDICATION: Male, 79 years old.,COUGH TECHNIQUE: Frontal chest projection is submitted. Examination is limited by patient positioning and t echnique. COMPARISON: 10/14/2024 FINDINGS: The lungs are well inflated and clear. No pneumothorax or sizable effusion. Advanced cardiomegaly. M ediastinal contours are unchanged with sequelae of CABG. IMPRESSION: No acute intrathoracic abnormalities. Advanced cardiomegaly again seen.
[2024-10-19 23:36] LABS: Absolute Lymphocytes (CBC) 0.6 K/uL (0.7-4.9); Hematocrit 25.0 % (39.6-49.0); Hemoglobin 8.1 g/dL (13.6-17.9); MCH 22.4 pg (27.0-35.0); MCHC 32.4 g/dL (32.0-36.0); MCV 69.4 fL (80-100); MPV 6.5 fL (7.6-11.3); Nucleated RBC Absolute Count 0.0 (0-0); Nucleated Red Blood Cells % 0.1 % (0-0); RBC Red Blood Cell Count 3.61 M/uL (4.33-5.43); White Blood Count 8.70 thou/uL (4.3-10.9)
[2024-10-19 23:44] LABS: PT Prothrombin Time 52.3 SECONDS (10-13.0); Protime INR 4.85
[2024-10-19 23:55] LABS: AST/SGOT 19 U/L (15-37); Albumin 2.2 g/dL (3.4-5.0); Albumin/Globulin Ratio 0.5 (1.1-1.8); Alkaline Phosphatase 79 U/L (45-117); Anion Gap 8.5 mEq/L (5.0-15.0); BUN Blood Urea Nitrogen 37 mg/dL (7-18); Bilirubin Indirect, Calculated 0.4 mg/dL (0.2-0.8); Globulin 4.1 g/dL (2.3-3.5); Glucose Level 242 mg/dL (74-106); Lipase 46 U/L (13-75); Magnesium 2.1 mg/dL (1.6-2.4); NT PRO-BNP 19140 pg/mL (<450); Potassium 4.5 mEq/L (3.5-5.1); Troponin High Sensitivity 39.1 pg/mL (<58.9)
[2024-10-19 23:59] LABS: ALT/SGPT < 14 U/L (16-61)
[2024-10-20] MEDS ORDERED: ALBUMIN HUMAN 25% 100 ML IV ONE (00:06)
[2024-10-20 00:37] LABS: Anisocytosis 2+; Blood Morphology Comment NOTED (NOT SEEN); Burr Cells 2+; Hypochromasia 1+; Microcytosis 1+; White Blood Cell Scan OK (OK)
--- NOTE | 2024-10-20 01:09 | ER ---
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 Coronavirus screen: Client denies travel out of the [place] in the last 14 days. At this time, the client does not indicate any symptoms associated with coronavirus-19. Ebola Screen: Patient negative for fever greater than or equal to 101.5 degrees Fahrenheit, and additional compatible Ebola Virus Disease symptoms Patient denies exposure to infectious person. Patient denies travel to an Ebola-affected area in the 21 days before illness onset. No symptoms or risks identified at this time. 22:15 Method Of Arrival: Wheelchair vc1 22:15 Initial Sepsis Screen: Does the patient meet any 2 criteria? No. Patient's initial vc1 sepsis screen is negative. Does the patient have a suspected source of infection? No. Patient's initial sepsis screen is negative. Risk Assessment: Do you want to hurt yourself or someone else? Patient reports no desire to harm self or others. Onset of symptoms was October 19, 2024. 22:15 Acuity: ZENAIDA 3 vc1 Triage Assessment: 22:15 General: Appears in no apparent distress. uncomfortable, ill, obese, unkempt, Behavior vc1 is cooperative, appropriate for age. Pain: Denies pain. EENT: No deficits noted. No signs and/or symptoms were reported regarding the EENT system. Neuro: Level of Consciousness is awake, alert, obeys commands, Oriented to person, place, time, situation, Appropriate for age Reports weakness. Cardiovascular: Denies chest pain. Respiratory: Airway is patent Respiratory effort is even, unlabored, Respiratory pattern is regular, symmetrical. GI: No deficits noted. No signs and/or symptoms were reported involving the gastrointestinal system. : No deficits noted. No signs and/or symptoms were reported regarding the genitourinary system. Derm: Skin is moist. Musculoskeletal: Swelling present in right arm, left arm, right leg and left leg. Historical: - Allergies: 22:15 Codeine; vc1 22:15 Demerol; vc1 22:15 fedrazil; vc1 22:15 hydrocodone bitartrate; vc1 22:15 Vicodin; vc1 - PMHx: 22:15 Atrial Fib; CAD; CHF; Diabetes - IDDM; HTN; PROSTATE CA; Right foot wound with wound vc1 vac in place (Unknown); - PSHx: 22:15 Bladder; Coronary artery bypass graft; Left BKA; prostate; Stented artery; vc1 - Immunization history:: Adult Immunizations up to date. - Infectious Disease History:: Denies. - Social history:: Smoking status: unknown. - Family history:: not pertinent. Screenin:44 [facility] ED Fall Risk Assessment (Adult) History of falling in the last 3 months, vc1 including since admission No falls in past 3 months (0 pts) Confusion or Disorientation No (0 pts) Intoxicated or Sedated No (0 pts) Impaired Gait Yes (1 pt) Mobility Assist Device Used Yes (1 pt) Altered Elimination Yes (1 pt) Score/Fall Risk Level 3 or more points = High Risk Oriented to surroundings, Maintained a safe environment, Educated pt \T\ family on fall prevention, incl call for assistance when getting out of bed, Assessed \T\ reinforced patient's understanding of fall precautions, Hourly rounding (assess needs \T\ fall precautionary measures) done, Implemented a Fall Risk Plan of Care, Offered frequent toileting (1:1 observation), Remained with patient while ambulating. Abuse screen: Denies threats or abuse. Nutritional screening: No deficits noted. Tuberculosis screening: No symptoms or risk factors identified. Assessment: 22:15 General: Appears in no apparent distress. comfortable, Behavior is calm, cooperative, ss12 quiet. Pain: Denies pain. Neuro: No deficits noted. 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 able to transfer with 2 assist from wheelchair to bed. Reports weakness in Generalized. Cardiovascular: No deficits noted. Denies chest pain, Patient's skin is warm and dry. Respiratory: No deficits noted. Airway is patent Respiratory effort is even, unlabored, Respiratory pattern is regular, symmetrical. GI: No deficits noted. No signs and/or symptoms were reported involving the gastrointestinal system. Abdomen is round. : No deficits noted. No signs and/or symptoms were reported regarding the genitourinary system. EENT: No deficits noted. No signs and/or symptoms were reported regarding the EENT system. Derm: No deficits noted. No signs and/or symptoms reported regarding the dermatologic system. Musculoskeletal: No signs and/or symptoms reported regarding the musculoskeletal system. Reports generalized weakness. edema right leg 2+ noted. Left leg amputated. 23:15 Reassessment: Patient appears in no apparent distress at this time. Patient and/or ss12 family updated on plan of care and expected duration. Pain level reassessed. Patient is alert, oriented x 3, equal unlabored respirations, skin warm/dry/pink. 10/20 00:15 Reassessment: Patient appears in no apparent distress at this time. Patient and/or ss12 family updated on plan of care and expected duration. Pain level reassessed. Patient is alert, oriented x 3, equal unlabored respirations, skin warm/dry/pink. 00:15 Reassessment: Patient appears in no apparent distress at this time. Patient and/or ss12 family updated on plan of care and expected duration. Pain level reassessed. Patient is alert, oriented x 3, equal unlabored respirations, skin warm/dry/pink. 02:11 Reassessment: Patient appears in no apparent distress at this time. Patient and/or ss12 family updated on plan of care and expected duration. Pain level reassessed. Patient is alert, oriented x 3, equal unlabored respirations, skin warm/dry/pink. 04:25 Reassessment: Patient appears in no apparent distress at this time. Patient and/or ss12 family updated on plan of care and expected duration. Pain level reassessed. Patient is alert, oriented x 3, equal unlabored respirations, skin warm/dry/pink. Vital Signs: 10/19 22:15 BP 99 / 62; Pulse 82; Resp 20; Temp 98.1; Pulse Ox 98% ; Weight 102.51 kg; Height 6 ft. vc1 2 in. ; 22:35 BP 99 / 62; Pulse 83; Resp 16; Pulse Ox 97% on R/A; ss12 23:00 BP 72 / 43; Pulse 93; Resp 16 S; Pulse Ox 96% on R/A; ss12 10/20 00:00 BP 82 / 66; Pulse 93; Resp 16 S; Pulse Ox 95% on R/A; ss12 01:00 BP 93 / 50; Pulse 92; Resp 16; Pulse Ox 96% ; ss12 01:30 BP 95 / 76; Pulse 90; Resp 16; Pulse Ox 95% on R/A; ss12 04:12 BP 92 / 70; Pulse 90; Resp 16; Pulse Ox 97% on 2 lpm NC; ss12 10/19 22:15 Body Mass Index 29.02 (102.51 kg, 187.96 cm) vc1 [place] Coma Score: 10/19 22:35 Eye Response: spontaneous(4). Motor Response: obeys commands(6). Verbal Response: ss12 oriented(5). Total: 15. ED Course: 21:54 Patient arrived in ED. [id number] 21:55 Davon Arredondo MD is Attending Physician. laila 22:14 Jovany Manzo, RN is Primary Nurse. ss12 22:15 Arm band placed on right wrist. vc1 22:17 XRAY Chest (1 view) In Process Unspecified. EDMS 22:43 Triage completed. vc1 22:45 Patient has correct armband on for positive identification. Bed in low position. Call vc1 light in reach. Provided Education on: Plan of care. shared services manager on. Pulse ox on. NIBP on. 22:50 EKG done, by ED staff, reviewed by Davon Arredondo MD. oe 23:00 Missed attempt(s): Bleeding controlled, band aid applied, catheter tip intact. oe 23:03 Inserted saline lock: 22 gauge in left forearm, using aseptic technique. Blood oe collected. Flushed with 10 mL NS. 23:04 Lipase Sent. oe 23:04 Basic Metabolic Panel Sent. oe 23:04 CBC with Diff Sent. oe 23:04 LFT's Sent. oe 23:04 Magnesium Sent. oe 23:04 NT PRO-BNP Sent. oe 23:04 PT-INR Sent. oe 23:04 Troponin HS Sent. oe 10/20 01:07 Jose David Pelaez MD is Hospitalizing Provider. [facility] 02:15 No provider procedures requiring assistance completed. 12 05:11 Patient admitted, IV remains in place. ss12 Administered Medications: 10/19 23:50 Drug: Albumin IVPB 25 grams 100 ml IVPB once; (Note: Albumin 25% concentration) Volume: ss12 100 ml; Route: IVPB; Site: right antecubital; 10/20 01:00 Follow up: IV Status: Completed infusion; IV Intake: 100ml [facility] 00:58 Drug: Sotalol PO 80 mg PO once Route: PO; 12 02:15 Follow up: Response: No adverse reaction [facility] 00:58 Drug: Pantoprazole IVP 40 mg IVP once Route: IVP; Site: right antecubital; 12 02:15 Follow up: Response: No adverse reaction [facility] Medication: 10/19 22:45 VIS not applicable for this client. vc1 Intake: 10/20 01:00 IV: 100ml; Total: 100ml. 12 Outcome: 01:08 Decision to Hospitalize by Provider. [facility] 05:11 Admitted to Med/surg accompanied by tech, room 211, 12 05:11 Condition: stable 05:12 Patient left the ED. ss12 Signatures: Dispatcher [employer] EDMS Davon Arredondo MD MD cha Espinosa, Orlando oe Jeffries, Jennifer [email or web address] Shauna Cao, RN RN vc1 Jovany Manzo RN RN ss12
--- NOTE | 2024-10-20 01:09 | EDPHYS ---
Physician Documentation [facility] Name: Navjot Collins Age: 79 yrs Sex: Male : 1945 Arrival Date: 10/19/2024 Time: 21:51 Bed 18 Private MD: MIKAEL Physician Davon Arredondo HPI: 10/20 00:59 This 79 yrs old Male presents to ER via Wheelchair with complaints of laila Swelling of Lower Extremity, SWELLING OF UPPER EXT, Weakness. 00:59 The patient presents with decreased range of motion, pain, that is acute. The laila complaints affect the right leg and left leg. Context: The problem was sustained at home, in the hospital, resulted from an unknown cause. Onset: The symptoms/episode began/occurred 3 day(s) ago. Modifying factors: The symptoms are alleviated by nothing. the symptoms are aggravated by nothing. Associated signs and symptoms: The patient has no apparent associated signs or symptoms. Treatment prior to arrival includes: see [facility]. Severity of symptoms: At their worst the symptoms were mild, in the emergency department the symptoms are unchanged. The patient has experienced similar episodes in the past, multiple times. Historical: - Allergies: 10/19 22:15 Codeine; vc1 22:15 Demerol; vc1 22:15 fedrazil; vc1 22:15 hydrocodone bitartrate; vc1 22:15 Vicodin; vc1 - PMHx: 22:15 Atrial Fib; CAD; CHF; Diabetes - IDDM; HTN; PROSTATE CA; Right foot wound with wound vc1 vac in place (Unknown); - PSHx: 22:15 Bladder; Coronary artery bypass graft; Left BKA; prostate; Stented artery; vc1 - Immunization history:: Adult Immunizations up to date. - Infectious Disease History:: Denies. - Social history:: Smoking status: unknown. - Family history:: not pertinent. ROS: 10/20 00:59 Constitutional: Negative for fever, chills, and weight loss, Eyes: Negative for injury, laila pain, redness, and discharge, ENT: Negative for injury, pain, and discharge, Neck: Negative for injury, pain, and swelling, Cardiovascular: Negative for chest pain, palpitations, and edema, Respiratory: Negative for shortness of breath, cough, wheezing, and pleuritic chest pain, Abdomen/GI: Negative for abdominal pain, nausea, vomiting, diarrhea, and constipation, Back: Negative for injury and pain, : Negative for injury, bleeding, discharge, and swelling, Neuro: Negative for headache, weakness, numbness, tingling, and seizure, Psych: Negative for depression, anxiety, suicide ideation, homicidal ideation, and hallucinations, Allergy/Immunology: Negative for hives, rash, and allergies, Endocrine: Negative for neck swelling, polydipsia, polyuria, polyphagia, and marked weight changes, Hematologic/Lymphatic: Negative for swollen nodes, abnormal bleeding, and unusual bruising, MS/extremity: Positive for pain, tenderness, Exam: 00:59 Constitutional: This is a well developed, well nourished patient who is awake, alert, laila and in no acute distress. Head/Face: Normocephalic, atraumatic. Eyes: Pupils equal round and reactive to light, extra-ocular motions intact. Lids and lashes normal. Conjunctiva and sclera are non-icteric and not injected. Cornea within normal limits. Periorbital areas with no swelling, redness, or edema. ENT: Nares patent. No nasal discharge, no septal abnormalities noted. Tympanic membranes are normal and external auditory canals are clear. Oropharynx with no redness, swelling, or masses, exudates, or evidence of obstruction, uvula midline. Mucous membranes moist. Neck: Trachea midline, no thyromegaly or masses palpated, and no cervical lymphadenopathy. Supple, full range of motion without nuchal rigidity, or vertebral point tenderness. No Meningismus. Chest/axilla: Normal chest wall appearance and motion. Nontender with no deformity. No lesions are appreciated. Respiratory: Lungs have equal breath sounds bilaterally, clear to auscultation and percussion. No rales, rhonchi or wheezes noted. No increased work of breathing, no retractions or nasal flaring. Abdomen/GI: Soft, non-tender, with normal bowel sounds. No distension or tympany. No guarding or rebound. No evidence of tenderness throughout. Back: No spinal tenderness. No costovertebral tenderness. Full range of motion. Male : Normal genitalia with no discharge or lesions. Skin: Warm, dry with normal turgor. Normal color with no rashes, no lesions, and no evidence of cellulitis. Psych: Awake, alert, with orientation to person, place and time. Behavior, mood, and affect are within normal limits. 00:59 Cardiovascular: Rate: normal, Rhythm: irregularly irregular, Pulses: Pulses are 4+ in bilateral radial, brachial, femoral, popliteal, posterior tibial and and dorsalis pedis arteries.. Edema: 1+ edema to level of left lower thigh, right lower thigh and right midcalf, 00:59 ECG was reviewed by the Attending Physician. 00:59 Musculoskeletal/extremity: ROM: full active range of motion, full passive range of motion, limited active range of motion due to pain, limited passive range of motion due to pain, in the right leg and left leg, Circulation is intact in all extremities. Sensation intact. Compartment Syndrome exam of affected extremity: is normal. Weight bearing: is unable to bear weight, DVT Exam: negative Homans' sign noted on exam, no appreciated bluish discoloration, no erythema, no increased warmth, pain, swelling, tenderness, Vital Signs: 10/19 22:15 BP 99 / 62; Pulse 82; Resp 20; Temp 98.1; Pulse Ox 98% ; Weight 102.51 kg; Height 6 ft. vc1 2 in. ; 22:35 BP 99 / 62; Pulse 83; Resp 16; Pulse Ox 97% on R/A; [facility] 23:00 BP 72 / 43; Pulse 93; Resp 16 S; Pulse Ox 96% on R/A; [facility] 10/20 00:00 BP 82 / 66; Pulse 93; Resp 16 S; Pulse Ox 95% on R/A; [facility] 01:00 BP 93 / 50; Pulse 92; Resp 16; Pulse Ox 96% ; [facility] 01:30 BP 95 / 76; Pulse 90; Resp 16; Pulse Ox 95% on R/A; [facility] 04:12 BP 92 / 70; Pulse 90; Resp 16; Pulse Ox 97% on 2 lpm NC; [facility] 10/19 22:15 Body Mass Index 29.02 (102.51 kg, 187.96 cm) vc1 [place] Coma Score: 10/19 22:35 Eye Response: spontaneous(4). Motor Response: obeys commands(6). Verbal Response: ss12 oriented(5). Total: 15. MDM: 21:55 Medical Screening Exam initiated laila :01 Medical Screening Exam initiated [facility] 10/20 01:05 Differential diagnosis: tendonitis. Data reviewed: vital signs, nurses notes, lab test laila result(s), EKG, radiologic studies, plain films. Consideration of Admission/Observation Patient was admitted/placed on observation. Escalation of care including admission/observation considered. I considered the following discharge prescriptions or medication management in the emergency department Medications were administered in the Emergency Department. See MAR. Independent interpretation of the following test(s) in the Emergency Department EKG: See my EKG interpretation above. Test considered but Not performed:. Care significantly affected by the following chronic conditions: Diabetes, Hypertension, Congestive Heart Failure, Chronic Kidney Disease. 10/19 21:58 Order name: Basic Metabolic Panel; Complete Time: 00:17 [facility] 10/19 21:58 Order name: CBC with Diff; Complete Time: 00:55 [facility] 10/19 21:58 Order name: LFT's; Complete Time: 00:17 [facility] 10/19 21:58 Order name: Magnesium; Complete Time: 00:17 [facility] 10/19 21:58 Order name: NT PRO-BNP; Complete Time: 00:17 [facility] 10/19 21:58 Order name: PT-INR; Complete Time: 00:17 [facility] 10/19 21:58 Order name: Troponin HS; Complete Time: 00:17 [facility] 10/19 21:58 Order name: Lipase; Complete Time: 00:17 [facility] 10/19 21:58 Order name: UA Rfx Stephen Cult if indicated; Complete Time: 04:54 [facility] 10/19 23:40 Order name: CBC Smear Scan; Complete Time: 00:55 [facility] 10/20 00:19 Order name: Type And Screen; Complete Time: 04:54 [facility] 10/20 01:33 Order name: CBC with Automated Diff [facility] 10/20 01:33 Order name: CBC with Automated Diff [facility] 10/20 01:33 Order name: Comprehensive Metabolic Panel [facility] 10/20 01:33 Order name: Comprehensive Metabolic Panel [facility] 10/20 01:33 Order name: Troponin High Sensitivity [facility] 10/20 01:33 Order name: Troponin High Sensitivity [facility] 10/20 01:33 Order name: Troponin High Sensitivity [facility] 10/20 01:33 Order name: Troponin High Sensitivity [facility] 10/19 21:58 Order name: XRAY Chest (1 view); Complete Time: 00:17 [facility] 10/19 21:58 Order name: EKG; Complete Time: 21:59 [facility] 10/19 21:58 Order name: Cardiac monitoring; Complete Time: 22:40 [facility] 10/19 21:58 Order name: EKG - Nurse/Tech; Complete Time: 22:40 [facility] 10/19 21:58 Order name: IV Saline Lock; Complete Time: 02:17 [facility] 10/19 21:58 Order name: Labs collected and sent; Complete Time: 02:17 [facility] 10/19 21:58 Order name: O2 Per Protocol; Complete Time: 22:40 [facility] 10/19 21:58 Order name: O2 Sat Monitoring; Complete Time: 22:40 [facility] EC:59 Rate is 88 beats/min. Rhythm is irregularly irregular. QRS [place] is Normal. [place] interval laila is normal. QRS interval is normal. QT interval is normal. No Q waves. T waves are Normal. No ST changes noted. Clinical impression: Atrial Fibrillation and No evidence of ischemia. Interpreted by me. Reviewed by me. Administered Medications: 10/19 23:50 Drug: Albumin IVPB 25 grams 100 ml IVPB once; (Note: Albumin 25% concentration) Volume: ss12 100 ml; Route: IVPB; Site: right antecubital; 10/20 01:00 Follow up: IV Status: Completed infusion; IV Intake: 100ml 12 00:58 Drug: Sotalol PO 80 mg PO once Route: PO; ss12 02:15 Follow up: Response: No adverse reaction 12 00:58 Drug: Pantoprazole IVP 40 mg IVP once Route: IVP; Site: right antecubital; ss12 02:15 Follow up: Response: No adverse reaction 12 Disposition Summary: 10/20/24 01:08 Hospitalization Ordered Notes: Hospitalization Status: Inpatient Admission laila Provider: Jose David Pelaez cha Condition: Fair laila Problem: an acute exacerbation laila Symptoms: are unchanged laila Bed/Room Type: Standard laila Location: Telemetry/MedSurg (Inpatient)(10/20/24 04:03) Room Assignment: [facility](10/20/24 04:03) kl Diagnosis - Edema, unspecified laila - Chronic atrial fibrillation laila - assisted (current) use of anticoagulants laila - Anemia, unspecified laila - Chronic combined systolic (congestive) and diastolic (congestive) heart failure laila - Hypotension, unspecified laila - UTI/ Urinary tract infection, site not specified laila Forms: - Medication Reconciliation Form laila - SBAR form laila - Leadership Thank You Letter laila Signatures: Dispatcher [employer] EDPerlita Lake, RN RN Davon Beckford MD MD cha Calcote, Vanessa RN RN vc1 Jovany Manzo RN RN ss12 Corrections: (The following items were deleted from the chart) 10/19 21:59 21:58 BASIC METABOLIC PANEL+C.LAB.BRZ ordered. EDMS EDMS :59 21:58 CBC+H.LAB.BRZ ordered. EDMS EDMS 21:59 21:58 HEPATIC FUNCTION+C.LAB.BRZ ordered. EDMS EDMS : 21:58 MAGNESIUM+C.LAB.BRZ ordered. EDMS EDMS :59 21:58 PROBNP+C.LAB.BRZ ordered. EDMS EDMS :59 21:58 PROTIME (+INR)+COAG.LAB.BRZ ordered. EDMS EDMS :59 21:58 Troponin High Sensitivity+C.LAB.BRZ ordered. EDMS EDMS :59 21:58 LIPASE+C.LAB.BRZ ordered. EDMS EDMS 21:59 21:58 UA Rfx Stephen Cult if indicated+U.LAB.BRZ ordered. EDMS EDMS 10/20 00:19 00:19 TYPE AND SCREEN+BB.LAB.BRZ ordered. EDMS EDMS 01:14 01:08 Telemetry/MedSurg (Inpatient) laila vc1 01:14 01:08 laila vc1 04:03 01:14 [facility] ER HOLD vc1 kl 04:03 01:14 ERHOLD- vc1 kl
--- NOTE | 2024-10-20 01:28 | P.HP ---
Certification for Inpatient Patient admitted to: Inpatient With expected LOS: >2 Midnights Practitioner: I am a practitioner with admitting privileges, knowledge of patient current condition, hospital course, and medical plan of care. Services: Services provided to patient in accordance with Admission requirements found in Title 42 Section 412.3 of the Code of Federal Regulations Patient History Date of Service: 10/20/24 Reason for admission: Swelling History of Present Illness: 79-year-old male with history of chronic systolic congestive heart failure, CAD with previous CABG, diabetes mellitus type 2, previous left BKA, chronic right foot wound, BPH and hypertension presents to the emergency department with chief complaint of swelling of bilateral lower extremities and generalized weakness. Patient states that he has having decreased range of movements and pain of right leg and left leg as well. Patient has been admitted to the hospital and was just recently discharged but the pain and swelling got worsened and was brought back to the ER. Patient denies any chest pain or shortness of breath. No fever or chills. No nausea vomiting or diarrhea. Patient was assessed in the ER and is admitted for further management Allergies hydrocodone [From Vicodin] Allergy (Verified 10/14/24 20:09) Nausea/Vomiting codeine Adverse Reaction (Verified 10/14/24 20:09) Nausea/Vomiting hydrocodone bitartrate [From Vicodin] Adverse Reaction (Verified 10/14/24 20:09) Nausea/Vomiting Home medications list reviewed: Yes Home Medications: Insulin Degludec [Tresiba Flextouch U-200] 40 units SQ BEDTIME 04/14/18 Tamsulosin HCl 0.4 mg PO BEDTIME 04/14/18 Sotalol HCl [Betapace*] 80 mg PO BID 6AM 6PM #60 tab 05/28/19 glipiZIDE [Glipizide ER] 10 mg PO BID 02/08/20 Dapagliflozin Propanediol [Farxiga] 5 mg PO DAILY 03/28/21 Losartan Potassium 25 mg PO DAILY 03/28/21 Rivaroxaban [Xarelto] 20 mg PO BEDTIME 03/28/21 Rosuvastatin Calcium [Crestor] 20 mg PO BEDTIME 03/28/21 Famotidine 20 mg PO DAILY 01/28/23 Finasteride 5 mg PO DAILY 01/28/23 Magnesium Oxide [Magnesium] 500 mg PO BID 01/28/23 Zinc Gluconate [Zinc] 30 mg PO DAILY 01/28/23 Benzonatate [Tessalon Perle*] 100 mg PO TID PRN cap 06/30/24 Liothyronine Sodium [Cytomel] 25 mcg PO DAILY 08/02/24 Guaifen W/Codeine Syrup [ROBITUSSIN A-C Syrup*] 10 ml PO Q12HP PRN #100 ml 08/05/24 levoFLOXacin [Levaquin*] 750 mg PO DAILY 40 Days #40 tab 08/10/24 Zinc Oxide [Zinc Oxide 20%*] 1 appl TOP DAILY tube 09/10/24 Furosemide [Lasix] 40 mg PO DAILY #30 tab 10/19/24 - Past Medical/Surgical History Diabetic: Yes Past Medical History: Reviewed- Non-Contributory -: DM II -: HTN -: CKD III (Dr. Márquez/ Dr. Aguilar) -: Systolic CHF -: CAD -: HLD -: Atrial fibrillation on chronic anticoagulation -: Enlarged Prostate with LUTS -: Prostate cancer -: PAD Past Surgical History: Reviewed- Non-Contributory -: carotid stent -: CABG 2016 -: BKA left leg -: Prostate surgery -: bladder surgery -: skin graft Psychosocial/ Personal History: Patient lives at home with his family - Family History Family History: Reviewed- Non-Contributory - Family History Father -: Heart disease Mother -: Lung disease Notes: COPD, leaking heart valve, emphysema - Social History Smoking Status: Never smoker Alcohol use: No CD- Drugs: No Caffeine use: Yes Review of Systems 10-point ROS is otherwise unremarkable Physical Examination - Physical Exam General: Alert, Oriented x3, Cooperative, Mild distress HEENT: Atraumatic, Normocephalic Neck: Supple Respiratory: Clear to auscultation bilaterally, Normal air movement Cardiovascular: Regular rate/rhythm, Normal S1 S2, Edema Capillary refill: <2 Seconds Gastrointestinal: Soft and benign, W/out hepatosplenomegaly Musculoskeletal: No clubbing, Swelling Integumentary: No rashes Neurological: Other (Alert awake nonfocal) Lymphatics: No axilla or inguinal lymphadenopathy - Studies Laboratory Data (last 24 hrs) 10/19/24 10/19/24 10/19/24 23:03 23:03 23:03 WBC 8.70 Hgb 8.1 L Hct 25.0 L Plt Count 232 PT 52.3 H INR 4.85 Sodium 135 L Potassium 4.5 BUN 37 H Creatinine 1.80 H Glucose 242 H Magnesium 2.1 Total Bilirubin 0.8 AST 19 ALT < 14 L Alkaline Phosphatase 79 Lipase 46 Assessment and Plan - Plan Acute on chronic systolic congestive heart failure Monitor volume status closely Diuresis IV Monitor volume status Atrial fibrillation on chronic anticoagulation On Xarelto outpatient and sotalol Monitor closely on telemetry Hypertension Antihypertensives titrated Continue home medications and titrate as needed Hyperlipidemia Continue statin CKD stage III Monitor renal parameters Electrolytes monitor and replace accordingly Diabetes Insulin sliding scale Accu-Chek before every meal and at bedtime CAD Anemia of chronic disease Right foot wound PROSTATE CA Continue home medications and titrate as needed GI/DVT prophylaxis Advanced directive full code Discharge Plan: Home Plan to discharge in: 48 Hours - Advance Directives Does patient have a Living Will: Yes Does patient have a Durable POA for Healthcare: No - Code Status/Comfort Care Code Status: Full Code Time Spent Managing Pts Care (In Minutes): 48
[2024-10-20 01:41] LABS: Sqamous Epithelial <5 /HPF (None Seen); Urine Culture Reflex Order REFLEXED; Urine Microscopic Reflex YN ORDER UMIC; Urine Yeast (Budding) Few /HPF (None Seen)
[2024-10-20] MEDS ORDERED: PANTOPRAZOLE 40 MG INJ ONE (01:44)
[2024-10-20] MEDS ORDERED: SOTALOL HCL 80 MG TAB ONE (01:45)
[2024-10-20] MEDS: FUROSEMIDE 40 MG/4 ML VIAL IV SCH ×2 (02:48→09:00)
[2024-10-20] MEDS ORDERED: FUROSEMIDE 40 MG/4 ML VIAL ONE (03:00)
[2024-10-20] MEDS: CEFEPIME 1 GM in NA CHLORIDE 0.9% 100 ML IV ONE (06:20)
[2024-10-20] MEDS ORDERED: TRAMADOL HCL 50 MG TAB PO PRN (08:01)
[2024-10-20] MEDS: ENOXAPARIN 40 MG/0.4 ML SQ SCH (08:06)
[2024-10-20] MEDS: LIOTHYRONINE SOD 25 MCG TAB PO SCH (08:06)
[2024-10-20] MEDS: FINASTERIDE 5 MG TAB PO SCH (09:47)
[2024-10-20] MEDS: INSULIN REGULAR (HUMAN) 100 UNIT/ML SQ SCH (09:47)
[2024-10-20] MEDS: ALBUTEROL 2.5 MG/3 ML NEB SOL NEB PRN (10:14)
[2024-10-20] MEDS: ONDANSETRON 4 MG/2 ML VIAL IV PRN (10:57)
--- NOTE | 2024-10-20 15:12 | P.PN ---
Date of Service: 10/20/24 Subjective: Feels very weak Was having difficulty getting out of the wheelchair at home Discussed possibility of longterm facility the patient ROS: 10 point ROS as noted above, otherwise negative Physical exam GEN: Alert, oriented, NAD HEENT: Normal conjunctiva, sclera anicteric CV: Regular rate and rhythm, 1+ pitting edema lower extremity Pulm: Nonlabored respirations on room air ABD: Soft, nontender, nondistended MSK: No joint tenderness Integumentary: No rashes Neuro: Normal speech, normal affect Vitals reviewed Problem list Acute on chronic systolic congestive heart failure History of CAD Anemia of chronic disease CKD stage 3 Diabetes - IDDM Right foot wound HTN PROSTATE CA Plan Acute on chronic systolic CHF History of CAD -Cardiology consulted -Continue Lasix -Continue sotalol, Xarelto -Aspirin, statin daily -Trend troponin and monitor on telemetry - Denies chest pain Anemia of chronic disease CKD stage 3 -Nephrology consulted and following - Stable at this time, repeat chemistry in the morning Diabetes - IDDM -Accucheck with SSI Right foot wound -Wound care consulted -Santyl and dry gauze to foot wound daily HTN PROSTATE CA -Continue outpatient follow up DVT ppx xarelto Full code 72 hours Discharge Plan: Home Time Spent Managing Pts Care (In Minutes): 35
[2024-10-20] MEDS ORDERED: SOTALOL HCL 80 MG TAB PO SCH (18:00)
[2024-10-20] MEDS: TAMSULOSIN 0.4 MG SR CAP PO SCH (20:42)
[2024-10-20] MEDS: RIVAROXABAN 20 MG TABLET PO SCH (20:42)
--- NOTE | 2024-10-20 21:23 | CON ---
Date of Consultation: 10/20/2024 Reason For Consultation: Swelling of lower extremity and mild shortness of breath. History Of Present Illness: 79-year-old male with history of coronary artery disease, status post CA BG, peripheral vascular disease with the left [id number] amputation, type 2 diabetes, hypertensio n, presents with significant swelling of the lower extremity along with mild shortness of breath and orthopnea. Denies having any chest pain. No nausea or vomiting. No other complaints. Past Medical History: Coronary artery disease, hypertension, diabetes, chronic kidney disease, conge stive heart failure, peripheral vascular disease. Medications: Refer to reconciliation sheet for detailed list. Allergies: HYDROCODONE AND CODEINE. Past Surgical History: CABG and carotid stents. Social History: He does not smoke or drink. Does not use any drugs. Family History: No premature coronary artery disease or cancer. Review of Systems: All systems reviewed and they were negative except as mentioned in the HPI. Physical Examination: Vital Signs: Reviewed. Head and Neck: Pupils are equal, reactive to light. Intact eye movements. No cervical lymphadenopa thy. Neck is supple. Thyroid is not enlarged. Lungs: Clear to auscultation bilaterally. No rhonchi, wheezing, or crackles. No accessory muscle u se. Heart: Irregular. No extra sounds. Abdomen: Soft, nontender. Bowel sounds positive. No organomegaly. No masses or hernia. No rigidi ty or rebound. Extremities: No clubbing or cyanosis. Intact pulses, but there is edema on the right side. Neurologic: Alert, awake, oriented x3. No acute focal deficits appreciated. Investigations: Troponin is 255 and the BUN 37, creatinine is 1.80, is slightly higher than before. Assessment And Recommendations: 1. Edema of the lower extremity. Obtain venous Doppler to rule out any DVT and the patient is alread y on Xarelto, to continue. This definitely could be fluid retention and the patient is on Lasix. Ca refully monitor BUN, creatinine, and electrolytes. Seems like creatinine is gradually going up. Re commend to hold the dose of today's Lasix and repeat labs in the morning. 2. Acute on chronic renal failure. To monitor the diuresis carefully. I would definitely hold the d ose tonight and reassess tomorrow. 3. Atrial fibrillation. The patient has regular rhythm now, on sotalol and Xarelto. With the creati nine being elevated, sotalol cannot be used. Recommend to discontinue it and replace it with metopro lol 25 mg twice a day and continue Xarelto. 4. Acute on chronic renal failure. Recommend nephrology evaluation. SR/MODL Voice ID: [id number] Report ID: [id number]
[2024-10-21] MEDS ORDERED: BENZONATATE 100 MG CAP PO PRN (01:27)
[2024-10-21] MEDS: guaiFENesin 100 MG/5 ML UCUP PO PRN (02:02)
[2024-10-21 05:06] LABS: Absolute Lymphocytes (CBC) 1.1 K/uL (0.7-4.9); Hematocrit 24.8 % (39.6-49.0); Hemoglobin 8.1 g/dL (13.6-17.9); MCH 22.6 pg (27.0-35.0); MCHC 32.6 g/dL (32.0-36.0); MPV 6.9 fL (7.6-11.3); Nucleated RBC Absolute Count 0.0 (0-0); Nucleated Red Blood Cells % 0.3 % (0-0); RBC Red Blood Cell Count 3.57 M/uL (4.33-5.43); White Blood Count 7.90 thou/uL (4.3-10.9)
[2024-10-21 05:09] LABS: MCV 69.4 fL (80-100)
[2024-10-21 05:31] LABS: ALT/SGPT 21.0 U/L (16-61); AST/SGOT 49.0 U/L (15-37); Albumin 2.2 g/dL (3.4-5.0); Albumin/Globulin Ratio 0.6 (1.1-1.8); Alkaline Phosphatase 88.0 U/L (45-117); Anion Gap 9.3 mEq/L (5.0-15.0); BUN Blood Urea Nitrogen 41.0 mg/dL (7-18); Globulin 3.7 g/dL (2.3-3.5); Glucose Level 118.0 mg/dL (74-106); Potassium 4.3 mEq/L (3.5-5.1)
--- NOTE | 2024-10-21 06:36 | P.CNS ---
Date of Consult: 10/21/24 JEREMY CHEW called to patient's room. Arrived patient in asystole and chest compressions had been started. Patient had irregular and inefficient breathing and no spontaneous pulse. Patient was cyanotic. Patient intubated with 7.5 ET tube, single pass, cricoid pressure applied, confirmed with colorimetric change and breath sounds equal bilaterally with condensation in tube. Intubated using etomidate and succinylcholine. CPR continued and ROSC achieved. Care passed to hospitalist team with patient still unresponsive, intubated, has spontaneous pulse but tachycardic and irregular with frequent PVCs.
[2024-10-21] MEDS: MIDAZOLAM HCL 2 MG/2 ML INJ ONE (07:15)
[2024-10-21] MEDS: FENTANYL CITR 100 MCG/2 ML IV PRN (07:23)
--- NOTE | 2024-10-21 07:26 | RAD REPORT ---
EXAM: CT brain without contrast HISTORY: Confusion/alteration of consciousness COMPARISON: None TECHNIQUE: Multiple contiguous axial images were obtained and a CT of the brain without contrast.. Sagittal and coronal reconstruction performed. Automated exposure control, adjustment of the mA and/or kV according to patient size, and/or iterative reconstruction. Unless otherwise specified, incidental f indings do not require dedicated imaging follow-up FINDINGS: An intracranial bleed is not seen Ventricles are normal caliber No extra-axial fluid collection noted No significant hypodensity within the brain No fluid within the visualized sinuses or mastoids noted. IMPRESSION: No acute intracranial abnormality noted. If the patient continues to have symptoms to suggest an acute intracranial abnormality then MRI of th e brain would be recommended.
--- NOTE | 2024-10-21 07:27 | RAD REPORT ---
Procedure: Chest Single View HISTORY: Intubation COMPARISON: October 14, 2004 FINDINGS: Endotracheal tube has been inserted with its tip 2 cm above the top of the aortic arch Lungs appear grossly clear. Marked cardiomegaly. Post surgical changes involve the chest. A sternal wire is broken.
[2024-10-21] MEDS: AMIODARONE HCL 150 MG in D5W 100 ML IV SCH (07:33)
[2024-10-21] MEDS: FUROSEMIDE 40 MG/4 ML VIAL IV SCH (07:42)
[2024-10-21] MEDS: FAMOTIDINE 20 MG/2 ML VIAL IV SCH (07:43)
[2024-10-21 07:48] LABS: Arterial Blood Carboxyhemoglob 2.2 % (0.0-1.5); Blood Gas Oxyhemoglobin 97.8 % (94.0-97.0); Blood O2 Saturation 99.8 % (92.0-98.5)
[2024-10-21 07:49] LABS: Blood Gas Inspired Oxygen 100.0 %
[2024-10-21] MEDS ORDERED: AMIODARONE HCL 900 MG in Dextrose 5%-Water 482 ML IV SCH (08:00)
[2024-10-21] MEDS ORDERED: FENTANYL CITR 100 MCG/2 ML IV PRN (08:22)
[2024-10-21] MEDS ORDERED: LORazepam 2 MG/ML VIAL IV PRN (08:22)
[2024-10-21] MEDS: COLLAGENASE 30 GM OINTMENT TOP SCH (08:51)
[2024-10-21] MEDS: LORazepam 2 MG/ML VIAL IV PRN (08:54)
[2024-10-21] MEDS ORDERED: FAMOTIDINE 20 MG/2 ML VIAL IV SCH (09:00)
--- NOTE | 2024-10-21 09:24 | RAD REPORT ---
Exam:Abdomen 1 View (KUB) Clinical history: Nasogastric tube placement FINDINGS: Nasogastric tube has been placed with its tip near the junction of the gastric fundus and body
[2024-10-21] MEDS: MAGNESIUM SULFATE 1 gm IVPB 1 GM/100 ML BAG IV ONE (09:47)
[2024-10-21] MEDS: MIDAZOLAM HCL 2 MG/2 ML INJ IV PRN (09:48)
[2024-10-21] MEDS: ATROPINE SULFATE 1 MG/ML INJ ONE (11:06)
[2024-10-21] MEDS ORDERED: ETOMIDATE 20 MG/10 ML VIAL IV ONE (11:56)
--- NOTE | 2024-10-21 12:04 | RAD REPORT ---
EXAMINATION: US bilateral LOWER EXTREMITY VENOUS DOPPLER CLINICAL INDICATION: Leg edema TECHNIQUE: Sonographic evaluation of the veins of the lower extremity bilaterally formed.Grayscale, c olor and spectral analysis performed on all vessels COMPARISON: October 12, 2024. FINDINGS: The common femoral, superficial femoral, greater saphenous, popliteal and posterior tibial veins bila terally are compressible and demonstrate augmentation. Doppler demonstrates good flow. IMPRESSION: No evidence of deep venous thrombosis involving either lower extremity
[2024-10-21 12:21] LABS: Arterial Blood Carboxyhemoglob 1.4 % (0.0-1.5); Blood Gas Oxyhemoglobin 97.4 % (94.0-97.0); Blood O2 Saturation 99.1 % (92.0-98.5)
[2024-10-21 12:22] LABS: Blood Gas Inspired Oxygen 40.0 %
[2024-10-21 12:59] LABS: ALT/SGPT 64.0 U/L (16-61); AST/SGOT 137.0 U/L (15-37); Albumin 2.2 g/dL (3.4-5.0); Albumin/Globulin Ratio 0.6 (1.1-1.8); Alkaline Phosphatase 95.0 U/L (45-117); Anion Gap 12.3 mEq/L (5.0-15.0); BUN Blood Urea Nitrogen 43.0 mg/dL (7-18); Globulin 3.4 g/dL (2.3-3.5); Glucose Level 157.0 mg/dL (74-106); Magnesium 2.3 mg/dL (1.6-2.4); Potassium 4.3 mEq/L (3.5-5.1)
[2024-10-21 13:01] LABS: Troponin High Sensitivity 172.4 pg/mL (<58.9)
--- NOTE | 2024-10-21 14:16 | ECHO ---
HEIGHT: 6 ft 2 in WEIGHT: 226 lb 0 oz DATE OF STUDY: 10/21/[address]: Tomi Bangura NP 2-DIMENSIONAL: YES M.MODE: YES DOPPLER: YES COLOR FLOW: YES TDS: NO PORTABLE: YES DEFINITY: NO BUBBLE STUDY: NO DIAGNOSIS: CARDIAC ARREST CARDIAC HISTORY: CATHERIZATION: SURGERY: PROSTHETIC VALVE: PACEMAKER: MEASUREMENTS (cm) DIASTOLIC (NORMALS) SYSTOLIC (NORMALS) IVSd 1.2 (0.6-1.2) LA Diam 4.0 (1.9-4.0) LVEF 35-40% LVIDd 4.8 (3.5-5.7) LVIDs 3.9 (2.0-3.5) %FS 19% LVPWd 1.1 (0.6-1.2) Ao Diam 3.9 (2.0-3.7) 2 DIMENSIONAL ASSESSMENT: RIGHT ATRIUM: NORMAL LEFT ATRIUM: ENLARGED RIGHT VENTRICLE: NORMAL LEFT VENTRICLE: DEPRESSED EJECTION FRACTION TRICUSPID VALVE: MODERATE TRICUSPID REGURGITATION MITRAL VALVE: MILD MITRAL REGURGITATION PULMONIC VALVE: MILD PULMONARY REGURGITATION AORTIC VALVE: MILD AORTIC REGURGITATION PERICARDIAL EFFUSION: NONE AORTIC ROOT: NORMAL LEFT VENTRICULAR WALL MOTION: MODERATE GLOBAL DYSFUNCTION. DOPPLER/COLOR FLOW: SEE BELOW. COMMENTS: 1. MODERATELY DEPRESSED LEFT VENTRICULAR EJECTION FRACTION 35-40%. 2. MODERATE GLOBAL DYSFUNCTION. 3. LEFT ATRIAL ENLARGEMENT. 4. MILD MITRAL, PULMONIC AND AORTIC REGURGITATION. 5. MODERATE DIASTOLIC DYSFUNCTION. 6. MODERATE PULMONARY HYPERTENSION WITH RIGHT VENTRICULAR SYSTOLIC PRESSURE OF 55-60 mmHg. TECHNOLOGIST: AMEENA ROSARIO
--- NOTE | 2024-10-21 14:21 | P.PN ---
Date of Service: 10/21/24 Subjective: JEREMY CHEW called this morning Upon arrival gastrointestina for ongoing, it was reported that patient had asked for a breathing treatment and upon arrival back in the room he was cyanotic and unresponsive ACLS protocol was initiated, patient was given IV epinephrine ROSC was gained, patient was intubated by ED physician at bedside Head CT was obtained-no bleed or other acute findings Patient moved to ICU Telemetry strips reviewed by cardiology, no clear significant arrhythmia, possibly 4 beats of VT ROS: 10 point ROS as noted above, otherwise negative Physical exam GEN: Sedated, intubated, on ventilator HEENT: Normal conjunctiva, sclera anicteric CV: Atrial fibrillation, rate controlled, 1+ pitting edema lower extremity Pulm: Nonlabored respirations on room air ABD: Soft, nontender, nondistended MSK: No joint tenderness Integumentary: No rashes Neuro: Normal speech, normal affect Vitals reviewed Problem list Cardiac arrest status post ROSC Acute hypoxic respiratory failure Acute on chronic systolic congestive heart failure History of CAD Anemia of chronic disease CKD stage 3 Diabetes - IDDM Right foot wound HTN PROSTATE CA Plan Cardiac arrest status post ROSC Acute hypoxic respiratory failure Acute on chronic systolic congestive heart failure History of CAD - Continue heparin drip while patient is intubated/n.p.o. -Patient never complained of any chest pain, was complaining of shortness of breath - Troponin mildly elevated but was downtrending - Echocardiogram repeated with known EF of 35 to 40%, no significant changes - Cardiology consulted and following - No clear evidence of ischemia/arrhythmia around time of CODE BLUE - Wean ventilator as tolerated - Sotalol was discontinued with last dose a.m. of 10/20, patient was started on amiodarone shortly after the CODE BLUE for A-fib RVR Patient developed bradycardia while in ICU, amiodarone stopped, hold sotalol/amiodarone at this time Anemia of chronic disease CKD stage 3 -Nephrology consulted and following - Stable at this time, repeat chemistry in the morning Diabetes - IDDM -Accucheck with SSI Right foot wound -Wound care consulted -Santyl and dry gauze to foot wound daily HTN PROSTATE CA -Continue outpatient follow up DVT ppx xarelto Full code 72 hours Discharge Plan: Home Time Spent Managing Pts Care (In Minutes): 35
[2024-10-21] MEDS ORDERED: AMIODARONE HCL 150 MG/3 ML INJ IV ONE (15:14)
[2024-10-21] MEDS ORDERED: AMIODARONE IN DEXTROSE,ISO-OSM 360 MG/200 ML BAG IV ONE (15:14)
[2024-10-21] MEDS ORDERED: EPINEPHRINE 1 MG/ML VIAL IV ONE (15:14)
[2024-10-21] MEDS ORDERED: NA CHLORIDE 0.9% 100 ML IV ONE (15:14)
[2024-10-21] MEDS: HEPARIN/D5W 25,000 UNIT/500 ML BAG IV SCH (16:42)
[2024-10-21] MEDS ORDERED: ATROPINE SULFATE 1 MG/ML INJ IV PRN (17:00)
--- NOTE | 2024-10-21 17:38 | P.CNS ---
Date of Consult: 10/21/24 Reason for Consult: Respiratory failure Chief Complaint: Respiratory failure patient on a ventilator History of Present Illness: Patient is 79 years of age apparently was admitted with acute on chronic heart failure diminished ejection fraction developed cardiac arrest was intubated transferred to the ICU currently he is stable off vasopressors ventilating well minimally responsive patient has a mild microcytic anemia Allergies hydrocodone [From Vicodin] Allergy (Verified 10/14/24 20:09) Nausea/Vomiting codeine Adverse Reaction (Verified 10/14/24 20:09) Nausea/Vomiting hydrocodone bitartrate [From Vicodin] Adverse Reaction (Verified 10/14/24 20:09) Nausea/Vomiting Home Medications: Insulin Degludec [Tresiba Flextouch U-200] 40 units SQ BEDTIME 04/14/18 Tamsulosin HCl 0.4 mg PO BEDTIME 04/14/18 Sotalol HCl [Betapace*] 80 mg PO BID 6AM 6PM #60 tab 05/28/19 glipiZIDE [Glipizide ER] 10 mg PO BID 02/08/20 Dapagliflozin Propanediol [Farxiga] 5 mg PO DAILY 03/28/21 Losartan Potassium 25 mg PO DAILY 03/28/21 Rivaroxaban [Xarelto] 20 mg PO BEDTIME 03/28/21 Rosuvastatin Calcium [Crestor] 20 mg PO BEDTIME 03/28/21 Famotidine 20 mg PO DAILY 01/28/23 Finasteride 5 mg PO DAILY 01/28/23 Magnesium Oxide [Magnesium] 500 mg PO BID 01/28/23 Zinc Gluconate [Zinc] 30 mg PO DAILY 01/28/23 Benzonatate [Tessalon Perle*] 100 mg PO TID PRN cap 06/30/24 Liothyronine Sodium [Cytomel] 25 mcg PO DAILY 08/02/24 Guaifen W/Codeine Syrup [ROBITUSSIN A-C Syrup*] 10 ml PO Q12HP PRN #100 ml 08/05/24 levoFLOXacin [Levaquin*] 750 mg PO DAILY 40 Days #40 tab 08/10/24 Zinc Oxide [Zinc Oxide 20%*] 1 appl TOP DAILY tube 09/10/24 Furosemide [Lasix] 40 mg PO DAILY #30 tab 10/19/24 - Past Medical/Surgical History Diabetic: Yes -: DM II -: HTN -: CKD III (Dr. Márquez/ Dr. Aguilar) -: Systolic CHF -: CAD -: HLD -: Atrial fibrillation on chronic anticoagulation -: Enlarged Prostate with LUTS -: Prostate cancer -: PAD -: carotid stent -: CABG quintup2016 -: BKA left leg -: Prostate surgery -: bladder surgery -: skin graft Psychosocial/ Personal History: Patient lives at home with his family - Family History Father Medical History: Heart disease Mother Medical History: Lung disease Notes: COPD, leaking heart valve, emphysema - Social History Smoking Status: Unknown if ever smoked Alcohol use: No CD- Drugs: No Caffeine use: Yes Review of Systems is unable to be obtained Physical Examination Temp Pulse Resp BP Pulse Ox 97.0 F 63 18 107/65 100 10/21/24 16:00 10/21/24 17:00 10/21/24 17:00 10/21/24 17:00 10/21/24 17:00 General: Unresponsive Respiratory: Clear to auscultation bilaterally Cardiovascular: Edema Gastrointestinal: Normal bowel sounds, Soft and benign - Problems (1) Respiratory failure Current Visit: Yes Status: Acute Plan: Patient is 79 years of age admitted with heart failure exacerbation ended up in the ICU on a ventilator apparently had for some respiratory or a cardiac arrest he is currently hemodynamically stable oxygenation satisfactory chest is clear endotracheal tube satisfactory chronic renal insufficiency diminished ejection fraction elevated troponin patient has 4+ gram-negative bacilli in the urine culture waiting continue with antibiotic continue with anticoagulation patient is on minimal oxygen we will plan to wean off the ventilator tomorrow Echocardiogram MODERATELY DEPRESSED LEFT VENTRICULAR EJECTION FRACTION 35-40%. 2. MODERATE GLOBAL DYSFUNCTION. 3. LEFT ATRIAL ENLARGEMENT. 4. MILD MITRAL, PULMONIC AND AORTIC REGURGITATION. 5. MODERATE DIASTOLIC DYSFUNCTION. 6. MODERATE PULMONARY HYPERTENSION WITH RIGHT VENTRICULAR SYSTOLIC PRESSURE OF 55-60 mmHg. Urinalysis positive for infection resume antibiotics Qualifiers: Chronicity: unspecified
[2024-10-21] MEDS: CEFTRIAXONE 1,000 MG in NA CHLORIDE 0.9% 50 ML IVPB SCH (18:47)
--- NOTE | 2024-10-21 23:33 | CON ---
Date of Consultation: 10/21/2024 Chief Complaint: Elevated BUN and creatinine level. History Of Present Illness: The patient has history of chronic kidney disease, stage 3; cardiorenal syndrome. He was admitted because of acute on chronic heart failure and developed cardiac arrest and was intubated and transferred to ICU. Currently, he is off vasopressors and he has nonoliguric urin e output. Review of Systems: Unobtainable. The patient remains intubated. Past Medical History: Chronic kidney disease, stage 3; diabetes mellitus; hypertension; hypothyroidi sm; diabetes mellitus with renal manifestation; hyperlipidemia; systolic congestive heart failure; co ronary artery disease; atrial fibrillation, on chronic anticoagulation; enlarged prostate; prostate c ancer; PAD; carotid stents; CABG; 2017, BKA, left leg; prostate surgery; bladder surgery; skin graft. Family History: Father, heart disease. Mother; lung disease, COPD, cardiac valve disease, emphysema . Social History: Unknown if ever smoked. No alcohol. No drugs. Physical Examination: General: The patient is unresponsive. Respiratory: Clear to auscultation. Cardiovascular: Edema present. GI: Normal bowel sounds. Soft. Impression And Plan: 1. Respiratory failure. The patient remains intubated. He has history of heart failure exacerbation . He remains in ICU, off pressors. He had a cardiac arrest and was transferred to ICU. The patient was seen by Pulmonary Service and their plan is to wean him off ventilation. The patient has modera tely depressed left ventricular ejection fraction and moderate global dysfunction, left atrial enlarg ement. 2. The patient has moderate pulmonary hypertension and pulmonary Service is consulted. 3. Chronic kidney disease. Monitor electrolytes, renal panel, and urine output. The patient may bushra efit from diuretic for congestive heart failure. Continue to monitor potassium and magnesium and sup plement as needed. 4. Hypertension. Monitor blood pressure. Currently, the patient is off blood pressure medication be cause primarily he had hypotension and was on Levophed. 5. Diabetes mellitus. Continue insulin sliding scale. EB/MODL Voice ID: [id number] Report ID: [id number]
[2024-10-22 06:17] LABS: Absolute Lymphocytes (CBC) 0.6 K/uL (0.7-4.9); Hematocrit 27.7 % (39.6-49.0); Hemoglobin 9.0 g/dL (13.6-17.9); MCH 22.5 pg (27.0-35.0); MCHC 32.5 g/dL (32.0-36.0); MCV 69.2 fL (80-100); MPV 6.6 fL (7.6-11.3); Nucleated RBC Absolute Count 0.0 (0-0); Nucleated Red Blood Cells % 0.1 % (0-0); RBC Red Blood Cell Count 4.00 M/uL (4.33-5.43); White Blood Count 10.30 thou/uL (4.3-10.9)
[2024-10-22 06:34] LABS: Anion Gap 10.8 mEq/L (5.0-15.0); BUN Blood Urea Nitrogen 41.0 mg/dL (7-18); Glucose Level 147.0 mg/dL (74-106); Magnesium 2.2 mg/dL (1.6-2.4); Potassium 3.8 mEq/L (3.5-5.1)
[2024-10-22] MEDS: KCL 20 MEQ/100 mL IVPB 20 MEQ/100 ML BAG IV SCH (07:16)
[2024-10-22] MEDS: NA CHLORIDE 0.9% 250 ML ONE (07:16)
--- NOTE | 2024-10-22 08:54 | RAD REPORT ---
EXAMINATION: ONE VIEW CHEST XR CLINICAL INDICATION: eval tubes TECHNIQUE: Frontal chest projection is submitted. Examination is limited by patient positioning and t echnique. COMPARISON: 10/21/2024 FINDINGS: Moderately severe bilateral pulmonary opacities are present, greater than on comparison study, likely representing pulmonary edema or pneumonia. The heart is moderately enlarged with changes of prior CABG. Sternotomy wires present. Tip of the ET tube is at the level of the superior aortic arch. Ente derrick tube descends into the upper abdomen. IMPRESSION: [id number] worsening of pulmonary CHF/volume overload pattern.
[2024-10-22 12:02] LABS: ALT/SGPT 46.0 U/L (16-61); AST/SGOT 77.0 U/L (15-37); Albumin 1.9 g/dL (3.4-5.0); Albumin/Globulin Ratio 0.6 (1.1-1.8); Alkaline Phosphatase 91.0 U/L (45-117); Bilirubin Indirect, Calculated 0.4 mg/dL (0.2-0.8); Globulin 3.4 g/dL (2.3-3.5)
[2024-10-22] MEDS: ALBUMIN HUMAN 25% 12.5 GM, FUROSEMIDE 100 MG in NA CHLORIDE 0.9% 40 ML IV SCH (12:24)
--- NOTE | 2024-10-22 12:43 | PN ---
Date of Progress Note: 10/22/2024 Subjective: The patient was admitted with deconditioning, overvolume. The patient was started on di uresis. Apparently, patient was doing well. The patient had coded yesterday all of the sudden. The patient was intubated over the night, extubated. The code was called. The patient stabilized, did not receive any pressor, extubated. Physical Examination: Vital Signs: Blood pressure 98/53, pulse of 78. Chest: Crackles bilateral. Heart: S1, S2. Systolic murmur. Abdomen: Soft, nontender. Extremities: Left below-knee amputation. Right +1 edema. Neurologic: Alert. No focality. Moving 4 extremities. Laboratory Data: Chest x-ray: Cardiomegaly with congestion compared to chest x-ray upon presentatio n, looked to me slightly more congested. Sodium 138, potassium 3.8, bicarb 25, BUN 41, creatinine 1. 7, calcium 8.3. Phosphorus 3.3. WBC 10.3, hemoglobin of 9. Current Medications: The patient is on include: 1. Ceftriaxone. 2. Flomax. 3. Heparin. 4. Propofol. 5. Midazolam. 6. Finasteride. 7. Fentanyl. 8. Tramadol. Assessment And Plan: 1. Acute kidney injury on chronic kidney disease on the overvolume side. Blood pressure is still sof t. I am going to discontinue the Lasix IV push. We will switch the patient on Lasix drip 5 mg per h our. We will give him around 120 mg on 24 hour, which is higher than the current dosage that he is r eceiving. We will follow up the patient's I's and O's stenosis and we will monitor. 2. Hypertension. Currently, blood pressure on the lower side. We will utilize blood pressure for mo re diuresis. 3. Congestive heart failure with exacerbation as above. We will use Lasix drip with albumin to mobil ize third space. 4. Anasarca secondary to malnourished. We will use Lasix drip as above. Continue levothyroxine. 5. Cardiac arrest. Cardiology has evaluated the patient. Will follow up. Continue current treatmen tCarlos Eduardo CLINE/FRANCY Voice ID: [id number] Report ID: [id number]
--- NOTE | 2024-10-22 15:23 | P.PN ---
Date of Service: 10/22/24 Subjective: Extubated today, tolerating nasal cannula well Still drowsy ROS: 10 point ROS as noted above, otherwise negative Physical exam GEN: Awake, drowsy HEENT: Normal conjunctiva, sclera anicteric CV: Atrial fibrillation, rate controlled, 2+ pitting edema lower extremity Pulm: Nonlabored respirations on nasal cannula ABD: Soft, nontender, nondistended MSK: No joint tenderness Integumentary: No rashes Neuro: Normal speech, normal affect Vitals reviewed Problem list Cardiac arrest status post ROSC Acute hypoxic respiratory failure Acute on chronic systolic congestive heart failure History of CAD UTI Anemia of chronic disease CKD stage 3 Diabetes - IDDM Right foot wound HTN PROSTATE CA Plan Cardiac arrest status post ROSC Acute hypoxic respiratory failure Acute on chronic systolic congestive heart failure History of CAD -Extubated 10/22 -Tolerating nasal cannula -Started on Lasix drip -Patient never complained of any chest pain, was complaining of shortness of breath - Echocardiogram repeated with known EF of 35 to 40%, no significant changes - Cardiology consulted and following-doubts ischemia leading to cardiac arrest - No clear evidence of ischemia/arrhythmia around time of CODE BLUE - Sotalol was discontinued with last dose a.m. of 10/20, patient was started on amiodarone shortly after the CODE BLUE for A-fib RVR Patient developed bradycardia while in ICU, amiodarone stopped, hold sotalol/amiodarone at this time UTI Continue Rocephin Anemia of chronic disease CKD stage 3 -Nephrology consulted and following - Stable at this time, repeat chemistry in the morning - Continue Lasix drip for now Diabetes - IDDM -Accucheck with SSI Right foot wound -Wound care consulted -Santyl and dry gauze to foot wound daily HTN PROSTATE CA -Continue outpatient follow up DVT ppx heparin drip, likely transition to Xarelto once tolerating p.o. Full code 72 hours Discharge Plan: Home Time Spent Managing Pts Care (In Minutes): 35
[2024-10-22] MEDS ORDERED: FUROSEMIDE 40 MG/4 ML VIAL IV SCH (17:00)
[2024-10-23 06:59] LABS: Hematocrit 28.7 % (39.6-49.0); Hemoglobin 8.9 g/dL (13.6-17.9); MCH 21.6 pg (27.0-35.0); MCHC 31.1 g/dL (32.0-36.0); MCV 69.4 fL (80-100); MPV 6.9 fL (7.6-11.3); RBC Red Blood Cell Count 4.14 M/uL (4.33-5.43); White Blood Count 10.60 thou/uL (4.3-10.9)
[2024-10-23 07:04] LABS: ALT/SGPT 37.0 U/L (16-61); AST/SGOT 31.0 U/L (15-37); Albumin 2.1 g/dL (3.4-5.0); Albumin/Globulin Ratio 0.6 (1.1-1.8); Alkaline Phosphatase 87.0 U/L (45-117); Anion Gap 10.4 mEq/L (5.0-15.0); BUN Blood Urea Nitrogen 36.0 mg/dL (7-18); Globulin 3.4 g/dL (2.3-3.5); Glucose Level 226.0 mg/dL (74-106); Magnesium 1.8 mg/dL (1.6-2.4); Potassium 3.4 mEq/L (3.5-5.1)
--- NOTE | 2024-10-23 07:59 | P.PN ---
Date of Service: 10/23/24 Subjective: Extubated today, tolerating nasal cannula well Still drowsy and somewhat confused but following commands Answers questions appropriately Past swallow screen per nursing staff Off of Amio and sotalol, rate controlled A-fib Still on heparin drip No other acute events overnight ROS: 10 point ROS as noted above, otherwise negative Physical exam GEN: Awake, drowsy HEENT: Normal conjunctiva, sclera anicteric CV: Atrial fibrillation, rate controlled, 1+ pitting edema lower extremity Pulm: Nonlabored respirations on nasal cannula ABD: Soft, nontender, nondistended MSK: No joint tenderness Integumentary: No rashes Neuro: Normal speech, normal affect Vitals reviewed Problem list Cardiac arrest status post ROSC Acute hypoxic respiratory failure Acute on chronic systolic congestive heart failure History of CAD UTI Anemia of chronic disease CKD stage 3 Diabetes - IDDM Right foot wound HTN PROSTATE CA Plan Cardiac arrest status post ROSC Acute hypoxic respiratory failure Acute on chronic systolic congestive heart failure History of CAD -Extubated 10/22 -Tolerating nasal cannula -Started on Lasix drip 10/22 Good volume urine output Edema improved -Patient never complained of any chest pain, was complaining of shortness of breath - Echocardiogram repeated with known EF of 35 to 40%, no significant changes - Cardiology consulted and following-doubts ischemia leading to cardiac arrest - No clear evidence of ischemia/arrhythmia around time of CODE BLUE - Sotalol was discontinued with last dose a.m. of 10/20, patient was started on amiodarone shortly after the CODE BLUE for A-fib RVR Patient developed bradycardia while in ICU, amiodarone stopped, hold sotalol/amiodarone at this time UTI Continue Rocephin Anemia of chronic disease CKD stage 3 -Nephrology consulted and following - Stable at this time, repeat chemistry in the morning - Continue Lasix drip for now Diabetes - IDDM -Accucheck with SSI Right foot wound -Wound care consulted -Santyl and dry gauze to foot wound daily HTN PROSTATE CA -Continue outpatient follow up DVT ppx heparin drip, likely transition to Xarelto once tolerating p.o. Full code 72 hours Discharge Plan: Home Time Spent Managing Pts Care (In Minutes): 35
--- NOTE | 2024-10-23 08:55 | RAD REPORT ---
EXAMINATION: ONE VIEW CHEST XR CLINICAL INDICATION: Male, 79 years old.,eval tubes TECHNIQUE: Frontal chest projection is submitted. Examination is limited by patient positioning and t echnique. COMPARISON: 10/22/2024 FINDINGS: The lungs show central interstitial prominence and stable retrocardiac patchy opacification, although suboptimal inspiratory effort somewhat limits evaluation. No pneumothorax. Stable left costophrenic angle blunting, may suggest pleural thickening or a small effusion. Stable cardiomegaly. Mediastinal contours are unchanged with sequelae of CABG. IMPRESSION: Stable findings of central venous congestion or CHF.
--- NOTE | 2024-10-23 09:54 | P.PN ---
Date of Service: 10/23/24 Nephrology progress note The patient was admitted with deconditioning, overvolume. The patient was started on diuresis. Apparently, patient was doing well. The patient had coded yesterday all of the sudden. The patient was intubated over the night, extubated. The code was called. The patient stabilized, did not receive any pressor, extubated. October 22 Patient was started yesterday October 22 on Lasix drip tolerated very well had good urine output kidney function stays stable blood pressure stable Physical exam Temp Pulse Resp BP Pulse Ox 97.8 F 83 19 103/71 100 10/23/24 04:00 10/23/24 06:00 10/23/24 06:00 10/23/24 06:00 10/23/24 06:00 Vital Signs: Blood pressure 98/53, pulse of 78. Chest: Crackles bilateral. Heart: S1, S2. Systolic murmur. Abdomen: Soft, nontender. Extremities: Left below-knee amputation. Right +1 edema. Neurologic: Alert. No focality. Moving 4 extremities. Laboratory Tests 10/19/24 10/19/24 10/19/24 23:03 23:03 23:03 WBC 8.70 RBC 3.61 L Hgb 8.1 L Hct 25.0 L MCV 69.4 L MCH 22.4 L MCHC 32.4 RDW 22.4 H Plt Count 232 MPV 6.5 L Neutrophils % 82.7 H Lymphocytes % 6.4 L Monocytes % 9.5 Eosinophils % 1.1 Basophils % 0.3 Absolute Neutrophils 7.2 Absolute Lymphocytes 0.6 L Absolute Monocytes 0.8 Absolute Eosinophils 0.1 Absolute Basophils 0.0 Platelet Estimate Adeq Hypochromasia 1+ Anisocytosis 2+ Microcytosis 1+ Svetlana Cells 2+ Schistocytes 1+ Morphology Comment Noted PT 52.3 H INR 4.85 Sodium 135 L Potassium 4.5 Chloride 104 Carbon Dioxide 27 Anion Gap 8.5 BUN 37 H Creatinine 1.80 H Est GFR (CKD-EPI) 38 L Glucose 242 H Calcium 8.4 L Magnesium 2.1 Total Bilirubin 0.8 Direct Bilirubin 0.4 H Indirect Bilirubin 0.4 AST 19 ALT < 14 L Alkaline Phosphatase 79 Troponin I High Sens 39.1 NT-Pro-B Natriuret Pep 03796 H Serum Total Protein 6.3 L Albumin 2.2 L Globulin 4.1 H Albumin/Globulin Ratio 0.5 L Lipase 46 Urine Color Urine Clarity Urine pH Ur Specific [place] Glucose (UA)(Auto) Urine Ketones Urine Blood Urine Nitrite Urine Bilirubin Urine Urobilinogen Ur Leukocyte Esterase Urine RBC Urine WBC Ur Squamous Epith Cells U Non-Squamous Epi Cells Urine Bacteria Hyaline Casts Urine Mucus Urine Yeast (Budding) Urine Culture Reflexed Urine Total Protein Smear Scan Ok ABO/Rh Solid Phase Ab Screen 10/20/24 10/20/24 00:57 01:03 WBC RBC Hgb Hct MCV MCH MCHC RDW Plt Count MPV Neutrophils % Lymphocytes % Monocytes % Eosinophils % Basophils % Absolute Neutrophils Absolute Lymphocytes Absolute Monocytes Absolute Eosinophils Absolute Basophils Platelet Estimate Hypochromasia Anisocytosis Microcytosis [place] Cells Schistocytes Morphology Comment PT INR Sodium Potassium Chloride Carbon Dioxide Anion Gap BUN Creatinine Est GFR (CKD-EPI) Glucose Calcium Magnesium Total Bilirubin Direct Bilirubin Indirect Bilirubin AST ALT Alkaline Phosphatase Troponin I High Sens NT-Pro-B Natriuret Pep Serum Total Protein Albumin Globulin Albumin/Globulin Ratio Lipase Urine Color Yellow Urine Clarity Extremely turbid H Urine pH 5.0 Ur Specific [place] 1.016 Glucose (UA)(Auto) Negative Urine Ketones Negative Urine Blood 3+ H Urine Nitrite Negative Urine Bilirubin Negative Urine Urobilinogen Normal Ur Leukocyte Esterase 500 H Urine RBC >50 H Urine WBC >50 H Ur Squamous Epith Cells <5 U Non-Squamous Epi Cells <5 Urine Bacteria <20 Hyaline Casts 0-5 Urine Mucus Slight Urine Yeast (Budding) Few H Urine Culture Reflexed Reflexed Urine Total Protein Trace H Smear Scan ABO/Rh A NEGATIVE Solid Phase Ab Screen Negative Albuterol Sulfate (Albuterol 2.5 Mg/3 Ml Neb Stephanie) 2.5 mg NEB [id number] PRN PRN Reason: SHORTNESS OF BREATH Benzonatate (Benzonatate 100 Mg Cap) 100 mg PO TID PRN PRN Reason: COUGH Collagenase (Collagenase 30 Gm Ointment) 0 appl TOP DAILY [facility] Last Admin: 10/23/24 09:34 Dose: 2 appl Fentanyl Citrate (Fentanyl Citr 100 Mcg/2 Ml) 25 mcg IV Q4HP PRN PRN Reason: Pain scale 8-10 (Severe) Last Admin: 10/22/24 20:40 Dose: 25 mcg Finasteride (Finasteride 5 Mg Tab) 5 mg PO DAILY [facility] Last Admin: 10/23/24 09:34 Dose: 5 mg Guaifenesin (Guaifenesin 100 Mg/5 Ml Ucup) 100 mg PO QID PRN PRN Reason: COUGH Last Admin: 10/21/24 02:02 Dose: 100 mg Heparin Sodium (Porcine) (Heparin 1,000 Unit/Ml Vial) 0 unit IV PRN PRN PRN Reason: Heparin Re-Bolus Per Protocol Heparin Sodium/Dextrose (Heparin Drip 25,000 Units/5oo Ml Premix) 25,000 unit in 500 mls @ 0 mls/hr IV UD JEET; Protocol Last Admin: 10/22/24 21:32 Dose: 500 mls Ceftriaxone Sodium 1,000 mg/ (Sodium Chloride) 50 mls @ 100 mls/hr IVPB DAILY JEET; Protocol Last Admin: 10/23/24 09:34 Dose: 50 mls Albumin Human 12.5 gm/Furosemide 100 mg/ Sodium Chloride 100 mls @ 5 mls/hr IV Q20H JEET Last Admin: 10/23/24 09:33 Dose: 100 mls Insulin Human Regular (Insulin Regular (Human) 100 Unit/Ml) 0 unit SQ ACHS JEET; Protocol Last Admin: 10/23/24 09:33 Dose: 2 unit Liothyronine Sodium (Liothyronine Sod 25 Mcg Tab) 25 mcg PO ACB JEET Last Admin: 10/23/24 09:34 Dose: 25 mcg Ondansetron HCl (Ondansetron 4 Mg/2 Ml Vial) 4 mg IV Q6HP PRN PRN Reason: NAUSEA / VOMITING Last Admin: 10/20/24 10:57 Dose: 4 mg Tamsulosin HCl (Tamsulosin 0.4 Mg Sr Cap) 0.4 mg PO BEDTIME JEET Last Admin: 10/22/24 20:37 Dose: 0.4 mg Tramadol HCl (Tramadol Hcl 50 Mg Tab) 50 mg PO TID PRN PRN Reason: Pain scale 5-7 (Moderate) Assessment And Plan: 1. Acute kidney injury on chronic kidney disease on the overvolume side. Blood pressure is still soft. Continue Lasix drip 5 mg per hour. We will give him around 120 mg on 24 hour, which is higher than the current dosage that he is receiving. We will follow up the patient's I's and O's stenosis and we will monitor. 2. Hypertension. Currently, blood pressure on the lower side. We will utilize blood pressure for more diuresis. 3. Congestive heart failure with exacerbation as above. We will use Lasix drip with albumin to mobilize third space. 4. Anasarca secondary to malnourished. We will use Lasix drip as above. Continue levothyroxine. 5. Cardiac arrest. Cardiology has evaluated the patient. Will follow up. Continue current treatment. Time spent examining the patient [id number] reviewing data lab and the radiology placing order documentation in the note discussing the case with the steam press operator including hospitalist and nursing staff in ICU more than 55 minutes
[2024-10-23] MEDS: MAGNESIUM SULFATE 1 gm IVPB 1 GM/100 ML BAG IV ONE (10:07)
--- NOTE | 2024-10-23 10:21 | P.PN ---
Subjective Date of Service: 10/23/24 Chief Complaint: Low blood pressure Patient's condition is stable blood pressure is low he does eat at times patient is very edematous is on heparin drip oxygenation satisfactory patient is nonverbal however he is oriented Review of Systems is unable to be obtained Physical Examination - Vital Signs Temperature: 97.8 F Blood Pressure: 103/71 Pulse: 83 Respirations: 19 Pulse Ox (%): 100 - Physical Exam General: Delirious Respiratory: Clear to auscultation bilaterally Cardiovascular: Normal S1 S2 Gastrointestinal: Normal bowel sounds, Soft and benign - Studies Microbiology Data (last 24 hrs): 10/20/24 00:57 Clean Catch Urine [place] Count - Final >100,000 CFU/ML. 10/20/24 00:57 Clean Catch Urine - Final Escherichia Coli Assessment And Plan - Current Problems (Diagnosis) (1) Respiratory failure Current Visit: Yes Status: Acute Plan: Patient was extubated Qualifiers: Chronicity: unspecified (2) Congestive heart failure Current Visit: Yes Status: Acute Plan: Patient has mild microcytic anemia low blood pressure congestive heart failure patient is on heparin non-STEMI Lasix albumin drip oxygenation satisfactory chest x-ray shows possible edema echo shows depressed ejection fraction no change had some thiamine Qualifiers: Heart failure type: systolic
[2024-10-23] MEDS: THIAMINE 200 MG/2 ML INJ IVP SCH (11:00)
[2024-10-23 13:44] LABS: Anisocytosis 1+; Blood Morphology Comment NOTED (NOT SEEN); Hypochromasia 1+; Microcytosis 1+; Poikilocytosis 1+; White Blood Cell Scan OK (OK)
[2024-10-23 13:45] LABS: Burr Cells 1+
[2024-10-23 16:22] VITALS: BMI 26.6
[2024-10-24 05:25] LABS: Hematocrit 28.1 % (39.6-49.0); Hemoglobin 8.8 g/dL (13.6-17.9); MCH 21.7 pg (27.0-35.0); MCHC 31.3 g/dL (32.0-36.0); MCV 69.4 fL (80-100); MPV 7.0 fL (7.6-11.3); RBC Red Blood Cell Count 4.05 M/uL (4.33-5.43); White Blood Count 8.90 thou/uL (4.3-10.9)
[2024-10-24 05:52] LABS: ALT/SGPT 29.0 U/L (16-61); AST/SGOT 20.0 U/L (15-37); Albumin 2.3 g/dL (3.4-5.0); Albumin/Globulin Ratio 0.6 (1.1-1.8); Alkaline Phosphatase 78.0 U/L (45-117); Anion Gap 8.1 mEq/L (5.0-15.0); BUN Blood Urea Nitrogen 28.0 mg/dL (7-18); Globulin 3.6 g/dL (2.3-3.5); Glucose Level 267.0 mg/dL (74-106); Magnesium 1.6 mg/dL (1.6-2.4); Potassium 3.1 mEq/L (3.5-5.1)
[2024-10-24 05:58] LABS: Thyroid Stimulating Hormone 5.27 uIU/mL (0.358-3.740)
[2024-10-24] MEDS: MAGNESIUM SULFATE 1 gm IVPB 1 GM/100 ML BAG IV ONE (06:12)
[2024-10-24] MEDS: KCL 20 MEQ/100 mL IVPB 20 MEQ/100 ML BAG IV SCH (08:24)
--- NOTE | 2024-10-24 09:38 | P.PN ---
Date of Service: 10/24/24 Subjective: Mental status improved today Still some remaining confusion but mostly alert, oriented Reporting some mild left-sided chest pain with palpation likely from chest compressions he received No acute events overnight Edema improving, good urine output ROS: 10 point ROS as noted above, otherwise negative Physical exam GEN: Awake, drowsy HEENT: Normal conjunctiva, sclera anicteric CV: Atrial fibrillation, rate controlled, 1+ pitting edema lower extremity Pulm: Nonlabored respirations on nasal cannula ABD: Soft, nontender, nondistended MSK: No joint tenderness Integumentary: No rashes Neuro: Normal speech, normal affect Vitals reviewed Problem list Cardiac arrest status post ROSC Acute hypoxic respiratory failure Acute on chronic systolic congestive heart failure Atrial fibrillation on chronic anticoagulation with Xarelto History of CAD UTI Anemia of chronic disease CKD stage 3 Diabetes - IDDM Right foot wound HTN PROSTATE CA Plan Cardiac arrest status post ROSC Acute hypoxic respiratory failure Acute on chronic systolic congestive heart failure History of CAD -Extubated 10/22 -Tolerating nasal cannula -Started on Lasix drip 10/22 Good volume urine output Edema improved -Continue Lasix drip, can likely be downgraded later today -Patient never complained of any chest pain, was complaining of shortness of breath - Echocardiogram repeated with known EF of 35 to 40%, no significant changes - Cardiology consulted and following-doubts ischemia leading to cardiac arrest - No clear evidence of ischemia/arrhythmia around time of CODE BLUE - Sotalol was discontinued with last dose a.m. of 10/20, patient was started on amiodarone shortly after the CODE BLUE for A-fib RVR Patient developed bradycardia while in ICU, amiodarone stopped, hold sotalol/amiodarone at this time Atrial fibrillation on chronic anticoagulation with Xarelto Off of sotalol and amiodarone at this time, rate controlled Continue heparin drip until 1700, resume Xarelto daily at that time UTI Continue Rocephin Anemia of chronic disease CKD stage 3 -Nephrology consulted and following - Stable at this time, repeat chemistry in the morning - Continue Lasix drip for now Diabetes - IDDM -Accucheck with SSI Right foot wound -Wound care consulted -Santyl and dry gauze to foot wound daily HTN PROSTATE CA -Continue outpatient follow up DVT ppx heparin drip, likely transition to Xarelto once tolerating p.o. Full code 72 hours Discharge Plan: Home Time Spent Managing Pts Care (In Minutes): 35
[2024-10-24] MEDS: RIVAROXABAN 20 MG TABLET PO ONE (10:04)
--- NOTE | 2024-10-24 11:32 | P.PN ---
Subjective Date of Service: 10/24/24 Chief Complaint: Low blood pressure Subjective: No new changes Review of Systems 10-point ROS is otherwise unremarkable Physical Examination - Vital Signs Temperature: 98.0 F Blood Pressure: 114/69 Pulse: 94 Respirations: 16 Pulse Ox (%): 98 - Physical Exam General: Alert, In no apparent distress HEENT: Atraumatic, PERRLA, EOMI Neck: Supple, JVD not distended Respiratory: Clear to auscultation bilaterally, Normal air movement Cardiovascular: Regular rate/rhythm, Normal S1 S2 Gastrointestinal: Normal bowel sounds, No tenderness Musculoskeletal: No tenderness Integumentary: No rashes Neurological: Normal speech, Normal tone, Normal affect Lymphatics: No axilla or inguinal lymphadenopathy - Studies Medications List Reviewed: Yes Assessment And Plan - Current Problems (Diagnosis) (1) Acute on chronic combined systolic (congestive) and diastolic (congestive) heart failure Current Visit: No Status: Acute Plan: continue lasix drip at 5 mg/hr continue to monitor input and output and electrolytes. (2) Atrial fibrillation Current Visit: No Status: Acute Plan: patient is in AF, rate controlled resume Sotalol 80 mg po BID Continue Xarelto 20 mg daily continue to monitor on tele (3) S/P CABG (coronary artery bypass graft) Current Visit: No Status: Acute Plan: stable, continue to monitor
[2024-10-24] MEDS ORDERED: RIVAROXABAN 20 MG TABLET PO SCH (17:00)
[2024-10-24] MEDS: SOTALOL HCL 80 MG TAB PO SCH (17:41)
--- NOTE | 2024-10-25 02:51 | PN ---
Date of Progress Note: 10/24/2024 Chief Complaint: Severe respiratory failure, acute on chronic kidney injury. Subjective: The patient was admitted with deconditioning and severe shortness of breath. He was fou nd to have fluid overload and he required intubation. He had rapid response due to severe hypotensio n and arrhythmia. The patient was started on Lasix drip on October 22 for congestive heart failure. Blood pressure is more stable. The patient was transferred from ICU to telemetry unit. Review of Systems: Denies PND or orthopnea. Physical Examination: Lungs: Diminished breath sounds at bases. Heart: S1, S2. Abdomen: Soft. Extremities: Slight edema. Impression And Plan: 1. Acute kidney injury, fluid overload. Blood pressure is stabilizing. The patient is on Lasix drip . Continue current treatment. 2. Hypertension. Blood pressure on low side. Monitor blood pressure and hold blood pressure medicat ion. 3. Congestive heart failure with exacerbation. The patient is on Lasix and albumin drip. 4. Anasarca secondary to malnutrition and hypoalbuminemia. Continue Lasix. 5. Cardiac arrest. Cardiology has evaluated the patient. Continue current treatment and recommendat ion from Cardiology. EB/MODL Voice ID: [id number] Report ID: [id number]
[2024-10-25 07:06] LABS: Hematocrit 26.0 % (39.6-49.0); Hemoglobin 8.2 g/dL (13.6-17.9); MCH 22.0 pg (27.0-35.0); MCHC 31.6 g/dL (32.0-36.0); MCV 69.7 fL (80-100); MPV 7.3 fL (7.6-11.3); RBC Red Blood Cell Count 3.74 M/uL (4.33-5.43); White Blood Count 7.30 thou/uL (4.3-10.9)
[2024-10-25 07:22] LABS: ALT/SGPT 22.0 U/L (16-61); AST/SGOT 18.0 U/L (15-37); Albumin 2.3 g/dL (3.4-5.0); Albumin/Globulin Ratio 0.7 (1.1-1.8); Alkaline Phosphatase 74.0 U/L (45-117); Anion Gap 7.1 mEq/L (5.0-15.0); BUN Blood Urea Nitrogen 24.0 mg/dL (7-18); Globulin 3.3 g/dL (2.3-3.5); Glucose Level 341.0 mg/dL (74-106); Magnesium 1.6 mg/dL (1.6-2.4); Potassium 3.1 mEq/L (3.5-5.1)
[2024-10-25] MEDS: POTASSIUM 25 MEQ EFFERV TAB PO ONE ×2 (11:19→23:39)
--- NOTE | 2024-10-25 11:38 | P.PN ---
Subjective Date of Service: 10/25/24 Chief Complaint: Low blood pressure Subjective: No new changes Review of Systems 10-point ROS is otherwise unremarkable Physical Examination - Vital Signs Temperature: 98.2 F Blood Pressure: 100/61 Pulse: 82 Respirations: 16 Pulse Ox (%): 98 - Physical Exam General: Alert, In no apparent distress HEENT: Atraumatic, PERRLA, EOMI Neck: Supple, JVD not distended Respiratory: Clear to auscultation bilaterally, Normal air movement Cardiovascular: Regular rate/rhythm, Normal S1 S2 Gastrointestinal: Normal bowel sounds, No tenderness Musculoskeletal: No tenderness Integumentary: No rashes Neurological: Normal speech, Normal tone, Normal affect Lymphatics: No axilla or inguinal lymphadenopathy - Studies Medications List Reviewed: Yes Assessment And Plan - Current Problems (Diagnosis) (1) Acute on chronic combined systolic (congestive) and diastolic (congestive) heart failure Current Visit: No Status: Acute Plan: continue lasix drip at 5 mg/hr add Aldactone 25 mg daily continue to monitor input and output and electrolytes. (2) Atrial fibrillation Current Visit: No Status: Acute Plan: patient is in AF, rate controlled Continue Sotalol 80 mg po BID Continue Xarelto 20 mg daily continue to monitor on tele (3) S/P CABG (coronary artery bypass graft) Current Visit: No Status: Acute Plan: stable, continue to monitor
--- NOTE | 2024-10-25 12:06 | P.PN ---
Date of Service: 10/25/24 Nephrology progress note The patient was admitted with deconditioning, overvolume. The patient was started on diuresis. Apparently, patient was doing well. The patient had coded yesterday all of the sudden. The patient was intubated over the night, extubated. The code was called. The patient stabilized, did not receive any pressor, extubated. October 22 Patient was started yesterday October 22 on Lasix drip tolerated very well had good urine output kidney function stays stable blood pressure stable Physical exam Temp Pulse Resp BP Pulse Ox 98.2 F 82 16 100/61 98 10/25/24 11:38 10/25/24 11:38 10/25/24 11:38 10/25/24 11:38 10/25/24 11:38 Chest: Crackles bilateral. Heart: S1, S2. Systolic murmur. Abdomen: Soft, nontender. Extremities: Left below-knee amputation. Right +1 edema. Neurologic: Alert. No focality. Moving 4 extremities. Albuterol Sulfate (Albuterol 2.5 Mg/3 Ml Neb Stephanie) 2.5 mg NEB [id number] PRN PRN Reason: SHORTNESS OF BREATH Benzonatate (Benzonatate 100 Mg Cap) 100 mg PO TID PRN PRN Reason: COUGH Collagenase (Collagenase 30 Gm Ointment) 0 appl TOP DAILY [facility] Last Admin: 10/25/24 08:22 Dose: 1 appl Fentanyl Citrate (Fentanyl Citr 100 Mcg/2 Ml) 25 mcg IV Q4HP PRN PRN Reason: Pain scale 8-10 (Severe) Last Admin: 10/24/24 02:18 Dose: 25 mcg Finasteride (Finasteride 5 Mg Tab) 5 mg PO DAILY [facility] Last Admin: 10/25/24 08:22 Dose: 5 mg Guaifenesin (Guaifenesin 100 Mg/5 Ml Ucup) 100 mg PO QID PRN PRN Reason: COUGH Last Admin: 10/21/24 02:02 Dose: 100 mg Ceftriaxone Sodium 1,000 mg/ (Sodium Chloride) 50 mls @ 100 mls/hr IVPB DAILY [facility]; Protocol Last Admin: 10/25/24 08:22 Dose: 50 mls Albumin Human 12.5 gm/Furosemide 100 mg/ Sodium Chloride 100 mls @ 5 mls/hr IV Q20H [facility] Last Admin: 10/24/24 23:58 Dose: 100 mls Insulin Human Regular (Insulin Regular (Human) 100 Unit/Ml) 0 unit SQ ACHS [facility]; Protocol Last Admin: 10/25/24 08:48 Dose: 4 unit Liothyronine Sodium (Liothyronine Sod 25 Mcg Tab) 25 mcg PO ACB [facility] Last Admin: 10/25/24 08:22 Dose: 25 mcg Ondansetron HCl (Ondansetron 4 Mg/2 Ml Vial) 4 mg IV Q6HP PRN PRN Reason: NAUSEA / VOMITING Last Admin: 10/20/24 10:57 Dose: 4 mg Rivaroxaban (Rivaroxaban 20 Mg Tablet) 20 mg PO DAILY AT SUPPER [facility] Sotalol HCl (Sotalol Hcl 80 Mg Tab) 80 mg PO BID 6AM 6PM [facility] Last Admin: 10/25/24 06:04 Dose: 80 mg Tamsulosin HCl (Tamsulosin 0.4 Mg Sr Cap) 0.4 mg PO BEDTIME [facility] Last Admin: 10/24/24 21:22 Dose: 0.4 mg Thiamine HCl (Thiamine 200 Mg/2 Ml Inj) 200 mg IVP DAILY [facility] Last Admin: 10/25/24 08:22 Dose: 200 mg Tramadol HCl (Tramadol Hcl 50 Mg Tab) 50 mg PO TID PRN PRN Reason: Pain scale 5-7 (Moderate) Laboratory Last Values WBC 8.70 thou/uL (4.3-10.9) 10/19/24 23:03 RBC 3.61 M/uL (4.33-5.43) L 10/19/24 23:03 Hgb 8.1 g/dL (13.6-17.9) L 10/19/24 23:03 Hct 25.0 % (39.6-49.0) L 10/19/24 23:03 MCV 69.4 fL (80-100) L 10/19/24 23:03 MCH 22.4 pg (27.0-35.0) L 10/19/24 23:03 MCHC 32.4 g/dL (32.0-36.0) 10/19/24 23:03 RDW 22.4 % (12.1-15.2) H 10/19/24 23:03 Plt Count 232 thou/uL (152-406) 10/19/24 23:03 MPV 6.5 fL (7.6-11.3) L 10/19/24 23:03 Neutrophils % 82.7 % (41.7-73.7) H 10/19/24 23:03 Lymphocytes % 6.4 % (15.3-44.8) L 10/19/24 23:03 Monocytes % 9.5 % (3.3-12.3) 10/19/24 23:03 Eosinophils % 1.1 % (0-4.4) 10/19/24 23:03 Basophils % 0.3 % (0-1.3) 10/19/24 23:03 Absolute Neutrophils 7.2 K/uL (1.8-8.0) 10/19/24 23:03 Absolute Lymphocytes 0.6 K/uL (0.7-4.9) L 10/19/24 23:03 Absolute Monocytes 0.8 K/uL (0.1-1.3) 10/19/24 23:03 Absolute Eosinophils 0.1 K/uL (0-0.5) 10/19/24 23:03 Absolute Basophils 0.0 K/uL (0-0.5) 10/19/24 23:03 Platelet Estimate Adeq 10/19/24 23:03 Hypochromasia 1+ 10/19/24 23:03 Anisocytosis 2+ 10/19/24 23:03 Microcytosis 1+ 10/19/24 23:03 Svetlana Cells 2+ 10/19/24 23:03 Schistocytes 1+ 10/19/24 23:03 Morphology Comment Noted (NOT SEEN) 10/19/24 23:03 PT 52.3 SECONDS (10-13.0) H 10/19/24 23:03 INR 4.85 10/19/24 23:03 Sodium 135 mEq/L (136-145) L 10/19/24 23:03 Potassium 4.5 mEq/L (3.5-5.1) 10/19/24 23:03 Chloride 104 mEq/L (98-107) 10/19/24 23:03 Carbon Dioxide 27 mEq/L (21-32) 10/19/24 23:03 Anion Gap 8.5 mEq/L (5.0-15.0) 10/19/24 23:03 BUN 37 mg/dL (7-18) H 10/19/24 23:03 Creatinine 1.80 mg/dL (0.70-1.30) H 10/19/24 23:03 Est GFR (CKD-EPI) 38 ml/min (=/>90) L 10/19/24 23:03 Glucose 242 mg/dL (74-106) H 10/19/24 23:03 Calcium 8.4 mg/dL (8.5-10.1) L 10/19/24 23:03 Magnesium 2.1 mg/dL (1.6-2.4) 10/19/24 23:03 Total Bilirubin 0.8 mg/dL (0.2-1.0) 10/19/24 23:03 Direct Bilirubin 0.4 mg/dL (0-0.2) H 10/19/24 23:03 Indirect Bilirubin 0.4 mg/dL (0.2-0.8) 10/19/24 23:03 AST 19 U/L (15-37) 10/19/24 23:03 ALT < 14 U/L (16-61) L 10/19/24 23:03 Alkaline Phosphatase 79 U/L (45-117) 10/19/24 23:03 Troponin I High Sens 39.1 pg/mL (<58.9) 10/19/24 23:03 NT-Pro-B Natriuret Pep 44527 pg/mL (<450) H 10/19/24 23:03 Serum Total Protein 6.3 g/dL (6.4-8.2) L 10/19/24 23:03 Albumin 2.2 g/dL (3.4-5.0) L 10/19/24 23:03 Globulin 4.1 g/dL (2.3-3.5) H 10/19/24 23:03 Albumin/Globulin Ratio 0.5 (1.1-1.8) L 10/19/24 23:03 Lipase 46 U/L (13-75) 10/19/24 23:03 Urine Color Yellow (Yellow) 10/20/24 00:57 Urine Clarity Extremely turbid (Clear) H 10/20/24 00:57 Urine pH 5.0 (5.0-7.0) 10/20/24 00:57 Ur Specific [place] 1.016 (1.005-1.030) 10/20/24 00:57 Glucose (UA)(Auto) Negative (Negative) 10/20/24 00:57 Urine Ketones Negative (Negative) 10/20/24 00:57 Urine Blood 3+ (Negative) H 10/20/24 00:57 Urine Nitrite Negative (Negative) 10/20/24 00:57 Urine Bilirubin Negative (Negative) 10/20/24 00:57 Urine Urobilinogen Normal (Normal) 10/20/24 00:57 Ur Leukocyte Esterase 500 Elsa/uL (Negative) H 10/20/24 00:57 Urine RBC >50 /HPF (None Seen) H 10/20/24 00:57 Urine WBC >50 /HPF (<5) H 10/20/24 00:57 Ur Squamous Epith Cells <5 /HPF (None Seen) 10/20/24 00:57 U Non-Squamous Epi Cells <5 /HPF (None Seen) 10/20/24 00:57 Urine Bacteria <20 /HPF (<20) 10/20/24 00:57 Hyaline Casts 0-5 /LPF (None Seen) 10/20/24 00:57 Urine Mucus Slight /HPF (None Seen) 10/20/24 00:57 Urine Yeast (Budding) Few /HPF (None Seen) H 10/20/24 00:57 Urine Culture Reflexed Reflexed 10/20/24 00:57 Urine Total Protein Trace (Negative) H 10/20/24 00:57 Smear Scan Ok (OK) 10/19/24 23:03 ABO/Rh A NEGATIVE 10/20/24 01:03 Solid Phase Ab Screen Negative 10/20/24 01:03 Assessment And Plan: 1. Acute kidney injury on chronic kidney disease on the overvolume side. Blood pressure is still soft. Continue Lasix drip 5 mg per hour. We will give him around 120 mg on 24 hour, which is higher than the current dosage that he is receiving. Will consider switching to IV push by tomorrow e will follow up the patient's I's and O's stenosis and we will monitor. 2. Hypertension. Currently, blood pressure on the lower side. We will utilize blood pressure for more diuresis. 3. Congestive heart failure with exacerbation as above. We will use Lasix drip with albumin to mobilize third space. 4. Anasarca secondary to malnourished. We will use Lasix drip as above. Continue levothyroxine. 5. Cardiac arrest. Cardiology has evaluated the patient. Will follow up. Continue current treatment. Time spent examining the patient [id number] reviewing data lab and the radiology placing order documentation in the note discussing the case with the boarder steam including hospitalist and nursing staff in ICU more than 55 minutes
[2024-10-25] MEDS: RIVAROXABAN 20 MG TABLET PO SCH (15:52)
--- NOTE | 2024-10-25 17:09 | P.PN ---
Date of Service: 10/25/24 Subjective: Lethargic on morning rounds Continues with good urine output ROS: 10 point ROS as noted above, otherwise negative Physical exam GEN: Awake, oriented x2, Drowsy HEENT: Normal conjunctiva CV: Afb with rate controlled, 1+ pitting edema lower extremity Pulm: Nonlabored respirations on nasal cannula ABD: Soft and benign on palpation MSK: No joint tenderness Integumentary: No rashes Neuro: Normal speech, normal affect Vitals reviewed Problem list Cardiac arrest status post ROSC Acute hypoxic respiratory failure Acute on chronic systolic congestive heart failure Atrial fibrillation on chronic anticoagulation with Xarelto History of CAD UTI Anemia of chronic disease CKD stage 3 Diabetes - IDDM Right foot wound HTN PROSTATE CA Plan Cardiac arrest status post ROSC Acute hypoxic respiratory failure Acute on chronic systolic congestive heart failure History of CAD -Extubated 10/22 -Tolerating nasal cannula -Started on Lasix drip 10/22 Good volume urine output Edema improved -Continue albumin Lasix drip -Patient never complained of any chest pain, was complaining of shortness of breath - Echocardiogram repeated with known EF of 35 to 40%, no significant changes - Cardiology consulted and following-doubts ischemia leading to cardiac arrest - No clear evidence of ischemia/arrhythmia around time of CODE BLUE - Sotalol was discontinued with last dose a.m. of 10/20, patient was started on amiodarone shortly after the CODE BLUE for A-fib RVR Patient developed bradycardia while in ICU, amiodarone stopped, hold sotalol/amiodarone at this time Atrial fibrillation on chronic anticoagulation with Xarelto Off of sotalol and amiodarone at this time, rate controlled Continue Xarelto daily UTI Continue Rocephin Anemia of chronic disease CKD stage 3 -Nephrology consulted and following - Stable at this time, repeat chemistry in the morning - Continue Lasix drip for now Diabetes - IDDM -Accucheck with SSI Right foot wound -Wound care consulted -Santyl and dry gauze to foot wound daily HTN PROSTATE CA -Continue outpatient follow up DVT ppx Xarelto Full code 72 hours Discharge Plan: Inpatient rehab facility Time Spent Managing Pts Care (In Minutes): 40
[2024-10-25] MEDS: ALBUTEROL 2.5 MG/3 ML NEB SOL NEB PRN (20:55)
[2024-10-25] MEDS: GLUCERNA SHAKE 237 ML CAN PO SCH (22:36)
[2024-10-26 06:27] LABS: Hematocrit 26.5 % (39.6-49.0); Hemoglobin 8.6 g/dL (13.6-17.9); MCH 22.7 pg (27.0-35.0); MCHC 32.5 g/dL (32.0-36.0); MCV 69.8 fL (80-100); MPV 7.1 fL (7.6-11.3); RBC Red Blood Cell Count 3.80 M/uL (4.33-5.43); White Blood Count 7.00 thou/uL (4.3-10.9)
[2024-10-26 06:52] LABS: ALT/SGPT 19.0 U/L (16-61); AST/SGOT 16.0 U/L (15-37); Albumin 2.4 g/dL (3.4-5.0); Albumin/Globulin Ratio 0.7 (1.1-1.8); Alkaline Phosphatase 69.0 U/L (45-117); Anion Gap 7.5 mEq/L (5.0-15.0); BUN Blood Urea Nitrogen 22.0 mg/dL (7-18); Globulin 3.5 g/dL (2.3-3.5); Glucose Level 291.0 mg/dL (74-106); Magnesium 1.4 mg/dL (1.6-2.4); Potassium 3.5 mEq/L (3.5-5.1)
[2024-10-26] MEDS: Magnesium Sulfate 2gm IVPB 2 G/50 ML BAG IV ONE ×2 (07:27→08:56)
[2024-10-26] MEDS: POTASSIUM CL SA 10 MEQ TAB PO ONE (08:54)
--- NOTE | 2024-10-26 10:28 | P.PN ---
Date of Service: 10/26/24 Nephrology progress note The patient was admitted with deconditioning, overvolume. The patient was started on diuresis. Apparently, patient was doing well. The patient had coded yesterday all of the sudden. The patient was intubated over the night, extubated. The code was called. The patient stabilized, did not receive any pressor, extubated. October 22 Patient was started yesterday October 22 on Lasix drip tolerated very well had good urine output kidney function stays stable blood pressure stable Physical exam Temp Pulse Resp BP Pulse Ox 98.0 F 91 H 16 96/58 L 97 10/26/24 08:00 10/26/24 08:00 10/26/24 08:00 10/26/24 08:00 10/26/24 08:00 Chest: Crackles bilateral. Heart: S1, S2. Systolic murmur. Abdomen: Soft, nontender. Extremities: Left below-knee amputation. Right +1 edema. Neurologic: Alert. No focality. Moving 4 extremities. Laboratory Last Values WBC 8.70 thou/uL (4.3-10.9) 10/19/24 23:03 RBC 3.61 M/uL (4.33-5.43) L 10/19/24 23:03 Hgb 8.1 g/dL (13.6-17.9) L 10/19/24 23:03 Hct 25.0 % (39.6-49.0) L 10/19/24 23:03 MCV 69.4 fL (80-100) L 10/19/24 23:03 MCH 22.4 pg (27.0-35.0) L 10/19/24 23:03 MCHC 32.4 g/dL (32.0-36.0) 10/19/24 23:03 RDW 22.4 % (12.1-15.2) H 10/19/24 23:03 Plt Count 232 thou/uL (152-406) 10/19/24 23:03 MPV 6.5 fL (7.6-11.3) L 10/19/24 23:03 Neutrophils % 82.7 % (41.7-73.7) H 10/19/24 23:03 Lymphocytes % 6.4 % (15.3-44.8) L 10/19/24 23:03 Monocytes % 9.5 % (3.3-12.3) 10/19/24 23:03 Eosinophils % 1.1 % (0-4.4) 10/19/24 23:03 Basophils % 0.3 % (0-1.3) 10/19/24 23:03 Absolute Neutrophils 7.2 K/uL (1.8-8.0) 10/19/24 23:03 Absolute Lymphocytes 0.6 K/uL (0.7-4.9) L 10/19/24 23:03 Absolute Monocytes 0.8 K/uL (0.1-1.3) 10/19/24 23:03 Absolute Eosinophils 0.1 K/uL (0-0.5) 10/19/24 23:03 Absolute Basophils 0.0 K/uL (0-0.5) 10/19/24 23:03 Platelet Estimate Adeq 10/19/24 23:03 Hypochromasia 1+ 10/19/24 23:03 Anisocytosis 2+ 10/19/24 23:03 Microcytosis 1+ 10/19/24 23:03 [place] Cells 2+ 10/19/24 23:03 Schistocytes 1+ 10/19/24 23:03 Morphology Comment Noted (NOT SEEN) 10/19/24 23:03 PT 52.3 SECONDS (10-13.0) H 10/19/24 23:03 INR 4.85 10/19/24 23:03 Sodium 135 mEq/L (136-145) L 10/19/24 23:03 Potassium 4.5 mEq/L (3.5-5.1) 10/19/24 23:03 Chloride 104 mEq/L (98-107) 10/19/24 23:03 Carbon Dioxide 27 mEq/L (21-32) 10/19/24 23:03 Anion Gap 8.5 mEq/L (5.0-15.0) 10/19/24 23:03 BUN 37 mg/dL (7-18) H 10/19/24 23:03 Creatinine 1.80 mg/dL (0.70-1.30) H 10/19/24 23:03 Est GFR (CKD-EPI) 38 ml/min (=/>90) L 10/19/24 23:03 Glucose 242 mg/dL (74-106) H 10/19/24 23:03 Calcium 8.4 mg/dL (8.5-10.1) L 10/19/24 23:03 Magnesium 2.1 mg/dL (1.6-2.4) 10/19/24 23:03 Total Bilirubin 0.8 mg/dL (0.2-1.0) 10/19/24 23:03 Direct Bilirubin 0.4 mg/dL (0-0.2) H 10/19/24 23:03 Indirect Bilirubin 0.4 mg/dL (0.2-0.8) 10/19/24 23:03 AST 19 U/L (15-37) 10/19/24 23:03 ALT < 14 U/L (16-61) L 10/19/24 23:03 Alkaline Phosphatase 79 U/L (45-117) 10/19/24 23:03 Troponin I High Sens 39.1 pg/mL (<58.9) 10/19/24 23:03 NT-Pro-B Natriuret Pep 44697 pg/mL (<450) H 10/19/24 23:03 Serum Total Protein 6.3 g/dL (6.4-8.2) L 10/19/24 23:03 Albumin 2.2 g/dL (3.4-5.0) L 10/19/24 23:03 Globulin 4.1 g/dL (2.3-3.5) H 10/19/24 23:03 Albumin/Globulin Ratio 0.5 (1.1-1.8) L 10/19/24 23:03 Lipase 46 U/L (13-75) 10/19/24 23:03 Urine Color Yellow (Yellow) 10/20/24 00:57 Urine Clarity Extremely turbid (Clear) H 10/20/24 00:57 Urine pH 5.0 (5.0-7.0) 10/20/24 00:57 Ur Specific [place] 1.016 (1.005-1.030) 10/20/24 00:57 Glucose (UA)(Auto) Negative (Negative) 10/20/24 00:57 Urine Ketones Negative (Negative) 10/20/24 00:57 Urine Blood 3+ (Negative) H 10/20/24 00:57 Urine Nitrite Negative (Negative) 10/20/24 00:57 Urine Bilirubin Negative (Negative) 10/20/24 00:57 Urine Urobilinogen Normal (Normal) 10/20/24 00:57 Ur Leukocyte Esterase 500 Elsa/uL (Negative) H 10/20/24 00:57 Urine RBC >50 /HPF (None Seen) H 10/20/24 00:57 Urine WBC >50 /HPF (<5) H 10/20/24 00:57 Ur Squamous Epith Cells <5 /HPF (None Seen) 10/20/24 00:57 U Non-Squamous Epi Cells <5 /HPF (None Seen) 10/20/24 00:57 Urine Bacteria <20 /HPF (<20) 10/20/24 00:57 Hyaline Casts 0-5 /LPF (None Seen) 10/20/24 00:57 Urine Mucus Slight /HPF (None Seen) 10/20/24 00:57 Urine Yeast (Budding) Few /HPF (None Seen) H 10/20/24 00:57 Urine Culture Reflexed Reflexed 10/20/24 00:57 Urine Total Protein Trace (Negative) H 10/20/24 00:57 Smear Scan Ok (OK) 10/19/24 23:03 ABO/Rh A NEGATIVE 10/20/24 01:03 Solid Phase Ab Screen Negative 10/20/24 01:03 Albuterol Sulfate (Albuterol 2.5 Mg/3 Ml Neb Stephanie) 2.5 mg NEB [id number] PRN PRN Reason: SHORTNESS OF BREATH Last Admin: 10/25/24 20:55 Dose: 2.5 mg Benzonatate (Benzonatate 100 Mg Cap) 100 mg PO TID PRN PRN Reason: COUGH Collagenase (Collagenase 30 Gm Ointment) 0 appl TOP DAILY [facility] Last Admin: 10/25/24 08:22 Dose: 1 appl Enteral Nutritional Formula (Glucerna Shake 237 Ml Can) 237 ml PO BID [facility] Last Admin: 10/26/24 08:55 Dose: 237 ml Fentanyl Citrate (Fentanyl Citr 100 Mcg/2 Ml) 25 mcg IV Q4HP PRN PRN Reason: Pain scale 8-10 (Severe) Last Admin: 10/24/24 02:18 Dose: 25 mcg Finasteride (Finasteride 5 Mg Tab) 5 mg PO DAILY [facility] Last Admin: 10/26/24 08:54 Dose: 5 mg Guaifenesin (Guaifenesin 100 Mg/5 Ml Ucup) 100 mg PO QID PRN PRN Reason: COUGH Last Admin: 10/25/24 23:13 Dose: 100 mg Ceftriaxone Sodium 1,000 mg/ (Sodium Chloride) 50 mls @ 100 mls/hr IVPB DAILY [facility]; Protocol Last Admin: 10/26/24 09:57 Dose: 50 mls Albumin Human 12.5 gm/Furosemide 100 mg/ Sodium Chloride 100 mls @ 5 mls/hr IV Q20H [facility] Last Admin: 10/25/24 19:38 Dose: 100 mls Insulin Human Regular (Insulin Regular (Human) 100 Unit/Ml) 0 unit SQ ACHS [facility]; Protocol Last Admin: 10/26/24 08:53 Dose: 4 unit Liothyronine Sodium (Liothyronine Sod 25 Mcg Tab) 25 mcg PO ACB [facility] Last Admin: 10/26/24 08:55 Dose: 25 mcg Ondansetron HCl (Ondansetron 4 Mg/2 Ml Vial) 4 mg IV Q6HP PRN PRN Reason: NAUSEA / VOMITING Last Admin: 10/26/24 08:46 Dose: 4 mg Rivaroxaban (Rivaroxaban 20 Mg Tablet) 20 mg PO DAILY AT SUPPER [facility] Last Admin: 10/25/24 15:52 Dose: 20 mg Sotalol HCl (Sotalol Hcl 80 Mg Tab) 80 mg PO BID 6AM 6PM [facility] Last Admin: 10/26/24 08:37 Dose: Not Given Tamsulosin HCl (Tamsulosin 0.4 Mg Sr Cap) 0.4 mg PO BEDTIME [facility] Last Admin: 10/25/24 21:56 Dose: 0.4 mg Thiamine HCl (Thiamine 200 Mg/2 Ml Inj) 200 mg IVP DAILY [facility] Last Admin: 10/26/24 08:50 Dose: 200 mg Assessment And Plan: 1. Acute kidney injury on chronic kidney disease on the overvolume side. Blood pressure is still soft. DC Lasix drip started on oral will follow up the patient's I's and O's stenosis and we will monitor. 2. Hypertension. Currently, blood pressure on the lower side. We will utilize blood pressure for more diuresis. 3. Congestive heart failure with exacerbation as above. We will use Lasix drip with albumin to mobilize third space. 4. Anasarca secondary to malnourished. We will use Lasix drip as above. Continue levothyroxine. 5. Cardiac arrest. Cardiology has evaluated the patient. Will follow up. Continue current treatment. Time spent examining the patient [id number] reviewing data lab and the radiology placing order documentation in the note discussing the case with the engineer steam including hospitalist and nursing staff in ICU more than 55 minutes
--- NOTE | 2024-10-26 10:45 | P.PN ---
Subjective Date of Service: 10/26/24 Chief Complaint: Low blood pressure Subjective: No new changes, No C/O voiced, Tolerating diet, Ambulating, Improving Review of Systems 10-point ROS is otherwise unremarkable Physical Examination - Vital Signs Temperature: 98.0 F Blood Pressure: 96/58 Pulse: 91 Respirations: 16 Pulse Ox (%): 97 - Physical Exam General: Alert, In no apparent distress HEENT: Atraumatic, PERRLA, EOMI Neck: Supple, JVD not distended Respiratory: Clear to auscultation bilaterally, Normal air movement Cardiovascular: Regular rate/rhythm, Normal S1 S2 Gastrointestinal: Normal bowel sounds, No tenderness Musculoskeletal: No tenderness Integumentary: No rashes Neurological: Normal speech, Normal tone, Normal affect Lymphatics: No axilla or inguinal lymphadenopathy - Studies Medications List Reviewed: Yes Assessment And Plan - Current Problems (Diagnosis) (1) Acute on chronic combined systolic (congestive) and diastolic (congestive) heart failure Current Visit: No Status: Acute Plan: D/C Lasix drip swithc to lasix 40 mg po BID add Aldactone 25 mg daily continue to monitor input and output and electrolytes. (2) Atrial fibrillation Current Visit: No Status: Acute Plan: patient is in AF, rate controlled Continue Sotalol 80 mg po BID Continue Xarelto 20 mg daily continue to monitor on tele (3) S/P CABG (coronary artery bypass graft) Current Visit: No Status: Acute Plan: stable, continue to monitor
--- NOTE | 2024-10-26 15:59 | P.PN ---
Date of Service: 10/26/24 Subjective: Awake eating breakfast, good communication. Plan for IRF at discharge ROS: 10 point ROS as noted above, otherwise negative Physical exam GEN: Awake, alert, and oriented x3, NAD HEENT: Normal conjunctiva CV: Afb with mild tachycardia, 1+ pitting edema lower extremity Pulm: Symmetrical chest wall movement, on nasal cannula ABD: Soft and benign on palpation MSK: No joint tenderness, 1+ edema Integumentary: No rashes Neuro: Normal speech, normal affect Vitals reviewed Problem list Cardiac arrest status post ROSC Acute hypoxic respiratory failure Acute on chronic systolic congestive heart failure Atrial fibrillation on chronic anticoagulation with Xarelto History of CAD UTI Anemia of chronic disease CKD stage 3 Diabetes - IDDM Right foot wound HTN PROSTATE CA Plan Cardiac arrest status post ROSC Acute hypoxic respiratory failure Acute on chronic systolic congestive heart failure History of CAD -Extubated 10/22 -Tolerating nasal cannula -Started on Lasix drip 10/22 Good volume urine output Edema improved -Stopped albumin Lasix drip, Lasix 40 mg BID -Add aldactone per cardiology -Patient never complained of any chest pain, was complaining of shortness of breath - Echocardiogram repeated with known EF of 35 to 40%, no significant changes - Cardiology consulted and following-doubts ischemia leading to cardiac arrest - No clear evidence of ischemia/arrhythmia around time of CODE BLUE - Sotalol was discontinued with last dose a.m. of 10/20, patient was started on amiodarone shortly after the CODE BLUE for A-fib RVR Patient developed bradycardia while in ICU, amiodarone stopped, hold sotalol/amiodarone at this time Atrial fibrillation on chronic anticoagulation with Xarelto restarted sotalol, rate controlled Continue Xarelto daily UTI Continue Rocephin Anemia of chronic disease CKD stage 3 -Nephrology consulted and following - Stable at this time, repeat chemistry in the morning - Lasix 40 mg BID Diabetes - IDDM -Accucheck with SSI Right foot wound -Wound care consulted -Santyl and dry gauze to foot wound daily HTN PROSTATE CA -Continue outpatient follow up DVT ppx Xarelto Full code 72 hours Discharge Plan: Inpatient rehab facility Time Spent Managing Pts Care (In Minutes): 36
[2024-10-26] MEDS: FUROSEMIDE 40 MG TABLET PO SCH (16:38)
[2024-10-26] MEDS: MIDODRINE HCL 5 MG TABLET PO ONE (16:48)
[2024-10-26] MEDS: MIDODRINE HCL 5 MG TABLET PO SCH (20:20)
[2024-10-27] MEDS: ALBUMIN HUMAN 25% 100 ML IV ONE (06:09)
[2024-10-27 06:40] LABS: Hematocrit 25.9 % (39.6-49.0); Hemoglobin 8.3 g/dL (13.6-17.9); MCH 22.6 pg (27.0-35.0); MCHC 32.0 g/dL (32.0-36.0); MCV 70.5 fL (80-100); MPV 8.1 fL (7.6-11.3); RBC Red Blood Cell Count 3.67 M/uL (4.33-5.43); White Blood Count 5.70 thou/uL (4.3-10.9)
[2024-10-27 07:04] LABS: ALT/SGPT 17.0 U/L (16-61); AST/SGOT 13.0 U/L (15-37); Albumin 2.4 g/dL (3.4-5.0); Albumin/Globulin Ratio 0.7 (1.1-1.8); Alkaline Phosphatase 68.0 U/L (45-117); Anion Gap 7.6 mEq/L (5.0-15.0); BUN Blood Urea Nitrogen 23.0 mg/dL (7-18); Globulin 3.5 g/dL (2.3-3.5); Glucose Level 373.0 mg/dL (74-106); Magnesium 1.8 mg/dL (1.6-2.4); Potassium 3.6 mEq/L (3.5-5.1)
[2024-10-27] MEDS: SPIRONOLACTONE 25 MG TABLET PO SCH (08:59)
[2024-10-27] MEDS: POTASSIUM CL SA 10 MEQ TAB PO ONE (12:23)
[2024-10-27] MEDS: MAGNESIUM SULFATE 1 gm IVPB 1 GM/100 ML BAG IV ONE (12:24)
--- NOTE | 2024-10-27 12:43 | P.PN ---
Subjective Date of Service: 10/27/24 Chief Complaint: Low blood pressure Subjective: No new changes Review of Systems 10-point ROS is otherwise unremarkable Physical Examination - Vital Signs Temperature: 98.4 F Blood Pressure: 80/55 Pulse: 78 Respirations: 18 Pulse Ox (%): 95 - Physical Exam General: Alert, In no apparent distress HEENT: Atraumatic, PERRLA, EOMI Neck: Supple, JVD not distended Respiratory: Clear to auscultation bilaterally, Normal air movement Cardiovascular: Regular rate/rhythm, Normal S1 S2 Gastrointestinal: Normal bowel sounds, No tenderness Musculoskeletal: No tenderness Integumentary: No rashes Neurological: Normal speech, Normal tone, Normal affect Lymphatics: No axilla or inguinal lymphadenopathy - Studies Medications List Reviewed: Yes Assessment And Plan - Current Problems (Diagnosis) (1) Acute on chronic combined systolic (congestive) and diastolic (congestive) heart failure Current Visit: No Status: Acute Plan: continue lasix 40 mg po BID add Aldactone 25 mg daily continue to monitor input and output and electrolytes. (2) Atrial fibrillation Current Visit: No Status: Acute Plan: patient is in AF, rate controlled Continue Sotalol 80 mg po BID Continue Xarelto 20 mg daily continue to monitor on tele (3) S/P CABG (coronary artery bypass graft) Current Visit: No Status: Acute Plan: stable, continue to monitor Cardiology will sing off, please call with any questions.
--- NOTE | 2024-10-27 14:20 | P.PN ---
Date of Service: 10/27/24 Nephrology progress note The patient was admitted with deconditioning, overvolume. The patient was started on diuresis. Apparently, patient was doing well. The patient had coded yesterday all of the sudden. The patient was intubated over the night, extubated. The code was called. The patient stabilized, did not receive any pressor, extubated. October 22 Patient was started yesterday October 22 on Lasix drip tolerated very well had good urine output kidney function stays stable blood pressure stable Physical exam Temp Pulse Resp BP Pulse Ox 98.4 F 78 18 80/55 L 95 10/27/24 12:42 10/27/24 12:42 10/27/24 12:42 10/27/24 12:42 10/27/24 12:42 Chest: Crackles bilateral. Heart: S1, S2. Systolic murmur. Abdomen: Soft, nontender. Extremities: Left below-knee amputation. Right +1 edema. Neurologic: Alert. No focality. Moving 4 extremities. Albuterol Sulfate (Albuterol 2.5 Mg/3 Ml Neb Stephanie) 2.5 mg NEB [id number] PRN PRN Reason: SHORTNESS OF BREATH Last Admin: 10/25/24 20:55 Dose: 2.5 mg Benzonatate (Benzonatate 100 Mg Cap) 100 mg PO TID PRN PRN Reason: COUGH Collagenase (Collagenase 30 Gm Ointment) 0 appl TOP DAILY [facility] Last Admin: 10/26/24 09:00 Dose: Not Given Enteral Nutritional Formula (Glucerna Shake 237 Ml Can) 237 ml PO BID [facility] Last Admin: 10/27/24 08:34 Dose: 237 ml Finasteride (Finasteride 5 Mg Tab) 5 mg PO DAILY [facility] Last Admin: 10/27/24 08:33 Dose: 5 mg Furosemide (Furosemide 40 Mg Tablet) 40 mg PO BIDL [facility] Last Admin: 10/27/24 08:59 Dose: Not Given Guaifenesin (Guaifenesin 100 Mg/5 Ml Ucup) 100 mg PO QID PRN PRN Reason: COUGH Last Admin: 10/26/24 20:20 Dose: 100 mg Ceftriaxone Sodium 1,000 mg/ (Sodium Chloride) 50 mls @ 100 mls/hr IVPB DAILY [facility]; Protocol Last Admin: 10/27/24 08:56 Dose: 50 mls Insulin Human Regular (Insulin Regular (Human) 100 Unit/Ml) 0 unit SQ ACHS [facility]; Protocol Last Admin: 10/27/24 12:24 Dose: 8 unit Liothyronine Sodium (Liothyronine Sod 25 Mcg Tab) 25 mcg PO ACB [facility] Last Admin: 10/27/24 08:34 Dose: 25 mcg Midodrine (Midodrine Hcl 5 Mg Tablet) 5 mg PO TID [facility] Last Admin: 10/27/24 08:34 Dose: 5 mg Ondansetron HCl (Ondansetron 4 Mg/2 Ml Vial) 4 mg IV Q6HP PRN PRN Reason: NAUSEA / VOMITING Last Admin: 10/26/24 08:46 Dose: 4 mg Rivaroxaban (Rivaroxaban 20 Mg Tablet) 20 mg PO DAILY AT SUPPER [facility] Last Admin: 10/26/24 16:49 Dose: 20 mg Sotalol HCl (Sotalol Hcl 80 Mg Tab) 80 mg PO BID 6AM 6PM [facility] Last Admin: 10/27/24 08:40 Dose: 80 mg Spironolactone (Spironolactone 25 Mg Tablet) 25 mg PO DAILY [facility] Last Admin: 10/27/24 08:59 Dose: Not Given Tamsulosin HCl (Tamsulosin 0.4 Mg Sr Cap) 0.4 mg PO BEDTIME [facility] Last Admin: 10/26/24 20:19 Dose: 0.4 mg Thiamine HCl (Thiamine 200 Mg/2 Ml Inj) 200 mg IVP DAILY [facility] Last Admin: 10/27/24 08:34 Dose: 200 mg Laboratory Last Values WBC 8.70 thou/uL (4.3-10.9) 10/19/24 23:03 RBC 3.61 M/uL (4.33-5.43) L 10/19/24 23:03 Hgb 8.1 g/dL (13.6-17.9) L 10/19/24 23:03 Hct 25.0 % (39.6-49.0) L 10/19/24 23:03 MCV 69.4 fL (80-100) L 10/19/24 23:03 MCH 22.4 pg (27.0-35.0) L 10/19/24 23:03 MCHC 32.4 g/dL (32.0-36.0) 10/19/24 23:03 RDW 22.4 % (12.1-15.2) H 10/19/24 23:03 Plt Count 232 thou/uL (152-406) 10/19/24 23:03 MPV 6.5 fL (7.6-11.3) L 10/19/24 23:03 Neutrophils % 82.7 % (41.7-73.7) H 10/19/24 23:03 Lymphocytes % 6.4 % (15.3-44.8) L 10/19/24 23:03 Monocytes % 9.5 % (3.3-12.3) 10/19/24 23:03 Eosinophils % 1.1 % (0-4.4) 10/19/24 23:03 Basophils % 0.3 % (0-1.3) 10/19/24 23:03 Absolute Neutrophils 7.2 K/uL (1.8-8.0) 10/19/24 23:03 Absolute Lymphocytes 0.6 K/uL (0.7-4.9) L 10/19/24 23:03 Absolute Monocytes 0.8 K/uL (0.1-1.3) 10/19/24 23:03 Absolute Eosinophils 0.1 K/uL (0-0.5) 10/19/24 23:03 Absolute Basophils 0.0 K/uL (0-0.5) 10/19/24 23:03 Platelet Estimate Adeq 10/19/24 23:03 Hypochromasia 1+ 10/19/24 23:03 Anisocytosis 2+ 10/19/24 23:03 Microcytosis 1+ 10/19/24 23:03 Svetlana Cells 2+ 10/19/24 23:03 Schistocytes 1+ 10/19/24 23:03 Morphology Comment Noted (NOT SEEN) 10/19/24 23:03 PT 52.3 SECONDS (10-13.0) H 10/19/24 23:03 INR 4.85 10/19/24 23:03 Sodium 135 mEq/L (136-145) L 10/19/24 23:03 Potassium 4.5 mEq/L (3.5-5.1) 10/19/24 23:03 Chloride 104 mEq/L (98-107) 10/19/24 23:03 Carbon Dioxide 27 mEq/L (21-32) 10/19/24 23:03 Anion Gap 8.5 mEq/L (5.0-15.0) 10/19/24 23:03 BUN 37 mg/dL (7-18) H 10/19/24 23:03 Creatinine 1.80 mg/dL (0.70-1.30) H 10/19/24 23:03 Est GFR (CKD-EPI) 38 ml/min (=/>90) L 10/19/24 23:03 Glucose 242 mg/dL (74-106) H 10/19/24 23:03 Calcium 8.4 mg/dL (8.5-10.1) L 10/19/24 23:03 Magnesium 2.1 mg/dL (1.6-2.4) 10/19/24 23:03 Total Bilirubin 0.8 mg/dL (0.2-1.0) 10/19/24 23:03 Direct Bilirubin 0.4 mg/dL (0-0.2) H 10/19/24 23:03 Indirect Bilirubin 0.4 mg/dL (0.2-0.8) 10/19/24 23:03 AST 19 U/L (15-37) 10/19/24 23:03 ALT < 14 U/L (16-61) L 10/19/24 23:03 Alkaline Phosphatase 79 U/L (45-117) 10/19/24 23:03 Troponin I High Sens 39.1 pg/mL (<58.9) 10/19/24 23:03 NT-Pro-B Natriuret Pep 91290 pg/mL (<450) H 10/19/24 23:03 Serum Total Protein 6.3 g/dL (6.4-8.2) L 10/19/24 23:03 Albumin 2.2 g/dL (3.4-5.0) L 10/19/24 23:03 Globulin 4.1 g/dL (2.3-3.5) H 10/19/24 23:03 Albumin/Globulin Ratio 0.5 (1.1-1.8) L 10/19/24 23:03 Lipase 46 U/L (13-75) 10/19/24 23:03 Urine Color Yellow (Yellow) 10/20/24 00:57 Urine Clarity Extremely turbid (Clear) H 10/20/24 00:57 Urine pH 5.0 (5.0-7.0) 10/20/24 00:57 Ur Specific Logan 1.016 (1.005-1.030) 10/20/24 00:57 Glucose (UA)(Auto) Negative (Negative) 10/20/24 00:57 Urine Ketones Negative (Negative) 10/20/24 00:57 Urine Blood 3+ (Negative) H 10/20/24 00:57 Urine Nitrite Negative (Negative) 10/20/24 00:57 Urine Bilirubin Negative (Negative) 10/20/24 00:57 Urine Urobilinogen Normal (Normal) 10/20/24 00:57 Ur Leukocyte Esterase 500 Elsa/uL (Negative) H 10/20/24 00:57 Urine RBC >50 /HPF (None Seen) H 10/20/24 00:57 Urine WBC >50 /HPF (<5) H 10/20/24 00:57 Ur Squamous Epith Cells <5 /HPF (None Seen) 10/20/24 00:57 U Non-Squamous Epi Cells <5 /HPF (None Seen) 10/20/24 00:57 Urine Bacteria <20 /HPF (<20) 10/20/24 00:57 Hyaline Casts 0-5 /LPF (None Seen) 10/20/24 00:57 Urine Mucus Slight /HPF (None Seen) 10/20/24 00:57 Urine Yeast (Budding) Few /HPF (None Seen) H 10/20/24 00:57 Urine Culture Reflexed Reflexed 10/20/24 00:57 Urine Total Protein Trace (Negative) H 10/20/24 00:57 Smear Scan Ok (OK) 10/19/24 23:03 ABO/Rh A NEGATIVE 10/20/24 01:03 Solid Phase Ab Screen Negative 10/20/24 01:03 Assessment And Plan: 1. Acute kidney injury on chronic kidney disease on the overvolume side. Blood pressure is still soft. Also started on oral Lasix October 27 has good urine output we will continue to monitor will follow up the patient's I's and O's stenosis and we will monitor. 2. Hypertension. Currently, blood pressure on the lower side. We will utilize blood pressure for more diuresis. 3. Congestive heart failure with exacerbation as above. We will use Lasix drip with albumin to mobilize third space. 4. Anasarca secondary to malnourished. We will use Lasix drip as above. Continue levothyroxine. 5. Cardiac arrest. Cardiology has evaluated the patient. Will follow up. Continue current treatment. Time spent examining the patient [id number] reviewing data lab and the radiology placing order documentation in the note discussing the case with the steam table attendant including hospitalist and nursing staff in ICU more than 55 minutes
--- NOTE | 2024-10-27 16:46 | P.PN ---
Date of Service: 10/27/24 Subjective: Blood pressure soft, holding lasix Blood sugar elevated Plan for IRF at discharge ROS: 10 point ROS as noted above, otherwise negative Physical exam GEN: oriented x3, NAD HEENT: Normal conjunctiva CV: Afb with mild tachycardia, 1+ pitting edema lower extremity Pulm: normal air movement, on nasal cannula ABD: Soft and benign on palpation MSK: No joint tenderness, 1+ edema, BKA LLE Integumentary: No rashes Neuro: Normal speech, normal affect Vitals reviewed Problem list Cardiac arrest status post ROSC Acute hypoxic respiratory failure Acute on chronic systolic congestive heart failure Atrial fibrillation on chronic anticoagulation with Xarelto History of CAD UTI Anemia of chronic disease CKD stage 3 Diabetes - IDDM Right foot wound HTN PROSTATE CA Plan Cardiac arrest status post ROSC Acute hypoxic respiratory failure Acute on chronic systolic congestive heart failure History of CAD -Extubated 10/22 -Tolerating nasal cannula -Started on Lasix drip 10/22 Good volume urine output Edema improved -Stopped albumin Lasix drip, Lasix 40 mg BID -Add aldactone per cardiology -Patient never complained of any chest pain, was complaining of shortness of breath - Echocardiogram repeated with known EF of 35 to 40%, no significant changes - Cardiology consulted and following-doubts ischemia leading to cardiac arrest - No clear evidence of ischemia/arrhythmia around time of CODE BLUE - Sotalol was discontinued with last dose a.m. of 10/20, patient was started on amiodarone shortly after the CODE BLUE for A-fib RVR Patient developed bradycardia while in ICU, amiodarone stopped, hold sotalol/amiodarone at this time -Sotalol restarted 10/24 Atrial fibrillation on chronic anticoagulation with Xarelto restarted sotalol, rate controlled Continue Xarelto daily UTI Continue Rocephin Anemia of chronic disease CKD stage 3 -Nephrology consulted and following - Stable at this time, repeat chemistry in the morning - Lasix 40 mg BID Diabetes - IDDM -Accucheck with SSI Right foot wound -Wound care consulted -Santyl and dry gauze to foot wound daily HTN PROSTATE CA -Continue outpatient follow up DVT ppx Xarelto Full code 72 hours Discharge Plan: Inpatient rehab facility Time Spent Managing Pts Care (In Minutes): 36
--- NOTE | 2024-10-28 12:05 | P.DS ---
Admission Date: 10/20/24 Discharge Date: 10/28/24 Disposition: TRANSFER TO INPATIENT REHAB Discharge Condition: GOOD Reason for Admission: Low blood pressure Brief History of Present Illness: Diagnosis Cardiac arrest status post ROSC Acute hypoxic respiratory failure Acute on chronic systolic congestive heart failure Atrial fibrillation on chronic anticoagulation with Xarelto History of CAD UTI Anemia of chronic disease CKD stage 3 Diabetes - IDDM Right foot wound HTN PROSTATE CA HPI 10/20/2024 79-year-old male with history of chronic systolic congestive heart failure, CAD with previous CABG, diabetes mellitus type 2, previous left BKA, chronic right foot wound, BPH and hypertension presents to the emergency department with chief complaint of swelling of bilateral lower extremities and generalized weakness. Patient states that he has having decreased range of movements and pain of right leg and left leg as well. Patient has been admitted to the hospital and was just recently discharged but the pain and swelling got worsened and was brought back to the ER. Patient denies any chest pain or shortness of breath. No fever or chills. No nausea vomiting or diarrhea. Patient was assessed in the ER and is admitted for further management Hospital Course: Patient was admitted and treated for the following diagnosis Cardiac arrest status post ROSC Acute hypoxic respiratory failure Acute on chronic systolic congestive heart failure History of CAD -Extubated 10/22 -Tolerating nasal cannula -Started on Lasix drip 10/22 Good volume urine output Edema improved -Stopped albumin Lasix drip, Lasix 40 mg BID -Add aldactone per cardiology -Patient never complained of any chest pain, was complaining of shortness of breath - Echocardiogram repeated with known EF of 35 to 40%, no significant changes - Cardiology consulted and following-doubts ischemia leading to cardiac arrest - No clear evidence of ischemia/arrhythmia around time of CODE BLUE - Sotalol was discontinued with last dose a.m. of 10/20, patient was started on amiodarone shortly after the CODE BLUE for A-fib RVR Patient developed bradycardia while in ICU, amiodarone stopped, hold sotalol/amiodarone at this time -Sotalol restarted 10/24 Atrial fibrillation on chronic anticoagulation with Xarelto restarted sotalol, rate controlled Continue Xarelto daily UTI Continue Rocephin Anemia of chronic disease CKD stage 3 -Nephrology consulted and following - Stable at this time, repeat chemistry in the morning - Lasix 40 mg BID Diabetes - IDDM -Accucheck with SSI Right foot wound -Wound care consulted -Santyl and dry gauze to foot wound daily HTN PROSTATE CA -Continue outpatient follow up Physical exam GEN: oriented x3, NAD HEENT: Normal conjunctiva CV: Afb with mild tachycardia, 1+ pitting edema lower extremity Pulm: normal air movement, on nasal cannula ABD: Soft and benign on palpation MSK: No joint tenderness, 1+ edema, BKA LLE Integumentary: No rashes Neuro: Normal speech, normal affect Vital Signs/Physical Exam: Temp Pulse Resp BP Pulse Ox 97.9 F 79 22 H 85/53 L 94 10/28/24 08:00 10/28/24 08:00 10/28/24 08:00 10/28/24 08:00 10/28/24 08:00 Laboratory Data at Discharge: WBC 5.70 thou/uL (4.3-10.9) 10/27/24 06:25 Hgb 8.3 g/dL (13.6-17.9) L 10/27/24 06:25 Hct 25.9 % (39.6-49.0) L 10/27/24 06:25 Plt Count 166 thou/uL (152-406) 10/27/24 06:25 PT 52.3 SECONDS (10-13.0) H 10/19/24 23:03 INR 4.85 10/19/24 23:03 APTT 46.9 SECONDS (27.2-37.4) H 10/24/24 04:58 Sodium 136 mEq/L (136-145) 10/27/24 06:25 Potassium 3.6 mEq/L (3.5-5.1) 10/27/24 06:25 BUN 23 mg/dL (7-18) H 10/27/24 06:25 Creatinine 1.43 mg/dL (0.70-1.30) H 10/27/24 06:25 Glucose 373 mg/dL (74-106) H 10/27/24 06:25 Phosphorus 3.0 mg/dL (2.5-4.9) 10/24/24 04:58 Magnesium 1.8 mg/dL (1.6-2.4) 10/27/24 06:25 Total Bilirubin 0.6 mg/dL (0.2-1.0) 10/27/24 06:25 AST 13 U/L (15-37) L 10/27/24 06:25 ALT 17 U/L (16-61) 10/27/24 06:25 Alkaline Phosphatase 68 U/L (45-117) 10/27/24 06:25 Lipase 46 U/L (13-75) 10/19/24 23:03 Home Medications: Insulin Degludec [Tresiba Flextouch U-200] 40 units SQ BEDTIME 04/14/18 Tamsulosin HCl 0.4 mg PO BEDTIME 04/14/18 Sotalol HCl [Betapace*] 80 mg PO BID 6AM 6PM #60 tab 05/28/19 glipiZIDE [Glipizide ER] 5 mg PO BID 02/08/20 Dapagliflozin Propanediol [Farxiga] 5 mg PO DAILY 03/28/21 Rivaroxaban [Xarelto] 20 mg PO BEDTIME 03/28/21 Rosuvastatin Calcium [Crestor] 20 mg PO BEDTIME 03/28/21 Famotidine 20 mg PO DAILY 01/28/23 Finasteride 5 mg PO DAILY 01/28/23 Magnesium Oxide [Magnesium] 400 mg PO BID 01/28/23 Zinc Gluconate [Zinc] 30 mg PO DAILY 01/28/23 Benzonatate [Tessalon Perle*] 100 mg PO TID PRN cap 06/30/24 Liothyronine Sodium [Cytomel] 25 mcg PO DAILY 08/02/24 Zinc Oxide [Zinc Oxide 20%*] 1 appl TOP DAILY tube 09/10/24 Collagenase [Santyl Ointment*] 0 appl TOP DAILY 30 Days #1 tube 10/28/24 Furosemide [Lasix*] 40 mg PO BIDL 30 Days #60 tab 10/28/24 Glucerna Shake [Glucerna*] 237 ml PO BID can 10/28/24 Midodrine HCl [Proamatine*] 5 mg PO TID 30 Days #90 tab 10/28/24 Sotalol HCl [Betapace*] 80 mg PO BID 6AM 6PM 30 Days #60 tab 10/28/24 Spironolactone [Aldactone*] 25 mg PO DAILY 30 Days #30 tab 10/28/24 Thiamine HCl [Vitamin B-1] 100 mg PO DAILY 30 Days #30 tab 10/28/24 guaiFENesin [Robitussin 100MG/5ML*] 5 ml PO QID PRN 10 Days #200 ml 10/28/24 New Medications: Spironolactone [Aldactone*] 25 mg PO DAILY 30 Days #30 tab Sotalol HCl [Betapace*] 80 mg PO BID 6AM 6PM 30 Days #60 tab Furosemide [Lasix*] 40 mg PO BIDL 30 Days #60 tab Midodrine HCl [Proamatine*] 5 mg PO TID 30 Days #90 tab guaiFENesin [Robitussin 100MG/5ML*] 5 ml PO QID PRN 10 Days #200 ml PRN Reason: Cough Collagenase [Santyl Ointment*] 0 appl TOP DAILY 30 Days #1 tube Thiamine HCl [Vitamin B-1] 100 mg PO DAILY 30 Days #30 tab Physician Discharge Instructions: 1. Please call and schedule a follow-up appointment with your PCP in 3-5 days - Please follow-up with your PCP for medication refills/adjustments 2. Please call and schedule a follow-up appointment with Dr. Flores in 1-2 weeks 3. Please call and schedule a follow-up appointment with Dr. Parker n 1-2 weeks 3. Continue heart healthy diet 4. activity restrictions fall precautions, work with physical therapy 5. Return to the ED if symptoms worsen Diet: AHA Activity: Fall precautions Followup: Bereket Parker MD [ACTIVE - CAN ADMIT] - 1-2 Weeks Joseph Flores MD [ACTIVE - CAN ADMIT] - 1-2 Weeks NONE,NONE [Primary Care Provider] -
[2024-10-28 12:18] VITALS: BP 109/55; TEMP 98
[2024-10-28 12:47] VITALS: O2SAT 96
[2024-10-28] MEDS ORDERED: SUCCINYLCHOLINE 20 MG/ML (10 ML) IV ONE (13:44)
== END 2024-10-28 13:45 | DRG 208 ==
LOC: ER 21:51 → ERHOLD 10-20 01:28 → 2ND 10-20 04:36 → 3RD-ICU 10-21 06:50 → 2ND 10-24 13:07
PROVIDERS: ADMIT Family Medicine; ATTEND Internal Medicine
PROC: 5A1945Z Respiratory Ventilation, 24-96 Consecutive Hours (ICD-10-PCS; principal; 2024-10-21)
PROC: 0BH17EZ Insertion of Endotracheal Airway into Trachea, Via Natural or Artificial Opening (ICD-10-PCS; 2024-10-21)
PROC: 4A033R1 Measurement of Arterial Saturation, Peripheral, Percutaneous Approach (ICD-10-PCS; 2024-10-21)
PROC: 0DH67UZ Insertion of Feeding Device into Stomach, Via Natural or Artificial Opening (ICD-10-PCS; 2024-10-21)
PROC: 0T9B70Z Drainage of Bladder with Drainage Device, Via Natural or Artificial Opening (ICD-10-PCS; 2024-10-21)
DX: J96.01 Acute respiratory failure with hypoxia (principal); I46.9 Cardiac arrest, cause unspecified; I50.43 Acute on chronic combined systolic (congestive) and diastolic (congestive) heart failure; I13.0 Hypertensive heart and chronic kidney disease with heart failure and stage 1 through stage 4 chronic kidney disease, or unspecified chronic kidney disease; I48.20 Chronic atrial fibrillation, unspecified; N39.0 Urinary tract infection, site not specified; E11.52 Type 2 diabetes mellitus with diabetic peripheral angiopathy with gangrene; N17.9 Acute kidney failure, unspecified; E46 Unspecified protein-calorie malnutrition; N18.30 Chronic kidney disease, stage 3 unspecified; E11.22 Type 2 diabetes mellitus with diabetic chronic kidney disease; D63.1 Anemia in chronic kidney disease; D50.9 Iron deficiency anemia, unspecified; I95.9 Hypotension, unspecified; E78.5 Hyperlipidemia, unspecified; I49.3 Ventricular premature depolarization; I27.20 Pulmonary hypertension, unspecified; C61 Malignant neoplasm of prostate; I08.0 Rheumatic disorders of both mitral and aortic valves; E88.09 Other disorders of plasma-protein metabolism, not elsewhere classified; I25.10 Atherosclerotic heart disease of native coronary artery without angina pectoris; Z88.5 Allergy status to narcotic agent; Z79.4 Long term (current) use of insulin; Z95.1 Presence of aortocoronary bypass graft; Z79.01 Long term (current) use of anticoagulants; Z79.84 Long term (current) use of oral hypoglycemic drugs; Z79.890 Hormone replacement therapy; Z79.899 Other long term (current) drug therapy; Z89.512 Acquired absence of left leg below knee; Z68.26 Body mass index [BMI] 26.0-26.9, adult; Z78.1 Physical restraint status
CPT/HCPCS: 36415; 36600; 70450; 71045; 74018; 80048; 80053; 80076; 81001; 82805; 82947; 83690; 83735; 83880; 84100; 84132; 84439; 84443; 84484; 85025; 85027; 85610; 85730; 86850; 86900; 86901; 87077; 87086; 87088; 87186; 92610; 93005; 93306; 93970; 94002; 94003; 94640; 94760; 96365; 96375; 97110; 97116; 97161; 97530; 99285; J0171; J0282; J0330; J0461; J0692; J0696; J1644; J1650; J1815; J1938; J2250; J2405; J2470; J2704; J3010; J3411; J3475; J3480; J3590; J7050; J7060; J7613; P9047

== ENCOUNTER 2024-10-27 16:19 | Inpatient (IN) | payer BC, OTHER ==
[2024-10-28 14:41] VITALS: BMI 25.7
[2024-10-28] MEDS ORDERED: guaiFENesin 100 MG/5 ML UCUP PO PRN (15:06)
[2024-10-28] MEDS ORDERED: BENZONATATE 100 MG CAP PO PRN (15:07)
[2024-10-28] MEDS: FUROSEMIDE 40 MG TABLET PO SCH (17:18)
[2024-10-28] MEDS: glipiZIDE 5 MG TAB PO SCH (17:19)
[2024-10-28] MEDS: SOTALOL HCL 80 MG TAB PO SCH (17:19)
[2024-10-28] MEDS: RIVAROXABAN 20 MG TABLET PO SCH (17:19)
[2024-10-28] MEDS: INSULIN REGULAR (HUMAN) 100 UNIT/ML SQ SCH (17:34)
[2024-10-28] MEDS: GLUCERNA SHAKE 237 ML CAN PO SCH (20:00)
[2024-10-28] MEDS ORDERED: TRESIBA 40 UNIT SQ SCH (21:00)
[2024-10-28] MEDS: INSULIN GLARGINE 100 UNIT/ML SQ SCH (21:31)
[2024-10-28] MEDS: MIDODRINE HCL 5 MG TABLET PO SCH (21:32)
[2024-10-28] MEDS: ROSUVASTATIN 10 MG TAB PO SCH (21:32)
[2024-10-28] MEDS: MAGNESIUM OXIDE 400 MG TAB PO SCH (21:32)
[2024-10-28] MEDS: TAMSULOSIN 0.4 MG SR CAP PO SCH (21:32)
[2024-10-28 22:18] LABS: Sqamous Epithelial None Seen /HPF (None Seen); Urine Culture Reflex Order NOT NEEDED; Urine Microscopic Reflex YN ORDER UMIC
[2024-10-28] MEDS: MELATONIN 3 MG TABLET PO PRN (23:23)
--- NOTE | 2024-10-29 00:24 | HP ---
Date of Admission: 10/28/2024 Time Of Service: 2 p.m. Chief Complaint: "I'm weak, I need to get stronger." History Of Present Illness: A 79-year-old patient with diabetes mellitus type 2, hypertension, stage 3 chronic kidney disease, systolic CHF, coronary artery disease, dyslipidemia, atrial fibrillation, on anticoagulation, who was independent living at home and ambulating within his home with a rolling walker or cane and at times without assistive device when he had worsening bilateral lower extremity swelling and generalized weakness with shortness of breath and dyspnea on exertion. He was evaluated at the hospital and diagnosed with acute on chronic systolic and diastolic congestive heart failure, atrial fibrillation, of course hypertension, dyslipidemia, stage 3 kidney disease, type 2 diabetes, coronary artery disease, anemia, and a right foot wound. The patient does have left [id number] a mputation that was done in 2015. He also has a history of prostate cancer. While hospitalized on the 20 of October, he suffered a myocardial infarction requiring Code Blue, ches t compressions, emergent intubation. He was admitted to the ICU for acute respiratory failure. He d id have return of spontaneous circulation and remained intubated until October 22. He was managed by Cardiology Service, have IV diuretics, telemetry. Nephrology evaluated and managed him for volume o verload and his comorbid conditions addressed. Santyl and dry gauze dressings were given to the chantel ent's wound. He was put on 3 L of oxygen via nasal cannula and had a Chakraborty catheter placed for urina ry retention. He is set up for outpatient Urology evaluation. As noted above, hospital course was complicated by myocardial infarction, acute respiratory failure w ith volume overload, and significant weakening in the proximal upper and lower extremities consistent with the critical illness myopathy. Furthermore, he did drop his hemoglobin and hematocrit for his renal function. He was evaluated by the Therapy Service and found to require contact guard assistanc e for bed mobility, sit to stand, ambulation of 15 feet only with a rolling walker. In addition, giv en his history of left below-knee amputation, he needs to be able to don and doff his prosthesis inde pendently which he is doing. Did require min assist for that. As a result, due to significant decli ne and complex medical conditions, he is referred now to inpatient rehabilitation for physical and oc cupational therapy along with management of his comorbid conditions. If he is to be discharged home or to usp, would likely not improve but worsen. Admission to the inpatient rehabilitatio n unit is necessary to help him return towards his prior level of functioning and reduce risk of reho spitalization. Past Medical History: As noted above. Past Surgical History: Carotid stent placement, quintuple bypass in 2017, left below-knee amputation in 2016, prostate surgery, bladder surgery, skin graft. Allergies: HYDROCODONE AND CODEINE. Medications: Tessalon Perles 100 mg 3 times daily, Santyl apply topically daily to wound, Glucerna 2 37 mL twice daily, Pepcid 20 mg daily, Proscar 5 mg daily, Lasix 40 mg twice daily, glipizide 10 mg t wice daily, Robitussin 100 mg 4 times daily as needed, hydrocortisone 0.1% apply topically as needed, Semglee insulin 20 units twice daily, Cytomel 25 mcg daily, magnesium oxide 400 mg twice daily, mido drine 5 mg 3 times daily, Xarelto 20 mg daily, Crestor 20 mg at bedtime, Betapace 80 mg twice daily, Aldactone 20 mg daily, Flomax 0.4 mg at bedtime vitamin D1 100 mg daily, and zinc sulfate 220 mg gwendolyn y. Laboratory Studies: Blood sugars currently up to 351. White blood cell count 5.7, hemoglobin 8.3, h ematocrit 25.9, and platelets 166. Potassium 3.6, glucose 373 in addition to 351 recently, BUN 23, c reatinine 1.43, calcium 8.4, magnesium 1.8, albumin 2.4, sodium 136. Family History: Noncontributory. Social History: No alcohol, tobacco, or IV drug use. The patient was independent living, single fam efrain home. Review of Systems: He does report some diffuse weakness, but no focal weakness in upper and lower extremities and no dif ficulty sleeping, but difficulty with bowel movements. No significant pain. Says pain is 0/10. Mil d myalgias and arthralgias. No rash. No other positives on the systems review. Current Level Of Functioning: Currently, Mr. Collins is at setup assistance for eating, grooming setup assistance, bathing moderate assistance, upper body dressing supervision, lower body dressing supervi vanna. Toileting, moderate assistance. Wheelchair and bed transfer moderate assistance. Toilet proctor sfer, moderate assistance. Ambulation, he covered 15 feet twice with setup assistance. Physical Examination: Vital Signs: Blood pressure 105/54, pulse 95, respiratory rate 18, temperature 97.8, oxygen saturati on 95%. Weight 195 pounds, height 6 feet 1 inch, BMI 25.7. General: Mr. Collins is resting comfortably. He is lying somewhat on his right side. HEENT: He is normocephalic, atraumatic. Sclerae anicteric. Oropharynx pink, moist. Chest: Decreased breath sounds bilaterally. Abdomen: Soft. Extremities: Show no significant edema, cyanosis, or clubbing. Just trace edema in upper and lower extremities. Neuro: Cranial nerves, no focal deficits. On motor, he has proximal weakness upper and lower extrem ities around 4/5. Sensation, stocking-glove loss, light touch temperature, depressed reflexes. Rehab And Medical Assessment And Plan: Mr. Collins is a 79-year-old patient, admitted to the inpatient rehabilitation unit with impairment category 06, neurological condition. Impairment group code is 03 .8, neuromuscular disorder. 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 Comorbid conditions include de creased mobility, decreased physical functioning, diabetes mellitus type 2, chronic kidney disease st age III, hypertension, systolic CHF, of course coronary artery disease, dyslipidemia, atrial fibrilla tion, on chronic anticoagulation, prostate hypertrophy, prostate cancer. Plan: He will have physical and occupational therapy 3 hours a day, 5 of 7 days. He has a list of c omorbid conditions which are mentioned above. He will be managed with glipizide for his diabetes gustavo litus along with Semglee insulin 20 units twice daily, Flomax for prostate hypertrophy 0.4 mg at [facility], Aldactone, potassium-sparing diuretic will be on board, zinc sulfate for his immune system functio n, thiamine to improve nerve recovery, Crestor for dyslipidemia, midodrine for pressure support relat ed to hypotension. He has Cytomel for hypothyroidism. He has hydrocortisone cream on board for his area of itching disturbance, Lasix for fluid management, Proscar for prostate hypertrophy, Pepcid for GE reflux, Glucerna for mild malnutrition, Santyl to address his wound, and Tessalon Perles for coug h. Comorbidities That Are Impacting Rehabilitation: As noted, the patient has had intubation, he does h ave myocardial infarction, some risk of additional episodes. We will carefully monitor the patient a nd will have EKG if need be. CT scan of the chest and abdomen if need be. He also has chronic stage III renal disease. We will monitor fluid level and hydration to reduce prerenal worsening or volume overload. No pain issues at this point. He does have significant debility. Those will be worked o n with therapy. Rehab Specific Plan: He will have physical and occupational therapy 3 hours a day, 5 of 7 days to im prove his ability to transfer from the bed to a chair, to a toilet on and off, in the shower in and o ut, and to dress upper and lower body, to perform all activities of daily living towards independence to help him to return to that level. He will be expected to be able to mobilize at least 250 feet w ith a walker and a wheelchair and up and down 10 steps. Mr. Collins has a good understanding of the process of admission to the inpatient rehabilitation unit an d how he will benefit from physical and occupational therapy. He will have 24 hours a day, 7 days a week, skilled rehabilitation and nursing, daily physician evaluation and management, and social servi yumiko evaluation and management for discharge planning, home equipment, and for physician followup. If need be, the Hospitalist Service will be consulted. Barriers To Discharge: Given the patient has had myocardial infarction very recently, he has had mul tivessel cardiac bypass, he is at risk for additional cardiac pathology and if need be, Hospitalist Adonay seals will be brought in. If he requires more extended stay to be able to return home, he may have to go to usp; however, the goal is to return home. Length Of Stay: About 2 weeks. Disposition: Expected to be home to continue therapy via Home Health. Prognosis: Good. Code Status: Full code. Rehab Specific Goals: 1. Become independent with upper and lower body dressing and donning and doffing footwear. 2. Independently perform all activities of daily living. 3. Independently go up and down 10 steps with bilateral handrails. 4. Independently propel a wheelchair 250 feet and a rolling walker 250 feet. 5. Independently perform cognitive functioning. The above goals were reviewed with Mr. Collins and he is in agreement. By signing this document, I acknowledge I personally performed a full physical examination on Mr. Dione tobin no later than 24 hours after his admission to the inpatient rehabilitation unit and determined that he is able to tolerate the above course of treatment at an intensive level for a reasonable period o f time. A detailed individualized plan of care for him will be completed by hospital day 4 based on the preadmission screen, history and physical, and therapy evaluations. CHESTER Voice ID: [id number]
[2024-10-29 04:56] LABS: Absolute Lymphocytes (CBC) 1.2 K/uL (0.7-4.9); Hematocrit 26.4 % (39.6-49.0); Hemoglobin 8.4 g/dL (13.6-17.9); MCH 22.5 pg (27.0-35.0); MCHC 31.8 g/dL (32.0-36.0); MCV 70.7 fL (80-100); MPV 7.5 fL (7.6-11.3); Nucleated RBC Absolute Count 0.0 (0-0); Nucleated Red Blood Cells % 0.1 % (0-0); RBC Red Blood Cell Count 3.73 M/uL (4.33-5.43); White Blood Count 7.20 thou/uL (4.3-10.9)
[2024-10-29 05:16] LABS: Albumin 2.5 g/dL (3.4-5.0); Anion Gap 7.9 mEq/L (5.0-15.0); BUN Blood Urea Nitrogen 33.0 mg/dL (7-18); Glucose Level 147.0 mg/dL (74-106); Magnesium 2.1 mg/dL (1.6-2.4); Potassium 3.9 mEq/L (3.5-5.1); Prealbumin 6.5 mg/dL (20-40)
[2024-10-29] MEDS ORDERED: ZINC OXIDE 20% OINTMENT 60gm TOP SCH (08:00)
[2024-10-29] MEDS: DAPAGLIFLOZIN PO SCH (08:00)
[2024-10-29] MEDS: SPIRONOLACTONE 25 MG TABLET PO SCH (08:00)
[2024-10-29 08:21] LABS: Anisocytosis 2+; Blood Morphology Comment NOTED (NOT SEEN); White Blood Cell Scan OK (OK)
[2024-10-29 08:22] LABS: Hypochromasia 1+; Microcytosis 2+
[2024-10-29] MEDS: FINASTERIDE 5 MG TAB PO SCH (08:48)
[2024-10-29] MEDS: FAMOTIDINE 20 MG TAB PO SCH (08:48)
[2024-10-29] MEDS: THIAMINE HCL 100 MG TABLET PO SCH (08:49)
[2024-10-29] MEDS: HYDROCORTISONE 1 % CREAM 30GM TOP PRN (08:50)
[2024-10-29] MEDS: COLLAGENASE 30 GM OINTMENT TOP SCH (08:50)
[2024-10-29] MEDS: ONDANSETRON 4 MG (ODT) TAB PO PRN (09:02)
[2024-10-29] MEDS: ZINC SULFATE 220 MG CAP PO SCH (09:02)
[2024-10-29] MEDS: LIOTHYRONINE SOD 25 MCG TAB PO SCH (10:38)
[2024-10-29] MEDS: MIDODRINE HCL 5 MG TABLET PO SCH (12:21)
[2024-10-29] MEDS: LOPERAMIDE HCL 2 MG CAPSULE PO PRN (13:23)
[2024-10-29] MEDS: TRAMADOL HCL 50 MG TAB PO PRN (14:27)
[2024-10-30] MEDS: glipiZIDE 5 MG TAB PO SCH (08:21)
[2024-10-30] MEDS: FERROUS SULFATE 325 MG TAB PO SCH (08:22)
[2024-10-30] MEDS: FE SULF/FA/VIT B COMP & C TAB PO SCH (08:22)
[2024-10-30] MEDS ORDERED: D10W 0 ML IV ONE (16:44)
[2024-10-30] MEDS: INSULIN GLARGINE 100 UNIT/ML SQ SCH (20:00)
[2024-10-30] MEDS: CRANBERRY FRUIT EXTRACT 425 MG CAPSULE PO SCH (20:07)
[2024-10-30] MEDS: DULOXETINE 30 MG CAP PO SCH (20:07)
[2024-10-30] MEDS: MEGESTROL 40 MG TAB PO SCH (20:07)
[2024-10-30] MEDS: ALBUTEROL 2.5 MG/3 ML NEB SOL NEB PRN (20:14)
[2024-10-31] MEDS: MIDODRINE HCL 5 MG TABLET PO SCH (16:27)
[2024-10-31] MEDS: JUVEN PACKET PO SCH (20:00)
[2024-10-31] MEDS: ENSURE HIGH PROTEIN 237 ML CAN PO SCH (20:00)
--- NOTE | 2024-11-01 01:29 | PN ---
Date of Progress Note: 10/31/2024 Time: 1:25. Subjective: Mr. Collins is resting comfortably. No complaints. Still has significant shortness of enrico ath and has difficulty mobilizing and is weak proximally in upper and lower extremities due to his CH F myopathy. Objective: He is denying any fevers or chills. Mild myalgias and arthralgias, and the weakness in h is upper and lower extremities. No psychiatric complaints. No other complaints except there is urin yina retention with Chakraborty in place and he had bladder training and today, we will have the Chakraborty porfirio ter removed to see how well he does. Flomax on board. Physical Examination: Vital Signs: Blood pressure 87/56, pulse 80, respiratory rate of 18, temperature 97.6, oxygen satura tion 99%. General: Mr. Collins is resting well, in no significant distress. HEENT: He is normocephalic, atraumatic. Sclerae anicteric. Oropharynx pink, moist. Neck: Supple. Chest: Clear. Extremities: No significant edema, cyanosis, or clubbing is noted. Proximal weakness is unchanged. Laboratory Studies: White blood cell count 7.2, hemoglobin 8.4, platelets 203, glucose ranged from 7 8 to 169. X-ray imaging, no new x-rays or imaging. Medications: Albuterol nebulizer 2.5 mg every 6 hours as needed for shortness of breath, Tessalon Pe rle 100 mg 3 times daily, collagenase applied to the sacral wounds daily, duloxetine 30 mg at bedtime for depression and neuropathic pain, ferrous sulfate 325 mg daily for iron deficiency, Pepcid for GE reflux, Proscar for prostate hypertrophy and urinary retention. He has Lasix 40 mg twice daily for urine production and fluid management. Glipizide 5 mg twice daily for diabetes mellitus management. Robitussin 100 mg every 4 hours for cough. He has insulin 10 units at bedtime for blood sugar contr ol. Cytomel for the hypothyroidism. He has Imodium 2 mg every 4 hours for diarrhea. Magnesium oxid e 400 mg twice daily. Megace 40 mg twice daily for poor appetite, melatonin 3 mg at bedtime, midodri ne 5 mg at 5 p.m. and 7 in the morning 10 mg, multivitamin daily, Ensure High Protein 237 mL twice da efrain, Zofran 4 mg every 6 hours for nausea. He has Xarelto 20 mg daily for atrial fibrillation, Crest or 20 mg at bedtime, Betapace 80 mg twice daily for heart rate control, Aldactone 25 mg daily, Flomax 0.4 mg at night, tramadol 50 mg every 6 hours, thiamine 100 mg daily, zinc sulfate 220 mg daily. Progress Made With Physical, Occupational Therapy: With physical therapy today, completed wheelchair mobilization 75 feet with contact guard assistance, up and down 3 steps with contact guard assistanc e. His blood pressure after runs 93/54, heart rate of 57, needed 3 minutes of recovery ti me. In addition, he ambulated 15 feet and 40 feet using a rolling walker with contact guard assistan ce and mobilizing only 250 feet with supervision. Blood pressure at that point was 108/63. With occ upational therapy, he did bilateral upper extremity aerobic exercises 2 times 5 minutes each with res t breaks. 60 heart rate and blood pressure 107/62. Assessment: Mr. Collins is a 79-year-old patient in the rehabilitation unit with CHF myopathy. He does have significant decreased mobility, decreased physical functioning, multiple comorbid conditions, s hortness of breath. He has nebulizer treatment relatively for atrial fibrillation, Crestor for dysli pidemia, Betapace for heart rate control, spironolactone for fluid management, Ensure Enlive for maln utrition, midodrine for blood pressure support from orthostatic drop in blood pressure. He has Megac e for poor appetite, Cytomel for hypothyroidism, insulin for diabetes mellitus along with glipizide, and ferrous sulfate for iron deficiency, neuropathic pain addressed with duloxetine, cough with Lyly nicolle Perle, and collagenase for sacral breakdown of wound. Plan: We will continue with physical and occupational therapy 3 hours a day, 5 to 7 days. He has a list of medications which have been noted and comorbid conditions as well. These have been continued . The patient's goal is to be able to return home and be fully independent based on his family involved in his care. ELIZABETH/FRANCY Voice ID: [id number] Report ID: [id number]
[2024-11-01] MEDS: MIDODRINE HCL 5 MG TABLET PO SCH (07:00)
[2024-11-01] MEDS: CYANOCOBALAMIN 1000MCG/ML INJ IM ONE (17:01)
--- NOTE | 2024-11-02 01:40 | PN ---
Date of Progress Note: 11/01/2024 Time: 1:35. Subjective: Mr. Collins is resting well. Has no new complaints. Has improving strength and breathing is improving, although still needs to work on his incentive spirometry, improved endurance. Objective: No fevers, chills. No significant myalgias, arthralgias. No rash and again Chakraborty cathet er removed. Physical Examination: Vital Signs: Blood pressure ranged 99 to 116 over 54 to 67, respiratory rate of 16 to 20, temperatur e 97.9, pulse 73, and oxygen saturation 98%. General: Mr. Collins is doing well, in no significant distress. Has fair air movement. Abdomen: Soft. Neuro: No focal deficits. Laboratory Studies: Blood sugars ranged from 155 to 177. X-ray/imaging: No new x-rays or imaging. Medications: His medications have been reviewed and are unchanged except he has Florinef added for l ow blood pressure that is 0.1 mg twice daily, is on top of the midodrine where he has 10 mg in the mo rning, 5 mg at noon. He does have potassium-sparing diuretic on board that is Aldactone 25 mg daily in addition to Flomax for prostate hypertrophy. Medications have been continued and without change. Progress Made With Physical And Occupational Therapy: Today with physical therapy, he did have signi ficant drop in blood pressure down to 83/50, heart rate of 60. However, the patient denied dizziness over the time, but therapy was very cautiously done. He did ambulate 50 feet twice and was able to go up and down 5 steps twice with minimum assistance. He also ambulated with a rolling walker 30 fee t 3 times with contact guard assistance and then later a wheelchair 100 feet with standby assistance. With occupational therapy, the patient was fatigued throughout the session. Blood pressure 97/58, heart is 64, did have a [id number] transfer and blood pressure is 99/60, heart rate is 64. He did have oxygen 2 L via nasal cannula and required multiple rest breaks due to fatigue. Assessment And Plan: Mr. Collins is a 79-year-old patient with CHF myopathy. He still has significant decreased mobility, decreased physical functioning, marked low blood pressure. He has atrial fibrill ation, on Xarelto. He has Florinef and midodrine just for blood pressure, Megace for poor appetite, Cytomel for hypothyroidism, Semglee insulin on board for diabetes mellitus. He does have glipizide 5 mg twice daily and ferrous sulfate, duloxetine, collagenase for lower extremity wound. He has Lyly De León for cough. Plan will be to continue with physical and occupational therapy 3 hours a day, 5 of 7 days. Continue with his comorbid condition medications which have been noted. Incentive spi rometry is strongly encouraged. ELIZABETH/FRANCY Voice ID: [id number] Report ID: [id number]
[2024-11-02 06:10] LABS: Absolute Lymphocytes (CBC) 1.0 K/uL (0.7-4.9); Hematocrit 27.6 % (39.6-49.0); Hemoglobin 9.0 g/dL (13.6-17.9); MCH 23.0 pg (27.0-35.0); MCHC 32.4 g/dL (32.0-36.0); MCV 71.0 fL (80-100); MPV 7.4 fL (7.6-11.3); Nucleated RBC Absolute Count 0.0 (0-0); Nucleated Red Blood Cells % 0.1 % (0-0); RBC Red Blood Cell Count 3.89 M/uL (4.33-5.43); White Blood Count 5.90 thou/uL (4.3-10.9)
[2024-11-02 06:34] LABS: Albumin 2.5 g/dL (3.4-5.0); Anion Gap 7.9 mEq/L (5.0-15.0); BUN Blood Urea Nitrogen 32.0 mg/dL (7-18); Glucose Level 123.0 mg/dL (74-106); Magnesium 2.3 mg/dL (1.6-2.4); Potassium 3.9 mEq/L (3.5-5.1); Prealbumin 6.3 mg/dL (20-40)
[2024-11-02 08:40] LABS: Anisocytosis 2+; Blood Morphology Comment NOTED (NOT SEEN); Microcytosis 1+; White Blood Cell Scan OK (OK)
[2024-11-02 08:41] LABS: Ovalocytes SLIGHT
[2024-11-02] MEDS: FLUDROCORTISONE 0.1 MG TAB PO SCH (08:53)
[2024-11-02] MEDS: ALBUMIN HUMAN 25% 100 ML IV ONE (14:55)
[2024-11-02] MEDS: FLUTICASONE 50MCG NASAL SPRAY NAS PRN (14:55)
--- NOTE | 2024-11-02 15:28 | RAD REPORT ---
EXAM: AP view(s) of the abdomen Abdomen 1 View (KUB) HISTORY: r/o abdominalissues COMPARISON: 10/21/2024 FINDINGS: Nonobstructive bowel gas pattern.. Mild formed stool burden. No suspicious calcifications are seen. No acute osseous abnormality. Other: Small left pleural effusion. Possible chronic changes and/or pulmonary edema in the lungs. Vernon rnotomy. NG tube has been removed. IMPRESSION: Nonobstructive bowel gas pattern.
[2024-11-02] MEDS: LACTOBACILLUS/ACIDOPHILUS TAB PO SCH (20:13)
[2024-11-02] MEDS: MEGESTROL 400 MG/10 ML UCUP PO SCH (20:13)
[2024-11-02] MEDS: DULOXETINE 20 MG CAP PO SCH (20:14)
--- NOTE | 2024-11-03 00:35 | PN ---
Date of Progress Note: 11/02/2024 Time Of Service: 1:35 p.m. Subjective: Mr. Collins is resting, lying in bed, he is less energetic today than yesterday. He did re ceive B12 shots. In addition, did have as well antidepressant increased to 40 mg daily. He is also on Flonase for allergies. He does have the probiotics now added lactobacillus and on Megace 400 mg t wice daily, increased from 40 mg twice daily with poor appetite. Furthermore, he did have a low pre- albumin that is significantly low and he received 25 g albumin IV. Objective: He says his energy level is not a lot. He still wants to rest a bit, but denies any feve rs, chills. No nausea, vomiting, myalgias, arthralgias. To rule out the presence of issues in the a bdomen, the therapists and the staff noted he seemed to appear somewhat less in posi tion; however, the KUB study was normal. There was a nonobstructive bowel gas pattern. There were p robably chronic pulmonary edema in the lungs noted and small pleural effusions seen. Of course, an N G tube that was present had been removed and a mild amount of formed stool identified. Laboratory Studies: Blood sugars ranged from 106 to 177. Prealbumin was down to 6.3, albumin 2.5, m agnesium 2.3, calcium 8.3, sodium 133, chloride 95, creatinine 1.39, BUN 32, white blood cell count 5 .9, hemoglobin 9.0, platelets 363. Peripheral smear okay. Progress Made With Physical, Occupational, And Speech Therapy: With physical therapy today, mobilize d a wheelchair 60 feet with minimum to contact guard assistance. Bed mobility and transfers with min imum to moderate assistance with multiple attempts. With occupational therapy, standby assistance fo r ppv-[id number] transfers and did a shower. Completed ADLs on 2 L of oxygen requiring multiple rest b reaks. Assessment: Mr. Collins is a 79-year-old patient with CHF myopathy. He has decreased mobility, decreas ed physical functioning in addition to [id number] pain, urinary outflow tract obstruction, dysl ipidemia, atrial fibrillation, orthostatic hypotension, hypothyroidism, diabetes mellitus, depression , resolved cough. In addition, significantly low pre-albumin. Plan: He will have physical and occupational therapy 3 hours a day, 5 of 7 days. His list of medica tions which have been noted will be continued. We will follow his albumin and pre-albumin, hemoglobi n, hematocrit, hydration levels. His blood pressure which is in good range is around earlier today t o 94/52 with pulse of 62. LB/MODL Voice ID: [id number] Report ID: [id number]
--- NOTE | 2024-11-03 13:00 | P.RH.PN ---
Estimated Length of Stay: 13 Expected Discharge Date: 11/09/24 Discharge Disposition Plan: Home Family Support: Yes Occupational Health Professional Goal: Mobility, Transfers, Self Care Vital Signs: Last Vital Signs Temp 97.5 F 11/03/24 07:05 Pulse 67 11/03/24 08:57 Resp 18 11/03/24 07:05 BP 95/58 L 11/03/24 08:57 Pulse Ox 98 11/03/24 07:05 Laboratory: Laboratory Last Values WBC 5.90 thou/uL (4.3-10.9) 11/02/24 05:42 RBC 3.89 M/uL (4.33-5.43) L 11/02/24 05:42 Hgb 9.0 g/dL (13.6-17.9) L 11/02/24 05:42 Hct 27.6 % (39.6-49.0) L 11/02/24 05:42 MCV 71.0 fL (80-100) L 11/02/24 05:42 MCH 23.0 pg (27.0-35.0) L 11/02/24 05:42 MCHC 32.4 g/dL (32.0-36.0) 11/02/24 05:42 RDW 23.6 % (12.1-15.2) H 11/02/24 05:42 Plt Count 363 thou/uL (152-406) 11/02/24 05:42 MPV 7.4 fL (7.6-11.3) L 11/02/24 05:42 Neutrophils % 65.6 % (41.7-73.7) 11/02/24 05:42 Lymphocytes % 16.7 % (15.3-44.8) 11/02/24 05:42 Monocytes % 13.1 % (3.3-12.3) H 11/02/24 05:42 Eosinophils % 3.4 % (0-4.4) 11/02/24 05:42 Basophils % 1.2 % (0-1.3) 11/02/24 05:42 Absolute Neutrophils 3.9 K/uL (1.8-8.0) 11/02/24 05:42 Absolute Lymphocytes 1.0 K/uL (0.7-4.9) 11/02/24 05:42 Absolute Monocytes 0.8 K/uL (0.1-1.3) 11/02/24 05:42 Absolute Eosinophils 0.2 K/uL (0-0.5) 11/02/24 05:42 Absolute Basophils 0.1 K/uL (0-0.5) 11/02/24 05:42 Platelet Estimate Adeq 11/02/24 05:42 Hypochromasia 1+ 10/29/24 04:37 Anisocytosis 2+ 11/02/24 05:42 Microcytosis 1+ 11/02/24 05:42 Ovalocytes Slight 11/02/24 05:42 Morphology Comment Noted (NOT SEEN) 11/02/24 05:42 Sodium 133 mEq/L (136-145) L 11/02/24 05:42 Potassium 3.9 mEq/L (3.5-5.1) 11/02/24 05:42 Chloride 95 mEq/L (98-107) L 11/02/24 05:42 Carbon Dioxide 34 mEq/L (21-32) H 11/02/24 05:42 Anion Gap 7.9 mEq/L (5.0-15.0) 11/02/24 05:42 BUN 32 mg/dL (7-18) H 11/02/24 05:42 Creatinine 1.39 mg/dL (0.70-1.30) H 11/02/24 05:42 Est GFR (CKD-EPI) 52 ml/min (=/>90) L 11/02/24 05:42 Glucose 123 mg/dL (74-106) H 11/02/24 05:42 POC Glucose 169 mg/dL (65-120) H 11/03/24 11:33 Calcium 8.3 mg/dL (8.5-10.1) L 11/02/24 05:42 Magnesium 2.3 mg/dL (1.6-2.4) 11/02/24 05:42 Albumin 2.5 g/dL (3.4-5.0) L 11/02/24 05:42 Prealbumin 6.3 mg/dL (20-40) L 11/02/24 05:42 Urine Color Yellow (Yellow) 10/28/24 21:30 Urine Clarity Turbid (Clear) H 10/28/24 21:30 Urine pH 5.0 (5.0-7.0) 10/28/24 21:30 Ur Specific [place] 1.016 (1.005-1.030) 10/28/24 21:30 Glucose (UA)(Auto) 2+ (Negative) H 10/28/24 21:30 Urine Ketones Negative (Negative) 10/28/24 21:30 Urine Blood 1+ (Negative) H 10/28/24 21:30 Urine Nitrite Negative (Negative) 10/28/24 21:30 Urine Bilirubin Negative (Negative) 10/28/24 21:30 Urine Urobilinogen Normal (Normal) 10/28/24 21:30 Ur Leukocyte Esterase Negative Elsa/uL (Negative) 10/28/24 21:30 Urine RBC <5 /HPF (None Seen) 10/28/24 21:30 Urine WBC <5 /HPF (<5) 10/28/24 21:30 Ur Squamous Epith Cells None seen /HPF (None Seen) 10/28/24 21:30 U Non-Squamous Epi Cells <5 /HPF (None Seen) 10/28/24 21:30 Urine Bacteria None seen /HPF (<20) 10/28/24 21:30 Hyaline Casts 0-5 /LPF (None Seen) 10/28/24 21:30 Urine Mucus Slight /HPF (None Seen) 10/28/24 21:30 Urine Culture Reflexed Not needed 10/28/24 21:30 Urine Total Protein 1+ (Negative) H 10/28/24 21:30 Smear Scan Ok (OK) 11/02/24 05:42 Weight: 195 lb Wound Present: Yes Closed Surgical Incision Present: No Negative Pressure Wound Therapy Present: No Physician Update: Labs reviewed and Na is low at 133. Stage III right and II left buttocks ulcers. [facility] to [facility] if he does not make more progress with all therapy. On 2L O2 with extended breaks needed. Loss of stool control. Min assist with transfers and showering. With PT, transfers SBA to supervision. RW 75' SBA. WC 60' with SBA. 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 Please see the Rehabilitation Signature page for all necessary signatures.
[2024-11-04] MEDS: SODIUM CHLORIDE 1 GM TAB PO SCH (08:36)
--- NOTE | 2024-11-04 19:00 | P.PN ---
Subjective Date of Service: 11/04/24 Mr. Collins was complaining of feeling exhausted after therapy today. He denies any pain or shortness of breath. Physical Examination - Vital Signs Temperature: 97.5 F Blood Pressure: 102/64 Pulse: 78 Respirations: 18 Pulse Ox (%): 99 Assessment And Plan - Plan Physical examination General: Alert and oriented x3, NAD, HEENT: Conjunctiva not pale, anicteric sclera Neck: Supple, no elevated JVD Heart: Heart sounds 1 and 2 normal, regular rhythm, normal rate, no pedal edema Lungs: Clear to auscultation bilaterally, adequate breath sounds bilaterally, no rhonchi or crackles. Abdomen: Soft, nondistended, nontender, normal bowel sounds. Extremities: No tenderness, no deformity Skin: Normal skin turgor, no rash, no nodules or ulcers. Neuro: No focal motor deficit. Normal speech. Psychiatry: Normal mood, no agitation. X-ray/imaging: No new imaging studies. Medications: Her medications have been reviewed today. Progress Made With Physical And Occupational Therapy: pt performed supine -> sit transfer Independently. pt able to don prosthetic independently. pt performed sit <-> stand from EoB Independently using a RW. pt performed repeated stand-pivot transfers from w/c <-> straightback chair Independently using a RW. pt took rest breaks in between. He performed this activity on room air. O2 saturation would drop to 87% immediately following activity, but would improve back >90% within 30 sec. At rest on room air, his O2 saturation was remaining around 94%. pt performed static standing balance activities at the RW. pt performed anticipatory balance activities and was instructed to reach for targets placed beyond Kathleen in all directions. pt would reach using bilateral UEs for targets and was encouraged to cross midline as well. pt performed this well. pt performed blue ball catch and throw while sitting anterior seat of w/c for sitting balance and trunk endurance. Emphasis on reaction time, sitting balance, coordination, and hand dexterity. pt participated in gait training 75'x2 and 90' Independently using a RW. pt did require a standing rest break during each length. Emphasis on upright posturing and proper gait mechanics. pt ascended and descended 5 stairs with SBA using bilateral HRs. pt completed sit <> stand IND and engaged in tabletop activity by grasping pegs and placing them in holes in standing for 3 mins on room air. pt became fatigued after 3 mins and was too fatigue to finish task. pt IND with W/C > EOB > supine transfer. pt completed therapy session on room air. O2 destated to 87%, but increase to 100% after approximately 4-minutes.. pt engaged in BUE Exercise with 2lb dowel alesia 4 x 12 while sitting EOB unsupp orted. multiple rest breaks required due to fatigue. pt completed exercise on 2L of O2. Assessment: Diagnosis: CHF myopathy Decreased mobility Plan: 1. Continue with physical, occupational, and speech therapy for 3.5 hours, 5 of 7 days. 2. She has multiple comorbid conditions and those are addressed by continuing all of her medications including medications for atrial fibrillation, orthostatic hypotension, hypothyroidism, diabetes mellitus. Patient also has orthostatic hypotension and receiving blood pressure support with oral midodrine and need close monitoring as well as orthostatic vitals monitoring. Comorbidities That Are Impacting Her Rehabilitation: Orthostatic hypotension. Atrial fibrillation
[2024-11-07 05:42] LABS: Absolute Lymphocytes (CBC) 1.0 K/uL (0.7-4.9); Hematocrit 30.1 % (39.6-49.0); Hemoglobin 9.4 g/dL (13.6-17.9); MCH 22.7 pg (27.0-35.0); MCHC 31.2 g/dL (32.0-36.0); MCV 72.7 fL (80-100); MPV 7.2 fL (7.6-11.3); Nucleated RBC Absolute Count 0.0 (0-0); Nucleated Red Blood Cells % 0.2 % (0-0); RBC Red Blood Cell Count 4.14 M/uL (4.33-5.43); White Blood Count 5.90 thou/uL (4.3-10.9)
[2024-11-07 06:03] LABS: Albumin 2.5 g/dL (3.4-5.0); Anion Gap 7.7 mEq/L (5.0-15.0); BUN Blood Urea Nitrogen 27.0 mg/dL (7-18); Glucose Level 286.0 mg/dL (74-106); Magnesium 2.1 mg/dL (1.6-2.4); Potassium 3.7 mEq/L (3.5-5.1); Prealbumin 8.3 mg/dL (20-40)
[2024-11-07] MEDS: SENOSIDES 8.6 MG TAB PO SCH (20:43)
--- NOTE | 2024-11-08 10:59 | PN ---
Date of Progress Note: 11/07/2024 Time Of Service: 1:30 p.m. Subjective: Mr. Collins is resting in bed. He is somewhat sleepy, but is still participating with ther apy. Denies any new complaints. Still has proximal weakness of upper and lower extremities. Objective: No fevers, chills, nausea, vomiting. No significant myalgias, arthralgias. Physical Examination: Vital Signs: Blood pressure 111/62, pulse 94, respiratory rate 18, temperature 97.9, oxygen saturati on 93%. General: Mr. Collins again is lying in bed in between therapy sessions, still has some difficulty in te michael of his mobilization. Seems to have poor energy, but says he will be cooperating with therapy and is working hard to improve. Laboratory Studies: White blood cell count 5.9, hemoglobin 9.4, platelets are 347. Sodium 136, pota ssium 3.7, chloride 100, carbon dioxide is 32, BUN 27, creatinine 1.31, his glucose ranged from 198 t o 244, calcium 8.1, magnesium 2.1, albumin 2.5, prealbumin 8.3. X-ray/imaging: No new x-rays or imaging. Medications: Have been reviewed and are unchanged. Progress Made With Physical And Occupational Therapy: With physical therapy today, he ambulated 80 f eet 3 times and 30 feet twice with standby assistance. Emphasis placed on upright posture and proper heel strike. Did require rest breaks leaning against the wall. Also ambulated another 40 feet 3 ti mes with a rolling walker. His oxygen saturation remained between 90% to 96% during therapy. With h is occupational therapy, independent with wkb-mc-[id number] transfers and transferring in the shower with grab bars, independent with bathing, upper body dressing, lower body dressing, and with footwear. Assessment And Plan: Mr. Collins is a 79-year-old patient in the rehabilitation with CHF myopathy, he h as proximal weakness of upper and lower extremities, making a slow but steady progress in terms of re covery. Still has decreased mobility, decreased physical functioning, diabetes mellitus, depression, orthostatic hypotension, atrial fibrillation, dyslipidemia. His plan will be to continue with his t herapy 3 hours a day, 5 of 7 days. He will continue with management of his comorbid conditions inclu ding Hemocyte for his anemia with iron deficiency, orthostatic hypotension addressed with midodrine. He has Megace for poor appetite up to 400 mg twice daily, hypothyroidism addressed with Cytomel, he has lactobacillus for probiotics to help with his GI bacterial alignment. He has guanfacine for coug h, Lasix for fluid management, Florinef for pressure support, ferrous sulfate again more for iron def iciency with his anemia, duloxetine for depression, Tessalon Perles for coughing. I will continue wi th his therapy as noted. LB/MODL Voice ID: [id number] Report ID: [id number]
[2024-11-08] MEDS ORDERED: INSULIN GLARGINE 100 UNIT/ML SQ ONE (20:38)
[2024-11-08] MEDS: INSULIN GLARGINE 100 UNIT/ML SQ SCH (20:39)
--- NOTE | 2024-11-09 02:10 | PN ---
Date of Progress Note: 11/08/2024 Time: Subjective: Mr. Collins is sitting in chair beside bed. He is feeling slightly better today, morning h eadache, but still has significant ways to go. improved properly. has been ex tended towards the end of the week to help him improve further with the plan of being able to go home and resume therapy via Home Health. Objective: No fevers, chills, mild myalgias, arthralgias, or lytic changes in his hands noted. He h as, of course, proximal weakness in upper and lower extremities from his CHF myopathy and incentive s pirometry is strongly encouraged on a daily basis. Physical Examination: Vital Signs: Blood pressure is 100/64, pulse 86, respiratory rate 18, temperature 97.6, oxygen satur ation 94%. General: Mr. Collins is resting comfortably, in no significant distress. HEENT: He is normocephalic, atraumatic. Sclerae anicteric. Oropharynx pink and moist. movement. Abdomen: Soft. Extremities: No edema noted in the extremities. Laboratory Data: Blood sugars today ranged from 244 to 292. In terms of laboratory studies, given t he patient's elevated blood sugars, as noted above, his insulin will be increased from Humalog Glargi ne, insulin 10 units subcutaneously twice daily to 13 units subcutaneous twice daily. Medications: His other medications will continue unchanged. He will continue his Flomax, thiamine r eplacement, tramadol, zinc, sotalol. He is on 1 g of sodium daily for attention of low sodium. He h as Xarelto for atrial fibrillation. He has midodrine for pressure support, Megace for poor appetite, guanfacine for cough. He has Farxiga onboard for sugar control, duloxetine for neuropathic pain con trol and depression, cranberry extract and urinary tract infection prophylaxis medications also uma nued. Progress Made With Physical, Occupational, And Speech Therapy: With physical therapy today, he did a mbulate 170 feet and 90 feet with supervision to modified independence with a rolling walker. Wheelc hair mobilization 325 feet and 50 feet with modified independence. Kxb-ri-bfnod and ecoja-jv-jpokd t ransfers done independently, completed toilet transfers independently, toileting management done inde pendently. With occupational therapy, self-propelled from wheelchair to the gym with independence. Also, bilateral upper extremity exercises done with 2-pound TheraBall and 4 x 12 sets of exercises wi th Assessment: Mr. Collins is a 79-year-old patient in rehabilitation unit with congestive heart failure m yopathy. He still has some mild decreased mobility, decreased physical function which has improved s ignificantly and is ready for discharge later in the week. He can go home and resume therapy via [email or web address]. He still has multiple comorbid conditions, which have been noted including orthostatic hyp otension addressed with midodrine and Florinef. He has Proscar for urinary outflow tract obstruction s and his wounds, and he has received insulin on board, Cytomel for hypothyroidism, Imodiu m for constipation, magnesium oxide for muscle relaxation, Megace for poor appetite, melatonin for in somnia, midodrine as noted. He has Hemocyte Plus for atrial fibrillation, Crestor for dys lipidemia. Plan: Again, continue his physical and occupational therapy 3 hours a day, 5 to 7 days. A list of c omorbid condition medications will be continued as noted above. Incentive spirometry is strongly enc ouraged. Again, plan to go home with [facility] this Thursday. ELIZABETH/FRANCY Voice ID: [id number] Report ID: [id number]
[2024-11-09] MEDS: SIMETHICONE 80 MG CHEWABLE TAB PO PRN (06:38)
[2024-11-09] MEDS: INSULIN GLARGINE 100 UNIT/ML SQ SCH (09:11)
[2024-11-09 21:47] VITALS: O2SAT 97
--- NOTE | 2024-11-10 02:45 | PN ---
Date of Progress Note: 11/09/2024 Time Of Service: 1:40 p.m. Subjective: Mr. Collins is mobilizing in the unit. He is feeling better about his ability to ambulate and feeling stronger, more endurance, less shortness of breath, but still somewhat slow as he mobiliz es. Objective: He denies any fevers, chills, nausea, vomiting, myalgias, arthralgias. Physical Examination: Vital Signs: Blood pressure 106/51, pulse 94, respiratory rate 18, temperature 98.1, oxygen saturati on 94%. General: Mr. Collins again is mobilizing with a rolling walker with gait belt and wheelchair and tow. The patient is doing well as he mobilizes. No new deficits. Laboratory Studies: He has no new laboratory studies except blood glucose ranging from 148 to 201. X-ray Imaging: No new x-rays or imaging. Medications: Medications have been reviewed and are unchanged. Progress Made With Physical, Occupational, And Speech Therapy: With physical therapy today, he was a ble to ambulate 150 feet and 100 feet and continue standby assistance to supervision with a rolling w alker, still have somewhat unsteady gait. His right leg prosthesis was smoothed with steppage height and he did also work on going up and down 15 steps independently and completed wheelchair mobilizati on later on 250 feet and 50 feet twice independently and much improved. In the afternoon, completed gait training 220 feet and 40 feet 5 times with a rolling walker and modified independence. Sit-to-s tand by assistance level was tried at the end of his workout session. Assessment: Mr. Collins is a 79-year-old patient with CHF myopathy, from which he is improving well. H e is point ready for discharge next day. He still has mild decreased mobility, decrease in physical functioning, but that has improved significantly. His neuropathic pain and depression consistently i mproved. His cough has improved. For his fluid management, he is doing well with Lasix. Diabetes, continue with glipizide and gently insulin. There are issues with thyroid function, adjusted with Cy tomel. Imodium for constipation. Megace for poor appetite. Melatonin for insomnia. Midodrine for orthostatic hypotension. Xarelto for stroke risk reduction with DVT. Crestor for dyslipidemia. He still has Betapace for heart rate control, spironolactone on board as well as Flomax. Plan: His plan is to continue with physical and occupational therapy 3 hours a day, 5 of 7 days. Co ntinue his list of medications for comorbid conditions will be addressed and he is going to be discha rged in 2 days. ELIZABETH/FRANCY Voice ID: [id number] Report ID: [id number]
[2024-11-10 05:59] LABS: Absolute Lymphocytes (CBC) 0.9 K/uL (0.7-4.9); Hematocrit 30.1 % (39.6-49.0); Hemoglobin 9.4 g/dL (13.6-17.9); MCH 23.1 pg (27.0-35.0); MCHC 31.1 g/dL (32.0-36.0); MCV 74.2 fL (80-100); MPV 7.5 fL (7.6-11.3); Nucleated RBC Absolute Count 0.0 (0-0); Nucleated Red Blood Cells % 0.2 % (0-0); RBC Red Blood Cell Count 4.05 M/uL (4.33-5.43); White Blood Count 6.00 thou/uL (4.3-10.9)
[2024-11-10 06:27] LABS: Albumin 2.8 g/dL (3.4-5.0); Anion Gap 7.9 mEq/L (5.0-15.0); BUN Blood Urea Nitrogen 30.0 mg/dL (7-18); Glucose Level 198.0 mg/dL (74-106); Magnesium 2.2 mg/dL (1.6-2.4); Potassium 3.9 mEq/L (3.5-5.1); Prealbumin 9.0 mg/dL (20-40)
--- NOTE | 2024-11-10 13:20 | P.RH.PN ---
Estimated Length of Stay: 13 Expected Discharge Date: 11/11/24 Discharge Disposition Plan: Home Family Support: Yes [facility] Goal: Mobility, Transfers, Self Care Vital Signs: Last Vital Signs Temp 97.9 F 11/10/24 06:50 Pulse 96 H 11/10/24 06:50 Resp 20 11/10/24 06:50 BP 104/69 11/10/24 06:50 Pulse Ox 97 11/10/24 06:50 Laboratory: Laboratory Last Values WBC 6.00 thou/uL (4.3-10.9) 11/10/24 05:27 RBC 4.05 M/uL (4.33-5.43) L 11/10/24 05:27 Hgb 9.4 g/dL (13.6-17.9) L 11/10/24 05:27 Hct 30.1 % (39.6-49.0) L 11/10/24 05:27 MCV 74.2 fL (80-100) L 11/10/24 05:27 MCH 23.1 pg (27.0-35.0) L 11/10/24 05:27 MCHC 31.1 g/dL (32.0-36.0) L 11/10/24 05:27 RDW 26.6 % (12.1-15.2) H 11/10/24 05:27 Plt Count 335 thou/uL (152-406) 11/10/24 05:27 MPV 7.5 fL (7.6-11.3) L 11/10/24 05:27 Neutrophils % 68.1 % (41.7-73.7) 11/10/24 05:27 Lymphocytes % 14.5 % (15.3-44.8) L 11/10/24 05:27 Monocytes % 13.7 % (3.3-12.3) H 11/10/24 05:27 Eosinophils % 3.0 % (0-4.4) 11/10/24 05:27 Basophils % 0.7 % (0-1.3) 11/10/24 05:27 Absolute Neutrophils 4.1 K/uL (1.8-8.0) 11/10/24 05:27 Absolute Lymphocytes 0.9 K/uL (0.7-4.9) 11/10/24 05:27 Absolute Monocytes 0.8 K/uL (0.1-1.3) 11/10/24 05:27 Absolute Eosinophils 0.2 K/uL (0-0.5) 11/10/24 05:27 Absolute Basophils 0.0 K/uL (0-0.5) 11/10/24 05:27 Platelet Estimate Adeq 11/02/24 05:42 Hypochromasia 1+ 10/29/24 04:37 Anisocytosis 2+ 11/02/24 05:42 Microcytosis 1+ 11/02/24 05:42 Ovalocytes Slight 11/02/24 05:42 Morphology Comment Noted (NOT SEEN) 11/02/24 05:42 Sodium 136 mEq/L (136-145) 11/10/24 05:27 Potassium 3.9 mEq/L (3.5-5.1) 11/10/24 05:27 Chloride 102 mEq/L (98-107) 11/10/24 05:27 Carbon Dioxide 30 mEq/L (21-32) 11/10/24 05:27 Anion Gap 7.9 mEq/L (5.0-15.0) 11/10/24 05:27 BUN 30 mg/dL (7-18) H 11/10/24 05:27 Creatinine 1.34 mg/dL (0.70-1.30) H 11/10/24 05:27 Est GFR (CKD-EPI) 55 ml/min (=/>90) L 11/10/24 05:27 Glucose 198 mg/dL (74-106) H 11/10/24 05:27 POC Glucose 165 mg/dL (65-120) H 11/10/24 11:14 Calcium 8.1 mg/dL (8.5-10.1) L 11/10/24 05:27 Magnesium 2.2 mg/dL (1.6-2.4) 11/10/24 05:27 Albumin 2.8 g/dL (3.4-5.0) L 11/10/24 05:27 Prealbumin 9.0 mg/dL (20-40) L 11/10/24 05:27 Urine Color Yellow (Yellow) 10/28/24 21:30 Urine Clarity Turbid (Clear) H 10/28/24 21:30 Urine pH 5.0 (5.0-7.0) 10/28/24 21:30 Ur Specific [place] 1.016 (1.005-1.030) 10/28/24 21:30 Glucose (UA)(Auto) 2+ (Negative) H 10/28/24 21:30 Urine Ketones Negative (Negative) 10/28/24 21:30 Urine Blood 1+ (Negative) H 10/28/24 21:30 Urine Nitrite Negative (Negative) 10/28/24 21:30 Urine Bilirubin Negative (Negative) 10/28/24 21:30 Urine Urobilinogen Normal (Normal) 10/28/24 21:30 Ur Leukocyte Esterase Negative Elas/uL (Negative) 10/28/24 21:30 Urine RBC <5 /HPF (None Seen) 10/28/24 21:30 Urine WBC <5 /HPF (<5) 10/28/24 21:30 Ur Squamous Epith Cells None seen /HPF (None Seen) 10/28/24 21:30 U Non-Squamous Epi Cells <5 /HPF (None Seen) 10/28/24 21:30 Urine Bacteria None seen /HPF (<20) 10/28/24 21:30 Hyaline Casts 0-5 /LPF (None Seen) 10/28/24 21:30 Urine Mucus Slight /HPF (None Seen) 10/28/24 21:30 Urine Culture Reflexed Not needed 10/28/24 21:30 Urine Total Protein 1+ (Negative) H 10/28/24 21:30 Smear Scan Ok (OK) 11/02/24 05:42 Weight: 195 lb Wound Present: Yes Closed Surgical Incision Present: No Negative Pressure Wound Therapy Present: No Physician Update: Labs showed improved prealbumin to 9. Pressure injury stage III on left leg and right stage II proximal lower extremity. Independent bed mob ility, car transfers, RW 250' with mod I, 15 stairs with Mod I. Independent with ADLs. 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 Please see the Rehabilitation Signature page for all necessary signatures.
[2024-11-11] MEDS: SOTALOL HCL 80 MG TAB PO SCH (07:04)
[2024-11-11 08:52] VITALS: TEMP 97.3
[2024-11-11 08:53] VITALS: BP 105/68
== END 2024-11-11 11:05 | disposition home health service (06) | DRG 91 ==
LOC: 5TH 10-28 13:40
PROVIDERS: ADMIT Psychiatry & Neurology Neurology with Special Qualifications in Child Neurology; ATTEND Psychiatry & Neurology Neurology with Special Qualifications in Child Neurology
DX: G72.89 Other specified myopathies (principal); L89.893 Pressure ulcer of other site, stage 3; E44.1 Mild protein-calorie malnutrition; I13.0 Hypertensive heart and chronic kidney disease with heart failure and stage 1 through stage 4 chronic kidney disease, or unspecified chronic kidney disease; I50.22 Chronic systolic (congestive) heart failure; E46 Unspecified protein-calorie malnutrition; N13.8 Other obstructive and reflux uropathy; E11.22 Type 2 diabetes mellitus with diabetic chronic kidney disease; N18.30 Chronic kidney disease, stage 3 unspecified; R53.1 Weakness; R53.81 Other malaise; R53.83 Other fatigue; I25.10 Atherosclerotic heart disease of native coronary artery without angina pectoris; I48.91 Unspecified atrial fibrillation; E03.9 Hypothyroidism, unspecified; K21.9 Gastro-esophageal reflux disease without esophagitis; E78.5 Hyperlipidemia, unspecified; I25.2 Old myocardial infarction; F32.A Depression, unspecified; R05.9 Cough, unspecified; L89.892 Pressure ulcer of other site, stage 2; N40.1 Benign prostatic hyperplasia with lower urinary tract symptoms; R33.8 Other retention of urine; C61 Malignant neoplasm of prostate; I95.1 Orthostatic hypotension; D50.9 Iron deficiency anemia, unspecified; K59.00 Constipation, unspecified; G47.00 Insomnia, unspecified; Z89.512 Acquired absence of left leg below knee; Z95.1 Presence of aortocoronary bypass graft; Z79.01 Long term (current) use of anticoagulants
CPT/HCPCS: 36415; 74018; 80048; 81001; 82040; 82947; 83735; 84134; 85025; 94640; 97110; 97112; 97116; 97161; 97165; 97530; 97542; J1815; J3420; J3590; J7613; P9047; Q0162

== ENCOUNTER 2024-11-14 06:04 | Inpatient (IN) | payer BC, OTHER ==
[2024-11-14 06:43] LABS: Absolute Lymphocytes (CBC) 0.9 K/uL (0.7-4.9); Hematocrit 31.0 % (39.6-49.0); Hemoglobin 9.6 g/dL (13.6-17.9); MCH 23.7 pg (27.0-35.0); MCHC 31.1 g/dL (32.0-36.0); MCV 76.1 fL (80-100); MPV 7.3 fL (7.6-11.3); Nucleated RBC Absolute Count 0.0 (0-0); Nucleated Red Blood Cells % 0.1 % (0-0); RBC Red Blood Cell Count 4.07 M/uL (4.33-5.43); White Blood Count 7.60 thou/uL (4.3-10.9)
[2024-11-14] MEDS ORDERED: FUROSEMIDE 40 MG/4 ML VIAL ONE (06:48)
[2024-11-14 06:49] LABS: PT Prothrombin Time 46.2 SECONDS (10-13.0); Protime INR 4.26
[2024-11-14 07:04] LABS: Influenza A Ag Negative; Influenza B Ag Negative; SARS-CoV-2 Antigen Rapid Res Negative (Negative)
[2024-11-14 07:24] LABS: ALT/SGPT 25.0 U/L (16-61); AST/SGOT 29.0 U/L (15-37); Albumin 2.7 g/dL (3.4-5.0); Albumin/Globulin Ratio 0.8 (1.1-1.8); Alkaline Phosphatase 98.0 U/L (45-117); Anion Gap 8.9 mEq/L (5.0-15.0); BUN Blood Urea Nitrogen 39.0 mg/dL (7-18); Bilirubin Indirect, Calculated 0.5 mg/dL (0.2-0.8); Globulin 3.4 g/dL (2.3-3.5); Lipase 47.0 U/L (13-75); Magnesium 2.3 mg/dL (1.6-2.4); NT PRO-BNP 21188.0 pg/mL (<450); Potassium 4.9 mEq/L (3.5-5.1); Troponin High Sensitivity 63.5 pg/mL (<58.9)
[2024-11-14 07:28] LABS: Glucose Level 426.0 mg/dL (74-106)
--- NOTE | 2024-11-14 07:40 | RAD REPORT ---
Procedure: Chest Single View HISTORY: Cough COMPARISON: October 23, 2024 FINDINGS: Mild bilateral pulmonary opacities No significant pleural effusion noted. The heart is markedly enlarged. Post surgical changes involve the chest. IMPRESSION: These findings likely indicate mild CHF
--- NOTE | 2024-11-14 07:56 | EDPHYS ---
Physician Documentation [facility] Name: Navjot Collins Age: 79 yrs Sex: Male : 1945 Arrival Date: 11/14/2024 Time: 06:04 Bed 6 Private MD: ED Physician Diogo Jacobo HPI: 11/14 06:19 This 79 yrs old Male presents to ER via EMS with complaints of Shortness Of laila Breath. 06:19 The patient has shortness of breath at rest, with light activity. Onset: The laila symptoms/episode began/occurred 1 day(s) ago. Duration: The symptoms are continuous, and are steadily getting worse. The patient's shortness of breath has no apparent modifying factors. Associated signs and symptoms: Pertinent positives: non-productive cough. Severity of symptoms: At their worst the symptoms were moderate in the emergency department the symptoms are unchanged. The patient has experienced similar episodes in the past, several times. Historical: - Allergies: 06:18 Codeine; cp4 06:18 Demerol; cp4 06:18 fedrazil; cp4 06:18 hydrocodone bitartrate; cp4 06:18 Vicodin; cp4 - PMHx: 06:18 Atrial Fib; CAD; CHF; Diabetes - IDDM; HTN; PROSTATE CA; Right foot wound with wound cp4 vac in place (Unknown); - PSHx: 06:18 Bladder; Coronary artery bypass graft; Left BKA; prostate; Stented artery; cp4 - Immunization history:: Adult Immunizations up to date. - Infectious Disease History:: Denies. - Social history:: Smoking status: Patient denies any tobacco usage or history of. ROS: 06:19 Constitutional: Negative for fever, chills, and weight loss, Eyes: Negative for injury, laila pain, redness, and discharge, ENT: Negative for injury, pain, and discharge, Neck: Negative for injury, pain, and swelling, Cardiovascular: Negative for chest pain, palpitations, and edema, Abdomen/GI: Negative for abdominal pain, nausea, vomiting, diarrhea, and constipation, Back: Negative for injury and pain, : Negative for injury, bleeding, discharge, and swelling, MS/Extremity: Negative for injury and deformity, Skin: Negative for injury, rash, and discoloration, Neuro: Negative for headache, weakness, numbness, tingling, and seizure, Psych: Negative for depression, anxiety, suicide ideation, homicidal ideation, and hallucinations, Allergy/Immunology: Negative for hives, rash, and allergies, Endocrine: Negative for neck swelling, polydipsia, polyuria, polyphagia, and marked weight changes, Hematologic/Lymphatic: Negative for swollen nodes, abnormal bleeding, and unusual bruising, 06:19 Respiratory: Positive for cough, "sounds productive", dyspnea on exertion, orthopnea, shortness of breath, on exertion. 06:19 MS/extremity: Positive for decreased range of motion, pain, left bka, Exam: 06:19 Constitutional: This is a well developed, well nourished patient who is awake, alert, laila and in no acute distress. Head/Face: Normocephalic, atraumatic. Eyes: Pupils equal round and reactive to light, extra-ocular motions intact. Lids and lashes normal. Conjunctiva and sclera are non-icteric and not injected. Cornea within normal limits. Periorbital areas with no swelling, redness, or edema. ENT: Nares patent. No nasal discharge, no septal abnormalities noted. Tympanic membranes are normal and external auditory canals are clear. Oropharynx with no redness, swelling, or masses, exudates, or evidence of obstruction, uvula midline. Mucous membranes moist. Neck: Trachea midline, no thyromegaly or masses palpated, and no cervical lymphadenopathy. Supple, full range of motion without nuchal rigidity, or vertebral point tenderness. No Meningismus. Chest/axilla: Normal chest wall appearance and motion. Nontender with no deformity. No lesions are appreciated. Respiratory: Lungs have equal breath sounds bilaterally, clear to auscultation and percussion. No rales, rhonchi or wheezes noted. No increased work of breathing, no retractions or nasal flaring. Abdomen/GI: Soft, non-tender, with normal bowel sounds. No distension or tympany. No guarding or rebound. No evidence of tenderness throughout. Back: No spinal tenderness. No costovertebral tenderness. Full range of motion. Male : Normal genitalia with no discharge or lesions. Neuro: Awake and alert, GCS 15, oriented to person, place, time, and situation. Cranial nerves II-XII grossly intact. Motor strength 5/5 in all extremities. Sensory grossly intact. Cerebellar exam normal. Normal gait. Psych: Awake, alert, with orientation to person, place and time. Behavior, mood, and affect are within normal limits. 06:19 Cardiovascular: Rate: normal, actual rate is 85 bpm, Rhythm: regular, Pulses: Pulses are 4+ in bilateral radial, brachial, femoral, popliteal, posterior tibial and and dorsalis pedis arteries.. Heart sounds: murmur, systolic, Edema: 3+ edema to level of right midcalf, JVD: is noted bilaterally, to the angle of the jaw, 06:19 ECG was reviewed by the Attending Physician. 06:35 ECG was reviewed by the Attending Physician. [facility] Vital Signs: 06:16 BP 106 / 64; Pulse 85; Resp 18; Temp 98.1; Pulse Ox 99% ; Weight 88.45 kg; Height 6 ft. cp4 1 in. ; Pain 0/10; 08:00 BP 108 / 71; Pulse 84; Resp 15; Pulse Ox 99% ; hb 09:00 BP 98 / 57; Pulse 86; Resp 17; Pulse Ox 98% on R/A; hb 10:00 BP 120 / 82; Pulse 90; Resp 16; Pulse Ox 99% on R/A; hb 06:16 Body Mass Index 25.73 (88.45 kg, 185.42 cm) cp4 06:16 Pain Scale: Adult cp4 MDM: 06:11 Medical Screening Exam initiated [facility] 06:35 Differential diagnosis: Anemia Anxiety Reaction asthma, Bronchitis CHF exacerbation, laila Chronic Obstructive Pulmonary Disease Myocardial Infarction Psychogenic pulmonary edema, Pulmonary Embolism reactive airway disease, Sepsis Unstable Angina. Antibiotic administration: Not indicated. Differential Diagnosis altered mental status, sepsis. Immunization status: Pneumococcal vaccine: Influenza vaccine:. Data reviewed: vital signs, nurses notes, EMS record, lab test result(s), EKG, radiologic studies, plain films. Consideration of Admission/Observation Patient was admitted/placed on observation. Escalation of care including admission/observation considered. I considered the following discharge prescriptions or medication management in the emergency department Medications were administered in the Emergency Department. See MAR. Independent interpretation of the following test(s) in the Emergency Department EKG: See my EKG interpretation above. Test considered but Not performed: Ultrasound no 2 d echo in er. 07:31 Transition of care: Care assumed from Davon Arredondo MD. ED course: Patient care and ms3 report received from Dr. Arredondo at 7 AM. Patient presenting for shortness of breath that began this morning. Patient states he did not sleep well overnight. Labs pending. 07:56 Management of patient was discussed with the following: Hospitalist: Hospitalist, Dr santoro3 Jeremie. Counseling: I had a detailed discussion with the patient and/or guardian regarding the historical points, exam findings, and any diagnostic results supporting the discharge/admit diagnosis, lab results, radiology results, the need for further work-up and treatment in the hospital. 11/14 06:13 Order name: Basic Metabolic Panel; Complete Time: 07:48 laila 11/14 06:13 Order name: CBC with Diff [facility] 11/14 06:13 Order name: LFT's; Complete Time: 07:48 [facility] 11/14 06:13 Order name: Magnesium; Complete Time: 07:48 [facility] 11/14 06:13 Order name: NT PRO-BNP; Complete Time: 07:48 [facility] 11/14 06:13 Order name: PT-INR; Complete Time: 07:07 laila 11/14 06:13 Order name: Troponin HS; Complete Time: 07:48 [facility] 11/14 06:13 Order name: COVID-19 Ag + Flu A+B Ag; Complete Time: 07:07 laila 11/14 06:13 Order name: UA Rfx Stephen Cult if indicated [facility] 11/14 06:13 Order name: Lipase; Complete Time: 07:48 [facility] 11/14 08:45 Order name: Magnesium EDMS 11/14 08:45 Order name: Phosphorus EDMS 11/14 08:45 Order name: T4 Free EDMS 11/14 08:45 Order name: Thyroid Stimulating Hormone EDMS 11/14 08:45 Order name: Basic Metabolic Panel EDMS 11/14 08:45 Order name: Basic Metabolic Panel EDMS 11/14 08:45 Order name: CBC with Automated Diff EDMS 11/14 08:45 Order name: CBC with Automated Diff EDMS 11/14 08:45 Order name: NT PRO-BNP EDMS 11/14 08:46 Order name: NT PRO-BNP EDMS 11/14 08:46 Order name: Troponin High Sensitivity EDMS 11/14 08:46 Order name: Troponin High Sensitivity EDMS 11/14 08:46 Order name: Troponin High Sensitivity EDMS 11/14 08:50 Order name: CBC Smear Scan EDMS 11/14 11:24 Order name: Glucose, Ancillary Testing [facility] 11/14 12:59 Order name: Glucose, Ancillary Testing [facility] 11/14 06:13 Order name: XRAY Chest (1 view); Complete Time: 07:48 [facility] 11/14 08:41 Order name: CONS Physician Consult [facility] 11/14 06:13 Order name: Cardiac monitoring; Complete Time: 06:46 [facility] 11/14 06:13 Order name: EKG - Nurse/Tech; Complete Time: 06:46 [facility] 11/14 06:13 Order name: IV Saline Lock; Complete Time: 06:46 [facility] 11/14 06:13 Order name: Labs collected and sent; Complete Time: 06:46 [facility] 11/14 06:13 Order name: O2 Per Protocol; Complete Time: 06:46 [facility] 11/14 06:13 Order name: O2 Sat Monitoring; Complete Time: 06:46 [facility] EC:35 Rate is 83 beats/min. Rhythm is regular. QRS [place] is Normal. CT interval is normal. QRS laila interval is normal. QT interval is normal. No Q waves. T waves are Normal. ST Segment is depressed in leads II, III, aVF, V6. Clinical impression: NSR w/ Non-specific ST/T Changes. Administered Medications: 06:18 Discontinued: ns 0.9% 500 ml 500 ml IV at 125 ml/hr once; to be given as a bolus over laila 30 minutes 06:15 Drug: NS 0.9% IV 500 ml 500 ml IV at 125 ml/hr once; to be given as a bolus over 30 cp4 minutes Volume: 500 ml; Route: IV; Rate: 125 ml/hr; Site: left wrist; 06:46 Follow up: IV Status: Completed infusion cp4 06:59 Drug: Furosemide IVP 40 mg IVP once; give over 2 minutes Route: IVP; Site: left wrist; cp4 09:43 Drug: Insulin Regular Human Sub-Q 10 units Sub-Q once {Co-Signature: hb (katie Ward RN).} Route: Sub-Q; Site: left upper arm; Disposition Summary: 11/14/24 07:56 Hospitalization Ordered Notes: Hospitalization Status: Inpatient Admission ms3 Provider: Maris Chao ms3 Condition: Stable ms3 Problem: new ms3 Symptoms: are unchanged ms3 Bed/Room Type: Standard ms3 Location: Telemetry/MedSurg (Inpatient)(11/14/24 12:20) bd Room Assignment: 427(11/14/24 12:40) bd Diagnosis - Heart failure, unspecified ms3 - Hyperglycemia, unspecified ms3 - Hypocalcemia ms3 - Elevated Troponin ms3 - Anemia, unspecified ms3 Forms: - Medication Reconciliation Form ms3 - SBAR form ms3 - Leadership Thank You Letter ms3 Signatures: Dispatcher [employer] EDMS Ariadna Huntley Corey, MD MD cha Sims, Marcus, DO DO ms3 Melanie Kendrick RN RN cm10 Laura Edwards cp4 Tisha Ward RN Corrections: (The following items were deleted from the chart) 06:14 06:14 BASIC METABOLIC PANEL+C.LAB.BRZ ordered. EDMS EDMS 06:14 06:14 CBC+H.LAB.BRZ ordered. EDMS EDMS 06:14 06:14 HEPATIC FUNCTION+C.LAB.BRZ ordered. EDMS EDMS 06:14 06:14 MAGNESIUM+C.LAB.BRZ ordered. EDMS EDMS 06:14 06:14 PROBNP+C.LAB.BRZ ordered. EDMS EDMS 06:14 06:14 PROTIME (+INR)+COAG.LAB.BRZ ordered. EDMS EDMS 06:14 06:14 Troponin High Sensitivity+C.LAB.BRZ ordered. EDMS EDMS 06:14 06:14 COVID-19 Ag + Flu A+B Ag+I.LAB.BRZ ordered. EDMS EDMS 06:14 06:14 UA Rfx Stephen Cult if indicated+U.LAB.BRZ ordered. EDMS EDMS 06:14 06:14 LIPASE+C.LAB.BRZ ordered. EDMS EDMS 06:14 06:14 Chest Single View+RAD.RAD.BRZ ordered. EDMS EDMS 11:07 07:56 Telemetry/MedSurg (Inpatient) ms3 bd 11:07 07:56 ms3 bd 12:20 11:07 [facility] ER HOLD bd bd 12:20 11:07 ERHOLD- bd bd 12:40 12:20 419 bd bd
--- NOTE | 2024-11-14 07:56 | ER ---
Nurse's Notes [facility] Name: Navjot Collins Age: 79 yrs Sex: Male : 1945 Arrival Date: 11/14/2024 Time: 06:04 Bed 6 Private MD: Diagnosis: Heart failure, unspecified;Hyperglycemia, unspecified;Hypocalcemia;Elevated Troponin;Anemia, unspecified Presentation: 11/14 06:16 Chief complaint: EMS states: shortness of breath that started this morning but has cp4 since resolved. EMS reports BGL 380. Coronavirus screen: Client denies travel out of the [place] in the last 14 days. At this time, the client does not indicate any symptoms associated with coronavirus-19. Ebola Screen: Patient negative for fever greater than or equal to 101.5 degrees Fahrenheit, and additional compatible Ebola Virus Disease symptoms Patient denies exposure to infectious person. Patient denies travel to an Ebola-affected area in the 21 days before illness onset. No symptoms or risks identified at this time. Initial Sepsis Screen: Does the patient meet any 2 criteria? No. Patient's initial sepsis screen is negative. Does the patient have a suspected source of infection? No. Patient's initial sepsis screen is negative. Risk Assessment: Do you want to hurt yourself or someone else? Patient reports no desire to harm self or others. Onset of symptoms was November 14, 2024. 06:16 Method Of Arrival: EMS: [facility] cp4 06:16 Acuity: ZENAIDA 3 cp4 Triage Assessment: 06:18 General: Appears in no apparent distress. comfortable, Behavior is calm, cooperative, cp4 appropriate for age. Pain: Denies pain. EENT: No signs and/or symptoms were reported regarding the EENT system. Neuro: Level of Consciousness is awake, alert, obeys commands, Oriented to person, place, time, situation. Cardiovascular: Patient's skin is warm and dry. Respiratory: Reports shortness of breath at rest Airway is patent Respiratory effort is even, unlabored, Breath sounds are clear bilaterally. Onset: The symptoms/episode began/occurred this morning, the patient has mild shortness of breath. GI: No signs and/or symptoms were reported involving the gastrointestinal system. : No signs and/or symptoms were reported regarding the genitourinary system. Derm: No signs and/or symptoms reported regarding the dermatologic system. Musculoskeletal: No signs and/or symptoms reported regarding the musculoskeletal system. Historical: - Allergies: 06:18 Codeine; cp4 06:18 Demerol; cp4 06:18 fedrazil; cp4 06:18 hydrocodone bitartrate; cp4 06:18 Vicodin; cp4 - PMHx: 06:18 Atrial Fib; CAD; CHF; Diabetes - IDDM; HTN; PROSTATE CA; Right foot wound with wound cp4 vac in place (Unknown); - PSHx: 06:18 Bladder; Coronary artery bypass graft; Left BKA; prostate; Stented artery; cp4 - Immunization history:: Adult Immunizations up to date. - Infectious Disease History:: Denies. - Social history:: Smoking status: Patient denies any tobacco usage or history of. Screenin:44 [facility] ED Fall Risk Assessment (Adult) History of falling in the last 3 months, cp4 including since admission No falls in past 3 months (0 pts) Confusion or Disorientation No (0 pts) Intoxicated or Sedated No (0 pts) Impaired Gait No (0 pts) Mobility Assist Device Used No (0 pt) Altered Elimination No (0 pt) Score/Fall Risk Level 0 - 2 = Low Risk Oriented to surroundings, Maintained a safe environment, Assessed \T\ reinforced patient's understanding of fall precautions, Hourly rounding (assess needs \T\ fall precautionary measures) done. Abuse screen: Denies threats or abuse. Denies injuries from another. Nutritional screening: No deficits noted. Tuberculosis screening: No symptoms or risk factors identified. Assessment: 06:23 Pain: Denies pain. Cardiovascular: Rhythm is. cp4 06:44 Cardiovascular: Rhythm is atrial fibrillation. Respiratory: Airway is patent cp4 Respiratory effort is even, unlabored, Breath sounds are clear bilaterally. 07:30 General: Appears in no apparent distress. Behavior is calm, cooperative. Pain: Denies hb pain. Neuro: Level of Consciousness is awake, alert, obeys commands, Oriented to person, place, time, situation. Cardiovascular: Patient's skin is warm and dry. Respiratory: Respiratory effort is even, unlabored, Respiratory pattern is regular, symmetrical. GI: No signs and/or symptoms were reported involving the gastrointestinal system. : No signs and/or symptoms were reported regarding the genitourinary system. EENT: No signs and/or symptoms were reported regarding the EENT system. Derm: Skin is pink, warm \T\ dry. Musculoskeletal: No signs and/or symptoms reported regarding the musculoskeletal system. 08:45 Reassessment: Patient appears in no apparent distress at this time. No changes from hb previously documented assessment. Patient and/or family updated on plan of care and expected duration. Pain level reassessed. 10:05 Reassessment: Patient appears in no apparent distress at this time. No changes from hb previously documented assessment. Patient and/or family updated on plan of care and expected duration. Pain level reassessed. Vital Signs: 06:16 BP 106 / 64; Pulse 85; Resp 18; Temp 98.1; Pulse Ox 99% ; Weight 88.45 kg; Height 6 ft. cp4 1 in. ; Pain 0/10; 08:00 BP 108 / 71; Pulse 84; Resp 15; Pulse Ox 99% ; hb 09:00 BP 98 / 57; Pulse 86; Resp 17; Pulse Ox 98% on R/A; hb 10:00 BP 120 / 82; Pulse 90; Resp 16; Pulse Ox 99% on R/A; hb 06:16 Body Mass Index 25.73 (88.45 kg, 185.42 cm) cp4 06:16 Pain Scale: Adult cp4 ED Course: 06:05 Patient arrived in ED. [email or web address] 06:11 Davon Arredondo MD is Attending Physician. laila 06:17 Triage completed. cp4 06:18 Arm band placed on right wrist. Patient placed in an exam room, on a stretcher. cp4 06:44 Laura Edwards is Primary Nurse. cp4 06:44 Bed in low position. Call light in reach. Side rails up X2. cp4 06:44 No provider procedures requiring assistance completed. Maintain EMS IV. Dressing cp4 intact. Good blood return noted. Site clean \T\ dry. Gauge \T\ site: 20G L wrist. 07:01 XRAY Chest (1 view) In Process Unspecified. EDMS 07:20 Attending Physician role handed off by Davon Arredondo MD ms3 07:20 Diogo Jacobo DO is Attending Physician. ms3 07:54 Maris Chao MD is Hospitalizing Provider. ms3 10:25 Provided Education on: POC. hb 10:25 Patient admitted, IV remains in place. hb Administered Medications: 06:18 Discontinued: ns 0.9% 500 ml 500 ml IV at 125 ml/hr once; to be given as a bolus over laila 30 minutes 06:15 Drug: NS 0.9% IV 500 ml 500 ml IV at 125 ml/hr once; to be given as a bolus over 30 cp4 minutes Volume: 500 ml; Route: IV; Rate: 125 ml/hr; Site: left wrist; 06:46 Follow up: IV Status: Completed infusion cp4 06:59 Drug: Furosemide IVP 40 mg IVP once; give over 2 minutes Route: IVP; Site: left wrist; cp4 09:43 Drug: Insulin Regular Human Sub-Q 10 units Sub-Q once {Co-Signature: jamil (katie Ward RN).} Route: Sub-Q; Site: left upper arm; Medication: 06:44 VIS not applicable for this client. cp4 Outcome: 07:56 Decision to Hospitalize by Provider. ms3 10:25 Admitted to ER Hold. Please see [facility] for further documentation. hb 10:25 Condition: stable 10:25 Instructed on the need for admit, Demonstrated understanding of instructions, 14:12 Patient left the ED. [email or web address] Signatures: Dispatcher [employer] EDMS Davon Arredondo MD MD cha Baxter, Heather, RN RN Adan Harley RN RN jb4 Diogo Jacobo DO DO ms3 Lucina Kim Clarissa, RN RN cmLaura Hayward [facility] Tisha Ward RN
[2024-11-14] MEDS ORDERED: ACETAMINOPHEN 325 MG TABLET PO PRN (08:38)
[2024-11-14] MEDS ORDERED: D10W 125 ML IV PRN (08:46)
[2024-11-14] MEDS ORDERED: GLUCAGON 1 MG/VIAL IM PRN (08:46)
[2024-11-14 08:49] LABS: ACANTHOCYTE FEW; Anisocytosis 3+; Blood Morphology Comment NOTED (NOT SEEN); Microcytosis 1+; Ovalocytes SLIGHT; Platelets Clumped PRESENT; White Blood Cell Scan OK (OK)
--- NOTE | 2024-11-14 08:50 | P.HP ---
Certification for Inpatient Patient admitted to: Inpatient With expected LOS: >2 Midnights Patient will require the following post-hospital care: None Practitioner: I am a practitioner with admitting privileges, knowledge of patient current condition, hospital course, and medical plan of care. Services: Services provided to patient in accordance with Admission requirements found in Title 42 Section 412.3 of the Code of Federal Regulations <LupillobarryBaljinder Barry - Last Filed: 11/14/24 19:09> Patient History Date of Service: 11/14/24 Reason for admission: Shortness of breath History of Present Illness: Patient is a 79-year-old male with a past medical history significant for A-fib, CAD, CHF, DM2, hypertension, prostrate cancer, right foot wound, left BKA who presents with complaint of shortness of breath onset this morning. Patient reported associated signs and symptoms of cough, fatigue and generalized weakness. Patient denies any other signs and symptoms. Symptoms are aggravated or relieved by nothing. Patient decided to present to the hospital due to worsening symptoms. - Past Medical/Surgical History Diabetic: Yes -: DM II -: HTN -: CKD III (Dr. Márquez/ Dr. Aguilar) -: Systolic CHF -: CAD -: HLD -: Atrial fibrillation on chronic anticoagulation -: Enlarged Prostate with LUTS -: Prostate cancer -: PAD -: carotid stent -: CABG tup2016 -: BKA left leg -: Prostate surgery -: bladder surgery -: skin graft Psychosocial/ Personal History: Patient lives at home with his family - Family History Father -: Heart disease Mother -: Lung disease Notes: COPD, leaking heart valve, emphysema - Social History Smoking Status: Never smoker Alcohol use: No CD- Drugs: No Caffeine use: No Place of Residence: Home <Baljinder Lee - Last Filed: 11/14/24 19:09> Date of Service: 11/14/24 <Maris Chao - Last Filed: 11/15/24 04:57> Allergies hydrocodone [From Vicodin] Allergy (Verified 10/28/24 17:46) Nausea/Vomiting codeine Adverse Reaction (Verified 10/28/24 17:46) Nausea/Vomiting hydrocodone bitartrate [From Vicodin] Adverse Reaction (Verified 10/28/24 17:46) Nausea/Vomiting Home Medications: Insulin Degludec [Tresiba Flextouch U-200] 40 units SQ BEDTIME 04/14/18 Tamsulosin HCl 0.4 mg PO BEDTIME 04/14/18 Sotalol HCl [Betapace*] 80 mg PO BID 6AM 6PM #60 tab 05/28/19 glipiZIDE [Glipizide ER] 10 mg PO BID 02/08/20 Dapagliflozin Propanediol [Farxiga] 5 mg PO DAILY 03/28/21 Rivaroxaban [Xarelto] 20 mg PO BEDTIME 03/28/21 Rosuvastatin Calcium [Crestor] 20 mg PO BEDTIME 03/28/21 Famotidine 20 mg PO DAILY 01/28/23 Finasteride 5 mg PO DAILY 01/28/23 Magnesium Oxide [Magnesium] 400 mg PO BID 01/28/23 Zinc Gluconate [Zinc] 30 mg PO DAILY 01/28/23 Benzonatate [Tessalon Perle*] 100 mg PO TID PRN cap 06/30/24 Liothyronine Sodium [Cytomel] 25 mcg PO DAILY 08/02/24 Furosemide [Lasix*] 40 mg PO BIDL 30 Days #60 tab 10/28/24 Glucerna Shake [Glucerna*] 237 ml PO BID can 10/28/24 Spironolactone [Aldactone*] 25 mg PO DAILY 30 Days #30 tab 10/28/24 Thiamine HCl [Vitamin B-1] 100 mg PO DAILY 30 Days #30 tab 10/28/24 guaiFENesin [Robitussin 100MG/5ML*] 5 ml PO QID PRN 10 Days #200 ml 10/28/24 Collagenase [Santyl Ointment*] 1 appl TOP DAILY #1 gm 11/08/24 Hydrocortisone Cream [Hydrocortisone 1% Cream*] 1 appl TOP TID PRN tube 11/08/24 Midodrine HCl [Proamatine*] 5 mg PO 1200,1700 #60 tab 11/08/24 Review of Systems General: Weakness, Other (Fatigue.) Eyes: Unremarkable ENT: Unremarkable Respiratory: Cough, Shortness of Breath Cardiovascular: Unremarkable Gastrointestinal: Unremarkable Genitourinary: Unremarkable Musculoskeletal: Unremarkable Integumentary: Unremarkable Neurological: Unremarkable Lymphatics: Unremarkable <Baljinder Lee E - Last Filed: 11/14/24 19:09> Physical Examination - Physical Exam General: Alert, In no apparent distress, Oriented x3, Cooperative HEENT: Atraumatic, PERRLA, Mucous membr. moist/pink, EOMI, Sclerae nonicteric Neck: Supple, 2+ carotid pulse no bruit, No LAD, Without JVD or thyroid abnormality Respiratory: Clear to auscultation bilaterally, Normal air movement Cardiovascular: Normal S1 S2, Edema Capillary refill: <2 Seconds Gastrointestinal: Normal bowel sounds, Non-distended, No tenderness Musculoskeletal: No clubbing, No tenderness Integumentary: No rashes, No significant lesion, Other (Right foot wound) Neurological: Normal speech, Normal tone, Normal affect Lymphatics: No axilla or inguinal lymphadenopathy - Studies Laboratory Data (last 24 hrs) 11/14/24 11/14/24 11/14/24 06:31 06:31 06:31 WBC 7.60 Hgb 9.6 L Hct 31.0 L Plt Count 361 PT 46.2 H INR 4.26 Sodium 135 L Potassium 4.9 BUN 39 H Creatinine 1.46 H Glucose 426 H* Magnesium 2.3 Total Bilirubin 0.9 AST 29 ALT 25 Alkaline Phosphatase 98 Lipase 47 <LupilloShamir reddymonty Reddy - Last Filed: 11/14/24 19:09> - Studies Laboratory Data (last 24 hrs) 11/14/24 11/14/24 11/14/24 06:31 06:31 06:31 WBC 7.60 Hgb 9.6 L Hct 31.0 L Plt Count 361 PT 46.2 H INR 4.26 Sodium 135 L Potassium 4.9 BUN 39 H Creatinine 1.46 H Glucose 426 H* Magnesium 2.3 Total Bilirubin 0.9 AST 29 ALT 25 Alkaline Phosphatase 98 Lipase 47 <Maris Chao - Last Filed: 11/15/24 04:57> Assessment and Plan - Plan Acute on chronic systolic and diastolic CHF exacerbation. --Continue diuresis with Lasix drip. --Continue home medications. --Daily weight and strict I/O. --Cardiology consulted. Recommendations appreciated. Atrial fibrillation. --Continue Xarelto. History of CAD\PVD\CABG --Continue aspirin and statin. Left BKA --Continue supportive care Right foot wound --Wound care consult initiated. Recommendations appreciated History of prostrate cancer --Status unknown. --Continue supportive care DM2 with hyperglycemia. --BS monitoring with sliding scale insulin and Lantus. Hyperlipidemia\GERD\BPH\hypothyroidism --Continue home medications. Anemia of chronic disease --H&H stable. --Transfuse if hemoglobin less than 7.0. DVT prophylaxis with Xarelto. Discharge Plan: Home Plan to discharge in: Greater than 2 days - Advance Directives Does patient have a Living Will: No Does patient have a Durable POA for Healthcare: No - Code Status/Comfort Care Code Status Assessed: Yes Physician Review: Patient Assessed, Agree with Above Assessment and Plan Critical Care: No <Baljinder Lee - Last Filed: 11/14/24 19:09> Date of Service: 11/14/24 Chart has been reviewed. Events of the last 24 hours have been noted. Case discussed with HAY[facility]. I performed a substantial part of the MDM during this patient's care today. I personally made or approved the documented management plan and acknowledge its risk of complications. I agree with the findings and documentation provided in the HAYDER's notes Patient readmitted after recently leaving rehab. Patient really is not able to care for himself as he has had recurrent admissions whenever he goes home alone. His troponins were mildly elevated but they have come back down to baseline normal. Renal function is slightly elevated as well. Patient may have some prerenal azotemia. Patient may be a little overdiuresed. Will monitor volume s tatus closely and get patient to work with physical therapy once again. Patient May be able to benefit long-term living at a nursing facility where he has someone able to care for him or at assisted living. Will reach out to case management to give patient information. <Maris Chao - Last Filed: 11/15/24 04:57>
[2024-11-14] MEDS: FUROSEMIDE 40 MG/4 ML VIAL IV SCH (09:00)
[2024-11-14] MEDS: HEPARIN 5000 UNIT/ML 1 ML VIAL SQ SCH (09:00)
[2024-11-14] MEDS ORDERED: INSULIN REGULAR (HUMAN) 100 UNIT/ML ONE ×2 (09:39→12:59)
[2024-11-14 11:21] LABS: Magnesium 2.4 mg/dL (1.6-2.4)
[2024-11-14 11:22] LABS: Thyroid Stimulating Hormone 4.67 uIU/mL (0.358-3.740)
[2024-11-14] MEDS: INSULIN REGULAR (HUMAN) 100 UNIT/ML SQ SCH (13:02)
--- NOTE | 2024-11-14 14:28 | P.CNS ---
Date of Consult: 11/14/24 Chief Complaint: SOB History of Present Illness: Patient with PMH of CAD s/p CABG, PAD, AF, Chronic combined heart failure, presented with worsening SOB, HINES, denies chest pain, no palpitations, no syncope. Allergies hydrocodone [From Vicodin] Allergy (Verified 10/28/24 17:46) Nausea/Vomiting codeine Adverse Reaction (Verified 10/28/24 17:46) Nausea/Vomiting hydrocodone bitartrate [From Vicodin] Adverse Reaction (Verified 10/28/24 17:46) Nausea/Vomiting Home medications list reviewed: Yes Home Medications: Insulin Degludec [Tresiba Flextouch U-200] 40 units SQ BEDTIME 04/14/18 Tamsulosin HCl 0.4 mg PO BEDTIME 04/14/18 Sotalol HCl [Betapace*] 80 mg PO BID 6AM 6PM #60 tab 05/28/19 glipiZIDE [Glipizide ER] 5 mg PO BID 02/08/20 Dapagliflozin Propanediol [Farxiga] 5 mg PO DAILY 03/28/21 Rivaroxaban [Xarelto] 20 mg PO BEDTIME 03/28/21 Rosuvastatin Calcium [Crestor] 20 mg PO BEDTIME 03/28/21 Famotidine 20 mg PO DAILY 01/28/23 Finasteride 5 mg PO DAILY 01/28/23 Magnesium Oxide [Magnesium] 400 mg PO BID 01/28/23 Zinc Gluconate [Zinc] 30 mg PO DAILY 01/28/23 Benzonatate [Tessalon Perle*] 100 mg PO TID PRN cap 06/30/24 Liothyronine Sodium [Cytomel] 25 mcg PO DAILY 08/02/24 Zinc Oxide [Zinc Oxide 20%*] 1 appl TOP DAILY tube 09/10/24 Collagenase [Santyl Ointment*] 0 appl TOP DAILY 30 Days #1 tube 10/28/24 Furosemide [Lasix*] 40 mg PO BIDL 30 Days #60 tab 10/28/24 Glucerna Shake [Glucerna*] 237 ml PO BID can 10/28/24 Spironolactone [Aldactone*] 25 mg PO DAILY 30 Days #30 tab 10/28/24 Thiamine HCl [Vitamin B-1] 100 mg PO DAILY 30 Days #30 tab 10/28/24 guaiFENesin [Robitussin 100MG/5ML*] 5 ml PO QID PRN 10 Days #200 ml 10/28/24 Collagenase [Santyl Ointment*] 1 appl TOP DAILY #1 gm 11/08/24 Duloxetine [Cymbalta *] 40 mg PO BEDTIME #60 cap 11/08/24 Hydrocortisone Cream [Hydrocortisone 1% Cream*] 1 appl TOP TID PRN tube 11/08/24 Midodrine HCl [Proamatine*] 5 mg PO 1200,1700 #60 tab 11/08/24 Midodrine HCl [Proamatine*] 10 mg PO 0700 #60 tab 11/08/24 - Past Medical/Surgical History Diabetic: Yes -: DM II -: HTN -: CKD III (Dr. Márquez/ Dr. Aguilar) -: Systolic CHF -: CAD -: HLD -: Atrial fibrillation on chronic anticoagulation -: Enlarged Prostate with LUTS -: Prostate cancer -: PAD -: carotid stent -: CABG [id number] -: BKA left leg -: Prostate surgery -: bladder surgery -: skin graft Psychosocial/ Personal History: Patient lives at home with his family - Family History Father Medical History: Heart disease Mother Medical History: Lung disease Notes: COPD, leaking heart valve, emphysema - Social History Smoking Status: Unknown if ever smoked Alcohol use: No CD- Drugs: No Caffeine use: No Review of Systems 10-point ROS is otherwise unremarkable Physical Examination General: Alert, In no apparent distress HEENT: Atraumatic, PERRLA, Mucous membr. moist/pink, EOMI, Sclerae nonicteric Neck: Supple, 2+ carotid pulse no bruit, No LAD, Without JVD or thyroid abnormality Respiratory: Clear to auscultation bilaterally, Normal air movement Cardiovascular: Regular rate/rhythm, Normal S1 S2 Gastrointestinal: Normal bowel sounds, No tenderness Musculoskeletal: No tenderness Integumentary: No rashes Neurological: Normal gait, Normal speech, Normal tone, Normal affect Lymphatics: No axilla or inguinal lymphadenopathy Laboratory Data (last 24 hrs) 11/14/24 11/14/24 11/14/24 06:31 06:31 06:31 WBC 7.60 Hgb 9.6 L Hct 31.0 L Plt Count 361 PT 46.2 H INR 4.26 Sodium 135 L Potassium 4.9 BUN 39 H Creatinine 1.46 H Glucose 426 H* Magnesium 2.3 Total Bilirubin 0.9 AST 29 ALT 25 Alkaline Phosphatase 98 Lipase 47 - Problems (1) CAD (coronary artery disease) of bypass graft Current Visit: Yes Status: Acute Plan: troponin negative, continue to trend continue ASA 81 mg daily continue lipitor 40 mg daily (2) Acute on chronic combined systolic (congestive) and diastolic (congestive) heart failure Current Visit: No Status: Acute Plan: continue lasix 40 mg IV BID Continue to monitor input and output and electrolytes. continue aldactone 25 mg daily continue farxiga 5 mg daily (3) Atrial fibrillation Current Visit: No Status: Acute Plan: continue Sotalol 80 mg po BID Continue Xarelto 20 mg daily continue to monitor on tele
[2024-11-14] MEDS ORDERED: BENZONATATE 100 MG CAP PO PRN (18:56)
[2024-11-14] MEDS ORDERED: HYDROCORTISONE 1 % CREAM 30GM TOP PRN (18:56)
[2024-11-14] MEDS: ROSUVASTATIN 10 MG TAB PO SCH (20:36)
[2024-11-14] MEDS: GLUCERNA SHAKE 237 ML CAN PO SCH (20:37)
[2024-11-14] MEDS: MAGNESIUM OXIDE 400 MG TAB PO SCH (20:37)
[2024-11-14] MEDS: TAMSULOSIN 0.4 MG SR CAP PO SCH (20:37)
[2024-11-14] MEDS: RIVAROXABAN 20 MG TABLET PO SCH (21:00)
[2024-11-14] MEDS: INSULIN DEGLUDEC 200 UNIT/ML SQ SCH (21:00)
[2024-11-14] MEDS: INSULN SQ SCH (21:00)
[2024-11-15 06:14] LABS: Absolute Lymphocytes (CBC) 1.3 K/uL (0.7-4.9); Hematocrit 32.9 % (39.6-49.0); Hemoglobin 10.4 g/dL (13.6-17.9); MCH 23.8 pg (27.0-35.0); MCHC 31.6 g/dL (32.0-36.0); MCV 75.3 fL (80-100); MPV 7.2 fL (7.6-11.3); Nucleated RBC Absolute Count 0.0 (0-0); Nucleated Red Blood Cells % 0.1 % (0-0); RBC Red Blood Cell Count 4.36 M/uL (4.33-5.43); White Blood Count 8.00 thou/uL (4.3-10.9)
[2024-11-15 06:41] LABS: Anion Gap 11.7 mEq/L (5.0-15.0); BUN Blood Urea Nitrogen 42.0 mg/dL (7-18); Glucose Level 126.0 mg/dL (74-106); NT PRO-BNP 22354.0 pg/mL (<450); Potassium 4.7 mEq/L (3.5-5.1)
[2024-11-15] MEDS: SOTALOL HCL 80 MG TAB PO SCH (06:41)
[2024-11-15 08:08] LABS: Sqamous Epithelial <5 /HPF (None Seen); Urine Culture Reflex Order REFLEXED; Urine Microscopic Reflex YN ORDER UMIC
[2024-11-15] MEDS: guaiFENesin 100 MG/5 ML UCUP PO PRN (09:00)
[2024-11-15] MEDS: SPIRONOLACTONE 25 MG TABLET PO SCH (09:00)
[2024-11-15] MEDS: COLLAGENASE 30 GM OINTMENT TOP SCH (09:00)
[2024-11-15] MEDS: FINASTERIDE 5 MG TAB PO SCH (09:01)
[2024-11-15] MEDS: FAMOTIDINE 20 MG TAB PO SCH (09:02)
[2024-11-15] MEDS: ASPIRIN EC 81 MG TAB PO SCH (09:02)
[2024-11-15] MEDS: ONDANSETRON 4 MG/2 ML VIAL IV PRN (09:03)
[2024-11-15] MEDS: LIOTHYRONINE SOD 25 MCG TAB PO SCH (09:10)
--- NOTE | 2024-11-15 12:10 | P.PN ---
Date of Service: 11/15/24 Subjective: no significant changes Physical Exam: Gen: Alert, Oriented, NAD CV: Regular rate and rhythm, no edema Pulm: Nonlabored respirations on 1.5L NC, diminished Abdomen: Soft, nontender, nondistended Neuro: Normal strength, normal affect Problem List: Acute on chronic combined systolic / diastolic CHF exacerbation A-fib on chronic anticoagulation CAD s/p CABG CKD3 Hx Left BKA / PVD Chronic right foot wound Hyperlipidemia GERD BPH Hypothyroidism Hx prostate cancer Acute on chronic combined systolic / diastolic CHF exacerbation on admission, presents with worsening shortness of breath associated with cough, fatigue, weakness. May need placement. Multiple admission for CHF exacerbations recently and Pt not really able to care for himself at home. Recently discharged from our 5th floor rehab on the . ss/cm consulted for more info, assisted living / independent living IV Lasix deescalated to oral Lasix 40 mg BID 11/15 cardio recommends IV lasix continue tessalon perltatum, gennarosin Cardiology consulted BNP 22k A-fib on chronic anticoagulation CAD s/p CABG Continue home asa 81mg, statin, sotalol, Xarelto CKD3 Continue to monitor renal function, electrolytes ~baseline Hx Left BKA / PVD Chronic right foot wound [facility] consulted on admission continue local wound care per [facility] recs Sees Dr. Kendrick at the [facility]. Hyperlipidemia GERD BPH Hypothyroidism Hx prostate cancer confirm home meds, restart as appropriate VTE: heparin sq Code: Full Dispo: Home vs possible placement ss/cm consulted
[2024-11-15] MEDS: MIDODRINE HCL 5 MG TABLET PO SCH (12:11)
[2024-11-15] MEDS: FLUTICASONE 50MCG NASAL SPRAY NAS SCH (15:48)
[2024-11-15] MEDS: FUROSEMIDE 40 MG TABLET PO SCH (17:00)
[2024-11-15] MEDS: HYDROCODONE/APAP 5/325 MG TAB PO PRN (23:03)
[2024-11-16 04:41] LABS: Absolute Lymphocytes (CBC) 1.8 K/uL (0.7-4.9); Hematocrit 34.4 % (39.6-49.0); Hemoglobin 10.5 g/dL (13.6-17.9); MCH 23.3 pg (27.0-35.0); MCHC 30.6 g/dL (32.0-36.0); MCV 76.2 fL (80-100); MPV 7.4 fL (7.6-11.3); Nucleated RBC Absolute Count 0.0 (0-0); Nucleated Red Blood Cells % 0.1 % (0-0); RBC Red Blood Cell Count 4.52 M/uL (4.33-5.43); White Blood Count 8.60 thou/uL (4.3-10.9)
[2024-11-16 05:11] LABS: ALT/SGPT 24.0 U/L (16-61); AST/SGOT 22.0 U/L (15-37); Albumin 3.0 g/dL (3.4-5.0); Albumin/Globulin Ratio 0.8 (1.1-1.8); Alkaline Phosphatase 103.0 U/L (45-117); Anion Gap 9.0 mEq/L (5.0-15.0); BUN Blood Urea Nitrogen 49.0 mg/dL (7-18); Globulin 3.8 g/dL (2.3-3.5); Glucose Level 104.0 mg/dL (74-106); Magnesium 2.6 mg/dL (1.6-2.4); NT PRO-BNP 25394.0 pg/mL (<450); Potassium 5.0 mEq/L (3.5-5.1)
[2024-11-16] MEDS: FUROSEMIDE 40 MG/4 ML VIAL IV SCH (09:00)
--- NOTE | 2024-11-16 10:45 | P.PN ---
Date of Service: 11/16/24 Subjective: feeling better overall easier to take a deep breath denies any significant lower extremity swelling at home wants to speak to ss/cm about independent living slept well overnight Physical Exam: Gen: Alert, Oriented, NAD CV: Regular rate and rhythm, no edema Pulm: Nonlabored respirations on 1.5L NC, diminished Abdomen: Soft, nontender, nondistended Neuro: Normal strength, normal affect Problem List: Acute on chronic combined systolic / diastolic CHF exacerbation A-fib on chronic anticoagulation CAD s/p CABG CKD3 Iron deficiency anemia Hx Left BKA / PVD Chronic right foot wound Hyperlipidemia GERD BPH Hypothyroidism Hx prostate cancer Acute on chronic combined systolic / diastolic CHF exacerbation on admission, presents with worsening shortness of breath associated with cough, fatigue, weakness. May need placement. Multiple admission for CHF exacerbations recently and Pt not really able to care for himself at home. Recently discharged from our 5th floor rehab on the . ss/cm consulted for more info, assisted living / independent living Continue IV lasix 40 mg BID cardiology is following continue rafy cannon A-fib on chronic anticoagulation CAD s/p CABG Continue home asa 81mg, statin, sotalol, Xarelto CKD3 Continue to monitor renal function, electrolytes ~baseline Iron deficiency anemia iron studies 1 month ago with iron 18, tsat% 7 Daily labs. Hx Left BKA / PVD Chronic right foot wound [facility] consulted on admission continue local wound care per [facility] recs Sees Dr. Kendrick at the [facility]. Hyperlipidemia GERD BPH Hypothyroidism Hx prostate cancer confirm home meds, restart as appropriate VTE: heparin sq Code: Full Dispo: Home vs possible placement ss/cm consulted
--- NOTE | 2024-11-16 10:59 | P.CNS ---
Date of Consult: 11/16/24 Reason for Consult: [place] Chief Complaint: Shortness of breath History of Present Illness: Pt 79-year-old gentleman, well known to me from the office with significant past medical history of: Arthritis. Hypertension since 2009. Diabetes since 1992 complicated with neuropathy, no retinopathy, no nephropathy.PAD. Status post left below-knee amputation in 2016. CAD, status post CABG in 2017, complicated with congestive heart failure. Prostate CA, status post surgery back in 2017. Follow up with Dr. Garcia. 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 baseline creatinine 1.8 Patient came to the hospital complaining from shortness of breath increased leg swelling found to have elevation in BUN/creatinine over volume for that reason we have been consulted Allergies hydrocodone [From Vicodin] Allergy (Verified 10/28/24 17:46) Nausea/Vomiting codeine Adverse Reaction (Verified 10/28/24 17:46) Nausea/Vomiting hydrocodone bitartrate [From Vicodin] Adverse Reaction (Verified 10/28/24 17:46) Nausea/Vomiting Home Medications: Insulin Degludec [Tresiba Flextouch U-200] 40 units SQ BEDTIME 04/14/18 Tamsulosin HCl 0.4 mg PO BEDTIME 04/14/18 Sotalol HCl [Betapace*] 80 mg PO BID 6AM 6PM #60 tab 05/28/19 glipiZIDE [Glipizide ER] 10 mg PO BID 02/08/20 Dapagliflozin Propanediol [Farxiga] 5 mg PO DAILY 03/28/21 Rivaroxaban [Xarelto] 20 mg PO BEDTIME 03/28/21 Rosuvastatin Calcium [Crestor] 20 mg PO BEDTIME 03/28/21 Famotidine 20 mg PO DAILY 01/28/23 Finasteride 5 mg PO DAILY 01/28/23 Magnesium Oxide [Magnesium] 400 mg PO BID 01/28/23 Zinc Gluconate [Zinc] 30 mg PO DAILY 01/28/23 Benzonatate [Tessalon Perle*] 100 mg PO TID PRN cap 06/30/24 Liothyronine Sodium [Cytomel] 25 mcg PO DAILY 08/02/24 Furosemide [Lasix*] 40 mg PO BIDL 30 Days #60 tab 10/28/24 Glucerna Shake [Glucerna*] 237 ml PO BID can 10/28/24 Spironolactone [Aldactone*] 25 mg PO DAILY 30 Days #30 tab 10/28/24 Thiamine HCl [Vitamin B-1] 100 mg PO DAILY 30 Days #30 tab 10/28/24 guaiFENesin [Robitussin 100MG/5ML*] 5 ml PO QID PRN 10 Days #200 ml 10/28/24 Collagenase [Santyl Ointment*] 1 appl TOP DAILY #1 gm 11/08/24 Hydrocortisone Cream [Hydrocortisone 1% Cream*] 1 appl TOP TID PRN tube 11/08/24 Midodrine HCl [Proamatine*] 5 mg PO 1200,1700 #60 tab 11/08/24 - Past Medical/Surgical History Diabetic: Yes -: DM II -: HTN -: CKD III (Dr. Márquez/ Dr. Aguilar) -: Systolic CHF -: CAD -: HLD -: Atrial fibrillation on chronic anticoagulation -: Enlarged Prostate with LUTS -: Prostate cancer -: PAD -: carotid stent -: CABG t2016 -: BKA left leg -: Prostate surgery -: bladder surgery -: skin graft Psychosocial/ Personal History: Patient lives at home with his family - Family History Father Medical History: Heart disease Mother Medical History: Lung disease Notes: COPD, leaking heart valve, emphysema - Social History Smoking Status: Unknown if ever smoked Alcohol use: No CD- Drugs: No Caffeine use: No Place of Residence: Home Review of Systems 10-point ROS is otherwise unremarkable Respiratory: Cough, Shortness of Breath, SOB with Excertion Cardiovascular: Orthopnea, Edema Physical Examination Temp Pulse Resp BP Pulse Ox 98.2 F 74 17 90/60 100 11/16/24 08:00 11/16/24 09:00 11/16/24 08:00 11/16/24 09:00 11/16/24 08:00 General: Oriented x3 HEENT: Atraumatic Neck: Supple Respiratory: Crackles/rales Cardiovascular: Normal S1 S2, Edema, Abnormal pulses (Left below-knee amputation), Systolic murmur Gastrointestinal: Normal bowel sounds, Soft and benign Musculoskeletal: No clubbing (Joint deformity) Neurological: Normal gait, Normal speech, Normal strength at 5/5 x4 extr Conclusions/Impression: 1. Acute kidney injury on chronic kidney disease secondary to cardiorenal. Look to me slightly on the wet side. I am going to go ahead and hold on the losartan. We will give the patient Lasix and we will follow up the patient closely. 2. Congestive heart failure with exacerbation. We will utilize the blood pressure for more diuresis. 3. Anemia of chronic kidney disease. Workup was done before and showing a component of irondeficiency anemia. I am going to go ahead and repeat the iron study. We will give the patient single dose of LUIS for the time being. 4. Anasarca secondary to congestive heart failure. Previous workup show some hypothyroidism, patient on supplement. Continue to optimize the fluid status. 5. Atrial fibrillation with rapid ventricular response with congestive heart failure. We will follow up with the Primary. 6-marginal hyponatremia secondary to dilutional will optimize fluid status continue diuresis 7-marginal hyperkalemia no need for treatment will optimize with the dialysis Time spent examining the patient [id number], reviewing data, lab and radiology, placing order, discussing the case with the patient, discussing the case with the steam cleaning machine operator including hospitalist and nursing staff more than 75 minutes.
--- NOTE | 2024-11-16 11:27 | P.PN ---
Subjective Date of Service: 11/16/24 Chief Complaint: Shortness of breath Subjective: No new changes Review of Systems 10-point ROS is otherwise unremarkable Physical Examination - Vital Signs Temperature: 98.2 F Blood Pressure: 90/60 Pulse: 74 Respirations: 17 Pulse Ox (%): 100 - Physical Exam General: Alert, In no apparent distress HEENT: Atraumatic, PERRLA, EOMI Neck: Supple, JVD not distended Respiratory: Clear to auscultation bilaterally, Normal air movement Cardiovascular: Regular rate/rhythm, Normal S1 S2 Gastrointestinal: Normal bowel sounds, No tenderness Musculoskeletal: No tenderness Integumentary: No rashes Neurological: Normal speech, Normal tone, Normal affect Lymphatics: No axilla or inguinal lymphadenopathy - Studies Medications List Reviewed: Yes Assessment And Plan - Current Problems (Diagnosis) (1) CAD (coronary artery disease) of bypass graft Current Visit: Yes Status: Acute Plan: troponin negative, continue to trend continue ASA 81 mg daily continue lipitor 40 mg daily (2) Acute on chronic combined systolic (congestive) and diastolic (congestive) heart failure Current Visit: No Status: Acute Plan: continue lasix 40 mg IV BID Continue to monitor input and output and electrolytes. continue aldactone 25 mg daily continue farxiga 5 mg daily (3) Atrial fibrillation Current Visit: No Status: Acute Plan: continue Sotalol 80 mg po BID Continue Xarelto 20 mg daily continue to monitor on tele Physician Review: Patient Assessed, Agree with Above Assessment and Plan
[2024-11-16] MEDS: INSULIN GLARGINE 100 UNIT/ML SQ SCH (19:59)
[2024-11-17 00:18] VITALS: O2SAT 98
[2024-11-17 04:31] LABS: Hematocrit 32.8 % (39.6-49.0); Hemoglobin 10.1 g/dL (13.6-17.9); MCH 23.5 pg (27.0-35.0); MCHC 30.8 g/dL (32.0-36.0); MCV 76.3 fL (80-100); MPV 7.5 fL (7.6-11.3); RBC Red Blood Cell Count 4.30 M/uL (4.33-5.43); White Blood Count 8.20 thou/uL (4.3-10.9)
[2024-11-17 04:52] LABS: ALT/SGPT 23.0 U/L (16-61); AST/SGOT 19.0 U/L (15-37); Albumin 2.7 g/dL (3.4-5.0); Albumin/Globulin Ratio 0.8 (1.1-1.8); Alkaline Phosphatase 96.0 U/L (45-117); Anion Gap 10.1 mEq/L (5.0-15.0); BUN Blood Urea Nitrogen 53.0 mg/dL (7-18); Globulin 3.6 g/dL (2.3-3.5); Glucose Level 241.0 mg/dL (74-106); Magnesium 2.5 mg/dL (1.6-2.4); Potassium 5.1 mEq/L (3.5-5.1)
--- NOTE | 2024-11-17 09:55 | P.PN ---
Subjective Date of Service: 11/17/24 Chief Complaint: Shortness of breath Subjective: No new changes Review of Systems 10-point ROS is otherwise unremarkable Physical Examination - Vital Signs Temperature: 97.6 F Blood Pressure: 114/84 Pulse: 82 Respirations: 16 Pulse Ox (%): 100 - Physical Exam General: Alert, In no apparent distress HEENT: Atraumatic, PERRLA, EOMI Neck: Supple, JVD not distended Respiratory: Clear to auscultation bilaterally, Normal air movement Cardiovascular: Regular rate/rhythm, Normal S1 S2 Gastrointestinal: Normal bowel sounds, No tenderness Musculoskeletal: No tenderness Integumentary: No rashes Neurological: Normal speech, Normal tone, Normal affect Lymphatics: No axilla or inguinal lymphadenopathy - Studies Medications List Reviewed: Yes Assessment And Plan - Current Problems (Diagnosis) (1) CAD (coronary artery disease) of bypass graft Current Visit: Yes Status: Acute Plan: troponin negative, continue to trend continue ASA 81 mg daily continue lipitor 40 mg daily (2) Acute on chronic combined systolic (congestive) and diastolic (congestive) heart failure Current Visit: No Status: Acute Plan: continue lasix 40 mg IV BID, may switch to lasix 40 mg po BID on discharge Continue to monitor input and output and electrolytes. continue aldactone 25 mg daily continue farxiga 5 mg daily Cardiology will sign off, please call with any questions. (3) Atrial fibrillation Current Visit: No Status: Acute Plan: continue Sotalol 80 mg po BID Continue Xarelto 20 mg daily continue to monitor on tele Physician Review: Patient Assessed, Agree with Above Assessment and Plan
--- NOTE | 2024-11-17 10:19 | P.PN ---
Date of Service: 11/17/24 79-year-old gentleman, well known to me from the office with significant past medical history of: Arthritis. Hypertension since 2009. Diabetes since 1992 complicated with neuropathy, no retinopathy, no nephropathy.PAD. Status post left below-knee amputation in 2016. CAD, status post CABG in 2017, complicated with congestive heart failure. Prostate CA, status post surgery back in 2017. Follow up with Dr. Garcia. 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 baseline creatinine 1.8 Patient came to the hospital complaining from shortness of breath increased leg swelling found to have elevation in BUN/creatinine over volume for that reason we have been consulted Physical Examination Temp Pulse Resp BP Pulse Ox 97.6 F 82 16 114/84 100 11/17/24 09:54 11/17/24 09:54 11/17/24 09:54 11/17/24 09:54 11/17/24 09:54 General: Oriented x3 HEENT: Atraumatic Neck: Supple Respiratory: Crackles/rales Cardiovascular: Normal S1 S2, Edema, Abnormal pulses (Left below-knee amputation), Systolic murmur Gastrointestinal: Normal bowel sounds, Soft and benign Musculoskeletal: No clubbing (Joint deformity) Neurological: Normal gait, Normal speech, Normal strength at 5/5 x4 extr Conclusions/Impression: 1. Acute kidney injury on chronic kidney disease secondary to cardiorenal. Look to me slightly on the wet side. I am going to go ahead and hold on the losartan. continue diuresis 2. Congestive heart failure with exacerbation. We will utilize the blood pressure for more diuresis. 3. Anemia of chronic kidney disease. Workup was done before and showing a component of irondeficiency anemia. I am going to go ahead and repeat the iron study. We will give the patient single dose of LUIS for the time being. 4. Anasarca secondary to congestive heart failure. Previous workup show some hypothyroidism, patient on supplement. Continue to optimize the fluid status. 5. Atrial fibrillation with rapid ventricular response with congestive heart failure. We will follow up with the Primary. 6-marginal hyponatremia secondary to dilutional will optimize fluid status continue diuresis 7-marginal hyperkalemia no need for treatment will optimize with the dialysis Time spent examining the patient [id number], reviewing data, lab and radiology, placing order, discussing the case with the patient, discussing the case with the rehabilitation team lead including hospitalist and nursing staff more than 55 minutes.
[2024-11-17 11:45] VITALS: BMI 25.9
[2024-11-17] MEDS: EPOETIN ALFA-EPBX 10,000 UNIT/ML VIAL SQ ONE (12:03)
--- NOTE | 2024-11-17 12:08 | P.PN ---
Date of Service: 11/17/24 Subjective: Physical Exam: Gen: Alert, Oriented, NAD CV: Regular rate and rhythm, no edema Pulm: Nonlabored respirations on 1.5L NC, diminished Abdomen: Soft, nontender, nondistended Neuro: Normal strength, normal affect Problem List: Acute on chronic combined systolic / diastolic CHF exacerbation UTI vs vs asymptomatic bacteriuria A-fib on chronic anticoagulation CAD s/p CABG CKD3 Iron deficiency anemia Hx Left BKA / PVD Chronic right foot wound Hyperlipidemia GERD BPH Hypothyroidism Hx prostate cancer Acute on chronic combined systolic / diastolic CHF exacerbation on admission, presents with worsening shortness of breath associated with cough, fatigue, weakness. May need placement. Multiple admission for CHF exacerbations recently and Pt not really able to care for himself at home. Recently discharged from our 5th floor rehab on the . ss/cm consulted for more info, assisted living / independent living Continue IV lasix 40 mg BID cardiology is following continue rafy cannon UTI vs vs asymptomatic bacteriuria Urine cx (11/15): Staph Aureus and Yeast; 10-100k cfu/ml unclear if true infection vs asymptomatic bacteriuria no leukocytosis or fever since admission not on antibiotics A-fib on chronic anticoagulation CAD s/p CABG Continue home asa 81mg, statin, sotalol, Xarelto CKD3 Continue to monitor renal function, electrolytes ~baseline Iron deficiency anemia iron studies 1 month ago with iron 18, tsat% 7 Daily labs. Hx Left BKA / PVD Chronic right foot wound [facility] consulted on admission continue local wound care per [facility] recs Sees Dr. Kendrick at the [facility]. Hyperlipidemia GERD BPH Hypothyroidism Hx prostate cancer confirm home meds, restart as appropriate VTE: heparin sq Code: Full Dispo: Home vs possible placement ss/cm consulted
[2024-11-17 16:28] VITALS: BP 122/80; TEMP 97
--- NOTE | 2024-11-18 06:54 | P.DS ---
Admission Date: 11/14/24 Discharge Date: 11/17/24 Disposition: TRANSFER TO SNF - REHAB Discharge Condition: GOOD Reason for Admission: Shortness of breath Consultations: Cardiology - Dr. Flores Nephrology - Dr. Parker Brief History of Present Illness: 79yo M, PMH: A-fib, CAD, CHF, DM2, hypertension, prostrate cancer, right foot wound, left BKA Patient presents with complaint of shortness of breath onset this morning. Patient reported associated signs and symptoms of cough, fatigue and generalized weakness. Patient denies any other signs and symptoms. Symptoms are aggravated or relieved by nothing. Patient decided to present to the hospital due to worsening symptoms. Hospital Course: Problem List: Acute on chronic combined systolic / diastolic CHF exacerbation UTI vs vs asymptomatic bacteriuria A-fib on chronic anticoagulation CAD s/p CABG CKD3 Iron deficiency anemia Hx Left BKA / PVD Chronic right foot wound Hyperlipidemia GERD BPH Hypothyroidism Hx prostate cancer Physician discharge instructions: Patient presented with worsening shortness of breath associated with cough, fatigue, weakness secondary to acute on chronic combined systolic and diastolic CHF exacerbation. Multiple readmission for CHF exacerbation. He was just noted to be recently discharged from 5th floor rehab on the . Patient was started on IV lasix and had improvement of his symptoms. Cardiology was consulted who agreed with diuresis and recommended patient follow up in the office in a few weeks for further management. During his hospitalization, patient requested to speak with a psych social worker to discuss further planning as he didn't think he could continue to take care of himself completely at home by himself for the time being. Patient was feeling better, breathing more comfortably, and was deemed stable for discharge to SNF. Medications: no change in home meds Follow up: PCP 3-5 days Cardiology in 2-4 weeks Please call to schedule / confirm appointments Physical Exam: Gen: Alert, Oriented, NAD CV: Regular rate and rhythm, no edema Pulm: Nonlabored respirations on room air, clear bilaterally Abdomen: Soft, nontender, nondistended Neuro: Normal strength, normal affect Vital Signs/Physical Exam: Temp Pulse Resp BP Pulse Ox 97.0 F 78 16 122/80 100 11/17/24 16:00 11/17/24 16:00 11/17/24 16:00 11/17/24 16:00 11/17/24 16:00 Laboratory Data at Discharge: WBC 8.20 thou/uL (4.3-10.9) 11/17/24 04:07 Hgb 10.1 g/dL (13.6-17.9) L 11/17/24 04:07 Hct 32.8 % (39.6-49.0) L 11/17/24 04:07 Plt Count 338 thou/uL (152-406) 11/17/24 04:07 PT 46.2 SECONDS (10-13.0) H 11/14/24 06:31 INR 4.26 11/14/24 06:31 Sodium 136 mEq/L (136-145) 11/17/24 04:07 Potassium 5.1 mEq/L (3.5-5.1) 11/17/24 04:07 BUN 53 mg/dL (7-18) H 11/17/24 04:07 Creatinine 1.73 mg/dL (0.70-1.30) H 11/17/24 04:07 Glucose 241 mg/dL (74-106) H 11/17/24 04:07 Phosphorus 4.0 mg/dL (2.5-4.9) 11/14/24 10:44 Magnesium 2.5 mg/dL (1.6-2.4) H 11/17/24 04:07 Total Bilirubin 0.7 mg/dL (0.2-1.0) 11/17/24 04:07 AST 19 U/L (15-37) 11/17/24 04:07 ALT 23 U/L (16-61) 11/17/24 04:07 Alkaline Phosphatase 96 U/L (45-117) 11/17/24 04:07 Lipase 47 U/L (13-75) 11/14/24 06:31 Home Medications: Insulin Degludec [Tresiba Flextouch U-200] 40 units SQ BEDTIME 04/14/18 Tamsulosin HCl 0.4 mg PO BEDTIME 04/14/18 Sotalol HCl [Betapace*] 80 mg PO BID 6AM 6PM #60 tab 05/28/19 glipiZIDE [Glipizide ER] 10 mg PO BID 02/08/20 Dapagliflozin Propanediol [Farxiga] 5 mg PO DAILY 03/28/21 Rivaroxaban [Xarelto] 20 mg PO BEDTIME 03/28/21 Rosuvastatin Calcium [Crestor] 20 mg PO BEDTIME 03/28/21 Famotidine 20 mg PO DAILY 01/28/23 Finasteride 5 mg PO DAILY 01/28/23 Magnesium Oxide [Magnesium] 400 mg PO BID 01/28/23 Zinc Gluconate [Zinc] 30 mg PO DAILY 01/28/23 Benzonatate [Tessalon Perle*] 100 mg PO TID PRN cap 06/30/24 Liothyronine Sodium [Cytomel] 25 mcg PO DAILY 08/02/24 Furosemide [Lasix*] 40 mg PO BIDL 30 Days #60 tab 10/28/24 Glucerna Shake [Glucerna*] 237 ml PO BID can 10/28/24 Spironolactone [Aldactone*] 25 mg PO DAILY 30 Days #30 tab 10/28/24 Thiamine HCl [Vitamin B-1] 100 mg PO DAILY 30 Days #30 tab 10/28/24 guaiFENesin [Robitussin 100MG/5ML*] 5 ml PO QID PRN 10 Days #200 ml 10/28/24 Collagenase [Santyl Ointment*] 1 appl TOP DAILY #1 gm 11/08/24 Hydrocortisone Cream [Hydrocortisone 1% Cream*] 1 appl TOP TID PRN tube 11/08/24 Midodrine HCl [Proamatine*] 5 mg PO 1200,1700 #60 tab 11/08/24 Physician Discharge Instructions: Physician discharge instructions: Patient presented with worsening shortness of breath associated with cough, fatigue, weakness secondary to acute on chronic combined systolic and diastolic CHF exacerbation. Multiple readmission for CHF exacerbation. He was just noted to be recently discharged from 5th floor rehab on the . Patient was started on IV lasix and had improvement of his symptoms. Cardiology was consulted who agreed with diuresis and recommended patient follow up in the office in a few weeks for further management. During his hospitalization, patient requested to speak with a psych social worker to discuss further planning as he didn't think he could continue to take care of himself completely at home by himself for the time being. Patient was feeling better, breathing more comfortably, and was deemed stable for discharge. Medications: Follow up: PCP 3-5 days Cardiology in 2-4 weeks Please call to schedule / confirm appointments Followup: NONE,NONE [Primary Care Provider] - Time spent managing pt's care (in minutes): 45
== END 2024-11-17 17:24 | DRG 291 ==
LOC: ER 06:04 → ERHOLD 08:36 → 4TH 12:46
PROVIDERS: ADMIT Hospitalist; ATTEND Hospitalist
DX: I13.0 Hypertensive heart and chronic kidney disease with heart failure and stage 1 through stage 4 chronic kidney disease, or unspecified chronic kidney disease (principal); I50.43 Acute on chronic combined systolic (congestive) and diastolic (congestive) heart failure; I25.810 Atherosclerosis of coronary artery bypass graft(s) without angina pectoris; E87.1 Hypo-osmolality and hyponatremia; N18.32 Chronic kidney disease, stage 3b; E11.22 Type 2 diabetes mellitus with diabetic chronic kidney disease; E11.65 Type 2 diabetes mellitus with hyperglycemia; E11.40 Type 2 diabetes mellitus with diabetic neuropathy, unspecified; E11.51 Type 2 diabetes mellitus with diabetic peripheral angiopathy without gangrene; D63.1 Anemia in chronic kidney disease; D50.9 Iron deficiency anemia, unspecified; E03.9 Hypothyroidism, unspecified; E83.51 Hypocalcemia; E87.5 Hyperkalemia; E78.5 Hyperlipidemia, unspecified; I48.91 Unspecified atrial fibrillation; K21.9 Gastro-esophageal reflux disease without esophagitis; N40.0 Benign prostatic hyperplasia without lower urinary tract symptoms; B95.61 Methicillin susceptible Staphylococcus aureus infection as the cause of diseases classified elsewhere; R79.89 Other specified abnormal findings of blood chemistry; Z88.5 Allergy status to narcotic agent; Z79.4 Long term (current) use of insulin; Z95.1 Presence of aortocoronary bypass graft; Z79.01 Long term (current) use of anticoagulants; Z11.52 Encounter for screening for COVID-19; Z79.84 Long term (current) use of oral hypoglycemic drugs; Z85.46 Personal history of malignant neoplasm of prostate; Z79.899 Other long term (current) drug therapy; Z89.512 Acquired absence of left leg below knee
CPT/HCPCS: 36415; 71045; 80048; 80053; 80076; 81001; 82947; 83690; 83735; 83880; 84100; 84439; 84443; 84484; 85025; 85027; 85610; 87086; 87088; 87428; 93005; 96361; 96372; 96374; 97116; 97161; 97530; 99285; J1644; J1815; J1938; J2405; J3590; Q5106